=== PATIENT | male | born 1945 | race Caucasian/White ===

== ENCOUNTER → 2018-08-25 | Outpatient (CLI) | payer MEDICARE, OTHER, SELFPAY ==
--- NOTE | 2018-08-25 08:44 | ART_ITS ---
Reason For Study: Claudication Procedure A bilateral lower extremity continuous wave Doppler with analog waveform analysis,segmental pressures,and ankle brachial indexes with exercise. Left Segmental Pressures Left brachial= 125mmHg. Left posterior tibial artery = 156mmHg. Left dorsalis pedis artery = 154mmHg. The left dorsalis pedis waveforms are triphasic. The left posterior tibial artery waveforms are triphasic. Right Segmental Pressures Right brachial= 130mmHg. Right posterior tibial artery = 152mmHg. Right dorsalis pedis artery = 154mmHg. The right dorsalis pedis waveforms are triphasic. The right posterior tibial artery waveforms are triphasic. Indices The right ankle brachial index by the dorsalis pedis is 1.18. The right ankle brachial index by the posterior tibial artery is 1.17. The right post exercise ankle brachial index is 1.34. The left ankle brachial index by the dorsalis pedis is 1.18. The left ankle brachial index by the posterior tibial artery is 1.20. The left post exercise ankle brachial index is 1.44. Interpretation Summary Triphasic Doppler waveforms are noted at ankle level bilaterally. Pulse-volume recording waveform amplitudes are satisfactory bilaterally. Resting ankle-brachial indices are bilaterally normal. Following 5 minutes of ambulation on a treadmill at 1.5 mph and a 5% grade, ankle pressures augment bilaterally, which is a normal physiological response. There is no evidence of significant arterial occlusive disease in the lower extremities bilaterally. Ordering Physician: Marci Rose Referring Physician: Marci Rose Performed By: Tracey Hill RVT
== END | disposition home or self-care (01) ==
LOC: CVS 08:40
PROVIDERS: Family Provider Internal Medicine; PCP Internal Medicine; Referring Provider Internal Medicine; Visit Provider Internal Medicine
DX: I73.9 Peripheral vascular disease, unspecified (principal)
CPT/HCPCS: 93924

== ENCOUNTER 2018-10-11 01:35 | Emergency (ER) | payer MEDICARE, OTHER, SELFPAY ==
[2018-10-11 01:38] VITALS: BP 140/94; PULSE 61; PULSE 74; RESP 16; TEMP 37; O2SAT 97; O2SAT 99; BMI 22.8
--- NOTE | 2018-10-11 01:53 | RAD_ITS ---
STUDY: X-RAY - PELVIS REASON FOR EXAM: Male, 73 years old. Fall TECHNIQUE: One view of the pelvis was obtained. COMPARISON: None. FINDINGS: There is a non-specific bowel gas pattern. Normal visualized soft tissue structures. There is diffuse demineralization of the osseous structures. There is narrowing with cortical sclerosis and osteophyte formation of the sacroiliac joint consistent with degenerative osteoarthritic changes. Normal visualized bilateral superior and inferior pubic rami. There are degenerative changes of the pubic symphysis with articular narrowing and sclerosis. Normal ischial tuberosities. There are osteoarthritic changes of the right femoral head with marginal osteophyte formation. Normal right acetabulum. Normal right hip joint. There are osteoarthritic changes of the left femoral head with marginal osteophyte formation. Normal left acetabulum. Normal left hip joint. RAD/Pelvis 1 or 2 Views IMPRESSION: Degenerative changes and demineralization of the pelvis. Electronically Signed: Bibi Simpson, at 3:08 EDT Tel , Service support ,
--- NOTE | 2018-10-11 01:53 | RAD_ITS ---
STUDY: X-RAY - LUMBAR SPINE REASON FOR EXAM: Male, 73 years old. Fall. Lower back pain TECHNIQUE: 3 view(s) of the lumbar spine were obtained. COMPARISON: None FINDINGS: Normal lumbar lordosis. There is no substantial scoliosis. There is a normal alignment of the vertebrae. There is diffuse demineralization with multi-level endplate spondylosis. There is multi-level degenerative disc disease with multi-level disc space narrowing. The soft tissue structures are unremarkable. RAD/Lumbar Spine 2 or 3 Views IMPRESSION: Degenerative changes of the spine, as detailed above. Electronically Signed: Bibi Simpson, at 3:35 EDT Tel , Service support ,
--- NOTE | 2018-10-11 01:53 | RAD_ITS ---
STUDY: X-RAY - SACRUM/COCCYX REASON FOR EXAM: Male, 73 years old. Fall. Tailbone pain TECHNIQUE: 3 view(s) of the sacrum and coccyx were obtained. COMPARISON: None. FINDINGS: There is degenerative arthrosis of the bilateral sacroiliac joints. There is demineralization of the sacral ala. Normal sacrococcygeal junction with a normal angulation. There is demineralization of the coccygeal segments. The presacral soft tissue structures are unremarkable. RAD/Sacrum-Coccyx min 2 Views IMPRESSION: No acute bone injury of the sacrum and coccyx. Electronically Signed: Bibi Simpson, at 3:38 EDT Tel , Service support ,
--- NOTE | 2018-10-11 02:07 | ED.DCSUM_ITS ---
- ER Visit Summary Date of Service: 10/11/18 Chief Complaint: Fall History of Present Illness: The patient is a 73 M presenting after mechanical fall. Patient states that he was flying a model airplane and lost his balance. He fell backward landing on his buttock. He states he did not hit his head or lose consciousness. He has been able to ambulate. He has pain in his low back. Denies other injuries. He is not on anticoagulants. Physical Examination: Vitals are stable. Patient is afebrile. Alert no acute distress. HEENT exam is unremarkable. Neck is nontender Lungs are clear and equal bilaterally. Heart is regular rate and rhythm. Abdomen is soft nontender nondistended. Back: Mild diffuse lumbar tenderness, no step-off Extremities are unremarkable. Skin is warm and dry. No focal neurologic deficit. Remainder of exam is unremarkable. Emergency Department Course and Treatment: Lumbar spine x-ray, sacrum x-ray, pelvis x-ray showed no fracture. Patient is advised to follow-up with his primary care physician. Advised to return to ED for worsening complaints. Disposition: Discharge home Impression: Lumbar strain, mechanical fall This note was generated with [employer] dictation software. It may contain incorrect words, spelling, and punctuation that were not noted in review of the chart prior to signing ED Disposition - Plan for ED Patient: Instructions: BACK AND NECK PAIN, General Referrals: Marci Rose DO [Primary Care Provider] -
--- NOTE | 2018-10-11 03:54 | ED.DEP ---
ED Disposition - Plan for ED Patient: Instructions: BACK AND NECK PAIN, General Referrals: Marci Rose DO [Primary Care Provider] -
--- NOTE | 2018-10-11 03:58 | ED.DEP ---
ED Disposition - Plan for ED Patient: Instructions: BACK AND NECK PAIN, General Prescriptions: Hydrocodone Bitart/Apap 5-325 [[place] 5MG-325MG] 1 tablet PO Q6H PRN PRN 3 Days #8 tablet PRN Reason: Pain Referrals: Marci Rose DO [Primary Care Provider] -
[2018-10-11 04:04] VITALS: BP 135/92; PULSE 65; RESP 20; O2SAT 100
== END 2018-10-11 04:06 | disposition home or self-care (01) ==
PROVIDERS: Emergency Provider Emergency Medicine; Family Provider Internal Medicine; PCP Internal Medicine
DX: S39.012A Strain of muscle, fascia and tendon of lower back, initial encounter (principal); I10 Essential (primary) hypertension; E78.00 Pure hypercholesterolemia, unspecified; Z79.899 Other long term (current) drug therapy; W01.0XXA Fall on same level from slipping, tripping and stumbling without subsequent striking against object, initial encounter; Y93.89 Activity, other specified; Y92.89 Other specified places as the place of occurrence of the external cause; Y99.8 Other external cause status
CPT/HCPCS: 72100; 72170; 72220; 99282

== ENCOUNTER → 2018-10-17 15:08 | Outpatient (CLI) | payer MEDICARE, OTHER, SELFPAY ==
[2018-10-11 01:38] VITALS: BMI 22.8
--- NOTE | 2018-10-17 15:22 | MRI_ITS ---
STUDY: MRI LUMBAR SPINE WITHOUT CONTRAST REASON FOR EXAM: Male, 73 years old. Back and bilateral leg pain TECHNIQUE: Standardized fat and water weighted pulse sequences were obtained in the sagittal and axial planes. COMPARISON: Radiographic study on October 11, 2018 FINDINGS: No evidence for acute fracture or subluxation. There is low signal intensity on T1 within the central portion of the L3 vertebral body which increases in signal T2 and STIR imaging sequence system with intramedullary bone marrow edema as well as very subtle hairline fracture T12-L1: Normal endplates. Normal disc height, hydration and morphology. Normal bilateral facet joints. Normal central canal and bilateral lateral recesses. Normal bilateral intervertebral neural foramina. Normal lumbar lordosis. There is no substantial scoliosis. Normal conus medullaris that terminates at T12-L1 L1-2: Mild endplate spurring. Normal disc height, desiccation and minimal annular bulge. Normal bilateral facet joints. Normal central canal and bilateral lateral recesses. Normal bilateral intervertebral neural foramina. L2-3: Normal endplates. Normal disc height, desiccation and minor annular bulge with small left foraminal disc protrusion.. Facet arthropathy and thickening of ligamenta flava.. Normal central canal and bilateral lateral recesses. Mild right neuroforaminal encroachment and mild to moderate narrowing on the left L3-4: Endplate spurring.. Normal disc height, desiccation and mild bulging of the annulus and small left foraminal disc protrusion. Mild facet arthropathy and thickening of ligamenta flava.. Normal central canal and bilateral lateral recesses.. Mild right neuroforaminal encroachment and moderate narrowing on the left L4-5: Grade 1 spondylolisthesis. Normal disc height and mild bulging disc osteophyte complex. Bilateral facet arthropathy and thickening of ligamenta flava association with small synovial cyst on the right moderate narrowing of the central canal. Severe right lateral recess and neuroforaminal stenosis. Moderate to severe left lateral recess and neuroforaminal stenosis exaggerated by shortened pedicles. L5-S1: Mild endplate spurring.. Normal disc height, desiccation and mild annular bulge. Facet arthropathy and thickening of ligamenta flava greater on the left. Mild narrowing of the central canal. Mild right lateral recess and neuroforaminal stenosis with moderate narrowing on the left. Normal visualized sacral ala. Normal visualized paraspinous soft tissue structures. No significant change since prior study given differences attributed to differences in imaging techniques MRI/Spine Lumbar (Routine) IMPRESSION: Findings consistent with acute hairline fracture of L3. Multilevel spinal stenosis secondary to disc disease and bony hypertrophy most severe at L4-5 in association with spondylolisthesis and synovial cyst on the right. Other findings as above Electronically Signed: Wojciech Sharif MD at 16:50 EDT , Service support ,
== END ==
PROVIDERS: Family Provider Internal Medicine; PCP Internal Medicine; Referring Provider Internal Medicine; Visit Provider Internal Medicine
DX: M79.606 Pain in leg, unspecified (principal)
CPT/HCPCS: 72148

== ENCOUNTER 2020-02-26 14:32 | Emergency (ER) | payer MEDICARE, OTHER, SELFPAY ==
[2020-02-26] VITALS (7 sets, daily range): BP systolic 111–129; BP diastolic 77–89; PULSE 104–128; RESP 16–28; TEMP 37.2–38.2; O2SAT 92–96; BMI 22.4
--- NOTE | 2020-02-26 15:55 | EKG12_ITS ---
Test Reason : GENERAL ILLNESS Blood Pressure : / mmHG Vent. Rate : 113 BPM Atrial Rate : 113 BPM P-R Int : 142 ms QRS Dur : 088 ms QT Int : 334 ms P-R-T Axes : 045 -38 029 degrees QTc Int : 458 ms Sinus tachycardia Left axis deviation Abnormal ECG Confirmed by GENNA SILVESTRE, SUGAR ([id number]), offline editor JON SALEH ([id number]) on 02/28/2020 10:46:41 AM Referred By: MARY Confirmed By:SUGAR VAIL MD
--- NOTE | 2020-02-26 15:56 | ED.VIS.URI ---
History of Present Illness Chief Complaint: Nausea/Vomiting Informant: Patient Onset: Days - 3 Timing: Continuous Quality: malaise, nausea, cough Current Severity: Moderate Maximum Severity: Moderate Worsened by: - - n/a Relieved by: - - nothing Associated Symptoms: Nausea, Vomiting - mild, Nonproductive cough. Negative for: Nasal Congestion, Headache, Myalgias, Diarrhea, Shortness of Breath, Chest Pain, Hemoptysis Narrative: Patient has had fevers, chills, malaise, nonproductive cough, nausea with decreased appetite and oral intake including fluids, and a couple episodes of nonbilious nonbloody emesis. He denies any chest or abdominal pain. Denies any myalgias, headaches. No loss of taste or smell. He lives alone. Patient presents during the national coronavirus emergency declaration/pandemic. He denies any known contact with anyone infected with COVID-19. He denies traveling out of the immediate area recently. He states that whenever he goes out to stores he wears a mask and tries to be careful during the pandemic. - Past Medical History (1) Hypertension Status: Chronic (2) Hyperlipidemia Status: Chronic (3) Hypothyroidism Status: Chronic (4) Depression Status: Chronic (5) Spinal stenosis Status: Chronic Past Medical History - Allergies and Home Meds Allergies/Adverse Reactions: Allergies No Known Allergies Allergy (Verified 02/26/20 14:37) Primary Care Physician: Marci Rose DO [Primary Care Provider] - As Needed Lives: Alone Smoking Status: Never smoker Review of Systems General: Reports: Chills, Fever, Malaise, Subjective. Denies: Sweats Eyes: Denies: Visual changes - bilaterally, Diplopia ENT: Denies: Bilateral ear pain, Rhinorrhea, Sore throat Cardiovascular: Denies: Chest pain, Palpitations Respiratory: Reports: Cough. Denies: Dyspnea, Sputum, Dyspnea on exertion, Orthopnea Gastrointestinal: Reports: Nausea, Vomiting. Denies: Abdominal pain, Diarrhea, Melena, Hematochezia Genitourinary: Denies: Dysuria, Hematuria, Frequency Musculoskeletal: Denies: Myalgias, Back pain, Swelling, Extremity Pain Skin: Denies: Rash, Wounds Neurological: Denies: Headache, Weakness, Numbness Physical Exam Vital Signs/Narrative: Vital Signs Temp Pulse Resp BP Pulse Ox 02/26/20 15:36 100.8 F H 128 H 28 H 113/79 95 02/26/20 14:33 100.8 F H 128 H 16 113/79 95 Inital Vital Signs reviewed: Yes General: Well nourished, Well developed, - - Well-appearing no distress, conversive in full sentences Head: Normocephalic, Atraumatic Eyes: Perrl, EOMI Nose: Normal Inspection, No Rhinorrhea Mouth/Throat: Normal Inspection, No Posterior Erythema, Airway Patent Neck: Supple, Nontender, No Lymphadenopathy, No Meningismus Cardiovascular: Regular rate, Regular rhythm, No murmurs, Tachycardia Respiratory: No distress, CTA bilaterally, Chest nontender Abdomen: Soft, Nontender, Nondistended, Normal bowel sounds Back: Nontender, Normal Inspection. Negative for: CVA tenderness Extremities: Nontender, No edema. Negative for: Calf Tenderness Skin: Normal color, No rash, No Trauma Neurological: Alert, Oriented x3, Cranial nerves II-XII grossly intact, Normal Strength, Normal Sensation, Normal Gait Psychological: Normal affect, Normal Mood Diagnostic/Tx/Re-eval Chest X-Ray - ED: 1 View, Read by ED Physician, No Acute Disease, Chronic Changes Impressions Chest X-Ray 02/26/20 16:22 IMPRESSION: Low inspiratory volumes, obscured lower lobes. Recommend CT chest for definitive assessment. Electronically Signed: Jes Salamanca, at 16:57 EST Tel , Service support , 02/26/20 16:22 Chest 1 View (Portable) [RAD] Stat Laboratory Results 02/26/20 02/26/20 02/26/20 16:05 16:05 Unknown WBC 8.1 RBC 4.66 Hgb 14.6 Hct 41.9 MCV 89.9 MCH 31.3 MCHC 34.8 RDW Std Deviation 47.3 H RDW Coeff of Alan 15.3 H Plt Count 133 L MPV 11.1 Immature Gran % (Auto) 0.400 Neut % (Auto) 84.2 H Lymph % (Auto) 4.7 L Sampson % (Auto) 10.5 H Eos % (Auto) 0.0 Baso % (Auto) 0.2 Absolute Neuts (auto) 6.8 Absolute Lymphs (auto) 0.38 L Nucleated RBC % 0 Differential Comment SCANNED Sodium 137 Potassium 4.4 Chloride 106 Carbon Dioxide 26.0 Anion Gap 5 BUN 22 H Creatinine 1.40 H Estim Creat Clear Calc 50.49 Est GFR (MDRD) Af Amer 64 Est GFR (MDRD) Non-Af 53 L BUN/Creatinine Ratio 15.7 Glucose 104 Lactic Acid 1.6 Calcium 9.3 Total Bilirubin 0.40 AST 35 ALT 32 Alkaline Phosphatase 65 Troponin I < 0.015 Total Protein 7.7 Albumin 3.8 Globulin 3.9 Albumin/Globulin Ratio 1.0 - Rhythm Strip Rhythm Strip: Sinus Tach Rate: 110 Ectopy: None - EKG Initial EKG Interpretation: No Acute Injury Pattern, Sinus Tachycardia, LAFB Prior: No Prior - Medical Decision Making With Tylenol for his fever and fluids, Zofran, the patient is feeling better and his vital signs improved especially his heart rate, along with his fever. His work-up is consistent with COVID-19 disease that is otherwise uncomplicated. There is no sign of pneumonia on his chest x-ray, and although the interpretation above is noted, I do not think the results of the CT will change the management at this time. We ambulated him around the room, he became hypoxic to 89% on RA just w/ standing. He is in the mid-high 90s on a 2 L nasal cannula. Given this, he is not a candidate for the IV monoclonal antibody infusion, but he is well enough to be discharged home, will prescribe him Decadron in addition to the oxygen we are getting him from the emergency department. The patient was discharged home with appropriate information on this and COVID-19. ED Disposition - Plan for ED Patient: Disposition: Home or Assisted Living Diagnosis: Acute respiratory disease due to COVID-19 virus, Hypoxemia Instructions: Coronavirus Disease 2019 (COVID-19): Caring for Yourself or Others Prescriptions: Dexamethasone [Decadron] 6 mg PO DAILY 7 Days #7 tab Prescription Printed Oxygen, Home [Home Oxygen] 2 lpm NASAL CONT #1 unit Prescription Printed Referrals: Marci Rose DO [Primary Care Provider] - As Needed
[2020-02-26] MEDS: Acetaminophen 500 MG Tablet 1000 MG PO (16:04)
[2020-02-26] MEDS: Ondansetron 4 MG/2 ML Vial IV (16:04)
--- NOTE | 2020-02-26 16:22 | RAD_ITS ---
STUDY: X-RAY CHEST REASON FOR EXAM: Male, 74 years old. FEVER,CHILLS -- 2 TRIES AT FULL INSPIRATION TECHNIQUE: Frontal view of the chest COMPARISON: None. FINDINGS: Inspiratory volumes are low despite patient''s best effort and repeating the exam. There is bilateral basal atelectasis. Lower lobes are obscured by raised hemidiaphragms. There is no pneumothorax, pulmonary edema, pleural effusions or cardiac megaly. Osseous structures are intact. RAD/Chest 1 View (Portable) IMPRESSION: Low inspiratory volumes, obscured lower lobes. Recommend CT chest for definitive assessment. Electronically Signed: Jes Salamanca, at 16:57 EST Tel , Service support ,
[2020-02-26] MEDS: 0.9% Normal Saline 1,000 ML 125 ML IV (16:40)
[2020-02-26 16:46] LABS: AST(SGOT) 35 U/L (15-37); Alanine Aminotransfer ALT/SGPT 32 U/L (16-61); Albumin, Serum 3.8 g/dL (3.2-5.0); Alkaline Phosphatase 65 U/L (45-117); Anion Gap 5 (5-15); BUN 22 mg/dL (7-18); BUN/Creat Ratio 15.7 RATIO (10-20); Calcium,Total 9.3 mg/dL (8.5-10.1); Chloride 106 mmol/L (98-107); EST Glomerular Filtration Rate 53 mL/min (>60); Est Glom Filt Rate - Afr Amer 64 mL/min (>60); Estimated Creatinine Clearance 50.49 ml/min; Globulin 3.9 g/dL (2.2-4.2); Glucose 104 mg/dL (74-106); Potassium 4.4 mmol/L (3.5-5.1); Protein, Total 7.7 g/dL (6.4-8.2); Sodium Level 137 mmol/L (136-145)
[2020-02-26 16:50] LABS: Absolute Lymphocyte Count 0.38 X10^3/uL (0.83-4.51); Absolute Neutrophil Count 6.8 X10^3/uL (2.0-7.7); Basophil# 0.02 X10^3/uL; Basophil% 0.2 % (0-1); Hematocrit 41.9 % (40-54); Hemoglobin 14.6 g/dL (13.0-16.5); Lymphocyte # 0.38 X10^3/ul (4.0); Lymphocyte % 4.7 % (19-41); Mean Corp Hgb Conc 34.8 g/dL (32-36); Mean Corpuscular Hgb 31.3 pg (27.0-32.0); Mean Corpuscular Volume 89.9 fL (80-94); Mean Platelet Vol. 11.1 fl (6.2-12.0); Monocyte# 0.85 X10^3/uL; Monocyte% 10.5 % (0-10); NRBC Flagged by Analyzer 0 % (0-5); Neutrophil # 6.79 X10^3/uL (2.7-7.7); Neutrophil % 84.2 % (47-70); POSITIVE DIFFERENTIAL YES; Platelet Count 133 K/mm3 (150-450); RBC Distribution Width CV 15.3 % (11.6-14.6); RBC Distribution Width SD 47.3 fl (35.1-43.9); Red Blood Count 4.66 M/mm3 (4.6-6.2); White Blood Count 8.1 K/mm3 (4.4-11.0)
[2020-02-26 16:53] LABS: Differential Indicated SCAN CRITERIA MET
[2020-02-26 17:17] LABS: Differential Comment SCANNED
[2020-02-26 17:22] LABS: Lactic Acid 1.6 mmol/L (0.4-1.9)
--- NOTE | 2020-02-26 18:25 | CM.ED ---
SOCIAL WORK Informant: Dr. Andrew Reason for Consult: Discharge Planning-Home O2 due to positive COVID-19 Call to patient's room. Introduced role and reason for referral. Discussed home O2 set up. Patient in agreement for home O2 to be set up through [employer]. Patient A&Ox3. Patient lives home alone, but states has relatives that live locally and are able to check on patient. Patient reports does not smoke. Patient reports does not have pulse ox at home. Informed patient he will be sent home with portable tank and pulse ox. Educated patient on home O2 follow up and that RT to be in to review use of O2 and pulse ox with patient. Patient verbalized understanding and thanked this worker. Nursing staff updated. [facility], [employer], and positive COVID-19 test results faxed and called to [employer], spoke with Elodia. Plan: Home with Home O2. Guanako Amor, PROJECT PLANNER, CHRISTIAN COUNSELOR
--- NOTE | 2020-02-26 19:35 | CM.ED ---
SOCIAL WORK Received call from Cezar with [employer]. Updated patient waiting on ride. [facility] will meet patient at home to set up O2. Patient updated. Guanako Amor, HOT PUNCH PRESS OPERATOR, WHEEL SETTER
--- NOTE | 2020-02-27 14:05 | CASEMGMT ---
LUCRECIA LAWSON DC PHONE CALL DC DATE: 02/26/2020 DC Disposition: Home with oxygen Diagnosis on Discharge: COVID 19 Intro role of CM to patient via phone. Patient had not been wearing his oxygen at home yet. He had mild conversational dyspnea. Asked pt what his pulse oximeter was reading and he stated he did not know as it was in his bag from ER. Offered to wait while patient found pulse ox but he stated he would get it and put his oxygen on. LUCRECIA LAWSON reviewed wearing his oxygen and checking pulse ox at rest and with activity and to notify his PCP with any increased shortness of breath or pulse ox staying below 89% at rest. Pt stated he would. -He has his medications, no questions. Sohan BECKWITHN RN ACM
--- NOTE | 2020-02-28 15:28 | CASEMGMT ---
LUCRECIA LAWSON DC PHONE CALL DC DATE: 02/26/2020 DC Disposition: Home with oxygen Diagnosis on Discharge: COVID 19 Intro role of CM to patient via phone. Pt states he wore his oxygen overnight and states is 'feeling a little better.' Pt is speaking in full sentences at this time. Pt states was having some concerns with his concentrator and was just picking up the phone to call [employer] and will call him as soon as he is off phone. Pt states no SOB or fevers at this time. Pt states no questions regarding discharge instructions/medications at this time. Pt thanks this RN CM for call and states no further questions/concerns/needs at this time. SStaten LUCRECIA LAWSON
--- NOTE | 2020-02-29 10:15 | CASEMGMT ---
LUCRECIA LAWSON DC PHONE CALL DC DATE: 02/26/2020 DC Disposition: Home with oxygen Diagnosis on Discharge: COVID 19 Attempted to reach pt without success at this time, message left for pt to call this LUCRECIA LAWSON back if/when able. Attempted to call [facility] to see if they went out to check pt's concentrator but unable to reach them at this time. Will attempt again later. Eliu SINGER CM
== END 2020-02-26 20:06 | disposition home or self-care (01) ==
PROVIDERS: Emergency Provider Emergency Medicine; PCP Internal Medicine
DX: U07.1 COVID-19 (principal); R09.02 Hypoxemia; J06.9 Acute upper respiratory infection, unspecified; I10 Essential (primary) hypertension; E78.5 Hyperlipidemia, unspecified; E03.9 Hypothyroidism, unspecified; Z99.81 Dependence on supplemental oxygen; Z79.899 Other long term (current) drug therapy
CPT/HCPCS: 71045; 80053; 83605; 84484; 85025; 87426; 93005; 96361; 96374; 99285; J7030; A4216; J2405

== ENCOUNTER 2020-03-02 15:03 | Inpatient (IN) | payer MEDICARE, OTHER, SELFPAY ==
[2020-02-26 14:33] VITALS: BMI 22.4
[2020-03-02] VITALS (9 sets, daily range): BP systolic 131–138; BP diastolic 78–97; PULSE 78–106; RESP 16–27; TEMP 36.4–37.4; O2SAT 91–96; BMI 22.4; BMI 23.0
--- NOTE | 2020-03-02 15:17 | EKG12_ITS ---
Test Reason : Blood Pressure : / mmHG Vent. Rate : 095 BPM Atrial Rate : 095 BPM P-R Int : 134 ms QRS Dur : 090 ms QT Int : 334 ms P-R-T Axes : 037 -33 031 degrees QTc Int : 419 ms Normal sinus rhythm with sinus arrhythmia Left axis deviation Abnormal ECG Confirmed by GIANNI SILVESTRE, ROLO ([id number]), senior editor JON SALEH ([id number]) on 03/07/2020 10:10:49 AM Referred By: AL Confirmed By:KIMMY ARCHER MD
--- NOTE | 2020-03-02 15:19 | ED.DCSUM_ITS ---
History of Present Illness Chief Complaint: Cough Informant: Patient Onset: Days Context: Gradual Onset Current Severity: Moderate Maximum Severity: Moderate Narrative: Patient seen in the ER on February 25 and diagnosed with Covid. He was treated with Decadron and home oxygen. Patient returns today stating he is just not feeling any better. In spite of wearing his oxygen at home he states he has episodes where he feels smothered and has difficulty breathing. He has not had significant chest pain. His cough is nonproductive. He does report eating but states he is full after just a few bites. - Past Medical History (1) Depression Status: Chronic (2) Hyperlipidemia Status: Chronic (3) Hypertension Status: Chronic (4) Hypothyroidism Status: Chronic (5) Spinal stenosis Status: Chronic Past Medical History - Allergies and Home Meds Allergies/Adverse Reactions: Allergies No Known Allergies Allergy (Verified 03/02/20 15:06) Prior records reviewed: Yes Smoking Status: Never smoker - Family History Maternal Family History: Reports: - - Patient denies any market maternal family history including heart disease, diabetes, cancer. Paternal Family History: Reports: Pulmonary Disease - Patient notes his father had underlying lung disease with significant heavy tobacco use. Review of Systems General: Denies: Chills Eyes: Denies: Visual changes - bilaterally ENT: Denies: Bilateral ear pain Cardiovascular: Denies: Chest pain Respiratory: Reports: Dyspnea, Cough. Denies: Sputum Gastrointestinal: Denies: Abdominal pain, Vomiting, Diarrhea Musculoskeletal: Reports: Myalgias Neurological: Reports: Weakness - Generalized weakness Hematologic: Denies: Easy bruising, Easy bleeding Allergy: Denies: Uticaria Physical Exam Vital Signs/Narrative: Vital Signs Temp Pulse Resp BP Pulse Ox 03/02/20 15:04 97.6 F L 106 H 16 132/88 H 96 Inital Vital Signs reviewed: Yes General: Well nourished, Well developed Head: Normocephalic ENT: Moist mucous membranes Neck: Supple Cardiovascular: Regular rate, Regular rhythm Respiratory: Diminished Abdomen: Soft, Nontender Extremities: Nontender Skin: Normal color Neurological: Alert, Oriented x3 Psychological: Normal affect Diagnostic/Tx/Re-eval Chest X-Ray - ED: 1 View, Read by ED Physician, Chronic Changes - Shallow inspiration. Questionable infiltrate left base. Impressions Chest X-Ray 03/02/20 15:45 IMPRESSION: Continued shallow chest expansion with bilateral atelectatic changes. Negative for other infiltrates in the upper lung zones. Lung bases partially obscured by diaphragms. Electronically Signed: Ambar Dubon MD at 16:07 EST , Service support , Chest CTA 03/02/20 16:15 IMPRESSION: Negative for pulmonary embolus. Mild plaque and elongation of the thoracic aorta without aneurysm or dissection. Normal cardiac size without pericardial effusion. Shallow inspiration or elevation of the diaphragms with bibasilar atelectatic changes with more consolidative features in the left posterior costophrenic angle, potential pneumonia. Dense band of atelectasis in the superior segment left lower lobe. Otherwise minimal scattered groundglass changes. Negative for pleural effusion. No acute bone findings or acute findings in the uppermost abdomen. Electronically Signed: Ambar Dubon MD at 17:27 EST , Service support , 03/02/20 15:45 Chest 1 View (Portable) [RAD] Stat 03/02/20 16:15 CTA Chest W/WO Contrast [CT] Stat Laboratory Results 03/02/20 03/02/20 03/02/20 15:30 15:30 15:30 WBC 6.7 RBC 4.95 Hgb 13.9 Hct 42.6 MCV 86.1 MCH 28.1 MCHC 32.6 D RDW Std Deviation 45.0 H RDW Coeff of Alan 14.3 Plt Count 131 L MPV 10.9 Immature Gran % (Auto) 0.900 Neut % (Auto) 82.2 H Lymph % (Auto) 7.7 L [place] % (Auto) 8.9 Eos % (Auto) 0.0 Baso % (Auto) 0.3 Absolute Neuts (auto) 5.5 Absolute Lymphs (auto) 0.51 L Nucleated RBC % 0 Differential Comment SCANNED D-Dimer Quant (PE/DVT) 0.74 H* Sodium 136 Potassium 4.0 Chloride 105 Carbon Dioxide 24.0 Anion Gap 7 BUN 28 H Creatinine 1.23 Estim Creat Clear Calc 57.47 Est GFR (MDRD) Af Amer 74 Est GFR (MDRD) Non-Af 61 BUN/Creatinine Ratio 22.8 H Glucose 106 Lactic Acid Calcium 8.8 Total Bilirubin 0.50 Direct Bilirubin 0.21 AST 33 ALT 34 Alkaline Phosphatase 53 Troponin I < 0.015 Total Protein 7.3 Albumin 3.3 Globulin 4.0 03/02/20 15:30 WBC RBC Hgb Hct MCV MCH MCHC RDW Std Deviation RDW Coeff of Alan Plt Count MPV Immature Gran % (Auto) Neut % (Auto) Lymph % (Auto) [place] % (Auto) Eos % (Auto) Baso % (Auto) Absolute Neuts (auto) Absolute Lymphs (auto) Nucleated RBC % Differential Comment D-Dimer Quant (PE/DVT) Sodium Potassium Chloride Carbon Dioxide Anion Gap BUN Creatinine Estim Creat Clear Calc Est GFR (MDRD) Af Amer Est GFR (MDRD) Non-Af BUN/Creatinine Ratio Glucose Lactic Acid 1.2 Calcium Total Bilirubin Direct Bilirubin AST ALT Alkaline Phosphatase Troponin I Total Protein Albumin Globulin - EKG Initial EKG Interpretation: Sinus Rhythm - Sinus at 95 with sinus arrhythmia. No acute ST change. - Medical Decision Making Patient was observed. Sitting at rest he is stable on room air. With ambul ation he dropped his O2 sat to 87%. Patient has been on home O2 as needed without significant improvements. He does live alone. Lab work is reviewed. D-dimer is elevated and CTA does not show evidence of PE. Chest x-ray per my interpretation reveals chronic changes with questionable infiltrate. Patient will be admitted for further treatment. ED Disposition - Plan for ED Patient: Disposition: Home or Assisted Living Diagnosis: COVID-19
[2020-03-02 15:42] LABS: Absolute Lymphocyte Count 0.51 X10^3/uL (0.83-4.51); Absolute Neutrophil Count 5.5 X10^3/uL (2.0-7.7); Basophil# 0.02 X10^3/uL; Basophil% 0.3 % (0-1); Hematocrit 42.6 % (40-54); Hemoglobin 13.9 g/dL (13.0-16.5); Lymphocyte # 0.51 X10^3/ul (4.0); Lymphocyte % 7.7 % (19-41); Mean Corp Hgb Conc 32.6 g/dL (32-36); Mean Corpuscular Hgb 28.1 pg (27.0-32.0); Mean Corpuscular Volume 86.1 fL (80-94); Mean Platelet Vol. 10.9 fl (6.2-12.0); Monocyte# 0.59 X10^3/uL; Monocyte% 8.9 % (0-10); NRBC Flagged by Analyzer 0 % (0-5); Neutrophil # 5.47 X10^3/uL (2.7-7.7); Neutrophil % 82.2 % (47-70); POSITIVE DIFFERENTIAL YES; Platelet Count 131 K/mm3 (150-450); RBC Distribution Width CV 14.3 % (11.6-14.6); Red Blood Count 4.95 M/mm3 (4.6-6.2); White Blood Count 6.7 K/mm3 (4.4-11.0)
--- NOTE | 2020-03-02 15:45 | RAD_ITS ---
STUDY: X-RAY CHEST REASON FOR EXAM: Male, 74 years old. COVID POSITIVE. COUGH. TECHNIQUE: 1 view COMPARISON: Prior chest radiograph of 02/26/2020 FINDINGS: Continued shallow chest expansion with basilar atelectasis on the right and broad bands of atelectasis in the left mid lung. Negative for other infiltrate types in the upper lung zones. Lung bases largely obscured by the diaphragms. Normal size heart. Normal mediastinum and bernardino. Normal visualized pulmonary arteries. There is atherosclerotic tortuosity of the aortic arch and descending thoracic aorta. Degenerative changes of the spine with a dextroscoliosis. Normal visualized ribs, clavicles, and shoulders. There is no demonstrated abnormality of the visualized soft tissue structures of the upper abdomen. RAD/Chest 1 View (Portable) IMPRESSION: Continued shallow chest expansion with bilateral atelectatic changes. Negative for other infiltrates in the upper lung zones. Lung bases partially obscured by diaphragms. Electronically Signed: Ambar Dubon MD at 16:07 EST , Service support ,
[2020-03-02 16:00] LABS: AST(SGOT) 33 U/L (15-37); Alanine Aminotransfer ALT/SGPT 34 U/L (16-61); Albumin, Serum 3.3 g/dL (3.2-5.0); Alkaline Phosphatase 53 U/L (45-117); Anion Gap 7 (5-15); BUN 28 mg/dL (7-18); BUN/Creat Ratio 22.8 RATIO (10-20); Bilirubin, Direct 0.21 mg/dL (0.00-0.30); Calcium,Total 8.8 mg/dL (8.5-10.1); Chloride 105 mmol/L (98-107); Creatinine, Serum 1.23 mg/dL (0.70-1.30); EST Glomerular Filtration Rate 61 mL/min (>60); Est Glom Filt Rate - Afr Amer 74 mL/min (>60); Estimated Creatinine Clearance 57.47 ml/min; Glucose 106 mg/dL (74-106); Protein, Total 7.3 g/dL (6.4-8.2); Sodium Level 136 mmol/L (136-145)
[2020-03-02 16:06] LABS: Lactic Acid 1.2 mmol/L (0.4-1.9)
[2020-03-02 16:10] LABS: D-Dimer Quantitative (DVT/PE) 0.74 FEU/ug/m (0.27-0.49)
[2020-03-02 16:11] LABS: Differential Indicated SCAN CRITERIA MET
--- NOTE | 2020-03-02 16:15 | CT_ITS ---
STUDY: CTA CHEST REASON FOR EXAM: Male, 74 years old. Worsening SOB, + COVID 5 days ago. Hx hypertension. RADIATION DOSAGE (If Supplied By Facility): CTDIvol = ( 11.11 ) mGy, DLP = ( 396.18 ) mGycm TECHNIQUE: The examination was performed with the intravenous administration of IV 100mL Isovue-370. Post-processing of the angiographic images was performed, with multiplanar reformation and 3D reconstruction. Individualized dose optimization techniques were used for this CT. COMPARISON: Portable chest radiograph from 03/02/2020 FINDINGS: Normal enhancement of the main pulmonary artery and right and left pulmonary arteries. Normal enhancement of the bilateral peripheral pulmonary arteries. There is no demonstrated pulmonary embolism. Mild elongation of the thoracic aorta with minimal plaque. Negative for aneurysm. There is no demonstrated aortic dissection. Normal heart and pericardium. Normal mediastinum. Normal hilar regions. Normal visualized trachea and bronchi. Shallow inspiration or elevated diaphragms. Next field bibasilar atelectatic changes with more consolidative features in the left posterior costophrenic angle. Dense band of atelectasis in the superior segment of left lower lobe. Otherwise scattered minimal groundglass changes. Negative for pleural effusion. Normal chest wall structures. There are degenerative changes of thoracic spine. No acute findings in the uppermost abdomen. CT/CTA Chest W/WO Contrast IMPRESSION: Negative for pulmonary embolus. Mild plaque and elongation of the thoracic aorta without aneurysm or dissection. Normal cardiac size without pericardial effusion. Shallow inspiration or elevation of the diaphragms with bibasilar atelectatic changes with more consolidative features in the left posterior costophrenic angle, potential pneumonia. Dense band of atelectasis in the superior segment left lower lobe. Otherwise minimal scattered groundglass changes. Negative for pleural effusion. No acute bone findings or acute findings in the uppermost abdomen. Electronically Signed: Ambar Dubon MD at 17:27 EST , Service support ,
[2020-03-02 16:34] LABS: Differential Comment SCANNED
--- NOTE | 2020-03-02 16:49 | PCM.HP.STD ---
Problem List (1) Hypoxia Status: Acute (2) COVID-19 Status: Acute (3) Hypertension Status: Chronic Qualifiers: Hypertension type: essential hypertension Qualified Code(s): I10 - Essential (primary) hypertension (4) Hyperlipidemia Status: Chronic Qualifiers: Hyperlipidemia type: unspecified Qualified Code(s): E78.5 - Hyperlipidemia, unspecified (5) Hypothyroidism Status: Chronic Qualifiers: Hypothyroidism type: unspecified Qualified Code(s): E03.9 - Hypothyroidism, unspecified (6) Depression Status: Chronic Qualifiers: Depression Type: unspecified Qualified Code(s): F32.9 - Major depressive disorder, single episode, unspecified (7) Spinal stenosis Status: Chronic Qualifiers: Spinal region: unspecified Qualified Code(s): M48.00 - Spinal stenosis, site unspecified History of Present Illness Date of Admission: 03/02/20 Chief Complaint: Fever, chills, nausea, emesis, cough, dyspnea, COVID positive The patient is a 74 y/o M w/ PMHx: HTN, HLD, Hypothyroidism, Depression, Chronic back pain with spinal stenosis who presents to the [facility] ED on 03/02/20 with history of recent evaluation on 02/26/20 secondary to onset of fever, chills, nausea, emesis, malaise, myalgias, cough and dyspnea x 3 days with + COVID testing at that time with noted hypoxia with activity with discharge to home on decadron and 2L NC who now re-presents to the [facility] ED with ongoing symptoms, not improving and increased dyspnea, describes it as being smothered. Work-up in the ED included T, 97.6, heart rate 106, BP 132/88, respiratory rate 97, 96% on room air at rest but noted to be 87% on room air with exertion, clinically improved with resumption of 2 L nasal cannula, CBC with WC 6.7, hemoglobin 13.9, platelet 131 with lymphopenia, D-dimer 0.74, CMP not marked appearing aside BUN/creatinine 28/1.23, troponin less than 0.015, lactic acid 1.2, blood culture x2 pending per ED, chest x-ray with poor expansion, bilateral atelectatic changes, CTPA pending upon requested evaluation of patient. Past Medical History Past Medical History (Chronic Problems): Chronic Problems Hypertension (Chronic) Hyperlipidemia (Chronic) Hypothyroidism (Chronic) Depression (Chronic) Spinal stenosis (Chronic) Allergies No Known Allergies Allergy (Verified 03/02/20 15:06) Home Medications: Ambulatory Orders Medication Instructions Recorded Levothyroxine Sodium [Synthroid] 50 mcg PO DAILY 10/11/18 Lisinopril/Hydrochlorothiazide 5 - 6.25 mg PO DAILY 10/11/18 [Lisinopril-Hctz 10-12.5 mg Tab] Paroxetine HCl 30 mg PO DAILY 10/11/18 Simvastatin 10 mg PO DAILY 10/11/18 Cholecalciferol (Vitamin D3) 100 mcg PO DAILY 02/26/20 [Vitamin D3] Dexamethasone [Decadron] 6 mg PO DAILY 7 Days #7 tab 02/26/20 Oxygen, Home [Home Oxygen] 2 lpm NASAL CONT #1 unit 02/26/20 Surgical History: no surgical history Psychiatric History: Anxiety, Depression Lives: Alone Smoking Status: Never smoker Tobacco Use: Non-smoker Alcohol: None Drugs: None - *Family History Maternal History Items: - - Patient denies any market maternal family history including heart disease, diabetes, cancer. Paternal History Items: Pulmonary Disease - Patient notes his father had underlying lung disease with significant heavy tobacco use. Review of Systems Constitutional: Reports: Anorexia, Chills, Fever, Malaise, Weakness, Fatigue. Denies: Weight Change HEENT: Reports: Head Aches. Denies: Sinus Congestion, Sinus Drainage Cardiovascular: Denies: Chest Pain, Chest Pressure, Chest Tightness, Light Headedness, Orthopnea, Palpitations, Syncope Respiratory: Reports: Cough, Shortness of Breath, Shortness of breath at rest, Shortness of breath upon exertion. Denies: Sputum production, Wheezing Gastrointestinal: Reports: Nausea, Vomiting. Denies: Abdominal Pain Genitourinary: Denies: Dysuria Musculoskeletal: Reports: Joint Pain, Muscle pain. Denies: Joint Tenderness Skin: Denies: Rash, Wounds Neurological: Denies: Numbness, Tingling, Focal weakness Psychiatric: Reports: Anxiety, Depression. Denies: Homicidal Ideations, Suicidal Ideations Hematologic/ Lymphatic: Denies: Easy Bruising, Easy Bleeding VTE Information - Inpt Only VTE Present on Admission: No VTE Mechan Device Prophylaxis: SCD's VTE Pharm Prophylaxis ordered?: Yes Subjective: Patient seated upright in the ED bed, fatigued appearing, increased respiratory rate, some accessory muscle usage and hypoxia. Objective: Physical Examination: General: awake, alert, oriented x 3 and cooperative, seated upright in the ED bed, fatigued and ill-appearing, increased respiratory rate and some accessory muscle usage, notable hypoxia with ambulation attempt. Skin: normal color, turgor, no icterus, cyanosis. HEENT: AT/NC, EOMI, PERRLA, dry MM, no carotid bruits or JVD noted. Lungs: Diminished breath sounds, greater bases, increased effort, increased respiratory rate with some accessory muscle usage, notable hypoxia with ambulatory attempts, no rales, ronchi or wheezing. Heart: Mildly tachycardic with regular rhythm; no gallop, rub audible. Abdomen: soft, NTTP, ND, hyperactive BS, no HSM. Extremities: no cyanosis, clubbing, or edema. Neurological: patient awake, alert, oriented as noted; cognitive function intact; pupils equally reactive to light and accomodation; cranial nerves II-XII grossly normal, moving all 4 extremities, no focal deficits, strength severely globally decreased secondary to acute presentation. Psychiatric: affect appears fatigued, ill-appearing, some respiratory distress as noted, no acute evidence of depressive or anxiety feelings. - Physical Exam Vitals/I&O's: Vital Signs Temp Pulse Resp BP Pulse Ox 97.6 F L 95 27 H 132/88 H 96 03/02/20 15:43 03/02/20 15:43 03/02/20 15:43 03/02/20 15:43 03/02/20 15:43 Oxygen Flow Rate (L/min) 2 Oxygen Delivery Method Room Air Weight: 165 lb Body Mass Index (BMI) 22.4 Laboratory Results 03/02/20 15:30: WBC 6.7, RBC 4.95, Hgb 13.9, Hct 42.6, MCV 86.1, MCH 28.1, MCHC 32.6 D, RDW Std Deviation 45.0 H, RDW Coeff of Alan 14.3, Plt Count 131 L, MPV 10.9, Immature Gran % (Auto) 0.900, Neut % (Auto) 82.2 H, Lymph % (Auto) 7.7 L, [place] % (Auto) 8.9, Eos % (Auto) 0.0, Baso % (Auto) 0.3, Absolute Neuts (auto) 5.5, Absolute Lymphs (auto) 0.51 L, Nucleated RBC % 0, Differential Comment SCANNED 03/02/20 15:30: D-Dimer Quant (PE/DVT) 0.74 H* 03/02/20 15:30: Sodium 136, Potassium 4.0, Chloride 105, Carbon Dioxide 24.0, Anion Gap 7, BUN 28 H, Creatinine 1.23, Estim Creat Clear Calc 57.47, Est GFR (MDRD) Af Amer 74, Est GFR (MDRD) Non-Af 61, BUN/Creatinine Ratio 22.8 H, Glucose 106, Calcium 8.8, Total Bilirubin 0.50, Direct Bilirubin 0.21, AST 33, ALT 34, Alkaline Phosphatase 53, Troponin I < 0.015, Total Protein 7.3, Albumin 3.3, Globulin 4.0 03/02/20 15:30: Lactic Acid 1.2 Assessment/Plan All Active Problems Hypoxia (Acute) COVID-19 (Acute) The patient is a 74 y/o M w/ PMHx: HTN, HLD, Hypothyroidism, Depression, Chronic back pain with spinal stenosis who presents to the [facility] ED on 03/02/20 with history of recent evaluation on 02/26/20 secondary to onset of fever, chills, nausea, emesis, malaise, myalgias, cough and dyspnea x 3 days with + COVID testing at that time with noted hypoxia with activity with discharge to home on decadron and 2L NC who now re-presents to the [facility] ED with ongoing symptoms, not improving and increased dyspnea. 1. Acute HypoxiC Respiratory Failure secondary to Acute Viral Syndrome, COVID-19, Suspect developing COVID-19 Pneumonia: Recent ED evaluation with + COVID status, discharged on home oxygen given hypoxia with activity, returns with worsening symptoms, will admit to the COVID unit, awaiting CTPA results and if evidence of pulmonary emboli will escalate Lovenox to therapeutic level, will maintain on oxygen with wean as tolerated to room air, HOB, IS parameters w/ pending sputum cultures, respiratory viral panel and urine antigens, will obtain procalcitonin, CRP, CPK, Ferritin, LDH, continue supportive care including q 2 hour turning including prone given no prone bed availability and judicious hydration, closely monitor for worsening status for ARDS and multiorgan failure, consult infectious disease, continue IV decadron for completion 10 day course, initiate remdesivir given status and presentation but defer to ID discretion. 2. Hypertension: Continue home regimen including lisinopril, hydrochlorothiazide with hold parameters as needed, PRN hydralazine. 3. Hypothyroidism: Continue home synthroid regimen. 4. Anxiety and depression: We will continue patient home paroxetine regimen. 5. Hyperlipidemia: Continue home statin regimen. 6. DVT prophylaxis: SCDs, Lovenox. 7. 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 Discussed CODE status at length including difference between FULL code, DNR-CCA and DNR-CC status. Following discussions about the differences in these status, requested Full Code status. Advanced Care Planning Face to Face Time: 16 minutes. Inpatient E&M: 85497 Init Hosp L3 Procedures: 03719 Advncd Care Plan 30 Min
--- NOTE | 2020-03-02 17:31 | ED.RN ---
[facility]AN[facility]A [facility] PHONE NUMBER IS [phone].
[2020-03-02 20:04] LABS: Ferritin 632 ng/mL (26-388); LDH 272 U/L (87-241); Magnesium 2.2 mg/dL (1.6-2.6)
[2020-03-02 20:10] LABS: Procalcitonin 0.13 ng/mL (0.00-0.09)
[2020-03-02 20:17] LABS: BNP,B-Type NATRIURETIC PEPTIDE 9.5 pg/mL (0-100)
[2020-03-02] MEDS: 0.9% Normal Saline 1,000 ML 100 ML IV (22:00)
[2020-03-02] MEDS: Enoxaparin 60 MG/0.6 ML Syringe 30 MG SC (22:01)
[2020-03-02] MEDS: Famotidine 20 MG Tablet PO (22:01)
--- NOTE | 2020-03-02 22:55 | PCS.PANDOC ---
PANDEMIC DOCUMENTATION INITIATED: Date: 03/02/2020 Time: 4717
[2020-03-03] VITALS (7 sets, daily range): BP systolic 108–149; BP diastolic 71–93; PULSE 66–73; RESP 18–20; TEMP 36.2–36.9; O2SAT 93–96
[2020-03-03 06:48] LABS: Absolute Lymphocyte Count 0.62 X10^3/uL (0.83-4.51); Absolute Neutrophil Count 2.7 X10^3/uL (2.0-7.7); Basophil# 0.01 X10^3/uL; Basophil% 0.2 % (0-1); Hematocrit 41.1 % (40-54); Hemoglobin 13.1 g/dL (13.0-16.5); Lymphocyte # 0.62 X10^3/ul (4.0); Lymphocyte % 14.8 % (19-41); Mean Corp Hgb Conc 31.9 g/dL (32-36); Mean Corpuscular Hgb 28.1 pg (27.0-32.0); Mean Corpuscular Volume 88.2 fL (80-94); Mean Platelet Vol. 10.9 fl (6.2-12.0); Monocyte# 0.76 X10^3/uL; Monocyte% 18.2 % (0-10); NRBC Flagged by Analyzer 0 % (0-5); Neutrophil # 2.74 X10^3/uL (2.7-7.7); Neutrophil % 65.6 % (47-70); Platelet Count 126 K/mm3 (150-450); RBC Distribution Width CV 14.3 % (11.6-14.6); RBC Distribution Width SD 46.2 fl (35.1-43.9); Red Blood Count 4.66 M/mm3 (4.6-6.2); White Blood Count 4.2 K/mm3 (4.4-11.0)
[2020-03-03 07:02] LABS: ALB/GLOB Ratio 0.7 RATIO (0.9-2.4); AST(SGOT) 27 U/L (15-37); Alanine Aminotransfer ALT/SGPT 30 U/L (16-61); Albumin, Serum 2.9 g/dL (3.2-5.0); Alkaline Phosphatase 45 U/L (45-117); Anion Gap 6 (5-15); BUN 24 mg/dL (7-18); BUN/Creat Ratio 22.6 RATIO (10-20); Calcium,Total 8.7 mg/dL (8.5-10.1); Chloride 107 mmol/L (98-107); Creatinine, Serum 1.06 mg/dL (0.70-1.30); EST Glomerular Filtration Rate 73 mL/min (>60); Est Glom Filt Rate - Afr Amer 88 mL/min (>60); Estimated Creatinine Clearance 67.09 ml/min; Globulin 3.9 g/dL (2.2-4.2); Glucose 115 mg/dL (74-106); Potassium 4.6 mmol/L (3.5-5.1); Protein, Total 6.8 g/dL (6.4-8.2); Sodium Level 138 mmol/L (136-145)
--- NOTE | 2020-03-03 07:03 | PN_ITS ---
Patient Problems: Active and Suspected Problems Hypoxia (Acute) COVID-19 (Acute) Subjective: The patient is a 74 y/o M w/ PMHx: HTN, HLD, Hypothyroidism, Depression, Chronic back pain with spinal stenosis who presented to the [facility] ED on 03/02/20 with history of recent evaluation on 02/26/20 secondary to onset of fever, chills, nausea, emesis, malaise, myalgias, cough and dyspnea x 3 days with + COVID testing at that time with noted hypoxia with activity with discharge to home on decadron and 2L NC who now re-presents to the [facility] ED with ongoing symptoms, not improving and increased dyspnea. Recent ED evaluation with + COVID status, discharged on home oxygen given hypoxia with activity, returns with worsening symptoms. Admitted to the COVID unit, CTPA with no acute evidence of pulmonary emboli, shallow inspiration or elevation of the diaphragms with bibasilar atelectatic changes more consolidative feature to the left posterior costophrenic angle with dense bands of atelectasis in the superior segment of the left lower lobe with minimal scattered ground-glass changes. Will maintain on oxygen with wean as tolerated to room air, HOB, IS parameters w/ negative respiratory viral panel and negative urine antigens. Lactic acid 1.2, ferritin 632, LDH 272, troponin less than 0.015, D-dimer 0.74, CRP 39, pro calcitonin 0. 13. Will continue supportive care including q 2 hour turning including prone given no prone bed availability and judicious hydration, closely monitor for worsening status for ARDS and multiorgan failure, pending evaluation per infectious disease, continued IV decadron for completion 10 day course, initiated remdesivir given status and presentation but defer to ID discretion. PT/OT/CM consulted for discharge planning given notable weakness, currently also of note living alone. Patient with no acute events overnight per self and per nursing report. Patient appears significantly fatigued this morning and does need assistance per staff with activity noted to be unstable. Patient notes nausea, emesis, cough and dyspnea are mildly lessened and since initial presentation but still dyspnea primarily with exertion and coughing. Patient notes appetite may have improved mildly. Patient denies fevers, chills, abdominal pain, chest pain. Objective: Physical Examination: General: awake, alert, oriented x 3 and cooperative, seated upright in the [facility] bed, fatigued appearance, improved pulmonary appearance. Skin: normal color, turgor, no icterus, cyanosis. HEENT: AT/NC, EOMI, PERRLA, improved MMM. Lungs: Diminished breath sounds, greater bases, improved effort, less dyspneic appearing than day prior, no rales, ronchi or wheezing. Heart: Regular rate and regular rhythm; no gallop, rub audible. Abdomen: soft, NTTP, ND, normalizing BS. Extremities: no cyanosis, clubbing, or edema. Neurological: patient awake, alert, oriented as noted; cognitive function intact; pupils equally reactive to light and accomodation; cranial nerves II-XII grossly normal, moving all 4 extremities, no focal deficits, strength improving, moderately to severely globally decreased secondary to acute presentation. Psychiatric: affect appears fatigued, no acute evidence of depressive or anxiety feelings. Vitals/I&O's: Vital Signs Temp Pulse Resp BP Pulse Ox 97.1 F L 67 18 149/93 H 96 03/03/20 02:43 03/03/20 02:43 03/03/20 03:40 03/03/20 02:43 03/03/20 02:43 Oxygen Flow Rate (L/min) 5 Oxygen Delivery Method Nasal Cannula Weight: 166 lb 0.129 oz Body Mass Index (BMI) 23.0 Intake and Output for Last 24 Hours 03/01/20 03/02/20 03/03/20 23:59 23:59 23:59 Intake Total 250 / 250 Output Total 275 / 275 Balance -265 / -265 250 / 250 Microbiology Past 72 Hours 03/02/20 22:20 Mucosa - Nasopharyngeal Respiratory Panel (PCR) - Final 03/02/20 22:15 Urine, Random Legionella Antigen - Final 03/02/20 22:15 Urine, Random Streptococcus pneumoniae Antigen (M - Final Laboratory Results 03/02/20 15:30: WBC 6.7, RBC 4.95, Hgb 13.9, Hct 42.6, MCV 86.1, MCH 28.1, MCHC 32.6 D, RDW Std Deviation 45.0 H, RDW Coeff of Alan 14.3, Plt Count 131 L, MPV 10.9, Immature Gran % (Auto) 0.900, Neut % (Auto) 82.2 H, Lymph % (Auto) 7.7 L, Lyman % (Auto) 8.9, Eos % (Auto) 0.0, Baso % (Auto) 0.3, Absolute Neuts (auto) 5.5, Absolute Lymphs (auto) 0.51 L, Nucleated RBC % 0, Differential Comment SCANNED 03/02/20 15:30: D-Dimer Quant (PE/DVT) 0.74 H* 03/02/20 15:30: Sodium 136, Potassium 4.0, Chloride 105, Carbon Dioxide 24.0, Anion Gap 7, BUN 28 H, Creatinine 1.23, Estim Creat Clear Calc 57.47, Est GFR (MDRD) Af Amer 74, Est GFR (MDRD) Non-Af 61, BUN/Creatinine Ratio 22.8 H, Glucose 106, Calcium 8.8, Total Bilirubin 0.50, Direct Bilirubin 0.21, AST 33, ALT 34, Alkaline Phosphatase 53, Troponin I < 0.015, Total Protein 7.3, Albumin 3.3, Globulin 4.0 03/02/20 15:30: Lactic Acid 1.2 03/02/20 15:30: Magnesium 2.2, Ferritin 632 H, Lactate Dehydrogenase 272 H, C- React Prot Ext Range 39.00 H 03/02/20 15:30: B-Natriuretic Peptide 9.5 03/02/20 15:30: Procalcitonin 0.13 H 03/03/20 06:00: WBC 4.2 L, RBC 4.66, Hgb 13.1, Hct 41.1, MCV 88.2, MCH 28.1, MCHC 31.9 L, RDW Std Deviation 46.2 H, RDW Coeff of Alan 14.3, Plt Count 126 L, MPV 10.9, Immature Gran % (Auto) 1.200 H, Neut % (Auto) 65.6, Lymph % (Auto) 14.8 L, Lyman % (Auto) 18.2 H, Eos % (Auto) 0.0, Baso % (Auto) 0.2, Absolute Neuts (auto) 2.7, Absolute Lymphs (auto) 0.62 L, Nucleated RBC % 0 03/03/20 06:00: Sodium 138, Potassium 4.6, Chloride 107, Carbon Dioxide 25.0, Anion Gap 6, BUN 24 H, Creatinine 1.06, Estim Creat Clear Calc 67.09, Est GFR (MDRD) Af Amer 88, Est GFR (MDRD) Non-Af 73, BUN/Creatinine Ratio 22.6 H, Glucose 115 H, Calcium 8.7, Total Bilirubin 0.50, AST 27, ALT 30, Alkaline Phosphatase 45, Total Protein 6.8, Albumin 2.9 L, Globulin 3.9, Albumin/Globulin Ratio 0.7 L Current Medications Acetaminophen (Acetaminophen 325 Mg Tablet) 650 mg PO Q6H PRN PRN PRN Reason: Pain Score 1-10/Temp > 100.7 F Al Hydroxide/Mg Hydroxide (Mag Hydrox/Al Hydrox/Simeth 30 Ml Udc) 30 ml PO Q6H PRN PRN PRN Reason: Gastric Burning Albuterol Sulfate (Albuterol Sulfate 18 Gm Inhaler (200 Puffs)) 4 - 8 puff IH Q4H PRN PRN PRN Reason: Dyspnea, wheezing Atorvastatin Calcium (Atorvastatin Calcium 10 Mg Tablet) 5 mg PO DAILY@2200 [facility] Last Admin: 03/02/20 22:03 Dose: Not Given Documented by: Dexamethasone Sodium Phosphate (Dexamethasone 10 Mg/Ml Vial) 6 mg IV DAILY [facility] Enoxaparin Sodium (Enoxaparin 60 Mg/0.6 Ml Syringe) 30 mg SC BID [facility] Last Admin: 03/02/20 22:01 Dose: 30 mg Documented by: Famotidine (Famotidine 20 Mg Tablet) 20 mg PO BID [facility] Last Admin: 03/02/20 22:01 Dose: 20 mg Documented by: Guaifenesin (Guaifenesin 10 Ml Udc (200mg/10ml)) 20 ml PO Q4H PRN PRN PRN Reason: COUGH Hydralazine HCl (Hydralazine 20 Mg/Ml Vial) 10 mg IV Q4H PRN PRN PRN Reason: SBP > 160 Hydrochlorothiazide (Hydrochlorothiazide 6.25mg Tab) 6.25 mg PO DAILY [facility] Remdesivir 100 mg/ Sodium (Chloride) 250 mls @ 125 mls/hr IV DAILY@2200 [facility] Stop: 03/06/20 23:59 Sodium Chloride () 250 mls @ 15 mls/hr IV .[id number] PRN PRN Reason: Saline Flush Sodium Chloride () 250 mls @ 15 mls/hr IV .[id number] PRN PRN Reason: Additional IVPB Infusion Influenza Virus Vaccine Quadrival (Influenza Vaccine (6mos+)/Pf 0.5 Ml Syringe) 0.5 ml IM .ONCE ONE Stop: 03/03/20 10:01 Levothyroxine Sodium (Levothyroxine 50 Mcg Tablet) 50 mcg PO DAILY [facility] Lisinopril (Lisinopril 5 Mg Tablet) 5 mg PO DAILY [facility] Magnesium Hydroxide (Magnesium Hydroxide 30 Ml Udc) 30 ml PO DAILY PRN PRN PRN Reason: Constipation Melatonin (Melatonin 3 Mg Tablet) 3 mg PO QHS PRN PRN PRN Reason: INSOMNIA Miscellaneous Information (Inhaler, Assist Devices 1 Each Spacer) 1 each INHALATION PRN PRN PRN Reason: WITH ALBUTEROL MDI Nitroglycerin (Nitroglycerin (Inpatient Use) 0.4 Mg Tab.Subl) 0.4 mg SUBLINGUAL Q5M PRN PRN Reason: CARDIAC/CHEST PAIN Ondansetron HCl (Ondansetron 4 Mg/2 Ml Vial) 4 mg IV Q8H PRN PRN PRN Reason: NAUSEA/VOMITING Paroxetine HCl (Paroxetine 10 Mg Tablet) 30 mg PO DAILY [facility] Prochlorperazine Edisylate (Prochlorperazine 10 Mg/2 Ml Vial) 5 mg IV Q4H PRN PRN PRN Reason: Breakthrough nausea/vomiting Psyllium Hydrophilic Mucilloid (Psyllium 1 Packet) 1 packet PO DAILY PRN PRN PRN Reason: Constipation Senna/Docusate Sodium (Senna/Docusate Sodium 1 Tablet) 2 tablet PO BID PRN PRN PRN Reason: Constipation Sodium Chloride (0.9% Saline Lock 10 Ml Syringe) 10 - 40 ml IV UD PRN PRN Reason: SALINE FLUSH Throat Lozenges (Benzocaine/Menthol 1 Lozenge) 1 lozenge MUCOUS MEM Q2H PRN PRN PRN Reason: SORE THROAT STROKE Vital Signs/Narrative: Vital Signs Resp 03/03/20 03:40 18 Medical Necessity - Tobacco Use Smoking Status: Never smoker Tobacco Use: Non-smoker Assessment/Plan All Active Problems Hypoxia (Acute) COVID-19 (Acute) The patient is a 74 y/o M w/ PMHx: HTN, HLD, Hypothyroidism, Depression, Chronic back pain with spinal stenosis who presents to the [facility] ED on 03/02/20 with history of recent evaluation on 02/26/20 secondary to onset of fever, chills, nausea, emesis, malaise, myalgias, cough and dyspnea x 3 days with + COVID testing at that time with noted hypoxia with activity with discharge to home on decadron and 2L NC who now re-presents to the [facility] ED with ongoing symptoms, not improving and increased dyspnea. 1. Acute HypoxiC Respiratory Failure secondary to Acute Viral Syndrome, COVID- 19, Suspect developing COVID-19 Pneumonia: Recent ED evaluation with + COVID status, discharged on home oxygen given hypoxia with activity, returns with worsening symptoms. Admitted to the COVID unit, CTPA with no acute evidence of pulmonary emboli, shallow inspiration or elevation of the diaphragms with bibasilar atelectatic changes more consolidative feature to the left posterior costophrenic angle with dense bands of atelectasis in the superior segment of the left lower lobe with minimal scattered ground-glass changes. Will maintain on oxygen with wean as tolerated to room air, HOB, IS parameters w/ negative respiratory viral panel and negative urine antigens. Lactic acid 1.2, ferritin 632, LDH 272, troponin less than 0.015, D-dimer 0.74, CRP 39, pro calcitonin 0.13. Will continue supportive care including q 2 hour turning including prone given no prone bed availability and judicious hydration, closely monitor for worsening status for ARDS and multiorgan failure, pending evaluation per infectious disease, continued IV decadron for completion 10 day course, initiated remdesivir given status and presentation but defer to ID discretion. PT/OT/CM consulted for discharge planning given notable weakness, currently also of note living alone. 2. Hypertension: Continue home regimen including lisinopril, hy drochlorothiazide with hold parameters as needed, PRN hydralazine. 3. Hypothyroidism: Continue home synthroid regimen. 4. Anxiety and depression: We will continue patient home paroxetine regimen. 5. Hyperlipidemia: Continue home statin regimen. 6. DVT prophylaxis: SCDs, Lovenox. 7. CODE status: Patient HCPDANISHA is his wellness consultant Irwin Leahy and living will is currently in place. Full Code. Inpatient E&M: 29810 Subs Hosp L2
[2020-03-03] MEDS: dexAMETHasone 10 MG/ML Vial 6 MG IV (09:07)
[2020-03-03] MEDS: Enoxaparin 60 MG/0.6 ML Syringe 30 MG SC ×2 (09:07→21:05)
[2020-03-03] MEDS: PARoxetine 10 MG Tablet 30 MG PO (09:08)
[2020-03-03] MEDS: Levothyroxine 50 MCG Tablet PO (09:09)
[2020-03-03] MEDS: Lisinopril 5 MG Tablet PO (09:09)
[2020-03-03] MEDS: hydroCHLOROthiazide 6.25mg TAB 6.25 MG PO (09:09)
[2020-03-03] MEDS: Famotidine 20 MG Tablet PO ×2 (09:09→21:06)
[2020-03-03] MEDS: 0.9% Saline Lock 10 ML Syringe IV (09:30)
--- NOTE | 2020-03-03 22:04 | PCS.PANDOC ---
PANDEMIC DOCUMENTATION INITIATED: Date: 03/03/20 Time: 1904
[2020-03-04 02:49] VITALS: BP 123/80; PULSE 64; RESP 18; TEMP 36.6; O2SAT 94
[2020-03-04 10:11] VITALS: BP 139/68; PULSE 71; RESP 18; TEMP 36.6; O2SAT 93
[2020-03-04 10:15] VITALS: O2SAT 93
[2020-03-04] MEDS: dexAMETHasone 10 MG/ML Vial 6 MG IV (10:25)
[2020-03-04] MEDS: PARoxetine 10 MG Tablet 30 MG PO (10:27)
[2020-03-04] MEDS: Lisinopril 5 MG Tablet PO (10:27)
[2020-03-04] MEDS: Enoxaparin 60 MG/0.6 ML Syringe 30 MG SC (10:27)
[2020-03-04] MEDS: hydroCHLOROthiazide 6.25mg TAB 6.25 MG PO (10:27)
[2020-03-04] MEDS: Levothyroxine 50 MCG Tablet PO (10:29)
[2020-03-04] MEDS: Famotidine 20 MG Tablet PO (10:29)
[2020-03-04] MEDS: 0.9% Saline Lock 10 ML Syringe IV (10:29)
[2020-03-04 10:42] VITALS: O2SAT 88; O2SAT 91; O2SAT 92
--- NOTE | 2020-03-04 11:34 | CASEMGMT ---
RN CM Assessment Note COVID TESTIN02/26/[address] [facility] Introduced role of CM to patient. Demographics, PCP verified. Patient states he is independent, no care needs. Plan is to discharge home today. Home oxygen testing showed pt would need 1L NC and he does have home oxygen. Diagnosis: COVID-19 PCP: Dr. Rose Insurance: [facility] Preferred Pharmacy: [facility] Prescription Benefit: yes LNOK: Friend Jessa Arcos Living Arrangements: states he lives independently at home. No care needs. Tranportation: drives DME: Has home oxygen concentrator and portable tank. Patient said he will contact his friend Claus for a ride home and to bring his portable tank. HHC: No Patient DC Goals: Home today DC Plan: Home today Sohan HAGEN RN ACM
--- NOTE | 2020-03-04 12:03 | PCM.DC ---
- Discharge Diagnoses Current Active Problems: Current Active and Chronic Problems Hypertension (Chronic) Hyperlipidemia (Chronic) Hypothyroidism (Chronic) Depression (Chronic) Spinal stenosis (Chronic) Hypoxia (Acute) COVID-19 (Acute) You will use the following diet at home:: No restrictions Your food should be the consistency of: Regular Your liquids should be the consistency of: Regular/Thin Discharge Activity: Return to Normal Activity - ease back into routine slowly Call your doctor if you observe: Fever of 101 or Higher, Shortness of breath Additional Instructions: You no longer need to isolate. You have already completed 21 days of isolation. Wear oxygen 2 liters/minute with activity. No oxygen needed at rest. Allergies/Adverse Reactions: Allergies No Known Allergies Allergy (Verified 03/02/20 15:06) Medications to take at Discharge Levothyroxine Sodium [Synthroid] 50 mcg PO DAILY 10/11/18 Lisinopril/Hydrochlorothiazide [Lisinopril-Hctz 10-12.5 mg Tab] 5 - 6.25 mg PO DAILY 10/11/18 Paroxetine HCl 30 mg PO DAILY 10/11/18 Simvastatin 10 mg PO DAILY 10/11/18 Cholecalciferol (Vitamin D3) [Vitamin D3] 100 mcg PO DAILY 02/26/20 Dexamethasone [Decadron] 6 mg PO DAILY 7 Days #7 tab 02/26/20 Oxygen, Home [Home Oxygen] 2 lpm NASAL CONT #1 unit 02/26/20 Acetaminophen [Tylenol Tablet] 650 mg PO Q6H PRN PRN tablet 03/04/20 Guaifenesin/Codeine [Robitussin AC] 10 ml PO Q6H PRN PRN #250 ml 03/04/20 levoFLOXacin tablet [Levaquin tablet] 750 mg PO DAILY #6 tab 03/04/20 The following prescriptions were given: levoFLOXacin tablet [Levaquin tablet] 750 mg PO DAILY #6 tab Transmission Status: Pending to [facility] Guaifenesin/Codeine [Robitussin AC] 10 ml PO Q6H PRN PRN #250 ml PRN Reason: coughing fits Transmission Status: Pending to [facility] Primary Care Physician: Marci Rose DO [Primary Care Provider] - Within 1 Week Test Results: Test results from this visit will be discussed in further detail at your follow-up appointment, if applicable. Proposed Discharge Date: 03/04/20
--- NOTE | 2020-03-04 12:05 | PCM.DC.SUM ---
Discharge Date and Diagnosis - Problem List Patient Problems: Active and Suspected Problems Hypoxia (Acute) COVID-19 (Acute) Date of Admission: 03/02/20 Date of Discharge: 03/04/20 - Primary Discharge Diagnosis Acute Problems: Active Problems Hypoxia (Acute) COVID-19 (Acute) - Secondary Discharge Diagnosis Chronic Problems: Chronic Problems Hypertension (Chronic) Hyperlipidemia (Chronic) Hypothyroidism (Chronic) Depression (Chronic) Spinal stenosis (Chronic) Hospital Course and Treatment Imaging Results: Clinical Impression(s) from Imaging Studies Chest X-Ray 03/02/20 15:45 IMPRESSION: Continued shallow chest expansion with bilateral atelectatic changes. Negative for other infiltrates in the upper lung zones. Lung bases partially obscured by diaphragms. Electronically Signed: Ambar Dubon MD at 16:07 EST , Service support , Chest CTA 03/02/20 16:15 IMPRESSION: Negative for pulmonary embolus. Mild plaque and elongation of the thoracic aorta without aneurysm or dissection. Normal cardiac size without pericardial effusion. Shallow inspiration or elevation of the diaphragms with bibasilar atelectatic changes with more consolidative features in the left posterior costophrenic angle, potential pneumonia. Dense band of atelectasis in the superior segment left lower lobe. Otherwise minimal scattered groundglass changes. Negative for pleural effusion. No acute bone findings or acute findings in the uppermost abdomen. Electronically Signed: Ambar Dubon MD at 17:27 EST , Service support , Operations: None Procedures: None Summary of Care Provided: The patient is a 74 year old M who start feeling ill at the beginning of the month. He eventually was tested positive for COVID-19 on the . Patient was discharged with steroids at that time but only to return with shortness of breath. Patient had a CAT scan that showed no pulmonary embolism nor any the typical findings of COVID-19 though there was some small infiltrate in the left lower lobe. Discussed with the patient that he has essentially completed 21 days of isolation since his symptoms began that this is likely secondary pneumonia from his COVID-19 infection. Patient would receive antibiotics here and also continue upon discharge. Patient did receive several rounds of remdesivir. Patient was ambulated and dropped down to 88%. Patient will require 2 L of oxygen with activity but he is 92% at rest on room air. Patient already has oxygen arranged at home. Patient be discharged home in stable condition. [] Patient Problems: Active and Suspected Problems Hypoxia (Acute) COVID-19 (Acute) - Physical Exam Vitals/I&O's: Vital Signs Temp Pulse Resp BP Pulse Ox 36.6 C 71 18 139/68 H 91 03/04/20 10:11 03/04/20 10:11 03/04/20 10:11 03/04/20 10:11 03/04/20 10:42 Oxygen Flow Rate (L/min) [ 1 AMBULATION with Oxygen] Oxygen Flow Rate (L/min) 1 Oxygen Delivery Method Nasal Cannula Weight: 76.8 kg Body Mass Index (BMI) 23.0 Intake and Output for Last 24 Hours 03/02/20 03/03/20 03/04/20 23:59 23:59 23:59 Intake Total 260 / 260 1730 / 1730 350 / 350 Output Total 275 / 275 Balance -15 / -15 1730 / 1730 350 / 350 General: Alert, No apparent distress HEENT: Atraumatic, Normocephalic Oral: Moist Mucosa, No Gingival or Mucosal Lesions/ Ulcerations Neck: No Nodes, Thyroid Normal Size and Texture Lungs: Clear to auscultation, Normal air movement, No rhonchi, No wheeze, No rales Cardiovascular: Regular rate, Regular Rhythm, Normal S1, Normal S2, No murmurs Abdomen: Bowel Sounds Present, Soft, Non Tender, Non-Distended, No Hepato-splenomegaly Extremities: No edema, No Calf Tenderness Skin: No rashes, No breakdown Psych/Mental Status: Normal Affect, Appropriate Microbiology Past 72 Hours 03/02/20 22:20 Mucosa - Nasopharyngeal Respiratory Panel (PCR) - Final 03/02/20 22:15 Urine, Random Legionella Antigen - Final 03/02/20 22:15 Urine, Random Streptococcus pneumoniae Antigen (M - Final Current Medications Acetaminophen (Acetaminophen 325 Mg Tablet) 650 mg PO Q6H PRN PRN PRN Reason: Pain Score 1-10/Temp > 100.7 F Al Hydroxide/Mg Hydroxide (Mag Hydrox/Al Hydrox/Simeth 30 Ml Udc) 30 ml PO Q6H PRN PRN PRN Reason: Gastric Burning Albuterol Sulfate (Albuterol Sulfate 18 Gm Inhaler (200 Puffs)) 4 - 8 puff IH Q4H PRN PRN PRN Reason: Dyspnea, wheezing Atorvastatin Calcium (Atorvastatin Calcium 10 Mg Tablet) 5 mg PO DAILY@2200 [facility] Last Admin: 03/03/20 21:06 Dose: Not Given Documented by: Dexamethasone Sodium Phosphate (Dexamethasone 10 Mg/Ml Vial) 6 mg IV DAILY [facility] Last Admin: 03/04/20 10:25 Dose: 6 mg Documented by: Enoxaparin Sodium (Enoxaparin 60 Mg/0.6 Ml Syringe) 30 mg SC BID [facility] Last Admin: 03/04/20 10:27 Dose: 30 mg Documented by: Famotidine (Famotidine 20 Mg Tablet) 20 mg PO BID [facility] Last Admin: 03/04/20 10:29 Dose: 20 mg Documented by: Guaifenesin (Guaifenesin 10 Ml Udc (200mg/10ml)) 20 ml PO Q4H PRN PRN PRN Reason: COUGH Hydralazine HCl (Hydralazine 20 Mg/Ml Vial) 10 mg IV Q4H PRN PRN PRN Reason: SBP > 160 Hydrochlorothiazide (Hydrochlorothiazide 6.25mg Tab) 6.25 mg PO DAILY [facility] Last Admin: 03/04/20 10:27 Dose: 6.25 mg Documented by: Remdesivir 100 mg/ Sodium (Chloride) 250 mls @ 125 mls/hr IV DAILY@2200 [facility] Stop: 03/06/20 23:59 Last Infusion: 03/03/20 23:10 Dose: Infused Documented by: Sodium Chloride () 250 mls @ 15 mls/hr IV .[id number] PRN PRN Reason: Saline Flush Sodium Chloride () 250 mls @ 15 mls/hr IV .[id number] PRN PRN Reason: Additional IVPB Infusion Levofloxacin (Levofloxacin 750 Mg Tablet) 750 mg PO X1 ONE Stop: 03/04/20 11:58 Levothyroxine Sodium (Levothyroxine 50 Mcg Tablet) 50 mcg PO DAILY [facility] Last Admin: 03/04/20 10:29 Dose: 50 mcg Documented by: Lisinopril (Lisinopril 5 Mg Tablet) 5 mg PO DAILY [facility] Last Admin: 03/04/20 10:27 Dose: 5 mg Documented by: Magnesium Hydroxide (Magnesium Hydroxide 30 Ml Udc) 30 ml PO DAILY PRN PRN PRN Reason: Constipation Melatonin (Melatonin 3 Mg Tablet) 3 mg PO QHS PRN PRN PRN Reason: INSOMNIA Miscellaneous Information (Inhaler, Assist Devices 1 Each Spacer) 1 each INHALATION PRN PRN PRN Reason: WITH ALBUTEROL MDI Nitroglycerin (Nitroglycerin (Inpatient Use) 0.4 Mg Tab.Subl) 0.4 mg SUBLINGUAL Q5M PRN PRN Reason: CARDIAC/CHEST PAIN Ondansetron HCl (Ondansetron 4 Mg/2 Ml Vial) 4 mg IV Q8H PRN PRN PRN Reason: NAUSEA/VOMITING Paroxetine HCl (Paroxetine 10 Mg Tablet) 30 mg PO DAILY [facility] Last Admin: 03/04/20 10:27 Dose: 30 mg Documented by: Prochlorperazine Edisylate (Prochlorperazine 10 Mg/2 Ml Vial) 5 mg IV Q4H PRN PRN PRN Reason: Breakthrough nausea/vomiting Psyllium Hydrophilic Mucilloid (Psyllium 1 Packet) 1 packet PO DAILY PRN PRN PRN Reason: Constipation Senna/Docusate Sodium (Senna/Docusate Sodium 1 Tablet) 2 tablet PO BID PRN PRN PRN Reason: Constipation Sodium Chloride (0.9% Saline Lock 10 Ml Syringe) 10 - 40 ml IV UD PRN PRN Reason: SALINE FLUSH Last Admin: 03/04/20 10:29 Dose: 10 ml Documented by: Throat Lozenges (Benzocaine/Menthol 1 Lozenge) 1 lozenge MUCOUS MEM Q2H PRN PRN PRN Reason: SORE THROAT Discharge Diet: No Restrictions Discharge Activity: Return to Normal Activity - ease back into routine slowly Call your doctor if you observe: Fever of 101 or Higher, Shortness of breath Home Medications: Medications to take at Discharge Levothyroxine Sodium [Synthroid] 50 mcg PO DAILY 10/11/18 Lisinopril/Hydrochlorothiazide [Lisinopril-Hctz 10-12.5 mg Tab] 5 - 6.25 mg PO DAILY 10/11/18 Paroxetine HCl 30 mg PO DAILY 10/11/18 Simvastatin 10 mg PO DAILY 10/11/18 Cholecalciferol (Vitamin D3) [Vitamin D3] 100 mcg PO DAILY 02/26/20 Dexamethasone [Decadron] 6 mg PO DAILY 7 Days #7 tab 02/26/20 Oxygen, Home [Home Oxygen] 2 lpm NASAL CONT #1 unit 02/26/20 Acetaminophen [Tylenol Tablet] 650 mg PO Q6H PRN PRN tablet 03/04/20 Guaifenesin/Codeine [Robitussin AC] 10 ml PO Q6H PRN PRN #250 ml 03/04/20 levoFLOXacin tablet [Levaquin tablet] 750 mg PO DAILY #6 tab 03/04/20 Following Prescriptions Were Given to Patient: levoFLOXacin tablet [Levaquin tablet] 750 mg PO DAILY #6 tab Transmission Status: Pending to [facility] Guaifenesin/Codeine [Robitussin AC] 10 ml PO Q6H PRN PRN #250 ml PRN Reason: coughing fits Transmission Status: Pending to [facility] Primary Care Physician: Marci Rose DO [Primary Care Provider] - Within 1 Week Disposition: Home Minutes spent on discharge:: 35 Patient Condition:: Good Medical Necessity - Tobacco Use Smoking Status: Never smoker Tobacco Use: Non-smoker Meaningful Use Info Meaningful Use Diagnoses (Choose all that apply): None applicable Inpatient E&M: 35821 Disch Hosp
[2020-03-04] MEDS: levoFLOXacin 750 MG Tablet PO (12:52)
--- NOTE | 2020-03-05 15:52 | CASEMGMT ---
[facility] DC PHONE CALL DC DATE: 03/04/2020 DC DISPOSITION: Home DC DIAGNOSIS: SARS COVID 2 ATtempted call to phone. No answer and no messaging with name identifier. Sohan HAGEN RN ACM
== END 2020-03-04 14:05 | disposition home or self-care (01) | DRG 177 ==
LOC: ED 15:23 → MS2 17:17
PROVIDERS: Admitting Provider Family Medicine; Emergency Provider Emergency Medicine; PCP Internal Medicine
DX: U07.1 COVID-19 (principal); J96.01 Acute respiratory failure with hypoxia; J12.89 Other viral pneumonia; I10 Essential (primary) hypertension; E78.5 Hyperlipidemia, unspecified; Z79.899 Other long term (current) drug therapy; E03.9 Hypothyroidism, unspecified; F32.9 Major depressive disorder, single episode, unspecified; F41.9 Anxiety disorder, unspecified; Z99.81 Dependence on supplemental oxygen; Z23 Encounter for immunization
CPT/HCPCS: 36415; 71045; 71275; 80048; 80053; 80076; 82728; 83605; 83615; 83735; 83880; 84145; 84484; 85025; 85379; 86140; 87040; 87449; 87633; 93005; 97162; 97165; 99251; 99285; G0008; J7030; J7050; Q9967; 90686; A4216; G0463

== ENCOUNTER 2020-03-06 14:45 | Emergency (ER) | payer MEDICARE, OTHER, SELFPAY ==
[2020-03-02 19:51] VITALS: BMI 23.0
[2020-03-06 14:47] VITALS: BP 113/78; PULSE 62; RESP 18; TEMP 35.6; O2SAT 98; BMI 23.0
[2020-03-06 14:54] VITALS: BP 113/78; PULSE 63; RESP 18; TEMP 35.6; O2SAT 97
[2020-03-06 15:20] VITALS: O2SAT 95
--- NOTE | 2020-03-06 15:34 | ED.VIS.GEN ---
History of Present Illness Chief Complaint: General Illness Informant: Patient Narrative: 74-year-old male recent diagnosis of COVID-19 and hospitalist until 2 days ago. Tells me that his pulse ox was reading about 75% at home and he wanted to be evaluated. Arriving here in the emergency department he has been in the mid to high 90s on room air. He states he will go and replace his battery. He is already on dexamethasone and Levaquin. Patient states that he feels like he is improving each day. - Past Medical History (1) COVID-19 Status: Chronic (2) Depression Status: Chronic (3) Hyperlipidemia Status: Chronic (4) Hypertension Status: Chronic (5) Hypothyroidism Status: Chronic (6) Spinal stenosis Status: Chronic Past Medical History - Allergies and Home Meds Allergies/Adverse Reactions: Allergies No Known Allergies Allergy (Verified 03/02/20 15:06) Primary Care Physician: Marci Rose DO [Primary Care Provider] - Surgical History: no surgical history Smoking Status: Never smoker Drugs: None - Family History Maternal Family History: Reports: - - Patient denies any market maternal family history including heart disease, diabetes, cancer. Paternal Family History: Reports: Pulmonary Disease - Patient notes his father had underlying lung disease with significant heavy tobacco use. Review of Systems General: Reports: Malaise. Denies: Chills, Fever, Sweats Eyes: Denies: Visual changes - bilaterally, Diplopia ENT: Denies: Rhinorrhea, Sore throat Cardiovascular: Denies: Chest pain, Palpitations Respiratory: Reports: Dyspnea, Cough. Denies: Dyspnea on exertion Gastrointestinal: Denies: Abdominal pain, Nausea, Vomiting, Diarrhea, Melena, Hematochezia Genitourinary: Denies: Dysuria, Hematuria, Frequency Musculoskeletal: Denies: Back pain, Extremity Pain Skin: Denies: Rash, Wounds Neurological: Denies: Headache, Weakness, Numbness Physical Exam Vital Signs/Narrative: Vital Signs Temp Pulse Resp BP Pulse Ox 03/06/20 15:20 95 03/06/20 14:54 96.0 F L 63 18 113/78 97 03/06/20 14:47 96.0 F L 62 18 113/78 98 Inital Vital Signs reviewed: Yes General: Well nourished, Well developed, No Acute Distress Head: Normocephalic, Atraumatic Eyes: Perrl, EOMI ENT: Moist mucous membranes, No rhinorrhea Neck: Supple, Nontender Cardiovascular: Regular rate, Regular rhythm, No murmurs Respiratory: No distress, CTA bilaterally, Chest nontender Abdomen: Soft, Nontender, Nondistended, Normal bowel sounds Back: Nontender, Normal Inspection Extremities: Nontender, No edema Skin: Normal color, No rash Neurological: Alert, Oriented x3, Cranial nerves II-XII grossly intact, Normal Strength, Normal Sensation Psychological: Normal affect, Normal Mood Diagnostic/Tx/Re-eval - Medical Decision Making Patient states that he does not feel he needs anything. He just wanted to make sure he was doing okay. He is stating that each day he is feeling a little bit better. He is not requiring supplemental oxygen at this time. His lung sounds are clear. He is asking for discharge. I think it is reasonable. ED Disposition - Plan for ED Patient: Disposition: Home or Assisted Living Diagnosis: COVID-19 Instructions: Coronavirus Disease 2019 (COVID-19): Caring for Yourself or Others Referrals: Marci Rose, DO [Primary Care Provider] - As Needed
--- NOTE | 2020-03-06 15:38 | ED.RN ---
When I entered the room the patient stated he was going to leave that he didn't need to be here. He proceeded to share he had gotten a low pulse ox reading at home and was instructed to come to the ED. I verified the patient at 95% room air over 15-[address] Petersen. The physician evaluated the patient. The patient states he is fine and has no issues with leaving. He does not have a number for his ride and agreed to take a taxi.
== END 2020-03-06 16:14 | disposition home or self-care (01) ==
LOC: ED 15:41
PROVIDERS: Emergency Provider Emergency Medicine; PCP Internal Medicine
DX: U07.1 COVID-19 (principal); I10 Essential (primary) hypertension; E78.5 Hyperlipidemia, unspecified
CPT/HCPCS: 99282

== ENCOUNTER 2021-01-06 23:30 | Inpatient (IN) | payer MEDICARE, OTHER, SELFPAY ==
[2021-01-06 23:30] VITALS: BP 155/88; PULSE 124; RESP 16; TEMP 36.4; O2SAT 95; BMI 25.0
[2021-01-06 23:41] VITALS: O2SAT 92
--- NOTE | 2021-01-06 23:56 | RAD_ITS ---
STUDY: X-RAY CHEST REASON FOR EXAM: Male, 75 years old. dyspnea TECHNIQUE: Single AP portable view of the chest. COMPARISON: 03/02/2020. FINDINGS: The lungs are underexpanded with vascular crowding. There is mild left basilar atelectasis, otherwise clear lungs. There is no demonstrated pleural abnormality. Normal size heart. Normal mediastinum and bernardino. Normal visualized pulmonary arteries. Normal visualized aortic arch and descending thoracic aorta. Normal visualized thoracic spine. Normal visualized ribs, clavicles, and shoulders. There is no demonstrated abnormality of the visualized soft tissue structures of the upper abdomen. RAD/Chest 1 View (Portable) IMPRESSION: Underexpanded lungs with mild left basilar atelectasis. Otherwise no acute cardiopulmonary disease. Electronically Signed: Lyubov Fuller MD at 0:14 EDT , Service support ,
--- NOTE | 2021-01-06 23:57 | ED.VIS.DYS ---
HPI History of Present Illness Chief Complaint: Shortness of Breath Informant: patient Narrative Narrative: 75-year-old male presenting to the emergency department dyspnea. Patient states that yesterday he felt slightly ill. Today he notes increase of his cough. He notes that he feels short of breath especially when laying back. No reported fevers. Patient had Covid in the winter. He denies any leg swelling. No history of coronary artery disease CHF or pulmonary embolisms. He denies any chest pain. [facility] Medical History Arthritis HTN (hypertension) Hypothyroid Home Medications levothyroxine 50 mcg PO DAILY 10/11/18 [History Last Taken Unknown] lisinopril-hydrochlorothiazide 5 - 6.25 mg PO DAILY 10/11/18 [History Last Taken Unknown] paroxetine HCl 30 mg PO DAILY 10/11/18 [History Last Taken Unknown] simvastatin 10 mg PO DAILY 10/11/18 [History Last Taken Unknown] Oxygen, Home [Home Oxygen] 2 lpm NASAL CONT #1 unit 02/26/20 [Rx Last Taken Unknown] cholecalciferol (vitamin D3) 100 mcg PO DAILY 02/26/20 [History Last Taken Unknown] acetaminophen 650 mg PO Q6H PRN PRN tab 03/04/20 [Rx Last Taken Unknown] Allergy/AdvReac Type Severity Reaction Status Date / Time No Known Allergies Allergy Verified 03/02/20 15:06 Surgical History no surgical history Social History (Updated 01/06/21 @ 23:[address] Mauricio Petersen DO) Smoking Status: Never smoker substance use type: does not use ROS ROS ED Constitutional Constitutional ED: Denies chills or weight loss Eyes Eyes: Denies change in vision or diplopia ENT ENT ED: Denies ear pain, rhinorrhea or sore throat Cardiovascular Cardiovascular: Reports orthopnea and palpitations; Denies chest pain or racing heartbeat Respiratory/Chest Respiratory/Chest: Reports cough, dyspnea, dyspnea on exertion and orthopnea Gastrointestinal Gastrointestinal: Denies abdominal pain, diarrhea, nausea or vomiting Genitourinary Genitourinary ED: Denies dysuria, hematuria or urinary frequency Musculoskeletal Musculoskeletal: Denies arthralgias or myalgias Integumentary Denies abscess or rash Neurologic Neurologic: Denies headache(s) or weakness Psychiatric Psychiatric: Denies anxiety, depression, suicidal ideation or suicidal thoughts Endocrine Endocrinology: Denies polydipsia, polyphagia or polyuria Allergic/Immunologic Allergic/Immunologic ED: Denies mouth swelling, tongue swelling or urticaria EXAM Physical Exam Const Vital Signs: 01/06/21 23:30 01/06/21 23:41 01/07/21 00:20 Temperature 97.6 F L Temperature Source Temporal Pulse Rate 124 H 154 H Respiratory Rate 16 36 H Respiratory Effort Normal Respiratory Depth Shallow Respiratory Pattern Irregular Blood Pressure 155/88 H Blood Pressure Mean 110 Pulse Ox 95 91 Oxygen Delivery Method Room Air Room Air Room Air Positive well nourished and well developed General Appearance ED: well developed HEENT Reports normocephalic, head/scalp atraumatic, TM's clear and moist mucous membranes atraumatic Tympanic Membrane ED: Yes TM's clear Eyes PERRL and EOMs intact bilaterally Neck no lymphadenopathy, supple and no JVD Resp clear to auscultation bilaterally Resp Narrative: Patient has conversational dyspnea Cardio regular rate and no murmurs Rate: tachycardic GI normal to inspection, nondistended, normoactive bowel sounds and non-tender Palpation: soft Back/Spine no CVA tenderness and normal ROM Extremity normal to inspection General Extremety ED: Negative for edema General Extremity: Negative for edema Neuro oriented x3 and CN's II-XII intact bilaterally Sensorium / Orientation: alert Motor Exam: strength 5/5 throughout Psych mental status grossly normal Mood & Affect: Negative for depressed or tearful Skin no rashes or lesions noted and no wounds MDM MDM MDM Narrative Medical decision making narrative: With ambulation the patient's heart rate increases to 154 and his respiratory rate approaches 40. His oxygen saturation is about 90-91. Patient has a leukocytosis at 13.4. Creatinine 1.36 with a BUN of 31. D-dimer is normal at 0.34. Troponin and BNP are also within normal limits. My interpretation of the chest x-ray is no acute process. CT of the chest was obtained which demonstrates a left lower lobe pneumonia. Patient received DuoNeb as well as Rocephin and azithromycin. Because of the patient's tachycardia and tachypnea plan will be for admission Lab Data Attestation: I reviewed the patient's lab results. Labs: Laboratory Results - last 24 hr 01/07/21 01/07/21 01/07/21 00:15 00:15 00:15 WBC 13.4 H RBC 5.07 Hgb 14.4 Hct 44.7 MCV 88.2 MCH 28.4 MCHC 32.2 RDW Std Deviation 46.3 H RDW Coeff of Alan 14.3 Plt Count 168 MPV 10.9 Immature Gran % (Auto) 0.200 Neut % (Auto) 82.9 H Lymph % (Auto) 7.0 L [place] % (Auto) 8.9 Eos % (Auto) 0.7 Baso % (Auto) 0.3 Absolute Neuts (auto) 11.1 H Absolute Lymphs (auto) 0.93 Nucleated RBC % 0 D-Dimer Quant (PE/DVT) 0.34 Sodium 140 Potassium 4.1 Chloride 109 H Carbon Dioxide 27.0 Anion Gap 4 L BUN 31 H Creatinine 1.36 H Estim Creat Clear Calc 53.10 Est GFR (MDRD) Af Amer 66 Est GFR (MDRD) Non-Af 55 L BUN/Creatinine Ratio 22.8 H Glucose 110 H Calcium 9.9 Total Bilirubin 0.40 AST 18 ALT 26 Alkaline Phosphatase 75 Troponin I High Sens 7 B-Natriuretic Peptide Total Protein 7.5 Albumin 4.0 Globulin 3.5 Albumin/Globulin Ratio 1.1 01/07/21 00:15 WBC RBC Hgb Hct MCV MCH MCHC RDW Std Deviation RDW Coeff of Alan Plt Count MPV Immature Gran % (Auto) Neut % (Auto) Lymph % (Auto) [place] % (Auto) Eos % (Auto) Baso % (Auto) Absolute Neuts (auto) Absolute Lymphs (auto) Nucleated RBC % D-Dimer Quant (PE/DVT) Sodium Potassium Chloride Carbon Dioxide Anion Gap BUN Creatinine Estim Creat Clear Calc Est GFR (MDRD) Af Amer Est GFR (MDRD) Non-Af BUN/Creatinine Ratio Glucose Calcium Total Bilirubin AST ALT Alkaline Phosphatase Troponin I High Sens B-Natriuretic Peptide 11.5 Total Protein Albumin Globulin Albumin/Globulin Ratio Radiography Diagnostic Testing: Clinical Impression(s) from Imaging Studies Chest X-Ray 01/06/21 23:56 IMPRESSION: Underexpanded lungs with mild left basilar atelectasis. Otherwise no acute cardiopulmonary disease. Electronically Signed: Lyubov Fuller MD at 0:14 EDT , Service support , Chest CTA 01/07/21 00:47 IMPRESSION: Negative CTA chest examination, without a demonstrated pulmonary embolism or arterial dissection. Lingular and left lower lobe pneumonia. No pleural effusion. Electronically Signed: Lyubov Fuller MD at 2:03 EDT , Service support , EKG Initial EKG: Attestation: I personally reviewed and interpreted this EKG as follows: Comments: Sinus tachycardia with a ventricular rate of 112 bpm Discharge Plan Dx/Rx/DC Orders Clinical Impression: Pneumonia Disposition Disposition: Acute Care Hospital [facility]
[2021-01-07] VITALS (15 sets, daily range): BP systolic 99–132; BP diastolic 68–90; PULSE 84–154; RESP 16–36; TEMP 36.6–36.9; O2SAT 91–95; BMI 21.1
[2021-01-07 00:24] LABS: Absolute Lymphocyte Count 0.93 X10^3/uL (0.83-4.51); Absolute Neutrophil Count 11.1 X10^3/uL (2.0-7.7); Basophil# 0.04 X10^3/uL; Basophil% 0.3 % (0-1); Eosinophils% 0.7 % (0-5); Hematocrit 44.7 % (40-54); Hemoglobin 14.4 g/dL (13.0-16.5); Lymphocyte # 0.93 X10^3/ul (0.83-4.51); Mean Corp Hgb Conc 32.2 g/dL (32-36); Mean Corpuscular Hgb 28.4 pg (27.0-32.0); Mean Corpuscular Volume 88.2 fL (80-94); Mean Platelet Vol. 10.9 fl (6.2-12.0); Monocyte# 1.19 X10^3/uL; Monocyte% 8.9 % (0-10); NRBC Flagged by Analyzer 0 % (0-5); Neutrophil # 11.09 X10^3/uL (2.7-7.7); Neutrophil % 82.9 % (47-70); Platelet Count 168 K/mm3 (150-450); RBC Distribution Width CV 14.3 % (11.6-14.6); RBC Distribution Width SD 46.3 fl (35.1-43.9); Red Blood Count 5.07 M/mm3 (4.6-6.2); White Blood Count 13.4 K/mm3 (4.4-11.0)
--- NOTE | 2021-01-07 00:33 | EKG12_ITS ---
Test Reason : SOB Blood Pressure : / mmHG Vent. Rate : 112 BPM Atrial Rate : 112 BPM P-R Int : 144 ms QRS Dur : 090 ms QT Int : 312 ms P-R-T Axes : 043 -51 043 degrees QTc Int : 425 ms Sinus tachycardia Left anterior fascicular block Nonspecific ST and T wave abnormality Abnormal ECG Confirmed by GNENA SILVESTRE, SUGAR ([id number]), purchasing expeditor JON SALEH ([id number]) on 01/08/2021 8:46:38 AM Referred By: Confirmed By:SUGAR VAIL MD
[2021-01-07 00:36] LABS: D-Dimer Quantitative (DVT/PE) 0.34 FEU/ug/m (0.27-0.49)
[2021-01-07 00:42] LABS: ALB/GLOB Ratio 1.1 RATIO (0.9-2.4); AST(SGOT) 18 U/L (15-37); Alanine Aminotransfer ALT/SGPT 26 U/L (16-61); Alkaline Phosphatase 75 U/L (45-117); Anion Gap 4 (5-15); BUN 31 mg/dL (7-18); BUN/Creat Ratio 22.8 RATIO (10-20); Calcium,Total 9.9 mg/dL (8.5-10.1); Chloride 109 mmol/L (98-107); Creatinine, Serum 1.36 mg/dL (0.70-1.30); EST Glomerular Filtration Rate 55 mL/min (>60); Est Glom Filt Rate - Afr Amer 66 mL/min (>60); Globulin 3.5 g/dL (2.2-4.2); Glucose 110 mg/dL (74-106); Potassium 4.1 mmol/L (3.5-5.1); Protein, Total 7.5 g/dL (6.4-8.2); Sodium Level 140 mmol/L (136-145); Troponin-I HS 7 pg/mL (3.0-78.0)
[2021-01-07 00:47] LABS: BNP,B-Type NATRIURETIC PEPTIDE 11.5 pg/mL (0-100)
--- NOTE | 2021-01-07 00:47 | CT_ITS ---
STUDY: CTA CHEST REASON FOR EXAM: Male, 75 years old. dyspnea RADIATION DOSAGE (If Supplied By Facility): CTDIvol = ( 11.53 ) mGy, DLP = ( 441.60 ) mGycm TECHNIQUE: The examination was performed with the intravenous administration of IV 100mL Isovue-370. Post-processing of the angiographic images was performed, with multiplanar reformation and 3D reconstruction. Individualized dose optimization techniques were used for this CT. COMPARISON: None. FINDINGS: Normal enhancement of the main pulmonary artery and right and left pulmonary arteries. Normal enhancement of the bilateral peripheral pulmonary arteries. There is no demonstrated pulmonary embolism. There is minor atherosclerotic calcification of the aortic arch with tortuosity. There is no demonstrated aortic dissection. Normal cardiac size with mild coronary artery calcifications. Normal mediastinum. Normal hilar regions. Normal visualized trachea and bronchi. The lungs are underexpanded. There is focal consolidation within the lingular and left lower lobe concerning for multilobar pneumonia. Normal pleura. Normal chest wall structures. There are degenerative changes of thoracic spine. Normal visualized upper abdomen. CT/CTA Chest W/WO Contrast IMPRESSION: Negative CTA chest examination, without a demonstrated pulmonary embolism or arterial dissection. Lingular and left lower lobe pneumonia. No pleural effusion. Electronically Signed: Lyubov Fuller MD at 2:03 EDT , Service support ,
[2021-01-07] MEDS: Ceftriaxone 1 GM/50 ML BAG IV (02:24)
[2021-01-07] MEDS: Ipratropium/Albuterol Sulfate 3 ML AMPUL.NEB INHALATION (02:32)
[2021-01-07 03:35] LABS: Lactic Acid 0.9 mmol/L (0.4-1.9)
--- NOTE | 2021-01-07 04:22 | PCM.HP.STD ---
HPI - General General Date of Admission: 01/07/21 Date of Service: 01/07/21 Chief Complaint: shortness of breath HPI Narrative SIERRA GARCÍA, is a 75 M who presents with shortness of breath x 1 day. +Cough. Presented emergency room and had a CT of his chest that showed left lingular pneumonia. Patient was noted to be tachycardic as well. I did improve. Patient in the emergency room, received ceftriaxone, azithromycin. Patient was negative for COVID-19 in the emergency room. Patient did have COVID-19 back in February 2020. [facility] Medical History Arthritis HTN (hypertension) Hypothyroid Home Medications levothyroxine 50 mcg PO DAILY 10/11/18 [History Last Taken Unknown] lisinopril-hydrochlorothiazide 5 - 6.25 mg PO DAILY 10/11/18 [History Last Taken Unknown] paroxetine HCl 30 mg PO DAILY 10/11/18 [History Last Taken Unknown] simvastatin 10 mg PO DAILY 10/11/18 [History Last Taken Unknown] Oxygen, Home [Home Oxygen] 2 lpm NASAL CONT #1 unit 02/26/20 [Rx Last Taken Unknown] cholecalciferol (vitamin D3) 100 mcg PO DAILY 02/26/20 [History Last Taken Unknown] acetaminophen 650 mg PO Q6H PRN PRN tab 03/04/20 [Rx Last Taken Unknown] Allergy/AdvReac Type Severity Reaction Status Date / Time No Known Allergies Allergy Verified 03/02/20 15:06 Surgical History no surgical history Social History Smoking Status: Never smoker substance use type: does not use ROS ROS Narrative All review of systems were negative except as mentioned above in the history of present illness and the other review of systems. Vital Signs Vital Signs Vital Signs: 01/06/21 23:30 01/06/21 23:41 01/07/21 00:20 Temperature 36.4 C L Temperature Source Temporal Pulse Rate 124 H 154 H Respiratory Rate 16 36 H Respiratory Effort Normal Respiratory Depth Shallow Respiratory Pattern Irregular Blood Pressure 155/88 H Blood Pressure Mean 110 Pulse Ox 95 91 Oxygen Delivery Method Room Air Room Air Room Air 01/07/21 02:20 01/07/21 02:34 01/07/21 03:37 Temperature 36.6 C Temperature Source Temporal Pulse Rate 121 H 121 H 103 H Respiratory Rate 22 H 18 20 H Respiratory Effort Respiratory Depth Respiratory Pattern Blood Pressure 124/90 H 109/87 H Blood Pressure Mean 101 94 Pulse Ox 92 94 Oxygen Delivery Method Room Air Room Air Weight Weight: 83.915 kg Body Mass Index (BMI) 25.0 Physical Exam Const alert and no apparent distress General Appearance: cooperative HEENT normocephalic and head/scalp atraumatic Resp normal respiratory effort, no retractions, no use of accessory muscles and clear to auscultation bilaterally Resp Narrative: Diminished in left base Cardio regular rate, regular rhythm, S1 normal heart sound and S2 normal heart sound GI normal to inspection, nondistended, normoactive bowel sounds, soft to palpation, non-tender and non-distended Neuro oriented x3 Sensorium / Orientation: awake and alert Psych affect normal Results Lab / Micro Data Attestation: I reviewed the patient's lab results. Result Diagrams: 01/07/21 00:15 01/07/21 00:15 Labs: Laboratory Results - last 24 hr 01/07/21 00:15: WBC 13.4 H, RBC 5.07, Hgb 14.4, Hct 44.7, MCV 88.2, MCH 28.4, MCHC 32.2, RDW Std Deviation 46.3 H, RDW Coeff of Alan 14.3, Plt Count 168, MPV 10.9, Immature Gran % (Auto) 0.200, Neut % (Auto) 82.9 H, Lymph % (Auto) 7.0 L, [place] % (Auto) 8.9, Eos % (Auto) 0.7, Baso % (Auto) 0.3, Absolute Neuts (auto) 11.1 H, Absolute Lymphs (auto) 0.93, Nucleated RBC % 0 01/07/21 00:15: D-Dimer Quant (PE/DVT) 0.34 01/07/21 00:15: Sodium 140, Potassium 4.1, Chloride 109 H, Carbon Dioxide 27.0, Anion Gap 4 L, BUN 31 H, Creatinine 1.36 H, Estim Creat Clear Calc 53.10, Est GFR (MDRD) Af Amer 66, Est GFR (MDRD) Non-Af 55 L, BUN/Creatinine Ratio 22.8 H, Glucose 110 H, Calcium 9.9, Total Bilirubin 0.40, AST 18, ALT 26, Alkaline Phosphatase 75, Troponin I High Sens 7, Total Protein 7.5, Albumin 4.0, Globulin 3.5, Albumin/Globulin Ratio 1.1 01/07/21 00:15: B-Natriuretic Peptide 11.5 01/07/21 03:05: Lactic Acid 0.9 Micro: Microbiology 01/07/21 03:05 Nasal Secretion SARS-CoV-2 Antigen (Rapid) - Final EKG Initial EKG: Attestation: I personally reviewed and interpreted this EKG as follows: Prior EKG tracings: available for review EKG Rhythm Intrepretation: Sinus Tachycardia (With LVH. Unchanged from March 02, 2020.) Radiology Impression Chest X-Ray 01/06/21 23:56 IMPRESSION: Underexpanded lungs with mild left basilar atelectasis. Otherwise no acute cardiopulmonary disease. Electronically Signed: Lyubov Fuller MD at 0:14 EDT , Service support , Chest CTA 01/07/21 00:47 IMPRESSION: Negative CTA chest examination, without a demonstrated pulmonary embolism or arterial dissection. Lingular and left lower lobe pneumonia. No pleural effusion. Electronically Signed: Lyubov Fuller MD at 2:03 EDT , Service support , Assessment & Plan Assessment/Plan (1) Pneumonia, pneumococcal: QUALIFIERS: Laterality: left Lung location: lower lobe of lung Qualified Code(s): J13 - Pneumonia due to Streptococcus pneumoniae (2) Tachycardia: PLAN: 1. Presumed pneumococcal pneumonia Will check urinary antigens Streptococcus and Legionella and as well as sputum culture Continue with ceftriaxone and azithromycin Pulmonary toilet qSOFA score of 1, therefore sepsis not present 2. Sinus tachycardia Improved Monitor on the PCU for now Patient may be a little bit dehydrated so we will give some IV fluids hold for that will help. 3. VTE prophylaxis with enoxaparin. Charges/Coding Visit Charges Inpatient E&M: 25612 Init Hosp L3
[2021-01-07] MEDS: 0.9% Normal Saline 1,000 ML 150 ML IV (05:06)
[2021-01-07] MEDS: Levothyroxine 50 MCG Tablet PO (05:52)
[2021-01-07 06:10] LABS: Absolute Lymphocyte Count 0.64 X10^3/uL (0.83-4.51); Absolute Neutrophil Count 12.9 X10^3/uL (2.0-7.7); Basophil# 0.04 X10^3/uL; Basophil% 0.3 % (0-1); Eosinophil# 0.02 X10^3/uL; Eosinophils% 0.1 % (0-5); Hematocrit 42.4 % (40-54); Hemoglobin 13.8 g/dL (13.0-16.5); Lymphocyte # 0.64 X10^3/ul (0.83-4.51); Lymphocyte % 4.1 % (19-41); Mean Corp Hgb Conc 32.5 g/dL (32-36); Mean Corpuscular Hgb 28.7 pg (27.0-32.0); Mean Corpuscular Volume 88.1 fL (80-94); Mean Platelet Vol. 10.7 fl (6.2-12.0); Monocyte# 1.75 X10^3/uL; Monocyte% 11.3 % (0-10); NRBC Flagged by Analyzer 0 % (0-5); Neutrophil # 12.93 X10^3/uL (2.7-7.7); Neutrophil % 83.7 % (47-70); POSITIVE DIFFERENTIAL YES; Platelet Count 133 K/mm3 (150-450); RBC Distribution Width CV 14.5 % (11.6-14.6); Red Blood Count 4.81 M/mm3 (4.6-6.2); White Blood Count 15.5 K/mm3 (4.4-11.0)
[2021-01-07 06:19] LABS: Differential Indicated SCAN CRITERIA MET
[2021-01-07 06:44] LABS: AST(SGOT) 19 U/L (15-37); Alanine Aminotransfer ALT/SGPT 25 U/L (16-61); Albumin, Serum 3.3 g/dL (3.2-5.0); Alkaline Phosphatase 60 U/L (45-117); Anion Gap 8 (5-15); BUN 27 mg/dL (7-18); BUN/Creat Ratio 18.5 RATIO (10-20); Calcium,Total 9.4 mg/dL (8.5-10.1); Chloride 107 mmol/L (98-107); Creatinine, Serum 1.46 mg/dL (0.70-1.30); EST Glomerular Filtration Rate 50 mL/min (>60); Est Glom Filt Rate - Afr Amer 61 mL/min (>60); Estimated Creatinine Clearance 50.22 ml/min; Globulin 3.3 g/dL (2.2-4.2); Glucose 104 mg/dL (74-106); Potassium 4.1 mmol/L (3.5-5.1); Protein, Total 6.6 g/dL (6.4-8.2); Sodium Level 139 mmol/L (136-145)
[2021-01-07 06:49] LABS: Differential Comment SCANNED
--- NOTE | 2021-01-07 07:10 | PCS.PANDOC ---
PANDEMIC DOCUMENTATION INITIATED: Date: 10/21/2020 Time: 190
[2021-01-07] MEDS: guaiFENesin 1,200 MG Tablet 1200 MG PO ×2 (09:49→21:16)
[2021-01-07] MEDS: Cholecalciferol (VIT D3) 25 MCG TABLET (1,000 UNITS) 100 MCG PO (09:49)
[2021-01-07] MEDS: PARoxetine 10 MG Tablet 30 MG PO (09:49)
[2021-01-07] MEDS: hydroCHLOROthiazide 6.25mg TAB 6.25 MG PO (09:49)
[2021-01-07] MEDS: Lisinopril 5 MG Tablet PO (09:49)
[2021-01-07] MEDS: Enoxaparin 40 MG/0.4 ML Syringe SC (09:51)
--- NOTE | 2021-01-07 13:20 | CASEMGMT ---
LUCRECIA LAWSON Assessment: Face to face with pt for initial transition planning/care coordination assessment. LUCRECIA LAWSON introduced self and role at [facility], pt voices understanding and consents to assessment. Pt is currently on 2L nc in no distress. Pt is A/Ox4 and answers all questions appropriately. Care providers, pharmacy, and demographics verified/updated. Presentation: Pt c/o SOB and c/o cough since COVID last february Admitting dx: Pna PCP: Rose Specialists: CRISTAL Todd; rich Chan Preferred [facility]acy: [facility] Insurance: MCR A/B, [employer] Prescription Benefit: Yes Living Will/HPOA: Pt states has LW/HPOA and is aware that they are not on file at [facility]. Pt states that his real estate associate attorney, Irwin Leahy, is HPOA. LNOK: Claus Blair, friend; Jessa Torres, friend Living Arrangements: Pt lives alone in 1 story home and states no concerns at home. Pt is independent with ADL's. Transportation: Pt drives jeep or electric bike and states no transportation concerns. DME/HHC: Pt has a cane and rails and states no need for any further DME. Pt states no hx of HHC or SNF in the past. Pt states no concerns with going home at time of discharge. Pt is retired. Pt does not smoke cigarettes or drink ETOH. Pt voices no further concerns/needs. CM to follow for any discharge planning/needs. Advised pt to ask for CM if any further questions/concerns/needs arise, voices understanding. Pt Goal: Home Plan: [place] LUCRECIA LAWSON
[2021-01-07 13:51] LABS: Pathologist Review Reviewed
--- NOTE | 2021-01-07 15:15 | PCM.HOSP.N ---
Hospitalist Note Patient is admitted with shortness of breath for 2 to 3 days awaiting findings pneumonia and left lower pneumonia. CTA negative for PE. Patient has history of pneumonia about 3 years ago. On exam Lungs diminished on left lung base. Left basilar crepitation. Labs reviewed. Microbiology Past 72 Hours 01/07/21 07:35 Urine, Clean Catch Legionella Antigen - Final 01/07/21 07:35 Urine, Clean Catch Streptococcus pneumoniae Antigen (M - Final 01/07/21 03:05 Nasal Secretion SARS-CoV-2 Antigen (Rapid) - Final Laboratory Results 01/07/21 00:15: WBC 13.4 H, RBC 5.07, Hgb 14.4, Hct 44.7, MCV 88.2, MCH 28.4, MCHC 32.2, RDW Std Deviation 46.3 H, RDW Coeff of Alan 14.3, Plt Count 168, MPV 10.9, Immature Gran % (Auto) 0.200, Neut % (Auto) 82.9 H, Lymph % (Auto) 7.0 L, [place] % (Auto) 8.9, Eos % (Auto) 0.7, Baso % (Auto) 0.3, Absolute Neuts (auto) 11.1 H, Absolute Lymphs (auto) 0.93, Nucleated RBC % 0 01/07/21 00:15: D-Dimer Quant (PE/DVT) 0.34 01/07/21 00:15: Sodium 140, Potassium 4.1, Chloride 109 H, Carbon Dioxide 27.0, Anion Gap 4 L, BUN 31 H, Creatinine 1.36 H, Estim Creat Clear Calc 53.10, Est GFR (MDRD) Af Amer 66, Est GFR (MDRD) Non-Af 55 L, BUN/Creatinine Ratio 22.8 H, Glucose 110 H, Calcium 9.9, Total Bilirubin 0.40, AST 18, ALT 26, Alkaline Phosphatase 75, Troponin I High Sens 7, Total Protein 7.5, Albumin 4.0, Globulin 3.5, Albumin/Globulin Ratio 1.1 01/07/21 00:15: B-Natriuretic Peptide 11.5 01/07/21 03:05: Lactic Acid 0.9 01/07/21 06:02: WBC 15.5 H, RBC 4.81, Hgb 13.8, Hct 42.4, MCV 88.1, MCH 28.7, MCHC 32.5, RDW Std Deviation 47.0 H, RDW Coeff of Alan 14.5, Plt Count 133 L, MPV 10.7, Immature Gran % (Auto) 0.500, Neut % (Auto) 83.7 H, Lymph % (Auto) 4.1 L, [place] % (Auto) 11.3 H, Eos % (Auto) 0.1, Baso % (Auto) 0.3, Absolute Neuts (auto) 12.9 H, Absolute Lymphs (auto) 0.64 L, Nucleated RBC % 0, Differential Comment SCANNED, Diff Path Review Reviewed 01/07/21 06:02: Sodium 139, Potassium 4.1, Chloride 107, Carbon Dioxide 24.0, Anion Gap 8, BUN 27 H, Creatinine 1.46 H, Estim Creat Clear Calc 50.22, Est GFR (MDRD) Af Amer 61, Est GFR (MDRD) Non-Af 50 L, BUN/Creatinine Ratio 18.5, Glucose 104, Calcium 9.4, Total Bilirubin 0.40, AST 19, ALT 25, Alkaline Phosphatase 60, Total Protein 6.6, Albumin 3.3, Globulin 3.3, Albumin/Globulin Ratio 1.0 Clinical Impression(s) from Imaging Studies Chest X-Ray 01/06/21 23:56 IMPRESSION: Underexpanded lungs with mild left basilar atelectasis. Otherwise no acute cardiopulmonary disease. Electronically Signed: Lyubov Fuller MD at 0:14 EDT , Service support , Chest CTA 01/07/21 00:47 IMPRESSION: Negative CTA chest examination, without a demonstrated pulmonary embolism or arterial dissection. Lingular and left lower lobe pneumonia. No pleural effusion.
[2021-01-07] MEDS: Atorvastatin Calcium 10 MG Tablet 5 MG PO (21:16)
[2021-01-07] MEDS: 0.9% Saline Lock 10 ML Syringe IV (21:21)
[2021-01-08 03:07] VITALS: BP 141/87; PULSE 78; RESP 16; TEMP 37.2; O2SAT 95
[2021-01-08 03:11] VITALS: PULSE 81
[2021-01-08] MEDS: Levothyroxine 50 MCG Tablet PO (06:08)
[2021-01-08 07:00] VITALS: PULSE 78
[2021-01-08 09:07] VITALS: BP 142/92; PULSE 82; RESP 16; TEMP 36.8; O2SAT 93
[2021-01-08] MEDS: Enoxaparin 40 MG/0.4 ML Syringe SC (09:20)
[2021-01-08] MEDS: Lisinopril 5 MG Tablet PO (09:21)
[2021-01-08] MEDS: PARoxetine 10 MG Tablet 30 MG PO (09:21)
[2021-01-08] MEDS: guaiFENesin 1,200 MG Tablet 1200 MG PO (09:21)
[2021-01-08] MEDS: Cholecalciferol (VIT D3) 25 MCG TABLET (1,000 UNITS) 100 MCG PO (09:21)
[2021-01-08] MEDS: hydroCHLOROthiazide 6.25mg TAB 6.25 MG PO (09:21)
--- NOTE | 2021-01-08 10:00 | PCM.DC ---
Discharge Instructions Diet Discharge Diet: Low fat / Low cholesterol and 2000 mg Sodium Diet Activity Discharge Activity: Return to Normal Activity and May Not Drive (until sees PCP) Weight Bearing Status: Weight bearing as tolerated Dressing / Incision Call your doctor if you observe: Fever of 101 or Higher, Coldness, Increased Pain, Numbness or Tingling, Change in Color, Inability to urinate, Inability to have a bowel movement, Shortness of breath, Dizziness, Fainting spells, Swelling in the ankles, Chest pain, Prolonged hiccupping, Increased palpitations (irregular heartbeat), Calf discomfort and Uncontrolled pain Follow Up Care Test Results: Test results from this visit will be discussed in further detail at your follow-up appointment, if applicable. Discharge Plan Admission Admit Date/Time: 01/07/21 04:16 Primary Reason for Your Visit: LLL CAP Attending Provider: Sancho Lorenz Primary Care Provider: Marci Rose Discharge Orders/Prescriptions Prescriptions: New levofloxacin 500 mg tablet 500 mg PO DAILY Qty: 5 RF: 0 Mucinex 1,200 mg tablet extended release 12hr 1,200 mg PO BID Qty: 14 RF: 0 Continued simvastatin 10 MG tablet 10 mg PO DAILY RF: 0 levothyroxine 50 MCG tablet 50 mcg PO DAILY RF: 0 paroxetine HCl 30 MG tablet 30 mg PO DAILY RF: 0 lisinopril-hydrochlorothiazide 10-12.5 tablet 5 - 6.25 mg PO DAILY RF: 0 cholecalciferol (vitamin D3) 50 MCG capsule 100 mcg PO DAILY RF: 0 ibuprofen 100 mg Tablet 200 mg Q6H PRN PRN (Reason: Pain) RF: 0 Referrals / Follow Up: Marci Rose DO [Primary Care Provider] - Disposition Disposition (needs filled in before D/C Order can be placed): Home, Self Care
--- NOTE | 2021-01-08 12:00 | PCM.DC.SUM ---
Providers Date of Admission: 01/07/21 Primary Care Physician: Dr. Marci Rose, DO Reason For Visit: PNEUMONIA Diagnosis Discharge Diagnosis (1) Pneumonia, pneumococcal: Status: Acute Code(s): J13 - Pneumonia due to Streptococcus pneumoniae Qualifiers: Laterality: left Lung location: lower lobe of lung Qualified Code(s): J13 - Pneumonia due to Streptococcus pneumoniae (2) Tachycardia: Status: Acute Code(s): R00.0 - Tachycardia, unspecified Medications at Discharge Home Medications levothyroxine 50 mcg PO DAILY 10/11/18 lisinopril-hydrochlorothiazide 5 - 6.25 mg PO DAILY 10/11/18 paroxetine HCl 30 mg PO DAILY 10/11/18 simvastatin 10 mg PO DAILY 10/11/18 cholecalciferol (vitamin D3) 100 mcg PO DAILY 02/26/20 ibuprofen 200 mg Q6H PRN PRN 01/07/21 guaifenesin [Mucinex] 1,200 mg PO BID #14 tablet 01/08/21 levofloxacin 500 mg PO DAILY #5 tab 01/08/21 Hospital Course Summary of Care Provided Hospital Course: This is 75-year-old gentleman admitted for shortness of breath for 1 day along with cough. CT chest shows left lingular pneumonia and left lower lobe pneumonia. Patient is started on ceftriaxone and azithromycin in ED and further admitted. Rapid COVID-19 antigen negative. His further hospital course and as follows 1. Presumed pneumococcal pneumonia: Will check urinary antigens Streptococcus and Legionella and as well as sputum culture. Patient was treated with ceftriaxone and azithromycin and discharged on Levaquin to complete a total of 7 days of antibiotic. qSOFA score of 1, therefore sepsis not present 2. Sinus tachycardia most likely due to infection. Improved and resolved. 3. VTE prophylaxis with enoxaparin. Discharge medication reconciliation done. Discharge follow-up instructions completed. Discharge process discussed with the patient and all questions were answered to patient's satisfaction. Total time spent, exact 35 minutes on discharge meds reconciliation, examination, coordination of care with nurses and ancillary staff, review of imaging and blood test and discussion with the patient on follow-up instructions Physical Exam Narrative Patient is not short of breath. Minimal cough. No sputum production. No fever. Hemodynamically blood pressure is good. General: Alert, Oriented x3, Cooperative HEENT: Atraumatic, PERRLA, EOMI, Normocephalic Oral: No Gingival or Mucosal Lesions/ Ulcerations Neck: Supple, No JVD, Negative Carotid Bruits Lungs: Air entry diminished in left lung bases. No crepitation/rhonchi Cardiovascular: Regular rate, Regular Rhythm, Normal S1, Normal S2, No murmurs Abdomen: Bowel Sounds Present, Soft, Non Tender, Non-Distended : No renal angle tenderness. No suprapubic tenderness. Extremities: No edema, Capillary Refill Less than 3 Seconds Skin: No rashes, No breakdown Musculoskeletal: No Tenderness to Palpation of Joints or Extremities Neurological: Cranial nerves II-XII grossly intact, DTR 2+/4 and Symmetrical, Neuro grossly intact Psych/Mental Status: Normal Affect, Appropriate. Weight / BMI Weight Weight: 173 lb 11.588 oz Body Mass Index (BMI) 21.1 ABG / Lab / Microbiology Data Result Diagrams: 01/08/21 12:35 01/08/21 12:35 Laboratory: Laboratory Results - last 24 hr 01/07/21 06:02: Diff Path Review Reviewed Microbiology: Microbiology 01/07/21 07:35 Urine, Clean Catch Legionella Antigen - Final 01/07/21 07:35 Urine, Clean Catch Streptococcus pneumoniae Antigen (M - Final 01/07/21 03:05 Nasal Secretion SARS-CoV-2 Antigen (Rapid) - Final Meaningful Use Info Meaningful Use Diagnoses (Choose all that apply): None applicable Discharge Plan Admission Admit Date/Time: 01/07/21 04:16 Primary Reason for Your Visit: LLL CAP Attending Provider: Sancho Lorenz Primary Care Provider: Marci Rose Discharge Orders/Prescriptions Prescriptions: New levofloxacin 500 mg tablet 500 mg PO DAILY Qty: 5 RF: 0 Mucinex 1,200 mg tablet extended release 12hr 1,200 mg PO BID Qty: 14 RF: 0 Continued simvastatin 10 MG tablet 10 mg PO DAILY RF: 0 levothyroxine 50 MCG tablet 50 mcg PO DAILY RF: 0 paroxetine HCl 30 MG tablet 30 mg PO DAILY RF: 0 lisinopril-hydrochlorothiazide 10-12.5 tablet 5 - 6.25 mg PO DAILY RF: 0 cholecalciferol (vitamin D3) 50 MCG capsule 100 mcg PO DAILY RF: 0 ibuprofen 100 mg Tablet 200 mg Q6H PRN PRN (Reason: Pain) RF: 0 Referrals / Follow Up: Marci Rose DO [Primary Care Provider] - Disposition Disposition (needs filled in before D/C Order can be placed): Home, Self Care Charges/Coding Visit Charges Inpatient E&M: 07486 Disch Hosp
[2021-01-08 12:43] LABS: Absolute Lymphocyte Count 1.24 X10^3/uL (0.83-4.51); Absolute Neutrophil Count 8.7 X10^3/uL (2.0-7.7); Basophil# 0.04 X10^3/uL; Basophil% 0.4 % (0-1); Eosinophil# 0.19 X10^3/uL; Eosinophils% 1.7 % (0-5); Hematocrit 41.1 % (40-54); Hemoglobin 13.4 g/dL (13.0-16.5); Lymphocyte # 1.24 X10^3/ul (0.83-4.51); Lymphocyte % 11.2 % (19-41); Mean Corp Hgb Conc 32.6 g/dL (32-36); Mean Corpuscular Hgb 28.7 pg (27.0-32.0); Mean Platelet Vol. 10.8 fl (6.2-12.0); Monocyte# 0.92 X10^3/uL; Monocyte% 8.3 % (0-10); NRBC Flagged by Analyzer 0 % (0-5); Neutrophil # 8.66 X10^3/uL (2.7-7.7); Neutrophil % 78.1 % (47-70); Platelet Count 140 K/mm3 (150-450); RBC Distribution Width SD 48.5 fl (35.1-43.9); Red Blood Count 4.67 M/mm3 (4.6-6.2); White Blood Count 11.1 K/mm3 (4.4-11.0)
[2021-01-08 13:04] LABS: Anion Gap 6 (5-15); BUN 27 mg/dL (7-18); BUN/Creat Ratio 22.7 RATIO (10-20); Calcium,Total 9.7 mg/dL (8.5-10.1); Chloride 107 mmol/L (98-107); Creatinine, Serum 1.19 mg/dL (0.70-1.30); EST Glomerular Filtration Rate 64 mL/min (>60); Est Glom Filt Rate - Afr Amer 77 mL/min (>60); Estimated Creatinine Clearance 61.62 ml/min; Glucose 88 mg/dL (74-106); Potassium 4.1 mmol/L (3.5-5.1); Sodium Level 139 mmol/L (136-145)
[2021-01-08 13:35] VITALS: O2SAT 92; O2SAT 95
[2021-01-08 13:38] VITALS: BP 129/89; PULSE 81; RESP 16; TEMP 36.7; O2SAT 95
== END 2021-01-08 13:58 | disposition home or self-care (01) | DRG 195 ==
LOC: ED 01-07 02:15 → PCU 01-07 04:33
PROVIDERS: Emergency Provider Emergency Medicine; PCP Internal Medicine; Visit Provider Internal Medicine
DX: J13 Pneumonia due to Streptococcus pneumoniae (principal); E86.0 Dehydration; M19.90 Unspecified osteoarthritis, unspecified site; I10 Essential (primary) hypertension; E03.9 Hypothyroidism, unspecified; Z79.899 Other long term (current) drug therapy; Z23 Encounter for immunization
CPT/HCPCS: 36415; 71045; 71275; 80048; 80053; 83605; 83880; 84484; 85025; 85379; 87040; 87426; 87449; 93005; 94640; 99285; G0008; J7030; J7050; Q9967; 90686; A4216; J0696

== ENCOUNTER 2022-03-10 20:50 | Inpatient (IN) | payer MEDICARE, OTHER, SELFPAY ==
[2022-03-10 20:50] VITALS: BP 180/86; PULSE 129; RESP 24; TEMP 36.3; O2SAT 90; BMI 23.0
[2022-03-10 21:16] VITALS: PULSE 115; RESP 22; O2SAT 98
--- NOTE | 2022-03-10 21:21 | EKG12_ITS ---
Test Reason : SOB Blood Pressure : / mmHG Vent. Rate : 120 BPM Atrial Rate : 120 BPM P-R Int : 148 ms QRS Dur : 088 ms QT Int : 336 ms P-R-T Axes : 055 -51 040 degrees QTc Int : 474 ms Sinus tachycardia with Premature atrial complexes Left anterior fascicular block Poor R wave progression Abnormal ECG Confirmed by GENNA SILVESTRE, SUGAR ([id number]), school photograph editor JON SALEH ([id number]) on 03/12/2022 9:43:08 AM Referred By: Confirmed By:SUGAR VAIL MD
--- NOTE | 2022-03-10 21:27 | ED.VIS.DYS ---
HPI History of Present Illness Chief Complaint: Shortness of Breath Detail of Chief Complaint: Shortness of breath, congestion, nonproductive cough and dyspnea on exertio Informant: patient Onset/Context/Timing Onset: Yesterday Context: gradual Timing: Continuous and Waxes and wanes Quality: Positive for Dyspnea on exertion and Wheezing; Negative for Orthopnea or PND Current Severity: Mild Maximum Severity: Severe Worsened by: Exertion and Coughing; Not Worsened By Lying flat Relieved by: Nothing Associated Symptoms cough, rhinorrhea and sore throat; Negative for post nasal drip, ear pain, fever, subjective, chills, sweats, clear sputum, white sputum, yellow sputum or green sputum Chest Pain: Positive for None Narrative Narrative: Patient is a 76-year-old male with history of hypertension, hyperlipidemia, hypothyroidism and COVID-19 infection who states he has been vaccinated but did not receive most recent booster. He was vaccinated for the flu. He is unaware of any ill contacts. He denies fever, chills or night sweats. He denies headache, visual, ocular auditory symptoms. He does endorse congestion, sore throat and nonproductive cough. He is having difficulty walking across the room. He denies history of PE or DVT. He denies black or maroon-colored stool. He denies vomiting or diarrhea. He denies urologic symptoms. PE Risk Factors: Negative for Cancer, OCP + Smoking + > 35, Prior DVT or PE, Recent immobilization, Recent surgery or Recent travel Prior similar symptoms: No Recent Illness/Hospitalization: No PFSH PFSH Medical History Arthritis Back pain HTN (hypertension) Hypothyroid Pneumonia Pneumonia, pneumococcal Home Medications levothyroxine 50 mcg tablet 50 mcg PO DAILY thyroid 10/11/18 [History Last Taken Unknown] lisinopril 10 mg-hydrochlorothiazide 12.5 mg tablet 5 - 6.25 mg PO DAILY blood pressure 10/11/18 [History Last Taken Unknown] paroxetine HCl 30 mg tablet 30 mg PO DAILY mental health 10/11/18 [History Last Taken Unknown] simvastatin 10 mg tablet 10 mg PO DAILY cholesterol 10/11/18 [History Last Taken Unknown] Allergy/AdvReac Type Severity Reaction Status Date / Time No Known Allergies Allergy Verified 03/10/22 20:52 Family History Mother Leo's hereditary optic atrophy Aunt Leo's hereditary optic atrophy Uncle Leo's hereditary optic atrophy Social History (Updated 03/10/22 @ 21:[address] Mikey Vang MD) household members: none Smoking Status: Never smoker substance use type: does not use ROS ROS ED Constitutional Constitutional ED: Denies chills, fever(s), sweats or weight loss Eyes Eyes: Denies blurry vision, change in vision or diplopia ENT ENT ED: Reports rhinorrhea and sore throat; Denies ear pain Cardiovascular Cardiovascular: Denies chest pain, orthopnea, palpitations, paroxysmal nocturnal dyspnea or racing heartbeat Respiratory/Chest Respiratory/Chest: Reports cough, dyspnea and dyspnea on exertion; Denies orthopnea, paroxysmal nocturnal dyspnea or sputum Gastrointestinal Gastrointestinal: Denies abdominal pain, diarrhea, melena, nausea or vomiting Genitourinary Genitourinary ED: Denies dysuria or hematuria Musculoskeletal Musculoskeletal: Denies arthralgias, back pain, myalgias or neck pain Integumentary Denies Abrasions or rash Neurologic Neurologic: Reports weakness; Denies headache(s) or paresthesias Endocrine Endocrinology: Denies polydipsia or polyuria Hematologic/Lymphatic Hematologic/Lymphatic: Denies easy bleeding or easy bruising EXAM Physical Exam Const Vital Signs: 03/10/22 20:50 03/10/22 21:16 03/10/22 21:16 Temperature 97.4 F L Temperature Source Temporal Pulse Rate 129 H 115 H Respiratory Rate 24 H 22 H Respiratory Effort Short of Breath Respiratory Depth Shallow Respiratory Pattern Irregular Blood Pressure 180/86 H Blood Pressure Mean 117 Pulse Ox 90 98 Oxygen Delivery Method Room Air Nasal Cannula Nasal Cannula Oxygen Flow Rate (L/min) 2 2 03/10/22 21:42 03/10/22 21:42 03/10/22 21:42 Temperature Temperature Source Pulse Rate 115 H Respiratory Rate 28 H Respiratory Effort Labored Respiratory Depth Normal Respiratory Pattern Tachypnea Normal Blood Pressure Blood Pressure Mean Pulse Ox 93 93 Oxygen Delivery Method Nasal Cannula Nasal Cannula Oxygen Flow Rate (L/min) 2 2 03/10/22 22:24 Temperature Temperature Source Pulse Rate 118 H Respiratory Rate 28 H Respiratory Effort Respiratory Depth Respiratory Pattern Tachypnea Blood Pressure Blood Pressure Mean Pulse Ox Oxygen Delivery Method Oxygen Flow Rate (L/min) Positive well nourished and well developed Constitutional Narrative: Patient has conversational dyspnea. He is only able to say 3-5 words before having to take a deep breath. He appears pale. General Appearance ED: well developed and pallor HEENT Reports dry mucous membranes HEENT Narrative: Head is atraumatic normocephalic. Ears normal. Nares patent. Uvula midline. No deviation of protrusion. No the posterior pharynx. Mouth ED: Yes dry mucous membranes Mouth: dry mucous membranes Eyes PERRL and EOMs intact bilaterally General Eye ED: Negative for pale conjunctiva or scleral icterus Neck no lymphadenopathy, supple, no meningeal signs and no JVD Resp No normal respiratory effort Auscultation: wheezes expiratory wheezes and throughout (High-pitched with increased expiratory phase.) Cardio regular rhythm, S1 normal heart sound, S2 normal heart sound and no murmurs Cardio Narrative: There is an occasional ectopic beat noted on the monitor, PA C Rate: tachycardic GI non-tender, non-distended and no masses Auscultation: hypoactive bowel sounds Palpation: soft Extremity Extremity Narrative: Patient's lower extremities are pale. He does have pitting edema. There is no asymmetry, discoloration, leg vein distention, palpable is on the distribution of deep venous system. General Extremety ED: Yes edema General Extremity: edema Neuro oriented x3, CN's II-XII intact bilaterally and no sensory deficits noted [place] Coma Scale: document GCS findings Spontaneous Obeys Commands Oriented 15 Sensorium / Orientation: alert Psych mental status grossly normal Skin no wounds and skin turgor normal General Skin Exam: pallor; Negative for jaundice Lesions: no lesions Rashes: no rashes MDM MDM MDM Narrative Medical decision making narrative: 1MPatient has respiratory distress with wheezing. Suspect he has either a viral or bacterial infectious process. List. His dyspnea may be due to anemia since he is pale. CBC was obtained to assess H&H as well as white count differential. Basic metabolic panel was obtained to assess renal function CO2 anion gap. Chest x-ray to evaluate for pneumonia. Since he does have some upper respiratory symptoms rapid test for influenza and COVID were obtained. EKG was obtained to assess for cardiac ischemia. If his work-up is negative then 1 needs to consider pulmonary embolus. Patient was reassessed at 2238. He is still tachycardic and tachypneic. He still has conversational dyspnea. It has improved. There is bilateral wheezing. The wheezing is not as notable. Since he is still wheezing a fourth aerosol treatment was ordered and 125 mg of Solu-Medrol. He was informed of his laboratory results and chest x-ray results. He was informed that the COVID and influenza test are pending. COVID influenza were negative. Since there is no infiltrate patient was not treated with antibiotics. Lab Data Attestation: I reviewed the patient's lab results. Lab results narrative: CBC reveals slight elevation white count with shift. There is no bandemia. Comprehensive metabolic panel reveals slight elevation in BUN and creatinine. GFR is 57. Glucose is 109 with a normal CO2 and anion gap. There is no evidence of endorgan dysfunction. Labs: Laboratory Results - last 24 hr 03/10/22 03/10/22 21:37 21:37 WBC 12.1 H RBC 5.25 Hgb 15.0 Hct 46.1 MCV 87.8 MCH 28.6 MCHC 32.5 RDW Std Deviation 46.1 H RDW Coeff of Alan 14.3 Plt Count 170 MPV 10.2 Immature Gran % (Auto) 0.200 Neut % (Auto) 81.4 H Lymph % (Auto) 7.0 L Wood % (Auto) 9.7 Eos % (Auto) 1.2 Baso % (Auto) 0.5 Absolute Neuts (auto) 9.8 H Absolute Lymphs (auto) 0.84 Nucleated RBC % 0 Sodium 141 Potassium 4.2 Chloride 110 H Carbon Dioxide 24.0 Anion Gap 7 BUN 22 H Creatinine 1.30 Estim Creat Clear Calc 54.37 Est GFR (MDRD) Af Amer 69 Est GFR (MDRD) Non-Af 57 L BUN/Creatinine Ratio 16.9 Glucose 109 H Calcium 9.6 Total Bilirubin 0.40 AST 17 ALT 32 Alkaline Phosphatase 70 Total Protein 7.4 Albumin 3.8 Globulin 3.6 Albumin/Globulin Ratio 1.1 Radiography Chest X-Ray - ED: 2 View and Read by ED Physician (Independently reviewed and interpreted by me at 2216 as negative for any acute process. There is chronic pulmonary changes. Patient is rotated. Cardiac silhouette and size unremarkable. Osseous trucks unremarkable. Perihilar regions unremarkable.) Diagnostic Testing: Clinical Impression(s) from Imaging Studies Chest X-Ray 03/10/22 22:05 IMPRESSION: No radiographic evidence of acute cardiopulmonary disease. Electronically Signed: Lorenzo Berry MD at 22:32 EST , Rhythm Strip Rhythm Strip: Sinus Tach Rate: 122 Ectopy: PAC(s) EKG Initial EKG: Attestation: I personally reviewed and interpreted this EKG as follows: Interpretation: Sinus Tachycardia (Sinus tach with premature atrial complexes. Ventricular rate 120. KS interval 248 ms. QRS duration 88 ms. QT duration 336 ms. There is evidence of a left anterior fascicular block and axis to the left. There is no acute ischemic changes noted.) Discharge Plan Dx/Rx/DC Orders Clinical Impression: Acute respiratory failure with hypoxia, High blood pressure, Acute bronchospasm, Sinus tachycardia, Tachypnea Disposition Disposition: Acute Care Hospital [facility]
[2022-03-10] MEDS: Albuterol 2.5 MG/3 ML VIAL.NEB. INHALATION ×3 (21:40→22:23)
[2022-03-10 21:42] VITALS: PULSE 115; RESP 28; O2SAT 93
[2022-03-10 21:43] LABS: Absolute Lymphocyte Count 0.84 X10^3/uL (0.83-4.51); Absolute Neutrophil Count 9.8 X10^3/uL (2.0-7.7); Basophil# 0.06 X10^3/uL; Basophil% 0.5 % (0-1); Eosinophil# 0.15 X10^3/uL; Eosinophils% 1.2 % (0-5); Hematocrit 46.1 % (40-54); Lymphocyte # 0.84 X10^3/ul (0.83-4.51); Mean Corp Hgb Conc 32.5 g/dL (32-36); Mean Corpuscular Hgb 28.6 pg (27.0-32.0); Mean Corpuscular Volume 87.8 fL (80-94); Mean Platelet Vol. 10.2 fl (6.2-12.0); Monocyte# 1.17 X10^3/uL; Monocyte% 9.7 % (0-10); NRBC Flagged by Analyzer 0 % (0-5); Neutrophil # 9.81 X10^3/uL (2.7-7.7); Neutrophil % 81.4 % (47-70); Platelet Count 170 K/mm3 (150-450); RBC Distribution Width CV 14.3 % (11.6-14.6); RBC Distribution Width SD 46.1 fl (35.1-43.9); Red Blood Count 5.25 M/mm3 (4.6-6.2); White Blood Count 12.1 K/mm3 (4.4-11.0)
[2022-03-10 22:01] LABS: ALB/GLOB Ratio 1.1 RATIO (0.9-2.4); AST(SGOT) 17 U/L (15-37); Alanine Aminotransfer ALT/SGPT 32 U/L (16-61); Albumin, Serum 3.8 g/dL (3.2-5.0); Alkaline Phosphatase 70 U/L (45-117); Anion Gap 7 (5-15); BUN 22 mg/dL (7-18); BUN/Creat Ratio 16.9 RATIO (10-20); Calcium,Total 9.6 mg/dL (8.5-10.1); Chloride 110 mmol/L (98-107); EST Glomerular Filtration Rate 57 mL/min (>60); Est Glom Filt Rate - Afr Amer 69 mL/min (>60); Estimated Creatinine Clearance 54.37 ml/min; Globulin 3.6 g/dL (2.2-4.2); Glucose 109 mg/dL (74-106); Potassium 4.2 mmol/L (3.5-5.1); Protein, Total 7.4 g/dL (6.4-8.2); Sodium Level 141 mmol/L (136-145)
--- NOTE | 2022-03-10 22:05 | RAD_ITS ---
EXAM: XR CHEST, 2 VIEWS CLINICAL INDICATION: Cough, hypoxia, tachypnea TECHNIQUE: Frontal and lateral views of the chest. This report was created using [employer] report generation technology. COMPARISON: 02/06/2021 FINDINGS: LUNGS AND PLEURAL SPACES: Unremarkable. No consolidation or edema. No pneumothorax. No effusion. HEART: Unremarkable. Cardiac silhouette not enlarged. MEDIASTINUM: Central airways and mediastinal contour are unremarkable. BONES/JOINTS: Unremarkable. SOFT TISSUES: Unremarkable. RAD/Chest PA and Lateral IMPRESSION: No radiographic evidence of acute cardiopulmonary disease. Electronically Signed: Lorenzo Berry MD at 22:32 EST ,
[2022-03-10 22:24] VITALS: PULSE 118; RESP 28
--- NOTE | 2022-03-10 22:54 | PCM.HP.STD ---
HPI - General General Date of Admission: 03/10/22 Date of Service: 03/10/22 Chief Complaint: Shortness of breath HPI Narrative SIERRA GARCÍA, is a 76 M with a significant history of hypertension; depression/anxiety who presents to the emergency department with 4 to 5 days history of progressively worsening shortness of breath. Patient has baseline nasal congestion that is worsening. He reports fatigue. He reports a dry cough. Of note patient reported that many years ago he had allergies that he thought was from a cat and was receiving shots. In November 2021 he was vaccinated against influenza and pneumonia. Reportedly he received a COVID-19 vaccination but missed 1 booster. [facility] Medical History Arthritis Back pain HTN (hypertension) Hypothyroid Pneumonia Pneumonia, pneumococcal Home Medications levothyroxine 50 mcg tablet 50 mcg PO DAILY thyroid 10/11/18 [History Last Taken Unknown] lisinopril 10 mg-hydrochlorothiazide 12.5 mg tablet 5 - 6.25 mg PO DAILY blood pressure 10/11/18 [History Last Taken Unknown] paroxetine HCl 30 mg tablet 30 mg PO DAILY mental health 10/11/18 [History Last Taken Unknown] simvastatin 10 mg tablet 10 mg PO DAILY cholesterol 10/11/18 [History Last Taken Unknown] Allergy/AdvReac Type Severity Reaction Status Date / Time No Known Allergies Allergy Verified 03/10/22 20:52 Family History Mother Leo's hereditary optic atrophy Aunt Leo's hereditary optic atrophy Uncle Leo's hereditary optic atrophy Surgical History no surgical history no surgical history Social History household members: none Smoking Status: Former smoker substance use type: does not use ROS ROS Narrative Pertinent positives and pertinent negatives as noted in HPI. All other systems were reviewed and are negative Vital Signs Vital Signs Vital Signs: 03/10/22 20:50 03/10/22 21:16 03/10/22 21:16 Temperature 97.4 F L Temperature Source Temporal Pulse Rate 129 H 115 H Respiratory Rate 24 H 22 H Respiratory Effort Short of Breath Respiratory Depth Shallow Respiratory Pattern Irregular Blood Pressure 180/86 H Blood Pressure Mean 117 Pulse Ox 90 98 Oxygen Delivery Method Room Air Nasal Cannula Nasal Cannula Oxygen Flow Rate (L/min) 2 2 03/10/22 21:42 03/10/22 21:42 03/10/22 21:42 Temperature Temperature Source Pulse Rate 115 H Respiratory Rate 28 H Respiratory Effort Labored Respiratory Depth Normal Respiratory Pattern Tachypnea Normal Blood Pressure Blood Pressure Mean Pulse Ox 93 93 Oxygen Delivery Method Nasal Cannula Nasal Cannula Oxygen Flow Rate (L/min) 2 2 03/10/22 22:24 Temperature Temperature Source Pulse Rate 118 H Respiratory Rate 28 H Respiratory Effort Respiratory Depth Respiratory Pattern Tachypnea Blood Pressure Blood Pressure Mean Pulse Ox Oxygen Delivery Method Oxygen Flow Rate (L/min) Weight Weight: 77.111 kg Body Mass Index (BMI) 23.0 Physical Exam Narrative Physical exam: General: Well-nourished, well-developed. Head: Normocephalic, atraumatic, no tenderness Eyes: Vision is grossly intact. EOMI ENT, no trauma, moist mucous membranes, no rhinorrhea Neck: Nontender, No thyromegaly. CVS: Tachycardia. S1-S2 present. No murmur, gallop or rub. Respiratory : Tachypnea; conversational dyspnea, diminished. Chest wall nontender. Abdomen: Soft, nontender, nondistended, normal bowel sounds, no masses : Deferred Back: Nontender, no CVA tenderness, no midline spinal tenderness, deformities, step-offs Extremities: Nontender full range of motion, no trauma Skin: Normal color, no trauma, abrasions Neuro: Alert, oriented, cranial nerves II through XII grossly intact. Psychiatry: Normal mood. Normal affect. Not depressed. Not anxious. Results Lab / Micro Data Result Diagrams: 03/10/22 21:37 03/10/22 21:37 Labs: Laboratory Results - last 24 hr 03/10/22 21:37: WBC 12.1 H, RBC 5.25, Hgb 15.0, Hct 46.1, MCV 87.8, MCH 28.6, MCHC 32.5, RDW Std Deviation 46.1 H, RDW Coeff of Alan 14.3, Plt Count 170, MPV 10.2, Immature Gran % (Auto) 0.200, Neut % (Auto) 81.4 H, Lymph % (Auto) 7.0 L, Weber % (Auto) 9.7, Eos % (Auto) 1.2, Baso % (Auto) 0.5, Absolute Neuts (auto) 9.8 H, Absolute Lymphs (auto) 0.84, Nucleated RBC % 0 03/10/22 21:37: Sodium 141, Potassium 4.2, Chloride 110 H, Carbon Dioxide 24.0, Anion Gap 7, BUN 22 H, Creatinine 1.30, Estim Creat Clear Calc 54.37, Est GFR (MDRD) Af Amer 69, Est GFR (MDRD) Non-Af 57 L, BUN/Creatinine Ratio 16.9, Glucose 109 H, Calcium 9.6, Total Bilirubin 0.40, AST 17, ALT 32, Alkaline Phosphatase 70, Total Protein 7.4, Albumin 3.8, Globulin 3.6, Albumin/Globulin Ratio 1.1 Micro: Microbiology 03/10/22 21:37 Nasal Secretion SARS-CoV-2 & FLU Antigen (Rapid) - Final Rhythm Strip Rhythm Strip: Sinus Tach Rate: 122 Ectopy: PAC(s) Radiology Impression Chest X-Ray 03/10/22 22:05 IMPRESSION: No radiographic evidence of acute cardiopulmonary disease. Electronically Signed: Lorenzo Berry MD at 22:32 EST , Assessment & Plan Assessment/Plan (1) Hypoxia: (2) Bronchitis: PLAN: Plan Acute bronchitis with hypoxia On presentation while hospitalized was in patient's room; at room air patient oxygen saturation was between 88 to 89%. With reduced impression of chest x-ray: No radiographic evidence of acute cardiopulmonary disease. CXR independently reviewed confirms no acute cardiopulmonary process. With tachycardia in the 130s only ipratropium breathing treatment ordered. Solu-Medrol Continue oxygen supplement patient still emergency department. Titrate. CBC with white count of 12,100 with neutrophilia and lymphopenia. Trend CBC. Rapid COVID and influenza negative. Comprehensive respiratory pathogen panel ordered. CKD stage IIIa Stable Trend BMP. Hypertension Blood pressure is not within goal Home blood pressure medication to be continued. Trend blood pressure and adjust blood pressure medications. DVT prophylaxis Subcutaneous Lovenox ordered. Charges/Coding Visit Charges Inpatient E&M: 37438 Init Hosp L2
[2022-03-10 22:59] VITALS: PULSE 120; RESP 28
[2022-03-10 23:11] VITALS: BP 147/85; PULSE 123; PULSE 134; RESP 20; TEMP 36.9; O2SAT 91
[2022-03-10] MEDS: MethylPREDNISolone 125 MG/2 ML Vial IV (23:17)
[2022-03-11] VITALS (16 sets, daily range): BP systolic 124–152; BP diastolic 83–99; PULSE 70–120; RESP 16–24; TEMP 36.2–37.2; O2SAT 90–95; BMI 24.0
--- NOTE | 2022-03-11 00:32 | NURSING ---
Placed o2 on at 2l per nasal canula since pt was 90% on room air
[2022-03-11] MEDS: Fluticasone 0.05% 1 SPRAY NASAL.SRY NASAL ×3 (03:59→21:14)
[2022-03-11] MEDS: 0.9% Saline Lock 10 ML Syringe IV ×3 (06:38→21:15)
[2022-03-11 06:57] LABS: Absolute Neutrophil Count 8.8 X10^3/uL (2.0-7.7); Basophil# 0.02 X10^3/uL; Basophil% 0.2 % (0-1); Hematocrit 43.7 % (40-54); Lymphocyte % 5.3 % (19-41); Mean Corpuscular Hgb 28.3 pg (27.0-32.0); Mean Corpuscular Volume 88.5 fL (80-94); Mean Platelet Vol. 10.7 fl (6.2-12.0); Monocyte# 0.07 X10^3/uL; Monocyte% 0.7 % (0-10); NRBC Flagged by Analyzer 0 % (0-5); Neutrophil # 8.75 X10^3/uL (2.7-7.7); Neutrophil % 93.4 % (47-70); POSITIVE DIFFERENTIAL YES; Platelet Count 155 K/mm3 (150-450); RBC Distribution Width CV 14.4 % (11.6-14.6); RBC Distribution Width SD 45.9 fl (35.1-43.9); Red Blood Count 4.94 M/mm3 (4.6-6.2); White Blood Count 9.4 K/mm3 (4.4-11.0)
[2022-03-11 07:00] LABS: Differential Indicated SCAN CRITERIA MET
[2022-03-11] MEDS: Ipratropium 0.5 MG/2.5 ML SOLUTION INHALATION ×5 (07:01→23:20)
[2022-03-11 07:09] LABS: Differential Comment SCANNED
[2022-03-11 07:24] LABS: Anion Gap 8 (5-15); BUN 21 mg/dL (7-18); BUN/Creat Ratio 15.2 RATIO (10-20); Calcium,Total 9.6 mg/dL (8.5-10.1); Chloride 108 mmol/L (98-107); Creatinine, Serum 1.38 mg/dL (0.70-1.30); EST Glomerular Filtration Rate 53 mL/min (>60); Est Glom Filt Rate - Afr Amer 65 mL/min (>60); Estimated Creatinine Clearance 51.55 ml/min; Glucose 191 mg/dL (74-106); Potassium 4.3 mmol/L (3.5-5.1); Sodium Level 140 mmol/L (136-145)
[2022-03-11] MEDS: Enoxaparin 40 MG/0.4 ML Syringe SC (09:47)
--- NOTE | 2022-03-11 10:40 | CASEMGMT ---
RN RENNY Face to Face with patient for initial transition planning/care coordination assessment. RN CM introduced self and role at [facility]. Patient lying in bed, alert and oriented. Patient willing to participate in assessment and is able to answer all questions appropriately. Care providers, pharmacy, and demographics verified. Patient wishes to discharge home, denies need for home health at this time. Patient states he has no further needs or concerns at this time. CM to follow for discharge planning needs that may arise. 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 Patient is independent and able to ambulate stairs. Transportation: self, friend DME/HHC: Patient states he has walker, wheelchair, and shower chair at home. No previous HHC or SNF. Will monitor for home oxygen. DME agencies reviewd and patient prefers [employer]. Disposition Plan: Patient to discharge home with family support and follow-up plans in place. Tracey HAGEN, RN, CM
--- NOTE | 2022-03-11 13:00 | CHAPLAIN ---
Type of Pastoral Visit _x__ Initial Visit ___ Follow-up Visit ___ On-call Visit ___ General Patient Visit ___ Spiritual Assessment ___ Family Conference ___ Bereavement ___ Rapid Response ___ Code Blue ___ Other (describe below) Pastoral Care Referral From _x__ Patient ___ Family ___ Nurse ___ Physician ___ Marble Machine Operator ___ Labor Contract Analyst ___ Other (describe below) Sacrament/Intervention _x__ Active listening ___ Anointing ___ Advent ___ Bereavement ___ Communion _x__ Batsheva exploration ___ _x__ Life review ___ Prayer ___ Reconciliation ___ Sacrament of Sick ___ Supportive presence ___ Wedding ___ Other (describe below) Pastoral Comments patient declares that he is doing better physically; pt gives some life review and then goes into a lengthy talk about his taoism views and his personal batsheva; pt does apologize later for speaking his mind about jewish; pt otherwise states that he is fine and just enjoyed the company
--- NOTE | 2022-03-11 13:03 | PN.HOSP_ITS ---
Subjective Subjective Follow up on hypoxia/acute COPD exacerbation: Patient was seen and examined. He remains on 2 L of oxygen. He also remains tachycardic Objective Data Objective Data Vital Signs: Vital Signs Temp Pulse Resp BP Pulse Ox O2 Del Method O2 Flow Rate 97.2 F L 120 H 20 H 125/83 H 94 Nasal Cannula 2 03/11/22 09:46 03/11/22 11:04 03/11/22 11:04 03/11/22 09:46 03/11/22 09:46 03/11/22 09:46 03/11/22 08:00 Oxygen Flow Rate (L/min) 2 Oxygen Delivery Method Nasal Cannula Weight: 80.4 kg Body Mass Index (BMI) 24.0 Intake & Output: Intake and Output for Last 24 Hours 03/09/22 03/10/22 03/11/22 23:59 23:59 23:59 Intake Total 600 / 600 Balance 600 / 600 Lab / Micro Data Result Diagrams: 03/11/22 06:40 03/11/22 06:40 Labs: Laboratory Results - last 24 hr 03/10/22 21:37: WBC 12.1 H, RBC 5.25, Hgb 15.0, Hct 46.1, MCV 87.8, MCH 28.6, MCHC 32.5, RDW Std Deviation 46.1 H, RDW Coeff of Alan 14.3, Plt Count 170, MPV 10.2, Immature Gran % (Auto) 0.200, Neut % (Auto) 81.4 H, Lymph % (Auto) 7.0 L, Kaufman % (Auto) 9.7, Eos % (Auto) 1.2, Baso % (Auto) 0.5, Absolute Neuts (auto) 9.8 H, Absolute Lymphs (auto) 0.84, Nucleated RBC % 0 03/10/22 21:37: Sodium 141, Potassium 4.2, Chloride 110 H, Carbon Dioxide 24.0, Anion Gap 7, BUN 22 H, Creatinine 1.30, Estim Creat Clear Calc 54.37, Est GFR (MDRD) Af Amer 69, Est GFR (MDRD) Non-Af 57 L, BUN/Creatinine Ratio 16.9, Glucose 109 H, Calcium 9.6, Total Bilirubin 0.40, AST 17, ALT 32, Alkaline Phosphatase 70, Total Protein 7.4, Albumin 3.8, Globulin 3.6, Albumin/Globulin Ratio 1.1 03/11/22 06:40: WBC 9.4, RBC 4.94, Hgb 14.0, Hct 43.7, MCV 88.5, MCH 28.3, MCHC 32.0, RDW Std Deviation 45.9 H, RDW Coeff of Alan 14.4, Plt Count 155, MPV 10.7, Immature Gran % (Auto) 0.400, Neut % (Auto) 93.4 H, Lymph % (Auto) 5.3 L, Kaufman % (Auto) 0.7, Eos % (Auto) 0.0, Baso % (Auto) 0.2, Absolute Neuts (auto) 8.8 H, Absolute Lymphs (auto) 0.50 L, Nucleated RBC % 0, Differential Comment SCANNED 03/11/22 06:40: Sodium 140, Potassium 4.3, Chloride 108 H, Carbon Dioxide 24.0, Anion Gap 8, BUN 21 H, Creatinine 1.38 H, Estim Creat Clear Calc 51.55, Est GFR (MDRD) Af Amer 65, Est GFR (MDRD) Non-Af 53 L, BUN/Creatinine Ratio 15.2, Glucose 191 H, Calcium 9.6 Micro: Microbiology 03/10/22 23:25 Mucosa - Nose Respiratory Panel (PCR) - Final Rhinovirus 03/10/22 21:37 Nasal Secretion SARS-CoV-2 & FLU Antigen (Rapid) - Final Radiography Diagnostic Testing: Radiology Impression Chest X-Ray 03/10/22 22:05 IMPRESSION: No radiographic evidence of acute cardiopulmonary disease. Electronically Signed: Lorenzo Berry MD at 22:32 EST , Rhythm Strip Rhythm Strip: Sinus Tach Rate: 122 Ectopy: PAC(s) Physical Exam Narrative Physical exam: General: Alert, Oriented x3, Cooperative HEENT: Atraumatic Oral: Moist Mucosa Neck: Supple Lungs: Diminished to auscultation Cardiovascular: HS I+II, regular, no murmurs Abdomen: Bowel Sounds Present, Soft, Non Tender Extremities: No edema Skin: No rashes, No breakdown Neurological: Grossly intact Psych/Mental Status: Appropriate Assessment & Plan Assessment/Plan (1) Hypoxia: (2) Bronchitis: PLAN: Plan 1. Acute hypoxia secondary to acute rhinovirus bronchitis Patient denies any history of COPD He remains on 2 L of oxygen with low oxygen saturation in the low 90s Continue on breathing treatment, IV Solu-Medrol, continue to encourage use of incentive spirometer 2. Hypertension,controlled, continue on lisinopril/hydrochlorothiazide 3. CKD stage IIIa, creatinine is about the baseline, continue to trend 4. Hypothyroidism, continue Synthroid 5. Depression, continue on Paxil Charges/Coding Visit Charges Inpatient E&M: 24186 Subs Hosp L1
[2022-03-12] VITALS (7 sets, daily range): BP systolic 122–135; BP diastolic 70–98; PULSE 65–79; RESP 16–20; TEMP 36.6–36.8; O2SAT 90–93
[2022-03-12] MEDS: 0.9% Saline Lock 10 ML Syringe IV ×2 (06:03→13:36)
[2022-03-12] MEDS: Levothyroxine 50 MCG Tablet PO (06:03)
[2022-03-12] MEDS: Ipratropium 0.5 MG/2.5 ML SOLUTION INHALATION ×3 (06:58→15:05)
[2022-03-12] MEDS: hydroCHLOROthiazide 6.25mg TAB 6.25 MG PO (09:43)
[2022-03-12] MEDS: PARoxetine 10 MG Tablet 30 MG PO (09:43)
[2022-03-12] MEDS: Lisinopril 5 MG Tablet PO (09:43)
[2022-03-12] MEDS: Enoxaparin 40 MG/0.4 ML Syringe SC (09:43)
[2022-03-12] MEDS: Fluticasone 0.05% 1 SPRAY NASAL.SRY NASAL (09:43)
--- NOTE | 2022-03-12 15:17 | DCINST_ITS ---
Discharge Instructions Diet Discharge Diet: No restrictions Activity Discharge Activity: Return to Normal Activity Follow Up Care Test Results: Test results from this visit will be discussed in further detail at your follow- up appointment, if applicable. Discharge Plan Admission Admit Date/Time: 03/10/22 22:56 Primary Reason for Your Visit: Acute bronchitis Attending Provider: Sultana Craven Primary Care Provider: Marci Rose Consulting Providers: Darnell Mccarthy Instructions Additional Instructions / Restrictions: Continue to use your incentive spirometer. Continue to remain active and eat healthy. Complete your prednisone taper as prescribed. Follow-up with your primary care doctor within 1 week. Discharge Orders/Prescriptions Prescriptions: New prednisone 20 mg tablet 40 mg PO DAILY 5 Days Qty: 10 0RF albuterol sulfate 90 mcg/actuation HFA aerosol inhaler 2 puff inhalation Q4H PRN (Reason: shortness of breath or wheezing) Qty: 8.5 0RF Continued simvastatin 10 MG tablet 10 mg PO DAILY levothyroxine 50 MCG tablet 50 mcg PO DAILY paroxetine HCl 30 MG tablet 30 mg PO DAILY lisinopril-hydrochlorothiazide 10-12.5 tablet 5 - 6.25 mg PO DAILY Referrals / Follow Up: Marci Rose DO [Primary Care Provider] - In 1 Week Disposition Disposition (needs filled in before D/C Order can be placed): Home, Self Care
--- NOTE | 2022-03-12 15:23 | PCM.DC.SUM ---
Providers Date of Admission: 03/10/22 Date of Discharge: 03/12/22 Primary Care Physician: Dr. Marci Rose DO Reason For Visit: ACUTE BRONCHITIS Diagnosis Discharge Diagnosis (1) Hypoxia: Status: Acute Code(s): R09.02 - Hypoxemia (2) Bronchitis: Status: Acute Code(s): J40 - Bronchitis, not specified as acute or chronic Plan 1. Acute hypoxia secondary to acute rhinovirus bronchitis 2. Hypertension 3. CKD stage IIIa 4. Hypothyroidism 5. Depression Medications at Discharge Home Medications levothyroxine 50 mcg tablet 50 mcg PO DAILY thyroid 10/11/18 lisinopril 10 mg-hydrochlorothiazide 12.5 mg tablet 5 - 6.25 mg PO DAILY blood pressure 10/11/18 paroxetine HCl 30 mg tablet 30 mg PO DAILY mental health 10/11/18 simvastatin 10 mg tablet 10 mg PO DAILY cholesterol 10/11/18 albuterol sulfate 90 mcg/actuation aerosol inhaler 2 puff inhalation Q4H PRN shortness of breath or wheezing #8.5 grams 03/12/22 prednisone 20 mg tablet 40 mg PO DAILY 5 days #10 tabs 03/12/22 Hospital Course Operations None Procedures None Summary of Care Provided Minutes Spent on Discharge: 35 Hospital Course: 76-year-old male with past medical history of pretension, anxiety/depression who presented to the emergency room with progressive shortness of breath, cough and fatigue. Patient was admitted to nasal congestion. Patient was admitted to progressive care unit and managed as acute bronchitis. He was on 2 L of oxygen. Rapid COVID-19 influenza screen were negative. His white cell count was elevated at 12,000. Respiratory panel was positive for rhinovirus. Patient gradually continued to improve. He was evaluated for home oxygen at discharge and did not qualify. He was discharged on a short burst of prednisone as well as albuterol inhaler as needed. He will need to follow-up with his primary care doctor within 1 week. Physical Exam Narrative Physical exam: General: Alert, Oriented x3, Cooperative HEENT: Atraumatic Oral: Moist Mucosa Neck: Supple Lungs: Diminished to auscultation Cardiovascular: HS I+II, regular, no murmurs Abdomen: Bowel Sounds Present, Soft, Non Tender Extremities: No edema Skin: No rashes, No breakdown Neurological: Grossly intact Psych/Mental Status: Appropriate Weight / BMI Weight Weight: 80.4 kg Body Mass Index (BMI) 24.0 ABG / Lab / Microbiology Data Result Diagrams: 03/11/22 06:40 03/11/22 06:40 Microbiology: Microbiology 03/10/22 23:25 Mucosa - Nose Respiratory Panel (PCR) - Final Rhinovirus 03/10/22 21:37 Nasal Secretion SARS-CoV-2 & FLU Antigen (Rapid) - Final D/C Instructions Discharge Diet: No restrictions Meaningful Use Info Meaningful Use Diagnoses (Choose all that apply): None applicable Discharge Plan Admission Admit Date/Time: 03/10/22 22:56 Primary Reason for Your Visit: Acute bronchitis Attending Provider: Sultana Craven Primary Care Provider: Marci Rose Consulting Providers: Darnell Mccarthy Instructions Additional Instructions / Restrictions: Continue to use your incentive spirometer. Continue to remain active and eat healthy. Complete your prednisone taper as prescribed. Follow-up with your primary care doctor within 1 week. Discharge Orders/Prescriptions Prescriptions: New prednisone 20 mg tablet 40 mg PO DAILY 5 Days Qty: 10 0RF albuterol sulfate 90 mcg/actuation HFA aerosol inhaler 2 puff inhalation Q4H PRN (Reason: shortness of breath or wheezing) Qty: 8.5 0RF Continued simvastatin 10 MG tablet 10 mg PO DAILY levothyroxine 50 MCG tablet 50 mcg PO DAILY paroxetine HCl 30 MG tablet 30 mg PO DAILY lisinopril-hydrochlorothiazide 10-12.5 tablet 5 - 6.25 mg PO DAILY Referrals / Follow Up: Marci Rose DO [Primary Care Provider] - In 1 Week Disposition Disposition (needs filled in before D/C Order can be placed): Home, Self Care Charges/Coding Visit Charges Inpatient E&M: 81849 Disch Hosp >30min
== END 2022-03-12 16:24 | disposition home or self-care (01) | DRG 202 ==
LOC: ED 23:05 → PCU 23:32
PROVIDERS: Admitting Provider Hospitalist; Emergency Provider Emergency Medicine; PCP Internal Medicine; Visit Provider Internal Medicine
DX: J20.6 Acute bronchitis due to rhinovirus (principal); J96.01 Acute respiratory failure with hypoxia; N18.31 Chronic kidney disease, stage 3a; I12.9 Hypertensive chronic kidney disease with stage 1 through stage 4 chronic kidney disease, or unspecified chronic kidney disease; E78.5 Hyperlipidemia, unspecified; E03.9 Hypothyroidism, unspecified; F41.9 Anxiety disorder, unspecified; Z20.822 Contact with and (suspected) exposure to COVID-19; F32.A Depression, unspecified; Z79.890 Hormone replacement therapy; Z79.899 Other long term (current) drug therapy; Z87.891 Personal history of nicotine dependence
CPT/HCPCS: 36415; 71046; 80048; 80053; 85025; 87428; 87633; 93005; 94640; 94667; 94668; 99252; 99285; A4216; G0463

== ENCOUNTER → 2022-11-24 | Outpatient (CLI) | payer MEDICARE, OTHER, SELFPAY ==
--- NOTE | 2022-11-24 08:47 | CDU_ITS ---
Reason For Study: occlusion and stenosis of unspecified carotid artery Rt. Velocities/BP Lt. Velocities/BP Prox CCA 72.1/15.4 cm/sec. Prox CCA 90.5/16.8 cm/sec. Mid CCA 96.0/20.1 cm/sec. Mid CCA 85.0/22.3 cm/sec. Dist CCA 85.0/16.8 cm/sec. Dist CCA 67.4/17.9 cm/sec. Prox ICA 55.3/13.5 cm/sec. Prox ICA 46.5/12.4 cm/sec. Mid ICA 65.2/25.6 cm/sec. Mid ICA 74.0/24.5 cm/sec. Dist ICA 56.4/19.0 cm/sec. Dist ICA 64.1/21.2 cm/sec. Rt. ICA/CCA = .7. Lt. ICA/CCA = .9. Prox ECA 67.4/12.4 cm/sec. Prox ECA 89.4/12.4 cm/sec. Rt. Vert. 31.5/7.8 cm/sec. Lt. Vert. 57.5/19.0 cm/sec. Right Extracranial There is heterogeneous, smooth atherosclerotic plaque noted in the right common carotid artery. There is homogeneous, smooth atherosclerotic plaque noted in the right internal carotid artery. There is intimal thickening but no significant atherosclerotic plaque noted in the right external carotid artery. Antegrade flow is noted in the right vertebral artery. Left Extracranial There is homogeneous, smooth atherosclerotic plaque noted in the left common carotid artery. There is heterogeneous, irregular atherosclerotic plaque noted in the left internal carotid artery. There is homogeneous, smooth atherosclerotic plaque noted in the left external carotid artery. Antegrade flow is noted in the left vertebral artery. Procedure Carotid Duplex [id number]. This is a Carotid Duplex examination using B-mode, color flow and specral Doppler. The exam was diagnostic. Exam performed in department. VL/Carotid Duplex Ultrasound Interpretation Summary Mild (<50%) stenosis right extracranial internal carotid. Mild (<50%) stenosis left extracranial internal carotid. Patent and antegrade vertebrals bilaterally. Ordering Physician: Marci Rose Performed By: Jurgen Kim RVT
== END | disposition home or self-care (01) ==
PROVIDERS: PCP Internal Medicine; Referring Provider Internal Medicine; Visit Provider Internal Medicine
DX: I65.23 Occlusion and stenosis of bilateral carotid arteries (principal)
CPT/HCPCS: 93880

== ENCOUNTER 2022-11-25 13:00 | Outpatient (RCR) | payer MEDICARE, OTHER, SELFPAY ==
--- NOTE | 2022-11-04 14:19 | HP.PTEVAL ---
Patient's Visit Information Visit Information Visit Information: SIERRA GARCÍA is a 77 year old M referred to Physical Therapy by Dr. Marci Rose DO with a diagnosis of abnormal gait. Date of Evaluation: 11/04/22 Physical Therapist: Sha Alegria, DPT, OCS, CSCS Visit Plan Frequency: 3x /Week Duration: 4-6 Weeks Plan: 3x/week for 3-6 weeks as needed. 1. Please teach DLS mat, general LE and postural standing exercises and weight shifting ex and give pics as able for HEP. 2. Lumbar flexion ex 3. Gait to train in longer steps for balance safety. consider balance test when gait improved. given today trunk rotation and pelvic tilt post 10x each 2x/day and educate on longer steps even if needs to use cane, also to continue HS stretch, SKC, DKC he is already doing at home Subjective Subjective: Sees Tony for spinal stenosis. May be cervical stenosis. has chronic pain in spine. Feels like he is losing balance at times. has had this 3 yrs. Does exercise for back stretches and not strengthening, they help. Leg pain has been intermittent and not worsening, feels more like stiffness. Back can feel weak. Has seen [facility] spine doctor and does not want to do surgery on him, asked him to walk. Balance is now effected. Had one fall at a [employer] football game losing balance. No spinning on a typical basis. Maybe one time a week. Has no nknown neuropathy. Cannot jog anymore. Legs feel generally weak. Basic ADLs are getting done. uncomfortable to clean at times in legs and back. Legs worse on feet, no pain when sitting. Hobbies include amateur radio, [employer] motorcycles, hard to get up and down. Retired [employer]. Pain legs and LB: Pain Intensity (Out of 10): 0 Pain Intensity Range: 0 and 3 Comment: stiffness Objective Objective: Short steps with walking and slightly neuropathic gait but I. Transfers stiff from chair and bed but I. Steps reciprocal with one rail with only slight weight shift. Good balance but weight shift is inconfident and avoids big steps. coordination to reciprocal toe tap is fair reflexes 2/3 patella and achilles sensation LE WNL to hermila slight touch but proprioception looks to be effected functionally. Strength ankles 4-, knees 4- and hips 3+ abd and ext and flexion, core strength abs and ext 3/5 - slump, - SLR. HS adn quad mod tight. Very poor pelvic motion ant and post. Balance/Special Test Scores Functional Gait Assessment Score: 26 % Disability: 13.3400 CATSIB Score (Max score 120 seconds): 120 Lower Extremity Functional Score: 31 Goals Goal 1:: I appropr HEP for posture, general LE and core strength, DLS and pelvic ROM to HEP to manage problem Goal Time Frame: 4-6 Weeks Goal 2:: Pt feel 505 better in balance and ability to get around Goal Time Frame: 4-6 Weeks Goal 3:: LEFS 45 Goal Time Frame: 4-6 Weeks Goal 4:: Walk with appropriate step length adn FW weight shift I without VC Goal Time Frame: 4-6 Weeks Rehabilitation Potential Physical Therapy Diagnosis: pt avoiding weight shift effecting gait likely due to LB causing neuropathy. Rehabilitation Potential: Fair Anticipated Interventions Patient/Client Instruction: Educate patient on: Condition and Plan of Care For the Purpose of:: To decrease pain, To increase ROM, To improve nutrient delivery to tissue, To improve muscle performance and motor function, To increase tolerance to activity/condition/position and To improve ability of physical actions for home/community/work/leisure Therapeutic Exercise to Include: Strength training, Postural training, Flexibilty training, Gait and locomotor training, Passive ROM, Active ROM and Dynamic Lumbar Stabilization For the Purpose of:: To increase ROM, To improve nutrient delivery to tissue, To improve muscle performance and motor function, To increase tolerance to activity/condition/position, To improve ability of physical actions for home/community/work/leisure and To improve gait and locomotor functions Manual Therapy Techniques to Include: Mobilization and Passive ROM For the Purpose of:: To increase ROM Text: Thank you for the opportunity to evaluate your patient. For Medicare and Medicare HMO plans, please review the plan of care and approve it. It will need to be FAXED BACK to us at [phone] for Medicare purposes. For Medicare only, by signing this I certify the plan of care. Please let me know if there are questions or concerns regarding this plan of care. Physician Signature: Date:
--- NOTE | 2022-11-25 13:47 | HP.PTDCSUM ---
Discharge Summary D/C summary: It has been my pleasure to treat SIERRA GARCÍA referred by Dr. Marci Rose DO, with the diagnosis of abnormal gait for a total of 9 visit(s). Discharge Date: Please see the following information for a summary of their discharge status. Subjective Subjective: Getting better. Exercises in clinic are very helpful. Balance exercises are especially helpful. But has 1.5 hrs of exercise with the rest of regimen. Feels like gait with cane is right now. Thinks he can continue at home from this point. Does home exercises daily to every other day. Pain legs and LB: Pain Intensity (Out of 10): Unrated Overall Improvement % Improvement: 75 Objective Objective/Function: Walking with cane with fair FW weight shift, good step length about 2 inches past other foot. Can walk without cane I today also. Corrected cane patti with VC immediately and feels ready to do these exercises on his own at home. Goals Goal 1:: I appropr HEP for posture, general LE and core strength, DLS and pelvic ROM to HEP to manage problem Goal Progress: Goal Met Goal 2:: Pt feel 505 better in balance and ability to get around Goal Progress: Goal Met Goal 3:: LEFS 45 Goal 4:: Walk with appropriate step length adn FW weight shift I without VC Plan Plan: d/c to HEP D/C Information d/c sentence: If there are questions or concerns regarding this patient's physical therapy, please feel free to call me at [phone]. Thank you for the referral of this patient. Sincerely, Sha Alegria, DPT, OCS, CSCS Balance/Gait/Functional tests Balance/Special Test Scores Functional Gait Assessment Score: 26 % Disability: 13.3400 CATSIB Score (Max score 120 seconds): 120 Lower Extremity Functional Score: 47 Improvement % Improvement: 75
== END 2022-11-25 14:29 | disposition home or self-care (01) ==
LOC: PT 13:00
PROVIDERS: PCP Internal Medicine; Referring Provider Internal Medicine; Visit Provider Internal Medicine
DX: R26.9 Unspecified abnormalities of gait and mobility (principal)
CPT/HCPCS: 97110; 97162; 97164

== ENCOUNTER → 2023-01-12 | Outpatient (CLI) | payer MEDICARE, OTHER, SELFPAY ==
--- NOTE | 2023-01-12 12:16 | EKG12_ITS ---
Test Reason : PRE OP Blood Pressure : / mmHG Vent. Rate : 096 BPM Atrial Rate : 096 BPM P-R Int : 152 ms QRS Dur : 088 ms QT Int : 324 ms P-R-T Axes : 027 -32 033 degrees QTc Int : 409 ms Sinus rhythm with Blocked Premature atrial complexes Left axis deviation Abnormal ECG Confirmed by GIANNI SILVESTRE, ROLO ([id number]), supervising editor trailer KENROY ÁLVAREZ ([id number]) on 01/18/2023 7:31:51 AM Referred By: Marci Rose Confirmed By:KIMMY ARCHER MD
== END | disposition home or self-care (01) ==
LOC: CVS 12:13
PROVIDERS: PCP Internal Medicine; Referring Provider Internal Medicine; Visit Provider Internal Medicine
DX: I49.9 Cardiac arrhythmia, unspecified (principal)
CPT/HCPCS: 93005; 93225; 93226

== ENCOUNTER 2024-02-16 15:59 | Emergency (ER) | payer MEDICARE, OTHER, SELFPAY ==
[2024-02-16] VITALS (13 sets, daily range): BP systolic 90–170; BP diastolic 76–108; PULSE 53–108; RESP 18–30; TEMP 36.7; O2SAT 95–97; BMI 24.6
--- NOTE | 2024-02-16 17:36 | EKG12_ITS ---
Test Reason : Blood Pressure : */* mmHG Vent. Rate : 80 BPM Atrial Rate : 70 BPM P-R Int : 140 ms QRS Dur : 94 ms QT Int : 370 ms P-R-T Axes : 39 -33 44 degrees QTcB Int : 426 ms Sinus rhythm with Premature supraventricular complexes Left axis deviation Abnormal ECG Confirmed by MINNIE SILVESTRE, ZOË ([id number]), makeup editor BRENDA WINCHESTER ([id number]) on 02/23/2024 2:28:16 PM Referred By: Confirmed By: ZOË HARTMAN MD
--- NOTE | 2024-02-16 17:50 | RAD_ITS ---
STUDY: X-RAY CHEST REASON FOR EXAM: Male, 78 years old. sob TECHNIQUE: PA and lateral COMPARISON: March 10, 2022 FINDINGS: There is diminished inspiratory effort however the lungs are clear.. There is no demonstrated pleural abnormality. Normal size heart. Normal mediastinum and bernardino. Normal visualized pulmonary arteries. Normal visualized aortic arch and descending thoracic aorta. Dorsal spine demonstrates scoliosis and degenerative changes. Normal visualized ribs, clavicles, and shoulders. There is no demonstrated abnormality of the visualized soft tissue structures of the upper abdomen. RAD/Chest PA and Lateral IMPRESSION: Diminished inspiratory effort. No acute cardio pulmonary pathology. Electronically Signed: Wojciech Sharif MD at 19:00 EST ,
[2024-02-16 18:06] LABS: Absolute Neutrophil Count 6.4 X10^3/uL (2.0-7.7); Basophil# 0.05 X10^3/uL; Basophil% 0.5 % (0-1); Eosinophils% 2.2 % (0-5); Hematocrit 45.8 % (40-54); Hemoglobin 15.2 g/dL (13.0-16.5); Lymphocyte % 18.6 % (19-41); Mean Corp Hgb Conc 33.2 g/dL (32-36); Mean Corpuscular Hgb 28.5 pg (27.0-32.0); Mean Corpuscular Volume 85.9 fL (80-94); Mean Platelet Vol. 12.3 fl (6.2-12.0); Monocyte# 0.78 X10^3/uL; Monocyte% 8.5 % (0-10); NRBC Flagged by Analyzer 0 % (0-5); Neutrophil # 6.37 X10^3/uL (2.7-7.7); Neutrophil % 69.9 % (47-70); POSITIVE COUNT YES; Platelet Count 151 K/mm3 (150-450); RBC Distribution Width SD 43.6 fl (35.1-43.9); Red Blood Count 5.33 M/mm3 (4.6-6.2); White Blood Count 9.1 K/mm3 (4.4-11.0)
[2024-02-16 18:09] LABS: Differential Indicated SCAN CRITERIA MET
--- NOTE | 2024-02-16 18:21 | EDS_ITS ---
HPI History of Present Illness Chief Complaint: Shortness of Breath Informant: patient Narrative Narrative: 78-year-old male states 3 days ago, he got off of his e-bike and walked into the local [place] and was dyspneic due to this, it got a lot better quickly when he rested. Ever since then, he states he has been walking fine without getting dyspneic, but when he bends over such as at night to take off his shoes/socks, he gets a little out of breath but has no orthopnea or dyspnea otherwise. No associated chest discomfort, near-syncope, syncope. He states he is already limited with regards to walking because of his spinal stenosis, has been feeling a little more tired than usual lately, he states the spinal stenosis makes him feel weak and tired all the time and is his most limiting issue when it comes to getting around. He has had no cough. He has had a runny nose. No fevers or chills. No GI symptoms such as vomiting or diarrhea or pain. However he states he is here because he is concerned he may have pneumonia because he talked to [facility] people who told him that pneumonia was going around lately and he should not write his mild symptoms off. [facility] Medical History Back pain Pneumonia, pneumococcal Pneumonia Arthritis HTN (hypertension) Hypothyroid Home Medications ?Medication ?Instructions ?Recorded ?Last Taken ?Type levothyroxine 50 mcg tablet 50 mcg PO DAILY thyroid 10/11/18 Unknown History lisinopril 10 5 - 6.25 mg PO DAILY blood pressure 10/11/18 Unknown History mg-hydrochlorothiazide 12.5 mg tablet paroxetine HCl 30 mg tablet 30 mg PO DAILY mental health 10/11/18 Unknown History simvastatin 10 mg tablet 10 mg PO DAILY cholesterol 10/11/18 Unknown History gabapentin 100 mg capsule 100 mg PO TID 02/16/24 Unknown History [id number]-epa-fish oil-vit D3 1 cap PO DAILY 02/16/24 Unknown History 350 mg-400 mg-1,000 unit capsule Allergy/AdvReac Type Severity Reaction Status Date / Time No Known Allergies Allergy Verified 02/16/24 15:59 Family History Mother Leo's hereditary optic atrophy Aunt Leo's hereditary optic atrophy Uncle Leo's hereditary optic atrophy Surgical History no surgical history Social History household members: none Smoking Status: Former smoker substance use type: does not use ROS ROS ED Constitutional Constitutional ED: Reports fatigue; Denies chills or fever(s) Eyes Eyes: Denies change in vision or diplopia ENT ENT ED: Reports rhinorrhea; Denies sore throat Cardiovascular Cardiovascular: Denies chest pain, palpitations or syncope Respiratory/Chest Respiratory/Chest: Reports as per HPI and dyspnea on exertion; Denies cough or dyspnea Gastrointestinal Gastrointestinal: Denies abdominal pain, diarrhea, nausea or vomiting Genitourinary Genitourinary ED: Denies dysuria or hematuria Musculoskeletal Musculoskeletal: Denies neck pain Integumentary Denies abscess or rash Neurologic Neurologic: Denies headache(s), paresthesias or weakness Psychiatric Psychiatric: Denies anxiety or suicidal thoughts EXAM Physical Exam Const Vital Signs: 02/16/24 15:59 02/16/24 17:05 02/16/24 17:36 Temperature 98.1 F Temperature Source Oral Pulse Rate 53 L Respiratory Rate 18 Respiratory Effort Normal Non-Labored Respiratory Depth Normal Respiratory Pattern Normal Blood Pressure 154/80 H Blood Pressure Mean 104 Pulse Ox 95 Oxygen Delivery Method Room Air Room Air Room Air 02/16/24 17:45 02/16/24 17:47 02/16/24 18:00 Temperature Temperature Source Pulse Rate 85 81 Respiratory Rate 26 H 23 H Respiratory Effort Respiratory Depth Respiratory Pattern Blood Pressure 156/108 H 159/89 H Blood Pressure Mean 123 111 Pulse Ox Oxygen Delivery Method 02/16/24 18:15 02/16/24 18:30 02/16/24 18:45 Temperature Temperature Source Pulse Rate 81 78 86 Respiratory Rate 22 H 22 H 22 H Respiratory Effort Respiratory Depth Respiratory Pattern Blood Pressure 167/96 H 162/102 H 166/103 H Blood Pressure Mean 115 121 123 Pulse Ox Oxygen Delivery Method 02/16/24 19:00 02/16/24 19:15 02/16/24 19:16 Temperature Temperature Source Pulse Rate 108 H 76 76 Respiratory Rate 30 H 23 H 26 H Respiratory Effort Respiratory Depth Respiratory Pattern Blood Pressure 90/76 170/108 H Blood Pressure Mean 82 127 Pulse Ox Oxygen Delivery Method 02/16/24 19:30 Temperature Temperature Source Pulse Rate 78 Respiratory Rate 23 H Respiratory Effort Respiratory Depth Respiratory Pattern Blood Pressure Blood Pressure Mean Pulse Ox Oxygen Delivery Method Positive well nourished and well developed General Appearance ED: well developed and NAD HEENT Reports moist mucous membranes normocephalic and atraumatic Eyes PERRL and EOMs intact bilaterally Neck full ROM and supple Resp normal respiratory effort and clear to auscultation bilaterally Cardio regular rate, regular rhythm and no murmurs GI non-tender and non-distended Auscultation: normoactive bowel sounds Palpation: soft Back/Spine no CVA tenderness General Back: other FROM Extremity normal to inspection General Extremety ED: Negative for edema, pulses abnormal or tenderness General Extremity: Negative for edema or pulses abnormal Neuro oriented x3, CN's II-XII intact bilaterally and no sensory deficits noted Sensorium / Orientation: awake and alert Motor Exam: strength 5/5 throughout Skin no rashes or lesions noted and no wounds MDM MDM MDM Narrative Medical decision making narrative: Wide differential including anemia, electrolyte disturbance such as hypokalemia, pneumonia, cardiopulmonary etiologies other than infections such as CHF or dysrhythmia, especially given the patient's age. Given all this I think reasonable to obtain a chest x-ray in addition to an EKG and labs. I reviewed all of these, his rhythm is sinus, he has frequent PACs but is asymptomatic from those right now. Is possible he could have been related to his dyspnea that he had several days ago, and/or dysrhythmia but unknown. His troponin and BNP are normal, his potassium is 5.2 which is barely out of range there is no EKG edges of hyperkalemia, I think he just needs routine follow-up for this and not emergent treatment, his renal insufficiency is similar to prior numbers. No sign of pneumonia on the two-view chest x-ray on my interpretation of radiology was in agreement. Given all this uncomfortable the patient being discharged home and following up with his doctor. Given his age and the fact that he had a single episode 3 days ago, I do not think he needs to be put on a beta-byron emergently. Lab Data Attestation: I reviewed the patient's lab results. Labs: Laboratory Results - last 24 hr 02/16/24 17:09 WBC 9.1 RBC 5.33 Hgb 15.2 Hct 45.8 MCV 85.9 MCH 28.5 MCHC 33.2 RDW Std Deviation 43.6 RDW Coeff of Alan 14.0 Plt Count 151 MPV 12.3 H Immature Gran % (Auto) 0.300 Neut % (Auto) 69.9 Lymph % (Auto) 18.6 L Tyler % (Auto) 8.5 Eos % (Auto) 2.2 Baso % (Auto) 0.5 Absolute Neuts (auto) 6.4 Absolute Lymphs (auto) 1.70 Nucleated RBC % 0 Differential Comment SCANNED Sodium 136 Potassium 5.2 H Chloride 106 Carbon Dioxide 25.0 Anion Gap 5 BUN 29 H Creatinine 1.35 H Estim Creat Clear Calc 51.09 Est GFR (MDRD) Af Amer 66 Est GFR (MDRD) Non-Af 55 L BUN/Creatinine Ratio 21.5 H Glucose 87 Calcium 11.1 H Troponin I High Sens 6 B-Natriuretic Peptide 18.2 Radiography Diagnostic Testing: Clinical Impression(s) from Imaging Studies Chest X-Ray 02/16/24 17:50 IMPRESSION: Diminished inspiratory effort. No acute cardio pulmonary pathology. Electronically Signed: Wojciech Sharif MD at 19:00 EST Reading Location ID and State: [address] [place] [address] Tel , Service support , Rhythm Strip Rhythm Strip: Sinus Rhythm Rate: 80 Ectopy: PAC(s) Discharge Plan Triage Chief Complaint: Shortness of Breath ED Provider: Yevgeniy Andrew Dx/Rx/DC Orders Clinical Impression: Acute dyspnea, PAC (premature atrial contraction), Chronic renal insufficiency, Hyperkalemia Instructions: PVCs, ED Hyperkalemia Prescriptions: No Action simvastatin 10 MG tablet 10 mg PO DAILY levothyroxine 50 MCG tablet 50 mcg PO DAILY paroxetine HCl 30 MG tablet 30 mg PO DAILY lisinopril-hydrochlorothiazide 10-12.5 tablet 5 - 6.25 mg PO DAILY gabapentin 100 mg capsule 100 mg PO TID [id number] oil-D3 350 mg-400 mg- 1,000 unit capsule 1 cap PO DAILY Primary Care Provider: Marci Rose Referrals: Marci Rose, [Primary Care Provider] - 3-5 Days if not improving Activity Restrictions/Additional Instructions: Avoid potassium intake until you follow-up, see instructions. Print Language: Yakut Disposition Disposition: Home, Self Care
[2024-02-16 18:25] LABS: Anion Gap 5 (5-15); BUN 29 mg/dL (7-18); BUN/Creat Ratio 21.5 RATIO (10-20); Calcium,Total 11.1 mg/dL (8.5-10.1); Chloride 106 mmol/L (98-107); Creatinine, Serum 1.35 mg/dL (0.70-1.30); EST Glomerular Filtration Rate 55 mL/min (>60); Est Glom Filt Rate - Afr Amer 66 mL/min (>60); Estimated Creatinine Clearance 51.09 ml/min; Glucose 87 mg/dL (74-106); Potassium 5.2 mmol/L (3.5-5.1); Sodium Level 136 mmol/L (136-145); Troponin-I HS 6 pg/mL (3.0-78.0)
[2024-02-16 18:39] LABS: Differential Comment SCANNED
[2024-02-16 19:01] LABS: BNP,B-Type NATRIURETIC PEPTIDE 18.2 pg/mL (0-100)
== END 2024-02-16 20:24 | disposition home or self-care (01) ==
PROVIDERS: Emergency Provider Emergency Medicine; PCP Internal Medicine; Visit Provider Emergency Medicine
DX: R06.09 Other forms of dyspnea (principal); E03.9 Hypothyroidism, unspecified; I12.9 Hypertensive chronic kidney disease with stage 1 through stage 4 chronic kidney disease, or unspecified chronic kidney disease; N18.9 Chronic kidney disease, unspecified; I49.1 Atrial premature depolarization; E87.5 Hyperkalemia; M19.90 Unspecified osteoarthritis, unspecified site; Z79.890 Hormone replacement therapy; Z79.899 Other long term (current) drug therapy; Z87.891 Personal history of nicotine dependence
CPT/HCPCS: 71046; 80048; 83880; 84484; 85025; 93005; 99284; A4216

== ENCOUNTER → 2024-03-02 | Outpatient (CLI) | payer MEDICARE, OTHER, SELFPAY ==
[2024-03-02 16:29] LABS: Bacteria 0 SEEN /hpf (None Seen); Mucous, Urine 0 SEEN /hpf (<or=2+); Red Blood Cells-Urine 0 SEEN /hpf (0-5); Squamous Epithelial Cells - UA 0 SEEN /hpf (0-5); White Blood Cells 0 SEEN /hpf (0-5)
[2024-03-02 17:47] LABS: Absolute Lymphocyte Count 1.63 X10^3/uL (0.83-4.51); Absolute Neutrophil Count 4.6 X10^3/uL (2.0-7.7); Basophil# 0.05 X10^3/uL; Basophil% 0.7 % (0-1); Eosinophil# 0.34 X10^3/uL; Eosinophils% 4.6 % (0-5); Hematocrit 45.9 % (40-54); Hemoglobin 14.5 g/dL (13.0-16.5); Lymphocyte # 1.63 X10^3/ul (0.83-4.51); Lymphocyte % 22.2 % (19-41); Mean Corp Hgb Conc 31.6 g/dL (32-36); Mean Corpuscular Volume 88.6 fL (80-94); Mean Platelet Vol. 12.6 fl (6.2-12.0); Monocyte# 0.66 X10^3/uL; NRBC Flagged by Analyzer 0 % (0-5); Neutrophil # 4.63 X10^3/uL (2.7-7.7); Neutrophil % 63.2 % (47-70); Platelet Count 195 K/mm3 (150-450); RBC Distribution Width CV 14.4 % (11.6-14.6); RBC Distribution Width SD 46.1 fl (35.1-43.9); Red Blood Count 5.18 M/mm3 (4.6-6.2); White Blood Count 7.3 K/mm3 (4.4-11.0)
[2024-03-02 17:50] LABS: Color, Urine Straw (Yellow); Glucose, Dipstick Normal (Normal); Ketone-Dipstick Negative (Negative); Leukocyte Esterase-Dipstick Negative /ul (Negative); Nitrite-Dipstick Negative (Negative); Occult Blood-Urine Negative /ul (Negative); Protein-Dipstick Negative (Negative); Urine Bilirubin Dipstick Negative (Negative); Urine Clarity Clear (Clear); Urine Urobilinogen Normal (Normal); Urine pH 6.5 (5.0 - 8.0)
[2024-03-02 18:07] LABS: ALB/GLOB Ratio 1.1 RATIO (0.9-2.4); AST(SGOT) 24 U/L (15-37); Alanine Aminotransfer ALT/SGPT 42 U/L (16-61); Albumin, Serum 3.9 g/dL (3.2-5.0); Alkaline Phosphatase 76 U/L (45-117); Anion Gap 6 (5-15); BUN 24 mg/dL (7-18); BUN/Creat Ratio 18.8 RATIO (10-20); Calcium,Total 10.2 mg/dL (8.5-10.1); Chloride 106 mmol/L (98-107); Cholesterol 268 mg/dL (200); Creatinine, Serum 1.28 mg/dL (0.70-1.30); EST Glomerular Filtration Rate 58 mL/min (>60); Est Glom Filt Rate - Afr Amer 70 mL/min (>60); Globulin 3.6 g/dL (2.2-4.2); Glucose 98 mg/dL (74-106); High Density Lipoprotein 76 mg/dL; Potassium 4.3 mmol/L (3.5-5.1); Protein, Total 7.5 g/dL (6.4-8.2); Sodium Level 141 mmol/L (136-145); Triglycerides 94 mg/dL; Very Low Density Lipoprotein 19 mg/dL (5-40)
[2024-03-02 18:23] LABS: D-Dimer Quantitative (DVT/PE) 0.65 FEU/ug/m (0.27-0.49)
[2024-03-02 18:34] LABS: Microalbumin,Random Urine 13.5 mg/L (NO RANGE EST.); Microalbumin:Creatinine Ratio 18.5 mg/g CRE (<30 mg/g CRE)
[2024-03-07 14:07] LABS: Vitamin D 1,25-Dihydroxy 45.3 pg/mL (24.8-81.5)
== END | disposition home or self-care (01) ==
LOC: MFPLAB 16:25
PROVIDERS: PCP Internal Medicine; Visit Provider Internal Medicine
DX: E03.9 Hypothyroidism, unspecified (principal); E55.9 Vitamin D deficiency, unspecified; I10 Essential (primary) hypertension; R06.02 Shortness of breath
CPT/HCPCS: 36415; 80053; 80061; 81001; 82043; 82570; 82652; 84443; 85025; 85379

== ENCOUNTER → 2024-03-03 | Outpatient (CLI) | payer MEDICARE, OTHER, SELFPAY ==
--- NOTE | 2024-03-03 12:02 | CT_ITS ---
STUDY: CTA CHEST REASON FOR EXAM: Male, 78 years old. Elevated d-dimer RADIATION DOSAGE (If Supplied By Facility): CTDIvol = ( 9.53 ) mGy, DLP = ( 277.37 ) mGycm TECHNIQUE: The examination was performed with the intravenous administration of IV 100mL Isovue-370. Post-processing of the angiographic images was performed, with multiplanar reformation and 3D reconstruction. Individualized dose optimization techniques were used for this CT. COMPARISON: Chest x-ray February 16, 2024 FINDINGS: Normal enhancement of the main pulmonary artery and right and left pulmonary arteries. Normal enhancement of the bilateral peripheral pulmonary arteries. There is no demonstrated pulmonary embolism. There is atherosclerotic calcification of the aortic arch with tortuosity. There is no demonstrated aortic dissection. There are calcifications of the coronary arteries. Normal mediastinum. Normal hilar regions. Normal visualized trachea and bronchi. The lungs are well expanded. Normal pulmonary parenchyma. Normal pleura. Normal chest wall structures. There is dextro scoliosis and degenerative change of the spine. Normal visualized upper abdomen. CT/CTA Chest W/WO Contrast IMPRESSION: Normal CTA chest examination, without a demonstrated pulmonary embolism or arterial dissection. Electronically Signed: Yevgeniy Rodas MD at 13:45 EST ,
== END | disposition home or self-care (01) ==
LOC: CT 11:57
PROVIDERS: PCP Internal Medicine; Referring Provider Internal Medicine; Visit Provider Internal Medicine
DX: R79.89 Other specified abnormal findings of blood chemistry (principal)
CPT/HCPCS: 71275; Q9967

== ENCOUNTER → 2024-03-15 | Outpatient (CLI) | payer MEDICARE, OTHER, SELFPAY ==
--- NOTE | 2024-03-15 13:55 | ECHOD_ITS ---
Reason For Study: Chest Pain Procedure This was a 2D Doppler, Color Flow transthoracic echocardiogram. The study was technically difficult. Exam performed in department. Left Ventricle Normal LV size. The estimated ejection fraction is 60 %. No evidence for diastolic dysfunction. No regional wall motion abnormalities noted. Right Ventricle Normal RV size. Normal systolic function. Atria The left and right atria are normal. Mitral Valve There is no mitral valve stenosis. No mitral valve insufficiency. Tricuspid Valve There is no tricuspid stenosis. Unable to estimate RV systolic pressure due to inadequate jet, pulmonary artery pressure probably normal. Aortic Valve Trisinus/trileaflet aortic valve. There is no aortic stenosis. No aortic valve insufficiency. Pulmonic Valve There is no pulmonic valvular stenosis. No pulmonic valve insufficiency. Great Vessels Normal aortic root. Pericardium/Pleural No pericardial effusion. MMode/2D Measurements & Calculations LVIDd: 4.1 cm IVSd: 1.0 cm Ao root diam: 3.9 cm LVIDs: 2.9 cm LVPWd: 1.0 cm RVDd: 3.2 cm FS: 28.6 % LAV(MOD-bp): 36.7 ml LA A4 area: 14.7 cm2 LA dimension(2D): 3.5 cm LAV(MOD-bp) Indexed: 18.1 ml/m2 LAV(MOD-sp2): 31.4 ml LAV(MOD-sp4): 40.4 ml RA A4 area: 9.3 cm2 Time Measurements MV dec time: 0.28 sec Doppler Measurements & Calculations MV E max marco antonio: 52.1 cm/sec Lat Peak E' Marco Antonio: 9.2 cm/sec Med Peak E' Marco Antonio: 5.8 cm/sec MV A max marco antonio: 80.0 cm/sec E/E' lat: 5.6 E/E' med: 9.0 MV E/A: 0.65 MV V2 max: 74.5 cm/sec MV P1/2t max marco antonio: 50.0 cm/sec Ao V2 max: 96.2 cm/sec MV max P.2 mmHg MV P1/2t: 91.0 msec Ao max P.7 mmHg MV V2 mean: 35.0 cm/sec MV dec slope: 160.9 cm/sec2 MV mean P.57 mmHg MV V2 VTI: 20.3 cm MVA(P1/2t): 2.4 cm2 LV V1 max: 81.9 cm/sec LV V1 max P.7 mmHg ECHO/Echo Complete Interpretation Summary The estimated ejection fraction is 60 %. No evidence for diastolic dysfunction. Ordering Physician: Marci Rose Referring Physician: Marci Rose Performed By: Castillo Donato RCS
== END | disposition home or self-care (01) ==
LOC: CVS 13:54
PROVIDERS: PCP Internal Medicine; Referring Provider Internal Medicine; Visit Provider Internal Medicine
DX: R07.89 Other chest pain (principal)
CPT/HCPCS: 93306

== ENCOUNTER 2024-05-03 11:13 | Inpatient (IN) | payer MEDICARE, OTHER, SELFPAY ==
[2024-05-03] VITALS (8 sets, daily range): BP systolic 76–127; BP diastolic 40–82; PULSE 72–114; RESP 14–28; TEMP 35.9–37.8; O2SAT 95–98; BMI 24.4; BMI 23.8
--- NOTE | 2024-05-03 12:17 | EKG12_ITS ---
Test Reason : Blood Pressure : */* mmHG Vent. Rate : 100 BPM Atrial Rate : 100 BPM P-R Int : 138 ms QRS Dur : 92 ms QT Int : 336 ms P-R-T Axes : 33 -41 40 degrees QTcB Int : 433 ms Normal sinus rhythm Left axis deviation Abnormal ECG Confirmed by Tex Low ([id number]), commercial production editor KENROY ÁLVAREZ ([id number]) on 05/04/2024 9:34:08 AM Referred By: AR/TB Confirmed By: Tex Low
--- NOTE | 2024-05-03 12:17 | EDS_ITS ---
HPI History of Present Illness Chief Complaint: General Illness Narrative Narrative: 79-year-old male, past medical history of hypertension, hyperlipidemia and spinal stenosis presents with generalized weakness and multiple somatic complaints that has had for the last few days. His friend who is with him states that he called him on Wednesday, 2 days ago and they were supposed to have a birthday republican for him today but he had already not started to feel well. He states over the last few days has had a generalized weakness and is generally tired. Of note, with his history of hypertension he was on lisinopril but was told by his primary care provider to cut back on it because of a cough. He denies any fevers or chills but states that he has had occasional cough and shortness of breath. Additionally, at times he is leaking urine. He is not totally incontinent and denies any loss of sensation but states he cannot make it to the toilet in time and sometimes has leakage of urine. Its only occasionally. He presents to the emergency department mainly because of the malaise and fatigue. It was noted in triage that he had a low blood pressure. He states he usually takes his blood pressure daily, and yesterday it was fine. [facility] Medical History Leo hereditary optic atrophy Back pain Pneumonia, pneumococcal Pneumonia Arthritis HTN (hypertension) Hypothyroid Home Medications ?Medication ?Instructions ?Recorded ?Last Taken ?Type levothyroxine 50 mcg tablet 50 mcg PO DAILY thyroid Unknown History lisinopril 10 5 - 6.25 mg PO DAILY PRN blo od 10/11/18 Unknown History mg-hydrochlorothiazide 12.5 mg pressure tablet paroxetine HCl 30 mg tablet 30 mg PO DAILY mental heal th 10/11/18 Unknown History simvastatin 10 mg tablet 10 mg PO DAILY cholesterol 0 10/11/18 Unknown History gabapentin 100 mg capsule 100 mg PO TID PRN pain 02/15 Unknown History [id number]-epa-fish oil-vit D3 1 cap PO DAILY Unknown History 350 mg-400 mg-1,000 unit capsule Allergy/AdvReac Type Severity Reaction Status Date / Time No Known Allergies Allergy Verified 05/03/24 11:17 Family History Mother Leo's hereditary optic atrophy Aunt Leo's hereditary optic atrophy Uncle Leo's hereditary optic atrophy Social History household members: none Smoking Status: Former smoker substance use type: does not use ROS ROS ED ROS Narrative Constitutional: No fever, no chills. Generalized weakness. Positive malaise and fatigue. HEENT: No sore throat. No neck pain. No rhinorrhea. Cardiovascular: No chest pain. No palpitations. No pedal edema. Respiratory: Occasional cough, positive shortness of breath. Abdominal: No abdominal pain. No nausea. No vomiting. Genitourinary: No dysuria. No hematuria. Occasional leakage of urine. Musculoskeletal: No myalgias. No arthralgias. Neurologic: Occasional slight headaches. No dizziness. No lightheadedness. Skin: No rash. No change in color. Psychiatric: No depression. No anxiety. EXAM Physical Exam Narrative Exam Narrative: Afebrile. Vital signs noted. Initially blood pressure 76/40 with tachycardia 114. On my examination blood pressure over 100 systolic, not tachycardic. Abdomen soft and nontender with positive bowel sounds. Cardiovascular examination reveals a regular rate and rhythm. Occasional expiratory wheezing bilateral lung skelton. Moving a good amount of air. Neurological examination nonfocal and nonlateralizing. Moist mucous membranes. Const Vital Signs: 05/03/24 11:14 05/03/24 11:54 05/03/24 11:54 Temperature 96.6 F L 98.7 F Temperature Source Temporal Oral Pulse Rate 114 H 98 Respiratory Rate 18 18 Respiratory Effort Normal Respiratory Pattern Normal Blood Pressure 76/40 L 102/72 Blood Pressure Mean 52 82 Pulse Ox 97 98 Oxygen Delivery Method Room Air Room Air 05/03/24 12:44 05/03/24 12:44 05/03/24 13:00 Temperature 98 F 98 F Temperature Source Oral Oral Pulse Rate 89 103 H Respiratory Rate 16 28 H Respiratory Effort Respiratory Pattern Blood Pressure 90/76 127/68 H Blood Pressure Mean 80 87 Pulse Ox 98 98 Oxygen Delivery Method Room Air Room Air Room Air 05/03/24 15:00 05/03/24 15:21 Temperature 100 F H Temperature Source Pulse Rate 91 99 Respiratory Rate 14 23 H Respiratory Effort Respiratory Pattern Blood Pressure 103/62 113/68 Blood Pressure Mean 75 83 Pulse Ox 97 97 Oxygen Delivery Method Room Air MDM MDM MDM Narrative Medical decision making narrative: Differential diagnosis for his hypotension includes dehydration versus intravascular volume depletion versus medication side effect if he is taking his lisinopril. Given his initial hypotension and tachycardia, sepsis workup was started. He will be swabbed for COVID, influenza and RSV. He may have a pneumonia as well in addition to other electrolyte imbalance or dehydration. I will check him for urinary tract infection as well. EKG was obtained and interpreted by myself independently as normal sinus rhythm at 100 bpm without ectopy or acute ST changes. No STEMI. I reviewed his laboratory work and he has an elevated white count/leukocytosis of 14.9 with hemoglobin 13.2, hematocrit 40.6, platelet count normal at 228. PT and INR are grossly unremarkable APTT normal at 30.5. Sodium normal at 139 with potassium 3.9. BUN is elevated at 30 with creatinine 2.5 consistent with RAYMOND. Glucose is elevated at 131. Lactic acid is elevated at 2.3, but this may be more of a dehydration factor given his elevated creatinine above baseline when compared to prior labs. Urinalysis is positive for UTI with greater than 100 WBCs. This was sent for culture and he was started on Rocephin intravenously. He was also bolused normal saline at least 2.5 L given his lactic acidosis. Chest x-ray 1 view interpreted by myself independently shows no pneumonia, no pneumothorax. I reviewed the radiology report which confirms my independent interpretation and comments on bibasilar atelectasis. Additionally, I reviewed his respiratory swabs he is negative for COVID, influenza, and RSV. I discussed the patient with Dr. Wilson for admission for his UTI and weakness with lactic acidosis. Patient now has elevated temperature of 100 ?F. He was administered Tylenol. Dr. Wilson is admitted him to the medical surgical floor. Patient is in stable condition. History & Record Review Discussion w/independent historian: Patient and Friend Additional record(s) reviewed:: Prior labs Lab Data Attestation: I reviewed the patient's lab results. Labs: Laboratory Results - last 24 hr 05/03/24 05/03/24 05/03/24 12:20 12:27 13:26 WBC 14.9 H RBC 4.68 Hgb 13.2 Hct 40.6 MCV 86.8 MCH 28.2 MCHC 32.5 RDW Std Deviation 45.6 H RDW Coeff of Alan 14.3 Plt Count 228 MPV 10.8 Immature Gran % (Auto) 0.800 Neut % (Auto) 77.5 H Lymph % (Auto) 6.8 L [place] % (Auto) 11.7 H Eos % (Auto) 2.7 Baso % (Auto) 0.5 Absolute Neuts (auto) 11.6 H Absolute Lymphs (auto) 1.01 Nucleated RBC % 0 Diff Path Review July foll PT 12.7 INR 0.9 APTT 30.5 Sodium 139 Potassium 3.9 Chloride Direct 104 Carbon Dioxide 22.5 Anion Gap 13 BUN 30 H Creatinine 2.5 H Estim Creat Clear Calc 27.16 Est GFR (MDRD) Non-Af 26 L BUN/Creatinine Ratio 11.9 Glucose 135 H Lactic Acid 2.3 H* Calcium 10.3 Total Bilirubin 0.29 AST 23 ALT 20 Alkaline Phosphatase 81 Total Protein 6.9 Albumin 3.8 Globulin 3.1 Albumin/Globulin Ratio 1.3 Urine Color Yellow Urine Clarity Cloudy Urine pH 5.0 Ur Specific Wayne 1.010 Urine Protein 100 H Urine Glucose (UA) Normal Urine Ketones Negative Urine Occult Blood 50 H Urine Nitrite Negative Urine Bilirubin Negative Urine Urobilinogen Normal Ur Leukocyte Esterase 500 H Urine RBC 5-10 SEEN Urine WBC >100 SEEN Ur Squamous Epith Cells 0 SEEN Amorphous Sediment 1+ URATE Urine Bacteria 0 SEEN Waxy Casts 0-5 SEEN H WBC Casts 5-10 SEEN Urine Mucus 0 SEEN Radiography Diagnostic Testing: Clinical Impression(s) from Imaging Studies Chest X-Ray 05/03/24 12:17 IMPRESSION: Poor inspiratory effort. Mild degree of bibasilar linear atelectasis. Reading Location: [id number] Discharge Plan Dx/Rx/DC Orders Clinical Impression: Generalized weakness, UTI (urinary tract infection), Lactic acidosis, Acute kidney injury Disposition Disposition: [facility]
--- NOTE | 2024-05-03 12:17 | RAD_ITS ---
PROCEDURE: CHEST 1 VIEW (PORTABLE) REASON FOR EXAM: Weakness and fatigue. TECHNIQUE: Frontal view of the chest. COMPARISON: February 16, 2024. FINDINGS: Poor inspiratory effort. The heart size is normal. Mild degree of linear atelectasis at the lung bases. RAD/Chest 1 View (Portable) IMPRESSION: Poor inspiratory effort. Mild degree of bibasilar linear atelectasis. Reading Location: [facility]
[2024-05-03 12:32] LABS: Absolute Lymphocyte Count 1.01 X10^3/uL (0.83-4.51); Absolute Neutrophil Count 11.6 X10^3/uL (2.0-7.7); Basophil# 0.07 X10^3/uL; Basophil% 0.5 % (0-1); Eosinophils% 2.7 % (0-5); Hematocrit 40.6 % (40-54); Hemoglobin 13.2 g/dL (13.0-16.5); Lymphocyte # 1.01 X10^3/ul (0.83-4.51); Lymphocyte % 6.8 % (19-41); Mean Corp Hgb Conc 32.5 g/dL (32-36); Mean Corpuscular Hgb 28.2 pg (27.0-32.0); Mean Corpuscular Volume 86.8 fL (80-94); Mean Platelet Vol. 10.8 fl (6.2-12.0); Monocyte# 1.75 X10^3/uL; Monocyte% 11.7 % (0-10); NRBC Flagged by Analyzer 0 % (0-5); Neutrophil # 11.58 X10^3/uL (2.7-7.7); Neutrophil % 77.5 % (47-70); POSITIVE DIFFERENTIAL YES; Platelet Count 228 K/mm3 (150-450); RBC Distribution Width CV 14.3 % (11.6-14.6); RBC Distribution Width SD 45.6 fl (35.1-43.9); Red Blood Count 4.68 M/mm3 (4.6-6.2); White Blood Count 14.9 K/mm3 (4.4-11.0)
[2024-05-03 12:35] LABS: Differential Indicated SCAN CRITERIA MET
[2024-05-03 12:42] LABS: International Normalized Ratio 0.9; Prothrombin Time (Protime)PT. 12.7 SECONDS (11.7-14.9)
[2024-05-03] MEDS: 0.9% Normal Saline (1000mL) 1,000 ML 999 ML IV ×2 (12:42→13:46)
[2024-05-03 12:47] LABS: Partial Thromboplast Time 30.5 Seconds (24.1-36.2)
[2024-05-03 12:59] LABS: ALB/GLOB Ratio 1.3 RATIO (0.9-2.4); AST(SGOT) 23 U/L (<=37); Alanine Aminotransfer ALT/SGPT 20 U/L (<=46); Albumin, Serum 3.8 g/dL (3.4-4.8); Alkaline Phosphatase 81 U/L (40-129); Anion Gap 13 (5-15); BUN 30 mg/dL (4-19); BUN/Creat Ratio 11.9 RATIO (10-20); Calcium 10.3 mg/dL (7.6-11.0); Carbon Dioxide 22.5 mmol/L (22.0-29.0); Chloride 104 mmol/L (96-108); Creatinine, Serum 2.5 mg/dL (0.8-1.3); EST Glomerular Filtration Rate 26 (>60); Estimated Creatinine Clearance 27.16 ml/min; Globulin 3.1 g/dL (2.2-4.2); Glucose 135 mg/dL (70-99); Potassium 3.9 mmol/L (3.3-5.1); Protein, Total 6.9 g/dL (5.9-8.4); Sodium Level 139 mmol/L (133-145); Total Bilirubin 0.29 mg/dL (0.00-1.30)
[2024-05-03 13:42] LABS: Bacteria 0 SEEN /hpf (None Seen); Mucous, Urine 0 SEEN /hpf (<or=2+); Squamous Epithelial Cells - UA 0 SEEN /hpf (0-5)
[2024-05-03 13:45] LABS: Color, Urine Yellow (Yellow); Glucose, Dipstick Normal (Normal); Ketone-Dipstick Negative (Negative); Leukocyte Esterase-Dipstick 500 /ul (Negative); Nitrite-Dipstick Negative (Negative); Occult Blood-Urine 50 /ul (Negative); Protein-Dipstick 100 mg/dl (Negative); Urine Bilirubin Dipstick Negative (Negative); Urine Clarity Cloudy (Clear); Urine Urobilinogen Normal (Normal)
[2024-05-03 13:54] LABS: White Blood Cells >100 SEEN /hpf (0-5)
[2024-05-03 14:01] LABS: Red Blood Cells-Urine 5-10 SEEN /hpf (0-5)
[2024-05-03 14:03] LABS: White Cell Cast 5-10 SEEN /lpf (None Seen)
[2024-05-03 14:05] LABS: Amorphous Sediment 1+ URATE; Waxy Cast-Urine 0-5 SEEN /lpf (None Seen)
[2024-05-03] MEDS: Ceftriaxone 1 GM/50 ML BAG IV (15:03)
[2024-05-03] MEDS: 0.9% Normal Saline (500mL Bag) 500 ML 999 ML IV (15:20)
--- NOTE | 2024-05-03 15:41 | ED.RN ---
pt received total of [address] Meade for sepsis protocol.
--- NOTE | 2024-05-03 16:18 | PCM.HP.STD ---
[facility] - General General Date of Service: 05/03/24 Chief Complaint: Weakness. incontinence. [facility] Narrative SIERRA GARCÍA, is a 79 M who presents with weakness and incontinence. Symptoms been going on for several days now and patient is unable to adequately care for himself at home. So he presented to the emergency room and was found to have a urinary tract infection on his urinalysis and received ceftriaxone. Additionally he was noted to be in [place] with a creatinine of 2.5. His lactic acid was 2.3 the patient remained hemodynamically stable. He did receive IV fluids in the emergency room. Patient notes chronic weak urinary stream and difficulty starting a stream at times and most recently the incontinence. He has never had a urinary tract infection before. [facility] Medical History Leo hereditary optic atrophy Back pain Pneumonia, pneumococcal Pneumonia Arthritis HTN (hypertension) Hypothyroid Home Medications ?Medication ?Instructions ?Recorded ?Last Taken ?Type levothyroxine 50 mcg tablet 50 mcg PO DAILY thyroid 10/11/18 Unknown History lisinopril 10 5 - 6.25 mg PO DAILY PRN blood 10/11/18 Unknown History mg-hydrochlorothiazide 12.5 mg pressure tablet paroxetine HCl 30 mg tablet 30 mg PO DAILY mental health 10/11/18 Unknown History simvastatin 10 mg tablet 10 mg PO DAILY cholesterol 10/11/18 Unknown History gabapentin 100 mg capsule 100 mg PO TID PRN pain 02/16/24 Unknown History rslxg-[id number]-[id number]-epa-fish oil-vit D3 1 cap PO DAILY 02/16/24 Unknown History 350 mg-400 mg-1,000 unit capsule Allergy/AdvReac Type Severity Reaction Status Date / Time No Known Allergies Allergy Verified 05/03/24 11:17 Family History Mother Leo's hereditary optic atrophy Aunt Leo's hereditary optic atrophy Uncle Leo's hereditary optic atrophy Social History household members: none Smoking Status: Former smoker substance use type: does not use ROS ROS Narrative No fever or chills. No nausea or vomiting. Legally blind. All review of systems were negative except as mentioned above in the history of present illness and the other review of systems. Vital Signs Vital Signs Vital Signs: 05/03/24 11:14 05/03/24 11:54 05/03/24 11:54 Temperature 35.9 C L 37.1 C Temperature Source Temporal Oral Pulse Rate 114 H 98 Respiratory Rate 18 18 Respiratory Effort Normal Respiratory Pattern Normal Blood Pressure 76/40 L 102/72 Blood Pressure Mean 52 82 Pulse Ox 97 98 Oxygen Delivery Method Room Air Room Air 05/03/24 12:44 05/03/24 12:44 05/03/24 13:00 Temperature 36.6 C 36.6 C Temperature Source Oral Oral Pulse Rate 89 103 H Respiratory Rate 16 28 H Respiratory Effort Respiratory Pattern Blood Pressure 90/76 127/68 H Blood Pressure Mean 80 87 Pulse Ox 98 98 Oxygen Delivery Method Room Air Room Air Room Air 05/03/24 15:00 05/03/24 15:21 Temperature 37.7 C H Temperature Source Pulse Rate 91 99 Respiratory Rate 14 23 H Respiratory Effort Respiratory Pattern Blood Pressure 103/62 113/68 Blood Pressure Mean 75 83 Pulse Ox 97 97 Oxygen Delivery Method Room Air Weight Weight: 81.8 kg Body Mass Index (BMI) 24.4 Physical Exam Narrative - Physical Exam General: Alert, Oriented x3, Cooperative HEENT: Atraumatic, PERRLA, EOMI, Normocephalic Oral: Moist Mucosa, No Gingival or Mucosal Lesions/ Ulcerations Neck: Supple, No JVD, Negative Carotid Bruits Lungs: Clear to auscultation, Normal air movement Cardiovascular: Regular rate, Normal S1, Normal S2, No murmurs Abdomen: Bowel Sounds Present, Soft, Non Tender, Non-Distended, No Hepato-splenomegaly Extremities: No clubbing, No cyanosis, No edema Skin: No rashes, No breakdown Musculoskeletal: No Tenderness to Palpation of Joints or Extremities Neurological: Neuro grossly intact Psych/Mental Status: Normal Affect, Appropriate Results Lab / Micro Data Attestation: I reviewed the patient's lab results. 05/03/24 12:20 05/03/24 12:20 Labs: Laboratory Results - last 24 hr 05/03/24 12:20: WBC 14.9 H, RBC 4.68, Hgb 13.2, Hct 40.6, MCV 86.8, MCH 28.2, MCHC 32.5, RDW Std Deviation 45.6 H, RDW Coeff of Alan 14.3, Plt Count 228, MPV 10.8, Immature Gran % (Auto) 0.800, Neut % (Auto) 77.5 H, Lymph % (Auto) 6.8 L, [place] % (Auto) 11.7 H, Eos % (Auto) 2.7, Baso % (Auto) 0.5, Absolute Neuts (auto) 11.6 H, Absolute Lymphs (auto) 1.01, Nucleated RBC % 0, Diff Path Review July, PT 12.7, INR 0.9, APTT 30.5, Sodium 139, Potassium 3.9, Chloride Direct 104, Carbon Dioxide 22.5, Anion Gap 13, BUN 30 H, Creatinine 2.5 H, Estim Creat Clear Calc 27.16, Est GFR (MDRD) Non-Af 26 L, BUN/Creatinine Ratio 11.9, Glucose 135 H, Calcium 10.3, Total Bilirubin 0.29, AST 23, ALT 20, Alkaline Phosphatase 81, Total Protein 6.9, Albumin 3.8, Globulin 3.1, Albumin/Globulin Ratio 1.3 05/03/24 12:27: Lactic Acid 2.3 H* 05/03/24 13:26: Urine Color Yellow, Urine Clarity Cloudy, Urine pH 5.0, Ur Specific [place] 1.010, Urine Protein 100 H, Urine Glucose (UA) Normal, Urine Ketones Negative, Urine Occult Blood 50 H, Urine Nitrite Negative, Urine Bilirubin Negative, Urine Urobilinogen Normal, Ur Leukocyte Esterase 500 H, Urine RBC 5-10 SEEN, Urine WBC >100 SEEN, Ur Squamous Epith Cells 0 SEEN, Amorphous Sediment 1+ URATE, Urine Bacteria 0 SEEN, Waxy Casts 0-5 SEEN H, WBC Casts 5-10 SEEN, Urine Mucus 0 SEEN Micro: Microbiology 05/03/24 13:00 Mucosa - Nose SARS-CoV-2, Influenza & RSV (PCR) - Final Imaging Radiology Impression Chest X-Ray 05/03/24 12:17 IMPRESSION: Poor inspiratory effort. Mild degree of bibasilar linear atelectasis. Reading Location: [facility] Assessment & Plan Assessment/Plan (1) UTI (urinary tract infection): PLAN: I suspect due to chronic urinary retention Due to BPH. Continue antibiotics with ceftriaxone Follow-up urine culture and adjust antibiotics accordingly. (2) Acute kidney injury: PLAN: I suspect more prerenal than anything. Continue with IV fluids. Check kidney and bladder ultrasound to make sure there is no postobstructive component. Hold lisinopril/HCTZ (3) BPH (benign prostatic hyperplasia): PLAN: Suspect given the patient's history of weak urinary stream Will start tamsulosin. I recommend the patient follow-up with his primary care doctor in the coming weeks and if he still having issues regards to urinary retention that he may need to be referred to urology. 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 Hypothyroidism: Continue levothyroxine. Hyperlipidemia: Continue with statin Depression: Continue with paroxetine VTE prophylaxis with enoxaparin CODE STATUS: Addressed with the patient. Full code. Charges/Coding Visit Charges Inpatient E&M: 73748 Init Hosp L3
[2024-05-03] MEDS: Acetaminophen 325 MG Tablet 650 MG PO (16:35)
--- NOTE | 2024-05-03 17:57 | US_ITS ---
PROCEDURE: KIDNEY AND BLADDER REASON FOR EXAM: 79-year-old male, acute kidney injury. TECHNIQUE: Ultrasound of the kidneys and bladder COMPARISON: None. FINDINGS: Normal renal sizes, parenchymal thicknesses, and echotextures. No hydronephrosis. No large solid renal masses. Small right simple renal cyst. Grossly normal bladder contour. No large bladder wall mass visualized. RIGHT Kidney Size: 12.0 x 5.5 x 7.2 cm Volume: 249 mL Parenchymal Thickness: 17 mm (>14mm is normal) Cortical Thickness (if discernible): N/A (>6mm is normal) LEFT Kidney Size: 11.2 x 4.9 x 6.5 cm Volume: 184 mL Parenchymal Thickness: 17 mm (>14mm is normal) Cortical Thickness (if discernible): N/A (>6mm is normal) BLADDER: Prevoid volume: 102.8 mL Postvoid volume: N/A mL US/Kidney and Bladder IMPRESSION: NORMAL RENAL AND BLADDER ULTRASOUND. Reading Location: [id number]
[2024-05-03] MEDS: 0.9% Normal Saline (1000mL) 1,000 ML 150 ML IV (18:42)
[2024-05-03] MEDS: Tamsulosin HCl 0.4 MG Capsule PO (19:43)
[2024-05-03] MEDS: Atorvastatin Calcium 10 MG Tablet 5 MG PO (21:31)
[2024-05-03 23:41] LABS: Lactic Acid < 1.0 mmol/L (0.0-2.0)
[2024-05-04 03:21] VITALS: BP 143/86; PULSE 95; RESP 20; TEMP 36.7; O2SAT 97
[2024-05-04 05:52] LABS: Absolute Lymphocyte Count 1.05 X10^3/uL (0.83-4.51); Absolute Neutrophil Count 8.4 X10^3/uL (2.0-7.7); Basophil# 0.06 X10^3/uL; Basophil% 0.5 % (0-1); Eosinophil# 0.59 X10^3/uL; Eosinophils% 5.1 % (0-5); Hematocrit 36.5 % (40-54); Lymphocyte # 1.05 X10^3/ul (0.83-4.51); Lymphocyte % 9.1 % (19-41); Mean Corp Hgb Conc 32.9 g/dL (32-36); Mean Corpuscular Hgb 28.5 pg (27.0-32.0); Mean Corpuscular Volume 86.7 fL (80-94); Mean Platelet Vol. 11.3 fl (6.2-12.0); Monocyte# 1.28 X10^3/uL; Monocyte% 11.1 % (0-10); NRBC Flagged by Analyzer 0 % (0-5); Neutrophil # 8.44 X10^3/uL (2.7-7.7); Neutrophil % 73.7 % (47-70); Platelet Count 185 K/mm3 (150-450); RBC Distribution Width CV 14.5 % (11.6-14.6); RBC Distribution Width SD 45.9 fl (35.1-43.9); Red Blood Count 4.21 M/mm3 (4.6-6.2); White Blood Count 11.5 K/mm3 (4.4-11.0)
[2024-05-04] MEDS: Levothyroxine 50 MCG Tablet PO (05:57)
[2024-05-04 06:47] LABS: Anion Gap 14 (5-15); BUN 29 mg/dL (4-19); BUN/Creat Ratio 10.8 RATIO (10-20); Carbon Dioxide 18.6 mmol/L (22.0-29.0); Chloride 111 mmol/L (96-108); Creatinine, Serum 2.7 mg/dL (0.8-1.3); EST Glomerular Filtration Rate 24 (>60); Glucose 103 mg/dL (70-99); Sodium Level 143 mmol/L (133-145)
[2024-05-04] MEDS: Enoxaparin 30 MG/0.3 ML Syringe SC (08:55)
[2024-05-04] MEDS: PARoxetine 10 MG Tablet 30 MG PO (08:56)
[2024-05-04] MEDS: 0.9% Saline Lock 10 ML Syringe IV ×2 (09:01→20:13)
[2024-05-04] MEDS: Ceftriaxone 1 GM/50 ML BAG IV (09:01)
[2024-05-04 11:36] VITALS: O2SAT 97
[2024-05-04 11:37] VITALS: BP 111/68; PULSE 53; RESP 18; TEMP 36.6; O2SAT 96
[2024-05-04 15:04] VITALS: BP 153/88; PULSE 70; RESP 16; TEMP 36.9; O2SAT 96
--- NOTE | 2024-05-04 15:30 | CASEMGMT ---
RN CM Face to Face with patient for initial transition planning/care coordination assessment. RN CM introduced self and role at [facility]. Patient lying in bed, alert and oriented. Patient willing to participate in assessment and is able to answer all questions appropriately. Care providers, pharmacy, and demographics verified. Strata: 3 PCP: Rose Specialists: none Preferred Pharmacy: [facility] Insurance: [facility], [email or web address] Prescription Benefit: yes Living Will/HPOA: yes, friend Claus Blair LNOK: Friend Living Arrangements: Patient lives alone in a single story home with 1 step to enter. Patient is independent at home. Transportation: Friend DME/HHC: Patient has grab bars and walker at home. No previous HHC or SNF Patient wishes to discharge home, denies need for home health at this time. Patient states he has no further needs or concerns at this time. CM to follow for discharge planning needs that may arise. Disposition Plan: Patient to discharge home with family support and follow-up plans in place. Tracey HAGEN, RN, CM
[2024-05-04] MEDS: Tamsulosin HCl 0.4 MG Capsule PO (18:25)
--- NOTE | 2024-05-04 19:02 | PN.HOSP_ITS ---
Reason for Visit Reason for Visit: Diagnoses Acute kidney failure, unspecified (05/03/24) Urinary tract infection, site not specified (05/03/24) Benign prostatic hyperplasia without lower urinary tract symptoms (05/03/24) Subjective Subjective Patient was seen and examined today, his white blood cell count was 11.5, creatinine was elevated at 2.7. Patient does not appear to be in any distress. Objective Data Objective Data Vital Signs: Vital Signs Temp Pulse Resp BP Pulse Ox O2 Del Method 98.4 F 70 16 153/88 H 96 Room Air 05/04/24 15:04 05/04/24 15:04 05/04/24 15:04 05/04/24 15:04 05/04/24 15:04 05/04/24 15:04 Oxygen Delivery Method Room Air Weight: 77.7 kg Body Mass Index (BMI) 23.8 Intake & Output: Intake and Output for Last 24 Hours 05/02/24 05/03/24 05/04/24 23:59 23:59 23:59 Intake Total 2790 / 2790 3930 / 3930 Output Total 900 / 900 4450 / 4450 Balance 1890 / 1890 -520 / -520 Lab / Micro Data 05/04/24 05:15 05/04/24 05:15 Labs: Laboratory Results - last 24 hr 05/03/24 22:46: Lactic Acid < 1.0 05/04/24 05:15: WBC 11.5 H, RBC 4.21 L, Hgb 12.0 L, Hct 36.5 L, MCV 86.7, MCH 28.5, MCHC 32.9, RDW Std Deviation 45.9 H, RDW Coeff of Alan 14.5, Plt Count 185, MPV 11.3, Immature Gran % (Auto) 0.500, Neut % (Auto) 73.7 H, Lymph % (Auto) 9.1 L, [place] % (Auto) 11.1 H, Eos % (Auto) 5.1 H, Baso % (Auto) 0.5, Absolute Neuts (auto) 8.4 H, Absolute Lymphs (auto) 1.05, Nucleated RBC % 0, Sodium 143, Potassium 4.0, Chloride Direct 111 H, Carbon Dioxide 18.6 L, Anion Gap 14, BUN 29 H, Creatinine 2.7 H, Estim Creat Clear Calc 24.40, Est GFR (MDRD) Non-Af 24 L , BUN/Creatinine Ratio 10.8, Glucose 103 H, Calcium 10.0 Micro: Microbiology 05/03/24 13:26 Urine, Clean Catch Urine Culture - Preliminary Culture exhibits no growth. 05/03/24 13:26 Urine, Clean Catch Urine Culture - Preliminary Presumptive E. coli Mixed Gram Positive Organisms 05/03/24 13:00 Mucosa - Nose SARS-CoV-2, Influenza & RSV (PCR) - Final Radiography Diagnostic Testing: Radiology Impression Renal Ultrasound 05/03/24 17:57 IMPRESSION: NORMAL RENAL AND BLADDER ULTRASOUND. Reading Location: [facility] Physical Exam Const alert, oriented x3 and no apparent distress General Appearance: cooperative, well kempt and well developed Orientation / Consciousness: awake, oriented to person, oriented to place and oriented to time HEENT normocephalic, head/scalp atraumatic and moist oral mucous membranes Eyes PERRL, EOMs intact bilaterally and conjunctivae normal Neck supple, no JVD, thyroid normal and no carotid bruits General: trachea midline Resp normal respiratory effort, no retractions, no use of accessory muscles and clear to auscultation bilaterally Auscultation: Negative for rales, rhonchi or wheezes Cardio regular rate, regular rhythm, S1 normal heart sound, S2 normal heart sound, no murmurs, no rub and no gallops GI normal to inspection, nondistended, normoactive bowel sounds, soft to palpation, non-tender and non-distended Extremity no clubbing, cyanosis or edema Skin no rashes or lesions noted General Skin Exam: no breakdown Neuro oriented x3, CN's II-XII intact bilaterally, no focal motor deficits and no sensory deficits noted Sensorium / Orientation: awake and alert Speech: speech normal Psych affect normal Assessment & Plan Assessment/Plan (1) UTI (urinary tract infection): PLAN: Plan 1. Acute cystitis-continue IV ceftriaxone #2 acute kidney injury-BMP will be rechecked tomorrow, I have elected to administer IV fluids #3 benign prostatic hypertrophy-patient is now on Flomax #4 hypothyroidism-patient is on Synthroid Total clinical time spent by myself addressing patient's medical issues, reviewing all of his data, and collaborating with patient's care team: 35 minutes Charges/Coding Visit Charges Inpatient E&M: 00591 Subs Hosp L2
[2024-05-04 19:50] VITALS: BP 137/97; PULSE 121; RESP 18; TEMP 36.6; O2SAT 95
[2024-05-04] MEDS: 0.9% Normal Saline (1000mL) 1,000 ML 75 ML IV (20:10)
[2024-05-04] MEDS: Atorvastatin Calcium 10 MG Tablet 5 MG PO (20:12)
[2024-05-05 02:10] VITALS: BP 150/94; PULSE 61; RESP 14; TEMP 36.6; O2SAT 96
[2024-05-05 05:55] VITALS: BP 153/91; PULSE 65; RESP 16; TEMP 36.6; O2SAT 98
[2024-05-05] MEDS: Levothyroxine 50 MCG Tablet PO (06:00)
[2024-05-05 06:43] LABS: Absolute Lymphocyte Count 1.22 X10^3/uL (0.83-4.51); Absolute Neutrophil Count 5.1 X10^3/uL (2.0-7.7); Basophil# 0.05 X10^3/uL; Basophil% 0.6 % (0-1); Eosinophil# 0.67 X10^3/uL; Eosinophils% 8.6 % (0-5); Hematocrit 34.7 % (40-54); Hemoglobin 11.4 g/dL (13.0-16.5); Lymphocyte # 1.22 X10^3/ul (0.83-4.51); Lymphocyte % 15.6 % (19-41); Mean Corp Hgb Conc 32.9 g/dL (32-36); Mean Corpuscular Hgb 28.4 pg (27.0-32.0); Mean Corpuscular Volume 86.3 fL (80-94); Mean Platelet Vol. 12.6 fl (6.2-12.0); Monocyte# 0.76 X10^3/uL; Monocyte% 9.7 % (0-10); NRBC Flagged by Analyzer 0 % (0-5); Neutrophil # 5.08 X10^3/uL (2.7-7.7); Neutrophil % 65.2 % (47-70); Platelet Count 189 K/mm3 (150-450); RBC Distribution Width CV 14.6 % (11.6-14.6); RBC Distribution Width SD 46.5 fl (35.1-43.9); Red Blood Count 4.02 M/mm3 (4.6-6.2); White Blood Count 7.8 K/mm3 (4.4-11.0)
[2024-05-05 07:06] LABS: Anion Gap 11 (5-15); BUN 27 mg/dL (4-19); BUN/Creat Ratio 12.2 RATIO (10-20); Calcium 10.2 mg/dL (7.6-11.0); Carbon Dioxide 21.7 mmol/L (22.0-29.0); Chloride 111 mmol/L (96-108); Creatinine, Serum 2.18 mg/dL (0.70-1.20); EST Glomerular Filtration Rate 30 (>60); Estimated Creatinine Clearance 30.22 ml/min; Glucose 100 mg/dL (70-99); Sodium Level 144 mmol/L (133-145)
[2024-05-05 08:37] VITALS: BP 158/89; PULSE 65; RESP 16; TEMP 36.6; O2SAT 97
[2024-05-05] MEDS: 0.9% Normal Saline (1000mL) 1,000 ML 75 ML IV (08:41)
[2024-05-05] MEDS: PARoxetine 10 MG Tablet 30 MG PO (08:42)
[2024-05-05] MEDS: Enoxaparin 30 MG/0.3 ML Syringe SC (08:42)
[2024-05-05] MEDS: Ceftriaxone 1 GM/50 ML BAG IV (09:22)
[2024-05-05 09:24] LABS: Pathologist Review Reviewed
--- NOTE | 2024-05-05 14:00 | CHAPLAIN ---
Type of Pastoral Visit _x__ Initial Visit ___ Follow-up Visit ___ On-call Visit ___ General Patient Visit ___ Spiritual Assessment ___ Family Conference ___ Bereavement ___ Rapid Response ___ Code Blue ___ Other (describe below) Pastoral Care Referral From _x__ Patient ___ Family ___ Nurse ___ Physician ___ Combination Machine Tool Setter ___ Assistant Project Manager ___ Other (describe below) Sacrament/Intervention _x__ Active listening ___ Anointing ___ Oriental Orthodox ___ Bereavement ___ Communion ___ B[place]he[place] exploration ___ _x__ Life review _x__ Prayer ___ Reconciliation ___ Sacrament of Sick _x__ Supportive presence ___ Wedding ___ Other (describe below) Pastoral Comments patient states that he remembers this core mounter from a visit about one year ago in the hospital; pt explains his recent health issue and his living arrangement of being home alone; pt explains how he manages with living alone while acknowledging the changing needs may require some other additional help; pt says I am a committed Presbyterian but you can pray for me and that was done
[2024-05-05 14:25] VITALS: BP 151/78; PULSE 95; RESP 16; TEMP 36.8; O2SAT 99
[2024-05-05] MEDS: Tamsulosin HCl 0.4 MG Capsule PO (17:11)
[2024-05-05 17:12] VITALS: BP 143/63; PULSE 58; RESP 16; TEMP 36.6; O2SAT 98
--- NOTE | 2024-05-05 17:29 | PCM.PN.HOSP ---
Reason for Visit Reason for Visit: Diagnoses Acute kidney failure, unspecified (05/03/24) Urinary tract infection, site not specified (05/03/24) Benign prostatic hyperplasia without lower urinary tract symptoms (05/03/24) Subjective Subjective Patient was seen and examined today, his creatinine is improved-it is 2.18 today, white blood cell count is normal. Urine culture grew out mixed gram-positive organisms. Objective Data Objective Data Vital Signs: Vital Signs Temp Pulse Resp BP Pulse Ox O2 Del Method 97.9 F 58 L 16 143/63 H 98 Room Air 05/05/24 17:12 05/05/24 17:12 05/05/24 17:12 05/05/24 17:12 05/05/24 17:12 05/05/24 17:12 Oxygen Delivery Method Room Air Weight: 77.7 kg Body Mass Index (BMI) 23.8 Intake & Output: Intake and Output for Last 24 Hours 05/03/24 05/04/24 05/05/24 23:59 23:59 23:59 Intake Total 2790 / 2790 4250 / 4250 1588.75 / 1588.75 Output Total 900 / 900 6200 / 6200 1600 / 1600 Balance 1890 / 1890 -1950 / -1950 -11.25 / -11.25 Lab / Micro Data 05/05/24 05:28 05/05/24 05:28 Labs: Laboratory Results - last 24 hr 05/03/24 12:20: Diff Path Review Reviewed 05/05/24 05:28: WBC 7.8, RBC 4.02 L, Hgb 11.4 L, Hct 34.7 L, MCV 86.3, MCH 28.4, MCHC 32.9, RDW Std Deviation 46.5 H, RDW Coeff of Alan 14.6, Plt Count 189, MPV 12.6 H, Immature Gran % (Auto) 0.300, Neut % (Auto) 65.2, Lymph % (Auto) 15.6 L, [place] % (Auto) 9.7, Eos % (Auto) 8.6 H, Baso % (Auto) 0.6, Absolute Neuts (auto) 5.1, Absolute Lymphs (auto) 1.22, Nucleated RBC % 0, Sodium 144, Potassium 4.0, Chloride Direct 111 H, Carbon Dioxide 21.7 L, Anion Gap 11, BUN 27 H, Creatinine 2.18 H, Estim Creat Clear Calc 30.22, Est GFR (MDRD) Non-Af 30 L, BUN/Creatinine Ratio 12.2, Glucose 100 H, Calcium 10.2 Micro: Microbiology 05/03/24 13:26 Urine, Clean Catch Urine Culture - Final Presumptive E. coli Mixed Gram Positive Organisms 05/03/24 13:26 Urine, Clean Catch Urine Culture - Final Mixed Gram Positive Organisms 05/03/24 13:00 Blood Culture (Wb) - Anticubital Right Blood Culture - Preliminary No growth in 48 hours. 05/03/24 12:27 Blood Culture (Wb) - Anticubital Left Blood Culture - Preliminary No growth in 48 hours. 05/03/24 13:00 Mucosa - Nose SARS-CoV-2, Influenza & RSV (PCR) - Final Physical Exam Narrative alert, oriented x3 and no apparent distress General Appearance: cooperative, well kempt and well developed Orientation / Consciousness: awake, oriented to person, oriented to place and oriented to time HEENT normocephalic, head/scalp atraumatic and moist oral mucous membranes Eyes PERRL, EOMs intact bilaterally and conjunctivae normal Neck supple, no JVD, thyroid normal and no carotid bruits General: trachea midline Resp normal respiratory effort, no retractions, no use of accessory muscles and clear to auscultation bilaterally Auscultation: Negative for rales, rhonchi or wheezes Cardio regular rate, regular rhythm, S1 normal heart sound, S2 normal heart sound, no murmurs, no rub and no gallops GI normal to inspection, nondistended, normoactive bowel sounds, soft to palpation, non-tender and non-distended Extremity no clubbing, cyanosis or edema Skin no rashes or lesions noted General Skin Exam: no breakdown Neuro oriented x3, CN's II-XII intact bilaterally, no focal motor deficits and no sensory deficits noted Sensorium / Orientation: awake and alert Speech: speech normal Psych affect normal Assessment & Plan Assessment/Plan (1) UTI (urinary tract infection): PLAN: Plan 1. Acute cystitis-continue IV ceftriaxone #2 acute kidney injury-BMP will be rechecked tomorrow #3 benign prostatic hypertrophy-patient is now on Flomax #4 hypothyroidism-patient is on Synthroid Total clinical time spent by myself addressing patient's medical issues, reviewing all of his data, and collaborating with patient's care team: 35 minutes Charges/Coding Visit Charges Inpatient E&M: 11248 Subs Hosp L2
[2024-05-05 20:45] VITALS: BP 160/84; PULSE 77; RESP 16; TEMP 36.6; O2SAT 96
[2024-05-05] MEDS: Atorvastatin Calcium 10 MG Tablet 5 MG PO (20:52)
[2024-05-06 03:30] VITALS: BP 134/85; PULSE 80; RESP 18; TEMP 36.7; O2SAT 100
[2024-05-06 06:01] LABS: Anion Gap 13 (5-15); BUN 28 mg/dL (4-19); BUN/Creat Ratio 15.2 RATIO (10-20); Calcium 10.1 mg/dL (7.6-11.0); Carbon Dioxide 19.5 mmol/L (22.0-29.0); Chloride 111 mmol/L (96-108); Creatinine, Serum 1.85 mg/dL (0.70-1.20); EST Glomerular Filtration Rate 37 (>60); Estimated Creatinine Clearance 35.61 ml/min; Glucose 99 mg/dL (70-99); Potassium 3.6 mmol/L (3.3-5.1); Sodium Level 143 mmol/L (133-145)
[2024-05-06 06:20] VITALS: BP 157/96; PULSE 67; RESP 16; TEMP 36.5; O2SAT 97
[2024-05-06] MEDS: Levothyroxine 50 MCG Tablet PO (06:25)
[2024-05-06 10:00] VITALS: RESP 18
--- NOTE | 2024-05-06 10:06 | DCINST_ITS ---
Discharge Instructions Diet Discharge Diet: No restrictions DC O2, CPAP, BIPAP needs Home O2 Discharge instructions: No Dressing / Incision Discharge Activity: Return to Normal Activity Weight Bearing Status: Full weight bearing Follow Up Care Test Results: Test results from this visit will be discussed in further detail at your follow- up appointment, if applicable. Discharge Plan Admission Admit Date/Time: 05/03/24 16:14 Primary Reason for Your Visit: urinary tract infection, acute kidney injury Attending Provider: Aime Sierra Primary Care Provider: Marci Rose Consulting Providers: Sha Wilson Discharge Orders/Prescriptions Prescriptions: New tamsulosin 0.4 mg Capsule 0.8 mg PO DAILY@1730 Qty: 60 0RF cephalexin 500 mg tablet 500 mg PO BID Qty: 14 0RF Rx Instructions: start on 05/07/24 Continued simvastatin 10 MG tablet 10 mg PO DAILY levothyroxine 50 MCG tablet 50 mcg PO DAILY paroxetine HCl 30 MG tablet 30 mg PO DAILY lisinopril-hydrochlorothiazide 10-12.5 tablet 5 - 6.25 mg PO DAILY PRN (Reason: blood pressure) gabapentin 100 mg capsule 100 mg PO TID PRN (Reason: pain) [id number]-fish oil-D3 350 mg-400 mg- 1,000 unit capsule 1 cap PO DAILY Referrals / Follow Up: Marci Rose DO [Primary Care Provider] - Disposition Disposition (needs filled in before D/C Order can be placed): Home, Self Care
--- NOTE | 2024-05-06 10:14 | PCM.DC.SUM ---
Providers Date of Admission: 05/03/24 Date of Discharge: 05/06/24 Primary Care Physician: Dr. Marci Rose DO Reason For Visit: RAYMOND. UTI. Diagnosis Discharge Diagnosis (1) UTI (urinary tract infection): Status: Acute Code(s): N39.0 - Urinary tract infection, site not specified Plan #1 sepsis secondary to acute cystitis #2. Acute cystitis-continue IV ceftriaxone #3 acute kidney injury-BMP will be rechecked tomorrow #4 benign prostatic hypertrophy-patient is now on Flomax #5 hypothyroidism-patient is on Synthroid Total clinical time spent by myself addressing patient's medical issues, reviewing all of his data, and collaborating with patient's care team: 35 minutes Medications at Discharge Home Medications levothyroxine 50 mcg tablet 50 mcg PO DAILY thyroid 10/11/18 lisinopril 10 mg-hydrochlorothiazide 12.5 mg tablet 5 - 6.25 mg PO DAILY PRN blood pressure 10/11/18 paroxetine HCl 30 mg tablet 30 mg PO DAILY mental health 10/11/18 simvastatin 10 mg tablet 10 mg PO DAILY cholesterol 10/11/18 gabapentin 100 mg capsule 100 mg PO TID PRN pain 02/16/24 goetd-0r-szm-epa-fish oil-vit D3 350 mg-400 mg-1,000 unit capsule 1 cap PO DAILY supplement 02/16/24 cephalexin 500 mg tablet 500 mg PO BID #14 tabs 05/06/24 tamsulosin 0.4 mg capsule 0.8 mg (2 x 0.4 mg) PO DAILY@1730 #60 caps 05/06/24 Hospital Course Operations None Procedures None Summary of Care Provided Minutes Spent on Discharge: 31 Hospital Course: 79-year-old white male was seen in the emergency room at [facility] with generalized weakness, fatigue, and malaise. Patient also complains of leakage of urine, he states that occasionally he cannot make it to the bathroom and leaks urine. Workup in the emergency room included a CBC which showed an elevated white blood cell count of 14.9, lactic acid was elevated at 2.3, creatinine was elevated at 2.5 and BUN was 30. Urinalysis showed more than 100 white cells, 5-10 RBCs and no bacteria. Chest x-ray showed no acute pathology. Patient was admitted to PCU for sepsis, urinary tract infection, and acute kidney injury, he was given IV antibiotics and fluids, labs were monitored. Urine culture resulted and showing presumptive E. coli and mixed gram-positive organisms. On 05/06/2024, patient was seen and examined: On examination he appeared in good health and spirits. Vital signs as documented. Skin warm and dry and without overt rashes. Neck without JVD, neck was supple, trachea midline, thyroid was normal. Lungs clear bilaterally, normal air movement was noted. Heart exam notable for regular rhythm, normal sounds and absence of murmurs, rubs or gallops. Abdomen unremarkable and without evidence of organomegaly, masses, or abdominal aortic enlargement. Bowel sounds are present, abdomen is not distended. Extremities nonedematous, no cyanosis was noted, no clubbing was noted. Neuro: Cranial nerves II through XII are grossly intact, no focal motor deficits were noted, sensation to light touch and pinprick intact, motor exam 5/5 throughout. Psych: Patient is alert and oriented x3, he does not appear anxious or depressed, he does not appear agitated. Patient was discharged home in stable condition on 05/06/2024 Weight / BMI Weight Weight: 77.7 kg Body Mass Index (BMI) 23.8 ABG / Lab / Microbiology Data 05/05/24 05:28 05/06/24 05:01 Laboratory: Laboratory Results - last 24 hr 05/06/24 05:01: Sodium 143, Potassium 3.6, Chloride Direct 111 H, Carbon Dioxide 19.5 L, Anion Gap 13, BUN 28 H, Creatinine 1.85 H, Estim Creat Clear Calc 35.61, Est GFR (MDRD) Non-Af 37 L, BUN/Creatinine Ratio 15.2, Glucose 99, Calcium 10.1 Microbiology: Microbiology 05/03/24 13:26 Urine, Clean Catch Urine Culture - Final Presumptive E. coli Mixed Gram Positive Organisms 05/03/24 13:26 Urine, Clean Catch Urine Culture - Final Mixed Gram Positive Organisms 05/03/24 13:00 Blood Culture (Wb) - Anticubital Right Blood Culture - Preliminary No growth in 48 hours. 05/03/24 12:27 Blood Culture (Wb) - Anticubital Left Blood Culture - Preliminary No growth in 48 hours. 05/03/24 13:00 Mucosa - Nose SARS-CoV-2, Influenza & RSV (PCR) - Final D/C Instructions Discharge Diet: No restrictions Weight Bearing Status: Full weight bearing DC O2, CPAP, BIPAP Needs Home O2 Discharge instructions: No Meaningful Use Info Meaningful Use Meaningful Use Diagnoses (Choose all that apply): None applicable Ischemic Stroke Statin Dosing Therapy Reference: STATIN DOSE THERAPY REFERENCE: * Patients > 75 years receive moderate or high dose statin therapy. * Patients 75 years or YOUNGER should receive HIGH intensity statin dose unless contraindicated. You will be required to document reason for non-treatment if statin daily dose does not meet guidelines. HIGH DOSE STATIN THERAPY DAILY Atorvastatin > than or = to 40 mg Rosuvastatin > than or = to 20 mg Amlodipine + Atorvastatin > than or = to 2.5/40 mg Ezetimibe + Simvastatin 10/80 mg Simvastatin 80mg Discharge Plan Admission Admit Date/Time: 05/03/24 16:14 Primary Reason for Your Visit: urinary tract infection, acute kidney injury Attending Provider: Aime Sierra Primary Care Provider: Marci Rose Consulting Providers: Sha Wilson Discharge Orders/Prescriptions Prescriptions: New tamsulosin 0.4 mg Capsule 0.8 mg PO DAILY@1730 Qty: 60 0RF cephalexin 500 mg tablet 500 mg PO BID Qty: 14 0RF Rx Instructions: start on 05/07/24 Continued simvastatin 10 MG tablet 10 mg PO DAILY levothyroxine 50 MCG tablet 50 mcg PO DAILY paroxetine HCl 30 MG tablet 30 mg PO DAILY lisinopril-hydrochlorothiazide 10-12.5 tablet 5 - 6.25 mg PO DAILY PRN (Reason: blood pressure) gabapentin 100 mg capsule 100 mg PO TID PRN (Reason: pain) dnbqd-6c-qdq-epa-fish oil-D3 350 mg-400 mg- 1,000 unit capsule 1 cap PO DAILY Referrals / Follow Up: Marci Rose DO [Primary Care Provider] - Disposition Disposition (needs filled in before D/C Order can be placed): Home, Self Care Charges/Coding Visit Charges Inpatient E&M: 43716 Disch Hosp >30min
[2024-05-06] MEDS: Ceftriaxone 1 GM/50 ML BAG IV (10:51)
[2024-05-06] MEDS: Enoxaparin 40 MG/0.4 ML Syringe SC (10:52)
[2024-05-06] MEDS: PARoxetine 10 MG Tablet 30 MG PO (10:52)
[2024-05-06 13:01] VITALS: BP 126/86; PULSE 66; RESP 18; TEMP 37; O2SAT 98
[2024-05-09 04:46] LABS: Lactic Acid 2.3 mmol/L (0.0-2.0)
== END 2024-05-06 13:30 | disposition home or self-care (01) | DRG 872 ==
LOC: ED 16:19 → PCU 17:07
PROVIDERS: Internal Medicine; Emergency Provider Emergency Medicine; PCP Internal Medicine; Visit Provider Internal Medicine
DX: A41.51 Sepsis due to Escherichia coli [E. coli] (principal); N17.9 Acute kidney failure, unspecified; N30.00 Acute cystitis without hematuria; I10 Essential (primary) hypertension; E03.9 Hypothyroidism, unspecified; F32.A Depression, unspecified; E78.5 Hyperlipidemia, unspecified; I95.9 Hypotension, unspecified; H47.22 Hereditary optic atrophy; N40.1 Benign prostatic hyperplasia with lower urinary tract symptoms; R39.12 Poor urinary stream; R33.8 Other retention of urine; Z79.890 Hormone replacement therapy; Z79.899 Other long term (current) drug therapy; Z87.891 Personal history of nicotine dependence
CPT/HCPCS: 36415; 71045; 76770; 80048; 80053; 81001; 83605; 85025; 85610; 85730; 87040; 87086; 87088; 87631; 93005; 97116; 97162; 97530; 99285; A4216

== ENCOUNTER → 2024-06-01 | Outpatient (CLI) | payer MEDICARE, OTHER, SELFPAY | END | disposition home or self-care (01) | LOC: PSN 12:44 | PROVIDERS: PCP Internal Medicine; Referring Provider Internal Medicine; Visit Provider Internal Medicine | DX: J98.4 Other disorders of lung (principal) | CPT/HCPCS: 94060; 94726; 94729 ==

== ENCOUNTER 2024-09-05 18:17 | Emergency (ER) | payer MEDICARE, OTHER, SELFPAY ==
[2024-09-05] VITALS (7 sets, daily range): BP systolic 138–151; BP diastolic 73–91; PULSE 47–78; RESP 16–24; TEMP 36.3–36.8; O2SAT 93–100; BMI 25.7
--- NOTE | 2024-09-05 22:07 | RAD_ITS ---
PROCEDURE: CHEST PA AND LATERAL 09/05/2024 REASON FOR EXAM: COUGH TECHNIQUE: CHEST PA AND LATERAL COMPARISON: 05/17/2024. FINDINGS: The heart is normal in size. The lungs are hypoaerated but clear. Scoliosis. RAD/Chest PA and Lateral IMPRESSION: NO ACUTE FINDINGS. Reading Location: [place] [id number]
--- NOTE | 2024-09-05 22:07 | RAD_ITS ---
PROCEDURE: CHEST PA AND LATERAL 09/05/2024 REASON FOR EXAM: COUGH TECHNIQUE: CHEST PA AND LATERAL COMPARISON: 05/17/2024. FINDINGS: The heart is normal in size. The lungs are hypoaerated but clear. Scoliosis. RAD/Chest PA and Lateral IMPRESSION: NO ACUTE FINDINGS. Reading Location: [place] [id number]
--- NOTE | 2024-09-05 23:04 | EX.ED.DYSGE1 ---
HPI History of Present Illness Chief Complaint: Shortness of Breath Informant: patient and friend Narrative Narrative: Patient is a 79-year-old male with past medical history of hypertension hyperlipidemia and hypothyroidism. He states that he underwent pulmonary function testing a few months ago but never did obtain the results. He states that he believes he has COPD but denies any history of smoking secondhand smoke exposure or chemical exposure. He states that he gets pneumonia often and he reports he has been having increased cough and shortness of breath which concerned him for potential infection and therefore he comes in for evaluation. [facility] Medical History Leo hereditary optic atrophy Back pain Pneumonia, pneumococcal Pneumonia Arthritis HTN (hypertension) Hypothyroid Home Medications ?Medication ?Instructions ?Recorded ?Last Taken ?Type levothyroxine 50 mcg tablet 50 mcg PO DAILY thyroid 10/11/18 Unknown History lisinopril 10 5 - 6.25 mg PO DAILY PRN blood 10/11/18 Unknown History mg-hydrochlorothiazide 12.5 mg pressure tablet paroxetine HCl 30 mg tablet 30 mg PO DAILY mental health 10/11/18 Unknown History simvastatin 10 mg tablet 10 mg PO DAILY cholesterol 10/11/18 Unknown History gabapentin 100 mg capsule 100 mg PO TID PRN pain 02/16/24 Unknown History qorya-4f-qkj-epa-fish oil-vit D3 1 cap PO DAILY supplement 02/16/24 Unknown History 350 mg-400 mg-1,000 unit capsule cephalexin 500 mg tablet 500 mg PO BID #14 tabs 05/06/24 Unknown Rx tamsulosin 0.4 mg capsule 0.8 mg (2 x 0.4 mg) PO DAILY@1730 05/06/24 Unknown Rx #60 caps ipratropium 0.5 mg-albuterol 3 mg 3 ml inhalation 4X/DAY PRN 09/05/24 Unknown Rx (2.5 mg base)/3 mL nebulization Shortness of breath/wheeze #180 mL soln nebulizer and compressor #1 ea 09/05/24 Unknown Rx prednisone 20 mg tablet 20 mg PO DAILY 5 days #5 tabs 09/05/24 Unknown Rx Allergy/AdvReac Type Severity Reaction Status Date / Time No Known Allergies Allergy Verified 09/05/24 18:21 Family History Mother Leo's hereditary optic atrophy Aunt Leo's hereditary optic atrophy Uncle Leo's hereditary optic atrophy Social History household members: none Smoking Status: Former smoker substance use type: does not use ROS ROS ED Constitutional Constitutional ED: Denies chills or fever(s) ENT ENT ED: Denies sore throat Cardiovascular Cardiovascular: Denies chest pain Respiratory/Chest Respiratory/Chest: Reports cough and dyspnea Gastrointestinal Gastrointestinal: Denies abdominal pain, diarrhea, nausea or vomiting Genitourinary Genitourinary ED: Denies dysuria Musculoskeletal Musculoskeletal: Denies back pain or myalgias Integumentary Denies rash Neurologic Neurologic: Denies headache(s) Hematologic/Lymphatic Hematologic/Lymphatic: Denies easy bleeding or easy bruising Allergic/Immunologic Allergic/Immunologic ED: Denies mouth swelling or tongue swelling EXAM Physical Exam Const Vital Signs: 09/05/24 18:17 09/05/24 18:20 09/05/24 21:31 Temperature 97.4 F L 97.4 F L 97.9 F Temperature Source Oral Oral Temporal Pulse Rate 47 L 49 L 70 Respiratory Rate 24 H 24 H 24 H Respiratory Effort Respiratory Depth Respiratory Pattern Blood Pressure 138/73 H 138/73 H 151/91 H Blood Pressure Mean 94 94 111 Pulse Ox 94 93 97 Oxygen Delivery Method Room Air Room Air Room Air 09/05/24 21:32 09/05/24 22:35 09/05/24 23:05 Temperature Temperature Source Pulse Rate 66 78 Respiratory Rate 22 H 16 Respiratory Effort Short of Breath Respiratory Depth Normal Respiratory Pattern Normal Tachypnea Blood Pressure 147/90 H Blood Pressure Mean 109 Pulse Ox 100 Oxygen Delivery Method Room Air 09/05/24 23:08 Temperature 98.3 F Temperature Source Pulse Rate 74 Respiratory Rate 20 H Respiratory Effort Respiratory Depth Respiratory Pattern Blood Pressure 142/74 H Blood Pressure Mean 96 Pulse Ox 100 Oxygen Delivery Method Positive well nourished and well developed General Appearance ED: well developed; Negative for pallor HEENT Reports moist mucous membranes HEENT Narrative: No tongue or lip swelling no oral lesions no airway edema or compromise Eyes PERRL and EOMs intact bilaterally General Eye ED: Negative for scleral icterus Neck supple and no JVD Chest Wall palpation of chest normal Resp Resp Narrative: Patient is in mild respiratory distress with slight tachypnea. Breath sounds are diminished throughout with diffuse expiratory wheeze and bilateral rhonchi in the lower lobe No nasal flaring retractions or accessory muscle use Cardio regular rate and regular rhythm Extremity normal to inspection Extremity Narrative: No asymmetric edema no pitting edema negative Homans' sign bilaterally Neuro oriented x3, CN's II-XII intact bilaterally and no sensory deficits noted Sensorium / Orientation: alert Motor Exam: strength 5/5 throughout Psych mental status grossly normal Skin no rashes or lesions noted General Skin Exam: Negative for jaundice or pallor MDM MDM MDM Narrative Medical decision making narrative: Patient arrived to ER satting in the mid 90s on room air. He had just mild increased work of breathing. Without fever or hypoxia I have low concern for pneumonia and he denies any recent hematuria or hematemesis going against blood loss anemia. In order to rule out pneumonia versus pneumothorax versus pleural effusion I did elect to perform a chest x-ray. This revealed no acute finding. Patient did have expiratory wheeze and rhonchi so he was given oral steroid as well as breathing treatment. On reevaluation he has had improvement of his breath sounds and his work of breathing has improved as well. He remains in no acute distress and still has no need for supplemental oxygen. Therefore there is no need for further workup as an inpatient and he is otherwise safe for discharge with symptomatic medications. History & Record Review Discussion w/independent historian: Patient and Friend Radiography Diagnostic Testing: Clinical Impression(s) from Imaging Studies Chest X-Ray 09/05/24 22:07 IMPRESSION: NO ACUTE FINDINGS. Reading Location: [place] [id number] Chest x-ray as interpreted by the emergency medicine physician reveals no acute infiltrate pneumothorax or pleural effusion Discharge Plan Triage Chief Complaint: Shortness of Breath ED Provider: Demetri Jacobo Dx/Rx/DC Orders Clinical Impression: Dyspnea, Hypertension, Hyperlipidemia, Hypothyroidism Instructions: ED Dyspnea Prescriptions: New ipratropium-albuterol 0.5 mg-3 mg(2.5 mg base)/3 mL solution for nebulization 3 ml inhalation 4X/DAY PRN (Reason: Shortness of breath/wheeze) Qty: 180 0RF prednisone 20 mg tablet 20 mg PO DAILY 5 Days Qty: 5 0RF (DME) nebulizer and compressor Device See Rx Instructions .Route Qty: 1 0RF Rx Instructions: As directed No Action simvastatin 10 MG tablet 10 mg PO DAILY levothyroxine 50 MCG tablet 50 mcg PO DAILY paroxetine HCl 30 MG tablet 30 mg PO DAILY lisinopril-hydrochlorothiazide 10-12.5 tablet 5 - 6.25 mg PO DAILY PRN (Reason: blood pressure) gabapentin 100 mg capsule 100 mg PO TID PRN (Reason: pain) nfurx-7a-blq-epa-fish oil-D3 350 mg-400 mg- 1,000 unit capsule 1 cap PO DAILY tamsulosin 0.4 mg Capsule 0.8 mg PO DAILY@1730 Qty: 60 0RF cephalexin 500 mg tablet 500 mg PO BID Qty: 14 0RF Rx Instructions: start on 05/07/24 Primary Care Provider: Marci Rose Referrals: Marci Rose DO [Primary Care Provider] - Activity Restrictions/Additional Instructions: Your x-ray did not show signs of pneumonia. Your pulmonary function test displays restrictive lung disease which is technically different from COPD and emphysema. You may use the nebulizer as directed to help with symptoms but please talk to your family doctor about a pulmonology referral to discuss further treatment options based on your underlying lung disorder. Please return to the ER should you have any further concerns Print Language: Belarusian Disposition Disposition: Home, Self Care Discharge Date/Time: 09/05/24 23:14
== END 2024-09-05 23:14 | disposition home or self-care (01) ==
PROVIDERS: Emergency Provider Emergency Medicine; PCP Internal Medicine; Visit Provider Emergency Medicine
DX: R06.02 Shortness of breath (principal); R06.2 Wheezing; I10 Essential (primary) hypertension; E78.5 Hyperlipidemia, unspecified; E03.9 Hypothyroidism, unspecified; Z87.01 Personal history of pneumonia (recurrent); Z79.890 Hormone replacement therapy; Z79.899 Other long term (current) drug therapy; Z87.891 Personal history of nicotine dependence
CPT/HCPCS: 71046; 94640; 99282

== ENCOUNTER 2024-09-21 20:44 | Emergency (ER) | payer MEDICARE, OTHER, SELFPAY ==
[2024-09-21 20:45] VITALS: BP 135/92; PULSE 60; RESP 16; TEMP 36.7; O2SAT 95; BMI 25.2
[2024-09-21 20:54] VITALS: O2SAT 93
[2024-09-21 21:28] VITALS: PULSE 100; RESP 25; O2SAT 93
--- OUTSIDE RECORDS SUMMARY | 2024-09-21 21:31 | XMS RPT_ITS | CCD ---
Author Organization [facility] Care Team Providers Care Plant Operations Manager Name Role Phone Marci Rose Unavailable MessengerIzzy Unavailable Unavailable Unavailable Unavailable Marci Rose Unavailable Gravius, Martina Unavailable Unavailable Messenger, Izzy Unavailable Unavailable Unavailable Unavailable Mayank Ball Unavailable Mayank Ball DO Unavailable Gravius, Martina Unavailable Unavailable Messenger, Izzy Unavailable Unavailable Unavailable Unavailable Flora Conway Unavailable Unavailable Cross, Kaylene Unavailable Unavailable Slarb, Angie Unavailable Unavailable Marci Rose DO Unavailable [phone] Mayank Ball DO Unavailable Polo HARPN, Kaylene Unavailable Unavailable Gravius WARD MAID, Martina Unavailable Unavailable Messenger RN, Izzy Unavailable Unavailable Unavailable Unavailable Marci Rose DO Unavailable [phone] Mayank Ball DO Unavailable [phone] James SULFIDE HEAD OPERATOR, Kitty Unavailable Unavailable Gravius WARD MAID, Martina Unavailable Unavailable Jose SULFIDE HEAD OPERATOR, Butch Unavailable Unavailable Cross SULFIDE HEAD OPERATOR, Kaylene Unavailable Unavailable Messenger RN, Izzy Unavailable Unavailable Unavailable Unavailable Slarb SULFIDE HEAD OPERATOR, Angie Unavailable Unavailable Marci Rose DO Unavailable Heena JANG, Kayela Unavailable Unavailable Dr. Marci Rose Primary Care Provider [phone] Dr. Mikey Vang Emergency Provider [phone] Darnell Mccarthy Admit Provider Dr. Darnell Mccarthy Other Provider Dr. Sultana Craven Attending Provider Dr. Sultana Craven Other Provider Zoraida JANG, Flora Unavailable Unavailable Rose CRUZ, Marci Attending Unavailable Rose CRUZ, Marci Referring Unavailable Rose DO, Marci Consulting Unavailable Radha MADISON, Karen Unavailable Unavailable [place] SULFIDE HEAD OPERATOR, Malik Unavailable Unavailable Charly SULFIDE HEAD OPERATOR, MAITE Unavailable Unavailable Jac Sandhu MD Unavailable Dr. Marci Rose Primary Care Provider Dr. Valentin Gonzalez Attending Provider Dr. Sha Baumann Attending Provider [phone] Marci Rose DO Primary Care Provider Lorrie SILVESTRE, Dr. Vuong Attending Provider Dr. Yevgeniy Andrew MD Emergency Provider Dr. Marci Rose DO Attending Provider Dr. Marci Rose DO Referring Provider Karen SILVESTRE, Dr. Whitley Attending Provider Martin Meade MD Emergency Provider Dr. Sha Wilson DO Admit Provider Dr. Sha Wilson DO Other Provider Dr. Aime Sierra DO Attending Provider Dr. Sha Wilson DO Attending Provider Dr. Aime Sierra DO Other Provider Dr. Valentin Gonzalez MD Attending Provider Dr. Marci Rose DO Primary Care Provider Dr. Marci Rose DO Attending Provider Dr. Marci Rose DO Referring Provider Dr. Demetrius Hurt DO Attending Provider [phone] Dr. Demetri Jacobo DO Emergency Provider Rose, Marci Primary Care Unavailable Rose, Marci Referring Unavailable Rose, Marci Attending Unavailable Rose, Marci Primary Care Unavailable Jopperi, Sha Consulting Unavailable Tereletsky, Aime Attending Unavailable Jopperi, Sha Admitting Unavailable Rose, Marci Primary Care Unavailable Rose, Marci Attending Unavailable Rose, Marci Attending Unavailable Rose, Marci Primary Care Unavailable Rose, Marci Referring Unavailable Rose, Marci Primary Care Unavailable Rose, Marci Attending Unavailable Rose, Marci Primary Care Unavailable Jopperi, Sha Admitting Unavailable Tereletsky, Aime Attending Unavailable Jopperi, Sha Consulting Unavailable Tereletsky, Aime Consulting Unavailable Rose, Marci Primary Care Unavailable Jopperi, Sha Attending Unavailable Rose, Marci Primary Care Unavailable Carlos, Valentin Attending Unavailable Rose, Marci Primary Care Unavailable NagaBlack munizapradeioana Attending Unavailabl e Rose, Marci Attending Unavailable Rose, Marci Primary Care Unavailable Rose, Marci Referring Unavailable Roes, Marci Primary Care Unavailable Yevgeniy Andrew Attending Unavailable Rose, Marci Primary Care Unavailable Rose, Marci Referring Unavailable Demetrius Hurt Attending Unavailable Rose, Marci Primary Care Unavailable Demetri Jacobo Attending Unavailable Allergies Allergy Classification Reported Allergen(s) Allergy Type Date of Onset Reaction(s) Facility (1 source) Cat; Translations: [CATS] allergy to substance 9 [facility] Work Phone: Medications Current Medications Medication Drug Class(es) Dates Sig (Normalized) Sig (Original) albuterol 0.833 mg/ml / ipratropium bromide 0.167 mg/ml inhalation solution (1 source) Anticholinergic, beta2-Adrenergic Agonist Start: 09-05-2024 take 1 mL by inhalation four times daily as needed Ipratropium-Albute rol 0.5 mg-3 mg(2.5 mg base)/3 mL solution for nebulization Active 3 mL INHALATION 4 TIMES DAILY as needed for Shortness of breath/wheeze 180 0 September 05, 2024 11:04pm cephalexin 500 mg oral tablet (2 sources) Cephalosporin Antibacterial Start: 05-06-2024 take 1 tablet by mouth twice daily Cephalexin 500 mg tablet Active 500 mg PO TWICE A DAY 14 0 May 06, 2024 1:00am start on 05/07/24 gabapentin 100 mg oral capsule (2 sources) Anti-epileptic Agent Start: 02-16-2024 take 1 capsule by mouth three times daily as needed for pain Gabapentin 100 mg capsule Active 100 mg PO THREE TIMES A DAY as needed for pain February 16, 2024 1:00am levothyroxine sodium 0.05 mg oral tablet (20 sources) l-Thyroxine Start: 10-03-2018 End: 06-15-2022 take 1 tablet by mouth once daily Levothyroxine 50 MCG tablet Active 50 ug PO DAILY October 11, 2018 12:00am thyroid Start: 05-30-2018 take 1 tablet by kaylyn th once daily Synthroid 50 MCG Oral Tablet 1 (one) Tablet qd for 0 days Quantity: 30 {Tablet} Refills: 3 Ordered: 30-May-2018 Marci Rose DO, DO, Kathleen Start : 30-May-2018 Active Dispense as Written Start: 12-24-2017 take 1 tablet by kaylyn th once daily Synthroid 50 MCG Oral Tablet 1 (one) Tablet qd for 0 days Quantity: 30 {Tablet} Refills: 3 Ordered: 24-Dec-2017 Marci Rose DO, DO, Kathleen Start : 24-Dec-2017 Active Dispense as Written Nebulizer And Compressor dev ice (1 source) Start: 09-05-2024 Nebulizer And Compressor device Active 0 .Route 1 September 05, 2024 12:00am As directed Cfzau-9h-Ycm-Epa-Fish Oil-D3 350 mg-400 mg- 1,000 unit capsule (2 sources) Start: 02-16-2024 Kokij-3q-Kzq-E pa-Fish Oil-D3 350 mg-400 mg- 1,000 unit capsule Active 1 NMA PO DAILY February 16, 2024 1:00am supplement Start: 02-16-2024 Uhamq-9u-Jrn-E pa-Fish Oil-D3 350 mg-400 mg- 1,000 unit capsule Active 1 NMA PO DAILY February 16, 2024 1:00am PARoxetine hydrochloride 30 mg oral tablet (20 sources) Serotonin Reuptake Inhibitor Start: 06-05-2015 take 1 tablet by mouth once daily Paroxetine Hcl 30 MG tablet Active 30 mg PO DAILY October 11, 2018 12:00am mental health Comment on above: new dose predniSONE 20 mg oral tablet (5 sources) Start: 09-05-2024 take 1 tablet by mouth once daily Prednisone 20 mg tablet Active 20 mg PO DAILY 5 September 05, 2024 12:00am Start: 03-12-2022 End: 02-16-2024 take 2 tablets by mouth once daily Prednisone 20 mg tablet Discontinued 40 mg PO DAILY 10 March 12, 2022 1:00am February 16, 2024 6:06pm Start: 03-12-2022 take 40 mg by mouth once daily Prednisone Active 40 MG PO DAILY 10 March 12, 2022 1:00am simvastatin 10 mg oral tablet (20 sources) HMG-CoA Reductase Inhibitor Start: 05-24-2018 take 1 tablet by mouth once daily Simvastatin 10 MG tablet Active 10 mg PO DAILY October 11, 2018 12:00am cholesterol Start: 11-22-2017 take 1 tablet by kaylyn th once daily Simvastatin 10 MG Oral Tablet 1 (one) Tablet Tablet qd for 0 days Quantity: 30 {Tablet} Refills: 5 Ordered: 22-Nov-2017 Marci Rose DO, DO, Kathleen Start : 22-Nov-2017 Active tamsulosin hydrochloride 0.4 mg oral capsule (2 sources) alpha-Adrenergic Estephania Start: 05-06-2024 take 2 capsules by mouth once daily Tamsulosin 0.4 mg Capsule Active 0.8 mg PO DAILY@1730 60 0 May 06, 2024 1:00am Completed/Discontinued Medications Medication Drug Class(es) Dates Sig (Normalized) Sig (Original) acetaminophen 325 mg / HYDROcodone bitartrate 5 mg oral tablet (20 sources) Opioid Agonist Start: 10-17-2018 End: 02-09-2019 Start: 10-17-2018 End: 02-09-2019 take 1 tablet by mouth once daily at bedtime Glidden 5-325 MG Oral Tablet 1 (one) Tablet 1 qhs for 0 days Quantity: 30 {Tablet} Refills: 0 Ordered: 09-Feb-2019 Martina Lindquist CMA Start : 17-Oct-2018 End : 09-Feb-2019 Inactive Start: 10-11-2018 End: 10-15-2018 Hydrocodone-Acetaminophen 1 TABLET tablet Discontinued 1 {tbl} PO EVERY 6 HOURS NEEDED as needed for Pain 8 3 0 October 11, 2018 October 13, 2018 12:00am October 15, 2018 12:10am Strain of lumbar region Strain of muscle, fascia and tendon of lower back, initial encounter Start: 10-11-2018 End: 10-15-2018 take 1 tablet by mouth every six hours as needed Hydrocodone-Acetaminophen Discontinued 1 TABLET PO EVERY 6 HOURS NEEDED 8 3 October 11, 2018 October 15, 2018 12:10am [id number] actuat albuterol 0.09 mg/actuat metered dose inhaler (20 sources) beta2-Adrenergic Agonist Start: 03-12-2022 End: 02-16-2024 Albuterol Sulfate 90 mcg/actuation HFA aerosol inhaler Discontinued 2 NMA INHALATION Q4H as needed for shortness of breath or wheezing 8.5 0 March 12, 2022 1:00am February 16, 2024 6:06pm Start: 03-12-2022 take 1 puff(s) by in halation every four hours Albuterol Sulfate Active 2 PUFF INHALATION Q4H 8.5 March 12, 2022 1:00am Start: 01-16-2010 End: 05-27-2011 Start: 01-16-2010 End: 05-27-2011 Start: 01-16-2010 End: 05-27-2011 VENTOLIN HFA, 108 (90 Base)MCG/ACT (Inhalation Aerosol Solution) 2 (two) Aerosol Soln q 6 hr prn for 0 days Quantity: 1 {Aerosol_Soln} Refills: 0 Ordered: 27-May-2011 Izzy Marshall RN Start : 16-Jan-2010 End : 27-May-2011 Inactive Start: 01-16-2010 End: 05-27-2011 VENTOLIN HFA, 108 (90 Base)MCG/ACT (Inhalation Aerosol Solution) 2 (two) Aerosol Soln q 6 hr prn for 0 days Quantity: 1 {Aerosol_Soln} Refills: 0 Ordered: 27-May-2011 Izzy Marshall RN Start : 16-Jan-2010 End : 27-May-2011 Inactive amoxicillin 875 mg / clavula lindsay 125 mg oral tablet (20 sources) Penicillin-class Antibacterial Start: 01-16-2010 End: 05-27-2011 Start: 01-16-2010 End: 05-27-2011 take 1 tablet by mouth twice daily AUGMENTIN, 875-125MG (Oral Tablet) 1 Tablet bid for 0 days Quantity: 28 {Tablet} Refills: 0 Ordered: 27-May-2011 Izzy Marshall RN Start : 16-Jan-2010 End : 27-May-2011 Inactive aspirin 81 mg delayed release oral tablet (20 sources) Platelet Aggregation Inhibitor, Nonsteroidal Anti-inflammatory Drug Start: 06-10-2011 End: 06-04-2012 cholecalciferol 0.05 mg oral capsule (20 sources) Vitamin D Start: 02-26-2020 End: 05-02-2021 take 2 capsules by mouth once daily Cholecalciferol (Vitamin D3) 50 MCG capsule Discontinued 100 ug PO DAILY February 26, 2020 1:00am May 02, 2021 4:57pm vitamin Start: 02-26-2020 End: 05-02-2021 take 100 ug by mouth once daily Cholecalciferol (Vitamin D3) Discontinued 100 MCG PO DAILY February 26, 2020 1:00am May 02, 2021 4:57pm Start: 10-03-2015 Start: 10-03-2015 take [address] [facility] every other day Vitamin D3 2000 UNIT Oral Capsule 1 (one) Capsule qod for 0 days Quantity: 30 {Capsule} Refills: 0 Ordered: 03-Oct-2015 Marci Rose DO, DO, Kathleen Start : 03-Oct-2015 Active dexamethasone 6 mg oral tabl et (20 sources) Corticosteroid Start: 03-06-2020 End: 03-10-2020 Start: 02-26-2020 End: 03-05-2020 take 1 tablet by mouth once daily Dexamethasone 6 MG tablet Discontinued 6 mg PO DAILY 7 7 0 February 26, 2020 1:00am March 03, 2020 1:00am March 05, 2020 1:02am 12 hr guaiFENesin 1200 mg extended release oral tablet (5 sources) Start: 01-08-2021 End: 05-02-2021 take 1 tablet by mouth twice daily, then take 1 tablet by mouth every twelve hours Guaifenesin (Mucinex) 1,200 mg tablet extended release 12hr Discontinued 1200 mg PO TWICE A DAY 14 0 January 08, 2021 12:00am May 02, 2021 4:57pm hydroCHLOROthiazide 12.5 mg / lisinopril 10 mg oral tablet (20 sources) Thiazide Diuretic, Angiotensin Converting Enzyme Inhibitor Start: 01-01-2023 Start: 12-22-2021 Start: 10-09-2020 Start: 10-11-2018 take 5-6.25 mg by mo ut once daily Lisinopril-Hydrochlorothiazide Active 5 - 6.25 MG PO DAILY October 11, 2018 12:00am Start: 05-30-2018 take 5-6.25 mg by mo uth once daily as needed Lisinopril-Hydrochlorothiazide 10-12.5 tablet Active 5 - 6.25 mg PO DAILY as needed for blood pressure October 11, 2018 12:00am Start: 02-24-2017 take 0.5 tablet by m out once daily Lisinopril-Hydrochlorothiazide 10-12.5 MG Oral Tablet 1/2 Tablet qd for 0 days Quantity: 30 {Tablet} Refills: 4 Ordered: 24-Feb-2017 Marci Rose DO, DO, Kathleen Start : 24-Feb-2017 Active Comments: new dose Comment on above: new dose Ibuprofen (5 sources) Nonsteroidal Anti-inflammatory Drug Start: 01-07-2021 End: 05-02-2021 Ibuprofen 100 mg Tablet Discontinued 200 mg EVERY 6 HOURS NEEDED as needed for Pain January 07, 2021 12:00am May 02, 2021 4:57pm takes 1 or 2 tabs as needed for pain Start: 01-07-2021 End: 05-02-2021 Ibuprofen Discontinued 200 M G EVERY 6 HOURS NEEDED January 07, 2021 12:00am May 02, 2021 4:57pm takes 1 or 2 tabs as needed for pain Start: 01-07-2021 End: 05-02-2021 Ibuprofen Discontinued 200 M G EVERY 6 HOURS NEEDED January 06, 2021 11:00pm May 02, 2021 3:57pm takes 1 or 2 tabs as needed for pain levoFLOXacin 500 mg oral tablet (5 sources) Quinolone Antimicrobial Start: 01-08-2021 End: 05-02-2021 take 1 tablet by mouth once daily Levofloxacin 500 mg tablet Discontinued 500 mg PO DAILY 5 0 January 08, 2021 12:00am February 25th, 2022 4:57pm Lisinopril (1 source) Angiotensin Converting Enzyme Inhibitor Start: 11-03-2018 LISINOPRIL TABS 1/2 tab as needed [id number] Mayank Ball DO meclizine hydrochloride 25 mg oral tablet (10 sources) Antiemetic Start: 11-02-2022 End: 11-12-2022 take 1 tablet by mouth every eight hours mometasone furoate 0.05 mg/actuat metered dose nasal spray (20 sources) Corticosteroid Start: 01-27-2010 End: 09-05-2015 Start: 01-27-2010 End: 09-05-2015 NASONEX, 50MCG/ACT (Nasal Howell spension) 2 (two) Suspension qd for 0 days Quantity: 1 {Suspension} Refills: 0 Ordered: 05-Sep-2015 LatoniaHolden preciadoha Start : 27-Jan-2010 End : 05-Sep-2015 Discontinued moxifloxacin 400 mg oral tab let (20 sources) Quinolone Antimicrobial Start: 12-25-2009 End: 01-16-2010 Comment on above: dspense two packs tiZANidine 2 mg oral tablet (16 sources) Central alpha-2 Adrenergic Agonist Start: 05-11-2022 End: 11-12-2022 Problems Active Problems Problem Classification Problem Date Documented Date Episodic/Chronic Acute bronchitis (4 sources) Acute bronchitis due to rhinovirus; Translations: [Acute bronchitis due to rhinovirus] 03-11-2022 Episodic Administrative/social admission (13 sources) Pneumococcal vaccination given; Translations: [Medical examinations/reports status] 07-21-2016 Episodic Cardiac dysrhythmias (18 sources) Irregular heart beat; Translations: [Irregular heartbeat] 11-12-2022 Chronic Cardiac dysrhythmias (12 sources) Sinus tachycardia; Translations: [Tachycardia, unspecified] Episodic Chronic kidney disease (2 sources) Chronic renal insufficiency; Translations: [Chronic kidney disease, unspecified] 02-24-2024 Chronic Chronic obstructive pulmonary disease and bronchiectasis (20 sources) Bronchitis; Translations: [Bronchitis] Resolved: 01-21-2015 Episodic Conditions associated with dizziness or vertigo (20 sources) Dizziness; Translations: [Dizziness and giddiness] 02-07-2018 Episodic Disorders of lipid metabolism (20 sources) Hypercholesterolemia; Translations: [Hypercholesteremia] 02-07-2018 Chronic Comment on above: following the phase 2diet - fish veggies and fruit -- does cerial unfrosted grain squares , or pecan flakes -- pt to try quiona cerial instead Essential hypertension (20 sources) Benign essential hypertension; Translations: [Hypertension, essential, benign] 02-07-2018 Chronic Fluid and electrolyte disorders (5 sources) Hyperkalemia; Translations: [Hyperkalemia] 02-24-2024 Episodic Fracture of lower limb (5 sources) Closed fracture of fibula; Translations: [Unspecified fracture of shaft of right fibula, initial encounter for closed fracture] 05-02-2021 Episodic Hyperplasia of prostate (4 sources) Benign prostatic hyperplasia; Translations: [Benign prostatic hyperplasia without lower urinary tract symptoms] Onset: 5 05-14-2024 Chronic Immunizations and screening for infectious disease (20 sources) Need for prophylactic vaccination and inoculation against influenza; Translations: [Pneumococcal vaccination given] 07-21-2016 Episodic Mood disorders (20 sources) Depressive disorder; Translations: [Depressive disorder] 02-07-2018 Chronic Comment on above: stable Nutritional deficiencies (20 sources) Vitamin D deficiency; Translations: [Vitamin D deficiency] Onset: 4 02-07-2018 Chronic Comment on above: increase d to 4K jose ly Occlusion or stenosis of precerebral arteries (20 sources) Occlusion and stenosis of unspecified carotid artery; Translations: [Carotid artery obstruction] 02-07-2018 Chronic Comment on above: pt decided to ck upd ated dopplers till next [id number]: <50%pt declined baby asa qd Other acquired deformities (1 source) Scoliosis deformity of spine; Translations: [Scoliosis, unspecified] Onset: 9 11-03-2018 Chronic Other acquired deformities (1 source) Spondylolisthesis; Translations: [Spondylolisthesis, lumbar region] Onset: 9 11-03-2018 Chronic Other and unspecified benign neoplasm (20 sources) Hemangioma; Translations: [Hemangioma] 02-07-2018 Episodic Comment on above: reassurrance givenab domen and arm abdomen and arm- daniel ssurance given Other circulatory disease (20 sources) Other specified symptoms and signs involving the circulatory and respiratory systems; Translations: [Abnormal chest sounds] Resolved: 2 01-22-2015 Episodic Other connective tissue disease (20 sources) Pain in lower limb; Translations: [Lower extremity pain, diffuse, unspecified laterality] 02-07-2018 Episodic Comment on above: B/L--- diann hose adn hydration and stretchnot really pain as described by pt just an awaremness B/L--- diann hose adn hydration and stretchwith activity and BETITO are normal -- will ck for stenosis lumbar region Other fractures (20 sources) Fracture of third lumbar vertebra; Translations: [L3 vertebral fracture] 03-06-2020 Episodic Other liver diseases (20 sources) Alkaline phosphatase raised; Translations: [Elevated alkaline phosphatase level] 02-26-2021 Episodic Other lower respiratory disease (20 sources) Hypoxia; Translations: [Hypoxia] Resolved: 1 03-06-2020 Episodic Comment on above: on 2L O2 Other lower respiratory disease (5 sources) Tachypnea; Translations: [Tachypnea, not elsewhere classified] 03-20-2022 Episodic Other lower respiratory disease (5 sources) Hypoxemia; Translations: [Hypoxemia] 02-27-2020 Episodic Other lower respiratory disease (2 sources) Tachypnea, not elsewhere classified; Translations: [Tachypnea] Episodic Other lower respiratory disease (20 sources) Dyspnea; Translations: [SOB (shortness of breath)] Resolved: 3 04-20-2022 Episodic Other lower respiratory disease (20 sources) Wheezing; Translations: [Wheeze] Resolved: 3 09-10-2022 Episodic Other lower respiratory disease (1 source) Shortness of breath; Translations: [Shortness of breath] Onset: 5 Episodic Other lower respiratory disease (1 source) Other disorders of lung; Translations: [Other disorders of lung] Onset: 5 Episodic Other nervous system disorders (20 sources) Claudication Chronic Other nervous system disorders (1 source) Claudication Episodic Other nervous system disorders (20 sources) Abnormal gait; Translations: [Abnormal gait] 10-30-2022 Episodic Other nutritional; endocrine; and metabolic disorders (16 sources) Overweight in adulthood with body mass index of 25 or more but less than 30; Translations: [BMI 25.0-25.9,adult] 11-12-2022 Episodic Other upper respiratory disease (20 sources) Congestion of nasal sinus; Translations: [Sinus congestion] Resolved: 2 01-25-2015 Episodic Other upper respiratory disease (5 sources) Acute bronchospasm; Translations: [Acute bronchospasm] 03-20-2022 Episodic Other upper respiratory disease (2 sources) Acute bronchospasm; Translations: [Acute bronchospasm] Episodic Peripheral and visceral atherosclerosis (20 sources) Intermittent claudication; Translations: [Claudication] Resolved: 2 08-10-2018 Chronic Pleurisy; pneumothorax; pulmonary collapse (20 sources) Atelectasis; Translations: [Atelectasis, bilateral] Resolved: 3 02-26-2021 Episodic Pneumonia (except that caused by tuberculosis or sexually transmitted disease) (20 sources) Pneumonia; Translations: [Pneumonia] Resolved: 2 03-06-2020 Episodic Pneumonia (except that caused by tuberculosis or sexually transmitted disease) (20 sources) Pneumonia (except that caused by tuberculosis or sexually transmitted disease) Residual codes; unclassified (20 sources) Memory impairment; Translations: [Memory impairment] 02-07-2018 Episodic Comment on above: MINI MENTAL 24 -- PT DECLINED RX SO WILL READ BOOK BOOST YOUR BRAIN-- verty intelligent man- and remembers tons of scientific equations etc that was his professioh and upset by this Residual codes; unclassified (8 sources) Vaccination required; Translations: [Need for vaccination against Streptococcus pneumoniae] 07-21-2016 Episodic Residual codes; unclassified (20 sources) Body mass index (BMI) 22.0-22.9, adult; Translations: [Body mass index 20-24 - normal] Resolved: 3 02-07-2018 Episodic Residual codes; unclassified (20 sources) Needs influenza immunization; Translations: [Need for prophylactic vaccination and inoculation against influenza (Renamed from Need for immunization against influenza)] 02-07-2018 Episodic Residual codes; unclassified (20 sources) Body Mass Index between 19-24, adult; Translations: [Finding of body mass index] Resolved: 0 02-07-2018 Episodic Residual codes; unclassified (20 sources) Non-smoker; Translations: [Nonsmoker] 12-23-2015 Episodic Respiratory failure; insufficiency; arrest (adult) (20 sources) Acute respiratory failure; Translations: [Respiratory failure, acute] Resolved: 3 03-06-2020 Episodic Spondylosis; intervertebral disc disorders; other back problems (2 sources) Spondylosis without myelopathy or radiculopathy, sacral and sacrococcygeal region; Translations: [Degeneration of lumbar intervertebral disc] Onset: 9 11-03-2018 Chronic Spondylosis; intervertebral disc disorders; other back problems (20 sources) Backache; Translations: [Degenerative lumbar spinal stenosis] Onset: 9 10-12-2018 Episodic Sprains and strains (5 sources) Strain of muscle and/or tendon of lower leg; Translations: [Strain of unspecified muscle and tendon at ankle and foot level, right foot, initial encounter] 05-02-2021 Episodic Thyroid disorders (20 sources) Acquired hypothyroidism; Translations: [Acquired hypothyroidism] Onset: 5 02-07-2018 Chronic Unclassified (20 sources) Unclassified (20 sources) Hypercholesteremia Unclassified (20 sources) Hypertension, essential, benign Unclassified (20 sources) HYPERTENSION, BENIGN ESSENTIAL (401.1) Unclassified (20 sources) Non-smoker; Translations: [Nonsmoker] 12-23-2015 Unclassified (20 sources) Hypercholesteremia (272.0) Unclassified (20 sources) BMI between 19-24,adult; Translations: [Finding of body mass index] Resolved: 0 10-10-2018 Unclassified (20 sources) Non-smoker Unclassified (20 sources) Lower extremity pain, diffuse, unspecified laterality Unclassified (20 sources) Elevated TSH Unclassified (20 sources) Screening for prostate cancer Unclassified (20 sources) Abnormal TSH Unclassified (20 sources) Body mass index (BMI) 22.0-22.9, adult; Translations: [Body mass index 20-24 - normal] 08-10-2018 Unclassified (20 sources) BMI 22.0-22.9, adult; Translations: [Body mass index 20-24 - normal] Resolved: 0 10-10-2018 Unclassified (20 sources) Degenerative lumbar spinal stenosis Unclassified (20 sources) Body mass index 20-24 - normal; Translations: [BMI 23.0-23.9, adult] Resolved: 0 08-18-2019 Unclassified (1 source) Need for vaccination against Streptococcus pneumoniae Viral infection (20 sources) Coronavirus infection; Translations: [Coronavirus infection] Resolved: 3 03-04-2020 Episodic Past or Other Problems Problem Classification Problem Date Documented Date Episodic/Chronic Acute and unspecified renal failure (4 sources) Acute renal failure syndrome; Translations: [Acute kidney failure, unspecified] Onset: 05-09-2024 05-14-2024 Episodic Chronic obstructive pulmonary disease and bronchiectasis (20 sources) Chronic obstructive pulmonary disease and bronchiectasis Malaise and fatigue (20 sources) Fatigue; Translations: [Feeling exhausted] Onset: 05-10-2024 Resolved: 02-26-2021 03-06-2020 Episodic Nonspecific chest pain (1 source) Other chest pain; Translations: [Other chest pain] Onset: 04-05-2024 Episodic Other lower respiratory disease (1 source) Other forms of dyspnea; Translations: [Other forms of dyspnea] Onset: 03-22-2024 Episodic Other screening for suspected conditions (not mental disorders or infectious disease) (20 sources) Raised TSH level; Translations: [Other specified abnormal findings of blood chemistry] Onset: 03-30-2024 Resolved: 06-03-2017 02-07-2018 Episodic Comment on above: pt refused scope - o redered cologard 05/23 Residual codes; unclassified (20 sources) Requires vaccination; Translations: [Need for vaccination against Streptococcus pneumoniae] 07-21-2016 Respiratory failure; insufficiency; arrest (adult) (4 sources) Respiratory failure; insufficiency; arrest (adult) Unclassified (20 sources) Abnormal Lung Sounds/Rales (786.7) Unclassified (20 sources) Screening status; Translations: [Encounter for screening for malignant neoplasm of colon (Renamed from Special screening for malignant neoplasms, colon)] 02-07-2018 Comment on above: pt refused scope - o redered cologard 05/23 Unclassified (20 sources) OCCLUSION, CAROTID ARTERY W/O INFARCTION (433.10) Unclassified (20 sources) Abnormal TSH (794.5) Unclassified (20 sources) SCREENING FOR CANCER OF THE PROSTATE (V76.44) Unclassified (20 sources) Annual Medicare Physical (V70.0) Unclassified (20 sources) Annual Medicare Physical WITH abnormal findings (Renamed from Encounter for general adult medical examination with abnormal findings); Translations: [Patient encounter status] 06-03-2017 Unclassified (20 sources) Encounter for Medicare annual wellness exam; Translations: [Patient encounter status] 02-07-2018 Unclassified (20 sources) Fracture of third lumbar vertebra; Translations: [L3 vertebral fracture] Onset: 11-03-2018 10-19-2018 Unclassified (1 source) Problem Unclassified (5 sources) Feeling exhausted Urinary tract infections (4 sources) Urinary tract infectious disease; Translations: [Urinary tract infection, site not specified] Onset: 05-09-2024 05-14-2024 Episodic Results Test Name Value Interpretation Reference Range Facility Chest PA and Lateralon 09-05 Chest PA and Lateral [facility] Imaging Services [address] [place] [address] Chest PA and Lateral MR#: [id number] Acct: [id number] Name: SIERRA GARCÍA Rep #: [id number] : 1945 M 79 From: Geovani Ogden MD PCP: Dr. Marci Rose DO Status: [facility] ER Study: Chest PA and Lateral Date of Exam: 09/05/24 Exam# [id number] Ordering Dr: Demetri Jacobo DO PROCEDURE: CHEST PA AND LATERAL 09/05/2024 REASON FOR EXAM: COUGH TECHNIQUE: CHEST PA AND LATERAL COMPARISON: 05/17/2024. FINDINGS: The heart is normal in size. The lungs are hypoaerated but clear. Scoliosis. RAD/Chest PA and Lateral IMPRESSION: NO ACUTE FINDINGS. Reading Location: [id number] CC: Dr. Marci Rose DO; Demetri Jacobo DO Adjustment Clerk: Signed Normal [facility] Emergency Department Summary on 09-05-2024 Emergency Department Summary [facility] Medical Records Department [address] [place] [address] Emergency Department Summary 09/05/24 MR#: [id number] Acct: [id number] Name: SIERRA GARCÍA Rep #: [id number] : 1945 79 From: Demetri Jacobo DO PCP: Dr. Marci Rose DO Status:DEP ER Location: ED HPI History of Present Illness Chief Complaint: Shortness of Breath Informant: patient and friend Narrative Narrative: Patient is a 79-year-old male with past medical history of hypertension hyperlipidemia and hypothyroidism. He states that he underwent pulmonary function testing a few months ago but never did obtain the results. He states that he believes he has COPD but denies any history of smoking secondhand smoke exposure or chemical exposure. He states that he gets pneumonia often and he reports he has been having increased cough and shortness of breath which concerned him for potential infection and therefore he comes in for evaluation. [facility] Medical History Leo hereditary optic atrophy Back pain Pneumonia, pneumococcal Pneumonia Arthritis HTN (hypertension) Hypothyroid Home Medications ???Medication ???Instructions ???Recorded ???Last Taken ???Type levothyroxine 50 mcg tablet 50 mcg PO DAILY thyroid 10/11/18 U nknown History lisinopril 10 5 - 6.25 mg PO DAILY PRN blood 08/24 Unknown History mg-hydrochlorothiazide 12.5 mg pressure tablet paroxetine HCl 30 mg tablet 30 mg PO DAILY mental health 10/11 Unknown History simvastatin 10 mg tablet 10 mg PO DAILY cholesterol 9 Unknown History gabapentin 100 mg capsule 100 mg PO TID PRN pain 02/16/24 Un known History qqlvh-4x-nwn-epa-fish oil-vit D3 1 cap PO DAILY supplement 02/16/24 Unknown History 350 mg-400 mg-1,000 unit capsule cephalexin 500 mg tablet 500 mg PO BID #14 tabs 05/06/24 Un known Rx tamsulosin 0.4 mg capsule 0.8 mg (2 x 0.4 mg) PO DAILY@1730 05/06/24 Unknown Rx #60 caps ipratropium 0.5 mg-albuterol 3 mg 3 ml inhalation 4X/DAY PRN Unknown Rx (2.5 mg base)/3 mL nebulization Shortness of breath/wheeze #180 mL soln nebulizer and compressor #1 ea 09/05/24 Unknown Rx prednisone 20 mg tablet 20 mg PO DAILY 5 days #5 tabs 04/01 Unknown Rx Allergy/AdvReac Type Severity Reaction Status Date / Time No Known Allergies Allergy Verified 09/05/24 18:21 Family History Mother Leo's hereditary optic atrophy Aunt Leo's hereditary optic atrophy Uncle Leo's hereditary optic atrophy Social History household members: none Smoking Status: Former smoker substance use type: does not use ROS ROS ED Constitutional Constitutional ED: Denies chills or fever(s) ENT ENT ED: Denies sore throat Cardiovascular Cardiovascular: Denies chest pain Respiratory/Chest Respiratory/Chest: Reports cough and dyspnea Gastrointestinal Gastrointestinal: Denies abdominal pain, diarrhea, nausea or vomiting Genitourinary Genitourinary ED: Denies dysuria Musculoskeletal Musculoskeletal: Denies back pain or myalgias Integumentary Denies rash Neurologic Neurologic: Denies headache(s) Hematologic/Lymphatic Hematologic/Lymphatic: Denies easy bleeding or easy bruising Allergic/Immunologic Allergic/Immunologic ED: Denies mouth swelling or tongue swelling EXAM Physical Exam Const Vital Signs: 09/05/24 18:17 09/05/24 18:20 09/05/24 21:31 Temperature 97.4 F L 97.4 F L 97.9 F Temperature Source Oral Oral Temporal Pulse Rate 47 L 49 L 70 Respiratory Rate 24 H 24 H 24 H Respiratory Effort Respiratory Depth Respiratory Pattern Blood Pressure 138/73 H 138/73 H 151/91 H Blood Pressure Mean 94 94 111 Pulse Ox 94 93 97 Oxygen Delivery Method Room Air Room Air Room Air 09/05/24 21:32 09/05/24 22:35 09/05/24 23:05 Temperature Temperature Source Pulse Rate 66 78 Respiratory Rate 22 H 16 Respiratory Effort Short of Breath Respiratory Depth Normal Respiratory Pattern Normal Tachypnea Blood Pressure 147/90 H Blood Pressure Mean 109 Pulse Ox 100 Oxygen Delivery Method Room Air 09/05/24 23:08 Temperature 98.3 F Temperature Source Pulse Rate 74 Respiratory Rate 20 H Respiratory Effort Respiratory Depth Respiratory Pattern Blood Pressure 142/74 H Blood Pressure Mean 96 Pulse Ox 100 Oxygen Delivery Method Positive well nourished and well developed General Appearance ED: well developed; Negative for pallor HEENT Reports moist mucous membranes HEENT Narrative: No tongue or lip swelling no oral lesions no airway edema or compromise Eyes PERR (more content not included)... Normal [facility] Chest PA and Lateralon 05-17 Chest PA and Lateral [facility] Imaging Services [address] [place] [address] Chest PA and Lateral MR#: [id number] Acct: [id number] Name: SIERRA GARCÍA Rep #: [id number] : 1945 M 79 From: Aime Raya MD PCP: Dr. Marci Rose DO Status: DEP AMB Study: Chest PA and Lateral Date of Exam: 05/17/24 Exam# [id number] Ordering Dr: Marci Rose DO ADDENDUM by Dr. Aime Raya MD on 05/19/24 at 1119 No significant change from chest radiograph dated 2024. Reading Location: [facility] 05/19/24 1119 Date cc: Dr. Marci Rose DO * Signed EXAM: XR Chest, 2 Views CLINICAL INDICATION: ABNORMAL LUNG SOUNDS TECHNIQUE: Frontal and lateral views of the chest. COMPARISON: No relevant prior studies available. FINDINGS: LUNGS AND PLEURAL SPACES: Pulmonary venous congestion. No consolidation. No pneumothorax. HEART: Unremarkable. No cardiomegaly. MEDIASTINUM: Unremarkable. Normal mediastinal contour. BONES/JOINTS: Unremarkable. No acute fracture. RAD/Chest PA and Lateral IMPRESSION: Pulmonary venous congestion. Reading Location: [facility] CC: Dr. Marci Rose DO Adjustment Clerk: Signed Normal [facility] Lactic Acidon 05-09-2024 Lactate [Moles/Vol] 2.3 mmol/L Invalid Interpretation Code 0.0-2.0 [facility] Comment on above: Order Comment: RESUL TS CALLED TO SARAN ARBOLEDA 05/03/24 1323 Rodolfo Sibley.REPORT READ BACK BY SAME.Y Result Comment: Crit ical Result(s) Called at: by:??Results read back by same. Critical Result(s) Called at: by:??Results read back by same. RESULTS CALLED TO SARAN ARBOLEDA 05/03/24 1323 Rodolfo Sibley. REPORT READ BACK BY SAME. AMENDED REPORT 05/09/24 1176 LACTIC ACID previously reported as: 2.3 *H mmol/L Critical Result(s) Called at: by:??Results read back by same. Performed By: #### L 300.4310, L500.4050, M200.1000, L300.3900, L503.6005, L100.0100 ####[facility] [address] [place], [address] Culture, Blood (WB)on 2024 CUB Blood cultures x2, f rom two different sites No growth in 5 days. Normal [facility] Comment on above: Performed By: #### L 300.4310, L500.4050, M200.1000, L300.3900, L503.6005, L100.0100 ####[facility] [address] [place], [address] BUN/creatinine ratioOrdered By: Aime Sierra on 05-06-2024 Urea nitrogen/Creatinine [Mass ratio] 15.2 mg/mg 10- [facility] Basic Metabolic Profile (BMP )on 05-06-2024 Anion gap [Moles/Vol] 13 mmol/L Normal - [facility] Comment on above: Performed By: #### L 500.2500 ####[facility] [address] [place], [address] BUN/CRE 15.2 RATIO Normal - [facility] Comment on above: Performed By: #### L 500.2500 ####[facility] [address] [place], [address] Calcium [Mass/Vol] 10.1 mg/dL Normal 7.6-11.0 [facility] Comment on above: Performed By: #### L 500.2500 ####[facility] [address] [place], [address] Chloride [Moles/Vol] 111 mmol/L High 96-108 [facility] Comment on above: Performed By: #### L 500.2500 ####[facility] [address] [place], [address] CO2 [Moles/Vol] 19.5 mmol/L Low 22.0-29.0 [facility] Comment on above: Performed By: #### L 500.2500 ####[facility] [address] [place], [address] Creatinine [Mass/Vol] 1.85 mg/dL High 0.70-1.20 [facility] Comment on above: Performed By: #### L 500.2500 ####[facility] [address] [place], [address] ECRCL 35.61 ml/min Normal [facility] Comment on above: Performed By: #### L 500.2500 ####[facility] [address] [place], [address] GFR/1.73 sq M.predicted among non-blacks MDRD (S/P/Bld) [Vol rate/Area] 37 mL/min/{1.73_m2} Low >60 [facility] Comment on above: Result Comment: mL/m in/1.73m2 CKD-EPI Creatinine Equation (2020) Performed By: #### L 500.2500 ####[facility] [address] [place], [address] Glucose [Mass/Vol] 99 mg/dL Normal 70-99 [facility] Comment on above: Performed By: #### L 500.2500 ####[facility] [address] [place], [address] Potassium [Moles/Vol] 3.6 mmol/L Normal 3.3-5.1 [facility] Comment on above: Performed By: #### L 500.2500 ####[facility] [address] [place], [place], [address] Sodium [Moles/Vol] 143 mmol/L Normal 133-145 [facility] Comment on above: Performed By: #### L 500.2500 ####[facility] [address] [place], [place], [id number] Urea nitrogen [Mass/Vol] 28 mg/dL High 4-19 [facility] Comment on above: Performed By: #### L 500.2500 ####[facility] [address] [facility] [address] [place], [place], [id number] Carbon dioxide measurementOr dered By: Aime Sierra on 05-06-2024 CO2 [Moles/Vol] 19.5 mmol/L Low 22.0-29.0 [facility] Chloride measurementOrdered By: Aime Sierra on 05-06-2024 Chloride [Moles/Vol] 111 mmol/L High 96-108 [facility] Discharge Instructionon 03-0 Discharge Instruction [facility] Medical Records Department [address] [place] [address] Instructions for Home/Discharge Instructions 05/06/24 1006 MR#: [id number] Acct: [id number] Name: SIERRA GARCÍA Rep #: [id number] : 1945 79 From: Aime Sierra DO PCP: Dr. Marci Rose DO Status:ADM IN Discharge Instructions Diet Discharge Diet: No restrictions DC O2, CPAP, BIPAP needs Home O2 Discharge instructions: No Dressing / Incision Discharge Activity: Return to Normal Activity Weight Bearing Status: Full weight bearing Follow Up Care Test Results: Test results from this visit will be discussed in further detail at your follow-up appointment, if applicable. Discharge Plan Admission Admit Date/Time: 05/03/24 16:14 Primary Reason for Your Visit: urinary tract infection, acute kidney injury Attending Provider: Aime Sierra Primary Care Provider: Marci Rose Consulting Providers: Sha Wilson Discharge Orders/Prescriptions Prescriptions: New tamsulosin 0.4 mg Capsule 0.8 mg PO DAILY@1730 Qty: 60 0RF cephalexin 500 mg tablet 500 mg PO BID Qty: 14 0RF Rx Instructions: start on 05/07/24 Continued simvastatin 10 MG tablet 10 mg PO DAILY levothyroxine 50 MCG tablet 50 mcg PO DAILY paroxetine HCl 30 MG tablet 30 mg PO DAILY lisinopril-hydrochlorot hiazide 10-12.5 tablet 5 - 6.25 mg PO DAILY PRN (Reason: blood pressure) gabapentin 100 mg capsule 100 mg PO TID PRN (Reason: pain) rsfhe-5e-std-epa-fish oil-D3 350 mg-400 mg- 1,000 unit capsule 1 cap PO DAILY Referrals / Follow Up: Marci Rose DO [Primary Care Provider] - Disposition Disposition (needs filled in before D/C Order can be placed): Home, Self Care 05/06/24 1014 Aime Sierra DO CC: Dr. Sha Wilson DO; Dr. Marci Rose DO Signed Normal [facility] Estimation of creatinine anni aranceOrdered By: Aime Sierra on 05-06-2024 Estimated Creatinine Clearance Calc 35.61 ml/min [facility] GFR/1.73 sq M.predicted rae g non-blacks MDRD (S/P/Bld) [Vol rate/Area]Ordered By: Aime Sierra on 05-06-2024 Estimated GFR (MDRD) Non-Af Amer 37 Low >60 [facility] Comment on above: mL/min/1.73m2 CKD-EP I Creatinine Equation (2020) Serum creatinine measurement (mass/volume)Ordered By: Aime Sierra on 05-06-2024 Creatinine [Mass/Vol] 1.85 mg/dL High 0.70-1.20 [facility] Serum glucose measurement (m ass/volume)Ordered By: Aime Sierra on 05-06-2024 Glucose [Mass/Vol] 99 mg/dL 70-99 [facility] Serum or plasma anion gap de termination (moles/volume)Ordered By: Aime Sierra on 05-06-2024 Anion gap [Moles/Vol] 13 mmol/L 5-15 [facility] Serum or plasma calcium kiley urement (mass/volume)Ordered By: Aime Sierra on 05-06-2024 Calcium [Mass/Vol] 10.1 mg/dL 7.6-11.0 [facility] Serum or plasma potassium me asurementOrdered By: Aime Sierra on 05-06-2024 Potassium [Moles/Vol] 3.6 mmol/L 3.3-5.1 [facility] Serum or plasma sodium measu rement (moles/volume)Ordered By: Aime Sierra on 05-06-2024 Sodium [Moles/Vol] 143 mmol/L 133-145 [facility] Serum or plasma urea nitroge n measurement (mass/volume)Ordered By: Aime Sierra on 05-06-2024 Urea nitrogen [Mass/Vol] 28 mg/dL High 4-19 [facility] Absolute neutrophil countOrd ered By: Aime Sierra on 05-05-2024 Neutrophils (Bld) [#/Vol] 5.1 10*3/uL 2.0-7.7 [facility] Basic Metabolic Profile (BMP )on 05-05-2024 Anion gap [Moles/Vol] 11 mmol/L Normal 5-15 [facility] Comment on above: Performed By: #### L 100.0100, L500.2500 ####[facility] [address] [place], [address] BUN/CRE 12.2 RATIO Normal 10-20 [facility] Comment on above: Performed By: #### L 100.0100, L500.2500 ####[facility] [address] [place], [address] Calcium [Mass/Vol] 10.2 mg/dL Normal 7.6-11.0 [facility] Comment on above: Performed By: #### L 100.0100, L500.2500 ####[facility] [address] [place], [address] Chloride [Moles/Vol] 111 mmol/L High 96-108 [facility] Comment on above: Performed By: #### L 100.0100, L500.2500 ####[facility] [address] [place], [address] CO2 [Moles/Vol] 21.7 mmol/L Low 22.0-29.0 [facility] Comment on above: Performed By: #### L 100.0100, L500.2500 ####[facility] [address] [place], [address] Creatinine [Mass/Vol] 2.18 mg/dL High 0.70-1.20 [facility] Comment on above: Performed By: #### L 100.0100, L500.2500 ####[facility] [address] [place], [address] ECRCL 30.22 ml/min Normal [facility] Comment on above: Performed By: #### L 100.0100, L500.2500 ####[facility] [address] [place], [address] GFR/1.73 sq M.predicted among non-blacks MDRD (S/P/Bld) [Vol rate/Area] 30 mL/min/{1.73_m2} Low >60 [facility] Comment on above: Result Comment: mL/m in/1.73m2 CKD-EPI Creatinine Equation (2020) Performed By: #### L 100.0100, L500.2500 ####[facility] [address] [place], [address] Glucose [Mass/Vol] 100 mg/dL High 70-99 [facility] Comment on above: Performed By: #### L 100.0100, L500.2500 ####[facility] [address] [place], [address] Potassium [Moles/Vol] 4.0 mmol/L Normal 3.3-5.1 [facility] Comment on above: Performed By: #### L 100.0100, L500.2500 ####[facility] [address] [place], [address] Sodium [Moles/Vol] 144 mmol/L Normal 133-145 [facility] Comment on above: Performed By: #### L 100.0100, L500.2500 ####[facility] [address] [place], [address] Urea nitrogen [Mass/Vol] 27 mg/dL High 4-19 [facility] Comment on above: Performed By: #### L 100.0100, L500.2500 ####[facility] [address] [place], [address] Basophil percentageOrdered B y: Aime Hannaeverkamron on 05-05-2024 Basophils/100 WBC (Bld) 0.6 % 0-1 [facility] CBC W/Diff, Automatedon 04-09 PATH REV Reviewed Normal [facility] Comment on above: Result Comment: Neut rophilic leukocytosis. Clinical correlation necessary. Jeffrey Grijalva M.D. 05/05/24 AMENDED REPORT 05/05/24 0924 PATH REV previously reported as: July Performed By: #### L 300.4310, L500.4050, M200.1000, L300.3900, L503.6005, L100.0100 #### [facility] [address] [place], [address] Absolute Lymph 1.22 X10 3/uL Normal 0.83-4.51 [facility] Comment on above: Performed By: #### L 100.0100, L500.2500 ####[facility] [address] [place], [address] Absolute Neut 5.1 X10 3/uL Normal 2.0-7.7 [facility] Comment on above: Performed By: #### L 100.0100, L500.2500 ####[facility] [address] [place], [address] Basophils/100 WBC (Bld) 0.6 % Normal 0-1 [facility] Comment on above: Performed By: #### L 100.0100, L500.2500 ####[facility] [address] [place], [address] Eosinophils/100 WBC (Bld) 8.6 % High 0-5 [facility] Comment on above: Performed By: #### L 100.0100, L500.2500 ####[facility] [address] [place], [address] Erythrocyte distribution width (RBC) [Ratio] 14.6 % Normal 11.6-14.6 [facility] Comment on above: Performed By: #### L 100.0100, L500.2500 ####[facility] [address] [place], [address] Hematocrit (Bld) [Volume fraction] 34.7 % Low 40-54 [facility] Comment on above: Performed By: #### L 100.0100, L500.2500 ####[facility] [address] [place], [address] Hemoglobin (Bld) [Mass/Vol] 11.4 g/dL Low 13.0-16.5 [facility] Comment on above: Performed By: #### L 100.0100, L500.2500 ####[facility] [address] [place], [address] IG% 0.300 Normal 0.0-0.9 [facility] Comment on above: Result Comment: IG% - Immature Granulocytes (promyelocytes, myelocytes and metamyelocytes) > 1% indicates that a LEFT SHIFT is Present. Performed By: #### L 100.0100, L500.2500 ####[facility] [address] [place], [address] Lymphocytes/100 WBC (Bld) 15.6 % Low 19-41 [facility] Comment on above: Performed By: #### L 100.0100, L500.2500 ####[facility] [address] [place], [address] MCH (RBC) [Entitic mass] 28.4 pg Normal 27.0-32.0 [facility] Comment on above: Performed By: #### L 100.0100, L500.2500 ####[facility] [address] [place], [address] MCHC (RBC) [Mass/Vol] 32.9 g/dL Normal 32-36 [facility] Comment on above: Performed By: #### L 100.0100, L500.2500 ####[facility] [address] [place], [address] MCV (RBC) [Entitic vol] 86.3 fL Normal 80-94 [facility] Comment on above: Performed By: #### L 100.0100, L500.2500 ####[facility] [address] [place], [address] Monocytes/100 WBC (Bld) 9.7 % Normal 0-10 [facility] Comment on above: Performed By: #### L 100.0100, L500.2500 ####[facility] [address] [place], [address] Neutrophils/100 WBC (Bld) 65.2 % Normal 47-70 [facility] Comment on above: Performed By: #### L 100.0100, L500.2500 ####[facility] [address] [place], [address] Nucleated RBC (Bld) [#/Vol] 0 10*3/uL Normal 0-5 [facility] Comment on above: Performed By: #### L 100.0100, L500.2500 ####[facility] [address] [place], [address] Platelet mean volume (Bld) [Entitic vol] 12.6 fL High 6.2-12.0 [facility] Comment on above: Performed By: #### L 100.0100, L500.2500 ####[facility] [address] [place], [address] Platelets (Bld) [#/Vol] 189 10*3/uL Normal 150-450 [facility] Comment on above: Performed By: #### L 100.0100, L500.2500 ####[facility] [address] [place], [address] RBC (Bld) [#/Vol] 4.02 10*6/uL Low 4.6-6.2 [facility] Comment on above: Performed By: #### L 100.0100, L500.2500 ####[facility] [address] [place], [address] RDW SD 46.5 fl High 35.1-43.9 [facility] Comment on above: Performed By: #### L 100.0100, L500.2500 ####[facility] [address] [place], [address] WBC (Bld) [#/Vol] 7.8 10*3/uL Normal 4.4-11.0 [facility] Comment on above: Performed By: #### L 100.0100, L500.2500 ####[facility] [address] [place], [address] Eosinophil percentageOrdered By: Aime Sierra on 05-05-2024 Eosinophils/100 WBC (Bld) 8.6 % High 0-5 [facility] Erythrocyte distribution wid th ratioOrdered By: Aime Sierra on 05-05-2024 Erythrocyte distribution width (RBC) [Ratio] 14.6 % 11.6-14.6 [facility] Erythrocyte distribution wid th standard deviationOrdered By: Aime Sierra on 05-05-2024 Erythrocyte distribution width (RBC) [Entitic vol] 46.5 fL High 35.1-43.9 [facility] Hematocrit Auto (Bld) [Volum e fraction]Ordered By: Aime Sierra on 05-05-2024 Hematocrit (Bld) [Volume fraction] 34.7 % Low 40-54 [facility] Hemoglobin measurementOrdere d By: Aime Sierra on 05-05-2024 Hemoglobin (Bld) [Mass/Vol] 11.4 g/dL Low 13.0-16.5 [facility] Immature granulocytes/100 WB C Auto (Bld)Ordered By: Aime Sierra on 05-05-2024 Immature granulocytes/100 WBC (Bld) 0.300 % 0.0-0.9 [facility] Comment on above: IG% - Immature Granu locytes (promyelocytes, myelocytes and metamyelocytes) > 1% indicates that a LEFT SHIFT is Present. Lymphocytes Auto (Unsp spec) [#/Vol]Ordered By: Aime Sierra on 05-05-2024 Lymphocytes (Bld) [#/Vol] 1.22 10*3/uL 0.83-4.51 [facility] Lymphocytes/100 WBC Auto (Un sp spec)Ordered By: Aime Sierra on 05-05-2024 Lymphocytes/100 WBC (Bld) 15.6 % Low 19-41 [facility] MCV (mean corpuscular volume ) determinationOrdered By: Aime Sierra on 05-05-2024 MCV (RBC) [Entitic vol] 86.3 fL 80-94 [facility] Mean corpuscular hemoglobin (MCH) determinationOrdered By: Aime Sierra on 05-05-2024 MCH (RBC) [Entitic mass] 28.4 pg 27.0-32.0 [facility] Mean corpuscular hemoglobin concentration (MCHC) determinationOrdered By: Aime Sierra on 05-05-2024 MCHC (RBC) [Mass/Vol] 32.9 g/dL 32-36 [facility] Mean platelet volume determi nationOrdered By: Aime Sierra on 05-05-2024 Platelet mean volume (Bld) [Entitic vol] 12.6 fL High 6.2-12.0 [facility] Monocyte percentageOrdered B y: Aime Sierra on 05-05-2024 Monocytes/100 WBC (Bld) 9.7 % 0-10 [facility] Neutrophil percentageOrdered By: Aime Sierra on 05-05-2024 Neutrophils/100 WBC (Bld) 65.2 % 47-70 [facility] Nucleated red blood cell per centageOrdered By: Aime Sierra on 05-05-2024 Nucleated RBC/100 WBC (Bld) [Ratio] 0 % 0-5 [facility] Platelet countOrdered By: Leonel Sierra on 05-05-2024 Platelets (Bld) [#/Vol] 189 10*3/uL 150-450 [facility] RBC Auto (Bld) [#/Vol]Ordere d By: Aime Sierra on 05-05-2024 RBC (Bld) [#/Vol] 4.02 10*6/uL Low 4.6-6.2 [facility] Urine Cultureon 05-05-2024 URC Below infection cammie zhao Mixed Gram Positive Organisms [place] Count <1000 MIXC Mixed contaminants. Submit a new specimen if indicated. Normal [facility] Comment on above: Performed By: #### M 100.2200 #### [facility] Laboratory [address] [place], [address] White blood cell (WBC) count Ordered By: Aime Sierra on 05-05-2024 WBC (Bld) [#/Vol] 7.8 10*3/uL 4.4-11.0 [facility] Basic Metabolic Profile (BMP )on 05-04-2024 Anion gap [Moles/Vol] 14 mmol/L Normal 5-15 [facility] Comment on above: Performed By: #### L 100.0100, L500.2500 ####[facility] [address] [place], [address] BUN/CRE 10.8 RATIO Normal 10-20 [facility] Comment on above: Performed By: #### L 100.0100, L500.2500 ####[facility] [address] [place], [address] Calcium [Mass/Vol] 10.0 mg/dL Normal 7.6-11.0 [facility] Comment on above: Performed By: #### L 100.0100, L500.2500 ####[facility] [address] [place], [address] Chloride [Moles/Vol] 111 mmol/L High 96-108 [facility] Comment on above: Performed By: #### L 100.0100, L500.2500 ####[facility] [address] [place], [address] CO2 [Moles/Vol] 18.6 mmol/L Low 22.0-29.0 [facility] Comment on above: Performed By: #### L 100.0100, L500.2500 ####[facility] [address] [place], [address] Creatinine [Mass/Vol] 2.7 mg/dL High 0.8-1.3 [facility] Comment on above: Performed By: #### L 100.0100, L500.2500 ####[facility] [address] [place], [address] ECRCL 24.40 ml/min Normal [facility] Comment on above: Performed By: #### L 100.0100, L500.2500 ####[facility] [address] [place], [address] GFR/1.73 sq M.predicted among non-blacks MDRD (S/P/Bld) [Vol rate/Area] 24 mL/min/{1.73_m2} Low >60 [facility] Comment on above: Result Comment: mL/m in/1.73m2 CKD-EPI Creatinine Equation (2020) Performed By: #### L 100.0100, L500.2500 ####[facility] [address] [place], [address] Glucose [Mass/Vol] 103 mg/dL High 70-99 [facility] Comment on above: Performed By: #### L 100.0100, L500.2500 ####[facility] [address] [place], [address] Potassium [Moles/Vol] 4.0 mmol/L Normal 3.3-5.1 [facility] Comment on above: Performed By: #### L 100.0100, L500.2500 ####[facility] [address] [place], [address] Sodium [Moles/Vol] 143 mmol/L Normal 133-145 [facility] Comment on above: Performed By: #### L 100.0100, L500.2500 ####[facility] [address] [place], [address] Urea nitrogen [Mass/Vol] 29 mg/dL High 4-19 [facility] Comment on above: Performed By: #### L 100.0100, L500.2500 ####[facility] [address] [place], [address] CBC W/Diff, Automatedon 02-2 Absolute Lymph 1.05 X10 3/uL Normal 0.83-4.51 [facility] Comment on above: Performed By: #### L 100.0100, L500.2500 ####[facility] [address] [place], [address] Absolute Neut 8.4 X10 3/uL High 2.0-7.7 [facility] Comment on above: Performed By: #### L 100.0100, L500.2500 ####[facility] [address] [place], [address] Basophils/100 WBC (Bld) 0.5 % Normal 0-1 [facility] Comment on above: Performed By: #### L 100.0100, L500.2500 ####[facility] [address] [place], [address] Eosinophils/100 WBC (Bld) 5.1 % High 0-5 [facility] Comment on above: Performed By: #### L 100.0100, L500.2500 ####[facility] [address] [place], [address] Erythrocyte distribution width (RBC) [Ratio] 14.5 % Normal 11.6-14.6 [facility] Comment on above: Performed By: #### L 100.0100, L500.2500 ####[facility] [address] [place], [address] Hematocrit (Bld) [Volume fraction] 36.5 % Low 40-54 [facility] Comment on above: Performed By: #### L 100.0100, L500.2500 ####[facility] [address] [place], [address] Hemoglobin (Bld) [Mass/Vol] 12.0 g/dL Low 13.0-16.5 [facility] Comment on above: Performed By: #### L 100.0100, L500.2500 ####[facility] [address] [place], [address] IG% 0.500 Normal 0.0-0.9 [facility] Comment on above: Result Comment: IG% - Immature Granulocytes (promyelocytes, myelocytes and metamyelocytes) > 1% indicates that a LEFT SHIFT is Present. Performed By: #### L 100.0100, L500.2500 ####[facility] [address] [place], [address] Lymphocytes/100 WBC (Bld) 9.1 % Low 19-41 [facility] Comment on above: Performed By: #### L 100.0100, L500.2500 ####[facility] [address] [place], [address] MCH (RBC) [Entitic mass] 28.5 pg Normal 27.0-32.0 [facility] Comment on above: Performed By: #### L 100.0100, L500.2500 ####[facility] [address] [place], [address] MCHC (RBC) [Mass/Vol] 32.9 g/dL Normal 32-36 [facility] Comment on above: Performed By: #### L 100.0100, L500.2500 ####[facility] [address] [place], [address] MCV (RBC) [Entitic vol] 86.7 fL Normal 80-94 [facility] Comment on above: Performed By: #### L 100.0100, L500.2500 ####[facility] [address] [place], [address] Monocytes/100 WBC (Bld) 11.1 % High 0-10 [facility] Comment on above: Performed By: #### L 100.0100, L500.2500 ####[facility] [address] [place], [address] Neutrophils/100 WBC (Bld) 73.7 % High 47-70 [facility] Comment on above: Performed By: #### L 100.0100, L500.2500 ####[facility] [address] [place], [address] Nucleated RBC (Bld) [#/Vol] 0 10*3/uL Normal 0-5 [facility] Comment on above: Performed By: #### L 100.0100, L500.2500 ####[facility] [address] [place], [address] Platelet mean volume (Bld) [Entitic vol] 11.3 fL Normal 6.2-12.0 [facility] Comment on above: Performed By: #### L 100.0100, L500.2500 ####[facility] [address] [place], [address] Platelets (Bld) [#/Vol] 185 10*3/uL Normal 150-450 [facility] Comment on above: Performed By: #### L 100.0100, L500.2500 ####[facility] [address] [place], [address] RBC (Bld) [#/Vol] 4.21 10*6/uL Low 4.6-6.2 [facility] Comment on above: Performed By: #### L 100.0100, L500.2500 ####[facility] [address] [place], [address] RDW SD 45.9 fl High 35.1-43.9 [facility] Comment on above: Performed By: #### L 100.0100, L500.2500 ####[facility] [address] [place], [address] WBC (Bld) [#/Vol] 11.5 10*3/uL High 4.4-11.0 [facility] Comment on above: Performed By: #### L 100.0100, L500.2500 ####[facility] [address] [place], [address] Urine Cultureon 05-04-2024 URC #1, 2 Below infectio n level. Presumptive E. coli [place] Count <1000 Mixed Gram Positive Organisms Mixed Gram Positive Organisms MIXC Mixed contaminants. Submit a new specimen if indicated. Normal [facility] Comment on above: Performed By: #### M 100.2200 #### [facility] [address] [place], [address] 12 Lead EKGon 2024 12 Lead EKG [facility] Cardiovascular Services [address] [place] [address] 12 Lead EKG 05/03/24 1249 MR#: [id number] Acct: [id number] Name: SIERRA GARCÍA Rep #: [id number] : 1945 79 From: Krzysztof Low MD Attending Dr: Dr. Aime Sierra DO Status: A DM IN Ordering Dr: Martin Meade MD Date: 05/03/24 Location: [facility] Sex: M C Admitted: 05/03/24 Test Reason : Blood Pressure : */* mmHG Vent. Rate : 100 BPM Atrial Rate : 100 BPM P-R Int : 138 ms QRS Dur : 92 ms QT Int : 336 ms P-R-T Axes : 33 -41 40 degrees QTcB Int : 433 ms Normal sinus rhythm Left axis deviation Abnormal ECG Confirmed by Krzysztof Low ([id number]), international editorial producer KENROY ÁLVAREZ ([id number]) on 05/04/2024 9:34:08 AM Referred By: AR/TB Confirmed By: Krzysztof Low 05/04/24 0934 Date Krzysztof Low MD CC: Dr. Martin Meade MD; Dr. Marci Rose DO; Dr. Aime Sierra DO Signed Normal [facility] Amorphous sediment detection in urine sediment by light microscopyOrdered By: Martin Meade on 2024 Amorphous sediment LM Ql (Urine sed) 1+ URATE [facility] Bilirubin Test strip Ql (U)O rdered By: Martin Meade on 2024 Bilirubin Ql (U) Negative Negative [facility] Bilirubin, totalOrdered By: Martin Meade on 2024 Bilirubin [Mass/Vol] 0.29 mg/dL 0.00-1.30 [facility] Blood cultureOrdered By: Lela Meade on 2024 Bacteria identified Cx Nom (Bld) No growth in 5 days. [facility] Chest 1 View (Portable)on Chest 1 View (Portable) [facility] Imaging Services [address] [place] [address] Chest 1 View (Portable) MR#: [id number] Acct: [id number] Name: RAQUELSIERRA Rep #: [id number] : 1945 M 79 From: Mark overton MD PCP: Dr. Marci Rose DO Status: REG ER Study: Chest 1 View (Portable) Date of Exam: 05/03/24 Exam# [id number] Ordering Dr: Martin Meade MD PROCEDURE: CHEST 1 VIEW (PORTABLE) REASON FOR EXAM: Weakness and fatigue. TECHNIQUE: Frontal view of the chest. COMPARISON: February 16, 2024. FINDINGS: Poor inspiratory effort. The heart size is normal. Mild degree of linear atelectasis at the lung bases. RAD/Chest 1 View (Portable) IMPRESSION: Poor inspiratory effort. Mild degree of bibasilar linear atelectasis. Reading Location: [id number] CC: Dr. Martin Meade MD; Dr. Marci Rose DO Adjustment Clerk: Signed Normal [facility] Comprehensive Metabolic Prof ilon 2024 Albumin [Mass/Vol] 3.8 g/dL Normal 3.4-4.8 [facility] Comment on above: Performed By: #### L 300.4310, L500.4050, M200.1000, L300.3900, L503.6005, L100.0100 ####[facility] [address] [place], [address] Albumin/Globulin [Mass ratio] 1.3 {ratio} Normal 0.9-2.4 [facility] Comment on above: Performed By: #### L 300.4310, L500.4050, M200.1000, L300.3900, L503.6005, L100.0100 ####[facility] [address] [place], [address] ALK PHOS 81 U/L Normal 40-129 [facility] Comment on above: Performed By: #### L 300.4310, L500.4050, M200.1000, L300.3900, L503.6005, L100.0100 ####[facility] [address] [place], [address] ALT [Catalytic activity/Vol] 20 U/L Normal <=46 [facility] Comment on above: Performed By: #### L 300.4310, L500.4050, M200.1000, L300.3900, L503.6005, L100.0100 ####[facility] [address] [place], [address] Anion gap [Moles/Vol] 13 mmol/L Normal 5-15 [facility] Comment on above: Performed By: #### L 300.4310, L500.4050, M200.1000, L300.3900, L503.6005, L100.0100 ####[facility] [address] [place], [address] AST [Catalytic activity/Vol] 23 U/L Normal <=37 [facility] Comment on above: Performed By: #### L 300.4310, L500.4050, M200.1000, L300.3900, L503.6005, L100.0100 ####[facility] [address] [place], [address] Bilirubin [Mass/Vol] 0.29 mg/dL Normal 0.00-1.30 [facility] Comment on above: Performed By: #### L 300.4310, L500.4050, M200.1000, L300.3900, L503.6005, L100.0100 ####[facility] [address] [place], [address] BUN/CRE 11.9 RATIO Normal 10-20 [facility] Comment on above: Performed By: #### L 300.4310, L500.4050, M200.1000, L300.3900, L503.6005, L100.0100 ####[facility] [address] [place], [address] Calcium [Mass/Vol] 10.3 mg/dL Normal 7.6-11.0 [facility] Comment on above: Performed By: #### L 300.4310, L500.4050, M200.1000, L300.3900, L503.6005, L100.0100 ####[facility] [address] [place], [address] Chloride [Moles/Vol] 104 mmol/L Normal 96-108 [facility] Comment on above: Performed By: #### L 300.4310, L500.4050, M200.1000, L300.3900, L503.6005, L100.0100 ####[facility] [address] [place], [address] CO2 [Moles/Vol] 22.5 mmol/L Normal 22.0-29.0 [facility] Comment on above: Performed By: #### L 300.4310, L500.4050, M200.1000, L300.3900, L503.6005, L100.0100 ####[facility] [address] [place], [address] Creatinine [Mass/Vol] 2.5 mg/dL High 0.8-1.3 [facility] Comment on above: Performed By: #### L 300.4310, L500.4050, M200.1000, L300.3900, L503.6005, L100.0100 ####[facility] [address] [place], [address] ECRCL 27.16 ml/min Normal [facility] Comment on above: Performed By: #### L 300.4310, L500.4050, M200.1000, L300.3900, L503.6005, L100.0100 ####[facility] [address] [place], [address] GFR/1.73 sq M.predicted among non-blacks MDRD (S/P/Bld) [Vol rate/Area] 26 mL/min/{1.73_m2} Low >60 [facility] Comment on above: Result Comment: mL/m in/1.73m2 CKD-EPI Creatinine Equation (2020) Performed By: #### L 300.4310, L500.4050, M200.1000, L300.3900, L503.6005, L100.0100 ####[facility] [address] [place], [address] Globulin (S) [Mass/Vol] 3.1 g/dL Normal 2.2-4.2 [facility] Comment on above: Performed By: #### L 300.4310, L500.4050, M200.1000, L300.3900, L503.6005, L100.0100 ####[facility] [address] [place], [address] Glucose [Mass/Vol] 135 mg/dL High 70-99 [facility] Comment on above: Performed By: #### L 300.4310, L500.4050, M200.1000, L300.3900, L503.6005, L100.0100 ####[facility] [address] [place], [address] Potassium [Moles/Vol] 3.9 mmol/L Normal 3.3-5.1 [facility] Comment on above: Performed By: #### L 300.4310, L500.4050, M200.1000, L300.3900, L503.6005, L100.0100 ####[facility] [address] [place], [address] Sodium [Moles/Vol] 139 mmol/L Normal 133-145 [facility] Comment on above: Performed By: #### L 300.4310, L500.4050, M200.1000, L300.3900, L503.6005, L100.0100 ####[facility] [address] [place], [address] T PROT 6.9 g/dL Normal 5.9-8.4 [facility] Comment on above: Performed By: #### L 300.4310, L500.4050, M200.1000, L300.3900, L503.6005, L100.0100 ####[facility] [address] [place], [address] Urea nitrogen [Mass/Vol] 30 mg/dL High 4-19 [facility] Comment on above: Performed By: #### L 300.4310, L500.4050, M200.1000, L300.3900, L503.6005, L100.0100 ####[facility] [address] [place], [address] Emergency Department Summary on 2024 Emergency Department Summary [facility] Medical Records Department [address] [place] [address] Emergency Department Summary 05/03/24 MR#: [id number] Acct: [id number] Name: SIERRA GARCÍA Rep #: [id number] : 1945 79 From: Martin Meade MD PCP: Dr. Marci Rose, DO Status:REG ER Location: ED HPI History of Present Illness Chief Complaint: General Illness Narrative Narrative: 79-year-old male, past medical history of hypertension, hyperlipidemia and spinal stenosis presents with generalized weakness and multiple somatic complaints that has had for the last few days. His friend who is with him states that he called him on Wednesday, 2 days ago and they were supposed to have a birthday constitution party for him today but he had already not started to feel well. He states over the last few days has had a generalized weakness and is generally tired. Of note, with his history of hypertension he was on lisinopril but was told by his primary care provider to cut back on it because of a cough. He denies any fevers or chills but states that he has had occasional cough and shortness of breath. Additionally, at times he is leaking urine. He is not totally incontinent and denies any loss of sensation but states he cannot make it to the toilet in time and sometimes has leakage of urine. Its only occasionally. He presents to the emergency department mainly because of the malaise and fatigue. It was noted in triage that he had a low blood pressure. He states he usually takes his blood pressure daily, and yesterday it was fine. [facility] Medical History Leo hereditary optic atrophy Back pain Pneumonia, pneumococcal Pneumonia Arthritis HTN (hypertension) Hypothyroid Home Medications ???Medication ???Instructions ???Recorded ???Last Taken ???Type levothyroxine 50 mcg tablet 50 mcg PO DAILY thyroid 10/11/18 U nknown History lisinopril 10 5 - 6.25 mg PO DAILY PRN blood 08/24 Unknown History mg-hydrochlorothiazide 12.5 mg pressure tablet paroxetine HCl 30 mg tablet 30 mg PO DAILY mental health 10/11 Unknown History simvastatin 10 mg tablet 10 mg PO DAILY cholesterol 9 Unknown History gabapentin 100 mg capsule 100 mg PO TID PRN pain 02/16/24 Un known History itswz-5f-ftj-epa-fish oil-vit D3 1 cap PO DAILY 02/16/24 Unknown Hi story 350 mg-400 mg-1,000 unit capsule Allergy/AdvReac Type Severity Reaction Status Date / Time No Known Allergies Allergy Verified 05/03/24 11:17 Family History Mother Leo's hereditary optic atrophy Aunt Leo's hereditary optic atrophy Uncle Leo's hereditary optic atrophy Social History household members: none Smoking Status: Former smoker substance use type: does not use ROS ROS ED ROS Narrative Constitutional: No fever, no chills. Generalized weakness. Positive malaise and fatigue. HEENT: No sore throat. No neck pain. No rhinorrhea. Cardiovascular: No chest pain. No palpitations. No pedal edema. Respiratory: Occasional cough, positive shortness of breath. Abdominal: No abdominal pain. No nausea. No vomiting. Genitourinary: No dysuria. No hematuria. Occasional leakage of urine. Musculoskeletal: No myalgias. No arthralgias. Neurologic: Occasional slight headaches. No dizziness. No lightheadedness. Skin: No rash. No change in color. Psychiatric: No depression. No anxiety. EXAM Physical Exam Narrative Exam Narrative: Afebrile. Vital signs noted. Initially blood pressure 76/40 with tachycardia 114. On my examination blood pressure over 100 systolic, not tachycardic. Abdomen soft and nontender with positive bowel sounds. Cardiovascular examination reveals a regular rate and rhythm. Occasional expiratory wheezing bilateral lung skelton. Moving a good amount of air. Neurological examination nonfocal and nonlateralizing. Moist mucous membranes. Const Vital Signs: 05/03/24 11:14 05/03/24 11:54 05/03/24 11:54 Temperature 96.6 F L 98.7 F Temperature Source Temporal Oral Pulse Rate 114 H 98 Respiratory Rate 18 18 Respiratory Effort Normal Respiratory Pattern Normal Blood Pressure 76/40 L 102/72 Blood Pressure Mean 52 82 Pulse Ox 97 98 Oxygen Delivery Method Room Air Room Air 05/03/24 12:44 05/03/24 12:44 05/03/24 13:00 Temperature 98 F 98 F Temperature Source Oral Oral Pulse Rate 89 103 H Respiratory Rate 16 28 H Respiratory Effort Respiratory Pattern Blood Pressure 90/76 127/68 H Blood Pressure Mean 80 87 Pulse Ox 98 98 Oxygen Delivery Method Room Air Room Air Room Air 05/03/24 15:00 05/03/24 15:21 Temperature 100 F H Temperature Source Pulse Rate 91 99 (more content not included)... Normal [facility] Epithelial cells.squamous LM Ql (Urine sed)Ordered By: Martin Meade on 2024 Epithelial cells.squamous LM.HPF (Urine sed) [#/Area] 0 /[HPF] 0-5 [facility] Glucose Ql (U)Ordered By: Maura Meade on 2024 Urine Glucose (UA) Normal mg/dl Normal [facility] H AND P Exam - [facility] 2024 H&P Exam - Hospitalist [facility] Medical Records Department [address] [place] [address] H P Exam - Hospitalist 05/03/24 1618 MR#: [id number] Acct: [id number] Name: SIERRA GARCÍA Rep #: [id number] : 1945 79 From: Sha Wilson DO PCP: Dr. aMrci Rose DO Status:REG ER Location: ED [facility] General Date of Service: 05/03/24 Chief Complaint: Weakness. incontinence. HPI Narrative SIERRA GARCÍA, is a 79 M who presents with weakness and incontinence. Symptoms been going on for several days now and patient is unable to adequately care for himself at home. So he presented to the emergency room and was found to have a urinary tract infection on his urinalysis and received ceftriaxone. Additionally he was noted to be in [place] with a creatinine of 2.5. His lactic acid was 2.3 the patient remained hemodynamically stable. He did receive IV fluids in the emergency room. Patient notes chronic weak urinary stream and difficulty starting a stream at times and most recently the incontinence. He has never had a urinary tract infection before. [facility] Medical History Leo hereditary optic atrophy Back pain Pneumonia, pneumococcal Pneumonia Arthritis HTN (hypertension) Hypothyroid Home Medications ???Medication ???Instructions ???Recorded ???Last Taken ???Type levothyroxine 50 mcg tablet 50 mcg PO DAILY thyroid 10/11/18 U nknown History lisinopril 10 5 - 6.25 mg PO DAILY PRN blood 08/24 Unknown History mg-hydrochlorothiazide 12.5 mg pressure tablet paroxetine HCl 30 mg tablet 30 mg PO DAILY mental health 10/11 Unknown History simvastatin 10 mg tablet 10 mg PO DAILY cholesterol 9 Unknown History gabapentin 100 mg capsule 100 mg PO TID PRN pain 02/16/24 Un known History brkgq-3b-txa-epa-fish oil-vit D3 1 cap PO DAILY 02/16/24 Unknown Hi story 350 mg-400 mg-1,000 unit capsule Allergy/AdvReac Type Severity Reaction Status Date / Time No Known Allergies Allergy Verified 05/03/24 11:17 Family History Mother Leo's hereditary optic atrophy Aunt Leo's hereditary optic atrophy Uncle Leo's hereditary optic atrophy Social History household members: none Smoking Status: Former smoker substance use type: does not use ROS ROS Narrative No fever or chills. No nausea or vomiting. Legally blind. All review of systems were negative except as mentioned above in the history of present illness and the other review of systems. Vital Signs Vital Signs Vital Signs: 05/03/24 11:14 05/03/24 11:54 05/03/24 11:54 Temperature 35.9 C L 37.1 C Temperature Source Temporal Oral Pulse Rate 114 H 98 Respiratory Rate 18 18 Respiratory Effort Normal Respiratory Pattern Normal Blood Pressure 76/40 L 102/72 Blood Pressure Mean 52 82 Pulse Ox 97 98 Oxygen Delivery Method Room Air Room Air 05/03/24 12:44 05/03/24 12:44 05/03/24 13:00 Temperature 36.6 C 36.6 C Temperature Source Oral Oral Pulse Rate 89 103 H Respiratory Rate 16 28 H Respiratory Effort Respiratory Pattern Blood Pressure 90/76 127/68 H Blood Pressure Mean 80 87 Pulse Ox 98 98 Oxygen Delivery Method Room Air Room Air Room Air 05/03/24 15:00 05/03/24 15:21 Temperature 37.7 C H Temperature Source Pulse Rate 91 99 Respiratory Rate 14 23 H Respiratory Effort Respiratory Pattern Blood Pressure 103/62 113/68 Blood Pressure Mean 75 83 Pulse Ox 97 97 Oxygen Delivery Method Room Air Weight Weight: 81.8 kg Body Mass Index (BMI) 24.4 Physical Exam Narrative - Physical Exam General: Alert, Oriented x3, Cooperative HEENT: Atraumatic, PERRLA, EOMI, Normocephalic Oral: Moist Mucosa, No Gingival or Mucosal Lesions/ Ulcerations Neck: Supple, No JVD, Negative Carotid Bruits Lungs: Clear to auscultation, Normal air movement Cardiovascular: Regular rate, Normal S1, Normal S2, No murmurs Abdomen: Bowel Sounds Present, Soft, Non Tender, Non-Distended, No Hepato-splenomegaly Extremities: No clubbing, No cyanosis, No edema Skin: No rashes, No breakdown Musculoskeletal: No Tenderness to Palpation of Joints or Extremities Neurological: Neuro grossly intact Psych/Mental Status: Normal Affect, Appropriate Results Lab / Micro Data Attestation: I reviewed the patient's lab results. 05/03/24 12:20 05/03/24 12:20 Labs: Laboratory Results - last 24 hr 05/03/24 12:20: WBC 14.9 H, RBC 4.68, Hgb 13.2, Hct 40.6, MCV 86.8, MCH 28.2, MCHC 32.5, RDW Std Deviation 45.6 H, RDW Coeff of Alan 14.3, Plt Count 228, MPV 10.8, Immature Gran % (Auto) 0.800, Neut % (Auto) 77.5 H, Lymph % (Auto) 6.8 L, (more content not included)... Normal [facility] Influenza virus A and B and SARS-CoV-2 (COVID-19) and Respiratory syncytial virus RNAOrdered By: Martin Meade on 2024 SARS-CoV-2 (COVID-19) RNA MARIEL+probe Ql (Unsp spec) [facility] International normalized rat io (INR) calculationOrdered By: Martin Meade on 2024 INR Coag (Bld) [Relative time] 0.9 {INR} [facility] Ketones Test strip Ql (U)Ord ered By: Martin Meade on 2024 Ketones Ql (U) Negative Negative [facility] Kidney and Bladderon 025 Kidney and Bladder [facility] Imaging Services [address] [place], [place] [address] Kidney and Bladder MR#: [id number] Acct: [id number] Name: SIERRA GARCÍA Rep #: [id number] : 1945 M 79 From: Dana Castellanos nd, MD PCP: Dr. Marci Rose DO Status: ADM IN Study: Kidney and Bladder Date of Exam: 05/03/24 Exam# [id number] Ordering Dr: Sha Wilson DO PROCEDURE: KIDNEY AND BLADDER REASON FOR EXAM: 79-year-old male, acute kidney injury. TECHNIQUE: Ultrasound of the kidneys and bladder COMPARISON: None. FINDINGS: Normal renal sizes, parenchymal thicknesses, and echotextures. No hydronephrosis. No large solid renal masses. Small right simple renal cyst. Grossly normal bladder contour. No large bladder wall mass visualized. RIGHT Kidney Size: 12.0 x 5.5 x 7.2 cm Volume: 249 mL Parenchymal Thickness: 17 mm (>14mm is normal) Cortical Thickness (if discernible): N/A (>6mm is normal) LEFT Kidney Size: 11.2 x 4.9 x 6.5 cm Volume: 184 mL Parenchymal Thickness: 17 mm (>14mm is normal) Cortical Thickness (if discernible): N/A (>6mm is normal) BLADDER: Prevoid volume: 102.8 mL Postvoid volume: N/A mL US/Kidney and Bladder IMPRESSION: NORMAL RENAL AND BLADDER ULTRASOUND. Reading Location: [id number] CC: Dr. Sha Wilson, DO; Dr. Marci Rose, DO Adjustment Clerk: Signed Normal [facility] Laboratory - Chemistry and C hemistry - challengeOrdered By: Martin Meade on 2024 AST [Catalytic activity/Vol] 23 U/L <38 [facility] Lactic Acidon 2024 Lactate [Moles/Vol] mmol/L Normal 0.0-2.0 [facility] Comment on above: Order Comment: Y Performed By: #### L 503.6005 #### [facility] Laboratory [address] [facility] [place], [address] Lactic acid measurementOrder ed By: Marshal Jack on 2024 Lactate [Moles/Vol] mmol/L 0.0-2.0 [facility] M100.678on 2024 M100.678 SARS-CoV-2 (COVID 19 ) Negative INFLUENZA A Negative INFLUENZA B Negative RSV PCR Negative Normal [facility] Comment on above: Performed By: #### M 100.2200 #### [facility] Laboratory [address] [facility] [place], [address] Microscopic analysis of urin e for red blood cells (RBC)Ordered By: Martin Meade on 2024 Urine RBC 5-10 SEEN /hpf 0-5 [facility] Mucus LM Ql (Urine sed)Order ed By: Martin Meade on 2024 Mucus Ql (Urine sed) 0 SEEN /hpf [facility] Nitrite Test strip Ql (U)Ord ered By: Martin Meade on 2024 Nitrite Ql (U) Negative Negative [facility] Partial Thromboplast Timeon 2024 aPTT Coag (Bld) [Time] 30.5 s Normal 24.1-36.2 [facility] Comment on above: Performed By: #### L 300.4310, L500.4050, M200.1000, L300.3900, L503.6005, L100.0100 ####[facility] [address] [place], [address] Pathologist [facility] [Interp]Ordered By: Martin Meade on 2024 Differential Pathologist's Review Reviewed [facility] Comment on above: Previous reported re sult: Kassy cheung Edited by: MAXWELL on 05/05/24:0924Neutrophilic leukocytosis.Clinical correlation necessary.Jeffrey Grijalva M.D. 05/05/24 AMENDED REPORT 05/05/24 0924 PATH REV previously reported as: Kassy cheung Protein Test strip Ql (U)Ord ered By: Martin Meade on 2024 Protein Ql (U) 100 mg/dl High Negative [facility] Prothrombin Time w/INRon INR Coag (PPP) [Relative time] 0.9 {INR} Normal [facility] Comment on above: Performed By: #### L 300.4310, L500.4050, M200.1000, L300.3900, L503.6005, L100.0100 #### [facility] Laboratory [address] [place], [address] PT Coag (PPP) [Time] 12.7 s Normal 11.7-14.9 [facility] Comment on above: Performed By: #### L 300.4310, L500.4050, M200.1000, L300.3900, L503.6005, L100.0100 #### [facility] Laboratory [address] [place], [place], [id number] Prothrombin timeOrdered By: Martin Meade on 2024 PT Coag (PPP) [Time] 12.7 s 11.7-14.9 [facility] Serum globulin measurementOr dered By: Martin Meade on 2024 Globulin (S) [Mass/Vol] 3.1 g/dL 2.2-4.2 [facility] Serum or plasma alanine hughes otransferase (ALT) measurementOrdered By: Martin Meade on 2024 ALT [Catalytic activity/Vol] 20 U/L <47 [facility] Serum or plasma albumin kiley urement (mass/volume)Ordered By: Martin Meade on 2024 Albumin [Mass/Vol] 3.8 g/dL 3.4-4.8 [facility] Serum or plasma albumin/glob ulin mass ratioOrdered By: Martin Meade on 2024 Albumin/Globulin [Mass ratio] 1.3 {ratio} 0.9-2.4 [facility] Serum or plasma alkaline dung sphatase measurementOrdered By: Martin Meade on 2024 ALP [Catalytic activity/Vol] 81 U/L 40-129 [facility] Total proteinOrdered By: Lela Meade on 2024 Protein [Mass/Vol] 6.9 g/dL 5.9-8.4 [facility] Urinalysis, Completeon 05-03 AMORPHOUS 1+ URATE Normal [facility] Comment on above: Order Comment: LAURENT CTOR TO SPECIFY Performed By: #### M 100.2200, L400.0001 ####[facility] [address] [place], [place], [id number] CAST,WAXY 0-5 SEEN Abnormal None Seen [facility] Comment on above: Order Comment: LAURENT CTOR TO SPECIFY Result Comment: CRIT ICAL VALUE *H CRITICAL VALUE CALLED TO Wicho CARTAGENA 05/03/24 1405 Francie Johns. RESULTS READ BACK BY . Performed By: #### M 100.2200, L400.0001 ####[facility] [address] [place], [address] CAST,WBC 5-10 SEEN Normal None Seen [facility] Comment on above: Order Comment: LAURENT CTOR TO SPECIFY Performed By: #### M 100.2200, L400.0001 ####[facility] [address] [place], [address] RBC 5-10 SEEN Normal 0-5 [facility] Comment on above: Order Comment: [facility] CTOR TO SPECIFY Performed By: #### M 100.2200, L400.0001 ####[facility] [address] [place], [address] WBC >100 SEEN Normal 0-5 [facility] Comment on above: Order Comment: [facility] CTOR TO SPECIFY Performed By: #### M 100.2200, L400.0001 ####[facility] [address] [place], [address] BACTERIA 0 SEEN Normal None Seen [facility] Comment on above: Order Comment: [facility] CTOR TO SPECIFY Performed By: #### M 100.2200, L400.0001 ####[facility] [address] [place], [address] EPI,SQUAMOUS 0 SEEN Normal 0-5 [facility] Comment on above: Order Comment: [facility] CTOR TO SPECIFY Performed By: #### M 100.2200, L400.0001 ####[facility] [address] [place], [address] Mucus Ql (Urine sed) 0 SEEN Normal [facility] Comment on above: Order Comment: LAURENT CTOR TO SPECIFY Performed By: #### M 100.2200, L400.0001 ####[facility] [address] [place], [address] Urine blood detectionOrdered By: Martin Meade on 2024 Urine Occult Blood 50 /ul High Negative [facility] Urine clarityOrdered By: Lela Meade on 2024 Clarity (U) Cloudy Clear [facility] Urine color determinationOrd ered By: Martin Meade on 2024 Color (U) Yellow Yellow [facility] Urine cultureOrdered By: Lela Meade on 2024 Bacteria identified Cx Nom (U) Presumptive E. coli Abnormal [facility] Bacteria identified Cx Nom (U) Positive Abnormal [facility] Urine leukocyte esterase det ection by dipstickOrdered By: Martin Meade on 2024 Leukocyte esterase Test strip Ql (U) 500 /ul High Negative [facility] Urine pHOrdered By: Martin farmer on 2024 pH (U) 5.0 [pH] 5.0 - 8.0 [facility] Urine sediment bacteria coun t by microscopy (number/high power field)Ordered By: Martin Meade on 2024 Bacteria LM.HPF (Urine sed) [#/Area] 0 /[HPF] None Seen [facility] Urine specific gravity measu rementOrdered By: Martin Meade on 2024 Specific gravity (U) [Rel density] 1.010 1.002-1.03 0 [facility] Urobilinogen Ql (U)Ordered B y: Martin Meade on 2024 Urine Urobilinogen Normal mg/dl Normal [facility] WBC casts LM.LPF (Urine sed) [#/Area]Ordered By: Martin Meade on 2024 Urine White Blood Cell Casts 5-10 SEEN /lpf None Seen [facility] Waxy casts LM Ql (Urine sed) Ordered By: Martin Meade on 2024 Urine Waxy Casts 0-5 SEEN /lpf High None Seen [facility] Comment on above: CRITICAL VALUE *HCRI TICAL VALUE CALLED TO Wicho CARTAGENA05/03/24 1405 Francie Johns.RESULTS READ BACK BY . White blood cell countOrdere d By: Martin Meade on 2024 Urine WBC >100 SEEN /hpf 0-5 [facility] aPTT Coag (PPP) [Time]Ordere d By: Martin Meade on 2024 aPTT Coag (Bld) [Time] 30.5 s 24.1-36.2 [facility] L3410.9999on 03-20-2024 [facility] Misc. Normal [facility] Comment on above: Order Comment: [id number] 0VITAMIN D Result Comment: TEST RESULTS LIMITS Vitamin D, 25-Hydroxy 48.2 ng/mL 30.0-100.0 Vitamin D deficiency has been defined by the [place] of Medicine and an Endocrine Society practice guideline as a level of serum 25-OH vitamin D less than 20 ng/mL (1,2). The Endocrine Society went on to further define vitamin D insufficiency as a level between 21 and 29 ng/mL (2). 1. IOM ([place] of [employer]). 2010. Dietary reference intakes for calcium and D. [place]: The National Academies Press. 2. Claudio MF, Kamilla [place], Leonid RANDOLPH, et al. Evaluation, treatment, and prevention of vitamin D deficiency: an Endocrine Society clinical practice guideline. JCEM. 2010; 96(7):1911-30. TESTING PERFORMED AT [facility]. ORIGINAL REPORT ON FILE IN LAB CONTAINS ADDITIONAL TEST SITE INFORMATION. Performed By: #### L 501.4020, L100.0100, L503.6620, L500.2500 #### [facility] Laboratory [address] [place], [address] Echo Completeon 03-15-2024 Echo Complete [facility] [address] [place] [address] Echo Complete 03/15/24 1401 MR#: [id number] Acct: [id number] Name: SIERRA GARCÍA Rep #: [id number] : 1945 78 From: Angi Jones MD Attending Dr: Dr. Marci Rose, Status: R EG CLI Ordering Dr: Marci Rose DO Date: 03/15/24 Location: [facility] Sex: M C Admitted: Reason For Study: Chest Pain Procedure This was a 2D Doppler, Color Flow transthoracic echocardiogram. The study was technically difficult. Exam performed in department. Left Ventricle Normal LV size. The estimated ejection fraction is 60 %. No evidence for diastolic dysfunction. No regional wall motion abnormalities noted. Right Ventricle Normal RV size. Normal systolic function. Atria The left and right atria are normal. Mitral Valve There is no mitral valve stenosis. No mitral valve insufficiency. Tricuspid Valve There is no tricuspid stenosis. Unable to estimate RV systolic pressure due to inadequate jet, pulmonary artery pressure probably normal. Aortic Valve Trisinus/trileaflet aortic valve. There is no aortic stenosis. No aortic valve insufficiency. Pulmonic Valve There is no pulmonic valvular stenosis. No pulmonic valve insufficiency. Great Vessels Normal aortic root. Pericardium/Pleural No pericardial effusion. MMode/2D Measurements Calculations LVIDd: 4.1 cm IVSd: 1.0 cm Ao root diam: 3.9 cm LVIDs: 2.9 cm LVPWd: 1.0 cm RVDd: 3.2 cm FS: 28.6 % LAV(MOD-bp): 36.7 ml LA A4 area: 14.7 cm2 LA dimension(2D): 3.5 cm LAV(MOD-bp) Indexed: 18.1 ml/m2 LAV(MOD-sp2): 31.4 ml LAV(MOD-sp4): 40.4 ml RA A4 area: 9.3 cm2 Time Measurements MV dec time: 0.28 sec Doppler Measurements Calculations MV E max naila: 52.1 cm/sec Lat Peak E' Naila: 9.2 cm/sec Med Peak E' Naila: 5.8 cm/sec MV A max naila: 80.0 cm/sec E/E' lat: 5.6 E/E' med: 9.0 MV E/A: 0.65 MV V2 max: 74.5 cm/sec MV P1/2t max naila: 50.0 cm/sec Ao V2 max: 96.2 cm/sec MV max P.2 mmHg MV P1/2t: 91.0 msec Ao max P.7 mmHg MV V2 mean: 35.0 cm/sec MV dec slope: 160.9 cm/sec2 MV mean P.57 mmHg MV V2 VTI: 20.3 cm MVA(P1/2t): 2.4 cm2 LV V1 max: 81.9 cm/sec LV V1 max P.7 mmHg ECHO/Echo Complete Interpretation Summary The estimated ejection fraction is 60 %. No evidence for diastolic dysfunction. Ordering Physician: Marci Rose Referring Physician: Marci Rose Performed By: Castillo Donato RCS 03/17/24 1449 Date Angi Jones MD CC: Dr. Marci Rose DO Date Dictated: 03/15/24 1401 Date Transcribed: 03/17/241448 Adjustment Clerk: Signed Normal [facility] Vitamin D 1,25-Dihydroxyon 1 VIT D 1,25 DIHY 45.3 pg/mL Normal 24.8-81.5 [facility] Comment on above: Result Comment: Perf ormed at: - [facility] [id number] Sleep Manager: Fernando Bolivar MD, Phone: [phone] Performed By: #### L 501.7999, L146.5644, Z449.9257, G032.9788 #### [facility] Laboratory [address] [facility] [place], [address] CTA Chest W/WO Contraston CTA Chest W/WO Contrast [facility] Imaging Services [address] [place], [place] [address] CTA Chest W/WO Contrast MR#: [id number] Acct: [id number] Name: ANTONIO GARCÍAZO Jesus Rep #: [id number] : 1945 M 78 From: Yevgeniy Rodas MD PCP: Dr. Marci Rose DO Status: REG CLI Study: CTA Chest W/WO Contrast Date of Exam: 03/03/24 Exam# [id number] Ordering [place]: [place] [id number] STUDY: CTA CHEST REASON FOR EXAM: Male, 78 years old. Elevated d-dimer RADIATION DOSAGE (If Supplied By Facility): CTDIvol = ( 9.53 ) mGy, DLP = ( 277.37 ) mGycm TECHNIQUE: The examination was performed with the intravenous administration of IV 100mL Isovue-370. Post-processing of the angiographic images was performed, with multiplanar reformation and 3D reconstruction. Individualized dose optimization techniques were used for this CT. COMPARISON: Chest x-ray February 16, 2024 FINDINGS: Normal enhancement of the main pulmonary artery and right and left pulmonary arteries. Normal enhancement of the bilateral peripheral pulmonary arteries. There is no demonstrated pulmonary embolism. There is atherosclerotic calcification of the aortic arch with tortuosity. There is no demonstrated aortic dissection. There are calcifications of the coronary arteries. Normal mediastinum. Normal hilar regions. Normal visualized trachea and bronchi. The lungs are well expanded. Normal pulmonary parenchyma. Normal pleura. Normal chest wall structures. There is dextro scoliosis and degenerative change of the spine. Normal visualized upper abdomen. CT/CTA Chest W/WO Contrast IMPRESSION: Normal CTA chest examination, without a demonstrated pulmonary embolism or arterial dissection. Electronically Signed: Yevgeniy Rodas MD at 13:45 EST , CC: Dr. Marci Rose DO Adjustment Clerk: Signed Normal [facility] 1,25-dihydroxyvitamin D3 [Ma ss/Vol]Ordered By: Marci Rose on 03-02-2024 Vitamin D 1,25-Dihydroxy 45.3 pg/mL 24.8-81.5 [facility] Comment on above: Performed at: [address] [id number] Director: Fernando Bolivar MD, Phone: [phone] Absolute neutrophil countOrd ered By: Marciaiden Rose on 03-02-2024 Neutrophils (Bld) [#/Vol] 4.6 10*3/uL 2.0-7.7 [facility] Albumin to globulin ratioOrd ered By: Marciaiden Rose on 03-02-2024 Albumin/Globulin [Mass ratio] 1.1 {ratio} 0.9-2.4 [facility] Basophil percentageOrdered B y: Marciaiden Rose on 03-02-2024 Basophils/100 WBC (Bld) 0.7 % 0-1 [facility] Bilirubin Test strip Ql (U)O rdered By: Marci Rose on 03-02-2024 Bilirubin Ql (U) Negative Negative [facility] Bilirubin, totalOrdered By: Marci Rose on 03-02-2024 Bilirubin [Mass/Vol] 0.40 mg/dL 0.20-1.00 [facility] Comment on above: For patients on eltr ombopag therapy, use of Dimension [place] TBIL is not recommended. Blood urea nitrogen (BUN)/cr eatinine ratioOrdered By: Marci Rose on 03-02-2024 Urea nitrogen/Creatinine [Mass ratio] 18.8 mg/mg 10- [facility] CBC W/Diff, Automatedon 02-06 Absolute Lymph 1.63 X10 3/uL Normal 0.83-4.51 [facility] Comment on above: Performed By: #### M 100.0 #### [facility] [address] [facility] [place], [address] Absolute Neut 4.6 X10 3/uL Normal 2.0-7.7 [facility] Comment on above: Performed By: #### M 100.2200 #### [facility] [address] [facility] [place], [address] Basophils/100 WBC (Bld) 0.7 % Normal 0-1 [facility] Comment on above: Performed By: #### M 100.2200 #### [facility] [address] [place], [address] Eosinophils/100 WBC (Bld) 4.6 % Normal 0-5 [facility] Comment on above: Performed By: #### M 100.2200 #### [facility] [address] [place], [address] Erythrocyte distribution width (RBC) [Ratio] 14.4 % Normal 11.6-14.6 [facility] Comment on above: Performed By: #### M 100.2200 #### [facility] [address] [place], [address] Hematocrit (Bld) [Volume fraction] 45.9 % Normal 40-54 [facility] Comment on above: Performed By: #### M 100.2200 #### [facility] [address] [place], [address] Hemoglobin (Bld) [Mass/Vol] 14.5 g/dL Normal 13.0-16.5 [facility] Comment on above: Performed By: #### M 100.2200 #### [facility] [address] [place], [address] IG% 0.300 Normal 0.0-0.9 [facility] Comment on above: Result Comment: IG% - Immature Granulocytes (promyelocytes, myelocytes and metamyelocytes) > 1% indicates that a LEFT SHIFT is Present. Performed By: #### M 100.2200 #### [facility] [address] [place], [address] Lymphocytes/100 WBC (Bld) 22.2 % Normal 19-41 [facility] Comment on above: Performed By: #### M 100.2200 #### [facility] [address] [place], [address] MCH (RBC) [Entitic mass] 28.0 pg Normal 27.0-32.0 [facility] Comment on above: Performed By: #### M 100.2200 #### [facility] [address] [place], [address] MCHC (RBC) [Mass/Vol] 31.6 g/dL Low 32-36 [facility] Comment on above: Performed By: #### M 100.2200 #### [facility] [address] [place], [address] MCV (RBC) [Entitic vol] 88.6 fL Normal 80-94 [facility] Comment on above: Performed By: #### M 100.2200 #### [facility] [address] [place], [address] Monocytes/100 WBC (Bld) 9.0 % Normal 0-10 [facility] Comment on above: Performed By: #### M 100.220 #### [facility] [address] [place], [address] Neutrophils/100 WBC (Bld) 63.2 % Normal 47-70 [facility] Comment on above: Performed By: #### M 100.0 #### [facility] [address] [place], [address] Nucleated RBC (Bld) [#/Vol] 0 10*3/uL Normal 0-5 [facility] Comment on above: Performed By: #### M 100.2200 #### [facility] [address] [place], [address] Platelet mean volume (Bld) [Entitic vol] 12.6 fL High 6.2-12.0 [facility] Comment on above: Performed By: #### M 100.2200 #### [facility] [address] [place], [address] Platelets (Bld) [#/Vol] 195 10*3/uL Normal 150-450 [facility] Comment on above: Performed By: #### M 100.2200 #### [facility] [address] [place], [address] RBC (Bld) [#/Vol] 5.18 10*6/uL Normal 4.6-6.2 [facility] Comment on above: Performed By: #### M 100.2200 #### [facility] [address] [place], [address] RDW SD 46.1 fl High 35.1-43.9 [facility] Comment on above: Performed By: #### M 100.2200 #### [facility] [address] [place], [address] WBC (Bld) [#/Vol] 7.3 10*3/uL Normal 4.4-11.0 [facility] Comment on above: Performed By: #### M 100.2200 #### [facility] [address] [place], [address] Carbon dioxide measurementOr dered By: Marci Rose on 03-02-2024 CO2 [Moles/Vol] 30.0 mmol/L 21.0-32.0 [facility] Chloride measurementOrdered By: Marci Rose on 03-02-2024 Chloride [Moles/Vol] 106 mmol/L 98-107 [facility] Comprehensive Metabolic Prof ilon 03-02-2024 Albumin [Mass/Vol] 3.9 g/dL Normal 3.2-5.0 [facility] Comment on above: Performed By: #### M 100.2200 #### [facility] [address] [place], [address] Albumin/Globulin [Mass ratio] 1.1 {ratio} Normal 0.9-2.4 [facility] Comment on above: Performed By: #### M 100.2200 #### [facility] [address] [place], [address] ALK P 76 U/L Normal 45-117 [facility] Comment on above: Performed By: #### M 100.2200 #### [facility] [address] [place], [address] ALT [Catalytic activity/Vol] 42 U/L Normal 16-61 [facility] [facility] Comment on above: Performed By: #### M 100.2200 #### [facility] [address] [place], [address] AST [Catalytic activity/Vol] 24 U/L Normal 15-37 [facility] Comment on above: Performed By: #### M 100.2200 #### [facility] [address] [place], [address] Bilirubin [Mass/Vol] 0.40 mg/dL Normal 0.20-1.00 [facility] Comment on above: Result Comment: For patients on eltrombopag therapy, use of Dimension Douglas TBIL is not recommended. Performed By: #### M 100.2200 #### [facility] [address] [place], [address] BUN/CRE 18.8 RATIO Normal 10-20 [facility] Comment on above: Performed By: #### M 100.2200 #### [facility] [address] [place], [address] CA,Total 10.2 mg/dL High 8.5-10.1 [facility] Comment on above: Performed By: #### M 100.2200 #### [facility] [address] [place], [address] Chloride [Moles/Vol] 106 mmol/L Normal 98-107 [facility] Comment on above: Performed By: #### M 100.2200 #### [facility] [address] [place], [address] CO2 [Moles/Vol] 30.0 mmol/L Normal 21.0-32.0 [facility] Comment on above: Performed By: #### M 100.2200 #### [facility] [address] [place], [address] Creatinine [Mass/Vol] 1.28 mg/dL Normal 0.70-1.30 [facility] Comment on above: Result Comment: The validity of the calculated GFR GFRAA in patients over 70 years has not been determined. Clinical correlation is essential. Performed By: #### M 100.2200 #### [facility] [address] [place], [address] EST GFR - AA 70 mL/min Normal >60 [facility] Comment on above: Result Comment: Afri can [place] GFR Calc Performed By: #### M 100.2200 #### [facility] [address] [place], [address] GAP 6 Normal 5-15 [facility] Comment on above: Performed By: #### M 100.2200 #### [facility] [address] [place], [address] GFR/1.73 sq M.predicted among non-blacks MDRD (S/P/Bld) [Vol rate/Area] 58 mL/min/{1.73_m2} Low >60 [facility] Comment on above: Result Comment: Non- GFR Calc Performed By: #### M 100.2200 #### [facility] [address] [place], [address] Globulin (S) [Mass/Vol] 3.6 g/dL Normal 2.2-4.2 [facility] Comment on above: Performed By: #### M 100.2200 #### [facility] [address] [place], [address] Glucose [Mass/Vol] 98 mg/dL Normal 74-106 [facility] Comment on above: Performed By: #### M 100.2200 #### [facility] [address] [place], [address] Potassium [Moles/Vol] 4.3 mmol/L Normal 3.5-5.1 [facility] Comment on above: Performed By: #### M 100.2200 #### [facility] [address] [place], [address] Sodium [Moles/Vol] 141 mmol/L Normal 136-145 [facility] Comment on above: Performed By: #### M 100.2200 #### [facility] [address] [place], [address] T PROT 7.5 g/dL Normal 6.4-8.2 [facility] Comment on above: Performed By: #### M 100.2200 #### [facility] [address] [place], [address] Urea nitrogen [Mass/Vol] 24 mg/dL High 7-18 [facility] Comment on above: Performed By: #### M 100.2200 #### [facility] [address] [place], [address] D-Dimer Quantitative (DVT/PE )on 03-02-2024 D-DIMER QUANT 0.65 FEU/ug/m Invalid Interpretation Code 0.27-0.49 [facility] Comment on above: Result Comment: D-Di maria elena ELEVATED (>0.49): Additional studies and clinical assessments are indicated to conclude diagnosis of: Deep Vein Thrombosis (DVT) or Pulmonary Embolism (PE) CRITICAL VALUE CALLED TO 03/02/24 Geraldo Boone. RESULTS READ BACK BY SAME. Performed By: #### M 100.2200 #### [facility] [address] [place], [address] D-dimer measurement for deep venous thrombosisOrdered By: Marci Rose on 03-02-2024 D-Dimer Quantitative (PE/DVT) 0.65 FEU/ug/m High 0.27-0.49 [facility] Comment on above: D-Dimer ELEVATED (>0 .49): Additional studies and clinicalassessments are indicated to conclude diagnosis of:Deep Vein Thrombosis (DVT) or Pulmonary Embolism (PE)CRITICAL VALUE CALLED TO I105/03/23 585 Jordi Boone.RESULTS READ BACK BY SAME. Eosinophil percentageOrdered By: Marci Rose on 03-02-2024 Eosinophils/100 WBC (Bld) 4.6 % 0-5 [facility] Epithelial cells.squamous LM Ql (Urine sed)Ordered By: Marci Rose on 03-02-2024 Epithelial cells.squamous LM.HPF (Urine sed) [#/Area] 0 /[HPF] 0-5 [facility] Erythrocyte distribution wid th ratioOrdered By: Marci Rose on 03-02-2024 Erythrocyte distribution width (RBC) [Ratio] 14.4 % 11.6-14.6 [facility] Erythrocyte distribution wid th standard deviationOrdered By: Marci Rose on 03-02-2024 Erythrocyte distribution width (RBC) [Entitic vol] 46.1 fL High 35.1-43.9 [facility] Estimated glomerular filtrat ion rate (GFR) AmericanOrdered By: Marci Rose on 03-02-2024 Estimated GFR (MDRD) Amer 70 mL/min >60 [facility] Comment on above: GFR Calc Glomerular filtration rate ( GFR) estimationOrdered By: Marci Rose on 03-02-2024 Estimated GFR (MDRD) Non-Af Amer 58 mL/min Low >60 [facility] Comment on above: Non- GFR Calc Glucose Ql (U)Ordered By: Flori Rose on 03-02-2024 Urine Glucose (UA) Normal mg/dl Normal [facility] Glucose measurementOrdered B y: Marci Rose on 03-02-2024 Glucose [Mass/Vol] 98 mg/dL 74-106 [facility] Hematocrit Auto (Bld) [Volum e fraction]Ordered By: Marci Rose on 03-02-2024 Hematocrit (Bld) [Volume fraction] 45.9 % 40-54 [facility] Hemoglobin measurementOrdere d By: Marci Rose on 03-02-2024 Hemoglobin (Bld) [Mass/Vol] 14.5 g/dL 13.0-16.5 [facility] High density lipoprotein (HD L) measurementOrdered By: Marci Rose on 03-02-2024 Cholesterol in HDL [Mass/Vol] 76 mg/dL >40 [facility] Comment on above: The drugs N-Acetylcy steine and Metamizole may falsely depress this assay. Reference Range HDL <40 mg/dL Low HDL Cholesterol HDL >or= 60 mg/dL High HDL Cholesterol Immature granulocytes/100 WB C Auto (Bld)Ordered By: Marci Rose on 03-02-2024 Immature granulocytes/100 WBC (Bld) 0.300 % 0.0-0.9 [facility] Comment on above: IG% - Immature Granu locytes (promyelocytes, myelocytes and metamyelocytes) > 1% indicates that a LEFT SHIFT is Present. Ketones Test strip Ql (U)Ord ered By: Marci Rose on 03-02-2024 Ketones Ql (U) Negative Negative [facility] - Chemistry and C hemistry - challengeOrdered By: Marci Rose on 03-02-2024 AST [Catalytic activity/Vol] 24 U/L 15-37 [facility] Lipid Profileon 03-02-2024 Cholesterol [Mass/Vol] 268 mg/dL High 200 [facility] Comment on above: Result Comment: <200 mg/dL Desirable 200-240 mg/dL Borderline >240 mg/dL High Risk Performed By: #### M 100.2200 #### [facility] [address] [place], [address] Cholesterol in HDL [Mass/Vol] 76 mg/dL Normal [facility] Comment on above: Result Comment: The drugs N-Acetylcysteine and Metamizole may falsely depress this assay. Reference Range HDL <40 mg/dL Low HDL Cholesterol HDL >or= 60 mg/dL High HDL Cholesterol Performed By: #### M 100.2200 #### [facility] [address] [place], [address] Cholesterol in LDL [Mass/Vol] 173 mg/dL High 0-130 [facility] Comment on above: Performed By: #### M 100.2200 #### [facility] [address] [place], [address] Cholesterol in VLDL [Mass/Vol] 19 mg/dL Normal 5-40 [facility] Comment on above: Performed By: #### M 100.2200 #### [facility] [address] [place], [address] Triglyceride [Mass/Vol] 94 mg/dL Normal [facility] Comment on above: Result Comment: The drugs N-Acetylcysteine and Metamizole may falsely depress this assay. Serum Triglycerides Reference Interval Normal <150 mg/dL Borderline high 150 - 199 mg/dL High 200 - 499 mg/dL Very High > or = 500 mg/dL Performed By: #### M 100.2200 #### [facility] [address] [place], [place], [id number] Low density lipoprotein (LDL ) cholesterol measurementOrdered By: Marci Rose on 03-02-2024 Cholesterol in LDL [Mass/Vol] 173 mg/dL High 0-130 [facility] Lymphocytes Auto (Unsp spec) [#/Vol]Ordered By: Marci Rose on 03-02-2024 Lymphocytes (Bld) [#/Vol] 1.63 10*3/uL 0.83-4.51 [facility] Lymphocytes/100 WBC Auto (Un sp spec)Ordered By: Marci Rose on 03-02-2024 Lymphocytes/100 WBC (Bld) 22.2 % 19-41 [facility] MCV (mean corpuscular volume ) determinationOrdered By: Marci Rose on 03-02-2024 MCV (RBC) [Entitic vol] 88.6 fL 80-94 [facility] Mean corpuscular hemoglobin (MCH) determinationOrdered By: Marci Rose on 03-02-2024 MCH (RBC) [Entitic mass] 28.0 pg 27.0-32.0 [facility] Mean corpuscular hemoglobin concentration (MCHC) determinationOrdered By: Marci Rose on 03-02-2024 MCHC (RBC) [Mass/Vol] 31.6 g/dL Low 32-36 [facility] Mean platelet volume determi nationOrdered By: Marci Rose on 03-02-2024 Platelet mean volume (Bld) [Entitic vol] 12.6 fL High 6.2-12.0 [facility] Microalb:Creat Ratio,Random URon 03-02-2024 Creatinine [Mass/Vol] 73.10 mg/dL Normal NO RAN GE EST. [facility] Comment on above: Performed By: #### L 501.4020, L100.0100, L503.6620, L500.2500 #### [facility] [address] [place], [place], [id number] MALB:CRE 18.5 mg/g CRE Normal <30 mg/g CRE [facility] Comment on above: Performed By: #### L 501.4020, L100.0100, L503.6620, L500.2500 #### [facility] [address] [place], [place], [id number] MICROALBUMIN,UR 13.5 mg/L Normal NO RANGE EST. [facility] Comment on above: Performed By: #### L 501.4020, L100.0100, L503.6620, L500.2500 #### [facility] [address] [place], [place], [address] Microscopic analysis of urin e for red blood cells (RBC)Ordered By: Marci Rose on 03-02-2024 Urine RBC 0 SEEN /hpf 0-5 [facility] Monocyte percentageOrdered B y: Marci Rose on 03-02-2024 Monocytes/100 WBC (Bld) 9.0 % 0-10 [facility] Mucus LM Ql (Urine sed)Order ed By: Marci Rose on 03-02-2024 Mucus Ql (Urine sed) 0 SEEN /hpf [facility] Neutrophil percentageOrdered By: Marci Rose on 03-02-2024 Neutrophils/100 WBC (Bld) 63.2 % 47-70 [facility] Nitrite Test strip Ql (U)Ord ered By: Marci Rose on 03-02-2024 Nitrite Ql (U) Negative Negative [facility] No Panel InformationOrdered By: Marci Rose on 03-02-2024 Miscellaneous Test [facility] above: TEST RESULTS LIMITSV itamin D, 25-Hydroxy 48.2 ng/mL 30.0-100.0 Vitamin D deficiency has been defined by the [place] of Medicine and an Endocrine Society practice guideline as a level of serum 25-OH vitamin D less than 20 ng/mL (1,2). The Endocrine Society went on to further define vitamin D insufficiency as a level between 21 and 29 ng/mL (2).1. IOM ([place] of Medicine). 2010. Dietary reference intakes for calcium and D. [place]: The National Academies Press.2. Claudio MF, Kam[place], Leonid RANDOLPH, et al. Evaluation, treatment, and prevention of vitamin D deficiency: an Endocrine Society clinical practice guideline. JCEM. 2010; 96(7):1911-30. TESTING PERFORMED AT [facility]. ORIGINAL REPORT ON FILE IN LAB CONTAINS ADDITIONAL TEST SITE INFORMATION. Nucleated red blood cell per centageOrdered By: Marci Rose on 03-02-2024 Nucleated RBC/100 WBC (Bld) [Ratio] 0 % 0-5 [facility] Platelet countOrdered By: Flori Rose on 03-02-2024 Platelets (Bld) [#/Vol] 195 10*3/uL 150-450 [facility] Potassium measurementOrdered By: Marci Rose on 03-02-2024 Potassium [Moles/Vol] 4.3 mmol/L 3.5-5.1 [facility] Protein Test strip Ql (U)Ord ered By: Marci Rose on 03-02-2024 Protein Ql (U) Negative Negative [facility] RBC Auto (Bld) [#/Vol]Ordere d By: Marci Rose on 03-02-2024 RBC (Bld) [#/Vol] 5.18 10*6/uL 4.6-6.2 [facility] Random urine microalbumin me asurementOrdered By: Marci Rose on 03-02-2024 Urine Random Microalbumin 13.5 mg/L NO RANGE EST. [facility] Serum anion gap measurementO rdered By: Marci Rose on 03-02-2024 Anion gap [Moles/Vol] 6 mmol/L 5-15 [facility] Serum globulin measurementOr dered By: Marci Rose on 03-02-2024 Globulin (S) [Mass/Vol] 3.6 g/dL 2.2-4.2 [facility] Serum or plasma alanine hughes otransferase (ALT) measurementOrdered By: Marci Rose on 03-02-2024 ALT [Catalytic activity/Vol] 42 U/L 16-61 [facility] Serum or plasma albumin kiley urement (mass/volume)Ordered By: Marci Rose on 03-02-2024 Albumin [Mass/Vol] 3.9 g/dL 3.2-5.0 [facility] Serum or plasma alkaline dung sphatase measurementOrdered By: Marci Rose on 03-02-2024 ALP [Catalytic activity/Vol] 76 U/L 45-117 [facility] Serum or plasma calcium kiley urement (mass/volume)Ordered By: Marci Rose on 03-02-2024 Calcium [Mass/Vol] 10.2 mg/dL High 8.5-10.1 [facility] Serum or plasma cholesterol measurement (mass/volume)Ordered By: Marci Rose on 03-02-2024 Cholesterol [Mass/Vol] 268 mg/dL High <200 [facility] Comment on above: <200 mg/dL Desirable 200-240 mg/dL Borderline >240 mg/dL High Risk Serum or plasma creatinine m easurement (mass/volume)Ordered By: Marci Rose on 03-02-2024 Creatinine [Mass/Vol] 1.28 mg/dL 0.70-1.30 [facility] Comment on above: The validity of the calculated GFR & GFRAA in patients over 70 years has not been determined. Clinical correlation is essential. Serum or plasma urea nitroge n measurement (mass/volume)Ordered By: Marci Rose on 03-02-2024 Urea nitrogen [Mass/Vol] 24 mg/dL High 7-18 [facility] Sodium levelOrdered By: Aaliyah Rose on 03-02-2024 Sodium [Moles/Vol] 141 mmol/L 136-145 [facility] TSH QnOrdered By: Marci thomas on 03-02-2024 Thyroid Stimulating Hormone (TSH) 2.810 uIU/mL 0.358-3.74 0 [facility] Thyroid Stim Hormone (TSH)on 03-02-2024 TSH 2.810 uIU/mL Normal 0.358-3.74 0 [facility] Comment on above: Performed By: #### M 100.2200 #### [facility] [address] [place], [place], [id number] Total proteinOrdered By: Mckenna Rose on 03-02-2024 Protein [Mass/Vol] 7.5 g/dL 6.4-8.2 [facility] Triglycerides measurementOrd ered By: Marci Rose on 03-02-2024 Triglyceride [Mass/Vol] 94 mg/dL <199 [facility] Comment on above: The drugs N-Acetylcy steine and Metamizole may falsely depress this assay.Serum Triglycerides Reference Interval Normal <150 mg/dL Borderline high 150 - 199 mg/dL High 200 - 499 mg/dL Very High > or = 500 mg/dL Urinalysis, Completeon 03-02 BILIRUBIN URINE Negative Normal Negative [facility] Comment on above: Order Comment: Urine , Random Performed By: #### M 100.2200 #### [facility] [address] [place], [address] Clarity (U) Clear Normal Clear [facility] Comment on above: Order Comment: Urine , Random Performed By: #### M 100.2200 #### [facility] [address] [place], [address] Color (U) Straw Normal Yellow [facility] Comment on above: Order Comment: Urine , Random Performed By: #### M 100.2200 #### [facility] [address] [place], [address] GLUCOSE, UR Normal Normal Normal [facility] Comment on above: Order Comment: Urine , Random Performed By: #### M 100.2200 #### [facility] [address] [place], [address] KETONE UR Negative Normal Negative [facility] Comment on above: Order Comment: Urine , Random Performed By: #### M 100.2200 #### [facility] [address] [place], [address] LEUK ESTERASE Negative Normal Negative [facility] Comment on above: Order Comment: Urine , Random Performed By: #### M 100.2200 #### [facility] [address] [place], [address] Nitrite Ql (U) Negative Normal Negative [facility] Comment on above: Order Comment: Urine , Random Performed By: #### M 100.2200 #### [facility] [address] [place], [address] OCCULT BLOOD-UR Negative Normal Negative [facility] Comment on above: Order Comment: Urine , Random Performed By: #### M 100.2200 #### [facility] [address] [place], [address] pH UR 6.5 Normal 5.0 - 8.0 [facility] Comment on above: Order Comment: Urine , Random Performed By: #### M 100.2200 #### [facility] [address] [place], [address] PROT DIPSTX Negative Normal Negative [facility] Comment on above: Order Comment: Urine , Random Performed By: #### M 100.2200 #### [facility] [address] [place], [address] SP.GR. DIPSTX 1.010 Normal 1.002-1.03 0 [facility] Comment on above: Order Comment: Urine , Random Performed By: #### M 100.2200 #### [facility] [address] [place], [address] UROBILI Normal Normal Normal [facility] Comment on above: Order Comment: Urine , Random Performed By: #### M 100.2200 #### [facility] [address] [place], [address] BACTERIA 0 SEEN Normal None Seen [facility] Comment on above: Order Comment: Urine , Random Performed By: #### M 100.2200 #### [facility] [address] [place], [address] EPI,SQUAMOUS 0 SEEN Normal 0-5 [facility] Comment on above: Order Comment: Urine , Random Performed By: #### M 100.2200 #### [facility] [address] [place], [address] Mucus Ql (Urine sed) 0 SEEN Normal [facility] Comment on above: Order Comment: Urine , Random Performed By: #### M 100.2200 #### [facility] [address] [place], [address] RBC 0 SEEN Normal 0-5 [facility] Comment on above: Order Comment: Urine , Random Performed By: #### M 100.2200 #### [facility] [address] [place], [address] WBC 0 SEEN Normal 0-5 [facility] Comment on above: Order Comment: Urine , Random Performed By: #### M [id number] #### [facility] [place], [address] Urine albumin/creatinine rat io for detection of microalbuminuriaOrdered By: Marci Rose on 03-02-2024 Urine Microalbumin/Creatinine Ratio 18.5 mg/g CRE <30 [facility] Urine blood detectionOrdered By: Marci Rose on 03-02-2024 Urine Occult Blood Negative Negative [facility] Urine clarityOrdered By: Mckenna Rose on 03-02-2024 Clarity (U) Clear Clear [facility] Urine color determinationOrd ered By: Marci Rose on 03-02-2024 Color (U) Straw Yellow [facility] Urine creatinine measurement (mass/volume)Ordered By: Marci Rose on 03-02-2024 Creatinine (U) [Mass/Vol] 73.10 mg/dL NO RANGE EST. [facility] Urine leukocyte esterase det ection by dipstickOrdered By: Marci Rose on 03-02-2024 Leukocyte esterase Test strip Ql (U) Negative Negative [facility] Urine pHOrdered By: Marci Rose on 03-02-2024 pH (U) 6.5 [pH] 5.0 - 8.0 [facility] Urine sediment bacteria coun t by microscopy (number/high power field)Ordered By: Marci Rose on 03-02-2024 Bacteria LM.HPF (Urine sed) [#/Area] 0 /[HPF] None Seen [facility] Urine specific gravity measu rementOrdered By: Marci Rose on 03-02-2024 Specific gravity (U) [Rel density] 1.010 1.002-1.03 0 [facility] Urobilinogen Ql (U)Ordered B y: Marci Rose on 03-02-2024 Urine Urobilinogen Normal mg/dl Normal [facility] Very low density lipoprotein (VLDL) cholesterol measurementOrdered By: Marci Rose on 03-02-2024 VLDL Cholesterol 19 mg/dL 5-40 [facility] White blood cell (WBC) count Ordered By: Marci Rose on 03-02-2024 WBC (Bld) [#/Vol] 7.3 10*3/uL 4.4-11.0 [facility] White blood cell countOrdere d By: Marci Rose on 03-02-2024 Urine WBC 0 SEEN /hpf 0-5 [facility] 12 Lead EKGon 02-16-2024 12 Lead EKG [facility] [address] [place] [address] 12 Lead EKG 02/16/24 1742 MR#: [id number] Acct: [id number] Name: SIERRA GARCÍA Rep #: [id number] : 1945 78 From: Valentin Gonzalez MD Attending Dr: Status: DEP ER Ordering Dr: Yevgeniy Andrew MD Date: 02/16/24 Location: ED Sex: M C Admitted: Test Reason : Blood Pressure : */* mmHG Vent. Rate : 80 BPM Atrial Rate : 70 BPM P-R Int : 140 ms QRS Dur : 94 ms QT Int : 370 ms P-R-T Axes : 39 -33 44 degrees QTcB Int : 426 ms Sinus rhythm with Premature supraventricular complexes Left axis deviation Abnormal ECG Confirmed by CARLOS SILVESTRE, VALENTIN ([id number]), international editorial producer BRENDA WINCHESTER ([id number]) on 02/23/2024 2:28:16 PM Referred By: Confirmed By: VALENTIN GONZALEZ MD 02/23/24 1428 Date Valentin Gonzalez MD CC: Dr. Yevgeniy Andrew MD; Dr. Marci Rose, DO Signed Normal [facility] Absolute neutrophil countOrd ered By: Yevgeniy Andrew on 02-16-2024 Neutrophils (Bld) [#/Vol] 6.4 10*3/uL 2.0-7.7 [facility] BNP (brain natriuretic pepti de measurement)Ordered By: Yevgeniy Andrew on 02-16-2024 Natriuretic peptide B (Bld) [Mass/Vol] 18.2 pg/mL 0-100 [facility] BNP,B-Type NATRIURETIC PEPTI Misbah 02-16-2024 Natriuretic peptide B (Bld) [Mass/Vol] 18.2 pg/mL Normal 0-100 [facility] Comment on above: Performed By: #### L 501.4020, L100.0100, L503.6620, L500.2500 #### [facility] [address] [place], [address] Basic Metabolic Profile (BMP )on 02-16-2024 BUN/CRE 21.5 RATIO High 10-20 [facility] Comment on above: Order Comment: 'TROP ' Serial specimen #1, #2 or #3: 1 Performed By: #### L 501.4020, L100.0100, L503.6620, L500.2500 #### [facility] [address] [place], [address] CA,Total 11.1 mg/dL High 8.5-10.1 [facility] Comment on above: Order Comment: 'TROP ' Serial specimen #1, #2 or #3: 1 Performed By: #### L 501.4020, L100.0100, L503.6620, L500.2500 #### [facility] [address] [place], [address] Chloride [Moles/Vol] 106 mmol/L Normal 98-107 [facility] Comment on above: Order Comment: 'TROP ' Serial specimen #1, #2 or #3: 1 Performed By: #### L 501.4020, L100.0100, L503.6620, L500.2500 #### [facility] [address] [place], [address] CO2 [Moles/Vol] 25.0 mmol/L Normal 21.0-32.0 [facility] Comment on above: Order Comment: 'TROP ' Serial specimen #1, #2 or #3: 1 Performed By: #### L 501.4020, L100.0100, L503.6620, L500.2500 #### [facility] [address] [place], [address] Creatinine [Mass/Vol] 1.35 mg/dL High 0.70-1.30 [facility] Comment on above: Order Comment: 'TROP ' Serial specimen #1, #2 or #3: 1 Result Comment: The validity of the calculated GFR GFRAA in patients over 70 years has not been determined. Clinical correlation is essential. Performed By: #### L 501.4020, L100.0100, L503.6620, L500.2500 #### [facility] [address] [place], [address] ECRCL 51.09 ml/min Normal [facility] Comment on above: Order Comment: 'TROP ' Serial specimen #1, #2 or #3: 1 Performed By: #### L 501.4020, L100.0100, L503.6620, L500.2500 #### [facility] [address] [place], [address] EST GFR - AA 66 mL/min Normal >60 [facility] Comment on above: Order Comment: 'TROP ' Serial specimen #1, #2 or #3: 1 Result Comment: Afri can [place] GFR Calc Performed By: #### L 501.4020, L100.0100, L503.6620, L500.2500 #### [facility] [address] [place], [address] GAP 5 Normal 5-15 [facility] Comment on above: Order Comment: 'TROP ' Serial specimen #1, #2 or #3: 1 Performed By: #### L 501.4020, L100.0100, L503.6620, L500.2500 #### [facility] [address] [place], [address] GFR/1.73 sq M.predicted among non-blacks MDRD (S/P/Bld) [Vol rate/Area] 55 mL/min/{1.73_m2} Low >60 [facility] Comment on above: Order Comment: 'TROP ' Serial specimen #1, #2 or #3: 1 Result Comment: Non- GFR Calc Performed By: #### L 501.4020, L100.0100, L503.6620, L500.2500 #### [facility] [address] [place], [address] Glucose [Mass/Vol] 87 mg/dL Normal 74-106 [facility] Comment on above: Order Comment: 'TROP ' Serial specimen #1, #2 or #3: 1 Performed By: #### L 501.4020, L100.0100, L503.6620, L500.2500 #### [facility] [address] [place], [address] Potassium [Moles/Vol] 5.2 mmol/L High 3.5-5.1 [facility] Comment on above: Order Comment: 'TROP ' Serial specimen #1, #2 or #3: 1 Result Comment: Mode rate Hemolysis, Result may be falsely increased. Performed By: #### L 501.4020, L100.0100, L503.6620, L500.2500 #### [facility] [address] [place], [address] Sodium [Moles/Vol] 136 mmol/L Normal 136-145 [facility] Comment on above: Order Comment: 'TROP ' Serial specimen #1, #2 or #3: 1 Performed By: #### L 501.4020, L100.0100, L503.6620, L500.2500 #### [facility] [address] [place], [address] Urea nitrogen [Mass/Vol] 29 mg/dL High 7-18 [facility] Comment on above: Order Comment: 'TROP ' Serial specimen #1, #2 or #3: 1 Performed By: #### L 501.4020, L100.0100, L503.6620, L500.2500 #### [facility] [address] [place], [address] Basophil percentageOrdered B y: Yevgeniy Andrew on 02-16-2024 Basophils/100 WBC (Bld) 0.5 % 0-1 [facility] Blood urea nitrogen (BUN)/cr eatinine ratioOrdered By: Yevgeniy Andrew on 02-16-2024 Urea nitrogen/Creatinine [Mass ratio] 21.5 mg/mg High 10-20 [facility] CBC W/Diff, Automatedon 02-05 SMEAR COMMENT SCANNED Normal [facility] Comment on above: Performed By: #### L 501.4020, L100.0100, L503.6620, L500.2500 #### [facility] [address] [place], [address] Carbon dioxide measurementOr dered By: Yevgeniy Andrew on 02-16-2024 CO2 [Moles/Vol] 25.0 mmol/L 21.0-32.0 [facility] Chest PA and Lateralon 02-15 Chest PA and Lateral [facility] Imaging Services [address] [facility] [place] [address] Chest PA and Lateral MR#: [id number] Acct: [id number] Name: SIERRA GARCÍA Rep #: [id number] : 1945 M 78 From: Wojciech Sharif MD PCP: Dr. Marci Rose, DO Status: REG ER Study: Chest PA and Lateral Date of Exam: 02/16/24 Exam# [id number] Ordering Dr: [place] [id number] STUDY: X-RAY CHEST REASON FOR EXAM: Male, 78 years old. sob TECHNIQUE: PA and lateral COMPARISON: March 10, 2022 FINDINGS: There is diminished inspiratory effort however the lungs are clear.. There is no demonstrated pleural abnormality. Normal size heart. Normal mediastinum and bernardino. Normal visualized pulmonary arteries. Normal visualized aortic arch and descending thoracic aorta. Dorsal spine demonstrates scoliosis and degenerative changes. Normal visualized ribs, clavicles, and shoulders. There is no demonstrated abnormality of the visualized soft tissue structures of the upper abdomen. RAD/Chest PA and Lateral IMPRESSION: Diminished inspiratory effort. No acute cardio pulmonary pathology. Electronically Signed: Wojciech Sharif MD at 19:00 EST Reading Location ID and State: [facility] / [place] Tel , Service support , CC: Dr. Yevgeniy Andrew MD; Dr. Marci Rose DO Adjustment Clerk: Signed Normal [facility] Chloride measurementOrdered By: Yevgeniy Andrew on 02-16-2024 Chloride [Moles/Vol] 106 mmol/L 98-107 [facility] Emergency Department Summary on 02-16-2024 Emergency Department Summary [facility] Medical Records Department [address] [place] [address] Emergency Department Summary 02/16/24 MR#: [id number] Acct: [id number] Name: SIERRA GARCÍA Rep #: [id number] : 1945 78 From: Yevgeniy Andrew MD PCP: Dr. Marci Rose DO Status:REG ER Location: ED ADDENDUM by Dr. Yevgeniy Andrew MD on 02/16/24 at 2019 At discharge patient tells me he eats a lot of bananas, every day. I advised him to discontinue that until he sees his doctor and has repeat blood work, that will probably be enough to get his potassium down since it was only 5.2. 02/16/242019 Cosigner Signature (if applicable): cc: Dr. Marci Rsoe DO * Signed HPI History of Present Illness Chief Complaint: Shortness of Breath Informant: patient Narrative Narrative: 78-year-old male states 3 days ago, he got off of his e-bike and walked into the local [place] and was dyspneic due to this, it got a lot better quickly when he rested. Ever since then, he states he has been walking fine without getting dyspneic, but when he bends over such as at night to take off his shoes/socks, he gets a little out of breath but has no orthopnea or dyspnea otherwise. No associated chest discomfort, near-syncope, syncope. He states he is already limited with regards to walking because of his spinal stenosis, has been feeling a little more tired than usual lately, he states the spinal stenosis makes him feel weak and tired all the time and is his most limiting issue when it comes to getting around. He has had no cough. He has had a runny nose. No fevers or chills. No GI symptoms such as vomiting or diarrhea or pain. However he states he is here because he is concerned he may have pneumonia because he talked to several people who told him that pneumonia was going around lately and he should not write his mild symptoms off. [facility] Medical History Back pain Pneumonia, pneumococcal Pneumonia Arthritis HTN (hypertension) Hypothyroid Home Medications ???Medication ???Instructions ???Recorded ???Last Taken ???Type levothyroxine 50 mcg tablet 50 mcg PO DAILY thyroid 10/11/18 Unknown History lisinopril 10 5 - 6.25 mg PO DAILY blood pressure 10/11/18 Unknown History mg-hydrochlorothiazide 12.5 mg tablet paroxetine HCl 30 mg tablet 30 mg PO DAILY mental health 10/11/18 Unknown History simvastatin 10 mg tablet 10 mg PO DAILY cholesterol 10/11/18 Unknown History gabapentin 100 mg capsule 100 mg PO TID 02/16/24 Unknown History iovax-[id number]-fish oil-vit D3 1 cap PO DAILY 02/16/24 Unknown History 350 mg-400 mg-1,000 unit capsule Allergy/AdvReac Type Severity Reaction Status Date / Time No Known Allergies Allergy Verified 02/16/24 15:59 Family History Mother Leo's hereditary optic atrophy Aunt Leo's hereditary optic atrophy Uncle Leo's hereditary optic atrophy Surgical History no surgical history Social History household members: none Smoking Status: Former smoker substance use type: does not use ROS ROS ED Constitutional Constitutional ED: Reports fatigue; Denies chills or fever(s) Eyes Eyes: Denies change in vision or diplopia ENT ENT ED: Reports rhinorrhea; Denies sore throat Cardiovascular Cardiovascular: Denies chest pain, palpitations or syncope Respiratory/Chest Respiratory/Chest: Reports as per HPI and dyspnea on exertion; Denies cough or dyspnea Gastrointestinal Gastrointestinal: Denies abdominal pain, diarrhea, nausea or vomiting Genitourinary Genitourinary ED: Denies dysuria or hematuria Musculoskeletal Musculoskeletal: Denies neck pain Integumentary Denies abscess or rash Neurologic Neurologic: Denies headache(s), paresthesias or weakness Psychiatric Psychiatric: Denies anxiety or suicidal thoughts EXAM Physical Exam Const Vital Signs: 02/16/24 15:59 02/16/24 17:05 02/16/24 17:36 Temperature 98.1 F Temperature Source Oral Pulse Rate 53 L Respiratory Rate 18 Respiratory Effort Normal Non-Labored Respiratory Depth Normal Respiratory Pattern Normal Blood Pressure 154/80 H Blood Pressure Mean 104 Pulse Ox 95 Oxygen Delivery Method Room Air Room Air Room Air 02/16/24 17:45 02/16/24 17:47 02/16/24 18:00 Temperature Temperature Source Pulse Rate 85 81 Respiratory Rate 26 H 23 H Respiratory Effort Respiratory Depth Respiratory Pattern Blood Pressure 156/108 H 159/89 H Blood Pressure Mean 123 111 Pulse Ox Oxygen Delivery Method 02/16/24 18:15 02/16/24 18:30 02/16/24 18:45 Temperature Temperature Source Pulse R (more content not included)... Normal [facility] Eosinophil percentageOrdered By: Yevgeniy Andrew on 02-16-2024 Eosinophils/100 WBC (Bld) 2.2 % 0-5 [facility] Erythrocyte distribution wid th ratioOrdered By: Yevgeniy Andrew on 02-16-2024 Erythrocyte distribution width (RBC) [Ratio] 14.0 % 11.6-14.6 [facility] Erythrocyte distribution wid th standard deviationOrdered By: Yevgeniy Andrew on 02-16-2024 Erythrocyte distribution width (RBC) [Entitic vol] 43.6 fL 35.1-43.9 [facility] Estimated glomerular filtrat ion rate (GFR) AmericanOrdered By: Yevgeniy Andrew on 02-16-2024 Estimated GFR (MDRD) Amer 66 mL/min >60 [facility] Comment on above: GFR Calc Estimation of creatinine anni aranceOrdered By: Yevgeniy Andrew on 02-16-2024 Estimated Creatinine Clearance Calc 51.09 ml/min [facility] Glomerular filtration rate ( GFR) estimationOrdered By: Yevgeniy Andrew on 02-16-2024 Estimated GFR (MDRD) Non-Af Amer 55 mL/min Low >60 [facility] Comment on above: Non- GFR Calc Glucose measurementOrdered B y: Yevgeniy Andrew on 02-16-2024 Glucose [Mass/Vol] 87 mg/dL 74-106 [facility] Hematocrit Auto (Bld) [Volum e fraction]Ordered By: Yevgeniy Andrew on 02-16-2024 Hematocrit (Bld) [Volume fraction] 45.8 % 40-54 [facility] Hemoglobin measurementOrdere d By: Yevgeniy Andrew on 02-16-2024 Hemoglobin (Bld) [Mass/Vol] 15.2 g/dL 13.0-16.5 [facility] Immature granulocytes/100 WB C Auto (Bld)Ordered By: Yevgeniy Andrew on 02-16-2024 Immature granulocytes/100 WBC (Bld) 0.300 % 0.0-0.9 [facility] Comment on above: IG% - Immature Granu locytes (promyelocytes, myelocytes and metamyelocytes) > 1% indicates that a LEFT SHIFT is Present. L501.4020on 02-16-2024 TROPONIN-I HS 6 pg/mL Normal 3.0-78.0 [facility] Comment on above: Order Comment: 'TROP ' Serial specimen #1, #2 or #3: 1 Result Comment: Tory jacobs Note: New Test Units and Gender Specific Reference Ranges. For more information see Policy Stat Procedure [facility] High Sensitivity Troponin (TNIH) and attachments. Performed By: #### L 501.4020, L100.0100, L503.6620, L500.2500 #### [facility] [address] [place], [address] Lymphocytes Auto (Unsp spec) [#/Vol]Ordered By: Yevgeniy Andrew on 02-16-2024 Lymphocytes (Bld) [#/Vol] 1.70 10*3/uL 0.83-4.51 [facility] Lymphocytes/100 WBC Auto (Un sp spec)Ordered By: Yevgeniy Andrew on 02-16-2024 Lymphocytes/100 WBC (Bld) 18.6 % Low 19-41 [facility] MCV (mean corpuscular volume ) determinationOrdered By: Yevgeniy Andrew on 02-16-2024 MCV (RBC) [Entitic vol] 85.9 fL 80-94 [facility] Manual differential comment Valdemar (Bld) [Interp]Ordered By: Yevgeniy Andrew on 02-16-2024 Differential Comment SCANNED [facility] Mean corpuscular hemoglobin (MCH) determinationOrdered By: Yevgeniy Andrew on 02-16-2024 MCH (RBC) [Entitic mass] 28.5 pg 27.0-32.0 [facility] Mean corpuscular hemoglobin concentration (MCHC) determinationOrdered By: Yevgeniy Andrew on 02-16-2024 MCHC (RBC) [Mass/Vol] 33.2 g/dL 32-36 [facility] Mean platelet volume determi nationOrdered By: Yevgeniy Andrew on 02-16-2024 Platelet mean volume (Bld) [Entitic vol] 12.3 fL High 6.2-12.0 [facility] Monocyte percentageOrdered B y: Yevgeniy Andrew on 02-16-2024 Monocytes/100 WBC (Bld) 8.5 % 0-10 [facility] Neutrophil percentageOrdered By: Yevgeniy Andrew on 02-16-2024 Neutrophils/100 WBC (Bld) 69.9 % 47-70 [facility] Nucleated red blood cell per centageOrdered By: Yevgeniy Andrew on 02-16-2024 Nucleated RBC/100 WBC (Bld) [Ratio] 0 % 0-5 [facility] Platelet countOrdered By: Zeynep Andrew on 02-16-2024 Platelets (Bld) [#/Vol] 151 10*3/uL 150-450 [facility] Potassium measurementOrdered By: Yevgeniy Andrew on 02-16-2024 Potassium [Moles/Vol] 5.2 mmol/L High 3.5-5.1 [facility] Comment on above: Moderate Hemolysis, Result may be falsely increased. RBC Auto (Bld) [#/Vol]Ordere d By: Yevgeniy Andrew on 02-16-2024 RBC (Bld) [#/Vol] 5.33 10*6/uL 4.6-6.2 [facility] Serum anion gap measurementO rdered By: Yevgeniy Andrew on 02-16-2024 Anion gap [Moles/Vol] 5 mmol/L 5-15 [facility] Serum or plasma calcium kiley urement (mass/volume)Ordered By: Yevgeniy Andrew on 02-16-2024 Calcium [Mass/Vol] 11.1 mg/dL High 8.5-10.1 [facility] Serum or plasma creatinine m easurement (mass/volume)Ordered By: Yevgeniy Andrew on 02-16-2024 Creatinine [Mass/Vol] 1.35 mg/dL High 0.70-1.30 [facility] Comment on above: The validity of the calculated GFR & GFRAA in patients over 70 years has not been determined. Clinical correlation is essential. Serum or plasma urea nitroge n measurement (mass/volume)Ordered By: Yevgeniy Andrew on 02-16-2024 Urea nitrogen [Mass/Vol] 29 mg/dL High 7-18 [facility] Sodium levelOrdered By: Zaki Andrew on 02-16-2024 Sodium [Moles/Vol] 136 mmol/L 136-145 [facility] Troponin IOrdered By: Canelo Andrew on 02-16-2024 Troponin I High Sensitivity 6 pg/mL 3.0-78.0 [facility] Comment on above: Please Note: New Chandni t Units and Gender Specific Reference Ranges. For more information see Policy Stat Procedure [facility] High Sensitivity Troponin (TNIH) and attachments. White blood cell (WBC) count Ordered By: Yevgeniy Andrew on 02-16-2024 WBC (Bld) [#/Vol] 9.1 10*3/uL 4.4-11.0 [facility] CALCIFIDIOL (48014) VIT D 25 Ordered By: Costing Manager on 11-12-2022 25-hydroxyvitamin D [Mass/Vol] 38.6 ng/mL Normal 30.0-100.0 [facility]; [facility] Work Phone: CBC W/AUTO DIFF WBC ([id number])O rdered By: Costing Manager on 11-12-2022 Basophils (Bld) [#/Vol] 0.0 10*3/uL Normal 0.0-0.2 [facility]; [facility] Work Phone: Basophils/100 WBC (Bld) 1 % Normal [facility]; [facility] Work Phone: Eosinophils (Bld) [#/Vol] 0.4 10*3/uL Normal 0.0-0.4 [facility]; [facility] Work Phone: Eosinophils/100 WBC (Bld) 6 % Normal [facility]; [facility] Work Phone: Erythrocyte distribution width (RBC) [Ratio] 14.5 % Normal 11.6-15.4 [facility]; [facility] Work Phone: Hematocrit (Bld) [Volume fraction] 44.6 % Normal 37.5-51.0 [facility]; [facility] Work Phone: Hemoglobin (Bld) [Mass/Vol] 14.7 g/dL Normal 13.0-17.7 [facility]; [facility] Work Phone: Immature granulocytes (Bld) [#/Vol] 0.0 10*3/uL Normal 0.0-0.1 [facility]; [facility] Work Phone: Immature granulocytes/100 WBC (Bld) 0 % Normal [facility]; [facility] Work Phone: Lymphocytes (Bld) [#/Vol] 1.8 10*3/uL Normal 0.7-3.1 [facility]; [facility] Work Phone: Lymphocytes/100 WBC (Bld) 26 % Normal [facility]; [facility] Work Phone: MCH (RBC) [Entitic mass] 28.4 pg Normal 26.6-33.0 [facility]; [facility] Work Phone: MCHC (RBC) [Mass/Vol] 33.0 g/dL Normal 31.5-35.7 [facility] Work Phone: MCV (RBC) [Entitic vol] 86 fL Normal 79-97 [facility]; [facility] Work Phone: Monocytes (Bld) [#/Vol] 0.7 10*3/uL Normal 0.1-0.9 [facility]; [facility] Work Phone: Monocytes/100 WBC (Bld) 10 % Normal [facility] Work Phone: Neutrophils (Bld) [#/Vol] 4.0 10*3/uL Normal 1.4-7.0 [facility]; [facility] Work Phone: Neutrophils/100 WBC (Bld) 57 % Normal [facility]; [facility] Work Phone: Platelets (Bld) [#/Vol] 168 10*3/uL Normal 150-450 [facility]; [facility] Work Phone: RBC (Bld) [#/Vol] 5.18 10*6/uL Normal 4.14-5.80 [facility]; [facility] Work Phone: WBC (Bld) [#/Vol] 6.9 10*3/uL Normal 3.4-10.8 [facility]; [facility] Work Phone: METABOLIC PANEL, COMPREHENSI VE ([id number])Ordered By: Costing Manager on 11-12-2022 Albumin [Mass/Vol] 4.3 g/dL Normal 3.8-4.8 [facility]; [facility] Work Phone: Albumin/Globulin [Mass ratio] 1.9 {ratio} Normal 1.2-2.2 [facility]; [facility] Work Phone: ALP [Catalytic activity/Vol] 71 U/L Normal 44-121 [facility]; [facility] Work Phone: ALT [Catalytic activity/Vol] 24 U/L Normal 0-44 [facility]; [facility] Work Phone: AST [Catalytic activity/Vol] 21 U/L Normal 0-40 [facility]; [facility] Work Phone: Bilirubin [Mass/Vol] 0.4 mg/dL Normal 0.0-1.2 [facility]; [facility] Work Phone: Calcium [Mass/Vol] 10.3 mg/dL Abnormal 8.6-10.2 [facility]; [facility] Work Phone: Chloride [Moles/Vol] 103 mmol/L Normal 96-106 [facility]; [facility] Work Phone: CO2 [Moles/Vol] 24 mmol/L Normal 20-29 [facility]; [facility] Work Phone: Creatinine [Mass/Vol] 1.23 mg/dL Normal 0.76-1.27 [facility]; [facility] Work Phone: Globulin (S) [Mass/Vol] 2.3 g/dL Normal 1.5-4.5 [facility]; [facility] Work Phone: Glucose [Mass/Vol] 95 mg/dL Normal 70-99 [facility]; [facility] Work Phone: Potassium [Moles/Vol] 4.9 mmol/L Normal 3.5-5.2 [facility]; [facility] Work Phone: Protein [Mass/Vol] 6.6 g/dL Normal 6.0-8.5 [facility]; [facility] Work Phone: Sodium [Moles/Vol] 141 mmol/L Normal 134-144 [facility]; [facility] Work Phone: Urea nitrogen [Mass/Vol] 24 mg/dL Normal 8-27 [facility]; [facility] Work Phone: Urea nitrogen/Creatinine [Mass ratio] 20 mg/mg Normal 10-24 [facility]; [facility] Work Phone: METABOLIC PANEL, COMPREHENSIVE ([id number]) 61 mL/min/1.73 Normal [facility]; [facility] Work Phone: MICROALBUMINOrdered By: Jobster em Pearl Glue Operator on 11-12-2022 Albumin DL <= 20 mg/L (U) [Mass/Vol] 6.9 ug/mL Normal [facility]; [facility] Work Phone: Albumin/Creatinine (U) [Mass ratio] 10 {mg/g_creat} Normal 0-29 [facility]; [facility] Work Phone: Creatinine (U) [Mass/Vol] 67.9 mg/dL Normal [facility]; [facility] Work Phone: TSH ([id number])Ordered By: Odersun m Pearl Glue Operator on 11-12-2022 TSH Qn 3.190 {uIU/mL} Normal 0.450-4.50 0 [facility]; [facility] Work Phone: URINALYSIS, W/ MICRO ([id number]) Ordered By: Costing Manager on 11-12-2022 Appearance (U) Clear Normal [facility]; [facility] Work Phone: Bilirubin Ql (U) Negative Normal [facility]; [facility] Work Phone: Color (U) Yellow Normal [facility]; [facility] Work Phone: Glucose Ql (U) Negative Normal [facility]; [facility] Work Phone: Hemoglobin Ql (U) Negative Normal Compre[facility]; [facility] Work Phone: Ketones Ql (U) Negative Normal [facility]; [facility] Work Phone: Leukocyte esterase Test strip Ql (U) Trace Abnormal [facility]; [facility] Work Phone: Microscopic observation LM Nom (Urine sed) See below: Normal [facility]; [facility] Work Phone: Nitrite Ql (U) Negative Normal Comprehens [facility]; [facility] Work Phone: pH (U) 7.0 [pH] Normal 5.0-7.5 [facility]; [facility] Work Phone: Protein Ql (U) Negative Normal [facility]; [facility] Work Phone: Specific gravity (U) [Rel density] 1.016 1 Normal 1.005-1.03 0 [facility]; [facility] Work Phone: Urobilinogen (U) [Mass/Vol] 0.2 mg/dL Normal 0.2-1.0 [facility]; [facility] Work Phone: PSA (PROSTATE SPECIFIC ANTIG EN) (V76.44)Ordered By: Costing Manager on 04-14-2022 Prostate specific Ag [Mass/Vol] 3.9 ng/mL Normal 0.0-4.0 [facility]; [facility] Work Phone: Absolute lymphocyte counton 03-11-2022 Lymphocytes Auto (Unsp spec) [#/Vol] 0.50 10*3/uL 0.83-4.51 [facility] Work Phone: Basophil percentageon 2022 Basophils/100 WBC (Bld) 0.2 % 0-1 [facility] Work Phone: Chloride [Moles/Vol] 108 mmol/L 98-107 [facility] Work Phone: Eosinophils/100 WBC (Bld) 0.0 % 0-5 [facility] Work Phone: Glucose [Mass/Vol] 191 mg/dL 74-106 [facility] Work Phone: Comment on above: Fasting Glucose resu lt greater than or equal to 126 mg/dL suggests DIABETES MELLITUS per A.D.A. criteria. Neutrophils (Bld) [#/Vol] 8.8 10*3/uL 2.0-7.7 [facility] Work Phone: Neutrophils/100 WBC (Bld) 93.4 % 47-70 [facility] [facility] Work Phone: Potassium [Moles/Vol] 4.3 mmol/L 3.5-5.1 [facility] Work Phone: Comment on above: Slight Hemolysis, Re sult may be falsely increased. Sodium [Moles/Vol] 140 mmol/L 136-145 [facility] Work Phone: WBC (Bld) [#/Vol] 9.4 10*3/uL 4.4-11.0 [facility] Work Phone: Blood erythrocytes count (nu mber/volume)on 03-11-2022 RBC (Bld) [#/Vol] 4.94 10*6/uL 4.6-6.2 [facility] Work Phone: Blood hemoglobin measurement (mass/volume)on 03-11-2022 Hemoglobin (Bld) [Mass/Vol] 14.0 g/dL 13.0-16.5 [facility] Work Phone: Blood lymphocytes/100 leukoc yteson 03-11-2022 Lymphocytes/100 WBC (Bld) 5.3 % 19-41 [facility] Work Phone: Blood manual differential co mment interpretation (narrative result)on 03-11-2022 Manual differential comment Valdemar (Bld) [Interp] SCANNED [facility] Work Phone: Comment on above: LYMPHOPENIA NOTED Blood monocytes/100 leukocyt eson 03-11-2022 Monocytes/100 WBC (Bld) 0.7 % 0-10 [facility] Work Phone: Blood platelet mean volumeon 03-11-2022 Platelet mean volume (Bld) [Entitic vol] 10.7 fL 6.2-12.0 [facility] Work Phone: Determination of erythrocyte mean corpuscular volume (MCV)on 03-11-2022 MCV (RBC) [Entitic vol] 88.5 fL 80-94 [facility] Work Phone: Hematocrit Auto (Bld) [Volum e fraction]on 03-11-2022 Hematocrit (Bld) [Volume fraction] 43.7 % 40-54 [facility] Work Phone: Laboratory - Chemistry and C hemistry - challengeon 03-11-2022 CO2 [Moles/Vol] 24.0 mmol/L 21.0-32.0 [facility] Work Phone: Urea nitrogen/Creatinine [Mass ratio] 15.2 mg/mg 10-20 [facility] Work Phone: Laboratory - Hematology and Cell countson 03-11-2022 Erythrocyte distribution width (RBC) [Entitic vol] 45.9 fL 35.1-43.9 [facility] Work Phone: Erythrocyte distribution width (RBC) [Ratio] 14.4 % 11.6-14.6 [facility] Work Phone: Immature granulocytes/100 WBC (Bld) 0.400 % 0.0-0.9 [facility] Work Phone: Comment on above: IG% - Immature Granu locytes (promyelocytes, myelocytes and metamyelocytes) > 1% indicates that a LEFT SHIFT is Present. MCH (RBC) [Entitic mass] 28.3 pg 27.0-32.0 [facility] Work Phone: Nucleated RBC/100 WBC (Bld) [Ratio] 0 % 0-5 [facility] Work Phone: MCHC Auto (RBC) [Mass/Vol]on 03-11-2022 MCHC (RBC) [Mass/Vol] 32.0 g/dL 32-36 [facility] Work Phone: No Panel Informationon 03-11 Estimated Creatinine Clearance Calc 51.55 ml/min [facility] Work Phone: Estimated GFR (MDRD) Amer 65 mL/min >60 [facility] Work Phone: Comment on above: GFR Calc Estimated GFR (MDRD) Non-Af Amer 53 mL/min >60 [facility] Work Phone: Comment on above: Non- GFR Calc Platelets bldon 03-11-2022 Platelets (Bld) [#/Vol] 155 10*3/uL 150-450 [facility] Work Phone: Serum or plasma calcium kiley urement (mass/volume)on 03-11-2022 Calcium [Mass/Vol] 9.6 mg/dL 8.5-10.1 [facility] Work Phone: Serum or plasma creatinine m easurement (mass/volume)on 03-11-2022 Creatinine [Mass/Vol] 1.38 mg/dL 0.70-1.30 [facility] Work Phone: Comment on above: The validity of the calculated GFR & GFRAA in patients over 70 years has not been determined. Clinical correlation is essential. Serum or plasma urea nitroge n measurement (mass/volume)on 03-11-2022 Urea nitrogen [Mass/Vol] 21 mg/dL 7-18 [facility] Work Phone: Thin prep Papanicolaou smear with manual screeningon 03-11-2022 Thin prep Papanicolaou smear with manual screening 8 5-15 [facility] Work Phone: Absolute lymphocyte counton 03-10-2022 Lymphocytes Auto (Unsp spec) [#/Vol] 0.84 10*3/uL 0.83-4.51 [facility] Work Phone: Basophil percentageon 2022 Basophils/100 WBC (Bld) 0.5 % 0-1 [facility] Work Phone: Bilirubin [Mass/Vol] 0.40 mg/dL 0.20-1.00 [facility] Work Phone: Comment on above: For patients on eltr ombopag therapy, use of Dimension [place] TBIL is not recommended. Chloride [Moles/Vol] 110 mmol/L 98-107 [facility] Work Phone: Eosinophils/100 WBC (Bld) 1.2 % 0-5 [facility] Work Phone: Glucose [Mass/Vol] 109 mg/dL 74-106 [facility] Work Phone: Comment on above: Fasting Glucose resu lt from 100 to 125 mg/dL suggests IMPAIRED HOMEOSTASIS per A.D.A. criteria. Neutrophils (Bld) [#/Vol] 9.8 10*3/uL 2.0-7.7 [facility] Work Phone: Neutrophils/100 WBC (Bld) 81.4 % 47-70 [facility] Work Phone: Potassium [Moles/Vol] 4.2 mmol/L 3.5-5.1 [facility] Work Phone: Protein [Mass/Vol] 7.4 g/dL 6.4-8.2 [facility] Work Phone: Sodium [Moles/Vol] 141 mmol/L 136-145 [facility] Work Phone: WBC (Bld) [#/Vol] 12.1 10*3/uL 4.4-11.0 [facility] Work Phone: Blood erythrocytes count (nu mber/volume)on 03-10-2022 RBC (Bld) [#/Vol] 5.25 10*6/uL 4.6-6.2 [facility] Work Phone: Blood hemoglobin measurement (mass/volume)on 03-10-2022 Hemoglobin (Bld) [Mass/Vol] 15.0 g/dL 13.0-16.5 [facility] Work Phone: Blood lymphocytes/100 leukoc yteson 03-10-2022 Lymphocytes/100 WBC (Bld) 7.0 % 19-41 [facility] Work Phone: Blood monocytes/100 leukocyt eson 03-10-2022 Monocytes/100 WBC (Bld) 9.7 % 0-10 [facility] Work Phone: Blood platelet mean volumeon 03-10-2022 Platelet mean volume (Bld) [Entitic vol] 10.2 fL 6.2-12.0 [facility] Work Phone: Determination of erythrocyte mean corpuscular volume (MCV)on 03-10-2022 MCV (RBC) [Entitic vol] 87.8 fL 80-94 [facility] Work Phone: Hematocrit Auto (Bld) [Volum e fraction]on 03-10-2022 Hematocrit (Bld) [Volume fraction] 46.1 % 40-54 [facility] Work Phone: Laboratory - Chemistry and C hemistry - challengeon 03-10-2022 ALP [Catalytic activity/Vol] 70 U/L 45-117 [facility] Work Phone: ALT [Catalytic activity/Vol] 32 U/L 16-61 [facility] Work Phone: CO2 [Moles/Vol] 24.0 mmol/L 21.0-32.0 [facility] Work Phone: Globulin (S) [Mass/Vol] 3.6 g/dL 2.2-4.2 [facility] Work Phone: Urea nitrogen/Creatinine [Mass ratio] 16.9 mg/mg 10-20 [facility] Work Phone: Laboratory - Hematology and Cell countson 03-10-2022 Erythrocyte distribution width (RBC) [Entitic vol] 46.1 fL 35.1-43.9 [facility] Work Phone: Erythrocyte distribution width (RBC) [Ratio] 14.3 % 11.6-14.6 [facility] Work Phone: Immature granulocytes/100 WBC (Bld) 0.200 % 0.0-0.9 [facility] Work Phone: Comment on above: IG% - Immature Granu locytes (promyelocytes, myelocytes and metamyelocytes) > 1% indicates that a LEFT SHIFT is Present. MCH (RBC) [Entitic mass] 28.6 pg 27.0-32.0 [facility] Work Phone: Nucleated RBC/100 WBC (Bld) [Ratio] 0 % 0-5 [facility] Work Phone: MCHC Auto (RBC) [Mass/Vol]on 03-10-2022 MCHC (RBC) [Mass/Vol] 32.5 g/dL 32-36 [facility] Work Phone: No Panel Informationon 03-10 Estimated Creatinine Clearance Calc 54.37 ml/min [facility] Work Phone: Estimated GFR (MDRD) Amer 69 mL/min >60 [facility] Work Phone: Comment on above: GFR Calc Estimated GFR (MDRD) Non-Af Amer 57 mL/min >60 [facility] Work Phone: Comment on above: Non- GFR Calc Platelets bldon 03-10-2022 Platelets (Bld) [#/Vol] 170 10*3/uL 150-450 [facility] Work Phone: Serum or plasma albumin kiley urement (mass/volume)on 03-10-2022 Albumin [Mass/Vol] 3.8 g/dL 3.2-5.0 [facility] Work Phone: Serum or plasma albumin/glob ulin mass ratioon 03-10-2022 Albumin/Globulin [Mass ratio] 1.1 {ratio} 0.9-2.4 [facility] Work Phone: Serum or plasma calcium kiley urement (mass/volume)on 03-10-2022 Calcium [Mass/Vol] 9.6 mg/dL 8.5-10.1 [facility] Work Phone: Serum or plasma creatinine m easurement (mass/volume)on 03-10-2022 Creatinine [Mass/Vol] 1.30 mg/dL 0.70-1.30 [facility] Work Phone: Comment on above: The validity of the calculated GFR & GFRAA in patients over 70 years has not been determined. Clinical correlation is essential. Serum or plasma urea nitroge n measurement (mass/volume)on 03-10-2022 Urea nitrogen [Mass/Vol] 22 mg/dL 7-18 [facility] Work Phone: Thin prep Papanicolaou smear with manual screeningon 03-10-2022 Thin prep Papanicolaou smear with manual screening 17 U/L 15-37 [facility] Work Phone: Thin prep Papanicolaou smear with manual screening 7 5-15 [facility] Work Phone: CALCIFEDIOL ([id number])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-18-2021 25-hydroxyvitamin D [Mass/Vol] 43.5 ng/mL Normal 30.0-100.0 [facility]; [facility] Work Phone: CBC W/AUTO DIFF WBC ([id number])O rdered By: Costing Manager on 08-18-2021 Basophils (Bld) [#/Vol] 0.1 10*3/uL Normal 0.0-0.2 [facility]; [facility] Work Phone: Basophils/100 WBC (Bld) 1 % Normal [facility]; [facility] Work Phone: Eosinophils (Bld) [#/Vol] 0.4 10*3/uL Normal 0.0-0.4 [facility]; [facility] Work Phone: Eosinophils/100 WBC (Bld) 6 % Normal [facility]; [facility] Work Phone: Erythrocyte distribution width (RBC) [Ratio] 14.5 % Normal 11.6-15.4 [facility]; [facility] Work Phone: Hematocrit (Bld) [Volume fraction] 42.3 % Normal 37.5-51.0 [facility]; [facility] Work Phone: Hemoglobin (Bld) [Mass/Vol] 14.1 g/dL Normal 13.0-17.7 [facility]; [facility] Work Phone: Immature granulocytes (Bld) [#/Vol] 0.0 10*3/uL Normal 0.0-0.1 [facility]; [facility] Work Phone: Immature granulocytes/100 WBC (Bld) 0 % Normal [facility]; [facility] Work Phone: Lymphocytes (Bld) [#/Vol] 1.6 10*3/uL Normal 0.7-3.1 [facility]; [facility] Work Phone: Lymphocytes/100 WBC (Bld) 27 % Normal [facility]; [facility] Work Phone: MCH (RBC) [Entitic mass] 28.5 pg Normal 26.6-33.0 [facility]; [facility] Work Phone: MCHC (RBC) [Mass/Vol] 33.3 g/dL Normal 31.5-35.7 [facility] prehensive [facility]; [facility] Work Phone: MCV (RBC) [Entitic vol] 86 fL Normal 79-97 [facility]; [facility] Work Phone: Monocytes (Bld) [#/Vol] 0.6 10*3/uL Normal 0.1-0.9 [facility]; [facility] Work Phone: Monocytes/100 WBC (Bld) 11 % Normal [facility]; [facility] Work Phone: Neutrophils (Bld) [#/Vol] 3.4 10*3/uL Normal 1.4-7.0 [facility]; [facility] Work Phone: Neutrophils/100 WBC (Bld) 55 % Normal [facility]; [facility] Work Phone: Platelets (Bld) [#/Vol] 170 10*3/uL Normal 150-450 [facility]; [facility] Work Phone: RBC (Bld) [#/Vol] 4.95 10*6/uL Normal 4.14-5.80 [facility] ehensive [facility]; [facility] Work Phone: WBC (Bld) [#/Vol] 6.0 10*3/uL Normal 3.4-10.8 [facility]; [facility] Work Phone: LIPID PANEL ([id number])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-18-2021 Cholesterol [Mass/Vol] 166 mg/dL Normal 100-199 [facility]; [facility] Work Phone: Cholesterol in HDL [Mass/Vol] 56 mg/dL Normal [facility]; [facility] Work Phone: Triglyceride [Mass/Vol] 82 mg/dL Normal 0-149 [facility]; [facility] Work Phone: LIPID PANEL ([id number]) 15 mg/dL Normal 5-40 [facility]; [facility] Work Phone: LIPID PANEL ([id number]) 95 mg/dL Normal 0-99 [facility]; [facility] Work Phone: LIPID PANEL ([id number]) 1.7 {ratio} Normal 0.0-3.6 [facility] Work Phone: METABOLIC PANEL, COMPREHENSI VE ([id number])Ordered By: Costing Manager on 08-18-2021 Albumin [Mass/Vol] 4.1 g/dL Normal 3.7-4.7 [facility]; [facility] Work Phone: Albumin/Globulin [Mass ratio] 2.0 {ratio} Normal 1.2-2.2 [facility]; [facility] Work Phone: ALP [Catalytic activity/Vol] 68 U/L Normal 44-121 [facility]; [facility] Work Phone: ALT [Catalytic activity/Vol] 18 U/L Normal 0-44 [facility]; [facility] Work Phone: AST [Catalytic activity/Vol] 16 U/L Normal 0-40 [facility]; [facility] Work Phone: Bilirubin [Mass/Vol] 0.3 mg/dL Normal 0.0-1.2 [facility] Work Phone: Calcium [Mass/Vol] 10.0 mg/dL Normal 8.6-10.2 [facility]; [facility] Work Phone: Chloride [Moles/Vol] 105 mmol/L Normal 96-106 [facility]; [facility] Work Phone: CO2 [Moles/Vol] 24 mmol/L Normal 20-29 [facility]; [facility] Work Phone: Creatinine [Mass/Vol] 1.25 mg/dL Normal 0.76-1.27 [facility] pre[facility]; [facility] Work Phone: Globulin (S) [Mass/Vol] 2.1 g/dL Normal 1.5-4.5 [facility]; [facility] Work Phone: Glucose [Mass/Vol] 93 mg/dL Normal 65-99 [facility]; [facility] Work Phone: Potassium [Moles/Vol] 4.7 mmol/L Normal 3.5-5.2 [facility]; [facility] Work Phone: Protein [Mass/Vol] 6.2 g/dL Normal 6.0-8.5 [facility]; [facility] Work Phone: Sodium [Moles/Vol] 141 mmol/L Normal 134-144 [facility]; [facility] Work Phone: Urea nitrogen [Mass/Vol] 20 mg/dL Normal 8-27 [facility]; [facility] Work Phone: Urea nitrogen/Creatinine [Mass ratio] 16 mg/mg Normal 10-24 [facility]; [facility] Work Phone: METABOLIC PANEL, COMPREHENSIVE ([id number]) 60 mL/min/1.73 Normal [facility]; [facility] Work Phone: MICROALBUMINOrdered By: Syst em Pearl Glue Operator on 08-18-2021 Albumin DL <= 20 mg/L (U) [Mass/Vol] 9.7 ug/mL Normal [facility]; [facility] Work Phone: Albumin/Creatinine (U) [Mass ratio] 9 {mg/g_creat} Normal 0-29 [facility]; [facility] Work Phone: Creatinine (U) [Mass/Vol] 102.9 mg/dL Normal [facility]; [facility] Work Phone: TSH ([id number])Ordered By: Jobstere m Pearl Glue Operator on 08-18-2021 TSH Qn 3.360 {uIU/mL} Normal 0.450-4.50 0 [facility]; [facility] Work Phone: URINALYSIS, W/ MICRO ([id number]) Ordered By: Costing Manager on 08-18-2021 Appearance (U) Clear Normal [facility]; [facility] Work Phone: Bilirubin Ql (U) Negative Normal Compre[facility] nsive [facility]; [facility] Work Phone: Color (U) Yellow Normal [facility]; [facility] Work Phone: Glucose Ql (U) Negative Normal Comprehens lc [facility]; [facility] Work Phone: Hemoglobin Ql (U) Negative Normal Compre[facility] ens[facility]; [facility] Work Phone: Ketones Ql (U) Negative Normal [facility]; [facility] Work Phone: Leukocyte esterase Test strip Ql (U) Negative Normal [facility]; [facility] Work Phone: Microscopic observation LM Nom (Urine sed) MICRON Normal [facility]; [facility] Work Phone: Microscopic observation LM Nom (Urine sed) See below: Normal [facility]; [facility] Work Phone: Nitrite Ql (U) Negative Normal [facility]; [facility] Work Phone: pH (U) 6.5 [pH] Normal 5.0-7.5 [facility]; [facility] Work Phone: Protein Ql (U) Negative Normal [facility]; [facility] Work Phone: Specific gravity (U) [Rel density] 1.017 1 Normal 1.005-1.03 0 [facility]; [facility] Work Phone: Urobilinogen (U) [Mass/Vol] 0.2 mg/dL Normal 0.2-1.0 [facility]; [facility] Work Phone: CBC & PLATELETS (AUTO) ([id number] [id number])Ordered By: Costing Manager on 02-06-2021 Erythrocyte distribution width (RBC) [Ratio] 13.9 % Normal 11.6-15.4 [facility]; [facility] Work Phone: Hematocrit (Bld) [Volume fraction] 43.3 % Normal 37.5-51.0 [facility]; [facility] Work Phone: Hemoglobin (Bld) [Mass/Vol] 14.6 g/dL Normal 13.0-17.7 [facility]; [facility] Work Phone: MCH (RBC) [Entitic mass] 29.4 pg Normal 26.6-33.0 [facility]; [facility] Work Phone: MCHC (RBC) [Mass/Vol] 33.7 g/dL Normal 31.5-35.7 [facility]; [facility] Work Phone: MCV (RBC) [Entitic vol] 87 fL Normal 79-97 [facility]; [facility] Work Phone: Platelets (Bld) [#/Vol] 167 10*3/uL Normal 150-450 [facility]; [facility] Work Phone: RBC (Bld) [#/Vol] 4.96 10*6/uL Normal 4.14-5.80 [facility] ehensive [facility]; [facility] Work Phone: WBC (Bld) [#/Vol] 5.9 10*3/uL Normal 3.4-10.8 [facility]; [facility] Work Phone: RENAL FUNCTION PANEL ([id number]) Ordered By: Costing Manager on 02-06-2021 Albumin [Mass/Vol] 4.5 g/dL Normal 3.7-4.7 [facility]; [facility] Work Phone: Calcium [Mass/Vol] 9.9 mg/dL Normal 8.6-10.2 [facility]; [facility] Work Phone: Chloride [Moles/Vol] 106 mmol/L Normal 96-106 [facility]; [facility] Work Phone: CO2 [Moles/Vol] 23 mmol/L Normal 20-29 [facility]; [facility] Work Phone: Creatinine [Mass/Vol] 1.27 mg/dL Normal 0.76-1.27 [facility]; [facility] Work Phone: GFR/1.73 sq M.predicted among blacks CKD-EPI (S/P/Bld) [Vol rate/Area] 64 mL/min/1.73 Normal [facility]; [facility] Work Phone: GFR/1.73 sq M.predicted among non-blacks CKD-EPI (S/P/Bld) [Vol rate/Area] 56 mL/min/1.73 Abnormal [facility]; [facility] Work Phone: Glucose [Mass/Vol] 103 mg/dL Abnormal 65-99 [facility]; [facility] Work Phone: Phosphate [Mass/Vol] 2.7 mg/dL Abnormal 2.8-4.1 [facility]; [facility] Work Phone: Potassium [Moles/Vol] 4.7 mmol/L Normal 3.5-5.2 [facility]; [facility] Work Phone: Sodium [Moles/Vol] 142 mmol/L Normal 134-144 [facility]; [facility] Work Phone: Urea nitrogen [Mass/Vol] 21 mg/dL Normal 8-27 [facility]; [facility] Work Phone: Urea nitrogen/Creatinine [Mass ratio] 17 mg/mg Normal 10-24 [facility]; [facility] Work Phone: HEPATITIS C ANTIBODY ([id number]) Ordered By: Costing Manager on 10-16-2020 HCV Ab Signal/Cutoff IA [Rel units/Vol] {ratio} Normal 0.0-0.9 [facility]; [facility] Work Phone: PSA (Medicare - [id number]) ([phone])Ordered By: Costing Manager on 10-16-2020 Prostate specific Ag [Mass/Vol] 2.5 ng/mL Normal 0.0-4.0 [facility]; [facility] Work Phone: CALCIFEDIOL ([id number])Ordered B y: Costing Manager on 10-10-2020 25-hydroxyvitamin D [Mass/Vol] 49.2 ng/mL Normal 30.0-100.0 [facility]; [facility] Work Phone: CBC & PLATELETS (AUTO) ([phone])Ordered By: Costing Manager on 10-10-2020 Erythrocyte distribution width (RBC) [Ratio] 14.9 % Normal 11.6-15.4 [facility]; [facility] Work Phone: Hematocrit (Bld) [Volume fraction] 43.4 % Normal 37.5-51.0 [facility]; [facility] Work Phone: Hemoglobin (Bld) [Mass/Vol] 14.3 g/dL Normal 13.0-17.7 [facility]; [facility] Work Phone: MCH (RBC) [Entitic mass] 27.5 pg Normal 26.6-33.0 [facility]; [facility] Work Phone: MCHC (RBC) [Mass/Vol] 32.9 g/dL Normal 31.5-35.7 [facility] pre[facility]ive [facility]; [facility] Work Phone: MCV (RBC) [Entitic vol] 84 fL Normal 79-97 [facility]; [facility] Work Phone: Platelets (Bld) [#/Vol] 160 10*3/uL Normal 150-450 [facility]; [facility] Work Phone: RBC (Bld) [#/Vol] 5.20 10*6/uL Normal 4.14-5.80 [facility]; [facility] Work Phone: WBC (Bld) [#/Vol] 5.4 10*3/uL Normal 3.4-10.8 [facility]; [facility] Work Phone: METABOLIC PANEL, COMPREHENSI VE ([id number])Ordered By: Costing Manager on 10-10-2020 Albumin [Mass/Vol] 4.7 g/dL Normal 3.7-4.7 [facility]; [facility] Work Phone: Albumin/Globulin [Mass ratio] 2.2 {ratio} Normal 1.2-2.2 [facility]; [facility] Work Phone: ALP [Catalytic activity/Vol] 68 U/L Normal 48-121 [facility]; [facility] Work Phone: ALT [Catalytic activity/Vol] 19 U/L Normal 0-44 [facility]; [facility] Work Phone: AST [Catalytic activity/Vol] 19 U/L Normal 0-40 [facility]; [facility] Work Phone: Bilirubin [Mass/Vol] 0.5 mg/dL Normal 0.0-1.2 [facility]; [facility] Work Phone: Calcium [Mass/Vol] 10.2 mg/dL Normal 8.6-10.2 [facility]; [facility] Work Phone: Chloride [Moles/Vol] 107 mmol/L Abnormal 96-106 [facility]; [facility] Work Phone: CO2 [Moles/Vol] 23 mmol/L Normal 20-29 [facility]; [facility] Work Phone: Creatinine [Mass/Vol] 1.15 mg/dL Normal 0.76-1.27 [facility] Internal Medicine; [facility] Internal Medicine Work Phone: GFR/1.73 sq M.predicted among blacks CKD-EPI (S/P/Bld) [Vol rate/Area] 73 mL/min/1.73 Normal [facility]; [facility] Work Phone: GFR/1.73 sq M.predicted among non-blacks CKD-EPI (S/P/Bld) [Vol rate/Area] 63 mL/min/1.73 Normal [facility]; [facility] Work Phone: Globulin (S) [Mass/Vol] 2.1 g/dL Normal 1.5-4.5 C o[facility]rehensive Internal Medicine; [facility] Work Phone: Glucose [Mass/Vol] 92 mg/dL Normal 65-99 [facility]; [facility] Work Phone: Potassium [Moles/Vol] 5.2 mmol/L Normal 3.5-5.2 [facility] prehensive Internal Medicine; [facility] Work Phone: Protein [Mass/Vol] 6.8 g/dL Normal 6.0-8.5 [facility] Internal Medicine; [facility] Work Phone: Sodium [Moles/Vol] 142 mmol/L Normal 134-144 [facility] Internal Medicine; [facility] Work Phone: Urea nitrogen [Mass/Vol] 22 mg/dL Normal 8-27 [facility] Internal Medicine; [facility] Work Phone: Urea nitrogen/Creatinine [Mass ratio] 19 mg/mg Normal 10-24 [facility]; [facility] Work Phone: MICROALB;CREAT RATION, RAND UR ([id number])Ordered By: Costing Manager on 10-10-2020 Albumin DL <= 20 mg/L (U) [Mass/Vol] 7.6 ug/mL Normal [facility]; [facility] Work Phone: Albumin/Creatinine (U) [Mass ratio] 12 {mg/g_creat} Normal 0-29 [facility]; [facility] Work Phone: Creatinine (U) [Mass/Vol] 62.3 mg/dL Normal [facility]; [facility] Work Phone: NMR Profile ([id number])Ordered B y: Costing Manager on 10-10-2020 Lipoprotein.alpha [Moles/Vol] 33.6 umol/L Normal [facility]; [facility] Work Phone: Lipoprotein.beta.subpar ticle [Entitic length] 21.0 nm Normal Comprehen sive Internal Medicine; [facility] Work Phone: Lipoprotein.beta.subpar ticle [Moles/Vol] 1295 nmol/L Abnormal [facility]; [facility] Work Phone: Lipoprotein.beta.subpar ticle.small [Moles/Vol] 316 nmol/L Normal Comprehe nsive Internal Medicine; [facility] Internal Medicine Work Phone: NMR Profile (61093) 117 mg/dL Abnormal 0-99 Compr ehensive Internal Medicine; [facility] Internal Medicine Work Phone: NMR Profile (58302) 65 mg/dL Normal [facility] ehensive Internal Medicine; [facility] Internal Medicine Work Phone: NMR Profile (98071) 55 mg/dL Normal 0-149 [facility]; [facility] Internal Medicine Work Phone: NMR Profile (28533) 192 mg/dL Normal 100-199 [facility]; [facility] Internal Medicine Work Phone: T3, TOTAL (TRIDOTHYRONINE) ( 00075)Ordered By: Costing Manager on 10-10-2020 T3 [Mass/Vol] 118 ng/dL Normal 71-180 Comprehensi ve Internal Medicine; [facility] Internal Medicine Work Phone: T4, TOTAL ([phone])Ordered By: Costing Manager on 10-10-2020 T4 [Mass/Vol] 7.7 ug/dL Normal 4.5-12.0 Comprehensi ve Internal Medicine; [facility] Internal Medicine Work Phone: TSH (THYROID STIMULATING HOR MAYITO) (02021)Ordered By: Costing Manager on 10-10-2020 TSH Qn 2.130 {uIU/mL} Normal 0.450-4.50 0 [facility]; [facility] Work Phone: URINALYSIS W MICROSCOPY ([phone])Ordered By: Costing Manager on 10-10-2020 Appearance (U) Clear Normal Comprehens cl Internal Medicine; [facility] Work Phone: Bilirubin Ql (U) Negative Normal Comprehe nsive Internal Medicine; [facility] Work Phone: Color (U) Yellow Normal [facility]; [facility] Work Phone: Glucose Ql (U) Negative Normal Comprehens cl Internal Medicine; [facility] Work Phone: Hemoglobin Ql (U) Negative Normal Compreh ensive Internal Medicine; [facility] Work Phone: Ketones Ql (U) Negative Normal Comprehens cl Internal Medicine; [facility] Work Phone: Leukocyte esterase Test strip Ql (U) Negative Normal [facility]; [facility] Work Phone: Microscopic observation LM Nom (Urine sed) MICNIP Normal [facility]; [facility] Work Phone: Nitrite Ql (U) Negative Normal Comprehens cl Internal Medicine; [facility] Work Phone: pH (U) 7.0 [pH] Normal 5.0-7.5 [facility]; [facility] Work Phone: Protein Ql (U) Negative Normal Comprehens cl Internal Medicine; [facility] Work Phone: Specific gravity (U) [Rel density] 1.014 1 Normal 1.005-1.03 0 [facility]; [facility] Work Phone: Urobilinogen (U) [Mass/Vol] 0.2 mg/dL Normal 0.2-1.0 [facility]; [facility] Work Phone: CALCIFEDIOL ([id number])Ordered B y: Costing Manager on 02-14-2020 25-Hydroxyvitamin D2+25-Hydroxyvitamin D3 [Mass/Vol] 47.8 ng/mL Normal 30.0-100.0 [facility]; [facility] Work Phone: Comment on above: Vitamin D deficiency has been defined by the [place] ofMedicine and an Endocrine Society practice guideline as alevel of serum 25-OH vitamin D less than 20 ng/mL (1,2).The Endocrine Society went on to further define vitamin Dinsufficiency as a level between 21 and 29 ng/mL (2).1. IOM ([place] of Medicine). 2010. Dietary reference intakes for calcium and D. [place]: The National Academies Press.2. Claudio MF, Kamilla ZIEGLER, Leonid RANDOLPH, et al. Evaluation, treatment, and prevention of vitamin D deficiency: an Endocrine Society clinical practice guideline. JCEM. 2010; 96(7):1911-30. Test(s) 325020-KVI-M ; 054485-ADO-E; 845892-Bkcwxoacceisp; 082639-Cmyertfskve, Total; 460475-JKA-X (Total); 621005-Hexhd LDL-P; 951837-WZL Size; 009634-UZ-VF Scorewas developed and its performance characteristics determinedby Spindle. It has not been cleared or approved by the Foodand Drug Administration.PATIENT WAS FASTINGPERFORMED BY: [employer] [place] [address] [id number] BY: [employer] [facility] [id number] CBC, PLATELETS & MANUAL DIFF (28629)Ordered By: Costing Manager on 02-14-2020 Basophils (Bld) [#/Vol] 0.1 {x10E3/uL} Normal 0.0-0.2 [facility]; [facility] Work Phone: Comment on above: Test(s) 118486-SMN-Q ; 425006-CHJ-O; 260234-Ukgkbhzwgutmx; 180194-Cvxukrtqhwd, Total; 977817-LDF-G (Total); 520494-Qomas LDL-P; 535803-OLT Size; 297949-LP-LF Scorewas developed and its performance characteristics determinedby Spindle. It has not been cleared or approved by the Foodand Drug Administration.PATIENT WAS FASTINGPERFORMED BY: eFans[address] [id number] BY: [place] [id number] Basophils (Bld) [#/Vol] 0.1 10*3/uL Normal 0.0-0.2 [facility]; [facility] Work Phone: Comment on above: Test(s) 193909-CNJ-U ; 118590-MAS-B; 034276-Xrqacvxrwqcgt; 408656-Ihvtwcqrvtg, Total; 901201-VYZ-B (Total); 896961-Rpmmr LDL-P; 649627-ZMU Size; 681050-OA-VX Scorewas developed and its performance characteristics determinedby Spindle. It has not been cleared or approved by the Foodand Drug Administration.PATIENT WAS FASTINGPERFORMED BY: Vupen [address] [id number] BY: Tackle Grab6370 [facility] [id number] Basophils/100 WBC (Bld) 1 % Normal C [facility] Internal Medicine; [facility] Work Phone: Comment on above: Test(s) 488277-MRD-W ; 158840-BIM-K; 706210-Idoyffujbphby; 477017-Jkdquvocupj, Total; 725369-PGG-D (Total); 306046-Uhnfw LDL-P; 000603-REO Size; 661888-GG-SR Scorewas developed and its performance characteristics determinedby Spindle. It has not been cleared or approved by the Foodand Drug Administration.PATIENT WAS FASTINGPERFORMED BY: Vupen [address] [id number] BY: Spindle Pmmlii8605 [facility] [id number] Eosinophils (Bld) [#/Vol] 0.3 {x10E3/uL} Normal 0.0-0.4 [facility]; [facility] Work Phone: Comment on above: Test(s) 506785-XNO-P ; 081689-YCE-A; 217942-Qagbxiomvjxcx; 088835-Pyvsujyrbdo, Total; 824078-PVZ-O (Total); 398817-Exmat LDL-P; 109860-EIH Size; 675148-WX-XV Scorewas developed and its performance characteristics determinedby Spindle. It has not been cleared or approved by the Foodand Drug Administration.PATIENT WAS FASTINGPERFORMED BY: Vupen [address] [id number] BY: Tackle Grab6370 [facility] [id number] Eosinophils (Bld) [#/Vol] 0.3 10*3/uL Normal 0.0-0.4 [facility]; [facility] Work Phone: Comment on above: Test(s) 923269-TMY-I ; 307048-YAL-L; 927742-Lbtgtbfttzheb; 753658-Ctsrefaffum, Total; 284205-MLR-Y (Total); 502372-Ubcjb LDL-P; 995694-UEC Size; 218855-DH-PP Scorewas developed and its performance characteristics determinedby Spindle. It has not been cleared or approved by the Foodand Drug Administration.PATIENT WAS FASTINGPERFORMED BY: Vupen [address] [id number] BY: Zank70 wmblyAt[facility] [id number] Eosinophils/100 WBC (Bld) 5 % Normal [facility]; [facility] Work Phone: Comment on above: Test(s) 450123-COP-V ; 570030-FFL-Q; 366353-Rnfbrilhhharl; 539111-Nzhakdodftc, Total; 801147-MIW-I (Total); 333142-Jccaw LDL-P; 862092-ABT Size; 504227-AV-GS Scorewas developed and its performance characteristics determinedby Spindle. It has not been cleared or approved by the Foodand Drug Administration.PATIENT WAS FASTINGPERFORMED BY: Vupen [address] [id number] BY: Tackle Grab6370 [facility] [id number] Erythrocyte distribution width (RBC) [Ratio] 13.5 % Normal 11.6-15.4 [facility]; [facility] Work Phone: Comment on above: Test(s) 359598-LDG-P ; 549154-RMP-C; 179129-Uvziymcqjviur; 777689-Tanmpxxuxbv, Total; 156975-DAT-L (Total); 621435-Gvctf LDL-P; 689867-LQN Size; 980672-TX-PO Scorewas developed and its performance characteristics determinedby Spindle. It has not been cleared or approved by the Foodand Drug Administration.PATIENT WAS FASTINGPERFORMED BY: Vupen [address] [id number] BY: Zank70 [facility] [id number] Hematocrit (Bld) [Volume fraction] 45.6 % Normal 37.5-51.0 [facility]; [facility] Internal Medicine Work Phone: Comment on above: Test(s) 215504-SOK-G ; 871819-RVE-C; 200397-Ojjluqbrpfcsv; 017782-Ykoyqshehed, Total; 237647-RTB-C (Total); 496603-Xvvho LDL-P; 143203-THW Size; 127605-AJ-BZ Scorewas developed and its performance characteristics determinedby Spindle. It has not been cleared or approved by the Food[employer]ureLauncher Drug Administration.PATIENT WAS FASTINGPERFORMED BY: Vupen [address] [id number] BY: Tackle Grab6370 [facility] [id number] Hemoglobin (Bld) [Mass/Vol] 14.9 g/dL Normal 13.0-17.7 [facility]; [facility] Work Phone: Comment on above: Test(s) 752062-EMZ-V ; 320959-ZCN-T; 780325-Brtumenabembj; 846794-Pjxyrdeuswg, Total; 477962-RRE-K (Total); 853159-Qpkew LDL-P; 680971-OHJ Size; 166571-HT-CS Scorewas developed and its performance characteristics determinedby Spindle. It has not been cleared or approved by the Foodand Drug Administration.PATIENT WAS FASTINGPERFORMED BY: [employer]ify[address] [id number] BY: AccertifyInspira Medical Center WoodburyVqoohy2073 [facility] [id number] Immature granulocytes (Bld) [#/Vol] 0.0 {x10E3/uL} Normal 0.0-0.1 [facility]; [facility] Work Phone: Comment on above: Test(s) 017415-VPQ-K ; 681377-MAO-J; 347600-Bvafmuuhijfgp; 814752-Egjxqmuhpvq, Total; 835342-JZT-E (Total); 008234-Gwpji LDL-P; 550678-DOI Size; 592977-LS-TJ Scorewas developed and its performance characteristics determinedby Spindle. It has not been cleared or approved by the Foodand Drug Administration.PATIENT WAS FASTINGPERFORMED BY: [employer]ify[address] [id number] BY: AccertifyInspira Medical Center WoodburyJmuycy0624 [facility] [id number] Immature granulocytes (Bld) [#/Vol] 0.0 10*3/uL Normal 0.0-0.1 [facility]; [facility] Work Phone: Comment on above: Test(s) 338918-ICV-Z ; 962659-TSC-V; 296333-Kwjejrpvjcmqd; 812270-Hqjrvjwuczr, Total; 370356-WMU-Q (Total); 952909-Vdwfk LDL-P; 708263-PVW Size; 952831-FH-WC Scorewas developed and its performance characteristics determinedby Spindle. It has not been cleared or approved by the Foodand Drug Administration.PATIENT WAS FASTINGPERFORMED BY: [employer]ertify[address] [id number] BY: AccertifyInspira Medical Center WoodburyWdthch4410 [facility] [id number] Immature granulocytes/100 WBC (Bld) 0 % Normal [facility]; [facility] Work Phone: Comment on above: Test(s) 458791-AME-L ; 236082-AZW-K; 298286-Ivtkolmenlxyt; 175591-Yyepyddwtur, Total; 156831-JZS-E (Total); 345242-Xhmje LDL-P; 934788-SGC Size; 340239-UC-VZ Scorewas developed and its performance characteristics determinedby Spindle. It has not been cleared or approved by the Foodand Drug Administration.PATIENT WAS FASTINGPERFORMED BY: Spindle [address] [id number] BY: Spindle Mhonms8156 [facility] [id number] Lymphocytes (Bld) [#/Vol] 1.6 {x10E3/uL} Normal 0.7-3.1 [facility]; [facility] Work Phone: Comment on above: Test(s) 769977-IWM-U ; 715619-FWQ-P; 641203-Qnpabmuccyhiq; 828084-Httfinovump, Total; 145592-DPX-F (Total); 427467-Bmqwn LDL-P; 715445-ATO Size; 812766-WY-RZ Scorewas developed and its performance characteristics determinedby Spindle. It has not been cleared or approved by the Foodand Drug Administration.PATIENT WAS FASTINGPERFORMED BY: Spindle [address] [id number] BY: Spindle Dlqzuh2189 [facility] [id number] Lymphocytes (Bld) [#/Vol] 1.6 10*3/uL Normal 0.7-3.1 [facility]; [facility] Work Phone: Comment on above: Test(s) 777600-WMA-J ; 501661-LGX-K; 533491-Vpfcwjsdglopa; 146901-Dloyhrzcoyi, Total; 949877-NFE-G (Total); 267545-Dapkx LDL-P; 830718-QHL Size; 801578-OP-WU Scorewas developed and its performance characteristics determinedby Spindle. It has not been cleared or approved by the Foodand Drug Administration.PATIENT WAS FASTINGPERFORMED BY: Vupen [address] [id number] BY: Azoi Hzpokb5776 [facility] [id number] Lymphocytes/100 WBC (Bld) 23 % Normal [facility]; [facility] Work Phone: Comment on above: Test(s) 582089-CEL-I ; 381471-ITK-J; 794021-Gmbpjlsxiengq; 915879-Efgerdzlckh, Total; 424845-EKW-B (Total); 700330-Yfbiu LDL-P; 017651-GEL Size; 204949-ZU-BQ Scorewas developed and its performance characteristics determinedby Spindle. It has not been cleared or approved by the Foodand Drug Administration.PATIENT WAS FASTINGPERFORMED BY: eFans[address] [id number] BY: Tackle Grab6370 [facility] [id number] MCH (RBC) [Entitic mass] 28.2 pg Normal 26.6-33.0 [facility]; [facility] Work Phone: Comment on above: Test(s) 292934-CVP-J ; 301839-VLZ-W; 125544-Tywabqwslbgrg; 355859-Pwqzqggeqqr, Total; 930424-QLC-Y (Total); 976888-Dteyp LDL-P; 425473-DXM Size; 639473-FJ-UO Scorewas developed and its performance characteristics determinedby Spindle. It has not been cleared or approved by the Foodand Drug Administration.PATIENT WAS FASTINGPERFORMED BY: Vupen [address] [id number] BY: Azoi Msefca7423 [facility] [id number] MCHC (RBC) [Mass/Vol] 32.7 g/dL Normal 31.5-35.7 [facility] prehensive Internal Medicine; [facility] Work Phone: Comment on above: Test(s) 751331-NJS-C ; 887468-XXG-U; 304281-Vyyjuvokjffxu; 789702-Hpbawzcwhau, Total; 628950-VBR-X (Total); 979492-Qarrh LDL-P; 379560-UNB Size; 832849-HE-UI Scorewas developed and its performance characteristics determinedby Spindle. It has not been cleared or approved by the Foodand Drug Administration.PATIENT WAS FASTINGPERFORMED BY: Vupen [address] [id number] BY: Zank70 [facility] [id number] MCV (RBC) [Entitic vol] 86 fL Normal 79-97 [facility]; [facility] Work Phone: Comment on above: Test(s) 282022-GUG-H ; 350609-CHB-Z; 722993-Oifotbnxucyuz; 197394-Tnhlfaahbbd, Total; 449851-SLY-Y (Total); 346628-Iphvm LDL-P; 900572-MST Size; 285432-DQ-RI Scorewas developed and its performance characteristics determinedby Spindle. It has not been cleared or approved by the Foodand Drug Administration.PATIENT WAS FASTINGPERFORMED BY: Vupen [address] [id number] BY: Tackle Grab6370 [facility] [id number] Monocytes (Bld) [#/Vol] 0.7 {x10E3/uL} Normal 0.1-0.9 [facility]; [facility] Work Phone: Comment on above: Test(s) 027360-GLL-H ; 504319-ALA-V; 373113-Fcypimwedxklh; 738176-Vtsozavltbo, Total; 470419-AME-F (Total); 070210-Npyos LDL-P; 803249-QOK Size; 146400-BH-NJ Scorewas developed and its performance characteristics determinedby Spindle. It has not been cleared or approved by the Foodand Drug Administration.PATIENT WAS FASTINGPERFORMED BY: BN [employer] [id number] BY: AccertifyInspira Medical Center WoodburyVwrbql7196 [facility]Oz[facility] [id number] Monocytes (Bld) [#/Vol] 0.7 10*3/uL Normal 0.1-0.9 [facility]; [facility] Work Phone: Comment on above: Test(s) 159525-CZL-P ; 075010-FBV-C; 444961-Clohvhueuykwk; 969854-Txrnuisoeeh, Total; 352874-MGX-U (Total); 959779-Jcehj LDL-P; 347595-ZBC Size; 023022-CK-HT Scorewas developed and its performance characteristics determinedby Spindle. It has not been cleared or approved by the Foodand Drug Administration.PATIENT WAS FASTINGPERFORMED BY: Vupen [address] [id number] BY: Tackle Grab6370 wmblyAt[facility] [id number] Monocytes/100 WBC (Bld) 10 % Normal C [facility] Internal Medicine; [facility] Work Phone: Comment on above: Test(s) 300539-BFZ-U ; 187044-PYM-M; 624324-Xwrznirfynenu; 169123-Fyijnbgbmjd, Total; 544131-VDT-A (Total); 249531-Toonm LDL-P; 527082-BTH Size; 232365-EY-FG Scorewas developed and its performance characteristics determinedby Spindle. It has not been cleared or approved by the Foodand Drug Administration.PATIENT WAS FASTINGPERFORMED BY: [employer] [id number] BY: [employer] Ocean SoftwareInspira Medical Center WoodburyDaares2655 [facility] [id number] Neutrophils (Bld) [#/Vol] 4.2 {x10E3/uL} Normal 1.4-7.0 [facility]; [facility] Work Phone: Comment on above: Test(s) 052131-UUO-D ; 346423-RVQ-T; 876202-Qoanagwsxoibt; 628329-Cnkojvbsofn, Total; 198833-EKZ-N (Total); 538328-Ipovl LDL-P; 558933-PWD Size; 411857-HB-VF Scorewas developed and its performance characteristics determinedby Spindle. It has not been cleared or approved by the Foodand Drug Administration.PATIENT WAS FASTINGPERFORMED BY: eFans[address] [id number] BY: Zank70 [facility] [id number] Neutrophils (Bld) [#/Vol] 4.2 10*3/uL Normal 1.4-7.0 [facility]; [facility] Work Phone: Comment on above: Test(s) 355949-UXO-M ; 780620-QNJ-R; 679018-Zypeghsfkidfi; 052748-Cxczqgxirfa, Total; 914241-QYN-Q (Total); 646376-Fpveb LDL-P; 675949-AZR Size; 631839-SG-GP Scorewas developed and its performance characteristics determinedby Spindle. It has not been cleared or approved by the Foodand Drug Administration.PATIENT WAS FASTINGPERFORMED BY: Vupen [address] [id number] BY: Zank70 [facility] [id number] Neutrophils/100 WBC (Bld) 61 % Normal [facility]; [facility] Work Phone: Comment on above: Test(s) 244500-WQA-I ; 777646-MAP-P; 540843-Jgmwxdqusdjrh; 493611-Xoldrlwgksz, Total; 796161-CQO-P (Total); 055651-Gsiup LDL-P; 546607-FWE Size; 443160-MS-BN Scorewas developed and its performance characteristics determinedby Spindle. It has not been cleared or approved by the Foodand Drug Administration.PATIENT WAS FASTINGPERFORMED BY: Vupen [address] [id number] BY: Zank70 wmblyAt[facility] Health [facility] [id number] Platelets (Bld) [#/Vol] 191 {x10E3/uL} Normal 150-450 [facility]; [facility] Work Phone: Comment on above: Test(s) 587686-NBY-M ; 181699-HIG-F; 355983-Qvkzbrwbhnhbh; 437359-Rucsyysxhsa, Total; 789541-QLU-N (Total); 536129-Wbxhq LDL-P; 265230-RUI Size; 191419-YV-FG Scorewas developed and its performance characteristics determinedby Spindle. It has not been cleared or approved by the Foodand Drug Administration.PATIENT WAS FASTINGPERFORMED BY: eFans[address] [id number] BY: Tackle Grab6370 wmblyAt[facility] [id number] Platelets (Bld) [#/Vol] 191 10*3/uL Normal 150-450 [facility]; [facility] Work Phone: Comment on above: Test(s) 317236-XPD-M ; 677714-NCF-Z; 410292-Dqavbgptmssnq; 231983-Revtoyjawrl, Total; 327117-NDJ-F (Total); 308084-Xopqk LDL-P; 218940-WPQ Size; 783330-JP-NS Scorewas developed and its performance characteristics determinedby Spindle. It has not been cleared or approved by the Foodand Drug Administration.PATIENT WAS FASTINGPERFORMED BY: eFans[address] [id number] BY: Tackle Grab6370 [facility] [id number] RBC (Bld) [#/Vol] 5.29 {x10E6/uL} Normal 4.14-5.80 [facility] Internal Medicine; [facility] Work Phone: Comment on above: Test(s) 002067-BIA-P ; 226022-QYJ-Z; 151666-Wtcslxojlkwov; 522434-Mogauxiwfng, Total; 836883-XMD-K (Total); 953609-Ttgwo LDL-P; 984206-XNN Size; 011243-GC-ZZ Scorewas developed and its performance characteristics determinedby Spindle. It has not been cleared or approved by the Foodand Drug Administration.PATIENT WAS FASTINGPERFORMED BY: Vupen [address] [id number] BY: [id number] [facility] [id number] RBC (Bld) [#/Vol] 5.29 10*6/uL Normal 4.14-5.80 [facility] ehensive Internal Medicine; [facility] Work Phone: Comment on above: Test(s) 523691-QCW-H ; 030472-AVO-M; 697223-Vuflzifgcodfr; 328471-Cgxfhdvxari, Total; 892849-CAH-J (Total); 541391-Ynrxn LDL-P; 713349-OCU Size; 319582-MY-KV Scorewas developed and its performance characteristics determinedby Sp[employer]. It has not been cleared or approved by the Foodand Drug Administration.PATIENT WAS FASTINGPERFORMED BY: Vupen [address] [id number] BY: Tackle Grab6370 [facility] [id number] WBC (Bld) [#/Vol] 6.9 {x10E3/uL} Normal 3.4-10.8 [facility] prehensive Internal Medicine; [facility] Work Phone: Comment on above: Test(s) 654596-BQD-N ; 364966-FKS-W; 197714-Xruppmkynewey; 394181-Tmegeecsxjy, Total; 985221-FGR-R (Total); 109949-Xzaon LDL-P; 178214-WRN Size; 944482-NM-NL Scorewas developed and its performance characteristics determinedby Spindle. It has not been cleared or approved by the Foodand Drug Administration.PATIENT WAS FASTINGPERFORMED BY: Vupen [address] [id number] BY: Tackle Grab6370 Buz [facility] [id number] WBC (Bld) [#/Vol] 6.9 10*3/uL Normal 3.4-10.8 [facility] Internal Medicine; [facility] Work Phone: Comment on above: Test(s) 943222-ICM-O ; 684499-ZSU-K; 477092-Uqajwpssawqsp; 396948-Gsiqvnpswgs, Total; 927189-CSU-E (Total); 289497-Rxtfp LDL-P; 438730-SSD Size; 829718-GP-KB Scorewas developed and its performance characteristics determinedby Spindle. It has not been cleared or approved by the Foodand Drug Administration.PATIENT WAS FASTINGPERFORMED BY: eFans[address] [id number] BY: Tackle Grab6370 Buz [facility] HospitalRECUPYLAtrium Health [facility]apolis [id number] METABOLIC PANEL, COMPREHENSI VE (19694)Ordered By: Costing Manager on 02-14-2020 Albumin [Mass/Vol] 4.4 g/dL Normal 3.7-4.7 [facility] Internal Medicine; [facility] Work Phone: Comment on above: Test(s) 640611-FJT-O ; 410490-HNL-B; 036691-Eynxppdtlyqmn; 097427-Ihrcunvwrhx, Total; 080931-BGE-B (Total); 020962-Ouubt LDL-P; 549074-SHQ Size; 866334-TA-FO Scorewas developed and its performance characteristics determinedby Spindle. It has not been cleared or approved by the Foodand Drug Administration.PATIENT WAS FASTINGPERFORMED BY: Vupen [address] [id number] BY: Tackle Grab6370 Dobbs [facility] [id number] Albumin/Globulin [Mass ratio] 1.8 {ratio} Normal 1.2-2.2 [facility]; [facility] Work Phone: Comment on above: Test(s) 574740-YHL-X ; 949142-THL-R; 108738-Hxkwpuoaygsxf; 918062-Bdtiqflbwvp, Total; 000968-UZP-B (Total); 289878-Irpul LDL-P; 761949-ROS Size; 243564-IK-OZ Scorewas developed and its performance characteristics determinedby Spindle. It has not been cleared or approved by the Foodand Drug Administration.PATIENT WAS FASTINGPERFORMED BY: Vupen [address] [id number] BY: Think Silicon70 [facility] [id number] ALP [Catalytic activity/Vol] 72 [iU]/L Normal 39-117 [facility]; [facility] Work Phone: Comment on above: Test(s) 891313-HTK-R ; 491760-BJD-H; 354210-Burfjxilwjbgw; 540493-Eyfatsaribk, Total; 070044-YCS-Z (Total); 013037-Ujltp LDL-P; 937761-NVW Size; 204660-MC-RR Scorewas developed and its performance characteristics determinedby Spindle. It has not been cleared or approved by the Foodand Drug Administration.PATIENT WAS FASTINGPERFORMED BY: Vupen [address] [id number] BY: Tackle Grab6370 [facility] [id number] ALP [Catalytic activity/Vol] 72 U/L Normal 39-117 [facility]; [facility] Work Phone: Comment on above: Test(s) 064310-ADH-V ; 425469-PAK-R; 740383-Bnjhuklhoiyen; 267832-Yezuigsspyp, Total; 158433-ILN-U (Total); 863483-Yzrbx LDL-P; 354321-HXZ Size; 894269-NC-ZG Scorewas developed and its performance characteristics determinedby Spindle. It has not been cleared or approved by the Foodand Drug Administration.PATIENT WAS FASTINGPERFORMED BY: Vupen [address] [id number] BY: 8digitslin6370 [facility] [id number] ALT [Catalytic activity/Vol] 21 [iU]/L Normal 0-44 [facility]; [facility] Work Phone: Comment on above: Test(s) 826189-IDL-C ; 269240-SCD-W; 066168-Rtgrhsvnrwygm; 066403-Zeilxpreqyk, Total; 106092-NIR-X (Total); 039272-Mexhi LDL-P; 102680-ANX Size; 325376-OG-DV Scorewas developed and its performance characteristics determinedby Spindle. It has not been cleared or approved by the Foodand Drug Administration.PATIENT WAS FASTINGPERFORMED BY: Vupen [address] [id number] BY: Azoi Rfavpw3753 [facility] [id number] ALT [Catalytic activity/Vol] 21 U/L Normal 0-44 [facility]; [facility] Work Phone: Comment on above: Test(s) 768250-HCU-E ; 075638-EIT-U; 884726-Mkenohssdqsmx; 566653-Joccrpdbkdk, Total; 675972-PKF-N (Total); 564056-Gqltf LDL-P; 834616-CHP Size; 534571-RK-OS Scorewas developed and its performance characteristics determinedby Spindle. It has not been cleared or approved by the Foodand Drug Administration.PATIENT WAS FASTINGPERFORMED BY: Accertify[address] [id number] BY: AccertifyInspira Medical Center WoodburyXmyoqx8975 [facility] [id number] AST [Catalytic activity/Vol] 21 [iU]/L Normal 0-40 [facility]; [facility] Work Phone: Comment on above: Test(s) 105853-IRG-H ; 643097-EED-C; 966390-Zpgoiyjbhsduh; 685084-Ayhokxkcpnh, Total; 412049-BBL-W (Total); 977472-Muqdf LDL-P; 132285-MFW Size; 939577-PB-VS Scorewas developed and its performance characteristics determinedby Spindle. It has not been cleared or approved by the Foodand Drug Administration.PATIENT WAS FASTINGPERFORMED BY: Vupen [address] [id number] BY: [id number] [facility] [id number] AST [Catalytic activity/Vol] 21 U/L Normal 0-40 [facility]; [facility] Work Phone: Comment on above: Test(s) 743391-AJD-Y ; 367639-AAI-M; 396753-Hitsrpviklfsn; 451924-Kntwliyzvhi, Total; 054269-CTD-I (Total); 198761-Ltjix LDL-P; 599177-MMC Size; 830331-GL-TF Scorewas developed and its performance characteristics determinedby Spindle. It has not been cleared or approved by the Foodand Drug Administration.PATIENT WAS FASTINGPERFORMED BY: Vupen [address] [id number] BY: Tackle Grab6370 [facility] [id number] Bilirubin [Mass/Vol] 0.3 mg/dL Normal 0.0-1.2 [facility] Internal Medicine; [facility] Work Phone: Comment on above: Test(s) 782468-VTN-Q ; 131762-USX-R; 298405-Beojxksireuur; 389307-Zmuhgebjyuj, Total; 044364-EUF-E (Total); 834536-Fvwnt LDL-P; 595434-WPR Size; 435503-PK-RE Scorewas developed and its performance characteristics determinedby Spindle. It has not been cleared or approved by the Foodand Drug Administration.PATIENT WAS FASTINGPERFORMED BY: Vupen [address] [id number] BY: Azoi Cvzmeu5221 [facility] [id number] Calcium [Mass/Vol] 10.1 mg/dL Normal 8.6-10.2 [facility] Internal Medicine; [facility] Work Phone: Comment on above: Test(s) 569811-PNY-Z ; 156854-SHX-V; 907239-Bkxaafptoplmj; 682221-Aaweakojojl, Total; 678670-MVU-T (Total); 618818-Ycyrk LDL-P; 229148-IHC Size; 216666-HX-MD Scorewas developed and its performance characteristics determinedby Spindle. It has not been cleared or approved by the Foodand Drug Administration.PATIENT WAS FASTINGPERFORMED BY: Vupen [address] [id number] BY: Zank70 [employer] - Smartphone RFIDWilson [facility] Center [id number] Chloride [Moles/Vol] 106 mmol/L Normal 96-106 [facility] Internal Medicine; [facility] Work Phone: Comment on above: Test(s) 006923-GJJ-Y ; 542050-CYS-X; 791084-Laceunwdgytkp; 219222-Xpkmtctzfuz, Total; 691898-RZE-O (Total); 224110-Lfxua LDL-P; 158955-JTH Size; 582819-LX-JM Scorewas developed and its performance characteristics determinedby Spindle. It has not been cleared or approved by the Foodand Drug Administration.PATIENT WAS FASTINGPERFORMED BY: Vupen [address] [id number] BY: Tackle Grab6370 [facility] [id number] CO2 [Moles/Vol] 23 mmol/L Normal 20-29 [facility] Internal Medicine; [facility] Work Phone: Comment on above: Test(s) 659022-IVI-K ; 510125-CYI-A; 858256-Wmdtiexpxwhlu; 650855-Nabzeqpmgsf, Total; 272857-YAY-F (Total); 502952-Kvfkz LDL-P; 830909-KST Size; 930834-DP-IB Scorewas developed and its performance characteristics determinedby Spindle. It has not been cleared or approved by the Foodand Drug Administration.PATIENT WAS FASTINGPERFORMED BY: eFans[address] [id number] BY: Tackle Grab6370 [facility] [id number] Creatinine [Mass/Vol] 1.31 mg/dL Abnormal 0.76-1.27 Com prehensive Internal Medicine; [facility] Work Phone: Comment on above: Test(s) 999813-AFD-F ; 754395-MLT-H; 257652-Aggcqlsfnnadt; 783148-Jbwcgqtblfu, Total; 752480-RQY-Z (Total); 948403-Gogph LDL-P; 368698-MJG Size; 703517-YS-EC Scorewas developed and its performance characteristics determinedby Spindle. It has not been cleared or approved by the FoodCureLauncher Drug Administration.PATIENT WAS FASTINGPERFORMED BY: Vupen [address] [id number] BY: Zank70 [facility] [id number] GFR/1.73 sq M predicted among blacks CKD-EPI (S/P/Bld) [Vol rate/Area] 62 mL/min/1.73 Normal [facility]; [facility] Work Phone: Comment on above: Test(s) 249684-YNL-F ; 139167-AKL-L; 371295-Dxpmmhadadydo; 629185-Dustflusewt, Total; 570660-YVV-I (Total); 223914-Clvpf LDL-P; 746788-QXC Size; 369944-HJ-CF Scorewas developed and its performance characteristics determinedby Spindle. It has not been cleared or approved by the Foodand Drug Administration.PATIENT WAS FASTINGPERFORMED BY: Vupen [address] [id number] BY: 6Senselin6370 [facility] [id number] GFR/1.73 sq M predicted among non-blacks CKD-EPI (S/P/Bld) [Vol rate/Area] 54 mL/min/1.73 Abnormal [facility]; [facility] Work Phone: Comment on above: Test(s) 737327-DEL-X ; 083921-XTJ-K; 384978-Iikanfiosjvxa; 834247-Jmckqbtlves, Total; 993634-VHW-Z (Total); 923991-Whchf LDL-P; 352878-GIK Size; 498137-EL-SD Scorewas developed and its performance characteristics determinedby Spindle. It has not been cleared or approved by the Foodand Drug Administration.PATIENT WAS FASTINGPERFORMED BY: Vupen [address] [id number] BY: Zank70 [facility] [id number] Globulin (S) [Mass/Vol] 2.5 g/dL Normal 1.5-4.5 [facility]; [facility] Work Phone: Comment on above: Test(s) 961157-YHM-N ; 553978-HBY-Q; 041695-Yqtdkvijhryas; 975776-Twreagjlgsh, Total; 502964-ZJB-I (Total); 905315-Dsgar LDL-P; 695499-STB Size; 342526-WV-FN Scorewas developed and its performance characteristics determinedby Spindle. It has not been cleared or approved by the Foodand Drug Administration.PATIENT WAS FASTINGPERFORMED BY: Vupen [address] [id number] BY: Tackle Grab6370 [facility] [id number] Glucose [Mass/Vol] 92 mg/dL Normal 65-99 Compre [facility] Internal Medicine; [facility] Work Phone: Comment on above: Test(s) 232749-VKH-A ; 091535-UVV-T; 506640-Lpiziwzsuftuq; 454086-Oqlspknkfxw, Total; 875562-IBA-M (Total); 170873-Iyklz LDL-P; 752476-MAR Size; 701446-EF-TU Scorewas developed and its performance characteristics determinedby Spindle. It has not been cleared or approved by the Foodand Drug Administration.PATIENT WAS FASTINGPERFORMED BY: [employer] [id number] BY: AccertifyAdvanced Care Hospital of Southern New MexicoDexhue3519 [facility] [id number] Potassium [Moles/Vol] 4.7 mmol/L Normal 3.5-5.2 [facility] Internal Medicine; [facility] Internal Medicine Work Phone: Comment on above: Test(s) 806495-PVR-Z ; 788420-FOB-V; 471658-Eowvakjcsvfbc; 381482-Itsjjwfrlue, Total; 301639-SFK-T (Total); 286080-Jdwiv LDL-P; 029884-ATU Size; 321857-GA-JN Scorewas developed and its performance characteristics determinedby Spindle. It has not been cleared or approved by the Foodand Drug Administration.PATIENT WAS FASTINGPERFORMED BY: Vupen [address] [id number] BY: Accertify Oxjwpn1263 [facility] [id number] Protein [Mass/Vol] 6.9 g/dL Normal 6.0-8.5 [facility] Internal Medicine; [facility] Internal Medicine Work Phone: Comment on above: Test(s) 929179-BUZ-P ; 789015-OFE-W; 978222-Evzyxylqtxonf; 874910-Aobkxgibeyq, Total; 673678-FRE-H (Total); 138889-Hqnqa LDL-P; 139989-IHN Size; 279384-JM-WB Scorewas developed and its performance characteristics determinedby Spindle. It has not been cleared or approved by the Foodand Drug Administration.PATIENT WAS FASTINGPERFORMED BY: Accertify[address] [id number] BY: AccertifyAdvanced Care Hospital of Southern New MexicoYdagdk1452 [facility] [id number] Sodium [Moles/Vol] 143 mmol/L Normal 134-144 [facility] Internal Medicine; [facility] Work Phone: Comment on above: Test(s) 612842-BES-P ; 676419-VRD-T; 569992-Xxjfkimphlkya; 390987-Yomhkvwnrql, Total; 315393-YUB-V (Total); 270133-Krezs LDL-P; 303303-JYP Size; 311419-HQ-MG Scorewas developed and its performance characteristics determinedby Spindle. It has not been cleared or approved by the Foodand Drug Administration.PATIENT WAS FASTINGPERFORMED BY: Vupen [address] [id number] BY: Azoi Ttvsqz1215 [facility] [id number] Urea nitrogen [Mass/Vol] 23 mg/dL Normal 8-27 [facility]; [facility] Work Phone: Comment on above: Test(s) 475531-RYF-W ; 326473-IDS-E; 526927-Pstuzbbpyqree; 460430-Vesfxeajbqp, Total; 417263-DTS-J (Total); 233596-Nxwrc LDL-P; 944693-YCK Size; 912468-ZX-VW Scorewas developed and its performance characteristics determinedby Spindle. It has not been cleared or approved by the Foodand Drug Administration.PATIENT WAS FASTINGPERFORMED BY: Vupen [address] [id number] BY: 6Senselin6370 [facility] [id number] Urea nitrogen/Creatinine [Mass ratio] 18 mg/mg Normal 10-24 [facility]; [facility] Work Phone: Comment on above: Test(s) 123087-TNH-W ; 751549-TJI-H; 774518-Uzgzerkawhrle; 098771-Rkwtkyctoez, Total; 857755-MGU-L (Total); 520430-Nezvt LDL-P; 608268-SHB Size; 075930-NF-QE Scorewas developed and its performance characteristics determinedby Spindle. It has not been cleared or approved by the Foodand Drug Administration.PATIENT WAS FASTINGPERFORMED BY: Vupen [address] [id number] BY: Tackle Grab6370 wmblyAtrium Health Kannapolis [id number] MICROALBUMINOrdered By: Syst em Pearl Glue Operator on 02-14-2020 Albumin DL <= 20 mg/L (U) [Mass/Vol] 10.4 ug/mL Normal [facility]; [facility] Work Phone: Comment on above: Test(s) 002454-UFF-T ; 966242-RNQ-B; 299632-Pvrsdjkqkotnv; 946196-Fisvyfraqio, Total; 830452-AJX-T (Total); 346179-Zpnfs LDL-P; 900260-IMC Size; 406526-GT-RA Scorewas developed and its performance characteristics determinedby Spindle. It has not been cleared or approved by the Foodand Drug Administration.PATIENT WAS FASTINGPERFORMED BY: eFans[address] [id number] BY: Zank70 wmblyAtrium Health [facility] [id number] Albumin/Creatinine (U) [Mass ratio] 7 {mg/g_creat} Normal 0-29 [facility]; [facility] Work Phone: Comment on above: Normal: 0 - 29 Moder ately increased: 30 - 300 Severely increased: >300 Test(s) 015694-DXL-R ; 017752-QGX-Y; 008987-Egjunxpeuhacw; 334515-Csizxjtsuvn, Total; 065242-MTY-X (Total); 991800-Ldmdu LDL-P; 116766-DMS Size; 253665-RA-BT Scorewas developed and its performance characteristics determinedby Spindle. It has not been cleared or approved by the Foodand Drug Administration.PATIENT WAS FASTINGPERFORMED BY: Vupen [address] [id number] BY: Tackle Grab6370 [facility] [id number] Creatinine (U) [Mass/Vol] 141.7 mg/dL Normal [facility]; [facility] Work Phone: Comment on above: Test(s) 946593-BYR-C ; 188931-CZV-R; 185190-Ejaezvafhgcuq; 643886-Vneuzvmtbmz, Total; 766209-KEP-N (Total); 876560-Jmmcd LDL-P; 748641-DEB Size; 724559-KI-MB Scorewas developed and its performance characteristics determinedby Spindle. It has not been cleared or approved by the Foodand Drug Administration.PATIENT WAS FASTINGPERFORMED BY: Vupen [address] [id number] BY: Spindle Rrodfm2171 [facility] [id number] NMR Profile (03248)Ordered B y: Costing Manager on 02-14-2020 Cholesterol [Mass/Vol] 173 mg/dL Normal 100-199 [facility] Internal Medicine; [facility] Work Phone: Comment on above: Test(s) 615906-SCL-G ; 343512-OLK-J; 046486-Lrbrbrzxotqbz; 801157-Nfvjamlfvut, Total; 688551-XQB-T (Total); 250765-Zhyha LDL-P; 124915-OTD Size; 195063-FA-ZX Scorewas developed and its performance characteristics determinedby Spindle. It has not been cleared or approved by the Foodand Drug Administration.PATIENT WAS FASTINGPERFORMED BY: Vupen [address] [id number] BY: Azoi Eebczb9481 [facility] [id number] Cholesterol in HDL [Mass/Vol] 60 mg/dL Normal [facility]; [facility] Work Phone: Comment on above: Test(s) 102403-CGW-C ; 610992-KNW-J; 172047-Jtuaewdjywmko; 633822-Kdpcunzcehu, Total; 680448-NXA-H (Total); 810796-Xedcm LDL-P; 986280-IEB Size; 121951-QI-IK Scorewas developed and its performance characteristics determinedby Spindle. It has not been cleared or approved by the Foodand Drug Administration.PATIENT WAS FASTINGPERFORMED BY: [facility] [id number] BY: AccertifyInspira Medical Center WoodburyFubnvk3277 [facility] [id number] Lipoprotein.alpha [Moles/Vol] 35.5 umol/L Normal [facility]; [facility] Work Phone: Comment on above: Test(s) 242371-QNI-K ; 778683-VDG-A; 650418-Exqdmgolgtwad; 930746-Kpydgxjzmiv, Total; 322915-OHQ-Q (Total); 955053-Mygfz LDL-P; 186021-CBU Size; 411964-IT-HY Scorewas developed and its performance characteristics determinedby Spindle. It has not been cleared or approved by the Foodand Drug Administration.PATIENT WAS FASTINGPERFORMED BY: Accertify[address] [id number] BY: AccertifyInspira Medical Center WoodburyZjotpg4070 [facility] [id number] Lipoprotein.beta.subpar ticle [Entitic length] 21.2 nm Normal [facility] Internal Medicine; [facility] Work Phone: Comment on above: INTERPRETATIVE INFORMATION PARTICLE CONCENTRATION AND SIZE <--Lower CVD Risk Higher CVD Risk--> LDL AND HDL PARTICLES Percentile in Reference Population HDL-P (total) High 75th 50th 25th Low >34.9 34.9 30.5 26.7 <26.7 . Small LDL-P Low 25th 50th 75th High <117 117 527 839 >839 . LDL Size <-Large (Pattern A)-> <-Small (Pattern B)-> 23.0 20.6 20.5 19.0 Smal l LDL-P and LDL Size are associated with CVD risk, but not afterLDL-P is taken into account. Test(s) 221470-VZE-J ; 790138-ZHR-V; 378173-Nlujiqffeldmf; 938328-Woubnvuzjjt, Total; 875300-GIJ-C (Total); 648343-Olshs LDL-P; 205713-VMA Size; 445357-OF-PY Scorewas developed and its performance characteristics determinedby Spindle. It has not been cleared or approved by the Foodand Drug Administration.PATIENT WAS FASTINGPERFORMED BY: Vupen [address] [id number] BY: KeclonAtrium Health [facility] [id number] Lipoprotein.beta.subpar ticle [Moles/Vol] 1269 nmol/L Abnormal [facility]; [facility] Work Phone: Comment on above: Low < 1000 Moderate 1000 - 1299 Borderline-High 1300 - 1599 High 1600 - 2000 Very High > 2000 Test(s) 764746-PST-E ; 485852-RVT-I; 405402-Rftkstievihgf; 303941-Momvudanrab, Total; 621944-XNR-U (Total); 411620-Byjdc LDL-P; 218225-MTL Size; 569622-TH-HE Scorewas developed and its performance characteristics determinedby Spindle. It has not been cleared or approved by the Foodand Drug Administration.PATIENT WAS FASTINGPERFORMED BY: Vupen [address] [id number] BY: Zank70 [address] [facility]Wilson [facility] [id number] Lipoprotein.beta.subpar ticle.small [Moles/Vol] 451 nmol/L Normal Comprehe nsive Internal Medicine; [facility] Work Phone: Comment on above: Test(s) 005276-BPE-M ; 626930-ZNH-A; 733194-Fwfigfyjqyrom; 802359-Jwoeqlbzpfy, Total; 828385-GUQ-W (Total); 552724-Znpcq LDL-P; 534751-KQQ Size; 969269-YI-OY Scorewas developed and its performance characteristics determinedby Spindle. It has not been cleared or approved by the Foodand Drug Administration.PATIENT WAS FASTINGPERFORMED BY: Vupen [address] [id number] BY: [employer] Rpewgy7200 wmblyAtrium Health Kannapolis [id number] Triglyceride [Mass/Vol] 61 mg/dL Normal 0-149 [facility]; [facility] Work Phone: Comment on above: Test(s) 553464-JUZ-U ; 624051-NPP-Y; 755544-Knlfbvbeviexw; 562618-Xbvlxuhhapt, Total; 495375-XVL-K (Total); 236201-Fguoa LDL-P; 627242-JJW Size; 280408-UC-FW Scorewas developed and its performance characteristics determinedby Spindle. It has not been cleared or approved by the Foodand Drug Administration.PATIENT WAS FASTINGPERFORMED BY: Vupen [address] [id number] BY: Zank70 wmblyAtrium Health Kannapolis [id number] NMR Profile (57274) 101 mg/dL Abnormal 0-99 [facility]; [facility] Work Phone: Comment on above: . Optimal < 100 Abov e optimal 100 - 129 Borderline 130 - 159 High 160 - 189 Very high > 189 . Test(s) 636078-UEX-I ; 895457-XDP-E; 785844-Npanlbuqvwpic; 577834-Kywhhrwiuax, Total; 850982-RPY-C (Total); 257616-Zyylu LDL-P; 138707-DQY Size; 707725-FN-GO Scorewas developed and its performance characteristics determinedby Spindle. It has not been cleared or approved by the Foodand Drug Administration.PATIENT WAS FASTINGPERFORMED BY: Vupen [address] [id number] BY: Zank70 wmblyAtrium Health [facility]apolis [id number] NMR Profile (53864) 60 mg/dL Normal [facility] Internal Medicine; [facility] Internal Medicine Work Phone: NMR Profile (57640) 61 mg/dL Normal 0-149 [facility] Internal Medicine; [facility] Internal Medicine Work Phone: NMR Profile (03930) 173 mg/dL Normal 100-199 [facility] Internal Medicine; [facility] Internal Medicine Work Phone: TSH (THYROID STIMULATING HOR MAYITO) (89816)Ordered By: Costing Manager on 02-14-2020 TSH Qn 2.730 {uIU/mL} Normal 0.450-4.50 0 [facility] Internal Medicine; [facility] Internal Medicine Work Phone: Comment on above: Test(s) 602478-IGM-W ; 874249-FTZ-V; 009472-Xgnogbhfofjqw; 324157-Hcojcyzoayp, Total; 502041-GDX-P (Total); 221991-Lxvya LDL-P; 665749-WKP Size; 844485-YQ-XX Scorewas developed and its performance characteristics determinedby Spindle. It has not been cleared or approved by the Foodand Drug Administration.PATIENT WAS FASTINGPERFORMED BY: [employer] [id number] BY: AccertifyInspira Medical [facility]yp[facility]t[address] [id number] T3, FREE (TRIDOTHYRONINE) (8 2883)Ordered By: Costing Manager on 12-04-2019 Free T3 [Mass/Vol] 3.0 pg/mL Normal 2.0-4.4 [facility] Internal Medicine; [facility] Internal Medicine Work Phone: Comment on above: PATIENT NOT FASTINGP ERFORMED BY: [place]ertifyAmanda [place] [id number] [facility] [id number] T4, FREE (THYROXINE) (90977) Ordered By: Costing Manager on 12-04-2019 Free T4 [Mass/Vol] 1.33 ng/dL Normal 0.82-1.77 [facility] Internal Medicine; [facility] Internal Medicine Work Phone: Comment on above: PATIENT NOT FASTINGP ERFORMED BY: LETICIA AccertifyInspira Medical Center WoodburyKczxmg4504 [facility] [id number] TSH (33499)Ordered By: Ruba m Pearl Glue Operator on 12-04-2019 TSH Qn 3.920 {uIU/mL} Normal 0.450-4.50 0 [facility]; [facility] Work Phone: Comment on above: PATIENT NOT FASTINGP ERFORMED BY: [facility]ThereRewardsHills [facility]6370 [facility] [id number] CALCIFIDIOL (69702) VIT D 25 Ordered By: Costing Manager on 08-11-2019 25-Hydroxyvitamin D2+25-Hydroxyvitamin D3 [Mass/Vol] 53.8 ng/mL Normal 30.0-100.0 [facility] Work Phone: Comment on above: Vitamin D deficiency has been defined by the [place] [facility] and an Endocrine Society practice guideline as alevel of serum 25-OH vitamin D less than 20 ng/mL (1,2).The Endocrine Society went on to further define vitamin Dinsufficiency as a level between 21 and 29 ng/mL (2).1. IOM ([place] of Medicine). 2010. Dietary reference intakes for calcium and D. [place]: The National Academies Press.2. Clauido MF, Kamilla ZIEGLER, Leonid RANDOLHP, et al. Evaluation, treatment, and prevention of vitamin D deficiency: an Endocrine Society clinical practice guideline. JCEM. 2010; 96(7):1911-30. Test(s) 701328-IVU-A ; 485950-YSO-E; 457391-ISB-L; 139814-Gprasizofgqaw; 105545-Vpyipnlwekp, Total; 161123-RFV-I (Total);775318-Aiuii LDL-P; 458936-GBB Size; 408052-DO-QU Scorewas developed and its performance characteristics determinedby Spindle. It has not been cleared or approved by the Foodand Drug Administration.PATIENT WAS FASTINGPERFORMED BY: [address] [id number] BY: AccertifyInspira Medical Center WoodburyOewxth4279 [facility] [id number] CBC W/AUTO DIFF WBC (72546)O rdered By: Costing Manager on 08-11-2019 Basophils (Bld) [#/Vol] 0.1 {x10E3/uL} Normal 0.0-0.2 [facility] Work Phone: Comment on above: Test(s) 327858-XUC-E ; 197044-CVE-V; 910299-OFC-U; 718321-Fnzfxtmdbwook; 460550-Xhtjkvejfxn, Total; 726515-MYM-I (Total);918921-Jotaf LDL-P; 378650-FBO Size; 746526-AL-ZQ Scorewas developed and its performance characteristics determinedby Spindle. It has not been cleared or approved by the Foodand Drug Administration.PATIENT WAS FASTINGPERFORMED BY: Vupen [address] [id number] BY: Syntricity [facility] HospitalRECUPYLAtrium Health Kannapolis [id number] Basophils (Bld) [#/Vol] 0.1 10*3/uL Normal 0.0-0.2 [facility]; [facility] Work Phone: Comment on above: Test(s) 290267-ONB-W ; 400286-YHW-I; 916781-COX-P; 675095-Zmamphfezovub; 856687-Ntqsopebtdv, Total; 690420-FYO-T (Total);644250-Kgkbm LDL-P; 829003-SYZ Size; 163357-DR-DS Scorewas developed and its performance characteristics determinedby Spindle. It has not been cleared or approved by the FoodCureLauncher Drug Administration.PATIENT WAS FASTINGPERFORMED BY: Vupen [address] [id number] BY: Zank70 wmblyAtrium Health Kannapolis [id number] Basophils/100 WBC (Bld) 1 % Normal C omprehensive Internal Medicine Work Phone: Comment on above: Test(s) 497677-EQQ-D ; 284910-HRY-T; 941779-ZAH-U; 505069-Zxomipcnsaolc; 150666-Dhvbeowexyr, Total; 266704-XHZ-F (Total);224005-Zswrl LDL-P; 852648-DLG Size; 918470-FN-WV Scorewas developed and its performance characteristics determinedby Spindle. It has not been cleared or approved by the Foodand Drug Administration.PATIENT WAS FASTINGPERFORMED BY: Accertify[address] [id number] BY: [place]ify[place] 6135470 [facility] [id number] Eosinophils (Bld) [#/Vol] 0.2 {x10E3/uL} Normal 0.0-0.4 [facility] Work Phone: Comment on above: Test(s) 273012-FQQ-U ; 910093-XEQ-W; 854461-DBO-F; 950681-Wsamrresgdpkl; 228643-Bjskvlvyebp, Total; 572930-EST-T (Total);154827-Xkrds LDL-P; 108559-PMT Size; 727193-XR-ZT Scorewas developed and its performance characteristics determinedby Spindle. It has not been cleared or approved by the Foodand Drug Administration.PATIENT WAS FASTINGPERFORMED BY: Spindle [address] [id number] BY: AccertifyInspira Medical Center WoodburyErgean1653 [facility] [id number] Eosinophils (Bld) [#/Vol] 0.2 10*3/uL Normal 0.0-0.4 [facility]; [facility] Work Phone: Comment on above: Test(s) 068140-GXP-P ; 320409-AJJ-X; 004095-HYE-U; 840873-Yvkjxvatpcpto; 131222-Ppxndcxrtre, Total; 735308-SSL-D (Total);147365-Hqabp LDL-P; 512198-TGO Size; 766105-OT-JU Scorewas developed and its performance characteristics determinedby Spindle. It has not been cleared or approved by the Foodand Drug Administration.PATIENT WAS FASTINGPERFORMED BY: LabCo[address] [id number] BY: AccertifyAdvanced Care Hospital of Southern New MexicoLdgjzh9259 [facility] [id number] Eosinophils/100 WBC (Bld) 4 % Normal [facility] Work Phone: Comment on above: Test(s) 229802-XAP-H ; 351801-NHO-U; 941668-GGN-W; 999988-Udicmefpzaywa; 467207-Vdkowhrqimd, Total; 225402-ZKK-I (Total);575649-Pjsdl LDL-P; 661488-NIL Size; 863259-QO-NU Scorewas developed and its performance characteristics determinedby Spindle. It has not been cleared or approved by the Foodand Drug Administration.PATIENT WAS FASTINGPERFORMED BY: Vupen [address] [id number] BY: [id number] U Grok It - Smartphone RFIDWilson Medical Center [id number] Erythrocyte distribution width (RBC) [Ratio] 13.6 % Normal 11.6-15.4 [facility] Work Phone: Comment on above: Test(s) 940313-UVL-V ; 645936-DFM-K; 342072-LSS-U; 841540-Yekpwxuawfxdq; 465943-Cmtughwwumo, Total; 358415-HME-B (Total);777534-Wzneq LDL-P; 011481-PCJ Size; 223679-SI-BB Scorewas developed and its performance characteristics determinedby Spindle. It has not been cleared or approved by the Foodand Drug Administration.PATIENT WAS FASTINGPERFORMED BY: Spindle [address] [id number] BY: Accertify Ulwkdi6660 [facility] [id number] Hematocrit (Bld) [Volume fraction] 45.9 % Normal 37.5-51.0 [facility] Work Phone: Comment on above: Test(s) 168035-KKQ-Q ; 665706-BGQ-E; 093060-JMT-W; 955153-Ywwtqkhuwosvs; 635312-Rrtukyflnvu, Total; 717104-ZXP-L (Total);166725-Diymq LDL-P; 068090-MQJ Size; 519130-FC-QE Scorewas developed and its performance characteristics determinedby Spindle. It has not been cleared or approved by the Foodand Drug Administration.PATIENT WAS FASTINGPERFORMED BY: Vupen [address] [id number] BY: Azoi Aegfzt9538 [facility] [id number] Hemoglobin (Bld) [Mass/Vol] 15.2 g/dL Normal 13.0-17.7 [facility] Work Phone: Comment on above: Test(s) 809670-LRM-J ; 671694-NXM-J; 978218-FBT-Q; 555442-Qusjjsdjtsieh; 926098-Cktpkotjdik, Total; 271301-ZQG-G (Total);104351-Bsfjc LDL-P; 174570-NGU Size; 327149-DD-JD Scorewas developed and its performance characteristics determinedby Spindle. It has not been cleared or approved by the Foodand Drug Administration.PATIENT WAS FASTINGPERFORMED BY: Vupen [address] [id number] BY: Azoi Yetbaw4923 [facility] [id number] Immature granulocytes (Bld) [#/Vol] 0.0 {x10E3/uL} Normal 0.0-0.1 [facility] Work Phone: Comment on above: Test(s) 272793-TRS-N ; 045983-OMH-L; 725457-YRE-O; 383704-Zmvcqabkfltwi; 769254-Xhcqjiwaaxm, Total; 277970-EIL-P (Total);961490-Igvvs LDL-P; 982466-XJS Size; 458471-ZD-EI Scorewas developed and its performance characteristics determinedby Spindle. It has not been cleared or approved by the Foodand Drug Administration.PATIENT WAS FASTINGPERFORMED BY: Vupen [address] [id number] BY: Tackle Grab6370 [facility] [id number] Immature granulocytes (Bld) [#/Vol] 0.0 10*3/uL Normal 0.0-0.1 [facility]; [facility] Work Phone: Comment on above: Test(s) 544524-MXU-T ; 479943-FON-V; 238480-WKI-A; 659461-Ayxwcouxkurdc; 517515-Ryivbvviwep, Total; 654628-JCN-V (Total);985759-Oymin LDL-P; 895561-BDD Size; 956490-DR-JI Scorewas developed and its performance characteristics determinedby Spindle. It has not been cleared or approved by the Foodand Drug Administration.PATIENT WAS FASTINGPERFORMED BY: eFans[address] [id number] BY: Tackle Grab6370 [facility]Oz[facility] [id number] Immature granulocytes/100 WBC (Bld) 0 % Normal [facility] Work Phone: Comment on above: Test(s) 729629-SBN-D ; 423004-LKT-W; 077836-BBR-Y; 589022-Dzlwhjamqwrgu; 851856-Sghegunfqip, Total; 102907-NTY-P (Total);625323-Bfdkl LDL-P; 939808-BGH Size; 034060-CX-GC Scorewas developed and its performance characteristics determinedby Spindle. It has not been cleared or approved by the Foodand Drug Administration.PATIENT WAS FASTINGPERFORMED BY: Vupen [address] [id number] BY: 6Senselin6370 [facility] [id number] Lymphocytes (Bld) [#/Vol] 1.6 {x10E3/uL} Normal 0.7-3.1 [facility] Work Phone: Comment on above: Test(s) 300352-DTG-Q ; 897955-BIR-D; 870021-FSX-W; 612349-Dppxxkcwqrnsz; 244225-Uslamowxswv, Total; 270402-QPZ-Z (Total);706409-Splqw LDL-P; 638074-XLF Size; 453884-ZR-IG Scorewas developed and its performance characteristics determinedby Spindle. It has not been cleared or approved by the Foodand Drug Administration.PATIENT WAS FASTINGPERFORMED BY: eFans[address] [id number] BY: Zank[address] [place] [address] [id number] Lymphocytes (Bld) [#/Vol] 1.6 10*3/uL Normal 0.7-3.1 [facility]; [facility] Work Phone: Comment on above: Test(s) 152175-RVZ-E ; 760314-JBL-W; 893012-JMN-R; 731174-Kbpmdynuuthcy; 718715-Xumbuuvyzqj, Total; 340392-GHP-Q (Total);508173-Lvnzl LDL-P; 606310-DHV Size; 399958-CF-OD Scorewas developed and its performance characteristics determinedby Spindle. It has not been cleared or approved by the Foodand Drug Administration.PATIENT WAS FASTINGPERFORMED BY: eFans[address] [id number] BY: Tackle Grab6370 [facility] [id number] Lymphocytes/100 WBC (Bld) 28 % Normal [facility] Work Phone: Comment on above: Test(s) 191229-CBG-F ; 501976-JZS-D; 629679-BIA-O; 696800-Xyaditkjyucvu; 641560-Etobjpvqwrl, Total; 019290-RQM-F (Total);637540-Uccmx LDL-P; 757604-BMS Size; 413178-SP-UC Scorewas developed and its performance characteristics determinedby Spindle. It has not been cleared or approved by the Foodand Drug Administration.PATIENT WAS FASTINGPERFORMED BY: Vupen [address] [id number] BY: Tackle Grab6370 [facility] [id number] MCH (RBC) [Entitic mass] 29.2 pg Normal 26.6-33.0 [facility] Internal Medicine Work Phone: Comment on above: Test(s) 586553-SCT-Q ; 941226-LGJ-A; 836307-PSJ-O; 397759-Dwihuxjfkwqzm; 527606-Gwkcljuxtjs, Total; 167764-FYZ-H (Total);023452-Rrsdv LDL-P; 905428-QEN Size; 571533-LY-XJ Scorewas developed and its performance characteristics determinedby Spindle. It has not been cleared or approved by the Foodand Drug Administration.PATIENT WAS FASTINGPERFORMED BY: Vupen [address] [id number] BY: Zank70 [facility]bs[facility] [id number] MCHC (RBC) [Mass/Vol] 33.1 g/dL Normal 31.5-35.7 [facility] Internal Medicine Work Phone: Comment on above: Test(s) 921202-SSL-W ; 161187-INP-M; 473807-NWO-J; 302278-Ewimmvukroaom; 713770-Qgpinqcdquh, Total; 137532-OYX-P (Total);469922-Qdqpt LDL-P; 929033-CMH Size; 051655-MS-WL Scorewas developed and its performance characteristics determinedby Spindle. It has not been cleared or approved by the Foodand Drug Administration.PATIENT WAS FASTINGPERFORMED BY: Vupen [address] [id number] BY: Tackle Grab6370 [facility] [id number] MCV (RBC) [Entitic vol] 88 fL Normal 79-97 C [facility] Internal Medicine Work Phone: Comment on above: Test(s) 921138-UHR-G ; 181359-WAE-A; 544684-JTX-D; 798275-Fqyvorsxwuxth; 386983-Mrxyficdtdl, Total; 962462-YBA-M (Total);828391-Tnvku LDL-P; 918200-JXA Size; 396972-FA-HT Scorewas developed and its performance characteristics determinedby Spindle. It has not been cleared or approved by the Foodand Drug Administration.PATIENT WAS FASTINGPERFORMED BY: Accertify[address] [id number] BY: AccertifyAmanda [place] 6135470 [facility] [id number] Monocytes (Bld) [#/Vol] 0.5 {x10E3/uL} Normal 0.1-0.9 [facility] Work Phone: Comment on above: Test(s) 762693-IHG-G ; 817418-IUO-X; 180872-WSO-K; 359268-Icusnuccnollj; 608144-Qbuteifhpne, Total; 424919-UMP-K (Total);533614-Cqgez LDL-P; 455924-ZXN Size; 228563-PT-GZ Scorewas developed and its performance characteristics determinedby Spindle. It has not been cleared or approved by the Foodand Drug Administration.PATIENT WAS FASTINGPERFORMED BY: Vupen [address] [id number] BY: AccertifyInspira Medical Center WoodburySexrpu4452 [facility] [id number] Monocytes (Bld) [#/Vol] 0.5 10*3/uL Normal 0.1-0.9 [facility]; [facility] Work Phone: Comment on above: Test(s) 005720-RKG-Y ; 582325-YUD-P; 749460-DCQ-T; 946798-Utmqfknayviku; 404123-Ybtmhmywzel, Total; 003482-GSK-N (Total);741455-Rrkyk LDL-P; 728029-RQC Size; 867365-LJ-GR Scorewas developed and its performance characteristics determinedby Spindle. It has not been cleared or approved by the Foodand Drug Administration.PATIENT WAS FASTINGPERFORMED BY: Vupen [address] [id number] BY: [employer] Rqitil9699 [facility] [id number] Monocytes/100 WBC (Bld) 8 % Normal C [facility]mpfort [facility] hospitalensive Internal Medicine Work Phone: Comment on above: Test(s) 367443-LHY-N ; 242388-GRD-F; 964498-WVF-I; 628607-Bivaicfnqagon; 936834-Rqownazfhkh, Total; 893440-ROV-D (Total);913311-Hhqiq LDL-P; 913346-MHB Size; 012462-EX-QE Scorewas developed and its performance characteristics determinedby Spindle. It has not been cleared or approved by the Foodand Drug Administration.PATIENT WAS FASTINGPERFORMED BY: Vupen [address] [id number] BY: Zank70 wmblyAtrium Health Kannapolis [id number] Neutrophils (Bld) [#/Vol] 3.5 {x10E3/uL} Normal 1.4-7.0 [facility] Work Phone: Comment on above: Test(s) 516311-ZTY-S ; 521792-XLC-B; 347015-PIP-R; 681476-Ldlahaofcjrjk; 429437-Qauyaeegizs, Total; 942479-FEX-Z (Total);744458-Hnvpb LDL-P; 344687-ZEX Size; 942593-XU-CZ Scorewas developed and its performance characteristics determinedby Spindle. It has not been cleared or approved by the Foodand Drug Administration.PATIENT WAS FASTINGPERFORMED BY: Accertify[address] [id number] BY: [employer] Fxxyre6021 [facility] [id number] Neutrophils (Bld) [#/Vol] 3.5 10*3/uL Normal 1.4-7.0 [facility]; [facility] Work Phone: Comment on above: Test(s) 786161-OTT-V ; 195142-ZLO-B; 746287-CPV-O; 636475-Iqmgoziwkbegv; 183947-Teezpjiwuuf, Total; 968089-AUS-H (Total);083977-Axojc LDL-P; 496886-EQD Size; 417425-TC-QG Scorewas developed and its performance characteristics determinedby Spindle. It has not been cleared or approved by the Foodand Drug Administration.PATIENT WAS FASTINGPERFORMED BY: eFans[address] [id number] BY: Zank70 [facility] [id number] Neutrophils/100 WBC (Bld) 59 % Normal [facility] Work Phone: Comment on above: Test(s) 907087-SQC-H ; 224864-GQS-V; 452764-TSJ-H; 439677-Yvwsirkbbfyul; 138130-Wrhbhrfmxrs, Total; 845813-YCO-W (Total);024898-Iiawa LDL-P; 192406-LIT Size; 408700-KV-ZT Scorewas developed and its performance characteristics determinedby Spindle. It has not been cleared or approved by the Foodand Drug Administration.PATIENT WAS FASTINGPERFORMED BY: eFans[address] [id number] BY: Tackle Grab6370 [facility] [id number] Platelets (Bld) [#/Vol] 177 {x10E3/uL} Normal 150-450 [facility] Work Phone: Comment on above: Test(s) 911846-ZHS-N ; 401560-ONW-G; 062291-OUF-L; 819831-Ldakozjvqtvzp; 690100-Telfhpfaxtb, Total; 406529-FUQ-S (Total);675808-Vnxpt LDL-P; 985876-WYW Size; 197217-DA-UM Scorewas developed and its performance characteristics determinedby Spindle. It has not been cleared or approved by the Foodand Drug Administration.PATIENT WAS FASTINGPERFORMED BY: Vupen [address] [id number] BY: Tackle Grab6370 wmblyAtrium Health Kannapolis [id number] Platelets (Bld) [#/Vol] 177 10*3/uL Normal 150-450 [facility]; [facility] Internal Medicine Work Phone: Comment on above: Test(s) 919606-WHA-Q ; 562796-EBH-K; 536490-ZNW-D; 638439-Uoatuafiiefug; 021184-Azpjsgribdm, Total; 242182-OOC-I (Total);805025-Hlyzm LDL-P; 630453-ADV Size; 607635-JN-RC Scorewas developed and its performance characteristics determinedby Spindle. It has not been cleared or approved by the Foodand Drug Administration.PATIENT WAS FASTINGPERFORMED BY: Vupen [address] [id number] BY: Tackle Grab6370 wmblyAtrium Health Kannapolis [id number] RBC (Bld) [#/Vol] 5.21 {x10E6/uL} Normal 4.14-5.80 [facility] Internal [facility] Work Phone: Comment on above: Test(s) 139787-NWC-N ; 363699-ZTW-Q; 418793-PFW-O; 250126-Jiijzjumpyspg; 192309-Yvodiacryjk, Total; 908483-UZL-O (Total);529764-Qnaqv LDL-P; 726330-AUU Size; 872803-ME-WQ Scorewas developed and its performance characteristics determinedby Spindle. It has not been cleared or approved by the Foodand Drug Administration.PATIENT WAS FASTINGPERFORMED BY: Vupen [address] [id number] BY: 6Senselin6370 [facility] [id number] RBC (Bld) [#/Vol] 5.21 10*6/uL Normal 4.14-5.80 [facility] Internal Medicine; [facility] Internal Medicine Work Phone: Comment on above: Test(s) 556170-FJZ-L ; 519768-CYH-Q; 939229-CRD-Z; 626872-Lkqvdaeuviins; 324114-Iikwrymypbo, Total; 518673-CFL-R (Total);684829-Aohzr LDL-P; 686193-MTU Size; 542565-YK-RC Scorewas developed and its performance characteristics determinedby Spindle. It has not been cleared or approved by the Foodand Drug Administration.PATIENT WAS FASTINGPERFORMED BY: Spindle [address] [id number] BY: Spindle Cuqcvw7922 [facility] [id number] WBC (Bld) [#/Vol] 5.9 {x10E3/uL} Normal 3.4-10.8 [facility] Work Phone: Comment on above: Test(s) 748047-HRS-H ; 406622-ISQ-P; 861431-PLL-D; 573110-Emohkffohsfva; 070382-Frwsvvkrufr, Total; 518057-AND-N (Total);271472-Zcbmx LDL-P; 860455-NBP Size; 568292-ZG-JO Scorewas developed and its performance characteristics determinedby Spindle. It has not been cleared or approved by the Foodand Drug Administration.PATIENT WAS FASTINGPERFORMED BY: Spindle [address] [id number] BY: Accertify Aeuwur9062 [facility] [id number] WBC (Bld) [#/Vol] 5.9 10*3/uL Normal 3.4-10.8 [facility] Internal Medicine; [facility] Work Phone: Comment on above: Test(s) 976579-PYH-F ; 382968-MAH-P; 852657-BUL-V; 678835-Nsyhtiqmlnaye; 332455-Apuilsgiyir, Total; 006485-WRN-D (Total);470104-Eshwv LDL-P; 070576-PJA Size; 014114-CN-LM Scorewas developed and its performance characteristics determinedby Spindle. It has not been cleared or approved by the Foodand Drug Administration.PATIENT WAS FASTINGPERFORMED BY: Vupen [address] [id number] BY: Accertify Padpqv9604 [facility] [id number] METABOLIC PANEL, COMPREHENSI VE (03323)Ordered By: Costing Manager on 08-11-2019 Albumin [Mass/Vol] 4.5 g/dL Normal 3.7-4.7 [facility] Internal Medicine Work Phone: Comment on above: Test(s) 307377-JPH-U ; 015520-CRK-O; 210484-QKJ-Z; 904179-Gfwgrayunhnix; 178804-Ykpwkhhxnyf, Total; 553009-XUP-N (Total);237078-Fwedr LDL-P; 108027-WFM Size; 271382-TO-RG Scorewas developed and its performance characteristics determinedby Spindle. It has not been cleared or approved by the Foodand Drug Administration.PATIENT WAS FASTINGPERFORMED BY: Vupen [address] [id number] BY: Tackle Grab6370 [facility] [id number] Albumin/Globulin [Mass ratio] 2.0 {ratio} Normal 1.2-2.2 [facility] Internal Medicine Work Phone: Comment on above: Test(s) 733396-GCB-L ; 524915-QJA-Y; 235759-UJB-J; 974424-Jbfjbzhxftvug; 928879-Cubzpfrpiyp, Total; 001615-SMM-Q (Total);357318-Btliz LDL-P; 640106-MUP Size; 481732-KK-MU Scorewas developed and its performance characteristics determinedby Spindle. It has not been cleared or approved by the Foodand Drug Administration.PATIENT WAS FASTINGPERFORMED BY: [employer] [id number] BY: [employer] SoftwareInspira Medical Center WoodburyNhlrqt2865 [facility] [id number] ALP [Catalytic activity/Vol] 66 [iU]/L Normal 39-117 [facility] Work Phone: Comment on above: Test(s) 507700-IMN-B ; 318517-FVY-B; 502573-YMO-R; 596558-Rhiefjnfbfrkq; 722586-Tkmaqmmtogx, Total; 751701-HAF-N (Total);439019-Vjmsb LDL-P; 313205-KKK Size; 595096-GN-GN Scorewas developed and its performance characteristics determinedby Spindle. It has not been cleared or approved by the Foodand Drug Administration.PATIENT WAS FASTINGPERFORMED BY: Vupen [address] [id number] BY: Zank70 [employer] - Smartphone RFIDWilson Medical Center [id number] ALP [Catalytic activity/Vol] 66 U/L Normal 39-117 [facility]; [facility] Work Phone: Comment on above: Test(s) 098484-NMY-S ; 463223-FFK-L; 895036-NUM-L; 007424-Gukawznfauuwd; 300694-Jblwbtfhtxk, Total; 177638-OTN-O (Total);925659-Uhbma LDL-P; 671560-PBV Size; 727787-WD-LI Scorewas developed and its performance characteristics determinedby Spindle. It has not been cleared or approved by the Foodand Drug Administration.PATIENT WAS FASTINGPERFORMED BY: Vupen [address] [id number] BY: Zank70 DobbsOzarks Medical Center [id number] ALT [Catalytic activity/Vol] 21 [iU]/L Normal 0-44 [facility] Work Phone: Comment on above: Test(s) 369319-WGS-G ; 885576-NKA-D; 179958-LUA-Q; 695679-Bqvilexclekhp; 886551-Etzhgjrmvof, Total; 386613-QPF-B (Total);594068-Duhhe LDL-P; 496293-JLW Size; 601031-CA-FJ Scorewas developed and its performance characteristics determinedby Spindle. It has not been cleared or approved by the Foodand Drug Administration.PATIENT WAS FASTINGPERFORMED BY: Accertify[address] [id number] BY: AccertifyInspira Medical [facility]buryLvsohx[facility]397 [facility] [id number] ALT [Catalytic activity/Vol] 21 U/L Normal 0-44 [facility]; [facility] Work Phone: Comment on above: Test(s) 498670-GSF-U ; 937098-CNM-R; 233722-VWI-P; 450372-Mrnomlkhsqbws; 476701-Indzikrkihu, Total; 707910-CGV-R (Total);719411-Beuir LDL-P; 132090-JCH Size; 962588-HE-SP Scorewas developed and its performance characteristics determinedby Spindle. It has not been cleared or approved by the Foodand Drug Administration.PATIENT WAS FASTINGPERFORMED BY: Spindle [address] [id number] BY: AccertifyInspira Medical Center WoodburyHrlszd2040 [facility] [id number] AST [Catalytic activity/Vol] 22 [iU]/L Normal 0-40 [facility] Internal Medicine Work Phone: Comment on above: Test(s) 132916-MXU-S ; 771533-LUO-K; 552714-UCX-K; 113754-Uqixdhwlkhdtf; 990753-Xupkmflmidv, Total; 859136-HDW-D (Total);460520-Crkvx LDL-P; 681794-MZB Size; 520000-FD-SD Scorewas developed and its performance characteristics determinedby Spindle. It has not been cleared or approved by the Foodand Drug Administration.PATIENT WAS FASTINGPERFORMED BY: Accertify[address] [id number] BY: AccertifyInspira Medical Center WoodburyEuyjvd5006 [facility] [id number] AST [Catalytic activity/Vol] 22 U/L Normal 0-40 [facility]; [facility] Work Phone: Comment on above: Test(s) 946763-KXX-S ; 888326-PIP-I; 455348-WQX-N; 820635-Mckizwycequgp; 129005-Ozezxiidtwn, Total; 579037-RRA-O (Total);451058-Cuztn LDL-P; 073489-RVV Size; 641490-ML-DC Scorewas developed and its performance characteristics determinedby Spindle. It has not been cleared or approved by the Foodand Drug Administration.PATIENT WAS FASTINGPERFORMED BY: Spindle [address] [id number] BY: AccertifyAdvanced Care Hospital of Southern New MexicoXlitxo9959 [facility] [id number] Bilirubin [Mass/Vol] 0.5 mg/dL Normal 0.0-1.2 [facility] Internal Medicine Work Phone: Comment on above: Test(s) 950099-SJG-F ; 376984-XQF-E; 132659-NMI-V; 830897-Oyrxkjcoijmnn; 524837-Wxxpcrdnaob, Total; 113928-NCF-O (Total);945791-Uczbr LDL-P; 636245-LRA Size; 602911-CS-MM Scorewas developed and its performance characteristics determinedby Spindle. It has not been cleared or approved by the Foodand Drug Administration.PATIENT WAS FASTINGPERFORMED BY: Spindle [address] [id number] BY: AccertifyInspira Medical Center WoodburyGmkiui8533 [facility] [id number] Calcium [Mass/Vol] 9.9 mg/dL Normal 8.6-10.2 [facility] Internal Medicine Work Phone: Comment on above: Test(s) 295136-SXA-U ; 436662-FOZ-K; 781660-IIA-E; 406724-Zgvtazwbweilb; 102503-Joiokndgboq, Total; 137998-EXS-C (Total);449853-Uerfj LDL-P; 731557-IJA Size; 126546-CC-WI Scorewas developed and its performance characteristics determinedby Spindle. It has not been cleared or approved by the Foodand Drug Administration.PATIENT WAS FASTINGPERFORMED BY: eFanston1447 [facility] [id number] BY: Tackle Grab6370 [facility] [id number] Chloride [Moles/Vol] 102 mmol/L Normal 96-106 [facility] Internal Medicine Work Phone: Comment on above: Test(s) 627224-UVG-Y ; 664608-YTS-B; 971050-WVJ-C; 178228-Dmjfbliogkpey; 877382-Xxcqksxhvwl, Total; 214095-HEH-N (Total);488154-Cyrmd LDL-P; 177911-KPI Size; 839515-JK-AV Scorewas developed and its performance characteristics determinedby Spindle. It has not been cleared or approved by the Foodand Drug Administration.PATIENT WAS FASTINGPERFORMED BY: eFans[address] [id number] BY: Tackle Grab6370 [facility] [id number] CO2 [Moles/Vol] 24 mmol/L Normal 20-29 [facility] Internal Medicine Work Phone: Comment on above: Test(s) 961489-PLO-S ; 735062-APU-I; 340720-THQ-L; 698890-Pvprbskakiuwq; 792701-Lpvlenarmdz, Total; 081979-QTK-M (Total);598804-Zzbgj LDL-P; 758846-MOD Size; 277697-DW-TW Scorewas developed and its performance characteristics determinedby Spindle. It has not been cleared or approved by the Foodand Drug Administration.PATIENT WAS FASTINGPERFORMED BY: Vupen [address] [id number] BY: Azoi Jhqvbx8620 [facility] [id number] Creatinine [Mass/Vol] 1.25 mg/dL Normal 0.76-1.27 [facility] Internal Medicine Work Phone: Comment on above: Test(s) 831641-GOH-G ; 747331-JFU-I; 954377-FSV-K; 008431-Zjozytrwahiuh; 651901-Qocuxthaszf, Total; 272171-ALA-H (Total);734599-Yxbil LDL-P; 248839-GTN Size; 786035-IO-KL Scorewas developed and its performance characteristics determinedby Spindle. It has not been cleared or approved by the Foodand Drug Administration.PATIENT WAS FASTINGPERFORMED BY: Spindle [address] [id number] BY: Spindle [address] [id number] GFR/1.73 sq M predicted among blacks CKD-EPI (S/P/Bld) [Vol rate/Area] 66 mL/min/1.73 Normal [facility] Work Phone: Comment on above: Test(s) 146911-LRH-K ; 570561-FUI-H; 144697-VHA-Z; 269694-Uawibspmtnwdt; 189126-Urrndobqpgp, Total; 949444-FPN-W (Total);877323-Tisug LDL-P; 833075-XTJ Size; 558460-HQ-VT Scorewas developed and its performance characteristics determinedby Spindle. It has not been cleared or approved by the Foodand Drug Administration.PATIENT WAS FASTINGPERFORMED BY: Spindle [address] [id number] BY: Spindle Wxayoe5064 [facility] [id number] GFR/1.73 sq M predicted among non-blacks CKD-EPI (S/P/Bld) [Vol rate/Area] 57 mL/min/1.73 Abnormal [facility] Work Phone: Comment on above: Test(s) 727161-YYV-P ; 609659-TNJ-M; 501381-CYW-W; 298601-Ugihrmceumstp; 755581-Aurzmslyaqa, Total; 090308-NFQ-G (Total);492062-Vrmyp LDL-P; 256582-PVZ Size; 890111-DY-YY Scorewas developed and its performance characteristics determinedby Spindle. It has not been cleared or approved by the Foodand Drug Administration.PATIENT WAS FASTINGPERFORMED BY: Vupen [address] [id number] BY: Accertify Yywsyd9013 [facility] [id number] Globulin (S) [Mass/Vol] 2.3 g/dL Normal 1.5-4.5 [facility] Internal Medicine Work Phone: Comment on above: Test(s) 009462-LRW-W ; 673546-WPE-F; 149152-YMR-F; 060689-Ydwjcljciequh; 365389-Iwcksujeliq, Total; 978191-GWY-G (Total);944996-Ipklt LDL-P; 205827-YSR Size; 100436-EZ-MA Scorewas developed and its performance characteristics determinedby Spindle. It has not been cleared or approved by the Foodand Drug Administration.PATIENT WAS FASTINGPERFORMED BY: Vupen [address] [id number] BY: Tackle Grab6370 [facility] [id number] Glucose [Mass/Vol] 96 mg/dL Normal 65-99 [facility] Internal Medicine Work Phone: Comment on above: Test(s) 863605-NQR-V ; 296428-OIM-L; 107125-FOV-G; 325181-Jnuekujaujacx; 496112-Eopeemsrthi, Total; 292574-EPI-N (Total);363671-Qxjtl LDL-P; 327795-MPT Size; 953039-RR-RM Scorewas developed and its performance characteristics determinedby Spindle. It has not been cleared or approved by the Foodand Drug Administration.PATIENT WAS FASTINGPERFORMED BY: Vupen [address] [id number] BY: Blue Ocean SoftwareInspira Medical Center WoodburyRoyiiu9670 [facility] [id number] Potassium [Moles/Vol] 4.7 mmol/L Normal 3.5-5.2 [facility] Internal Medicine Work Phone: Comment on above: Test(s) 059367-KRO-I ; 822967-QIY-W; 385173-MIR-X; 984590-Fqwfobpfyrikp; 141805-Lowrtzbqhzc, Total; 602358-ECK-I (Total);312012-Drznz LDL-P; 126430-UTY Size; 297074-MJ-PG Scorewas developed and its performance characteristics determinedby Spindle. It has not been cleared or approved by the Foodand Drug Administration.PATIENT WAS FASTINGPERFORMED BY: Vupen [address] [id number] BY: Spindle Hvgskf1911 [facility] [id number] Protein [Mass/Vol] 6.8 g/dL Normal 6.0-8.5 [facility] Internal Medicine Work Phone: Comment on above: Test(s) 413541-WLO-V ; 300364-RQW-Q; 779696-YQP-W; 455808-Wthidqddhwdnj; 760229-Byynvfrhtwy, Total; 031589-QTW-D (Total);926047-Vfsvp LDL-P; 037098-SEX Size; 393492-CS-VS Scorewas developed and its performance characteristics determinedby Spindle. It has not been cleared or approved by the Foodand Drug Administration.PATIENT WAS FASTINGPERFORMED BY: Spindle [address] [id number] BY: Azoi Hxjumh0402 [facility] [id number] Sodium [Moles/Vol] 140 mmol/L Normal 134-144 [facility] Internal Medicine Work Phone: Comment on above: Test(s) 251083-ATV-Q ; 910050-VBC-Y; 322186-CGU-R; 755825-Nmncxapjxbrag; 077680-Yixaronfisy, Total; 870257-CTR-N (Total);437048-Xsqtc LDL-P; 006800-STY Size; 296992-PJ-WW Scorewas developed and its performance characteristics determinedby Spindle. It has not been cleared or approved by the Foodand Drug Administration.PATIENT WAS FASTINGPERFORMED BY: eFans[address] [id number] BY: [employer] Anhhpb4481 wmblyAtrium Health Kannapolis [id number] Urea nitrogen [Mass/Vol] 22 mg/dL Normal 8-27 [facility] Work Phone: Comment on above: Test(s) 836088-PHT-K ; 050222-BGU-R; 172055-BRD-L; 600752-Toyocexhwiteb; 737439-Bonnxbwksae, Total; 156161-NUZ-R (Total);762716-Ilzff LDL-P; 274365-TRR Size; 150205-PM-QM Scorewas developed and its performance characteristics determinedby Spindle. It has not been cleared or approved by the Foodand Drug Administration.PATIENT WAS FASTINGPERFORMED BY: eFans[address] [id number] BY: Tackle Grab6370 [facility] [id number] Urea nitrogen/Creatinine [Mass ratio] 18 mg/mg Normal 10-24 [facility] Work Phone: Comment on above: Test(s) 857526-TWN-A ; 948959-KPV-X; 592292-RHJ-P; 779518-Hokglxjmgbypt; 529088-Iylidioujrg, Total; 023735-YLK-P (Total);214996-Xfndn LDL-P; 946476-LIQ Size; 422634-DP-TR Scorewas developed and its performance characteristics determinedby Spindle. It has not been cleared or approved by the Foodand Drug Administration.PATIENT WAS FASTINGPERFORMED BY: Vupen [address] [id number] BY: Zank70 [facility] [id number] MICROALBUMINOrdered By: Syst em Pearl Glue Operator on 08-11-2019 Albumin DL <= 20 mg/L (U) [Mass/Vol] 28.3 ug/mL Normal [facility] Work Phone: Comment on above: Test(s) 450901-GXI-V ; 743864-LSC-F; 384189-SNG-V; 970448-Gfkiswfkvzriu; 568750-Zsruximwics, Total; 283146-PYV-D (Total);343840-Swsyu LDL-P; 507737-TBK Size; 523710-RS-QG Scorewas developed and its performance characteristics determinedby Spindle. It has not been cleared or approved by the Foodand Drug Administration.PATIENT WAS FASTINGPERFORMED BY: Vupen [address] [id number] BY: Azoi Aliyyq5339 [facility] [id number] Albumin/Creatinine (U) [Mass ratio] 19 {mg/g_creat} Normal 0-29 [facility] Work Phone: Comment on above: Normal: 0 - 29 Moder ately increased: 30 - 300 Severely increased: >300 Please note reference interval change Test(s) 236464-BHW-M ; 152267-UTM-J; 856284-VOM-S; 184541-Gowxxrgmaitbb; 105139-Xnihqarozgq, Total; 682860-YPA-Y (Total);754970-Bqips LDL-P; 455999-JFM Size; 421543-BA-TR Scorewas developed and its performance characteristics determinedby Spindle. It has not been cleared or approved by the FoodCureLauncher Drug Administration.PATIENT WAS FASTINGPERFORMED BY: Vupen [address] [id number] BY: Azoi Sxgvkj6512 [facility] [id number] Creatinine (U) [Mass/Vol] 151.9 mg/dL Normal [facility] Work Phone: Comment on above: Test(s) 411361-CFT-J ; 099585-BHF-C; 749630-QCN-P; 403519-Kbvqnfuotvgkq; 777506-Bodebaqhpgd, Total; 502556-KMF-I (Total);195350-Idebi LDL-P; 991960-ICG Size; 688008-KQ-JO Scorewas developed and its performance characteristics determinedby Spindle. It has not been cleared or approved by the Foodand Drug Administration.PATIENT WAS FASTINGPERFORMED BY: Vupen [address] [id number] BY: AccertifyAdvanced Care Hospital of Southern New MexicoSscdcn9057 [facility] [id number] NMR Profile (57383)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-11-2019 Cholesterol [Mass/Vol] 189 mg/dL Normal 100-199 [facility] Internal Medicine Work Phone: Comment on above: Test(s) 418702-JUL-C ; 405663-UUL-B; 584952-MGA-I; 512692-Tspbtaljxtqkp; 348410-Grluswegogh, Total; 344148-XON-Y (Total);044483-Mckdn LDL-P; 483175-RFE Size; 060920-SN-FX Scorewas developed and its performance characteristics determinedby Spindle. It has not been cleared or approved by the Foodand Drug Administration.PATIENT WAS FASTINGPERFORMED BY: Vupen [address] [id number] BY: [employer]70 [facility] [id number] Lipoprotein.alpha [Moles/Vol] 33.4 umol/L Normal [facility] Internal Medicine Work Phone: Comment on above: Test(s) 259079-BUL-P ; 176710-WZC-A; 322075-XPC-S; 060839-Pcfwpslxvredl; 061433-Fnoxhpowyux, Total; 572146-IIS-N (Total);375111-Fygss LDL-P; 081538-XHM Size; 736444-HV-IX Scorewas developed and its performance characteristics determinedby Spindle. It has not been cleared or approved by the Foodand Drug Administration.PATIENT WAS FASTINGPERFORMED BY: Vupen [address] [id number] BY: Spindle Ayimui5510 [facility] [id number] Lipoprotein.beta.subpar ticle [Entitic length] 21.0 nm Normal [facility] Work Phone: Comment on above: INTERPRETATIVE INFORMATION PARTICLE CONCENTRATION AND SIZE <--Lower CVD Risk Higher CVD Risk--> LDL AND HDL PARTICLES Percentile in Reference Population HDL-P (total) High 75th 50th 25th Low >34.9 34.9 30.5 26.7 <26.7 . Small LDL-P Low 25th 50th 75th High <117 117 527 839 >839 . LDL Size <-Large (Pattern A)-> <-Small (Pattern B)-> 23.0 20.6 20.5 19.0 Smal l LDL-P and LDL Size are associated with CVD risk, but not afterLDL-P is taken into account. Test(s) 067670-ENU-T ; 049224-ZET-N; 461341-ZGA-C; 030330-Aoeszdsuasqwo; 331445-Lhwsqifnguf, Total; 619874-KAT-N (Total);691580-Gansb LDL-P; 813346-DJA Size; 200157-NZ-VK Scorewas developed and its performance characteristics determinedby Spindle. It has not been cleared or approved by the Foodand Drug Administration.PATIENT WAS FASTINGPERFORMED BY: LabStayNTouch [address] [id number] BY: LabGrey Orange RoboticsInspira Medical Center WoodburySjysac2504 [facility] [id number] Lipoprotein.beta.subpar ticle [Moles/Vol] 1428 nmol/L Abnormal [facility] Work Phone: Comment on above: Low < 1000 Moderate 1000 - 1299 Borderline-High 1300 - 1599 High 1600 - 2000 Very High > 2000 Test(s) 167250-QWG-M ; 582459-IUC-J; 161452-QLQ-X; 469398-Iklhybnuiwuhh; 113463-Fwtxzkkkpet, Total; 241277-AAY-S (Total);926519-Ydjew LDL-P; 983041-YFL Size; 165528-RT-RW Scorewas developed and its performance characteristics determinedby Spindle. It has not been cleared or approved by the Foodand Drug Administration.PATIENT WAS FASTINGPERFORMED BY: Vupen [address] [id number] BY: Zank70 [facility] [id number] Lipoprotein.beta.subpar ticle.small [Moles/Vol] 427 nmol/L Normal Comprehe nsive Internal Medicine Work Phone: Comment on above: Test(s) 048819-TYH-I ; 242623-DWG-L; 060941-DCE-R; 682816-Nwxoloxojlkeh; 823039-Xnoylsejgnk, Total; 743910-SVS-N (Total);452285-Zarej LDL-P; 888262-LKM Size; 244789-NX-XG Scorewas developed and its performance characteristics determinedby Spindle. It has not been cleared or approved by the Foodand Drug Administration.PATIENT WAS FASTINGPERFORMED BY: Vupen [address] [id number] BY: Azoi Mtacul1440 [facility] [id number] Triglyceride [Mass/Vol] 74 mg/dL Normal 0-149 C omprehensive Internal Medicine Work Phone: Comment on above: Test(s) 153435-ALG-D ; 892101-XHR-J; 429284-ZOB-Z; 011084-Lgyieazjmpigb; 326410-Lhttnjzmjwk, Total; 332515-FNT-A (Total);304739-Wbcgt LDL-P; 561904-DIY Size; 946145-BG-VM Scorewas developed and its performance characteristics determinedby Spindle. It has not been cleared or approved by the Foodand Drug Administration.PATIENT WAS FASTINGPERFORMED BY: [employer] Voyvodiagb[address] [id number] BY: Accertify Ezjyhu0433 [place] [facility] [id number] NMR Profile (35087) 59 mg/dL Normal [facility] Internal Medicine Work Phone: Comment on above: Test(s) 939354-JBI-O ; 651458-YPE-Y; 134674-OCN-F; 342247-Sepannbqecpsk; 143210-Ycqhobtnxdf, Total; 807140-EEA-X (Total);671143-Vwyij LDL-P; 877958-CPA Size; 676956-KB-FF Scorewas developed and its performance characteristics determinedby Spindle. It has not been cleared or approved by the FoodCureLauncher Drug Administration.PATIENT WAS FASTINGPERFORMED BY: eFans[address] [id number] BY: [employer] Nuthsw0194 [facility] [id number] NMR Profile (69187) 115 mg/dL Abnormal 0-99 [facility] Internal Medicine Work Phone: Comment on above: . Optimal < 100 Abov e optimal 100 - 129 Borderline 130 - 159 High 160 - 189 Very high > 189 .LDL-C is inaccurate if patient is non-fasting. Test(s) 301301-ZXJ-J ; 658073-KCL-C; 503225-CIE-V; 926063-Emdtntbywsgqs; 534369-Diryjrviveq, Total; 953085-VEW-H (Total);871770-Eegnc LDL-P; 848196-AMB Size; 116726-MA-KB Scorewas developed and its performance characteristics determinedby Spindle. It has not been cleared or approved by the Foodand Drug Administration.PATIENT WAS FASTINGPERFORMED BY: Accertify[address] [id number] BY: AccertifyInspira Medical Center WoodburyHijptb9887 [facility] [id number] NMR Profile (60132) 74 mg/dL Normal 0-149 Compr ehensive Internal Medicine; [facility] Work Phone: NMR Profile (15930) 189 mg/dL Normal 100-199 [facility] Internal Medicine; [facility] Work Phone: TSH (13750)Ordered By: Ruba m Pearl Glue Operator on 08-11-2019 TSH Qn 5.420 {uIU/mL} Abnormal 0.450-4.50 0 [facility] Work Phone: Comment on above: Test(s) 701815-IZV-J ; 963106-EEQ-O; 714307-RYQ-F; 780872-Kzsffliwgtddt; 998867-Feqwxprjruk, Total; 720713-GWR-V (Total);184312-Osqpa LDL-P; 640477-OTT Size; 198413-TL-WL Scorewas developed and its performance characteristics determinedby Spindle. It has not been cleared or approved by the Foodand Drug Administration.PATIENT WAS FASTINGPERFORMED BY: [employer] [facility] [id number] BY: Zank70 [address] [id number] URINALYSIS, W/ MICRO (98113) Ordered By: Costing Manager on 08-11-2019 Appearance (U) Clear Normal Comprehens cl Internal Medicine Work Phone: Comment on above: Test(s) 786008-GKF-B ; 178762-XXQ-B; 619524-MKM-E; 605297-Ypsvdcmuupfif; 825767-Qzuckezsgnw, Total; 357237-SKU-C (Total);487791-Atrne LDL-P; 275856-TBB Size; 069340-HR-IL Scorewas developed and its performance characteristics determinedby Spindle. It has not been cleared or approved by the Foodand Drug Administration.PATIENT WAS FASTINGPERFORMED BY: [employer] [facility] [id number] BY: Zank70 [place] [id number] Bilirubin Ql (U) Negative Normal Comprehe nsive Internal Medicine Work Phone: Comment on above: Test(s) 446357-ANF-X ; 144263-MQO-W; 508522-UJL-S; 399955-Nxnfliyzobpxp; 358883-Usjxeilbfqa, Total; 461889-VVI-U (Total);123817-Hmwrg LDL-P; 328682-PRJ Size; 676145-BN-JJ Scorewas developed and its performance characteristics determinedby Spindle. It has not been cleared or approved by the Foodand Drug Administration.PATIENT WAS FASTINGPERFORMED BY: eFans[address] [id number] BY: Zank70 [facility] [id number] Bilirubin Ql (U) Negative Normal Comprehe nsive Internal Medicine; [facility] Work Phone: Comment on above: Test(s) 317200-HHM-H ; 381890-FCO-H; 566382-DVX-M; 263762-Jchkeudogbxdt; 113221-Whjeooikcry, Total; 844097-PRS-F (Total);021559-Ylblg LDL-P; 494052-BMP Size; 131288-NP-OR Scorewas developed and its performance characteristics determinedby Spindle. It has not been cleared or approved by the Foodand Drug Administration.PATIENT WAS FASTINGPERFORMED BY: eFans[address] [id number] BY: Tackle Grab6370 [facility]Mer[facility], formerly [facility] Medical CenterRECUPYLAtrium Health Kannapolis [id number] Color (U) Yellow Normal [facility] Work Phone: Comment on above: Test(s) 771832-FTP-R ; 840679-TZO-N; 773979-LOP-O; 329990-Ndjnwiboogtzo; 258221-Isbndpwtfxj, Total; 086214-GIC-Z (Total);938493-Yydlc LDL-P; 709175-LKZ Size; 331216-UD-LS Scorewas developed and its performance characteristics determinedby Spindle. It has not been cleared or approved by the Foodand Drug Administration.PATIENT WAS FASTINGPERFORMED BY: eFans[address] [id number] BY: AccertifyInspira Medical Center WoodburyAzslyx5078 [facility] [id number] Glucose Ql (U) Negative Normal Comprehens cl Internal Medicine Work Phone: Comment on above: Test(s) 726855-KKB-S ; 193274-TCT-J; 339027-BYR-E; 043957-Thcnbgnxrzfxk; 863172-Rdfaxtwjuhu, Total; 926242-TSL-S (Total);769945-Kztmc LDL-P; 961103-SUF Size; 723980-MU-GL Scorewas developed and its performance characteristics determinedby Spindle. It has not been cleared or approved by the Foodand Drug Administration.PATIENT WAS FASTINGPERFORMED BY: Vupen [address] [id number] BY: Spindle Elznsk5108 [facility] [id number] Glucose Ql (U) Negative Normal [facility]prehens [facility]; [facility] Work Phone: Comment on above: Test(s) 971472-PFW-V ; 487776-AJB-H; 466363-GFM-J; 973130-Ojdccsatxibbv; 369559-Rmpevmvvxny, Total; 223418-GBQ-K (Total);321885-Lmoet LDL-P; 366679-NCU Size; 616788-AH-GM Scorewas developed and its performance characteristics determinedby Spindle. It has not been cleared or approved by the Foodand Drug Administration.PATIENT WAS FASTINGPERFORMED BY: Accertify[address] [id number] BY: AccertifyInspira Medical Center WoodburyOzqtmx3041 [facility] [id number] Hemoglobin Ql (U) Negative Normal Compreh ensive Internal Medicine Work Phone: Comment on above: Test(s) 815113-UZR-S ; 361519-CTW-G; 396529-PNC-E; 431275-Ajplaogrnyxde; 938017-Vmnfrxiawwc, Total; 135484-OBM-G (Total);211213-Rxmqv LDL-P; 450358-FXK Size; 410164-KB-PR Scorewas developed and its performance characteristics determinedby Spindle. It has not been cleared or approved by the Foodand Drug Administration.PATIENT WAS FASTINGPERFORMED BY: [employer] Group[address] [id number] BY: Accertify Naucnw0180 [facility] [id number] Hemoglobin Ql (U) Negative Normal Compreh ensive Internal Medicine; [facility] Work Phone: Comment on above: Test(s) 633703-GZY-E ; 595495-YQV-P; 288498-HDK-K; 502258-Pjupowxjrwgwd; 161381-Taldbksyofl, Total; 326828-ZMG-N (Total);317465-Csiwn LDL-P; 227826-FFP Size; 634676-NO-PL Scorewas developed and its performance characteristics determinedby Spindle. It has not been cleared or approved by the Foodand Drug Administration.PATIENT WAS FASTINGPERFORMED BY: Vupen [address] [id number] BY: Zank70 [employer] - Smartphone RFIDWilson Medical Center [id number] Ketones Ql (U) Negative Normal Comprehens cl Internal Medicine Work Phone: Comment on above: Test(s) 736540-ITZ-N ; 916313-PGA-C; 866847-FVK-L; 709264-Amrshvocpxpcn; 870100-Twwtikdadox, Total; 944495-DZV-A (Total);919895-Yarwe LDL-P; 087144-OYZ Size; 806414-CS-FW Scorewas developed and its performance characteristics determinedby [employer]. It has not been cleared or approved by the Foodand Drug Administration.PATIENT WAS FASTINGPERFORMED BY: Vupen [address] [id number] BY: Azoi Xjgsdz0003 [facility] [id number] Ketones Ql (U) Negative Normal Comprehens cl Internal Medicine; [facility] Work Phone: Comment on above: Test(s) 082263-NKK-U ; 581165-KFE-B; 936610-CQV-B; 354773-Xhsidgmimpbnc; 511046-Rtqnwnvnmki, Total; 331010-AIK-P (Total);136901-Pjxuq LDL-P; 981813-FQZ Size; 500211-TM-GR Scorewas developed and its performance characteristics determinedby [employer]. It has not been cleared or approved by the Foodand Drug Administration.PATIENT WAS FASTINGPERFORMED BY: Vupen [address] [id number] BY: [facility] [id number] Leukocyte esterase Test strip Ql (U) Negative Normal [facility] Work Phone: Comment on above: Test(s) 205205-BFN-T ; 336078-FDQ-R; 515831-FFY-C; 932104-Fzbzcefzephcd; 067165-Jrwcegtzptr, Total; 939362-UHY-T (Total);495124-Gbrls LDL-P; 026019-BHW Size; 718410-XT-KL Scorewas developed and its performance characteristics determinedby [employer]. It has not been cleared or approved by the Foodand Drug Administration.PATIENT WAS FASTINGPERFORMED BY: Vupen [address] [id number] BY: Zank70 [facility] [id number] Leukocyte esterase Test strip Ql (U) Negative Normal [facility]; [facility] Work Phone: Comment on above: Test(s) 078491-ZCX-H ; 892041-MIO-K; 778955-LXV-J; 071701-Rxlqxhvvqopqs; 782527-Rzmnzjybzjn, Total; 525869-RGL-C (Total);369096-Oswst LDL-P; 459795-MSF Size; 661160-JZ-RL Scorewas developed and its performance characteristics determinedby [employer]. It has not been cleared or approved by the Foodand Drug Administration.PATIENT WAS FASTINGPERFORMED BY: BN LabCo[address] [id number] BY: [employer] Tksiex7981 [facility] [id number] Microscopic observation LM Nom (Urine sed) See below: Normal [facility] Work Phone: Comment on above: Microscopic was kiana cated and was performed. Test(s) 860960-JCT-R ; 415676-MVV-P; 673642-EJA-R; 081527-Zwqdsbqlcmthl; 386527-Nmarbtdykgt, Total; 773248-ALJ-X (Total);319616-Scltn LDL-P; 349573-GEI Size; 520640-HT-AJ Scorewas developed and its performance characteristics determinedby [employer]. It has not been cleared or approved by the Foodand Drug Administration.PATIENT WAS FASTINGPERFORMED BY: Vupen [address] [id number] BY: Tackle Grab6370 [facility] [id number] Microscopic observation LM Nom (Urine sed) MICRON Normal [facility] Work Phone: Comment on above: Microscopic follows if indicated. Test(s) 014098-WAQ-K ; 469545-ZDG-Z; 678736-JVU-B; 367188-Pzqdqikglhirq; 770345-Mmpszrogdao, Total; 910249-HME-C (Total);592586-Eunjk LDL-P; 482031-LHS Size; 006819-NI-OI Scorewas developed and its performance characteristics determinedby [employer]. It has not been cleared or approved by the Foodand Drug Administration.PATIENT WAS FASTINGPERFORMED BY: Vupen [address] [id number] BY: [employer] Zppfyi7322 [facility] [id number] Nitrite Ql (U) Negative Normal Comprehens cl Internal Medicine Work Phone: Comment on above: Test(s) 160554-SCU-U ; 461867-VSQ-J; 368476-UDP-C; 182939-Aalvafwkgfemh; 557724-Jngadalapfq, Total; 950846-YKJ-C (Total);594576-Bdxki LDL-P; 431556-OUJ Size; 219821-EE-AH Scorewas developed and its performance characteristics determinedby [employer]. It has not been cleared or approved by the Foodand Drug Administration.PATIENT WAS FASTINGPERFORMED BY: Vupen [address] [id number] BY: [employer] Evfajb2910 [facility] [id number] Nitrite Ql (U) Negative Normal Comprehens cl Internal Medicine; [facility] Work Phone: Comment on above: Test(s) 126999-BHO-V ; 557298-JNY-Q; 787231-UKR-B; 624923-Avmrefdqbpgwk; 687306-Gjaiedrkflu, Total; 866965-TLX-T (Total);132332-Nbghw LDL-P; 479424-COD Size; 855398-FJ-YI Scorewas developed and its performance characteristics determinedby [employer]. It has not been cleared or approved by the Foodand Drug Administration.PATIENT WAS FASTINGPERFORMED BY: Vupen [address] [id number] BY: Tackle Grab6370 [facility] [id number] pH (U) 6.5 [pH] Normal 5.0-7.5 [facility] Work Phone: Comment on above: Test(s) 626252-GDN-V ; 799162-HAY-N; 315855-JOJ-R; 572972-Ouaceudhcukiu; 803698-Cerakbpudgs, Total; 760285-NQO-I (Total);169219-Olixa LDL-P; 979210-TQJ Size; 393449-BC-ZS Scorewas developed and its performance characteristics determinedby [employer]. It has not been cleared or approved by the Foodand Drug Administration.PATIENT WAS FASTINGPERFORMED BY: Vupen [address] [id number] BY: 6Senselin6370 [facility] [id number] Protein Ql (U) Trace Normal Comprehens [facility] Internal Medicine Work Phone: Comment on above: Test(s) 926405-ARY-Y ; 716630-ATK-Z; 799721-GLC-O; 608003-Okzmynptoydmq; 577488-Uywffmmtrct, Total; 274901-DAT-T (Total);699261-Xuktf LDL-P; 221416-JDF Size; 948329-JO-DS Scorewas developed and its performance characteristics determinedby [employer]. It has not been cleared or approved by the Foodand Drug Administration.PATIENT WAS FASTINGPERFORMED BY: eFans[address] [id number] BY: Azoi Tiwbbq9207 [facility] [id number] Specific gravity (U) [Rel density] 1.020 1 Normal 1.005-1.03 0 [facility] Internal Medicine Work Phone: Comment on above: Test(s) 010981-UYR-F ; 290899-CRP-J; 438270-KLP-B; 768003-Kgrizscqmyzdx; 335088-Kmnzytfavap, Total; 949243-ZKR-M (Total);916603-Xdsft LDL-P; 959099-NTB Size; 707424-XH-VZ Scorewas developed and its performance characteristics determinedby [employer]. It has not been cleared or approved by the Foodand Drug Administration.PATIENT WAS FASTINGPERFORMED BY: eFans[address] [id number] BY: Azoi Pwwprh1192 [facility] [id number] Urobilinogen (U) [Mass/Vol] 0.2 mg/dL Normal 0.2-1.0 [facility]; [facility] Work Phone: Comment on above: Test(s) 763357-KLO-K ; 379318-JSM-P; 457248-JXR-O; 303672-Vvhrpxrxnhuym; 086744-Pymvkdjjdgt, Total; 181224-MYY-D (Total);815532-Iijni LDL-P; 671398-PSB Size; 258006-ZQ-MF Scorewas developed and its performance characteristics determinedby [employer]. It has not been cleared or approved by the Foodand Drug Administration.PATIENT WAS FASTINGPERFORMED BY: Accertify[address] [id number] BY: [employer] Lxpbot8358 [address] SeemageDublin [place] [id number] Urobilinogen Test strip (U) [Mass/Vol] 0.2 mg/dL Normal 0.2-1.0 [facility] Internal Medicine Work Phone: Comment on above: Test(s) 399335-TAN-U ; 791203-JNM-M; 750515-HAV-D; 511977-Tdbuykpmkxjtf; 118833-Lznnueomnyw, Total; 198922-HOH-J (Total);088273-Qurin LDL-P; 131456-JTJ Size; 382562-KN-WU Scorewas developed and its performance characteristics determinedby [employer]. It has not been cleared or approved by the Foodand Drug Administration.PATIENT WAS FASTINGPERFORMED BY: [employer] [id number] BY: Zank[address] Eventmag.[place] [id number] HEPATIC FUNCTION PANEL (8007 6)Ordered By: Costing Manager on 02-06-2019 Albumin [Mass/Vol] 4.3 g/dL Normal 3.5-4.8 [facility] Internal Medicine Work Phone: Comment on above: PATIENT WAS FASTINGP ERFORMED BY: Azoi Nsmhdu4712 [address] SeemageDublin [place] [id number] ALP [Catalytic activity/Vol] 72 [iU]/L Normal 39-117 [facility] Internal Medicine Work Phone: Comment on above: PATIENT WAS FASTINGP ERFORMED BY: Azoi Iyjmuz0750 [address] SeemageDublin [place] [id number] ALP [Catalytic activity/Vol] 72 U/L Normal 39-117 [facility]; [facility] Work Phone: Comment on above: PATIENT WAS FASTINGP ERFORMED BY: LETICIA [facility] Ebqnst5728 Dobbs RoadDublin [place] [id number] ALT [Catalytic activity/Vol] 23 [iU]/L Normal 0-44 [facility] Work Phone: Comment on above: PATIENT WAS FASTINGP ERFORMED BY: LETICIA [facility] Gjqbpo1166 Dobbs RoadDublin [place] [id number] ALT [Catalytic activity/Vol] 23 U/L Normal 0-44 [facility]; [facility] Work Phone: Comment on above: PATIENT WAS FASTINGP ERFORMED BY: LETICIA [facility] Lfeklz5028 Dobbs RoadDublin [place] [id number] AST [Catalytic activity/Vol] 23 [iU]/L Normal 0-40 [facility] Work Phone: Comment on above: PATIENT WAS FASTINGP ERFORMED BY: LETICIA LabCosandra CastilloHyclva6728 Dobbs RoadDublin [place] [id number] AST [Catalytic activity/Vol] 23 U/L Normal 0-40 [facility]; [facility] Internal Medicine Work Phone: Comment on above: PATIENT WAS FASTINGP ERFORMED BY: LETICIA LabCosandra Hyobbq0363 Dobbs RoadDublin [place] [id number] Bilirubin [Mass/Vol] 0.3 mg/dL Normal 0.0-1.2 [facility] Internal Medicine Work Phone: Comment on above: PATIENT WAS FASTINGP ERFORMED BY: LETICIA [facility] Tigwpf7372 Dobbs RoadDublin [place] [id number] Bilirubin.direct [Mass/Vol] 0.10 mg/dL Normal 0.00-0.40 [facility] Work Phone: Comment on above: PATIENT WAS FASTINGP ERFORMED BY: LETICIA [facility] Pgmqfa7692 Dobbs RoadDublin [place] [id number] Protein [Mass/Vol] 6.5 g/dL Normal 6.0-8.5 [facility] Internal Medicine Work Phone: Comment on above: PATIENT WAS FASTINGP ERFORMED BY: LETICIA [facility] Etuhdh3749 Dobbs RoadDublin [place] [id number] Metabolic Panel, Basic (8004 8)Ordered By: Costing Manager on 02-06-2019 Calcium [Mass/Vol] 9.7 mg/dL Normal 8.6-10.2 [facility] Internal Medicine Work Phone: Comment on above: PATIENT WAS FASTINGP ERFORMED BY: CB [facility] Iixgvk9175 Dobbs RoadDublin [place] [id number]; fu 02-09-19 Chloride [Moles/Vol] 105 mmol/L Normal 96-106 [facility] Work Phone: Comment on above: PATIENT WAS FASTINGP ERFORMED BY: CB [facility] Yfeazs5885 Dobbs RoadDublin [place] [id number]; fu 02-09-19 CO2 [Moles/Vol] 22 mmol/L Normal 20-29 [facility] Internal Medicine Work Phone: Comment on above: PATIENT WAS FASTINGP ERFORMED BY: CB [facility] Otzxjp9487 Dobbs Roadblin [place] [id number]; fu 02-09-19 Creatinine [Mass/Vol] 1.12 mg/dL Normal 0.76-1.27 [facility] Internal Medicine Work Phone: Comment on above: PATIENT WAS FASTINGP ERFORMED BY: CB [facility] Dzxtiy5685 Dobbs RoadEcu Health Duplin Hospitalin [place] [id number]; fu 02-09-19 GFR/1.73 sq M predicted among blacks CKD-EPI (S/P/Bld) [Vol rate/Area] 76 mL/min/1.73 Normal [facility] Work Phone: Comment on above: PATIENT WAS FASTINGP ERFORMED BY: CB [facility] Pxdggw5529 Dobbs RoadDublin [place] [id number]; fu 02-09-19 GFR/1.73 sq M predicted among non-blacks CKD-EPI (S/P/Bld) [Vol rate/Area] 66 mL/min/1.73 Normal [facility] Work Phone: Comment on above: PATIENT WAS FASTINGP ERFORMED BY: CB [facility] Fyyrkt9197 [address] RoadDublin [place] [id number]; fu 02-09-19 Glucose [Mass/Vol] 94 mg/dL Normal 65-99 [facility] Internal Medicine Work Phone: Comment on above: PATIENT WAS FASTINGP ERFORMED BY: LabCo Ynlcgj7324 Dobbs RoadDublin [place] [id number]; fu 02-09-19 Potassium [Moles/Vol] 4.6 mmol/L Normal 3.5-5.2 [facility] Internal Medicine Work Phone: Comment on above: PATIENT WAS FASTINGP ERFORMED BY: [facility] Jfmigb1255 Dobbs RoadDublin [place] [id number]; fu 02-09-19 Sodium [Moles/Vol] 143 mmol/L Normal 134-144 [facility] Internal Medicine Work Phone: Comment on above: PATIENT WAS FASTINGP ERFORMED BY: LabSaint [facility] Boxiru4206 Dob[address] RoadDublin [place] [id number]; fu 02-09-19 Urea nitrogen [Mass/Vol] 29 mg/dL Abnormal 8-27 [facility] Work Phone: Comment on above: PATIENT WAS FASTINGP ERFORMED BY: LabSaint [facility] Lxtuuk1463 Dobbs RoadDublin [place] [id number]; fu 02-09-19 Urea nitrogen/Creatinine [Mass ratio] 26 mg/mg Abnormal 10-24 [facility] Work Phone: Comment on above: PATIENT WAS FASTINGP ERFORMED BY: LabCo Ihsfre4663 [address] RoadDublin [place] [id number]; fu 02-09-19 DANIKA (ANTINUCLEAR ANTIBODY) ( 98311)Ordered By: Costing Manager on 10-12-2018 Nuclear Ab Ql (S) Negative Normal [facility] Work Phone: Comment on above: PATIENT NOT FASTINGP ERFORMED BY: 2Q LabCommunity Medical Centerton IDA9232 [facility] [id number] BY: LabSaint [facility] Ujnuok6779 [address] RoadDublin [place] [id number] Nuclear Ab Ql (S) Negative Normal Compreh ensive Internal Medicine; [facility] Work Phone: Comment on above: PATIENT NOT FASTINGP ERFORMED BY: [address] 919980 [facility] [id number] BY: [facility]6370 [facility] [id number] HLA-B27 ANTIGEN (89552)Order ed By: Costing Manager on 10-12-2018 HLA-B27 MARIEL+probe Ql (Bld/Tiss) Negative Normal [facility] Work Phone: Comment on above: HLA-B*27 IhifgrypH80 allele interpretation for all loci based on IMGT/HLAdatabase version 3.35This test was developed and its performance characteristicsdetermined by [employer]. It has not been cleared or approvedby the Food and Drug Administration.HLA Lab CLIA ID Number [id number] .This test was performed using PCR (Polymerase Chain Reaction)/SSOP(Sequence Specific Oligonucleotide Probes) technique. SBT (SequenceBased Typing) and/or SSP (Sequence Specific Primers) may be used assupplemental methods when necessary. Please contact HLA CustomerService at if you have any questions. . Director of HLA Laboratory Dr Christiano Anders, PhD PATIENT NOT FASTINGP ERFORMED BY: [address] 919980 [facility] [id number] BY: [facility]6370 [facility] [id number] HLA-B27 MARIEL+probe Ql (Bld/Tiss) Negative Normal [facility]; [facility] Work Phone: Comment on above: HLA-B*27 IlhtxrroG92 allele interpretation for all loci based on IMGT/HLAdatabase version 3.35This test was developed and its performance characteristicsdetermined by [employer]. It has not been cleared or approvedby the Food and Drug Administration.[facility] CLIA ID Number [id number] .This test was performed using PCR (Polymerase Chain Reaction)/SSOP(Sequence Specific Oligonucleotide Probes) technique. SBT (SequenceBased Typing) and/or SSP (Sequence Specific Primers) may be used assupplemental methods when necessary. Please contact HLA CustomerService at if you have any questions. . Director of HLA Laboratory Dr Christiano Anders, PhD PATIENT NOT FASTINGP ERFORMED BY: 2Q [facility]ertifySt. [facility] QBR2737 [facility] [id number] BY: AccertifyInspira Medical Center WoodburyZyhuag4116 [facility] [id number] PSA (PROSTATE SPECIFIC ANTIG EN) (V76.44)Ordered By: Costing Manager on 10-10-2018 Prostate specific Ag [Mass/Vol] 1.8 ng/mL Normal 0.0-4.0 [facility] Work Phone: Comment on above: Justen ECLIA methodol ogy. .According to the [place] [employer], Serum PSA shoulddecrease and remain at undetectable levels after radicalprostatectomy. The AUA defines biochemical recurrence as an initialPSA value 0.2 ng/mL or greater followed by a subsequent confirmatoryPSA value 0.2 ng/mL or greater.Values obtained with different assay methods or kits cannot be usedinterchangeably. Results cannot be interpreted as absolute evidenceof the presence or absence of malignant disease. PATIENT NOT FASTINGP ERFORMED BY: AccertifyInspira Medical Center WoodburyYmzgau3763 [facility] [id number] CALCIFEDIOL (38117)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-03-2018 25-Hydroxyvitamin D2+25-Hydroxyvitamin D3 mass conc 54.3 ng/mL Normal 30.0-100.0 [facility] Work Phone: Comment on above: Vitamin D deficiency has been defined by the [place] ofMedicine and an Endocrine Society practice guideline as alevel of serum 25-OH vitamin D less than 20 ng/mL (1,2).The Endocrine Society went on to further define vitamin Dinsufficiency as a level between 21 and 29 ng/mL (2).1. IOM ([place] of Medicine). 2010. Dietary reference intakes for calcium and D. [place]: The National Academies Press.2. Claudio MF, [place], Leonid RANDOLPH, et al. Evaluation, treatment, and prevention of vitamin D deficiency: an Endocrine Society clinical practice guideline. JCEM. 2010; 96(7):1911-30. PATIENT WAS FASTINGP ERFORMED BY: [address] [id number] BY: [facility]6370 [facility] [id number] CBC WITH MANUAL DIFF (24753) Ordered By: Costing Manager on 08-03-2018 Basophils #/vol (Bld) 0.0 {x10E3/uL} Normal 0.0-0.2 [facility] Work Phone: Comment on above: PATIENT WAS FASTINGP ERFORMED BY: [address] [id number] BY: [place] [id number] [facility] [id number] Basophils (Bld) [#/Vol] 0.0 10*3/uL Normal 0.0-0.2 [facility]; [facility] Work Phone: Comment on above: PATIENT WAS FASTINGP ERFORMED BY: [address] [id number] BY: [place] [id number] [facility] [id number] Basophils/100 WBC (Bld) 1 % Normal C omprehensive Internal Medicine Work Phone: Comment on above: PATIENT WAS FASTINGP ERFORMED BY: [address] [id number] BY: [place] [id number] [facility] [id number] Eosinophils #/vol (Bld) 0.2 {x10E3/uL} Normal 0.0-0.4 [facility] Work Phone: Comment on above: PATIENT WAS FASTINGP ERFORMED BY: [address] [id number] BY: LabHills [facility] Hospital6[address] [facility] [id number] Eosinophils (Bld) [#/Vol] 0.2 10*3/uL Normal 0.0-0.4 [facility]; [facility] Work Phone: Comment on above: PATIENT WAS FASTINGP ERFORMED BY: Accertify[address] [id number] BY: LabCo Iogxkx0764 Dobbs RoadEcu Health Duplin Hospitalin [place] [id number] Eosinophils/100 WBC (Bld) 3 % Normal [facility] Work Phone: Comment on above: PATIENT WAS FASTINGP ERFORMED BY: Accertify[address] [id number] BY: LabCoInspira Medical Center WoodburyWagjyo[address] [facility] [id number] Erythrocyte distribution width Ratio (RBC) 14.0 % Normal 12.3-15.4 [facility] Work Phone: Comment on above: PATIENT WAS FASTINGP ERFORMED BY: Accertify[address] [id number] BY: LabCo Gduwdb35[address] [facility] [id number] Hematocrit Volume Fraction (Bld) 41.0 % Normal 37.5-51.0 [facility] Work Phone: Comment on above: PATIENT WAS FASTINGP ERFORMED BY: Accertify[address] [id number] BY: LabCo Wxrlqy64[address] [facility]in [place] [id number] Hemoglobin mass conc (Bld) 13.9 g/dL Normal 13.0-17.7 [facility] Work Phone: Comment on above: PATIENT WAS FASTINGP ERFORMED BY: BeThere[employer]ards[address] [id number] BY: [facility] Iuljbo3308 Dobbs RoadDublin [place] [id number] Immature granulocytes #/vol (Bld) 0.0 {x10E3/uL} Normal 0.0-0.1 [facility] Work Phone: Comment on above: PATIENT WAS FASTINGP ERFORMED BY: Lab[address] [id number] BY: [facility] Xsvnon8236 Dobbs RoadDublin [place] [id number] Immature granulocytes (Bld) [#/Vol] 0.0 10*3/uL Normal 0.0-0.1 [facility]; [facility] Work Phone: Comment on above: PATIENT WAS FASTINGP ERFORMED BY: Lab[address] [id number] BY: LETICIA [facility] Hbnwrf1942 Dobbs RoadDublin [place] [id number] Immature granulocytes/100 WBC (Bld) 0 % Normal [facility] Work Phone: Comment on above: PATIENT WAS FASTINGP ERFORMED BY: Lab[address] [id number] BY: [facility] Vidbtg0344 Dobbs RoadDublin [place] [id number] Lymphocytes #/vol (Bld) 1.4 {x10E3/uL} Normal 0.7-3.1 [facility] Work Phone: Comment on above: PATIENT WAS FASTINGP ERFORMED BY: Lab[address] [id number] BY: [facility] Rthlqh4227 Dobbs RoadDublin [place] [id number] Lymphocytes (Bld) [#/Vol] 1.4 10*3/uL Normal 0.7-3.1 [facility]; [facility] Work Phone: Comment on above: PATIENT WAS FASTINGP ERFORMED BY: [address] [id number] BY: [facility] Xnpxrl2270 [address] RoadDublin [place] [id number] Lymphocytes/100 WBC (Bld) 23 % Normal [facility] Work Phone: Comment on above: PATIENT WAS FASTINGP ERFORMED BY: LabCoColleen Ville 120317 [facility] [id number] BY: LETICIA [facility] Nzxzuy85[address] [facility] [id number] MCH Entitic mass (RBC) 29.1 pg Normal 26.6-33.0 [facility] Internal Medicine Work Phone: Comment on above: PATIENT WAS FASTINGP ERFORMED BY: LabCo[address] [id number] BY: LETICIA [facility] Uiemuk8556 [facility] [id number] MCHC mass conc (RBC) 33.9 g/dL Normal 31.5-35.7 [facility] Internal Medicine Work Phone: Comment on above: PATIENT WAS FASTINGP ERFORMED BY: [address] [id number] BY: LETICIA [facility] Vuvtov8035 [facility] [id number] MCV Entitic volume (RBC) 86 fL Normal 79-97 [facility] Work Phone: Comment on above: PATIENT WAS FASTINGP ERFORMED BY: Lab[address] [id number] BY: LETICIA [facility] Xorqae2092 [facility] [id number] Monocytes #/vol (Bld) 0.6 {x10E3/uL} Normal 0.1-0.9 [facility] Work Phone: Comment on above: PATIENT WAS FASTINGP ERFORMED BY: [address] [id number] BY: [facility] Kvyjly3780 [facility] [id number] Monocytes (Bld) [#/Vol] 0.6 10*3/uL Normal 0.1-0.9 [facility]; [facility] Work Phone: Comment on above: PATIENT WAS FASTINGP ERFORMED BY: LabCo[address] [id number] BY: [facility] Efaeio6529 Dobbs RoadDublin [place] [id number] Monocytes/100 WBC (Bld) 10 % Normal C omprehensive Internal Medicine Work Phone: Comment on above: PATIENT WAS FASTINGP ERFORMED BY: [facility] [address] [id number] BY: CB [facility] Oxuhps7799 Dobbs RoadDublin [place] [id number] Neutrophils #/vol (Bld) 3.7 {x10E3/uL} Normal 1.4-7.0 [facility] Work Phone: Comment on above: PATIENT WAS FASTINGP ERFORMED BY: Lab[address] [id number] BY: [facility] Pdjlxf8289 Dobbs RoadDuin [place] [id number] Neutrophils (Bld) [#/Vol] 3.7 10*3/uL Normal 1.4-7.0 [facility]; [facility] Work Phone: Comment on above: PATIENT WAS FASTINGP ERFORMED BY: [address] [id number] BY: [facility] Sbqvza3887 Dobbs RoadDuin [place] [id number] Neutrophils/100 WBC (Bld) 63 % Normal [facility] Work Phone: Comment on above: PATIENT WAS FASTINGP ERFORMED BY: LabCo[address] [id number] BY: [facility] Ysjsxl8772 Dobbs RoadDublin [place] [id number] Platelets #/vol (Bld) 170 {x10E3/uL} Normal 150-450 [facility] Work Phone: Comment on above: Please note refere nce interval change PATIENT WAS FASTINGP ERFORMED BY: [address] [id number] BY: LabCoInspira Medical Center WoodburyOidwqt2356 Dobbs RoadDublin [place] [id number] Platelets (Bld) [#/Vol] 170 10*3/uL Normal 150-450 [facility]; [facility] Work Phone: Comment on above: Please note refere nce interval change PATIENT WAS FASTINGP ERFORMED BY: [address] [id number] BY: [facility]6[address] RoadDublin [place] [id number] RBC #/vol (Bld) 4.77 {x10E6/uL} Normal 4.14-5.80 Comp [facility] Work Phone: Comment on above: PATIENT WAS FASTINGP ERFORMED BY: [address] [id number] BY: [place] [id number] [facility] [id number] RBC (Bld) [#/Vol] 4.77 10*6/uL Normal 4.14-5.80 Compr ensive Internal Medicine; [facility] Work Phone: Comment on above: PATIENT WAS FASTINGP ERFORMED BY: [address] [id number] BY: LabFreeman Cancer InstituteImceci3008 [address] RoadDublin [place] [id number] WBC #/vol (Bld) 5.9 {x10E3/uL} Normal 3.4-10.8 Compr ensive Internal Medicine Work Phone: Comment on above: PATIENT WAS FASTINGP ERFORMED BY: [address] [id number] BY: [facility] [facility] [place] [id number] WBC (Bld) [#/Vol] 5.9 10*3/uL Normal 3.4-10.8 Compre [facility] Internal Medicine; [facility] Work Phone: Comment on above: PATIENT WAS FASTINGP ERFORMED BY: LabCo[address] [id number] BY: LETICIA [facility] Ydztkq8853 [address] [facility]bl[facility] [place] [id number] MICROALBUMINOrdered By: Syst em Pearl Glue Operator on 08-03-2018 Albumin DL <= 20 mg/L mass conc (U) 8.5 ug/mL Normal [facility] Work Phone: Comment on above: PATIENT WAS FASTINGP ERFORMED BY: [facility] [address] [id number] BY: LETICIA [facility] Hwknon1995 [address] [facility]in [place] [id number] Albumin/Creatinine mass ratio (U) 8.2 {mg/g_creat} Normal 0.0-30.0 [facility] Work Phone: Comment on above: Normal: 0.0 - 30.0 A lbuminuria: 31.0 - 300.0 Clinical albuminuria: >300.0 PATIENT WAS FASTINGP ERFORMED BY: Accertify[address] [id number] BY: LETICIA LabH[facility]6[address] [facility] [id number] Creatinine mass conc (U) 103.4 mg/dL Normal [facility] Work Phone: Comment on above: PATIENT WAS FASTINGP ERFORMED BY: [employer] [id number] BY: LabCoInspira Medical Center WoodburyDgpgoz4921 [facility] [id number] Metabolic Panel, Comprehensi ve (40001)Ordered By: Costing Manager on 08-03-2018 Albumin mass conc 4.5 g/dL Normal 3.5-4.8 Compreh ensive Internal Medicine Work Phone: Comment on above: PATIENT WAS FASTINGP ERFORMED BY: [employer] [id number] BY: [facility] Ihxvfw8708 [address] RoadDublin [place] [id number]; review at appt next week Albumin/Globulin mass ratio 2.3 {ratio} Abnormal 1.2-2.2 [facility] Work Phone: Comment on above: PATIENT WAS FASTINGP ERFORMED BY: [facility] [address] [id number] BY: LETICIA [facility] Icdhus9280 Dob[address] RoadDublin [place] [id number]; review at appt next week ALP [Catalytic activity/Vol] 80 U/L Normal 39-117 [facility]; [facility] Work Phone: Comment on above: PATIENT WAS FASTINGP ERFORMED BY: [facility]Co[address] [id number] BY: LETICIA [facility] Hyzhpm0197 [address] RoadDublin [place] [id number]; review at appt next week ALP enzyme act/vol 80 [iU]/L Normal 39-117 [facility] Internal Medicine Work Phone: Comment on above: PATIENT WAS FASTINGP ERFORMED BY: Lab[address] [id number] BY: LETICIA [facility] Jlesmw0309 [address] RoadDublin [place] [id number]; review at appt next week ALT [Catalytic activity/Vol] 22 U/L Normal 0-44 [facility]; [facility] Work Phone: Comment on above: PATIENT WAS FASTINGP ERFORMED BY: Lab[address] [id number] BY: [facility] Npasil8046 [address] RoadDublin [place] [id number]; review at appt next week ALT enzyme act/vol 22 [iU]/L Normal 0-44 [facility] Internal Medicine Work Phone: Comment on above: PATIENT WAS FASTINGP ERFORMED BY: Lab[address] [id number] BY: [facility] Kcixnm6899 [address] RoadDublin [place] [id number]; review at appt next week AST [Catalytic activity/Vol] 22 U/L Normal 0-40 [facility]; [facility] Work Phone: Comment on above: PATIENT WAS FASTINGP ERFORMED BY: LabCo[address] [id number] BY: LETICIA [facility] Nrobtj1304 [address] RoadDublin [place] [id number]; review at appt next week AST enzyme act/vol 22 [iU]/L Normal 0-40 Compre [facility] Internal Medicine Work Phone: Comment on above: PATIENT WAS FASTINGP ERFORMED BY: Lab[address] [id number] BY: LETICIA [facility] Udcvjv7717 [address] RoadDublin [place] [id number]; review at appt next week Bilirubin mass conc 0.4 mg/dL Normal 0.0-1.2 Compr ensive Internal Medicine Work Phone: Comment on above: PATIENT WAS FASTINGP ERFORMED BY: [address] [id number] BY: LETICIA [facility] Paokkn0264 [address] RoadDublin [place] [id number]; review at appt next week Calcium mass conc 10.1 mg/dL Normal 8.6-10.2 Compreh [facility] hospitalive Internal Medicine Work Phone: Comment on above: PATIENT WAS FASTINGP ERFORMED BY: [facility] [address] [id number] BY: [facility] Jtiqec0069 [address] RoadDublin [place] [id number]; review at appt next week Chloride molar conc 104 mmol/L Normal 96-106 Compr ensive Internal Medicine Work Phone: Comment on above: PATIENT WAS FASTINGP ERFORMED BY: Lab[address] [id number] BY: LETICIA [facility] Fgnlvd8087 [address]bs RoadDublin [place] [id number]; review at appt next week CO2 molar conc 22 mmol/L Normal 20-29 Comprehens cl Internal Medicine Work Phone: Comment on above: PATIENT WAS FASTINGP ERFORMED BY: [employer] Hltqreprjb[address] [id number] BY: LETICIA [facility] Jrizxy0540 [facility] [id number]; review at appt next week Creatinine mass conc 1.15 mg/dL Normal 0.76-1.27 Comp [facility] Work Phone: Comment on above: PATIENT WAS FASTINGP ERFORMED BY: eFans[address] [id number] BY: LETICIA [employer] Sxmtyz7814 [facility] [id number]; review at appt next week GFR/1.73 sq M predicted among blacks CKD-EPI vol rate/area (S/P/Bld) 74 mL/min/1.73 Normal Comprehe nsive Internal Medicine Work Phone: Comment on above: PATIENT WAS FASTINGP ERFORMED BY: eFans[address] [id number] BY: LETICIA AccertifyInspira Medical Center WoodburyQjbmjl6765 [facility] [id number]; review at appt next week GFR/1.73 sq M predicted among non-blacks CKD-EPI vol rate/area (S/P/Bld) 64 mL/min/1.73 Normal [facility] Work Phone: Comment on above: PATIENT WAS FASTINGP ERFORMED BY: Vupen [address] [id number] BY: [employer] Uebizk5946 [facility] [id number]; review at appt next week Globulin mass conc (S) 2.0 g/dL Normal 1.5-4.5 Co [facility]ensive Internal Medicine Work Phone: Comment on above: PATIENT WAS FASTINGP ERFORMED BY: Lab[address] [id number] BY: LETICIA LabCosandra CastilloAyxxkt2950 Dobbs RoadEcu Health Duplin Hospitalin [place] [id number]; review at appt next week Glucose mass conc 86 mg/dL Normal 65-99 Compreh ensive Internal Medicine Work Phone: Comment on above: PATIENT WAS FASTINGP ERFORMED BY: Lab[address] [id number] BY: LETICIA [facility] Nbcprh37[address] [facility] [id number]; review at appt next week Potassium molar conc 4.7 mmol/L Normal 3.5-5.2 Comp rehensive Internal Medicine Work Phone: Comment on above: PATIENT WAS FASTINGP ERFORMED BY: [address] [id number] BY: LETICIA LabSaint [facility] Ehjrgi12[address] [facility] [id number]; review at appt next week Protein mass conc 6.5 g/dL Normal 6.0-8.5 Compreh ensive Internal Medicine Work Phone: Comment on above: PATIENT WAS FASTINGP ERFORMED BY: [address] [id number] BY: LETICIA [facility] Nfalbq2997 [address] [facility] [id number]; review at appt next week Sodium molar conc 143 mmol/L Normal 134-144 Compreh ensive Internal Medicine Work Phone: Comment on above: PATIENT WAS FASTINGP ERFORMED BY: [address] [id number] BY: LETICIA [facility] Xrnpjq52[address] [facility] [id number]; review at appt next week Urea nitrogen mass conc 25 mg/dL Normal 8-27 C omprehensive Internal Medicine Work Phone: Comment on above: PATIENT WAS FASTINGP ERFORMED BY: LabCo[address] [id number] BY: BeThereRewardsHills & Dales General Hospital6370 [facility] [id number]; review at [facility] next week Urea nitrogen/Creatinine mass ratio 22 mg/mg Normal 10-24 [facility] Work Phone: Comment on above: PATIENT WAS FASTINGP ERFORMED BY: BeThereRewards[address] [id number] BY: BeThereRewardsNichole [place] [id number] [facility] [id number]; [facility] NMR Profile (14546)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-03-2018 Cholesterol mass conc 201 mg/dL Abnormal 100-199 Com [facility]hcinc[facility] Internal Medicine Work Phone: Comment on above: PATIENT WAS FASTINGP ERFORMED BY: Accertify[address] [id number] BY: BeThereRewardsNichole [place] [id number] [facility] [id number] Lipoprotein.alpha molar conc 30.0 umol/L Abnormal [facility] Work Phone: Comment on above: PATIENT WAS FASTINGP ERFORMED BY: Accertify[address] [id number] BY: BeThereRewardsHills & Dales General Hospital6370 [facility] [id number] Lipoprotein.beta.subpar ticle Entitic length 21.3 nm Normal Comprehensi Internal Medicine Work Phone: Comment on above: INTERPRETATIVE INFORMATION PARTICLE CONCENTRATION AND SIZE <--Lower CVD Risk Higher CVD Risk--> LDL AND HDL PARTICLES Percentile in Reference Population HDL-P (total) High 75th 50th 25th Low >34.9 34.9 30.5 26.7 <26.7 . Small LDL-P Low 25th 50th 75th High <117 117 527 839 >839 . LDL Size <-Large (Pattern A)-> <-Small (Pattern B)-> 23.0 20.6 20.5 19.0 Smal l LDL-P and LDL Size are associated with CVD risk, but not afterLDL-P is taken into account. .These assays were developed and their performance characteristicsdetermined by [employer]. These assays have not been cleared by [employer]uj Food and Drug Administration. The clinical utility of theselaboratory values have not been fully established. PATIENT WAS FASTINGP ERFORMED BY: eFans[address] [id number] BY: Zank70 [facility]bsOz[facility] [id number] Lipoprotein.beta.subpar ticle molar conc 1304 nmol/L Abnormal [facility] Work Phone: Comment on above: Low < 1000 Moderate 1000 - 1299 Borderline-High 1300 - 1599 High 1600 - 2000 Very High > 2000 PATIENT WAS FASTINGP ERFORMED BY: eFans[address] [id number] BY: Zank[address] [facility] [id number] Lipoprotein.beta.subpar ticle.small molar conc 288 nmol/L Normal Comprehen [facility] Internal Medicine Work Phone: Comment on above: PATIENT WAS FASTINGP ERFORMED BY: eFans[address] [id number] BY: Zank70 [facility] [id number] Triglyceride mass conc 54 mg/dL Normal 0-149 Co mprehensive Internal Medicine Work Phone: Comment on above: PATIENT WAS FASTINGP ERFORMED BY: eFans[address] [id number] BY: LETICIA [employer] Gxtwxw3831 [facility] [id number] NMR Profile (50720) 125 mg/dL Abnormal 0-99 [facility] Work Phone: Comment on above: . Optimal < 100 Abov e optimal 100 - 129 Borderline 130 - 159 High 160 - 189 Very high > 189 .LDL-C is inaccurate if patient is non-fasting. PATIENT WAS FASTINGP ERFORMED BY: Acc[employer]ify Ajbwbtdnst35[address] [id number] BY: LETICIA Acc[employer]ify Ptqnic1309 [facility] [id number] NMR Profile (73094) 65 mg/dL Normal [facility] Work Phone: Comment on above: PATIENT WAS FASTINGP ERFORMED BY: Acc[employer]ify Ncevfgdzlk473[address] [id number] BY: LETICIA Acc[employer] Ydtasd3396 [facility] [id number] NMR Profile (31604) 54 mg/dL Normal 0-149 [facility]; [facility] Work Phone: NMR Profile (29029) 201 mg/dL Abnormal 100-199 [facility]; [facility] Work Phone: TSH (95646)Ordered By: Syste m Pearl Glue Operator on 08-03-2018 Thyrotropin Qn 3.690 {uIU/mL} Normal 0.450-4.50 0 [facility] Work Phone: Comment on above: PATIENT WAS FASTINGP ERFORMED BY: Acc[employer]ify Wbhgcjvyno35[address] [id number] BY: Accertify Xkvjbm7567 [facility] [id number] URINALYSIS (92521)Ordered By : Costing Manager on 08-03-2018 Appearance Nom (U) Clear Normal [facility] Internal Medicine Work Phone: Comment on above: PATIENT WAS FASTINGP ERFORMED BY: Accertify [address] [id number] BY: LETICIA [facility] Hxksln0977 [address] RoadDublin [place] [id number] Bilirubin Ql (U) Negative Normal Comprehe nsive Internal Medicine Work Phone: Comment on above: PATIENT WAS FASTINGP ERFORMED BY: [address] [id number] BY: LETICIA [facility] Cjswyg4639 [address] RoadDublin [place] [id number] Bilirubin Ql (U) Negative Normal Comprehe nsive Internal Medicine; [facility] Work Phone: Comment on above: PATIENT WAS FASTINGP ERFORMED BY: [address] [id number] BY: LETICIA [facility] Wxvamy6644 [address] RoadDublin [place] [id number] Color Nom (U) Yellow Normal Comprehensi ve Internal Medicine Work Phone: Comment on above: PATIENT WAS FASTINGP ERFORMED BY: Lab[address] [id number] BY: LETICIA [facility] Cijjbq6148 [address] RoadDublin [place] [id number] Glucose Ql (U) Negative Normal Comprehens cl Internal Medicine Work Phone: Comment on above: PATIENT WAS FASTINGP ERFORMED BY: [address] [id number] BY: LETICIA [facility] Vndsip7643 [address] RoadDublin [place] [id number] Glucose Ql (U) Negative Normal Comprehens cl Internal Medicine; [facility] Work Phone: Comment on above: PATIENT WAS FASTINGP ERFORMED BY: Lab[address] [id number] BY: LETICIA [facility] Rjvfyh7190 [address] RoadDublin [place] [id number] Hemoglobin Ql (U) Negative Normal Compreh ensive Internal Medicine Work Phone: Comment on above: PATIENT WAS FASTINGP ERFORMED BY: LabCo[address] [id number] BY: LETICIA [facility] Qffble0838 [address] RoadDublin [place] [id number] Hemoglobin Ql (U) Negative Normal Compreh ensive Internal Medicine; [facility] Work Phone: Comment on above: PATIENT WAS FASTINGP ERFORMED BY: [facility] [address] [id number] BY: CB [facility] Ivcmhs6369 [address]bs RoadDublin [place] [id number] Ketones Ql (U) Negative Normal Comprehens cl Internal Medicine Work Phone: Comment on above: PATIENT WAS FASTINGP ERFORMED BY: Lab[address] [id number] BY: LETICIA [facility] Lfarkh8982 [address] RoadDublin [place] [id number] Ketones Ql (U) Negative Normal Comprehens cl Internal Medicine; [facility] Work Phone: Comment on above: PATIENT WAS FASTINGP ERFORMED BY: [address] [id number] BY: LETICIA [facility] Lreaij0965 [address] RoadDublin [place] [id number] Leukocyte esterase Test strip Ql (U) Negative Normal [facility] Work Phone: Comment on above: PATIENT WAS FASTINGP ERFORMED BY: Lab[address] [id number] BY: LETICIA [facility] Jjwerl7630 [address] RoadDublin [place] [id number] Leukocyte esterase Test strip Ql (U) Negative Normal [facility]; [facility] Work Phone: Comment on above: PATIENT WAS FASTINGP ERFORMED BY: Lab[address] [id number] BY: LETICIA [facility] Mnmvmw8411 [address] RoadDublin [place] [id number] Microscopic observation LM Nom (Urine sed) MICNIP Normal [facility] Work Phone: Comment on above: Microscopic not kiana cated and not performed. PATIENT WAS FASTINGP ERFORMED BY: [address] [id number] BY: LETICIA [facility] Bsgoas3763 [address] RoadDublin [place] [id number] Nitrite Ql (U) Negative Normal Comprehens cl Internal Medicine Work Phone: Comment on above: PATIENT WAS FASTINGP ERFORMED BY: [address] [id number] BY: LETICIA [facility] Jtedqg7542 [address] RoadDublin [place] [id number] Nitrite Ql (U) Negative Normal Comprehens cl Internal Medicine; [facility] Work Phone: Comment on above: PATIENT WAS FASTINGP ERFORMED BY: [address] [id number] BY: [facility] Loacyy4168 [address] RoadDublin [place] [id number] pH (U) 6.5 [pH] Normal 5.0-7.5 [facility] Work Phone: Comment on above: PATIENT WAS FASTINGP ERFORMED BY: [address] [id number] BY: [facility] Tgwpcz8748 [address] RoadDublin [place] [id number] Protein Ql (U) Negative Normal Comprehens cl Internal Medicine Work Phone: Comment on above: PATIENT WAS FASTINGP ERFORMED BY: [address] [id number] BY: [facility] Poypgn3710 [address] RoadDublin [place] [id number] Protein Ql (U) Negative Normal Comprehens cl Internal Medicine; [facility] Work Phone: Comment on above: PATIENT WAS FASTINGP ERFORMED BY: [address] [id number] BY: Accertify Aegpsf9332 [address] RoadDublin [place] [id number] Specific gravity Relative Density (U) 1.016 1 Normal 1.005-1.03 0 [facility] Work Phone: Comment on above: PATIENT WAS FASTINGP ERFORMED BY: BeThereRewards[address] [id number] BY: [facility] Thullc1501 [address] RoadDublin [place] [id number] Urobilinogen (U) [Mass/Vol] 0.2 mg/dL Normal 0.2-1.0 [facility]; [facility] Work Phone: Comment on above: PATIENT WAS FASTINGP ERFORMED BY: BeThereRewards[address] [id number] BY: Accertify Wrrfwv1167 [address] RoadDublin [place] [id number] Urobilinogen Test strip mass conc (U) 0.2 mg/dL Normal 0.2-1.0 [facility] Work Phone: Comment on above: PATIENT WAS FASTINGP ERFORMED BY: Accertify[address] [id number] BY: AccertifyAdvanced Care Hospital of Southern New MexicoGcgwmv3795 [address] RoadDublin [place] [id number] CALCIFEDIOL (33864)Ordered B y: Costing Manager on 01-31-2018 25-Hydroxyvitamin D2+25-Hydroxyvitamin D3 mass conc 50.1 ng/mL Normal 30.0-100.0 [facility] Work Phone: Comment on above: Vitamin D deficiency has been defined by the [place] ofMedicine and an Endocrine Society practice guideline as alevel of serum 25-OH vitamin D less than 20 ng/mL (1,2).The Endocrine Society went on to further define vitamin Dinsufficiency as a level between 21 and 29 ng/mL (2).1. IOM ([place] of Medicine). 2010. Dietary reference intakes for calcium and D. [place]: The National Academies Press.2. Claudio BROTHERS, Kamilla ZIEGLER, Leonid RANDOLPH, et al. Evaluation, treatment, and prevention of vitamin D deficiency: an Endocrine Society clinical practice guideline. JCEM. 2010; 96(7):1911-30. PATIENT WAS FASTINGP ERFORMED BY: Accertify[address] [id number] BY: AccertifyAmanda [place]ille 6135470 [facility] [id number] CBC W/AUTO DIFF WBC (69181)O rdered By: Costing Manager on 01-31-2018 Basophils (Bld) [#/Vol] 0.0 {x10E3/uL} Normal 0.0-0.2 [facility] Work Phone: Comment on above: PATIENT WAS FASTINGP ERFORMED BY: Accertify[address] [id number] BY: AccertifyAmanda [place] [id number] [facility] [id number] Basophils (Bld) [#/Vol] 0.0 10*3/uL Normal 0.0-0.2 [facility]; [facility] Work Phone: Comment on above: PATIENT WAS FASTINGP ERFORMED BY: Accertify[address] [id number] BY: AccertifyAmanda [place] 6135470 [facility] [id number] Basophils Auto #/vol (Bld) 0.0 {x10E3/uL} Normal 0.0-0.2 [facility] Work Phone: Basophils/100 WBC (Bld) 1 % Normal C omprehensive Internal Medicine Work Phone: Comment on above: PATIENT WAS FASTINGP ERFORMED BY: Accertify[address] [id number] BY: AccertifyAmanda [place]ille 6135470 [facility] [id number] Basophils/100 WBC Auto (Bld) 1 % Normal [facility] Work Phone: Eosinophils (Bld) [#/Vol] 0.3 {x10E3/uL} Normal 0.0-0.4 [facility] Work Phone: Comment on above: PATIENT WAS FASTINGP ERFORMED BY: Accertify[address] [id number] BY: LETICIA Accertify Yspiwg49[address] [facility] [id number] Eosinophils (Bld) [#/Vol] 0.3 10*3/uL Normal 0.0-0.4 [facility]; [facility] Work Phone: Comment on above: PATIENT WAS FASTINGP ERFORMED BY: Vupen [address] [id number] BY: LETICIA Accertify Izmdru4677 [facility] [id number] Eosinophils Auto #/vol (Bld) 0.3 {x10E3/uL} Normal 0.0-0.4 [facility] Work Phone: Eosinophils/100 WBC (Bld) 4 % Normal [facility] Work Phone: Comment on above: PATIENT WAS FASTINGP ERFORMED BY: [employer] [id number] BY: Accertify Njnezl3082 [facility] [id number] Eosinophils/100 WBC Auto (Bld) 4 % Normal [facility] Work Phone: Erythrocyte distribution width (RBC) [Ratio] 14.5 % Normal 12.3-15.4 [facility] Work Phone: Comment on above: PATIENT WAS FASTINGP ERFORMED BY: Accertify[address] [id number] BY: AccertifyInspira Medical Center WoodburyAalann2213 [facility] [id number] Erythrocyte distribution width Auto Ratio (RBC) 14.5 % Normal 12.3-15.4 [facility] Work Phone: Hematocrit (Bld) [Volume fraction] 41.9 % Normal 37.5-51.0 [facility] Work Phone: Comment on above: PATIENT WAS FASTINGP ERFORMED BY: BeThereRewards[address] [id number] BY: LETICIA [facility] Cerohz8029 [address] RoadDublin [place] [id number] Hematocrit Auto Volume Fraction (Bld) 41.9 % Normal 37.5-51.0 [facility] Work Phone: Hemoglobin mass conc (Bld) 14.0 g/dL Normal 13.0-17.7 [facility] Work Phone: Comment on above: PATIENT WAS FASTINGP ERFORMED BY: BeThereRewards[address] [id number] BY: [facility] Ryqmwv9838 Dobbs RoadDublin [place] [id number] Immature granulocytes #/vol (Bld) 0.0 {x10E3/uL} Normal 0.0-0.1 [facility] Work Phone: Comment on above: PATIENT WAS FASTINGP ERFORMED BY: BeThere[employer] [id number] BY: LETICIA [facility] Jeaoos7247 [address] RoadDublin [place] [id number] Immature granulocytes (Bld) [#/Vol] 0.0 10*3/uL Normal 0.0-0.1 [facility]; [facility] Work Phone: Comment on above: PATIENT WAS FASTINGP ERFORMED BY: BeThere[employer] [id number] BY: [facility] Ftpcuz2217 Dobsb RoadDublin [place] [id number] Immature granulocytes/100 WBC (Bld) 0 % Normal [facility] Work Phone: Comment on above: PATIENT WAS FASTINGP ERFORMED BY: [address] [id number] BY: [facility] Aicgnw7513 [address] RoadDublin [place] [id number] Lymphocytes (Bld) [#/Vol] 2.0 {x10E3/uL} Normal 0.7-3.1 [facility] Work Phone: Comment on above: PATIENT WAS FASTINGP ERFORMED BY: [address] [id number] BY: [place] [id number] [address] [facility] [id number] Lymphocytes (Bld) [#/Vol] 2.0 10*3/uL Normal 0.7-3.1 [facility]; [facility] Work Phone: Comment on above: PATIENT WAS FASTINGP ERFORMED BY: Accert[employer] [id number] BY: [facility] HospitalGrey Orange RoboticsAmanda Ville 6135470 [facility] [id number] Lymphocytes Auto #/vol (Bld) 2.0 {x10E3/uL} Normal 0.7-3.1 [facility] Work Phone: Lymphocytes/100 WBC (Bld) 30 % Normal [facility] Work Phone: Comment on above: PATIENT WAS FASTINGP ERFORMED BY: Accertify[address] [id number] BY: AccertifyAmanda Ville 6135470 [facility] [id number] Lymphocytes/100 WBC Auto (Bld) 30 % Normal [facility] Work Phone: MCH (RBC) [Entitic mass] 28.9 pg Normal 26.6-33.0 [facility] Work Phone: Comment on above: PATIENT WAS FASTINGP ERFORMED BY: Accertify[address] [id number] BY: [place] [id number] [facility] [id number] MCH Auto Entitic mass (RBC) 28.9 pg Normal 26.6-33.0 [facility] Work Phone: MCHC (RBC) [Mass/Vol] 33.4 g/dL Normal 31.5-35.7 [facility] Work Phone: Comment on above: PATIENT WAS FASTINGP ERFORMED BY: [employer] [id number] BY: [employer] Bbxzxn5667 [facility] [id number] MCHC Auto mass conc (RBC) 33.4 g/dL Normal 31.5-35.7 [facility] Work Phone: MCV (RBC) [Entitic vol] 87 fL Normal 79-97 [facility]ensive [facility] Work Phone: Comment on above: PATIENT WAS FASTINGP ERFORMED BY: Vupen [address] [id number] BY: 6Senselin6370 [facility] [id number] MCV Auto Entitic volume (RBC) 87 fL Normal 79-97 [facility] Work Phone: Monocytes (Bld) [#/Vol] 0.7 {x10E3/uL} Normal 0.1-0.9 [facility] Work Phone: Comment on above: PATIENT WAS FASTINGP ERFORMED BY: Vupen [address] [id number] BY: Blue Ocean SoftwareAmanda [place]ille 6135470 [facility] [id number] Monocytes (Bld) [#/Vol] 0.7 10*3/uL Normal 0.1-0.9 [facility]; [facility] Work Phone: Comment on above: PATIENT WAS FASTINGP ERFORMED BY: [employer] [id number] BY: Blue Ocean SoftwareAmanda [place] 6135470 [facility] [id number] Monocytes Auto #/vol (Bld) 0.7 {x10E3/uL} Normal 0.1-0.9 [facility] Work Phone: Monocytes/100 WBC (Bld) 11 % Normal C omprehensive Internal Medicine Work Phone: Comment on above: PATIENT WAS FASTINGP ERFORMED BY: Accertify[address] [id number] BY: [employer] Xtglgp4836 Dobbs RoadDuin [place] [id number] Monocytes/100 WBC Auto (Bld) 11 % Normal [facility] Work Phone: Neutrophils (Bld) [#/Vol] 3.5 {x10E3/uL} Normal 1.4-7.0 [facility] Work Phone: Comment on above: PATIENT WAS FASTINGP ERFORMED BY: Vupen [address] [id number] BY: LETICIA 5to16370 Dobbs RoadWilson Medical Center [id number] Neutrophils (Bld) [#/Vol] 3.5 10*3/uL Normal 1.4-7.0 [facility]; [facility] Work Phone: Comment on above: PATIENT WAS FASTINGP ERFORMED BY: Vupen [address] [id number] BY: LETICIA AccertifyInspira Medical Center WoodburyKfvfra7[address] [facility] [id number] Neutrophils Auto #/vol (Bld) 3.5 {x10E3/uL} Normal 1.4-7.0 [facility] Work Phone: Neutrophils/100 WBC (Bld) 54 % Normal [facility] Work Phone: Comment on above: PATIENT WAS FASTINGP ERFORMED BY: Spindle [address] [id number] BY: AccertifyAmanda Ville 6135470 [facility] [id number] Neutrophils/100 WBC Auto (Bld) 54 % Normal [facility] Work Phone: Platelets (Bld) [#/Vol] 176 {x10E3/uL} Normal 150-379 [facility] Work Phone: Comment on above: PATIENT WAS FASTINGP ERFORMED BY: Accertify[address] [id number] BY: LabCoInspira Medical Center WoodburyVoiwuc0923 [facility] [id number] Platelets (Bld) [#/Vol] 176 10*3/uL Normal 150-379 [facility]; [facility] Work Phone: Comment on above: PATIENT WAS FASTINGP ERFORMED BY: Accertify[address] [id number] BY: LabGrey Orange RoboticsAmanda Ville 6135470 [facility] [id number] Platelets Auto #/vol (Bld) 176 {x10E3/uL} Normal 150-379 [facility] Work Phone: RBC (Bld) [#/Vol] 4.84 {x10E6/uL} Normal 4.14-5.80 [facility] Internal Medicine Work Phone: Comment on above: PATIENT WAS FASTINGP ERFORMED BY: Accertify[address] [id number] BY: LabGrey Orange RoboticsAmanda Ville 6135470 [facility] [id number] RBC (Bld) [#/Vol] 4.84 10*6/uL Normal 4.14-5.80 [facility] Internal Medicine; [facility] Work Phone: Comment on above: PATIENT WAS FASTINGP ERFORMED BY: Accertify[address] [id number] BY: LabGrey Orange RoboticsInspira Medical Center WoodburyAzdfgj3491 [facility] [id number] RBC Auto #/vol (Bld) 4.84 {x10E6/uL} Normal 4.14-5.80 [facility] Work Phone: WBC (Bld) [#/Vol] 6.4 {x10E3/uL} Normal 3.4-10.8 [facility] Internal Medicine Work Phone: Comment on above: PATIENT WAS FASTINGP ERFORMED BY: Accertify[address] [id number] BY: LabHills & Dales [facility] Hospital6370 [facility] [id number] WBC (Bld) [#/Vol] 6.4 10*3/uL Normal 3.4-10.8 [facility] Internal Medicine; [facility] Work Phone: Comment on above: PATIENT WAS FASTINGP ERFORMED BY: [employer] [id number] BY: LETICIA LabHills & Dales [facility] Hospital6370 [facility] [id number] WBC Auto #/vol (Bld) 6.4 {x10E3/uL} Normal 3.4-10.8 [facility] Work Phone: LIPOPROTEIN, BLD, BY NMR (01 254)Ordered By: Costing Manager on 01-31-2018 Cholesterol in HDL mass conc 62 mg/dL Normal [facility] Work Phone: Comment on above: PATIENT WAS FASTINGP ERFORMED BY: Accertify Igdopvwzdw[address] [id number] BY: LabGrey Orange RoboticsAmanda Ville 6135470 [facility] [id number] Cholesterol in LDL mass conc 107 mg/dL Abnormal 0-99 [facility] Work Phone: Comment on above: . Optimal < 100 Abov e optimal 100 - 129 Borderline 130 - 159 High 160 - 189 Very high > 189 .LDL-C is inaccurate if patient is non-fasting. PATIENT WAS FASTINGP ERFORMED BY: Accertify Yrzmtegcuq[address] [id number] BY: [facility]6370 [facility] [id number] Cholesterol mass conc 182 mg/dL Normal 100-199 Com prehensive Internal Medicine Work Phone: Comment on above: PATIENT WAS FASTINGP ERFORMED BY: Accertify[address] [id number] BY: AccertifyInspira Medical Center WoodburyVcydnk1791 [facility] [id number] Lipoprotein.alpha molar conc 34.7 umol/L Normal [facility] Internal Medicine Work Phone: Comment on above: PATIENT WAS FASTINGP ERFORMED BY: Accertify[address] [id number] BY: AccertifyInspira Medical Center WoodburyFoalzk3423 [facility] [id number] Lipoprotein.beta.subpar ticle Entitic length 21.4 nm Normal [facility] Internal Medicine Work Phone: Comment on above: INTERPRETATIVE INFORMATION PARTICLE CONCENTRATION AND SIZE <--Lower CVD Risk Higher CVD Risk--> LDL AND HDL PARTICLES Percentile in Reference Population HDL-P (total) High 75th 50th 25th Low >34.9 34.9 30.5 26.7 <26.7 . Small LDL-P Low 25th 50th 75th High <117 117 527 839 >839 . LDL Size <-Large (Pattern A)-> <-Small (Pattern B)-> 23.0 20.6 20.5 19.0 Smal l LDL-P and LDL Size are associated with CVD risk, but not afterLDL-P is taken into account. .These assays were developed and their performance characteristicsdetermined by [employer]. These assays have not been cleared by [place] Food and Drug Administration. The clinical utility of theselaboratory values have not been fully established. PATIENT WAS FASTINGP ERFORMED BY: Accertify[address] [id number] BY: [facility] Scygrs08[address] [facility]in [place] [id number] Lipoprotein.beta.subpar ticle molar conc 1220 nmol/L Abnormal [facility] Work Phone: Comment on above: Low < 1000 Moderate 1000 - 1299 Borderline-High 1300 - 1599 High 1600 - 2000 Very High > 2000 PATIENT WAS FASTINGP ERFORMED BY: [facility] [address] [id number] BY: CB [facility] Dggvxv8712 [address] [facility]in [place] [id number] Lipoprotein.beta.subpar ticle.small molar conc 342 nmol/L Normal Comprehen sive Internal Medicine Work Phone: Comment on above: PATIENT WAS FASTINGP ERFORMED BY: LabGrey Orange Robotics[address] [id number] BY: [facility] Slpztg3603 [facility] [id number] Triglyceride mass conc 65 mg/dL Normal 0-149 Co mprehensive [facility] Work Phone: Comment on above: PATIENT WAS FASTINGP ERFORMED BY: LabGrey Orange Robotics[address] [id number] BY: [facility] Hpjwvi8069 [facility] [id number] METABOLIC PANEL, COMPREHENSI VE ([id number])Ordered By: Costing Manager on 01-31-2018 Albumin mass conc 4.4 g/dL Normal 3.5-4.8 Compreh ensive Internal Medicine Work Phone: Comment on above: PATIENT WAS FASTINGP ERFORMED BY: Lab[address] [id number] BY: LabCoInspira Medical Center WoodburyUoioyz0552 [facility] [id number] Albumin/Globulin mass ratio 2.1 {ratio} Normal 1.2-2.2 [facility] Work Phone: Comment on above: PATIENT WAS FASTINGP ERFORMED BY: Lab[address] [id number] BY: LETICIA [facility] Wjurdv9613 [address]bs RoadDublin [place] [id number] ALP [Catalytic activity/Vol] 67 U/L Normal 39-117 [facility]; [facility] Work Phone: Comment on above: PATIENT WAS FASTINGP ERFORMED BY: Lab[address] [id number] BY: LETICIA [facility] Vddzew7006 Dobbs RoadDublin [place] [id number] ALP enzyme act/vol 67 [iU]/L Normal 39-117 [facility] Internal Medicine Work Phone: Comment on above: PATIENT WAS FASTINGP ERFORMED BY: Lab[address] [id number] BY: LETICIA [facility] Xooxxn5344 [address] RoadDublin [place] [id number] ALT [Catalytic activity/Vol] 25 U/L Normal 0-44 [facility]; [facility] Internal Medicine Work Phone: Comment on above: PATIENT WAS FASTINGP ERFORMED BY: [address] [id number] BY: LETICIA [facility] Uoyiju5392 [address] RoadDublin [place] [id number] ALT enzyme act/vol 25 [iU]/L Normal 0-44 [facility] Internal Medicine Work Phone: Comment on above: PATIENT WAS FASTINGP ERFORMED BY: Lab[address] [id number] BY: LETICIA [facility] Qgwoar6763 [address] RoadDublin [place] [id number] AST [Catalytic activity/Vol] 22 U/L Normal 0-40 [facility]; [facility] Work Phone: Comment on above: PATIENT WAS FASTINGP ERFORMED BY: LabCo[address] [id number] BY: LETICIA [facility] Xqblpz0638 [address] RoadDublin [place] [id number] AST enzyme act/vol 22 [iU]/L Normal 0-40 Compre hensive Internal Medicine Work Phone: Comment on above: PATIENT WAS FASTINGP ERFORMED BY: [facility] [address] [id number] BY: LETICIA [facility] Nfptew5452 [address]bs RoadDublin [place] [id number] Bilirubin mass conc 0.3 mg/dL Normal 0.0-1.2 Compr ehensive Internal Medicine Work Phone: Comment on above: PATIENT WAS FASTINGP ERFORMED BY: [facility] [address] [id number] BY: LETICIA [facility] Zhqosj6641 [address] RoadDublin [place] [id number] Calcium mass conc 9.8 mg/dL Normal 8.6-10.2 Compreh ensive Internal Medicine Work Phone: Comment on above: PATIENT WAS FASTINGP ERFORMED BY: [facility] [address] [id number] BY: LETICIA [facility] Tmpgvf7136 [address]bs RoadDublin [place] [id number] Chloride molar conc 108 mmol/L Abnormal 96-106 Compr ensive Internal Medicine Work Phone: Comment on above: PATIENT WAS FASTINGP ERFORMED BY: [facility] [address] [id number] BY: LETICIA [facility] Fglvzc6499 Dob[address] RoadDublin [place] [id number] CO2 molar conc 24 mmol/L Normal 20-29 Comprehens cl Internal Medicine Work Phone: Comment on above: PATIENT WAS FASTINGP ERFORMED BY: [facility] [address] [id number] BY: CB [facility] Vakuzj0466 [address]bs RoadDublin [place] [id number] Creatinine mass conc 1.18 mg/dL Normal 0.76-1.27 Comp rehensive Internal Medicine Work Phone: Comment on above: PATIENT WAS FASTINGP ERFORMED BY: Accertify[address] [id number] BY: [facility] Xkjbrq0678 [address] RoadDublin [place] [id number] GFR/1.73 sq M predicted among blacks CKD-EPI vol rate/area (S/P/Bld) 72 mL/min/1.73 Normal Comprehe nsive Internal Medicine Work Phone: Comment on above: PATIENT WAS FASTINGP ERFORMED BY: LabGrey Orange Robotics[address] [id number] BY: [facility] Qbkgkk5554 [address] RoadDublin [place] [id number] GFR/1.73 sq M predicted among non-blacks CKD-EPI vol rate/area (S/P/Bld) 62 mL/min/1.73 Normal [facility] Work Phone: Comment on above: PATIENT WAS FASTINGP ERFORMED BY: Accertify[address] [id number] BY: [facility] Bxexvf6235 [address] RoadDublin [place] [id number] Globulin (S) [Mass/Vol] 2.1 g/dL Normal 1.5-4.5 C omprehensive Internal Medicine Work Phone: Comment on above: PATIENT WAS FASTINGP ERFORMED BY: Accertify[address] [id number] BY: [facility] Anupou9095 [address]bs RoadEcu Health Duplin Hospitalin [place] [id number] Globulin Calculated mass conc (S) 2.1 g/dL Normal 1.5-4.5 [facility] Work Phone: Glucose mass conc 98 mg/dL Normal 65-99 Compreh ensive Internal Medicine Work Phone: Comment on above: PATIENT WAS FASTINGP ERFORMED BY: Accertify[address] [id number] BY: [facility] Ugvdrd4486 Dobbs RoadDublin [place] [id number] Potassium molar conc 4.7 mmol/L Normal 3.5-5.2 Comp rehensive Internal Medicine Work Phone: Comment on above: PATIENT WAS FASTINGP ERFORMED BY: [facility] [address] [id number] BY: LETICIA [facility] Ksxjfx4343 [address] RoadDublin [place] [id number] Protein mass conc 6.5 g/dL Normal 6.0-8.5 Compreh ensive Internal Medicine Work Phone: Comment on above: PATIENT WAS FASTINGP ERFORMED BY: BN [facility] [address] [id number] BY: LETICIA [facility] Zpdhuk6958 Dobbs RoadEcu Health Duplin Hospitalin [place] [id number] Sodium molar conc 144 mmol/L Normal 134-144 Compreh ensive Internal Medicine Work Phone: Comment on above: PATIENT WAS FASTINGP ERFORMED BY: [facility] [address] [id number] BY: LETICIA [facility] Eozvxe3335 Dobbs RoadDuin [place] [id number] Urea nitrogen mass conc 26 mg/dL Normal 8-27 C omprehensive Internal Medicine Work Phone: Comment on above: PATIENT WAS FASTINGP ERFORMED BY: [facility] [address] [id number] BY: LETICIA [facility] Jhrvqi4831 Dobbs RoadEcu Health Duplin Hospitalin [place] [id number] Urea nitrogen/Creatinine mass ratio 22 mg/mg Normal 10-24 [facility] Work Phone: Comment on above: PATIENT WAS FASTINGP ERFORMED BY: [facility] [address] [id number] BY: CB [facility] Lroera5187 Dobbs RoadDuin [place] [id number] MICROALBUMINOrdered By: Syst em Pearl Glue Operator on 01-31-2018 Albumin DL <= 20 mg/L mass conc (U) 5.4 ug/mL Normal [facility] Work Phone: Comment on above: PATIENT WAS FASTINGP ERFORMED BY: Accertify[address] [id number] BY: LabG[employer] Qfmzjl2415 [facility] [id number] Albumin/Creatinine mass ratio (U) 5.2 {mg/g_creat} Normal 0.0-30.0 [facility] Work Phone: Comment on above: Normal: 0.0 - 30.0 A lbuminuria: 31.0 - 300.0 Clinical albuminuria: >300.0 PATIENT WAS FASTINGP ERFORMED BY: Accertify[address] [id number] BY: [facility] HospitalGrey Orange RoboticsAmanda Ville 6135470 [facility] [id number] Creatinine mass conc (U) 104.6 mg/dL Normal [facility] Work Phone: Comment on above: PATIENT WAS FASTINGP ERFORMED BY: Accertify[address] [id number] BY: LabHills [facility] Hospital6370 [facility] [id number] Microscopic ExaminationOrder ed By: Costing Manager on 01-31-2018 Bacteria LM.HPF #/area (Urine sed) None seen Normal [facility] Work Phone: Comment on above: PATIENT WAS FASTINGP ERFORMED BY: Accertify[address] [id number] BY: LabHills & [facility] Hospital6370 [facility] [id number] Epithelial cells LM.HPF #/area (Urine sed) None seen Normal 0 - 10 [facility] Work Phone: Comment on above: PATIENT WAS FASTINGP ERFORMED BY: Accertify[address] [id number] BY: [facility] Bjstfu1361 [facility] [id number] Mucus LM Ql (Urine sed) Present Normal C omprehensive Internal Medicine Work Phone: Mucus Ql (Urine sed) Present Normal Comp rehensive Internal Medicine Work Phone: Comment on above: PATIENT WAS FASTINGP ERFORMED BY: LabGrey [employer]otics[address] [id number] BY: [facility] Apmuat6779 [address] RoadDublin [place] [id number] RBC LM.HPF #/area (Urine sed) None seen Normal 0 - 2 [facility] Work Phone: Comment on above: PATIENT WAS FASTINGP ERFORMED BY: LabGrey Orange Roboticsrp [address] [id number] BY: CB [facility] Powyya7394 [address] RoadDublin [place] [id number] WBC LM.HPF #/area (Urine sed) 0-5 Normal 0 - 5 [facility] Work Phone: Comment on above: PATIENT WAS FASTINGP ERFORMED BY: LabGrey [employer]otics[address] [id number] BY: [facility] Caejkd1245 [address] RoadDublin [place] [id number] TSH ([id number])Ordered By: Syste m Pearl Glue Operator on 01-31-2018 Thyrotropin Qn 3.160 {uIU/mL} Normal 0.450-4.50 0 [facility] Work Phone: Comment on above: PATIENT WAS FASTINGP ERFORMED BY: LabGrey Orange Robotics[address] [id number] BY: [facility] Emdytu0864 [address] RoadDublin [place] [id number] URINALYSIS, W/ MICRO ([id number]) Ordered By: Costing Manager on 01-31-2018 Appearance Nom (U) Clear Normal Compre hensive Internal Medicine Work Phone: Comment on above: PATIENT WAS FASTINGP ERFORMED BY: LabCo[address] [id number] BY: CB [facility] Senuof2923 [address] RoadDublin [place] [id number] Bilirubin Ql (U) Negative Normal Comprehe nsive Internal Medicine Work Phone: Comment on above: PATIENT WAS FASTINGP ERFORMED BY: LabCo[address] [id number] BY: LETICIA [facility] Trjjbu6743 [address] RoadDublin [place] [id number] Bilirubin Ql (U) Negative Normal Comprehe nsive Internal Medicine; [facility] Work Phone: Comment on above: PATIENT WAS FASTINGP ERFORMED BY: [facility] [address] [id number] BY: LETICIA [facility] Orlwfo7069 [address] RoadDublin [place] [id number] Color Nom (U) Yellow Normal Comprehensi ve Internal Medicine Work Phone: Comment on above: PATIENT WAS FASTINGP ERFORMED BY: Lab[address] [id number] BY: LETICIA [facility] Aghuaa3017 [address] RoadDublin [place] [id number] Glucose Ql (U) Negative Normal Comprehens cl Internal Medicine Work Phone: Comment on above: PATIENT WAS FASTINGP ERFORMED BY: Lab[address] [id number] BY: LETICIA [facility] Rytram1902 [address] RoadDublin [place] [id number] Glucose Ql (U) Negative Normal Comprehens cl Internal Medicine; [facility] Work Phone: Comment on above: PATIENT WAS FASTINGP ERFORMED BY: LabCo[address] [id number] BY: LETICIA [facility] Lobvgh2812 [address] RoadDublin [place] [id number] Hemoglobin Ql (U) Negative Normal Compreh ensive Internal Medicine Work Phone: Comment on above: PATIENT WAS FASTINGP ERFORMED BY: Lab[address] [id number] BY: LETICIA [facility] Gzndxo1296 [address] RoadDublin [place] [id number] Hemoglobin Ql (U) Negative Normal Compreh ensive Internal Medicine; [facility] Work Phone: Comment on above: PATIENT WAS FASTINGP ERFORMED BY: [facility] [address] [id number] BY: LETICIA [facility] Lcezrr7796 [address] RoadDublin [place] [id number] Hemoglobin Test strip Ql (U) Negative Normal [facility] Work Phone: Ketones Ql (U) Negative Normal Comprehens cl Internal Medicine Work Phone: Comment on above: PATIENT WAS FASTINGP ERFORMED BY: [facility] [address] [id number] BY: LETICIA [facility] Mzctjv2728 [address] RoadDublin [place] [id number] Ketones Ql (U) Negative Normal Comprehens cl Internal Medicine; [facility] Work Phone: Comment on above: PATIENT WAS FASTINGP ERFORMED BY: [facility] [address] [id number] BY: LETICIA [facility] Ihfhpy2309 [address] RoadDublin [place] [id number] Leukocyte esterase Test strip Ql (U) Negative Normal [facility] Work Phone: Comment on above: PATIENT WAS FASTINGP ERFORMED BY: [facility] [address] [id number] BY: [facility] Jnxcpo3336 [address] RoadDublin [place] [id number] Leukocyte esterase Test strip Ql (U) Negative Normal [facility]; [facility] Work Phone: Comment on above: PATIENT WAS FASTINGP ERFORMED BY: [facility] [address] [id number] BY: CB [facility] Ttyhei4289 [address] RoadDublin [place] [id number] Microscopic observation LM Nom (Urine sed) See below: Normal [facility] Work Phone: Comment on above: Microscopic was kiana cated and was performed. PATIENT WAS FASTINGP ERFORMED BY: BeThereRewards[address] [id number] BY: [facility] Ebvxmn4213 Dobbs RoadDublin [place] [id number] Microscopic observation LM Nom (Urine sed) MICRON Normal [facility] Work Phone: Comment on above: Microscopic follows if indicated. PATIENT WAS FASTINGP ERFORMED BY: [address] [id number] BY: LETICIA [facility] Oqfqgb1536 Dobbs RoadDublin [place] [id number] Nitrite Ql (U) Negative Normal Comprehens cl Internal Medicine Work Phone: Comment on above: PATIENT WAS FASTINGP ERFORMED BY: [address] [id number] BY: [facility] Bzofzs3584 Dobbs RoadDublin [place] [id number] Nitrite Ql (U) Negative Normal Comprehens cl [facility]; [facility] Work Phone: Comment on above: PATIENT WAS FASTINGP ERFORMED BY: [employer]There[employer] [id number] BY: [facility] Zszerj1663 [address] RoadDublin [place] [id number] Nitrite Test strip Ql (U) Negative Normal [facility] Work Phone: pH (U) 6.0 [pH] Normal 5.0-7.5 [facility] Work Phone: Comment on above: PATIENT WAS FASTINGP ERFORMED BY: [address] [id number] BY: [facility] Aehfgl6615 Dobbs RoadDublin [place] [id number] pH Test strip (U) 6.0 [pH] Normal 5.0-7.5 Compreh ensive Internal Medicine Work Phone: Protein Ql (U) Negative Normal Comprehens cl [facility] Medicine Work Phone: Comment on above: PATIENT WAS FASTINGP ERFORMED BY: Lab[address] [id number] BY: LETICIA [facility] Dvrjge9741 Dobbs RoadDublin [place] [id number] Protein Ql (U) Negative Normal Comprehens cl [facility]; [facility] Work Phone: Comment on above: PATIENT WAS FASTINGP ERFORMED BY: LabCo[address] [id number] BY: LETICIA [facility] Snucck9502 [address] RoadDublin [place] [id number] Protein Test strip Ql (U) Negative Normal [facility] Work Phone: Specific gravity Relative Density (U) 1.020 1 Normal 1.005-1.03 0 [facility] Work Phone: Comment on above: PATIENT WAS FASTINGP ERFORMED BY: Lab[address] [id number] BY: LETICIA [facility] Onqarm1182 [address] RoadDublin [place] [id number] Urobilinogen (U) [Mass/Vol] 0.2 mg/dL Normal 0.2-1.0 [facility]; [facility] Work Phone: Comment on above: PATIENT WAS FASTINGP ERFORMED BY: [employer]ThereRew[employer] [id number] BY: [facility] Omwhet3704 [address] RoadEcu Health Duplin Hospitalin [place] [id number] Urobilinogen Test strip mass conc (U) 0.2 mg/dL Normal 0.2-1.0 [facility] Work Phone: Comment on above: PATIENT WAS FASTINGP ERFORMED BY: Lab[address] [id number] BY: [facility] Jdujgb6355 [address] RoadDublin [place] [id number] CALCIFIDIOL (04160) VIT D 25 Ordered By: Costing Manager on 06-03-2017 25-Hydroxyvitamin D2+25-Hydroxyvitamin D3 mass conc 43.0 ng/mL Normal 30.0-100.0 [facility] Work Phone: Comment on above: Vitamin D deficiency has been defined by the [place] ofMedicine and an Endocrine Society practice guideline as alevel of serum 25-OH vitamin D less than 20 ng/mL (1,2).The Endocrine Society went on to further define vitamin Dinsufficiency as a level between 21 and 29 ng/mL (2).1. IOM ([place] of Medicine). 2010. Dietary reference intakes for calcium and D. [place]: The National Academies Press.2. Claudio MF, Kamilla ZIEGLER, Leonid RANDOLPH, et al. Evaluation, treatment, and prevention of vitamin D deficiency: an Endocrine Society clinical practice guideline. JCEM. 2010; 96(7):1911-30. PATIENT NOT FASTINGP ERFORMED BY: Zank[address] [place] [id number] PSA (PROSTATE SPECIFIC ANTIG EN) (V76.44)Ordered By: Costing Manager on 06-03-2017 Prostate specific Ag mass conc 1.5 ng/mL Normal 0.0-4.0 [facility] Work Phone: Comment on above: Justen ECLIA methodol ogy. .According to the [place] [employer], Serum PSA shoulddecrease and remain at undetectable levels after radicalprostatectomy. The AUA defines biochemical recurrence as an initialPSA value 0.2 ng/mL or greater followed by a subsequent confirmatoryPSA value 0.2 ng/mL or greater.Values obtained with different assay methods or kits cannot be usedinterchangeably. Results cannot be interpreted as absolute evidenceof the presence or absence of malignant disease. PATIENT NOT FASTINGP ERFORMED BY: Tackle Grab[address] [place] [id number] T3, FREE (TRIDOTHYRONINE) (8 6307)Ordered By: Costing Manager on 06-03-2017 T3 free mass conc 2.8 pg/mL Normal 2.0-4.4 [facility] Work Phone: Comment on above: PATIENT NOT FASTINGP ERFORMED BY: [employer] Tzqgkw[address] [facility] Hospitalblin [place] [id number] T4, FREE (THYROXINE) (97301) Ordered By: Costing Manager on 06-03-2017 T4 free mass conc 1.21 ng/dL Normal 0.82-1.77 Compreh ensive Internal Medicine Work Phone: Comment on above: PATIENT NOT FASTINGP ERFORMED BY: BeThereRewardsCo Hhoryk[address] [facility] Hospitalblin [place] [id number] TSH (74641)Ordered By: Ruba m Pearl Glue Operator on 06-03-2017 Thyrotropin Qn 4.390 {uIU/mL} Normal 0.450-4.50 0 [facility] Work Phone: Comment on above: PATIENT NOT FASTINGP ERFORMED BY: Spindle Pjkmtb[address] [facility] HospitalRECUPYLin [place] [id number] CALCIFEDIOL (78409)Ordered B y: Costing Manager on 05-31-2017 25-Hydroxyvitamin D2+25-Hydroxyvitamin D3 mass conc 45.2 ng/mL Normal 30.0-100.0 [facility] Work Phone: Comment on above: Vitamin D deficiency has been defined by the [place] of[place]icine and an Endocrine Society practice guideline as alevel of serum 25-OH vitamin D less than 20 ng/mL (1,2).The Endocrine Society went on to further define vitamin Dinsufficiency as a level between 21 and 29 ng/mL (2).1. IOM ([place] of Medicine). 2010. Dietary reference intakes for calcium and D. [place]: The National Academies Press.2. Claudio MF, Kamilla ZIEGLER, Leonid RANDOLPH, et al. Evaluation, treatment, and prevention of vitamin D deficiency: an Endocrine Society clinical practice guideline. JCEM. 2010; 96(7):1911-30. PATIENT WAS FASTINGP ERFORMED BY: [employer] LabStayNTouch Dtqiux7022 [facility] Systemin [place] [id number] CBC W/AUTO DIFF WBC (01606)O rdered By: Costing Manager on 05-31-2017 Basophils (Bld) [#/Vol] 0.0 {x10E3/uL} Normal 0.0-0.2 [facility] Work Phone: Comment on above: PATIENT WAS FASTINGP ERFORMED BY: LETICIA [facility] Wbuiup5598 [facility] [id number] Basophils (Bld) [#/Vol] 0.0 10*3/uL Normal 0.0-0.2 [facility]; [facility] Work Phone: Comment on above: PATIENT WAS FASTINGP ERFORMED BY: [facility] Vpycel1929 [address] [facility] [id number] Basophils Auto #/vol (Bld) 0.0 {x10E3/uL} Normal 0.0-0.2 [facility] Work Phone: Basophils/100 WBC (Bld) 1 % Normal C omprehensive Internal Medicine Work Phone: Comment on above: PATIENT WAS FASTINGP ERFORMED BY: LETICIA [facility]Saint [facility] Smlloh3952 [facility] [id number] Basophils/100 WBC Auto (Bld) 1 % Normal [facility] Work Phone: Eosinophils (Bld) [#/Vol] 0.3 {x10E3/uL} Normal 0.0-0.4 [facility] Work Phone: Comment on above: PATIENT WAS FASTINGP ERFORMED BY: LETICIA [facility] Mavvld1127 [facility] [id number] Eosinophils (Bld) [#/Vol] 0.3 10*3/uL Normal 0.0-0.4 [facility]; [facility] Work Phone: Comment on above: PATIENT WAS FASTINGP ERFORMED BY: [facility] Twmfnc[address]9 [address] [facility] [id number] Eosinophils Auto #/vol (Bld) 0.3 {x10E3/uL} Normal 0.0-0.4 [facility] Work Phone: Eosinophils/100 WBC (Bld) 5 % Normal [facility] Work Phone: Comment on above: PATIENT WAS FASTINGP ERFORMED BY: LETICIA [facility] Ypnhlh5328 [facility] [id number] Eosinophils/100 WBC Auto (Bld) 5 % Normal [facility] Work Phone: Erythrocyte distribution width (RBC) [Ratio] 15.2 % Normal 12.3-15.4 [facility] Work Phone: Comment on above: PATIENT WAS FASTINGP ERFORMED BY: [place] [id number] [facility] [id number] Erythrocyte distribution width Auto Ratio (RBC) 15.2 % Normal 12.3-15.4 [facility] Work Phone: Hematocrit (Bld) [Volume fraction] 43.3 % Normal 37.5-51.0 [facility] Work Phone: Comment on above: PATIENT WAS FASTINGP ERFORMED BY: LETICIA [facility] Eksbty3326 [facility] [id number] Hematocrit Auto Volume Fraction (Bld) 43.3 % Normal 37.5-51.0 [facility] Work Phone: Hemoglobin mass conc (Bld) 14.6 g/dL Normal 13.0-17.7 [facility] Work Phone: Comment on above: PATIENT WAS FASTINGP ERFORMED BY: LETICIA JeromeSaint [facility] Egwpzn9320 [facility] [id number] Immature granulocytes #/vol (Bld) 0.0 {x10E3/uL} Normal 0.0-0.1 [facility] Work Phone: Comment on above: PATIENT WAS FASTINGP ERFORMED BY: [place] [id number] [facility] [id number] Immature granulocytes (Bld) [#/Vol] 0.0 10*3/uL Normal 0.0-0.1 [facility]; [facility] Work Phone: Comment on above: PATIENT WAS FASTINGP ERFORMED BY: [place] [id number] [facility] [id number] Immature granulocytes/100 WBC (Bld) 0 % Normal [facility] Work Phone: Comment on above: PATIENT WAS FASTINGP ERFORMED BY: [facility] [place]6370 [facility] [id number] Lymphocytes (Bld) [#/Vol] 1.8 {x10E3/uL} Normal 0.7-3.1 [facility] Work Phone: Comment on above: PATIENT WAS FASTINGP ERFORMED BY: [place] [id number] [facility] [id number] Lymphocytes (Bld) [#/Vol] 1.8 10*3/uL Normal 0.7-3.1 [facility]; [facility] Work Phone: Comment on above: PATIENT WAS FASTINGP ERFORMED BY: LETICIA [place] [id number] [facility] [id number] Lymphocytes Auto #/vol (Bld) 1.8 {x10E3/uL} Normal 0.7-3.1 [facility] Work Phone: Lymphocytes/100 WBC (Bld) 27 % Normal [facility] Work Phone: Comment on above: PATIENT WAS FASTINGP ERFORMED BY: [place] [id number] [facility] [id number] Lymphocytes/100 WBC Auto (Bld) 27 % Normal [facility] Work Phone: MCH (RBC) [Entitic mass] 29.4 pg Normal 26.6-33.0 [facility] Work Phone: Comment on above: PATIENT WAS FASTINGP ERFORMED BY: [place] [id number] [facility] [id number] MCH Auto Entitic mass (RBC) 29.4 pg Normal 26.6-33.0 [facility] Work Phone: MCHC (RBC) [Mass/Vol] 33.7 g/dL Normal 31.5-35.7 [facility] prehensive Internal Medicine Work Phone: Comment on above: PATIENT WAS FASTINGP ERFORMED BY: [place] [id number] [facility] [id number] MCHC Auto mass conc (RBC) 33.7 g/dL Normal 31.5-35.7 [facility] Work Phone: MCV (RBC) [Entitic vol] 87 fL Normal 79-97 C omprehensive Internal Medicine Work Phone: Comment on above: PATIENT WAS FASTINGP ERFORMED BY: LabH[facility]6[address] [facility]in [place] [id number] MCV Auto Entitic volume (RBC) 87 fL Normal 79-97 [facility] Work Phone: Monocytes (Bld) [#/Vol] 0.6 {x10E3/uL} Normal 0.1-0.9 [facility] Work Phone: Comment on above: PATIENT WAS FASTINGP ERFORMED BY: [facility]6370 [facility] [id number] Monocytes (Bld) [#/Vol] 0.6 10*3/uL Normal 0.1-0.9 [facility]; [facility] Work Phone: Comment on above: PATIENT WAS FASTINGP ERFORMED BY: [facility] [facility] [id number] Monocytes Auto #/vol (Bld) 0.6 {x10E3/uL} Normal 0.1-0.9 [facility] Work Phone: Monocytes/100 WBC (Bld) 9 % Normal C ompfort hamilton hospitalensive Internal Medicine Work Phone: Comment on above: PATIENT WAS FASTINGP ERFORMED BY: LabH[facility] Hospital6370 [address] [facility] [id number] Monocytes/100 WBC Auto (Bld) 9 % Normal [facility] Work Phone: Neutrophils (Bld) [#/Vol] 3.8 {x10E3/uL} Normal 1.4-7.0 [facility] Work Phone: Comment on above: PATIENT WAS FASTINGP ERFORMED BY: [facility] Wdjlqt9310 [address] [facility] [id number] Neutrophils (Bld) [#/Vol] 3.8 10*3/uL Normal 1.4-7.0 [facility]; [facility] Work Phone: Comment on above: PATIENT WAS FASTINGP ERFORMED BY: LETICIA [facility] Nmcbnd0052 [address] RoadDublin [place] [id number] Neutrophils Auto #/vol (Bld) 3.8 {x10E3/uL} Normal 1.4-7.0 [facility] Work Phone: Neutrophils/100 WBC (Bld) 58 % Normal [facility] Work Phone: Comment on above: PATIENT WAS FASTINGP ERFORMED BY: LETICIA [facility] Ncpprr3295 [address] RoadDublin [place] [id number] Neutrophils/100 WBC Auto (Bld) 58 % Normal [facility] Work Phone: Platelets (Bld) [#/Vol] 169 {x10E3/uL} Normal 150-379 [facility] Work Phone: Comment on above: PATIENT WAS FASTINGP ERFORMED BY: LETICIA [facility] Uiwvce3597 [address] RoadDublin [place] [id number] Platelets (Bld) [#/Vol] 169 10*3/uL Normal 150-379 [facility]; [facility] Work Phone: Comment on above: PATIENT WAS FASTINGP ERFORMED BY: CB [facility] Chwlxc3372 [address] RoadDublin [place] [id number] Platelets Auto #/vol (Bld) 169 {x10E3/uL} Normal 150-379 [facility] Work Phone: RBC (Bld) [#/Vol] 4.97 {x10E6/uL} Normal 4.14-5.80 [facility] Internal Medicine Work Phone: Comment on above: PATIENT WAS FASTINGP ERFORMED BY: CB [facility] Imocuz0658 [address] RoadDublin [place] [id number] RBC (Bld) [#/Vol] 4.97 10*6/uL Normal 4.14-5.80 [facility] Internal Medicine; [facility] Work Phone: Comment on above: PATIENT WAS FASTINGP ERFORMED BY: LETICIA [facility] Cyzsmr[address] [facility]in [place] [id number] RBC Auto #/vol (Bld) 4.97 {x10E6/uL} Normal 4.14-5.80 [facility] Work Phone: WBC (Bld) [#/Vol] 6.6 {x10E3/uL} Normal 3.4-10.8 [facility] prehensive Internal Medicine Work Phone: Comment on above: PATIENT WAS FASTINGP ERFORMED BY: [facility] Gwbnak0471 [facility] [id number] WBC (Bld) [#/Vol] 6.6 10*3/uL Normal 3.4-10.8 [facility] Internal Medicine; [facility] Work Phone: Comment on above: PATIENT WAS FASTINGP ERFORMED BY: LabH[facility]6370 [facility] [id number] WBC Auto #/vol (Bld) 6.6 {x10E3/uL} Normal 3.4-10.8 [facility] Work Phone: LIPID PANEL (57810)Ordered B y: 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 on 05-31-2017 Cholesterol in HDL mass conc 57 mg/dL Normal [facility] Work Phone: Comment on above: PATIENT WAS FASTINGP ERFORMED BY: [facility] Rrbbzt6574 [facility] [id number] Cholesterol in LDL mass conc 105 mg/dL Abnormal 0-99 [facility] Work Phone: Comment on above: PATIENT WAS FASTINGP ERFORMED BY: LabG[employer] Fublix7611 [facility] [id number] Cholesterol in LDL/Cholesterol in HDL mass ratio 1.8 {ratio_units} Normal 0.0-3.6 [facility] Work Phone: Comment on above: LDL/HDL Ratio Men Wo men 1/2 Avg.Risk 1.0 1.5 Avg.Risk 3.6 3.2 2X Avg.Risk 6.2 5.0 3X Avg.Risk 8.0 6.1 PATIENT WAS FASTINGP ERFORMED BY: LETICIA LabCosandra Mojrcn9678 [facility] [id number] Cholesterol in VLDL mass conc 14 mg/dL Normal 5-40 [facility] Work Phone: Comment on above: PATIENT WAS FASTINGP ERFORMED BY: LETICIA LabCosandra CastilloGxbdkr0274 [address] [facility] [id number] Cholesterol mass conc 176 mg/dL Normal 100-199 Com prehensive Internal Medicine Work Phone: Comment on above: PATIENT WAS FASTINGP ERFORMED BY: LETICIA LabCosandra Ihmdad9169 [facility] [id number] Triglyceride mass conc 70 mg/dL Normal 0-149 Co mprehensive Internal Medicine Work Phone: Comment on above: PATIENT WAS FASTINGP ERFORMED BY: LETICIA LabMj CastilloXznngc5472 [facility] [id number] METABOLIC PANEL, COMPREHENSI VE (11922)Ordered By: Costing Manager on 05-31-2017 Albumin mass conc 4.3 g/dL Normal 3.5-4.8 Compreh ensive Internal Medicine Work Phone: Comment on above: PATIENT WAS FASTINGP ERFORMED BY: LETICIA LabMj CastilloVlekim5690 [facility] [id number] Albumin/Globulin mass ratio 2.0 {ratio} Normal 1.2-2.2 [facility] Work Phone: Comment on above: PATIENT WAS FASTINGP ERFORMED BY: LETICIA [facility] Dnxxwi5112 [facility] [id number] ALP [Catalytic activity/Vol] 75 U/L Normal 39-117 [facility]; [facility] Work Phone: Comment on above: PATIENT WAS FASTINGP ERFORMED BY: LETICIA [facility] Lnzepy4492 [facility] [id number] ALP enzyme act/vol 75 [iU]/L Normal 39-117 Compre hensive Internal Medicine Work Phone: Comment on above: PATIENT WAS FASTINGP ERFORMED BY: LETICIA LabCosandra CastilloGgegxw8681 [address] RoadDublin [place] [id number] ALT [Catalytic activity/Vol] 23 U/L Normal 0-44 [facility]; [facility] Internal Medicine Work Phone: Comment on above: PATIENT WAS FASTINGP ERFORMED BY: LETICIA LabMj CastilloPvklng4420 [address] RoadDublin [place] [id number] ALT enzyme act/vol 23 [iU]/L Normal 0-44 [facility] Internal Medicine Work Phone: Comment on above: PATIENT WAS FASTINGP ERFORMED BY: LETICIA LabCosandra CastilloFiiylz6719 [address] RoadDublin [place] [id number] AST [Catalytic activity/Vol] 23 U/L Normal 0-40 [facility] Internal Medicine; [facility] Internal Medicine Work Phone: Comment on above: PATIENT WAS FASTINGP ERFORMED BY: LETICIA Castillolin6370 [address] RoadDublin [place] [id number] AST enzyme act/vol 23 [iU]/L Normal 0-40 [facility] Internal Medicine Work Phone: Comment on above: PATIENT WAS FASTINGP ERFORMED BY: LETICIA Castillolin6370 [address] RoadDublin [place] [id number] Bilirubin mass conc 0.4 mg/dL Normal 0.0-1.2 [facility] Internal Medicine Work Phone: Comment on above: PATIENT WAS FASTINGP ERFORMED BY: LETICIA LabMj CastilloLanepf0059 [address] RoadDublin [place] [id number] Calcium mass conc 9.7 mg/dL Normal 8.6-10.2 [facility] Internal Medicine Work Phone: Comment on above: PATIENT WAS FASTINGP ERFORMED BY: LETICIA LabCosandra CastilloHefrqj6850 [address] RoadDublin [place] [id number] Chloride molar conc 106 mmol/L Normal 96-106 Compr [facility] Internal Medicine Work Phone: Comment on above: PATIENT WAS FASTINGP ERFORMED BY: LETICIA LabMj CastilloKakkaz1179 [address] RoadDublin [place] [id number] CO2 molar conc 23 mmol/L Normal 18-29 Comprehens cl Internal Medicine Work Phone: Comment on above: PATIENT WAS FASTINGP ERFORMED BY: LETICIA [facility] Bcqjxg4906 [facility] [id number] Creatinine mass conc 1.05 mg/dL Normal 0.76-1.27 Comp rehensive Internal Medicine Work Phone: Comment on above: PATIENT WAS FASTINGP ERFORMED BY: LETICIA [facility] Kcqwql6224 [address] [facility] [id number] GFR/1.73 sq M predicted among blacks CKD-EPI vol rate/area (S/P/Bld) 83 mL/min/1.73 Normal Comprehe nsive Internal Medicine Work Phone: Comment on above: PATIENT WAS FASTINGP ERFORMED BY: LETICIA [facility] Rzlpqv6232 [facility] [id number] GFR/1.73 sq M predicted among non-blacks CKD-EPI vol rate/area (S/P/Bld) 72 mL/min/1.73 Normal [facility] Work Phone: Comment on above: PATIENT WAS FASTINGP ERFORMED BY: LETICIA [facility] Lazuwm2132 [facility] [id number] Globulin (S) [Mass/Vol] 2.2 g/dL Normal 1.5-4.5 C omprehensive Internal Medicine Work Phone: Comment on above: PATIENT WAS FASTINGP ERFORMED BY: LETICIA [facility] Sqatqn7425 [facility] [id number] Globulin Calculated mass conc (S) 2.2 g/dL Normal 1.5-4.5 [facility] Work Phone: Glucose mass conc 84 mg/dL Normal 65-99 Compreh ensive Internal Medicine Work Phone: Comment on above: PATIENT WAS FASTINGP ERFORMED BY: LETICIA [facility] Izipzw0205 [facility] [id number] Potassium molar conc 4.7 mmol/L Normal 3.5-5.2 Comp rehensive Internal Medicine Work Phone: Comment on above: PATIENT WAS FASTINGP ERFORMED BY: LETICIA LabMj CastilloWjicvn5176 [address] RoadDublin [place] [id number] Protein mass conc 6.5 g/dL Normal 6.0-8.5 Compreh ensive Internal Medicine Work Phone: Comment on above: PATIENT WAS FASTINGP ERFORMED BY: LETICIA LabCosandra CastilloWrkzxf1765 [address] RoadDublin [place] [id number] Sodium molar conc 145 mmol/L Abnormal 134-144 Compreh ensive Internal Medicine Work Phone: Comment on above: PATIENT WAS FASTINGP ERFORMED BY: LETICIA LabMj CastilloFxqbxl1862 [address] RoadDublin [place] [id number] Urea nitrogen mass conc 25 mg/dL Normal 8-27 C omprehensive Internal Medicine Work Phone: Comment on above: PATIENT WAS FASTINGP ERFORMED BY: LETICIA Dougherty6[address] [facility] [id number] Urea nitrogen/Creatinine mass ratio 24 mg/mg Normal 10-24 [facility] Work Phone: Comment on above: PATIENT WAS FASTINGP ERFORMED BY: LETICIA Castillolin6370 DobbsPrest[facility] Memorial Hospitalin [place] [id number] MICROALBUMINOrdered By: Syst em Pearl Glue Operator on 05-31-2017 Albumin DL <= 20 mg/L mass conc (U) 5.4 ug/mL Normal [facility] Work Phone: Comment on above: PATIENT WAS FASTINGP ERFORMED BY: LETICIA LabMj CastilloBlpemk4545 [address] [facility]in [place] [id number] Albumin/Creatinine mass ratio (U) 7.7 {mg/g_creat} Normal 0.0-30.0 [facility] Work Phone: Comment on above: PATIENT WAS FASTINGP ERFORMED BY: LETICIA LabMj CastilloXhsocv3993 [address] [facility] Hospitalblin [place] [id number] Creatinine mass conc (U) 69.7 mg/dL Normal [facility] Work Phone: Comment on above: PATIENT WAS FASTINGP ERFORMED BY: LETICIA LabMj CastilloWgtphq6329 [address] [facility]in [place] [id number] Microscopic ExaminationOrder ed By: Costing Manager on 05-31-2017 Bacteria LM.HPF #/area (Urine sed) None seen Normal [facility] Work Phone: Comment on above: PATIENT WAS FASTINGP ERFORMED BY: LETICIA [facility] Noiqsl7785 [address] [facility]in [place] [id number] Epithelial cells LM.HPF #/area (Urine sed) None seen Normal 0 - 10 [facility] Work Phone: Comment on above: PATIENT WAS FASTINGP ERFORMED BY: LETICIA LabSaint [facility] Golrcn6344 [address] [facility]in [place] [id number] Mucus LM Ql (Urine sed) Present Normal C omprehensive Internal Medicine Work Phone: Mucus Ql (Urine sed) Present Normal Comp rehensive Internal Medicine Work Phone: Comment on above: PATIENT WAS FASTINGP ERFORMED BY: LETICIA LabSaint [facility] Fgaigv2395 [address] [facility] [id number] RBC LM.HPF #/area (Urine sed) 0-2 Normal 0 - 2 [facility] Work Phone: Comment on above: PATIENT WAS FASTINGP ERFORMED BY: LETICIA LabCosandra Xegzju7520 [facility] [id number] WBC LM.HPF #/area (Urine sed) 0-5 Normal 0 - 5 [facility] Work Phone: Comment on above: PATIENT WAS FASTINGP ERFORMED BY: LETICIA LabCo Rqbgmc8765 [facility] [id number] T3, FREE (TRIDOTHYRONINE) (0 1686)Ordered By: Costing Manager on 05-31-2017 T3 free mass conc 2.8 pg/mL Normal 2.0-4.4 Compreh ensive Internal Medicine Work Phone: Comment on above: PATIENT WAS FASTINGP ERFORMED BY: LETICIA [facility] Joqzvb4869 [address] [facility]in [place] [id number] T4, FREE (THYROXINE) ([id number]) Ordered By: Costing Manager on 05-31-2017 T4 free mass conc 1.16 ng/dL Normal 0.82-1.77 Compreh ensive Internal Medicine Work Phone: Comment on above: PATIENT WAS FASTINGP ERFORMED BY: LETICIA LabMj CastilloEsuzrs7801 [address] RoadDublin [place] [id number] TSH ([id number])Ordered By: Syste m Pearl Glue Operator on 05-31-2017 Thyrotropin Qn 4.680 {uIU/mL} Abnormal 0.450-4.50 0 [facility] Work Phone: Comment on above: PATIENT WAS FASTINGP ERFORMED BY: LETICIA LabCosandra CastilloCkppah8220 [address] RoadDublin [place] [id number]; fu 3- KF URINALYSIS, W/ MICRO ([id number]) Ordered By: Costing Manager on 05-31-2017 Appearance Nom (U) Clear Normal Compre hensive Internal Medicine Work Phone: Comment on above: PATIENT WAS FASTINGP ERFORMED BY: LETICIA LabMj CastilloPbymtz7226 [address] RoadDublin [place] [id number] Bilirubin Ql (U) Negative Normal Comprehe nsive Internal Medicine Work Phone: Comment on above: PATIENT WAS FASTINGP ERFORMED BY: LETICIA LabMj CastilloRaypbs8825 [address] RoadDublin [place] [id number] Bilirubin Ql (U) Negative Normal Comprehe nsive Internal Medicine; [facility] Work Phone: Comment on above: PATIENT WAS FASTINGP ERFORMED BY: LETICIA LabCosandra Sncshd2383 [address] RoadDublin [place] [id number] Color Nom (U) Yellow Normal Comprehensi ve Internal Medicine Work Phone: Comment on above: PATIENT WAS FASTINGP ERFORMED BY: LETICIA LabCosandra Uxsxct9029 [address] RoadDublin [place] [id number] Glucose Ql (U) Negative Normal Comprehens cl [facility] Medicine Work Phone: Comment on above: PATIENT WAS FASTINGP ERFORMED BY: LETICIA [facility] Fztjzg7603 [address] RoadDublin [place] [id number] Glucose Ql (U) Negative Normal Comprehens cl [facility] Medicine; [facility] Work Phone: Comment on above: PATIENT WAS FASTINGP ERFORMED BY: LETICIA Dougherty6370 [address] RoadDublin [place] [id number] Hemoglobin Ql (U) Negative Normal Compreh ensive Internal Medicine Work Phone: Comment on above: PATIENT WAS FASTINGP ERFORMED BY: LETICIA Castillolin6370 [address] RoadDublin [place] [id number] Hemoglobin Ql (U) Negative Normal Compreh ensive Internal Medicine; [facility] Work Phone: Comment on above: PATIENT WAS FASTINGP ERFORMED BY: LETICIA Castillolin6370 [address] RoadDublin [place] [id number] Hemoglobin Test strip Ql (U) Negative Normal [facility] Work Phone: Ketones Ql (U) Negative Normal Comprehens cl [facility] Work Phone: Comment on above: PATIENT WAS FASTINGP ERFORMED BY: LETICIA Castillolin6370 [address] RoadDublin [place] [id number] Ketones Ql (U) Negative Normal Comprehens cl [facility] Medicine; [facility] Work Phone: Comment on above: PATIENT WAS FASTINGP ERFORMED BY: LETICIA Castillolin6370 [address] RoadDublin [place] [id number] Leukocyte esterase Test strip Ql (U) Negative Normal [facility] Work Phone: Comment on above: PATIENT WAS FASTINGP ERFORMED BY: LETICIA Castillolin6370 [address] RoadDublin [place] [id number] Leukocyte esterase Test strip Ql (U) Negative Normal [facility]; [facility] Work Phone: Comment on above: PATIENT WAS FASTINGP ERFORMED BY: LETICIA LabMj CastilloDiylll7073 [address] RoadDublin [place] [id number] Microscopic observation LM Nom (Urine sed) See below: Normal [facility] Work Phone: Comment on above: Microscopic was kiana cated and was performed. PATIENT WAS FASTINGP ERFORMED BY: LETICIA LabMj CastilloWuride2661 [address] RoadDublin [place] [id number] Microscopic observation LM Nom (Urine sed) MICRON Normal [facility] Work Phone: Comment on above: Microscopic follows if indicated. PATIENT WAS FASTINGP ERFORMED BY: LETICIA Castillolin6370 [facility] [id number] Nitrite Ql (U) Negative Normal Comprehens cl [facility] Work Phone: Comment on above: PATIENT WAS FASTINGP ERFORMED BY: LETICIA Castillolin6370 [facility] [id number] Nitrite Ql (U) Negative Normal Comprehens cl [facility]; [facility] Work Phone: Comment on above: PATIENT WAS FASTINGP ERFORMED BY: LETICIA Castillolin6370 [facility] [id number] Nitrite Test strip Ql (U) Negative Normal [facility] Work Phone: pH (U) 6.0 [pH] Normal 5.0-7.5 [facility] Work Phone: Comment on above: PATIENT WAS FASTINGP ERFORMED BY: LETICIA Castillolin6370 [facility] [id number] pH Test strip (U) 6.0 [pH] Normal 5.0-7.5 Compreh ensive Internal Medicine Work Phone: Protein Ql (U) Negative Normal Comprehens cl [facility] Work Phone: Comment on above: PATIENT WAS FASTINGP ERFORMED BY: LETICIA aCstillolin6370 [facility] [id number] Protein Ql (U) Negative Normal Comprehens cl [facility]; [facility] Work Phone: Comment on above: PATIENT WAS FASTINGP ERFORMED BY: LETICIA Castillolin6370 [facility] [id number] Protein Test strip Ql (U) Negative Normal [facility] Work Phone: Specific gravity Relative Density (U) 1.019 1 Normal 1.005-1.03 0 [facility] Work Phone: Comment on above: PATIENT WAS FASTINGP ERFORMED BY: LETICIA LabTomás Gkdzzr7042 [facility]in [place] [id number] Urobilinogen (U) [Mass/Vol] 0.2 mg/dL Normal 0.2-1.0 [facility]; [facility] Work Phone: Comment on above: PATIENT WAS FASTINGP ERFORMED BY: [facility] Tayziy6565 [address] [facility]in [place] [id number] Urobilinogen Test strip mass conc (U) 0.2 mg/dL Normal 0.2-1.0 [facility] Work Phone: Comment on above: PATIENT WAS FASTINGP ERFORMED BY: LETICIA LabTomás Aazets0124 [facility] [id number] T3, FREE (TRIDOTHYRONINE) (1 3603)Ordered By: Costing Manager on 02-22-2017 T3 free mass conc 3.0 pg/mL Normal 2.0-4.4 Compreh ensive Internal Medicine Work Phone: Comment on above: PATIENT NOT FASTINGP ERFORMED BY: [facility] Lpvsxq6906 [facility] [id number] T4, TOTAL ([id number])Ordered By: Costing Manager on 02-22-2017 T4 mass conc 7.0 ug/dL Normal 4.5-12.0 Comprehensiv e Internal Medicine Work Phone: Comment on above: PATIENT NOT FASTINGP ERFORMED BY: [facility] Knvofh4831 [address] [facility]in [place] [id number] TSH (THYROID STIMULATING HOR MAYITO) (10307)Ordered By: Costing Manager on 02-22-2017 Thyrotropin Qn 4.820 {uIU/mL} Abnormal 0.450-4.50 0 [facility] Work Phone: Comment on above: PATIENT NOT FASTINGP ERFORMED BY: LETICIA LabSaint [facility] Cpzglg4595 Dob[address] Roadblin [place] [id number] Anti-TPO Antibody (45274)Ord ered By: Costing Manager on 10-21-2016 Thyroperoxidase Ab Qn 8 {IU/mL} Normal 0-34 Com prehensive Internal Medicine Work Phone: Comment on above: PATIENT NOT FASTINGP ERFORMED BY: LETICIA LabCosandra DoughertyBegqna6154 [address] RoadDublin [place] [id number] TPO Ab Qn 8 [IU]/mL Normal 0-34 [facility]; [facility] Work Phone: Comment on above: PATIENT NOT FASTINGP ERFORMED BY: LETICIA [facility] Qknuus4387 [address] RoadDublin [place] [id number] T3, FREE (TRIDOTHYRONINE) (3 8757)Ordered By: Costing Manager on 10-21-2016 T3 free mass conc 2.7 pg/mL Normal 2.0-4.4 Compreh ensive Internal Medicine Work Phone: Comment on above: PATIENT NOT FASTINGP ERFORMED BY: LETICIA [facility] Yghdiy5802 [address] RoadDublin [place] [id number] T4, FREE (THYROXINE) (90297) Ordered By: Costing Manager on 10-21-2016 T4 free mass conc 1.07 ng/dL Normal 0.82-1.77 Compreh ensive Internal Medicine Work Phone: Comment on above: PATIENT NOT FASTINGP ERFORMED BY: LETICIA [facility] Effzbe6693 [address] RoadDublin [place] [id number] TSH (80696)Ordered By: Syste m Pearl Glue Operator on 10-21-2016 Thyrotropin Qn 4.670 {uIU/mL} Abnormal 0.450-4.50 0 [facility] Work Phone: Comment on above: PATIENT NOT FASTINGP ERFORMED BY: CB [facility] Gzutwz2331 [address] RoadDublin [place] [id number] CALCIFIDIOL (21278) VIT D 25 Ordered By: Costing Manager on 07-13-2016 25-Hydroxyvitamin D2+25-Hydroxyvitamin D3 mass conc 71.1 ng/mL Normal 30.0-100.0 [facility] Work Phone: Comment on above: Vitamin D deficiency has been defined by the [place] ofMedicine and an Endocrine Society practice guideline as alevel of serum 25-OH vitamin D less than 20 ng/mL (1,2).The Endocrine Society went on to further define vitamin Dinsufficiency as a level between 21 and 29 ng/mL (2).1. IOM ([place] of Medicine). 2010. Dietary reference intakes for calcium and D. [place]: The National Academies Press.2. Claudio MF, Kamilla ZIEGLER, Leonid RANDOLPH, et al. Evaluation, treatment, and prevention of vitamin D deficiency: an Endocrine Society clinical practice guideline. JCEM. 2010; 96(7):1911-30. PATIENT WAS FASTINGP ERFORMED BY: [place]bl[place] [id number] CBC W/AUTO DIFF WBC (54352)O rdered By: Costing Manager on 07-13-2016 Basophils (Bld) [#/Vol] 0.0 {x10E3/uL} Normal 0.0-0.2 [facility] Work Phone: Comment on above: PATIENT WAS FASTINGP ERFORMED BY: Zank70 wmblyblin [place] [id number] Basophils (Bld) [#/Vol] 0.0 10*3/uL Normal 0.0-0.2 [facility]; [facility] Work Phone: Comment on above: PATIENT WAS FASTINGP ERFORMED BY: Zank70 wmblyin [place] [id number] Basophils Auto #/vol (Bld) 0.0 {x10E3/uL} Normal 0.0-0.2 [facility] Work Phone: Basophils/100 WBC (Bld) 1 % Normal C omprehensive Internal Medicine Work Phone: Comment on above: PATIENT WAS FASTINGP ERFORMED BY: Zank70 wmblyin [place] [id number] Basophils/100 WBC Auto (Bld) 1 % Normal [facility] Work Phone: Eosinophils (Bld) [#/Vol] 0.3 {x10E3/uL} Normal 0.0-0.4 [facility] Work Phone: Comment on above: PATIENT WAS FASTINGP ERFORMED BY: LETICIA LabCo Qgrqbs7316 [address] [facility] [id number] Eosinophils (Bld) [#/Vol] 0.3 10*3/uL Normal 0.0-0.4 [facility]; [facility] Work Phone: Comment on above: PATIENT WAS FASTINGP ERFORMED BY: LETICIA LabTomás Ieinge3832 [address] [facility] [id number] Eosinophils Auto #/vol (Bld) 0.3 {x10E3/uL} Normal 0.0-0.4 [facility] Work Phone: Eosinophils/100 WBC (Bld) 5 % Normal [facility] Work Phone: Comment on above: PATIENT WAS FASTINGP ERFORMED BY: LETICIA LabMj CastilloWgmkqq6049 [facility] [facility] [id number] Eosinophils/100 WBC Auto (Bld) 5 % Normal [facility] Work Phone: Erythrocyte distribution width (RBC) [Ratio] 14.6 % Normal 12.3-15.4 [facility] Work Phone: Comment on above: PATIENT WAS FASTINGP ERFORMED BY: LETICIA LabMj CastilloSaivzr1735 [facility] [id number] Erythrocyte distribution width Auto Ratio (RBC) 14.6 % Normal 12.3-15.4 [facility] Work Phone: Hematocrit (Bld) [Volume fraction] 44.6 % Normal 37.5-51.0 [facility] Work Phone: Comment on above: PATIENT WAS FASTINGP ERFORMED BY: LETICIA LabCo Qjtqek1817 [address] [facility] [id number] Hematocrit Auto Volume Fraction (Bld) 44.6 % Normal 37.5-51.0 [facility] Work Phone: Hemoglobin mass conc (Bld) 15.2 g/dL Normal 12.6-17.7 [facility] Work Phone: Comment on above: PATIENT WAS FASTINGP ERFORMED BY: LETICIA [facility] Dfqael7372 [facility] [id number] Immature granulocytes #/vol (Bld) 0.0 {x10E3/uL} Normal 0.0-0.1 [facility] Work Phone: Comment on above: PATIENT WAS FASTINGP ERFORMED BY: LETICIA JeromeSaint [facility] Maisqj3473 [facility] [id number] Immature granulocytes (Bld) [#/Vol] 0.0 10*3/uL Normal 0.0-0.1 [facility]; [facility] Work Phone: Comment on above: PATIENT WAS FASTINGP ERFORMED BY: [facility] Dvbjgw4769 [facility] [id number] Immature granulocytes/100 WBC (Bld) 0 % Normal [facility] Work Phone: Comment on above: PATIENT WAS FASTINGP ERFORMED BY: [facility] Tcsega4679 [facility] [id number] Lymphocytes (Bld) [#/Vol] 1.6 {x10E3/uL} Normal 0.7-3.1 [facility] Work Phone: Comment on above: PATIENT WAS FASTINGP ERFORMED BY: [facility] Bcvqgv1261 [facility] [id number] Lymphocytes (Bld) [#/Vol] 1.6 10*3/uL Normal 0.7-3.1 [facility]; [facility] Work Phone: Comment on above: PATIENT WAS FASTINGP ERFORMED BY: [place] [id number] [facility] [id number] Lymphocytes Auto #/vol (Bld) 1.6 {x10E3/uL} Normal 0.7-3.1 [facility] Work Phone: Lymphocytes/100 WBC (Bld) 25 % Normal [facility] Work Phone: Comment on above: PATIENT WAS FASTINGP ERFORMED BY: [facility] Nbugmx4193 [address] [facility] [id number] Lymphocytes/100 WBC Auto (Bld) 25 % Normal [facility] Work Phone: MCH (RBC) [Entitic mass] 29.0 pg Normal 26.6-33.0 [facility] Internal Medicine Work Phone: Comment on above: PATIENT WAS FASTINGP ERFORMED BY: LETICIA [facility] Daxowe7645 [facility] [id number] MCH Auto Entitic mass (RBC) 29.0 pg Normal 26.6-33.0 [facility] Internal Medicine Work Phone: MCHC (RBC) [Mass/Vol] 34.1 g/dL Normal 31.5-35.7 [facility] Internal Medicine Work Phone: Comment on above: PATIENT WAS FASTINGP ERFORMED BY: LETICIA [facility] Szawbp1929 [facility] [id number] MCHC Auto mass conc (RBC) 34.1 g/dL Normal 31.5-35.7 [facility] Internal Medicine Work Phone: MCV (RBC) [Entitic vol] 85 fL Normal 79-97 C [facility] Internal Medicine Work Phone: Comment on above: PATIENT WAS FASTINGP ERFORMED BY: [facility] [place]6370 [facility] [id number] MCV Auto Entitic volume (RBC) 85 fL Normal 79-97 [facility] Internal Medicine Work Phone: Monocytes (Bld) [#/Vol] 0.6 {x10E3/uL} Normal 0.1-0.9 [facility] Internal Medicine Work Phone: Comment on above: PATIENT WAS FASTINGP ERFORMED BY: [facility]6370 [facility] [id number] Monocytes (Bld) [#/Vol] 0.6 10*3/uL Normal 0.1-0.9 [facility] Internal Medicine; [facility] Work Phone: Comment on above: PATIENT WAS FASTINGP ERFORMED BY: [facility]6370 [facility] [id number] Monocytes Auto #/vol (Bld) 0.6 {x10E3/uL} Normal 0.1-0.9 [facility] Work Phone: Monocytes/100 WBC (Bld) 9 % Normal C omprehensive Internal Medicine Work Phone: Comment on above: PATIENT WAS FASTINGP ERFORMED BY: [facility]6[address] [facility] [facility] [place] [id number] Monocytes/100 WBC Auto (Bld) 9 % Normal [facility] Work Phone: Neutrophils (Bld) [#/Vol] 3.7 {x10E3/uL} Normal 1.4-7.0 [facility] Work Phone: Comment on above: PATIENT WAS FASTINGP ERFORMED BY: [place] [id number] [facility] [id number] Neutrophils (Bld) [#/Vol] 3.7 10*3/uL Normal 1.4-7.0 [facility]; [facility] Work Phone: Comment on above: PATIENT WAS FASTINGP ERFORMED BY: [place] [id number] [facility] [id number] Neutrophils Auto #/vol (Bld) 3.7 {x10E3/uL} Normal 1.4-7.0 [facility] Work Phone: Neutrophils/100 WBC (Bld) 60 % Normal [facility] Work Phone: Comment on above: PATIENT WAS FASTINGP ERFORMED BY: [place] [id number] [facility] [id number] Neutrophils/100 WBC Auto (Bld) 60 % Normal [facility] Work Phone: Platelets (Bld) [#/Vol] 178 {x10E3/uL} Normal 150-379 [facility] Work Phone: Comment on above: PATIENT WAS FASTINGP ERFORMED BY: [facility]6370 [facility] [id number] Platelets (Bld) [#/Vol] 178 10*3/uL Normal 150-379 [facility]; [facility] Work Phone: Comment on above: PATIENT WAS FASTINGP ERFORMED BY: LETICIA LabCo Auqekp9347 [facility] [id number] Platelets Auto #/vol (Bld) 178 {x10E3/uL} Normal 150-379 [facility] Work Phone: RBC (Bld) [#/Vol] 5.25 {x10E6/uL} Normal 4.14-5.80 [facility] Internal Medicine Work Phone: Comment on above: PATIENT WAS FASTINGP ERFORMED BY: LETICIA [facility] Ttmolj4670 [facility] [id number] RBC (Bld) [#/Vol] 5.25 10*6/uL Normal 4.14-5.80 [facility] Internal Medicine; [facility] Work Phone: Comment on above: PATIENT WAS FASTINGP ERFORMED BY: LETICIA [facility] Ybyoiw4340 [facility] [id number] RBC Auto #/vol (Bld) 5.25 {x10E6/uL} Normal 4.14-5.80 [facility] Work Phone: WBC (Bld) [#/Vol] 6.1 {x10E3/uL} Normal 3.4-10.8 [facility] Internal Medicine Work Phone: Comment on above: PATIENT WAS FASTINGP ERFORMED BY: LETICIA LabCo Lzoggb6771 [facility] [id number] WBC (Bld) [#/Vol] 6.1 10*3/uL Normal 3.4-10.8 [facility] Internal Medicine; [facility] Work Phone: Comment on above: PATIENT WAS FASTINGP ERFORMED BY: [facility] Lqfxbx6309 [facility] [id number] WBC Auto #/vol (Bld) 6.1 {x10E3/uL} Normal 3.4-10.8 [facility] Work Phone: LIPID PANEL (00604)Ordered B y: Costing Manager on 07-13-2016 Cholesterol in HDL mass conc 64 mg/dL Normal [facility] Work Phone: Comment on above: PATIENT WAS FASTINGP ERFORMED BY: LETICIA Dougherty6370 [facility] [id number] Cholesterol in LDL mass conc 121 mg/dL Abnormal 0-99 [facility] Work Phone: Comment on above: PATIENT WAS FASTINGP ERFORMED BY: LETICIA Dougherty6370 [facility] [id number] Cholesterol in LDL/Cholesterol in HDL mass ratio 1.9 {ratio_units} Normal 0.0-3.6 [facility] Work Phone: Comment on above: LDL/HDL Ratio Men Wo men 1/2 Avg.Risk 1.0 1.5 Avg.Risk 3.6 3.2 2X Avg.Risk 6.2 5.0 3X Avg.Risk 8.0 6.1 PATIENT WAS FASTINGP ERFORMED BY: LETICIA Dougherty6370 [facility] [id number] Cholesterol in VLDL mass conc 19 mg/dL Normal 5-40 [facility] Work Phone: Comment on above: PATIENT WAS FASTINGP ERFORMED BY: LETICIA Dougherty6370 [facility] [id number] Cholesterol mass conc 204 mg/dL Abnormal 100-199 Com prehensive Internal Medicine Work Phone: Comment on above: PATIENT WAS FASTINGP ERFORMED BY: LETICIA Dougherty6370 [facility] [id number] Triglyceride mass conc 94 mg/dL Normal 0-149 Co mprehensive Internal Medicine Work Phone: Comment on above: PATIENT WAS FASTINGP ERFORMED BY: LETICIA Dougherty6370 [facility] [id number] METABOLIC PANEL, COMPREHENSI VE (93226)Ordered By: Costing Manager on 07-13-2016 Albumin mass conc 4.8 g/dL Normal 3.6-4.8 Compreh ensive Internal Medicine Work Phone: Comment on above: PATIENT WAS FASTINGP ERFORMED BY: CB [facility] Dmtwvb0866 [address] RoadDublin [place] [id number] Albumin/Globulin mass ratio 2.2 {ratio} Normal 1.2-2.2 [facility] Internal Medicine Work Phone: Comment on above: PATIENT WAS FASTINGP ERFORMED BY: LETICIA [facility] Lvihde2323 [address] RoadDublin [place] [id number] ALP [Catalytic activity/Vol] 77 U/L Normal 39-117 [facility]; [facility] Internal Medicine Work Phone: Comment on above: PATIENT WAS FASTINGP ERFORMED BY: LETICIA [facility] Xluwrt9737 [address] RoadDublin [place] [id number] ALP enzyme act/vol 77 [iU]/L Normal 39-117 [facility] Internal Medicine Work Phone: Comment on above: PATIENT WAS FASTINGP ERFORMED BY: LETICIA [facility] Ugsntc3438 [address] RoadDublin [place] [id number] ALT [Catalytic activity/Vol] 34 U/L Normal 0-44 [facility] Internal Medicine; [facility] Internal Medicine Work Phone: Comment on above: PATIENT WAS FASTINGP ERFORMED BY: LETICIA [facility] Kaynxt2290 [address] RoadDublin [place] [id number] ALT enzyme act/vol 34 [iU]/L Normal 0-44 [facility] Internal Medicine Work Phone: Comment on above: PATIENT WAS FASTINGP ERFORMED BY: LETICIA [facility] Wshulh9918 [address] RoadDublin [place] [id number] AST [Catalytic activity/Vol] 29 U/L Normal 0-40 [facility] Internal Medicine; [facility] Internal Medicine Work Phone: Comment on above: PATIENT WAS FASTINGP ERFORMED BY: LETICIA [facility] Gdsjcf6884 [address] RoadDublin [place] [id number] AST enzyme act/vol 29 [iU]/L Normal 0-40 [facility] Internal Medicine Work Phone: Comment on above: PATIENT WAS FASTINGP ERFORMED BY: LETICIA [facility] Ddozln4770 [address] RoadDublin [place] [id number] Bilirubin mass conc 0.4 mg/dL Normal 0.0-1.2 Compr ehensive Internal Medicine Work Phone: Comment on above: PATIENT WAS FASTINGP ERFORMED BY: LETICIA LabCosandra DoughertyXudopa2788 [address] [facility] [id number] Calcium mass conc 10.0 mg/dL Normal 8.6-10.2 Compreh ensive Internal Medicine Work Phone: Comment on above: PATIENT WAS FASTINGP ERFORMED BY: LETICIA [facility] Gqjchf6946 [address] [facility] [id number] Chloride molar conc 101 mmol/L Normal 96-106 Compr ensive Internal Medicine Work Phone: Comment on above: PATIENT WAS FASTINGP ERFORMED BY: LETICIA LabMj CastilloXslpic8402 [facility] [id number] CO2 molar conc 21 mmol/L Normal 18-29 Comprehens cl Internal Medicine Work Phone: Comment on above: PATIENT WAS FASTINGP ERFORMED BY: LETICIA LabCosandra CastilloWpkfan3598 [facility] [id number] Creatinine mass conc 1.04 mg/dL Normal 0.76-1.27 [facility] Work Phone: Comment on above: PATIENT WAS FASTINGP ERFORMED BY: LETICIA LabCosandra CastilloMivtgp1512 [facility] [id number] GFR/1.73 sq M predicted among blacks CKD-EPI vol rate/area (S/P/Bld) 84 mL/min/1.73 Normal Comprehe nsive Internal Medicine Work Phone: Comment on above: PATIENT WAS FASTINGP ERFORMED BY: LETICIA [facility] Clqymm8746 [address] [facility] [id number] GFR/1.73 sq M predicted among non-blacks CKD-EPI vol rate/area (S/P/Bld) 73 mL/min/1.73 Normal [facility] Work Phone: Comment on above: PATIENT WAS FASTINGP ERFORMED BY: LETICIA [facility] Pakhbk1690 [facility] [id number] Globulin (S) [Mass/Vol] 2.2 g/dL Normal 1.5-4.5 C omprehensive Internal Medicine Work Phone: Comment on above: PATIENT WAS FASTINGP ERFORMED BY: LETICIA LabMj CastilloWoreyx4008 [facility] [place] [id number] Globulin Calculated mass conc (S) 2.2 g/dL Normal 1.5-4.5 [facility] Work Phone: Glucose mass conc 79 mg/dL Normal 65-99 Compreh ensive Internal Medicine Work Phone: Comment on above: PATIENT WAS FASTINGP ERFORMED BY: LETICIA LabMj CastilloPwpxmz2028 [facility] [place] [id number] Potassium molar conc 5.0 mmol/L Normal 3.5-5.2 Comp rehensive Internal Medicine Work Phone: Comment on above: PATIENT WAS FASTINGP ERFORMED BY: LETICIA Castillolin6370 [facility] [id number] Protein mass conc 7.0 g/dL Normal 6.0-8.5 Compreh ensive Internal Medicine Work Phone: Comment on above: PATIENT WAS FASTINGP ERFORMED BY: LETICIA LabMj CastilloHvzfog0304 [facility] [id number] Sodium molar conc 142 mmol/L Normal 134-144 Compreh ensive Internal Medicine Work Phone: Comment on above: PATIENT WAS FASTINGP ERFORMED BY: LETICIA LabMj CastilloAkzdob3489 [facility] [id number] Urea nitrogen mass conc 24 mg/dL Normal 8-27 C omprehensive [facility] Work Phone: Comment on above: PATIENT WAS FASTINGP ERFORMED BY: LETICIA LabMj Cgzulk0858 [facility] [place] [id number] Urea nitrogen/Creatinine mass ratio 23 mg/mg Normal 10-24 [facility] Work Phone: Comment on above: PATIENT WAS FASTINGP ERFORMED BY: LETICIA LabMj Nadfha1663 [facility] [id number] MICROALBUMINOrdered By: Syst em Pearl Glue Operator on 07-13-2016 Albumin DL <= 20 mg/L mass conc (U) 3.1 ug/mL Normal [facility] Work Phone: Comment on above: PATIENT WAS FASTINGP ERFORMED BY: LETICIA LabMj Krnkfb6200 [facility] [id number] Albumin/Creatinine mass ratio (U) 10.4 {mg/g_creat} Normal 0.0-30.0 [facility] Work Phone: Comment on above: PATIENT WAS FASTINGP ERFORMED BY: LETICIA LabCo Rnyxti3802 [facility] [id number] Creatinine mass conc (U) 29.9 mg/dL Normal [facility] Work Phone: Comment on above: PATIENT WAS FASTINGP ERFORMED BY: LETICIA LabMj CastilloTxyofe6612 [facility] [id number] Microscopic ExaminationOrder ed By: Costing Manager on 07-13-2016 Bacteria LM.HPF #/area (Urine sed) None seen Normal [facility] Work Phone: Comment on above: PATIENT WAS FASTINGP ERFORMED BY: LETICIA LabCosandra Hkkhgo0499 [facility] [id number] Epithelial cells LM.HPF #/area (Urine sed) None seen Normal 0 - 10 [facility] Work Phone: Comment on above: PATIENT WAS FASTINGP ERFORMED BY: LETICIA LabMj Fxrebe0886 [facility] [id number] Mucus LM Ql (Urine sed) Present Normal C omprehensive [facility] Work Phone: Mucus Ql (Urine sed) Present Normal Comp rehensive Internal Medicine Work Phone: Comment on above: PATIENT WAS FASTINGP ERFORMED BY: LETICIA [facility] Eodotz3044 [facility] [id number] RBC LM.HPF #/area (Urine sed) 0-2 Normal 0 - 2 [facility] Work Phone: Comment on above: PATIENT WAS FASTINGP ERFORMED BY: LETICIA LabCo Ddwpxv7207 [facility] [id number] WBC LM.HPF #/area (Urine sed) 0-5 Normal 0 - 5 [facility] Work Phone: Comment on above: PATIENT WAS FASTINGP ERFORMED BY: LETICIA JeromeMj CastilloOxrsic3101 [address] Road[address] [place] [id number] TSH ([id number])Ordered By: Syste m Pearl Glue Operator on 07-13-2016 Thyrotropin Qn 6.280 {uIU/mL} Abnormal 0.450-4.50 0 [facility] Work Phone: Comment on above: PATIENT WAS FASTINGP ERFORMED BY: LETICIA [facility] Vllqoz3332 [facility] [place] [id number] URINALYSIS, W/ MICRO ([id number]) Ordered By: Costing Manager on 07-13-2016 Appearance Nom (U) Clear Normal Compre hensive Internal Medicine Work Phone: Comment on above: PATIENT WAS FASTINGP ERFORMED BY: LETICIA LabMj CastilloJmrwfe8350 [facility] RoadEcu [facility] Hospitalin [place] [id number] Bilirubin Ql (U) Negative Normal Comprehe nsive Internal Medicine Work Phone: Comment on above: PATIENT WAS FASTINGP ERFORMED BY: LETICIA LabMj CastilloJnqezh2356 [address] RoadEcu Health Dupl[facility] Hospitalin [place] [id number] Bilirubin Ql (U) Negative Normal Comprehe nsive Internal Medicine; [facility] Work Phone: Comment on above: PATIENT WAS FASTINGP ERFORMED BY: LETICIA LabMj CastilloPyagnc1871 [facility] [place] [id number] Color Nom (U) Yellow Normal Comprehensi ve Internal Medicine Work Phone: Comment on above: PATIENT WAS FASTINGP ERFORMED BY: LETICIA LabCosandra Rrxkoe2032 [address] RoadDublin [place] [id number] Glucose Ql (U) Negative Normal Comprehens cl Internal Medicine Work Phone: Comment on above: PATIENT WAS FASTINGP ERFORMED BY: LETICIA LabCo Wqnqcl1708 [address] RoadDublin [place] [id number] Glucose Ql (U) Negative Normal Comprehens cl Internal Medicine; [facility] Work Phone: Comment on above: PATIENT WAS FASTINGP ERFORMED BY: LETICIA Castillolin6370 [address] RoadDublin [place] [id number] Hemoglobin Ql (U) Negative Normal Compreh ensive Internal Medicine Work Phone: Comment on above: PATIENT WAS FASTINGP ERFORMED BY: LETICIA Castillolin6370 [address] RoadDublin [place] [id number] Hemoglobin Ql (U) Negative Normal Compreh ensive Internal Medicine; [facility] Work Phone: Comment on above: PATIENT WAS FASTINGP ERFORMED BY: LETICIA Castillolin6370 [address] RoadDublin [place] [id number] Hemoglobin Test strip Ql (U) Negative Normal [facility] Work Phone: Ketones Ql (U) Negative Normal Comprehens cl [facility] Medicine Work Phone: Comment on above: PATIENT WAS FASTINGP ERFORMED BY: LETICIA Castillolin6370 [address] RoadDublin [place] [id number] Ketones Ql (U) Negative Normal Comprehens cl [facility] Medicine; [facility] Work Phone: Comment on above: PATIENT WAS FASTINGP ERFORMED BY: LETICIA Castillolin6370 [address] RoadDublin [place] [id number] Leukocyte esterase Test strip Ql (U) Negative Normal [facility] Work Phone: Comment on above: PATIENT WAS FASTINGP ERFORMED BY: LETICIA Castillolin6370 [address] RoadDublin [place] [id number] Leukocyte esterase Test strip Ql (U) Negative Normal [facility]; [facility] Work Phone: Comment on above: PATIENT WAS FASTINGP ERFORMED BY: LETICIA LabMj CastilloMqgrfu8811 [address] RoadDublin [place] [id number] Microscopic observation LM Nom (Urine sed) MICRON Normal [facility] Work Phone: Comment on above: Microscopic follows if indicated. PATIENT WAS FASTINGP ERFORMED BY: LETICIA LabMj Oexzcp5666 [address] RoadDublin [place] [id number] Microscopic observation LM Nom (Urine sed) See below: Normal [facility] Work Phone: Comment on above: Microscopic was kiana cated and was performed. PATIENT WAS FASTINGP ERFORMED BY: LETICIA Castillolin6370 [facility] [place] [id number] Nitrite Ql (U) Negative Normal Comprehens cl [facility] Medicine Work Phone: Comment on above: PATIENT WAS FASTINGP ERFORMED BY: LETICIA Castillolin6370 [facility] [id number] Nitrite Ql (U) Negative Normal Comprehens cl [facility] Medicine; [facility] Work Phone: Comment on above: PATIENT WAS FASTINGP ERFORMED BY: LETICIA Castillolin6370 [facility] [id number] Nitrite Test strip Ql (U) Negative Normal [facility] Work Phone: pH (U) 7.5 [pH] Normal 5.0-7.5 [facility] Work Phone: Comment on above: PATIENT WAS FASTINGP ERFORMED BY: LETICIA [facility] Gnpqys6180 [facility] [id number] pH Test strip (U) 7.5 [pH] Normal 5.0-7.5 Compreh ensive Internal Medicine Work Phone: Protein Ql (U) Negative Normal Comprehens cl [facility] Medicine Work Phone: Comment on above: PATIENT WAS FASTINGP ERFORMED BY: LETICIA [facility] Xtgvcy2617 [facility] [id number] Protein Ql (U) Negative Normal Comprehens cl [facility] Medicine; [facility] Work Phone: Comment on above: PATIENT WAS FASTINGP ERFORMED BY: LETICIA [facility]Saint [facility] Uxweto5559 [facility] [id number] Protein Test strip Ql (U) Negative Normal [facility] Work Phone: Specific gravity Relative Density (U) 1.011 1 Normal 1.005-1.03 0 [facility] Work Phone: Comment on above: PATIENT WAS FASTINGP ERFORMED BY: HabitRPG [facility] Ktobhb7267 [address] RoadDublin [place] [id number] Urobilinogen (U) [Mass/Vol] 0.2 mg/dL Normal 0.2-1.0 [facility]; [facility] Work Phone: Comment on above: PATIENT WAS FASTINGP ERFORMED BY: CB [facility] Llnjjv0116 [address] RoadDublin [place] [id number] Urobilinogen Test strip mass conc (U) 0.2 mg/dL Normal 0.2-1.0 [facility] Work Phone: Comment on above: PATIENT WAS FASTINGP ERFORMED BY: HabitRPG [facility] Ctvwxk6195 [address] RoadDublin [place] [id number] Fecal Occult Blood , Office ([id number])Ordered By: Toño Calvo on 12-05-2015 Hemoglobin.gastrointest inal Ql (St) Negative Normal [facility] Work Phone: Hemoglobin.gastrointest inal Ql (Stl) Negative Normal [facility]; [facility] Work Phone: PSA (PROSTATE SPECIFIC ANTIG EN) (V76.44)Ordered By: Costing Manager on 12-04-2015 Prostate specific Ag mass conc 1.2 ng/mL Normal 0.0-4.0 [facility] Work Phone: Comment on above: Justen ECLIA methodol ogy. .According to the [place] [employer], Serum PSA shoulddecrease and remain at undetectable levels after radicalprostatectomy. The AUA defines biochemical recurrence as an initialPSA value 0.2 ng/mL or greater followed by a subsequent confirmatoryPSA value 0.2 ng/mL or greater.Values obtained with different assay methods or kits cannot be usedinterchangeably. Results cannot be interpreted as absolute evidenceof the presence or absence of malignant disease. PATIENT NOT FASTINGP ERFORMED BY: HabitRPG [facility] Nuxgvw8984 [address] RoadDublin [place] [id number] CALCIFIDIOL (98977) VIT D 25 Ordered By: Costing Manager on 09-30-2015 25-Hydroxyvitamin D2+25-Hydroxyvitamin D3 mass conc 65.7 ng/mL Normal 30.0-100.0 [facility] Work Phone: Comment on above: Vitamin D deficiency has been defined by the [place] ofMedicine and an Endocrine Society practice guideline as alevel of serum 25-OH vitamin D less than 20 ng/mL (1,2).The Endocrine Society went on to further define vitamin Dinsufficiency as a level between 21 and 29 ng/mL (2).1. IOM ([place] of Medicine). 2010. Dietary reference intakes for calcium and D. [place]: The National AcademInvolvio Press.2. Claudio MF, [place], Leonid RANDOLPH, et al. Evaluation, treatment, and prevention of vitamin D deficiency: an Endocrine Society clinical practice guideline. JCEM. 2010; 96(7):1911-30. PATIENT WAS FASTINGP ERFORMED BY: [facility] [id number] CBC W/AUTO DIFF WBC (44544)O rdered By: Costing Manager on 09-30-2015 Basophils (Bld) [#/Vol] 0.0 {x10E3/uL} Normal 0.0-0.2 [facility] Work Phone: Comment on above: PATIENT WAS FASTINGP ERFORMED BY: [facility] [id number] Information: [id number] Basophils (Bld) [#/Vol] 0.0 10*3/uL Normal 0.0-0.2 [facility]; [facility] Work Phone: Comment on above: PATIENT WAS FASTINGP ERFORMED BY: Tackle Grab6370 U [employer]k It - Smartphone RFIDWilson Medical Center [id number] Information: [id number] Basophils Auto #/vol (Bld) 0.0 {x10E3/uL} Normal 0.0-0.2 [facility] Work Phone: Basophils/100 WBC (Bld) 0 % Normal C omprehensive [facility] Work Phone: Comment on above: PATIENT WAS FASTINGP ERFORMED BY: [place] [id number] [facility] [id number] Information: [id number] Basophils/100 WBC Auto (Bld) 0 % Normal [facility] Work Phone: Eosinophils (Bld) [#/Vol] 0.4 {x10E3/uL} Normal 0.0-0.4 [facility] Work Phone: Comment on above: PATIENT WAS FASTINGP ERFORMED BY: [address] [id number] Information: [id number] Eosinophils (Bld) [#/Vol] 0.4 10*3/uL Normal 0.0-0.4 [facility]; [facility] Work Phone: Comment on above: PATIENT WAS FASTINGP ERFORMED BY: [address] [id number] Information: [id number] Eosinophils Auto #/vol (Bld) 0.4 {x10E3/uL} Normal 0.0-0.4 [facility] Work Phone: Eosinophils/100 WBC (Bld) 6 % Normal [facility] Work Phone: Comment on above: PATIENT WAS FASTINGP ERFORMED BY: [address] [id number] Information: [id number] Eosinophils/100 WBC Auto (Bld) 6 % Normal [facility] Work Phone: Erythrocyte distribution width (RBC) [Ratio] 14.2 % Normal 12.3-15.4 [facility] Work Phone: Comment on above: PATIENT WAS FASTINGP ERFORMED BY: [address] [id number] Information: [id number] Erythrocyte distribution width Auto Ratio (RBC) 14.2 % Normal 12.3-15.4 [facility] Work Phone: Hematocrit (Bld) [Volume fraction] 41.0 % Normal 37.5-51.0 [facility] Work Phone: Comment on above: PATIENT WAS FASTINGP ERFORMED BY: LETICIA [place] [id number] [facility] [id number] Information: [id number] Hematocrit Auto Volume Fraction (Bld) 41.0 % Normal 37.5-51.0 [facility] Work Phone: Hemoglobin mass conc (Bld) 13.6 g/dL Normal 12.6-17.7 [facility] Work Phone: Comment on above: PATIENT WAS FASTINGP ERFORMED BY: LETICIA [address] [id number] Information: [id number] Immature granulocytes #/vol (Bld) 0.0 {x10E3/uL} Normal 0.0-0.1 [facility] Work Phone: Comment on above: PATIENT WAS FASTINGP ERFORMED BY: LETICIA [place] [id number] [facility] [id number] Information: [id number] Immature granulocytes (Bld) [#/Vol] 0.0 10*3/uL Normal 0.0-0.1 [facility]; [facility] Work Phone: Comment on above: PATIENT WAS FASTINGP ERFORMED BY: LETICIA [place] 6436870 [facility] [id number] Information: [id number] Immature granulocytes/100 WBC (Bld) 0 % Normal [facility] Work Phone: Comment on above: PATIENT WAS FASTINGP ERFORMED BY: [place] 8568470 [facility] [id number] Information: [id number] Lymphocytes (Bld) [#/Vol] 1.8 {x10E3/uL} Normal 0.7-3.1 [facility] Work Phone: Comment on above: PATIENT WAS FASTINGP ERFORMED BY: [place] [id number] [facility] [id number] Information: [id number] Lymphocytes (Bld) [#/Vol] 1.8 10*3/uL Normal 0.7-3.1 [facility]; [facility] Work Phone: Comment on above: PATIENT WAS FASTINGP ERFORMED BY: [address] [id number] Information: [id number] Lymphocytes Auto #/vol (Bld) 1.8 {x10E3/uL} Normal 0.7-3.1 [facility] Work Phone: Lymphocytes/100 WBC (Bld) 30 % Normal [facility] Work Phone: Comment on above: PATIENT WAS FASTINGP ERFORMED BY: [address] [id number] Information: [id number] Lymphocytes/100 WBC Auto (Bld) 30 % Normal [facility] Work Phone: MCH (RBC) [Entitic mass] 28.3 pg Normal 26.6-33.0 [facility] Work Phone: Comment on above: PATIENT WAS FASTINGP ERFORMED BY: [address] [id number] Information: [id number] MCH Auto Entitic mass (RBC) 28.3 pg Normal 26.6-33.0 [facility] Work Phone: MCHC (RBC) [Mass/Vol] 33.2 g/dL Normal 31.5-35.7 [facility] prehensive Internal Medicine Work Phone: Comment on above: PATIENT WAS FASTINGP ERFORMED BY: [place] 8568470 [facility] [id number] Information: [id number] MCHC Auto mass conc (RBC) 33.2 g/dL Normal 31.5-35.7 [facility] Work Phone: MCV (RBC) [Entitic vol] 85 fL Normal 79-97 C omprehensive Internal Medicine Work Phone: Comment on above: PATIENT WAS FASTINGP ERFORMED BY: LETICIA [place] [id number] [facility] [id number] Information: [id number] MCV Auto Entitic volume (RBC) 85 fL Normal 79-97 [facility] Work Phone: Monocytes (Bld) [#/Vol] 0.5 {x10E3/uL} Normal 0.1-0.9 [facility] Work Phone: Comment on above: PATIENT WAS FASTINGP ERFORMED BY: [address] [id number] Information: [id number] Monocytes (Bld) [#/Vol] 0.5 10*3/uL Normal 0.1-0.9 [facility]; [facility] Work Phone: Comment on above: PATIENT WAS FASTINGP ERFORMED BY: LETICIA [place] [id number] [facility] [id number] Information: [id number] Monocytes Auto #/vol (Bld) 0.5 {x10E3/uL} Normal 0.1-0.9 [facility] Work Phone: Monocytes/100 WBC (Bld) 9 % Normal C omprehensive [facility] Work Phone: Comment on above: PATIENT WAS FASTINGP ERFORMED BY: [place] [id number] [facility] [id number] Information: [id number] Monocytes/100 WBC Auto (Bld) 9 % Normal [facility] Work Phone: Neutrophils (Bld) [#/Vol] 3.3 {x10E3/uL} Normal 1.4-7.0 [facility] Work Phone: Comment on above: PATIENT WAS FASTINGP ERFORMED BY: [address] [place] [id number] Information: [id number] Neutrophils (Bld) [#/Vol] 3.3 10*3/uL Normal 1.4-7.0 [facility]; [facility] Work Phone: Comment on above: PATIENT WAS FASTINGP ERFORMED BY: [facility]6370 [facility] [id number] Information: [id number] Neutrophils Auto #/vol (Bld) 3.3 {x10E3/uL} Normal 1.4-7.0 [facility] Work Phone: Neutrophils/100 WBC (Bld) 55 % Normal [facility] Work Phone: Comment on above: PATIENT WAS FASTINGP ERFORMED BY: [facility]6370 [facility] [id number] Information: [id number] Neutrophils/100 WBC Auto (Bld) 55 % Normal [facility] Work Phone: Platelets (Bld) [#/Vol] 178 {x10E3/uL} Normal 150-379 [facility] Work Phone: Comment on above: PATIENT WAS FASTINGP ERFORMED BY: [facility]6370 [facility] [id number] Information: [id number] Platelets (Bld) [#/Vol] 178 10*3/uL Normal 150-379 [facility]; [facility] Work Phone: Comment on above: PATIENT WAS FASTINGP ERFORMED BY: [facility]6370 [facility] [id number] Information: [id number] Platelets Auto #/vol (Bld) 178 {x10E3/uL} Normal 150-379 [facility] Work Phone: RBC (Bld) [#/Vol] 4.81 {x10E6/uL} Normal 4.14-5.80 [facility] Internal Medicine Work Phone: Comment on above: PATIENT WAS FASTINGP ERFORMED BY: LETICIA Lab[facility] Pfgyko3344 [facility] [id number] Information: [id number] RBC (Bld) [#/Vol] 4.81 10*6/uL Normal 4.14-5.80 [facility] Internal Medicine; [facility] Work Phone: Comment on above: PATIENT WAS FASTINGP ERFORMED BY: LETICIA [facility] Metgxo5626 [facility] [id number] Information: [id number] RBC Auto #/vol (Bld) 4.81 {x10E6/uL} Normal 4.14-5.80 [facility] Work Phone: WBC (Bld) [#/Vol] 6.1 {x10E3/uL} Normal 3.4-10.8 [facility] Internal Medicine Work Phone: Comment on above: PATIENT WAS FASTINGP ERFORMED BY: LETICIA [facility] Fmycfz8760 [facility] [id number] Information: [id number] WBC (Bld) [#/Vol] 6.1 10*3/uL Normal 3.4-10.8 [facility] Internal Medicine; [facility] Work Phone: Comment on above: PATIENT WAS FASTINGP ERFORMED BY: [facility]6370 [facility] [id number] Information: [id number] WBC Auto #/vol (Bld) 6.1 {x10E3/uL} Normal 3.4-10.8 [facility] Work Phone: HEPATIC FUNCTION PANEL ([phone])Ordered By: Costing Manager on 09-30-2015 Bilirubin.direct mass conc 0.11 mg/dL Normal 0.00-0.40 [facility] Work Phone: Comment on above: PATIENT WAS FASTINGP ERFORMED BY: [facility]6370 [facility] [id number] LIPID PANEL ([id number])Ordered B y: Costing Manager on 09-30-2015 Cholesterol in HDL mass conc 51 mg/dL Normal [facility] Work Phone: Comment on above: According to ATP-III Guidelines, HDL-C >59 mg/dL is considered anegative risk factor for CHD. PATIENT WAS FASTINGP ERFORMED BY: LETICIA JeromeMj CastilloTnrqte9017 [facility] [id number]; will review at appt on 7. Cholesterol in LDL mass conc 112 mg/dL Abnormal 0-99 [facility] Work Phone: Comment on above: PATIENT WAS FASTINGP ERFORMED BY: LETICIA LabMj CastilloAznecp4871 [facility] [id number]; will review at appt on 7. Cholesterol in LDL/Cholesterol in HDL mass ratio 2.2 {ratio_units} Normal 0.0-3.6 [facility] Work Phone: Comment on above: LDL/HDL Ratio Men Wo men 1/2 Avg.Risk 1.0 1.5 Avg.Risk 3.6 3.2 2X Avg.Risk 6.2 5.0 3X Avg.Risk 8.0 6.1 PATIENT WAS FASTINGP ERFORMED BY: LETICIA JeromeMj CastilloTrmmgh2865 [facility] [id number]; will review at appt on 7. Cholesterol in VLDL mass conc 15 mg/dL Normal 5-40 [facility] Work Phone: Comment on above: PATIENT WAS FASTINGP ERFORMED BY: LETICIA BeThereRewardsMj CastilloLvrwdb5164 [facility] [id number]; will review at appt on 7. Cholesterol mass conc 178 mg/dL Normal 100-199 Com prehensive Internal Medicine Work Phone: Comment on above: PATIENT WAS FASTINGP ERFORMED BY: LETICIA LabMj CastilloWwvgpr3435 [facility] [id number]; will review at appt on 7. Triglyceride mass conc 76 mg/dL Normal 0-149 [facility] Work Phone: Comment on above: PATIENT WAS FASTINGP ERFORMED BY: LETICIA [facility] Kdtvfe9353 [address] RoadDublin [place] [id number]; will review at appt on 10.02 METABOLIC PANEL, BRYAN GARCIA ([id number])Ordered By: Costing Manager on 09-30-2015 Albumin mass conc 4.1 g/dL Normal 3.6-4.8 Compreh [facility] Internal Medicine Work Phone: Comment on above: PATIENT WAS FASTINGP ERFORMED BY: LabCo Itpcbf7004 [address]bs RoadDublin [place] [id number] Albumin/Globulin mass ratio 1.7 {ratio} Normal 1.1-2.5 [facility] Work Phone: Comment on above: PATIENT WAS FASTINGP ERFORMED BY: LabSaint [facility] Vdearh5435 [address]bs RoadDublin [place] [id number] ALP [Catalytic activity/Vol] 79 U/L Normal 39-117 [facility]; Comprehensive Internal Medicine Work Phone: Comment on above: PATIENT WAS FASTINGP ERFORMED BY: [facility] Svvzop3744 Dob[address] RoadDublin [place] [id number] ALP enzyme act/vol 79 [iU]/L Normal 39-117 [facility] Internal Medicine Work Phone: Comment on above: PATIENT WAS FASTINGP ERFORMED BY: [facility] Okaesq3809 [address] RoadDublin [place] [id number] ALT [Catalytic activity/Vol] 33 U/L Normal 0-44 [facility]; [facility] Work Phone: Comment on above: PATIENT WAS FASTINGP ERFORMED BY: [facility] Gtbpge6986 Dob[address] RoadDublin [place] [id number] ALT enzyme act/vol 33 [iU]/L Normal 0-44 [facility] Internal Medicine Work Phone: Comment on above: PATIENT WAS FASTINGP ERFORMED BY: [facility] Cyksom7473 [address] RoadDublin [place] [id number] AST [Catalytic activity/Vol] 27 U/L Normal 0-40 [facility]; [facility] Work Phone: Comment on above: PATIENT WAS FASTINGP ERFORMED BY: LETICIA [facility] Hkideb4788 Dobbs RoadDublin [place] [id number] AST enzyme act/vol 27 [iU]/L Normal 0-40 Compre [facility] Internal Medicine Work Phone: Comment on above: PATIENT WAS FASTINGP ERFORMED BY: LETICIA [facility] Wltofj2002 Dob[address] RoadDublin [place] [id number] Bilirubin mass conc 0.3 mg/dL Normal 0.0-1.2 Compr ensive Internal Medicine Work Phone: Comment on above: PATIENT WAS FASTINGP ERFORMED BY: LETICIA [facility] Rroueg6145 [address] RoadDublin [place] [id number] Calcium mass conc 9.8 mg/dL Normal 8.6-10.2 Compre[facility] Work Phone: Comment on above: PATIENT WAS FASTINGP ERFORMED BY: LETICIA LabMj CastilloJiznnw5647 Dob[address] RoadDublin [place] [id number] Chloride molar conc 103 mmol/L Normal 97-108 Compr [facility] Internal Medicine Work Phone: Comment on above: PATIENT WAS FASTINGP ERFORMED BY: LETICIA LabMj CastilloTiydmp6812 [address] Roadblin [place] [id number] CO2 molar conc 22 mmol/L Normal 18-29 Comprehens cl Internal Medicine Work Phone: Comment on above: PATIENT WAS FASTINGP ERFORMED BY: LETICIA LabMj CastilloDjpccq8343 Dobbs RoadEcu Health Duplin Hospitalin [place] [id number] Creatinine mass conc 1.07 mg/dL Normal 0.76-1.27 Comp [facility] Internal Medicine Work Phone: Comment on above: PATIENT WAS FASTINGP ERFORMED BY: LETICIA LabCosandra Zvsghq2331 [address] RoadDublin [place] [id number] GFR/1.73 sq M predicted among blacks CKD-EPI vol rate/area (S/P/Bld) 82 mL/min/1.73 Normal Comprehe ive Internal Medicine Work Phone: Comment on above: PATIENT WAS FASTINGP ERFORMED BY: LETICIA [facility] Ppmjhv3304 [address] RoadDublin [place] [id number] GFR/1.73 sq M predicted among non-blacks CKD-EPI vol rate/area (S/P/Bld) 71 mL/min/1.73 Normal [facility] Work Phone: Comment on above: PATIENT WAS FASTINGP ERFORMED BY: [facility] Nzegrp[address] [facility]in [place] [id number] Globulin (S) [Mass/Vol] 2.4 g/dL Normal 1.5-4.5 C omprehensive Internal Medicine Work Phone: Comment on above: PATIENT WAS FASTINGP ERFORMED BY: [facility] Jnarhc[address] [facility] [id number] Globulin Calculated mass conc (S) 2.4 g/dL Normal 1.5-4.5 [facility] Work Phone: Glucose mass conc 89 mg/dL Normal 65-99 Compreh ensive Internal Medicine Work Phone: Comment on above: PATIENT WAS FASTINGP ERFORMED BY: [facility] Hocyrl75[address] [facility]in [place] [id number] Potassium molar conc 4.7 mmol/L Normal 3.5-5.2 Comp rehensive Internal Medicine Work Phone: Comment on above: PATIENT WAS FASTINGP ERFORMED BY: [facility] Hsmszv2775 [facility] [id number] Protein mass conc 6.5 g/dL Normal 6.0-8.5 Compreh ensive Internal Medicine Work Phone: Comment on above: PATIENT WAS FASTINGP ERFORMED BY: [facility] Vhewqp51[address] [facility]in [place] [id number] Sodium molar conc 142 mmol/L Normal 134-144 Compreh ensive Internal Medicine Work Phone: Comment on above: PATIENT WAS FASTINGP ERFORMED BY: [facility] Exmbwi[address]87 [address] [facility]in [place] [id number] Urea nitrogen mass conc 22 mg/dL Normal 8-27 C omprehensive Internal Medicine Work Phone: Comment on above: PATIENT WAS FASTINGP ERFORMED BY: LETICIA [facility] Clyvly[address] [facility]in [place] [id number] Urea nitrogen/Creatinine mass ratio 21 mg/mg Normal 10- [facility] Work Phone: Comment on above: PATIENT WAS FASTINGP ERFORMED BY: LETICIA [facility] Tcyzwd5[address] [facility] [id number] MICROALBUMINOrdered By: Syst em Pearl Glue Operator on 09-30-2015 Albumin DL <= 20 mg/L mass conc (U) 5.8 ug/mL Normal [facility] Work Phone: Comment on above: PATIENT WAS FASTINGP ERFORMED BY: LETICIA [facility] Hqcqim16[address] [facility] [id number] Albumin/Creatinine mass ratio (U) 5.3 {mg/g_creat} Normal 0.0-30.0 [facility] Work Phone: Comment on above: PATIENT WAS FASTINGP ERFORMED BY: LETICIA [facility] [facility] [id number] Creatinine mass conc (U) 108.8 mg/dL Normal [facility] Work Phone: Comment on above: PATIENT WAS FASTINGP ERFORMED BY: LETICIA [facility] Ktpexz2514 [facility] [id number] Microscopic ExaminationOrder ed By: Costing Manager on 09-30-2015 Bacteria LM.HPF #/area (Urine sed) None seen Normal [facility] Work Phone: Comment on above: PATIENT WAS FASTINGP ERFORMED BY: [facility] Hrmxcm9[address] [facility] [id number] Epithelial cells LM.HPF #/area (Urine sed) 0-10 Normal 0 - 10 [facility] Work Phone: Comment on above: PATIENT WAS FASTINGP ERFORMED BY: LETICIA [facility] Lbjqly5[address] [facility]in [place] [id number] Mucus LM Ql (Urine sed) Present Normal C omprehensive Internal Medicine Work Phone: Mucus Ql (Urine sed) Present Normal Comp rehensive Internal Medicine Work Phone: Comment on above: PATIENT WAS FASTINGP ERFORMED BY: CB [facility] Tkytqk6344 [address] RoadDublin [place] [id number] RBC LM.HPF #/area (Urine sed) 0-2 Normal 0 - 2 [facility] Work Phone: Comment on above: PATIENT WAS FASTINGP ERFORMED BY: CB [facility] Jeemml7947 [address] RoadDublin [place] [id number] WBC LM.HPF #/area (Urine sed) 0-5 Normal 0 - 5 [facility] Work Phone: Comment on above: PATIENT WAS FASTINGP ERFORMED BY: CB [facility] Kmllad[address] [facility] [id number] PSA (PROSTATE SPECIFIC ANTIG EN) (V76.44)Ordered By: Costing Manager on 09-30-2015 Prostate specific Ag mass conc 1.5 ng/mL Normal 0.0-4.0 [facility] Work Phone: Comment on above: [employer]ush ECLIA methodol ogy. .According to the [place] [employer], Serum PSA shoulddecrease and remain at undetectable levels after radicalprostatectomy. The AUA defines biochemical recurrence as an initialPSA value 0.2 ng/mL or greater followed by a subsequent confirmatoryPSA value 0.2 ng/mL or greater.Values obtained with different assay methods or kits cannot be usedinterchangeably. Results cannot be interpreted as absolute evidenceof the presence or absence of malignant disease. PATIENT WAS FASTINGP ERFORMED BY: [facility] Fyrqct[address] [facility] [id number] TSH ([id number])Ordered By: Syste m Pearl Glue Operator on 09-30-2015 Thyrotropin Qn 0.481 {uIU/mL} Normal 0.450-4.50 0 [facility] Work Phone: Comment on above: PATIENT WAS FASTINGP ERFORMED BY: HabitRPG [facility] Jxcqav[address] [facility] HospitalDublin [place] [id number] URINALYSIS, W/ MICRO ([id number]) Ordered By: Costing Manager on 09-30-2015 Appearance Nom (U) Clear Normal Compre hensive Internal Medicine Work Phone: Comment on above: PATIENT WAS FASTINGP ERFORMED BY: LETICIA [facility] Qsgeni4685 [address] RoadDublin [place] [id number] Bilirubin Ql (U) Negative Normal Comprehe nsive Internal Medicine Work Phone: Comment on above: PATIENT WAS FASTINGP ERFORMED BY: LETICIA [facility] Aadsmm0696 [address] RoadDublin [place] [id number] Bilirubin Ql (U) Negative Normal Comprehe nsive Internal Medicine; [facility] Work Phone: Comment on above: PATIENT WAS FASTINGP ERFORMED BY: LETICIA [facility] Dbvhmr4161 [address] RoadDublin [place] [id number] Color Nom (U) Yellow Normal Comprehensi ve Internal Medicine Work Phone: Comment on above: PATIENT WAS FASTINGP ERFORMED BY: LETICIA [facility] Lwgiuy3467 [address] RoadDublin [place] [id number] Glucose Ql (U) Negative Normal Comprehens cl Internal Medicine Work Phone: Comment on above: PATIENT WAS FASTINGP ERFORMED BY: LETICIA [facility] Ebpttd6579 [address] RoadDublin [place] [id number] Glucose Ql (U) Negative Normal Comprehens cl Internal Medicine; [facility] Work Phone: Comment on above: PATIENT WAS FASTINGP ERFORMED BY: LETICIA [facility] Gpbork3397 [address] RoadDublin [place] [id number] Hemoglobin Ql (U) Negative Normal Compreh ensive Internal Medicine Work Phone: Comment on above: PATIENT WAS FASTINGP ERFORMED BY: LETICIA [facility] Krlpjl6931 [address] RoadDublin [place] [id number] Hemoglobin Ql (U) Negative Normal Compreh ensive Internal Medicine; [facility] Work Phone: Comment on above: PATIENT WAS FASTINGP ERFORMED BY: LETICIA [facility] Yjpxlj8214 [address] RoadDublin [place] [id number] Hemoglobin Test strip Ql (U) Negative Normal [facility] Work Phone: Ketones Ql (U) Negative Normal Comprehens cl Internal Medicine Work Phone: Comment on above: PATIENT WAS FASTINGP ERFORMED BY: LETCIIA Dougherty6370 [address] RoadDublin [place] [id number] Ketones Ql (U) Negative Normal Comprehens cl Internal Medicine; [facility] Work Phone: Comment on above: PATIENT WAS FASTINGP ERFORMED BY: LETICIA Torre70 [address] RoadDublin [place] [id number] Leukocyte esterase Test strip Ql (U) Negative Normal [facility] Work Phone: Comment on above: PATIENT WAS FASTINGP ERFORMED BY: LETICIA Dougherty6370 [address] RoadDublin [place] [id number] Leukocyte esterase Test strip Ql (U) Negative Normal [facility]; [facility] Work Phone: Comment on above: PATIENT WAS FASTINGP ERFORMED BY: LETICIA Torre70 [address] RoadDublin [place] [id number] Microscopic observation LM Nom (Urine sed) MICRON Normal [facility] Work Phone: Comment on above: Microscopic follows if indicated. PATIENT WAS FASTINGP ERFORMED BY: LETICIA Dougherty6370 [address] RoadDublin [place] [id number] Microscopic observation LM Nom (Urine sed) See below: Normal [facility] Work Phone: Comment on above: Microscopic was kiana cated and was performed. PATIENT WAS FASTINGP ERFORMED BY: LETICIA Dougherty6370 [address] RoadDublin [place] [id number] Nitrite Ql (U) Negative Normal Comprehens cl Internal Medicine Work Phone: Comment on above: PATIENT WAS FASTINGP ERFORMED BY: LETICIA Dougherty6370 [address] RoadDublin [place] [id number] Nitrite Ql (U) Negative Normal Comprehens cl Internal Medicine; [facility] Work Phone: Comment on above: PATIENT WAS FASTINGP ERFORMED BY: LETICIA Castillolin6370 [address] RoadDublin [place] [id number] Nitrite Test strip Ql (U) Negative Normal [facility] Work Phone: pH (U) 5.5 [pH] Normal 5.0-7.5 [facility] Work Phone: Comment on above: PATIENT WAS FASTINGP ERFORMED BY: LETICIA [facility] Kkrbmk3705 [address] RoadDublin [place] [id number] pH Test strip (U) 5.5 [pH] Normal 5.0-7.5 Compreh ensive Internal Medicine Work Phone: Protein Ql (U) Negative Normal Comprehens cl Internal Medicine Work Phone: Comment on above: PATIENT WAS FASTINGP ERFORMED BY: LETICIA [facility] Qgjymp0449 [address] RoadDublin [place] [id number] Protein Ql (U) Negative Normal Comprehens cl Internal Medicine; [facility] Work Phone: Comment on above: PATIENT WAS FASTINGP ERFORMED BY: LETICIA [facility] Elfsig1988 [address] RoadDublin [place] [id number] Protein Test strip Ql (U) Negative Normal [facility] Work Phone: Specific gravity Relative Density (U) 1.019 1 Normal 1.005-1.03 0 [facility] Work Phone: Comment on above: PATIENT WAS FASTINGP ERFORMED BY: LETICIA [facility] Jctpnk6855 [address] RoadDublin [place] [id number] Urobilinogen (U) [Mass/Vol] 0.2 mg/dL Normal 0.2-1.0 [facility]; [facility] Work Phone: Comment on above: PATIENT WAS FASTINGP ERFORMED BY: CB [facility] Yncydl8753 [address] RoadDublin [place] [id number] Urobilinogen Test strip mass conc (U) 0.2 mg/dL Normal 0.2-1.0 [facility] Work Phone: Comment on above: PATIENT WAS FASTINGP ERFORMED BY: CB [facility] Qrlfnd5251 [address] RoadDublin [place] [id number] HEPATIC FUNCTION PANEL (8007 6)Ordered By: Costing Manager on 08-30-2015 Albumin mass conc 4.0 g/dL Normal 3.6-4.8 [facility] Internal Medicine Work Phone: Comment on above: PATIENT WAS FASTINGP ERFORMED BY: CB [facility] Fydwib5027 [address] RoadDublin [place] [id number] ALP [Catalytic activity/Vol] 95 U/L Normal 39-117 [facility]; [facility] Internal Medicine Work Phone: Comment on above: PATIENT WAS FASTINGP ERFORMED BY: CB [facility] Owptjw8115 [address] RoadDublin [place] [id number] ALP enzyme act/vol 95 [iU]/L Normal 39-117 [facility] Internal Medicine Work Phone: Comment on above: PATIENT WAS FASTINGP ERFORMED BY: CB [facility] Pqjkjr5478 [address] RoadDublin [place] [id number] ALT [Catalytic activity/Vol] 22 U/L Normal 0-44 [facility]; [facility] Internal Medicine Work Phone: Comment on above: PATIENT WAS FASTINGP ERFORMED BY: CB [facility] Hoczpk0428 [address] RoadDublin [place] [id number] ALT enzyme act/vol 22 [iU]/L Normal 0-44 [facility] Internal Medicine Work Phone: Comment on above: PATIENT WAS FASTINGP ERFORMED BY: CB [facility] Akarvq0571 [address] RoadDublin [place] [id number] AST [Catalytic activity/Vol] 19 U/L Normal 0-40 [facility] Internal Medicine; [facility] Internal Medicine Work Phone: Comment on above: PATIENT WAS FASTINGP ERFORMED BY: CB [facility] Ibysnq5424 [address] RoadDublin [place] [id number] AST enzyme act/vol 19 [iU]/L Normal 0-40 [facility] Internal Medicine Work Phone: Comment on above: PATIENT WAS FASTINGP ERFORMED BY: CB [facility] Dyqhmu3054 [address] RoadDublin [place] [id number] Bilirubin mass conc 0.4 mg/dL Normal 0.0-1.2 Compr [facility] Internal Medicine Work Phone: Comment on above: PATIENT WAS FASTINGP ERFORMED BY: LETICIA Bertrand Dougherty6370 [facility] [id number] Bilirubin.direct mass conc 0.12 mg/dL Normal 0.00-0.40 [facility] Work Phone: Comment on above: PATIENT WAS FASTINGP ERFORMED BY: LETICIA Bertrand Castillolin6370 [facility] [id number] Protein mass conc 6.6 g/dL Normal 6.0-8.5 Compreh ensive Internal Medicine Work Phone: Comment on above: PATIENT WAS FASTINGP ERFORMED BY: LETICIA Lidiasandra Xxopug9830 [facility] [id number] LIPID PANEL ([id number])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-30-2015 Cholesterol in HDL mass conc 48 mg/dL Normal [facility] Work Phone: Comment on above: According to ATP-III Guidelines, HDL-C >59 mg/dL is considered anegative risk factor for CHD. PATIENT WAS FASTINGP ERFORMED BY: LETICIA Lidia Qczlzc5591 [facility] [id number] Information: [id number] SL Cholesterol in LDL mass conc 90 mg/dL Normal 0-99 [facility] Work Phone: Comment on above: PATIENT WAS FASTINGP ERFORMED BY: LETICIA Lidia Xqlaxr8541 [facility] [id number] Information: [id number] SL Cholesterol in LDL/Cholesterol in HDL mass ratio 1.9 {ratio_units} Normal 0.0-3.6 [facility] Work Phone: Comment on above: LDL/HDL Ratio Men Wo men 1/2 Avg.Risk 1.0 1.5 Avg.Risk 3.6 3.2 2X Avg.Risk 6.2 5.0 3X Avg.Risk 8.0 6.1 PATIENT WAS FASTINGP ERFORMED BY: LETICIA [facility] Sfanms4470 [facility] [id number] Information: [id number] Cholesterol in VLDL mass conc 11 mg/dL Normal 5-40 [facility] Work Phone: Comment on above: PATIENT WAS FASTINGP ERFORMED BY: LETICIA [facility] Lkvxtb1737 [facility] [id number] Information: [id number] SL Cholesterol mass conc 149 mg/dL Normal 100-199 Com prehensive Internal Medicine Work Phone: Comment on above: PATIENT WAS FASTINGP ERFORMED BY: [facility] Hlzzzp8300 [facility] [id number] Information: [id number] SL Triglyceride mass conc 56 mg/dL Normal 0-149 [facility] hospitalehensive Internal Medicine Work Phone: Comment on above: PATIENT WAS FASTINGP ERFORMED BY: LabH[facility]6370 [facility] [id number] Information: [id number] LIPID PANEL (06746)Ordered B y: Costing Manager on 05-30-2015 Cholesterol in HDL mass conc 45 mg/dL Normal [facility] Work Phone: Comment on above: According to ATP-III Guidelines, HDL-C >59 mg/dL is considered anegative risk factor for CHD. PATIENT NOT FASTINGP ERFORMED BY: [facility] Kubykj9294 [facility] [id number] Information: [id number] Cholesterol in LDL mass conc 152 mg/dL Abnormal 0-99 [facility] Work Phone: Comment on above: PATIENT NOT FASTINGP ERFORMED BY: [facility] Pkslyn5222 [facility] [id number] Information: [id number] Cholesterol in LDL/Cholesterol in HDL mass ratio 3.4 {ratio_units} Normal 0.0-3.6 [facility] Work Phone: Comment on above: LDL/HDL Ratio Men Wo men 1/2 Avg.Risk 1.0 1.5 Avg.Risk 3.6 3.2 2X Avg.Risk 6.2 5.0 3X Avg.Risk 8.0 6.1 PATIENT NOT FASTINGP ERFORMED BY: LETICIA CanoCosandra DoughertyFhxddi59[address] [facility] Hospitalblin [place] [id number] Information: [id number] Cholesterol in VLDL mass conc 15 mg/dL Normal 5-40 [facility] Work Phone: Comment on above: PATIENT NOT FASTINGP ERFORMED BY: CB [facility] Iurwov5743 [address] Roadblin [place] [id number] Information: [id number] Cholesterol mass conc 212 mg/dL Abnormal 100-199 Com prehensive Internal Medicine Work Phone: Comment on above: PATIENT NOT FASTINGP ERFORMED BY: LETICIA [facility] Qiqppg[address] [facility]in [place] [id number] Information: [id number] Triglyceride mass conc 77 mg/dL Normal 0-149 Co [facility] hospitalensive Internal Medicine Work Phone: Comment on above: PATIENT NOT FASTINGP ERFORMED BY: LETICIA [facility] Wguiyi8427 [address] [facility]in [place] [id number] Information: [id number] CALCIFIDIOL (34947) VIT D 25 Ordered By: Costing Manager on 02-27-2015 25-Hydroxyvitamin D2+25-Hydroxyvitamin D3 mass conc 68.5 ng/mL Normal 30.0-100.0 [facility] Work Phone: Comment on above: Vitamin D deficiency has been defined by the [place] ofMedicine and an Endocrine Society practice guideline as alevel of serum 25-OH vitamin D less than 20 ng/mL (1,2).The Endocrine Society went on to further define vitamin Dinsufficiency as a level between 21 and 29 ng/mL (2).1. IOM ([place] of Medicine). 2010. Dietary reference intakes for calcium and D. [place]: The National Academies Press.2. Claudio MF, [place], Leonid RANDOLPH, et al. Evaluation, treatment, and prevention of vitamin D deficiency: an Endocrine Society clinical practice guideline. JCEM. 2010; 96(7):1911-30. PATIENT WAS FASTINGP ERFORMED BY: [place] [id number] [facility] [id number] CBC W/AUTO DIFF WBC (45399)O rdered By: Costing Manager on 02-27-2015 Basophils (Bld) [#/Vol] 0.0 {x10E3/uL} Normal 0.0-0.2 [facility] Work Phone: Comment on above: PATIENT WAS FASTINGP ERFORMED BY: [address] [id number] Information: [id number] Basophils (Bld) [#/Vol] 0.0 10*3/uL Normal 0.0-0.2 [facility]; [facility] Work Phone: Comment on above: PATIENT WAS FASTINGP ERFORMED BY: [address] [id number] Information: [id number] Basophils Auto #/vol (Bld) 0.0 {x10E3/uL} Normal 0.0-0.2 [facility] Work Phone: Basophils/100 WBC (Bld) 1 % Normal C omprehensive Internal Medicine Work Phone: Comment on above: PATIENT WAS FASTINGP ERFORMED BY: [address] [id number] Information: [id number] Basophils/100 WBC Auto (Bld) 1 % Normal [facility] Work Phone: Eosinophils (Bld) [#/Vol] 0.2 {x10E3/uL} Normal 0.0-0.4 [facility] Work Phone: Comment on above: PATIENT WAS FASTINGP ERFORMED BY: [place] [id number] [facility] [id number] Information: [id number] Eosinophils (Bld) [#/Vol] 0.2 10*3/uL Normal 0.0-0.4 [facility]; [facility] Work Phone: Comment on above: PATIENT WAS FASTINGP ERFORMED BY: [place] [id number] [facility] [id number] Information: [id number] Eosinophils Auto #/vol (Bld) 0.2 {x10E3/uL} Normal 0.0-0.4 [facility] Work Phone: Eosinophils/100 WBC (Bld) 4 % Normal [facility] Work Phone: Comment on above: PATIENT WAS FASTINGP ERFORMED BY: LETICIA [place] [id number] [facility] [id number] Information: [id number] Eosinophils/100 WBC Auto (Bld) 4 % Normal [facility] Work Phone: Erythrocyte distribution width (RBC) [Ratio] 14.2 % Normal 12.3-15.4 [facility] Work Phone: Comment on above: PATIENT WAS FASTINGP ERFORMED BY: [place] [id number] [facility] [id number] Information: [id number] Erythrocyte distribution width Auto Ratio (RBC) 14.2 % Normal 12.3-15.4 [facility] Work Phone: Hematocrit (Bld) [Volume fraction] 41.9 % Normal 37.5-51.0 [facility] Work Phone: Comment on above: PATIENT WAS FASTINGP ERFORMED BY: [place] [id number] [facility] [id number] Information: [id number] Hematocrit Auto Volume Fraction (Bld) 41.9 % Normal 37.5-51.0 [facility] Work Phone: Hemoglobin mass conc (Bld) 14.6 g/dL Normal 12.6-17.7 [facility] Work Phone: Comment on above: PATIENT WAS FASTINGP ERFORMED BY: [place] [id number] [facility] [id number] Information: [id number] Immature granulocytes #/vol (Bld) 0.0 {x10E3/uL} Normal 0.0-0.1 [facility] Work Phone: Comment on above: PATIENT WAS FASTINGP ERFORMED BY: [address] [id number] Information: [id number] Immature granulocytes (Bld) [#/Vol] 0.0 10*3/uL Normal 0.0-0.1 [facility]; [facility] Work Phone: Comment on above: PATIENT WAS FASTINGP ERFORMED BY: [address] [id number] Information: [id number] Immature granulocytes/100 WBC (Bld) 0 % Normal [facility] Work Phone: Comment on above: PATIENT WAS FASTINGP ERFORMED BY: [address] [id number] Information: 138692,[id number] Lymphocytes (Bld) [#/Vol] 1.6 {x10E3/uL} Normal 0.7-3.1 [facility] Work Phone: Comment on above: PATIENT WAS FASTINGP ERFORMED BY: [address] [id number] Information: [id number] Lymphocytes (Bld) [#/Vol] 1.6 10*3/uL Normal 0.7-3.1 [facility]; [facility] Work Phone: Comment on above: PATIENT WAS FASTINGP ERFORMED BY: [address] [id number] Information: [id number] Lymphocytes Auto #/vol (Bld) 1.6 {x10E3/uL} Normal 0.7-3.1 [facility] Work Phone: Lymphocytes/100 WBC (Bld) 31 % Normal [facility] Work Phone: Comment on above: PATIENT WAS FASTINGP ERFORMED BY: [place] [id number] [facility] [id number] Information: [id number] Lymphocytes/100 WBC Auto (Bld) 31 % Normal [facility] Work Phone: MCH (RBC) [Entitic mass] 28.9 pg Normal 26.6-33.0 [facility] Work Phone: Comment on above: PATIENT WAS FASTINGP ERFORMED BY: [place] [id number] [facility] [id number] Information: [id number] MCH Auto Entitic mass (RBC) 28.9 pg Normal 26.6-33.0 [facility] Work Phone: MCHC (RBC) [Mass/Vol] 34.8 g/dL Normal 31.5-35.7 [facility] Internal Medicine Work Phone: Comment on above: PATIENT WAS FASTINGP ERFORMED BY: [place] [id number] [facility] [id number] Information: [id number] MCHC Auto mass conc (RBC) 34.8 g/dL Normal 31.5-35.7 [facility] Internal Medicine Work Phone: MCV (RBC) [Entitic vol] 83 fL Normal 79-97 [facility] Internal Medicine Work Phone: Comment on above: PATIENT WAS FASTINGP ERFORMED BY: [place] [id number] [facility] [id number] Information: [id number] MCV Auto Entitic volume (RBC) 83 fL Normal 79-97 [facility] Internal Medicine Work Phone: Monocytes (Bld) [#/Vol] 0.6 {x10E3/uL} Normal 0.1-0.9 [facility] Work Phone: Comment on above: PATIENT WAS FASTINGP ERFORMED BY: [place] [id number] [facility] [id number] Information: [id number] Monocytes (Bld) [#/Vol] 0.6 10*3/uL Normal 0.1-0.9 [facility]; [facility] Work Phone: Comment on above: PATIENT WAS FASTINGP ERFORMED BY: [place] [id number] [facility] [id number] Information: [id number] Monocytes Auto #/vol (Bld) 0.6 {x10E3/uL} Normal 0.1-0.9 [facility] Work Phone: Monocytes/100 WBC (Bld) 13 % Normal C omprehensive [facility] Medicine Work Phone: Comment on above: PATIENT WAS FASTINGP ERFORMED BY: [address] [id number] Information: [id number] Monocytes/100 WBC Auto (Bld) 13 % Normal [facility] Work Phone: Neutrophils (Bld) [#/Vol] 2.5 {x10E3/uL} Normal 1.4-7.0 [facility] Work Phone: Comment on above: PATIENT WAS FASTINGP ERFORMED BY: [address] [id number] Information: [id number] Neutrophils (Bld) [#/Vol] 2.5 10*3/uL Normal 1.4-7.0 [facility]; [facility] Work Phone: Comment on above: PATIENT WAS FASTINGP ERFORMED BY: [place] [id number] [facility] [id number] Information: [id number] Neutrophils Auto #/vol (Bld) 2.5 {x10E3/uL} Normal 1.4-7.0 [facility] Work Phone: Neutrophils/100 WBC (Bld) 51 % Normal [facility] Work Phone: Comment on above: PATIENT WAS FASTINGP ERFORMED BY: LETICIA [facility] Xrwjyu1453 [facility] [id number] Information: [id number] Neutrophils/100 WBC Auto (Bld) 51 % Normal [facility] Work Phone: Platelets (Bld) [#/Vol] 170 {x10E3/uL} Normal 150-379 [facility] Work Phone: Comment on above: PATIENT WAS FASTINGP ERFORMED BY: LETICIA [address] [id number] Information: [id number] Platelets (Bld) [#/Vol] 170 10*3/uL Normal 150-379 [facility] Internal Medicine; [facility] Internal Medicine Work Phone: Comment on above: PATIENT WAS FASTINGP ERFORMED BY: LETICIA [facility] Dwe[address] [id number] Information: [id number] Platelets Auto #/vol (Bld) 170 {x10E3/uL} Normal 150-379 [facility] Work Phone: RBC (Bld) [#/Vol] 5.05 {x10E6/uL} Normal 4.14-5.80 [facility] Internal Medicine Work Phone: Comment on above: PATIENT WAS FASTINGP ERFORMED BY: LETICIA [facility] Mcwyvl4559 [facility] [id number] Information: [id number] RBC (Bld) [#/Vol] 5.05 10*6/uL Normal 4.14-5.80 [facility] Internal Medicine; [facility] Work Phone: Comment on above: PATIENT WAS FASTINGP ERFORMED BY: LETICIA [facility] Sadqoh5215 [facility] [id number] Information: [id number] RBC Auto #/vol (Bld) 5.05 {x10E6/uL} Normal 4.14-5.80 [facility] Internal Medicine Work Phone: WBC (Bld) [#/Vol] 5.0 {x10E3/uL} Normal 3.4-10.8 [facility] prehensive Internal Medicine Work Phone: Comment on above: PATIENT WAS FASTINGP ERFORMED BY: LETICIA AccertifyInspira Medical Center WoodburyXstkwd0161 [facility] [id number] Information: [id number] WBC (Bld) [#/Vol] 5.0 10*3/uL Normal 3.4-10.8 [facility] Internal Medicine; [facility] Work Phone: Comment on above: PATIENT WAS FASTINGP ERFORMED BY: LETICIA AccertifyAmanda [place]ille [id number] [facility] [id number] Information: [id number] WBC Auto #/vol (Bld) 5.0 {x10E3/uL} Normal 3.4-10.8 [facility] Work Phone: LIPID PANEL ([id number])Ordered B y: Costing Manager on 02-27-2015 Cholesterol in HDL mass conc 57 mg/dL Normal [facility] Work Phone: Comment on above: According to ATP-III Guidelines, HDL-C >59 mg/dL is considered anegative risk factor for CHD. PATIENT WAS FASTINGP ERFORMED BY: AccertifyAmanda [place] [id number] [facility] [id number] Cholesterol in LDL mass conc 151 mg/dL Abnormal 0-99 [facility] Work Phone: Comment on above: PATIENT WAS FASTINGP ERFORMED BY: AccertifyAmanda [place] [id number] [facility] [id number] Cholesterol in LDL/Cholesterol in HDL mass ratio 2.6 {ratio_units} Normal 0.0-3.6 [facility] Work Phone: Comment on above: LDL/HDL Ratio Men Wo men 1/2 Avg.Risk 1.0 1.5 Avg.Risk 3.6 3.2 2X Avg.Risk 6.2 5.0 3X Avg.Risk 8.0 6.1 PATIENT WAS FASTINGP ERFORMED BY: LETICIA LabCoAmanda [place]ille 6135470 [address] Roadbl[address] [place] [id number] Cholesterol in VLDL mass conc 12 mg/dL Normal 5-40 [facility] Work Phone: Comment on above: PATIENT WAS FASTINGP ERFORMED BY: LETICIA Bertrand Otvjmp[address] [facility] HospitalDublin [place] [id number] Cholesterol mass conc 220 mg/dL Abnormal 100-199 Com prehensive Internal Medicine Work Phone: Comment on above: PATIENT WAS FASTINGP ERFORMED BY: LETICIA Lidiasandra CastilloYkpzyx7961 Dob[address] RoadEcu Health Duplin Hospitalin [place] [id number] Triglyceride mass conc 61 mg/dL Normal 0-149 Co mprehensive [facility] Work Phone: Comment on above: PATIENT WAS FASTINGP ERFORMED BY: LETICIA Castillolin[address] [facility] [place] [id number] METABOLIC PANEL, COMPREHENSI VE ([id number])Ordered By: Costing Manager on 02-27-2015 Albumin mass conc 4.4 g/dL Normal 3.6-4.8 Compreh ensive Internal Medicine Work Phone: Comment on above: PATIENT WAS FASTINGP ERFORMED BY: LETICIA Castillolin[address] [facility] [place] [id number] Albumin/Globulin mass ratio 2.1 {ratio} Normal 1.1-2.5 [facility] Work Phone: Comment on above: PATIENT WAS FASTINGP ERFORMED BY: LETICIA LabMj CastilloNcdknl6[address] [facility] [place] [id number] ALP [Catalytic activity/Vol] 67 U/L Normal 39-117 [facility]; [facility] Work Phone: Comment on above: PATIENT WAS FASTINGP ERFORMED BY: LETICIA LabCosandra Melesn[address] [facility] Hospitalblin [place] [id number] ALP enzyme act/vol 67 [iU]/L Normal 39-117 [facility]pre [facility] Internal Medicine Work Phone: Comment on above: PATIENT WAS FASTINGP ERFORMED BY: LETICIA LabCosandra Zmkrdm[address] [facility] HospitalDublin [place] [id number] ALT [Catalytic activity/Vol] 36 U/L Normal 0-44 [facility]; [facility] Work Phone: Comment on above: PATIENT WAS FASTINGP ERFORMED BY: CB [facility] Rqsgoa1464 [address] RoadDublin [place] [id number] ALT enzyme act/vol 36 [iU]/L Normal 0-44 [facility] Internal Medicine Work Phone: Comment on above: PATIENT WAS FASTINGP ERFORMED BY: CB [facility] Ydhvxx6490 [address] RoadDublin [place] [id number] AST [Catalytic activity/Vol] 28 U/L Normal 0-40 [facility]; [facility] Internal Medicine Work Phone: Comment on above: PATIENT WAS FASTINGP ERFORMED BY: [facility] Csfmyz6256 [address] RoadDublin [place] [id number] AST enzyme act/vol 28 [iU]/L Normal 0-40 [facility] Internal Medicine Work Phone: Comment on above: PATIENT WAS FASTINGP ERFORMED BY: [facility] Rmermv7939 [address] RoadDublin [place] [id number] Bilirubin mass conc 0.5 mg/dL Normal 0.0-1.2 Compr ensive Internal Medicine Work Phone: Comment on above: PATIENT WAS FASTINGP ERFORMED BY: [facility] Qzmgui7772 [address] RoadDublin [place] [id number] Calcium mass conc 9.9 mg/dL Normal 8.6-10.2 Compreh ensive Internal Medicine Work Phone: Comment on above: PATIENT WAS FASTINGP ERFORMED BY: [facility] Tabnbx1676 [address] RoadDublin [place] [id number] Chloride molar conc 102 mmol/L Normal 97-108 Compr ensive Internal Medicine Work Phone: Comment on above: PATIENT WAS FASTINGP ERFORMED BY: CB [facility] Zgnawq8569 [address] RoadDublin [place] [id number] CO2 molar conc 25 mmol/L Normal 18-29 Comprehens cl Internal Medicine Work Phone: Comment on above: PATIENT WAS FASTINGP ERFORMED BY: [facility] Aiayuv5589 [address] RoadDublin [place] [id number] Creatinine mass conc 1.17 mg/dL Normal 0.76-1.27 Comp rehensive Internal Medicine Work Phone: Comment on above: PATIENT WAS FASTINGP ERFORMED BY: [facility] Rrqxwk8620 Dob[address] Roadblin [place] [id number] GFR/1.73 sq M predicted among blacks CKD-EPI vol rate/area (S/P/Bld) 74 mL/min/1.73 Normal Comprehe nsive Internal Medicine Work Phone: Comment on above: PATIENT WAS FASTINGP ERFORMED BY: LabH[facility]6370 [address] RoadEcu Health Duplin Hospitalin [place] [id number] GFR/1.73 sq M predicted among non-blacks CKD-EPI vol rate/area (S/P/Bld) 64 mL/min/1.73 Normal [facility] Work Phone: Comment on above: PATIENT WAS FASTINGP ERFORMED BY: LabSaint [facility] Wgbkav4165 Dob[address] RoadEcu Health Duplin Hospitalin [place] [id number] Globulin (S) [Mass/Vol] 2.1 g/dL Normal 1.5-4.5 C omprehensive Internal Medicine Work Phone: Comment on above: PATIENT WAS FASTINGP ERFORMED BY: [facility] Hmugyi[address] [facility] [id number] Globulin Calculated mass conc (S) 2.1 g/dL Normal 1.5-4.5 [facility] Work Phone: Glucose mass conc 83 mg/dL Normal 65-99 Compreh ensive Internal Medicine Work Phone: Comment on above: PATIENT WAS FASTINGP ERFORMED BY: [facility] Jkqcwg[address] [facility] Hospitalblin [place] [id number] Potassium molar conc 4.9 mmol/L Normal 3.5-5.2 Comp rehensive Internal Medicine Work Phone: Comment on above: PATIENT WAS FASTINGP ERFORMED BY: [facility] Chfpzb[address] [facility] [id number] Protein mass conc 6.5 g/dL Normal 6.0-8.5 Compreh ensive Internal Medicine Work Phone: Comment on above: PATIENT WAS FASTINGP ERFORMED BY: LETICIA JeromeMj CastilloKhqfmm3091 [address] RoadDublin [place] [id number] Sodium molar conc 142 mmol/L Normal 134-144 Compreh ensive Internal Medicine Work Phone: Comment on above: PATIENT WAS FASTINGP ERFORMED BY: LETICIA Castillolin[address] [facility]blin [place] [id number] Urea nitrogen mass conc 29 mg/dL Abnormal 8-27 C omprehensive Internal Medicine Work Phone: Comment on above: PATIENT WAS FASTINGP ERFORMED BY: LETICIA Castillolin[address] [facility] [id number] Urea nitrogen/Creatinine mass ratio 25 mg/mg Abnormal 10-22 [facility] Work Phone: Comment on above: PATIENT WAS FASTINGP ERFORMED BY: LETICIA Castillolin6370 [facility] [id number] MICROALBUMINOrdered By: Syst em Pearl Glue Operator on 02-27-2015 Albumin DL <= 20 mg/L mass conc (U) 5.6 ug/mL Normal 0.0-17.0 [facility] Work Phone: Comment on above: PATIENT WAS FASTINGP ERFORMED BY: LETICIA Dougherty[address] [facility] [id number] Albumin/Creatinine mass ratio (U) 5.4 {mg/g_creat} Normal 0.0-30.0 [facility] Work Phone: Comment on above: PATIENT WAS FASTINGP ERFORMED BY: LETICIA LabSaint [facility] Oeoskz[address] [facility] Hospitalblin [place] [id number] Creatinine mass conc (U) 102.8 mg/dL Normal 22.0-328.0 [facility] Work Phone: Comment on above: PATIENT WAS FASTINGP ERFORMED BY: LETICIA LabSaint [facility] Lqkedr[address] [facility] [id number] Microscopic ExaminationOrder ed By: Costing Manager on 02-27-2015 Bacteria LM.HPF #/area (Urine sed) None seen Normal [facility] Work Phone: Comment on above: PATIENT WAS FASTINGP ERFORMED BY: LETICIA [facility] Ekgrmy[address] [facility]in [place] [id number] Epithelial cells LM.HPF #/area (Urine sed) 0-10 Normal 0 - 10 [facility] Work Phone: Comment on above: PATIENT WAS FASTINGP ERFORMED BY: LETICIA [facility] Vuxdsb[address] [facility]bl[facility] [place] [id number] Mucus LM Ql (Urine sed) Present Normal C omprehensive Internal Medicine Work Phone: Mucus Ql (Urine sed) Present Normal Comp rehensive Internal Medicine Work Phone: Comment on above: PATIENT WAS FASTINGP ERFORMED BY: LETICIA LabCosandra Dybbfr[address] [facility]in [place] [id number] RBC LM.HPF #/area (Urine sed) None seen Normal 0 - 2 [facility] Work Phone: Comment on above: PATIENT WAS FASTINGP ERFORMED BY: LETICIA [facility] Xscqcc[address] [facility]in [place] [id number] WBC LM.HPF #/area (Urine sed) 0-5 Normal 0 - 5 [facility] Work Phone: Comment on above: PATIENT WAS FASTINGP ERFORMED BY: LETICIA [facility] Gttsni[address] [facility]in [place] [id number] TSH ([id number])Ordered By: Jobstere m Pearl Glue Operator on 02-27-2015 Thyrotropin Qn 3.280 {uIU/mL} Normal 0.450-4.50 0 [facility] Work Phone: Comment on above: PATIENT WAS FASTINGP ERFORMED BY: LETICIA [facility] Qsopsa[address] [facility]in [place] [id number] URINALYSIS, W/ MICRO ([id number]) Ordered By: Costing Manager on 02-27-2015 Appearance Nom (U) Clear Normal Compre hensive Internal Medicine Work Phone: Comment on above: PATIENT WAS FASTINGP ERFORMED BY: LETICIA [facility] Fdipai7231 [address] RoadDublin [place] [id number] Bilirubin Ql (U) Negative Normal Comprehe nsive Internal Medicine Work Phone: Comment on above: PATIENT WAS FASTINGP ERFORMED BY: LETICIA [facility] Mjzyou5528 Dobsb RoadDublin [place] [id number] Bilirubin Ql (U) Negative Normal Comprehe nsive Internal Medicine; [facility] Work Phone: Comment on above: PATIENT WAS FASTINGP ERFORMED BY: LETICIA [facility] Dfnhei5909 [address] RoadDublin [place] [id number] Color Nom (U) Yellow Normal Comprehensi ve Internal Medicine Work Phone: Comment on above: PATIENT WAS FASTINGP ERFORMED BY: LETICIA [facility] Bpwvke6126 [address] RoadDublin [place] [id number] Glucose Ql (U) Negative Normal Comprehens cl Internal Medicine Work Phone: Comment on above: PATIENT WAS FASTINGP ERFORMED BY: LETICIA [facility] Cztsxc5420 [address] RoadDublin [place] [id number] Glucose Ql (U) Negative Normal Comprehens cl Internal Medicine; [facility] Work Phone: Comment on above: PATIENT WAS FASTINGP ERFORMED BY: LETICIA [facility] Vbxtje0321 [address] RoadDublin [place] [id number] Hemoglobin Ql (U) Negative Normal Compreh ensive Internal Medicine Work Phone: Comment on above: PATIENT WAS FASTINGP ERFORMED BY: LETICIA [facility] Stmykm6554 [address] RoadDublin [place] [id number] Hemoglobin Ql (U) Negative Normal Compreh ensive Internal Medicine; [facility] Work Phone: Comment on above: PATIENT WAS FASTINGP ERFORMED BY: LETICIA [facility] Utldus3504 [address] RoadDublin [place] [id number] Hemoglobin Test strip Ql (U) Negative Normal [facility] Work Phone: Ketones Ql (U) Negative Normal Comprehens cl [facility] Medicine Work Phone: Comment on above: PATIENT WAS FASTINGP ERFORMED BY: LETICIA [facility] Hpllgs6623 [address] RoadDublin [place] [id number] Ketones Ql (U) Negative Normal Comprehens cl Internal Medicine; [facility] Work Phone: Comment on above: PATIENT WAS FASTINGP ERFORMED BY: LETICIA [facility] Ttwxcs4526 [address] RoadDublin [place] [id number] Leukocyte esterase Test strip Ql (U) Negative Normal [facility] Work Phone: Comment on above: PATIENT WAS FASTINGP ERFORMED BY: LETICIA [facility] Dihtfi4750 [address] RoadDublin [place] [id number] Leukocyte esterase Test strip Ql (U) Negative Normal [facility]; [facility] Work Phone: Comment on above: PATIENT WAS FASTINGP ERFORMED BY: LETICIA Castillolin6370 [address] RoadDublin [place] [id number] Microscopic observation LM Nom (Urine sed) MICRON Normal [facility] Work Phone: Comment on above: Microscopic follows if indicated. PATIENT WAS FASTINGP ERFORMED BY: LETICIA [facility] Jzwtgo5535 [address] RoadDublin [place] [id number] Microscopic observation LM Nom (Urine sed) See below: Normal [facility] Work Phone: Comment on above: Microscopic was kiana cated and was performed. PATIENT WAS FASTINGP ERFORMED BY: LETICIA [facility] Qzchdk7628 [address] RoadDublin [place] [id number] Nitrite Ql (U) Negative Normal Comprehens cl Internal Medicine Work Phone: Comment on above: PATIENT WAS FASTINGP ERFORMED BY: LETICIA [facility] Cpzesh8762 [address] RoadDublin [place] [id number] Nitrite Ql (U) Negative Normal Comprehens cl Internal Medicine; [facility] Work Phone: Comment on above: PATIENT WAS FASTINGP ERFORMED BY: LETICIA [facility] Gcattj0790 [address] RoadDublin [place] [id number] Nitrite Test strip Ql (U) Negative Normal [facility] Work Phone: pH (U) 7.5 [pH] Normal 5.0-7.5 [facility] Work Phone: Comment on above: PATIENT WAS FASTINGP ERFORMED BY: [facility] Gkbqhs9013 [address] RoadDublin [place] [id number] pH Test strip (U) 7.5 [pH] Normal 5.0-7.5 Compreh ensive Internal Medicine Work Phone: Protein Ql (U) Trace Normal Comprehens cl Internal Medicine Work Phone: Comment on above: PATIENT WAS FASTINGP ERFORMED BY: LabG[facility] [employer] Uzoueq0302 [address] RoadDublin [place] [id number] Protein Test strip Ql (U) Trace Normal [facility] Work Phone: Specific gravity Relative Density (U) 1.019 1 Normal 1.005-1.03 0 [facility] Work Phone: Comment on above: PATIENT WAS FASTINGP ERFORMED BY: LabG[employer] Pfmwxv7026 [address] RoadDublin [place] [id number] Urobilinogen (U) [Mass/Vol] 0.2 mg/dL Normal 0.2-1.0 [facility]; [facility] Work Phone: Comment on above: PATIENT WAS FASTINGP ERFORMED BY: LabGrey Orange Roboticsrp Znzvok3099 [address] RoadDublin [place] [id number] Urobilinogen Test strip mass conc (U) 0.2 mg/dL Normal 0.2-1.0 [facility] Work Phone: Comment on above: PATIENT WAS FASTINGP ERFORMED BY: [facility] Kzfoat1340 [address] RoadDublin [place] [id number] CALCIFIDIOL (33115) VIT D 25 Ordered By: Costing Manager on 11-20-2014 25-Hydroxyvitamin D2+25-Hydroxyvitamin D3 mass conc 82.7 ng/mL Normal 30.0-100.0 [facility] Work Phone: Comment on above: Vitamin D deficiency has been defined by the [place] ofMedicine and an Endocrine Society practice guideline as alevel of serum 25-OH vitamin D less than 20 ng/mL (1,2).The Endocrine Society went on to further define vitamin Dinsufficiency as a level between 21 and 29 ng/mL (2).1. IOM ([place] of Medicine). 2010. Dietary reference intakes for calcium and D. [place]: The National Academies Press.2. Claudio MF, [place], Leonid RANDOLPH, et al. Evaluation, treatment, and prevention of vitamin D deficiency: an Endocrine Society clinical practice guideline. JCEM. 2010; 96(7):1911-30. PATIENT WAS FASTINGP ERFORMED BY: Tackle Grab6370 wmblyin [place] [id number] LIPID PANEL (95022)Ordered B y: Costing Manager on 11-20-2014 Cholesterol in HDL mass conc 57 mg/dL Normal [facility] Work Phone: Comment on above: According to ATP-III Guidelines, HDL-C >59 mg/dL is considered anegative risk factor for CHD. PATIENT WAS FASTINGP ERFORMED BY: HabitRPG [facility] Zehlol2283 wmblyAtrium Health Kannapolis [id number] Information: [id number],[id number]; apt. 9-22-15 Cholesterol in LDL mass conc 157 mg/dL Abnormal 0-99 [facility] Work Phone: Comment on above: PATIENT WAS FASTINGP ERFORMED BY: HabitRPG LabGrey Orange Roboticsrp Oegdgz3037 U [employer] It - Smartphone RFIDWilson Medical Center [id number] Information: [id number]; apt. 9-22-15 Cholesterol in LDL/Cholesterol in HDL mass ratio 2.8 {ratio_units} Normal 0.0-3.6 [facility] Work Phone: Comment on above: LDL/HDL Ratio Men Wo men 1/2 Avg.Risk 1.0 1.5 Avg.Risk 3.6 3.2 2X Avg.Risk 6.2 5.0 3X Avg.Risk 8.0 6.1 PATIENT WAS FASTINGP ERFORMED BY: HabitRPG [employer]Co[employer] Dhioxn7343 [facility] [id number] Information: [id number]; apt. 11-27-14 Cholesterol in VLDL mass conc 12 mg/dL Normal 5-40 [facility] Work Phone: Comment on above: PATIENT WAS FASTINGP ERFORMED BY: LETICIA Murillo Uvgnuy9548 [facility] [id number] Information: [id number],[id number]; apt. 11-27-14 Cholesterol mass conc 226 mg/dL Abnormal 100-199 [facility] prehensive Internal Medicine Work Phone: Comment on above: PATIENT WAS FASTINGP ERFORMED BY: LabNichole Ville 3365170 [facility] [id number] Information: [id number],[id number]; apt. 11-27-14 Triglyceride mass conc 58 mg/dL Normal 0-149 [facility] Internal Medicine Work Phone: Comment on above: PATIENT WAS FASTINGP ERFORMED BY: [address] [id number] Information: [id number]; apt. 11-27-14 Lipid Panel With LDL/HDL Rat ioOrdered By: Costing Manager on 07-16-2014 Cholesterol in HDL mass conc 56 mg/dL Normal [facility] Work Phone: Comment on above: According to ATP-III Guidelines, HDL-C >59 mg/dL is considered anegative risk factor for CHD. PATIENT NOT FASTINGP ERFORMED BY: [facility]6370 [facility] [id number] Information: [id number],[id number] Cholesterol in LDL mass conc 163 mg/dL Abnormal 0-99 [facility] Work Phone: Comment on above: PATIENT NOT FASTINGP ERFORMED BY: [place] [id number] [facility] [id number] Information: [id number],[id number] Cholesterol in LDL/Cholesterol in HDL mass ratio 2.9 {ratio_units} Normal 0.0-3.6 [facility] Work Phone: Comment on above: LDL/HDL Ratio Men Wo men 1/2 Avg.Risk 1.0 1.5 Avg.Risk 3.6 3.2 2X Avg.Risk 6.2 5.0 3X Avg.Risk 8.0 6.1 PATIENT NOT FASTINGP ERFORMED BY: LETICIA LabCosandra Osvfpy3050 [address] RoadDublin [place] [id number] Information: [id number] Cholesterol in VLDL mass conc 15 mg/dL Normal 5-40 [facility] Work Phone: Comment on above: PATIENT NOT FASTINGP ERFORMED BY: CB [facility] Ycmczw5371 [address] RoadDublin [place] [id number] Information: [id number] Cholesterol mass conc 234 mg/dL Abnormal 100-199 [facility] Internal Medicine Work Phone: Comment on above: PATIENT NOT FASTINGP ERFORMED BY: LETICIA [facility] Udujel5815 [address] RoadDublin [place] [id number] Information: [id number] Triglyceride mass conc 77 mg/dL Normal 0-149 [facility] Internal Medicine Work Phone: Comment on above: PATIENT NOT FASTINGP ERFORMED BY: LETICIA [facility] Mxzysz1360 [address] RoadDublin [place] [id number] Information: [id number] TSHOrdered By: System Manage r on 07-16-2014 Thyrotropin Qn 4.230 {uIU/mL} Normal 0.450-4.50 0 [facility] Work Phone: Comment on above: PATIENT NOT FASTINGP ERFORMED BY: LETICIA [facility] Dxzcpz4450 [address] RoadDublin [place] [id number] Vitamin D, 25-HydroxyOrdered By: Costing Manager on 07-16-2014 25-Hydroxyvitamin D2+25-Hydroxyvitamin D3 mass conc 30.6 ng/mL Normal 30.0-100.0 [facility] Internal Medicine Work Phone: Comment on above: Vitamin D deficiency has been defined by the [place] ofMedicine and an Endocrine Society practice guideline as alevel of serum 25-OH vitamin D less than 20 ng/mL (1,2).The Endocrine Society went on to further define vitamin Dinsufficiency as a level between 21 and 29 ng/mL (2).1. IOM ([place] of Medicine). 2010. Dietary reference intakes for calcium and D. [place]: The National Academies Press.2. Claudio MF, Kamilla ZIEGLER, Leonid RANDOLPH, et al. Evaluation, treatment, and prevention of vitamin D deficiency: an Endocrine Society clinical practice guideline. JCEM. 2010; 96(7):1911-30. PATIENT NOT FASTINGP ERFORMED BY: Tackle Grab[address] [place] [id number] FECAL OCCULT- Tubes sent marina e ([id number])Ordered By: Kitty Garcia on 04-06-2014 Hemoglobin.gastrointest inal Ql (St) Negative Normal [facility] Work Phone: FECAL OCCULT- Tubes sent marina e ([phone])on 04-06-2014 Hemoglobin.gastrointest inal Ql (Stl) Negative Normal [facility]; [facility] Work Phone: PSA (PROSTATE SPECIFIC ANTIG EN) (V76.44)Ordered By: Costing Manager on 04-06-2014 Prostate specific Ag mass conc 1.1 ng/mL Normal 0.0-4.0 [facility] Work Phone: Comment on above: Justen ECLIA methodol ogy. .According to the [place] [employer], Serum PSA shoulddecrease and remain at undetectable levels after radicalprostatectomy. The AUA defines biochemical recurrence as an initialPSA value 0.2 ng/mL or greater followed by a subsequent confirmatoryPSA value 0.2 ng/mL or greater.Values obtained with different assay methods or kits cannot be usedinterchangeably. Results cannot be interpreted as absolute evidenceof the presence or absence of malignant disease. PATIENT NOT FASTINGP ERFORMED BY: Tackle Grab6370 wmblyAtrium Health Kannapolis [id number] Information: [id number] CBC W/AUTO DIFF WBC (52678)O rdered By: Costing Manager on 03-26-2014 Basophils (Bld) [#/Vol] 0.0 {x10E3/uL} Normal 0.0-0.2 [facility] Work Phone: Comment on above: PATIENT WAS FASTINGP ERFORMED BY: [place] [id number] [facility] [id number] Information: [id number] Basophils (Bld) [#/Vol] 0.0 10*3/uL Normal 0.0-0.2 [facility]; [facility] Work Phone: Comment on above: PATIENT WAS FASTINGP ERFORMED BY: [address] [id number] Information: [id number] Basophils Auto #/vol (Bld) 0.0 {x10E3/uL} Normal 0.0-0.2 [facility] Work Phone: Basophils/100 WBC (Bld) 1 % Normal [facility] Internal Medicine Work Phone: Comment on above: PATIENT WAS FASTINGP ERFORMED BY: [address] [id number] Information: [id number] Basophils/100 WBC Auto (Bld) 1 % Normal [facility] Work Phone: Eosinophils (Bld) [#/Vol] 0.3 {x10E3/uL} Normal 0.0-0.4 [facility] Work Phone: Comment on above: PATIENT WAS FASTINGP ERFORMED BY: [address] [id number] Information: [id number] Eosinophils (Bld) [#/Vol] 0.3 10*3/uL Normal 0.0-0.4 [facility]; [facility] Work Phone: Comment on above: PATIENT WAS FASTINGP ERFORMED BY: [place] [id number] [facility] [id number] Information: [id number] Eosinophils Auto #/vol (Bld) 0.3 {x10E3/uL} Normal 0.0-0.4 [facility] Work Phone: Eosinophils/100 WBC (Bld) 6 % Normal [facility] Work Phone: Comment on above: PATIENT WAS FASTINGP ERFORMED BY: LETICIA [facility] Xzdkdk7602 [facility] [id number] Information: [id number] Eosinophils/100 WBC Auto (Bld) 6 % Normal [facility] Work Phone: Erythrocyte distribution width (RBC) [Ratio] 14.5 % Normal 12.3-15.4 [facility] Work Phone: Comment on above: PATIENT WAS FASTINGP ERFORMED BY: LETICIA [address] [id number] Information: [id number] Erythrocyte distribution width Auto Ratio (RBC) 14.5 % Normal 12.3-15.4 [facility] Work Phone: Hematocrit (Bld) [Volume fraction] 42.2 % Normal 37.5-51.0 [facility] Work Phone: Comment on above: PATIENT WAS FASTINGP ERFORMED BY: LETICIA [address] [id number] Information: [id number] Hematocrit Auto Volume Fraction (Bld) 42.2 % Normal 37.5-51.0 [facility] Work Phone: Hemoglobin mass conc (Bld) 14.3 g/dL Normal 12.6-17.7 [facility] Work Phone: Comment on above: PATIENT WAS FASTINGP ERFORMED BY: [place] [id number] [facility] [id number] Information: [id number] Immature granulocytes #/vol (Bld) 0.0 {x10E3/uL} Normal 0.0-0.1 [facility] Work Phone: Comment on above: PATIENT WAS FASTINGP ERFORMED BY: [address] [id number] Information: [id number] Immature granulocytes (Bld) [#/Vol] 0.0 10*3/uL Normal 0.0-0.1 [facility]; [facility] Work Phone: Comment on above: PATIENT WAS FASTINGP ERFORMED BY: [place] [id number] [facility] [id number] Information: [id number] Immature granulocytes/100 WBC (Bld) 0 % Normal [facility] Work Phone: Comment on above: PATIENT WAS FASTINGP ERFORMED BY: [address] [id number] Information: [id number] Lymphocytes (Bld) [#/Vol] 1.7 {x10E3/uL} Normal 0.7-3.1 [facility] Work Phone: Comment on above: PATIENT WAS FASTINGP ERFORMED BY: [address] [id number] Information: [id number] Lymphocytes (Bld) [#/Vol] 1.7 10*3/uL Normal 0.7-3.1 [facility]; [facility] Work Phone: Comment on above: PATIENT WAS FASTINGP ERFORMED BY: [address] [id number] Information: [id number] Lymphocytes Auto #/vol (Bld) 1.7 {x10E3/uL} Normal 0.7-3.1 [facility] Work Phone: Lymphocytes/100 WBC (Bld) 31 % Normal [facility] Work Phone: Comment on above: PATIENT WAS FASTINGP ERFORMED BY: [address] [id number] Information: [id number] Lymphocytes/100 WBC Auto (Bld) 31 % Normal [facility] Work Phone: MCH (RBC) [Entitic mass] 28.3 pg Normal 26.6-33.0 [facility] Work Phone: Comment on above: PATIENT WAS FASTINGP ERFORMED BY: LETICIA [facility] HospitalMj CastilloXhxbyo8842 [facility] [id number] Information: [id number] MCH Auto Entitic mass (RBC) 28.3 pg Normal 26.6-33.0 [facility] Work Phone: MCHC (RBC) [Mass/Vol] 33.9 g/dL Normal 31.5-35.7 [facility] Internal Medicine Work Phone: Comment on above: PATIENT WAS FASTINGP ERFORMED BY: LETICIA [address] [id number] Information: [id number] MCHC Auto mass conc (RBC) 33.9 g/dL Normal 31.5-35.7 [facility] Work Phone: MCV (RBC) [Entitic vol] 83 fL Normal 79-97 [facility] Internal Medicine Work Phone: Comment on above: PATIENT WAS FASTINGP ERFORMED BY: LETICIA [address] [id number] Information: [id number] MCV Auto Entitic volume (RBC) 83 fL Normal 79-97 [facility] Internal Medicine Work Phone: Monocytes (Bld) [#/Vol] 0.4 {x10E3/uL} Normal 0.1-0.9 [facility] Work Phone: Comment on above: PATIENT WAS FASTINGP ERFORMED BY: LETICIA [place] [id number] [facility] [id number] Information: [id number] Monocytes (Bld) [#/Vol] 0.4 10*3/uL Normal 0.1-0.9 [facility]; [facility] Work Phone: Comment on above: PATIENT WAS FASTINGP ERFORMED BY: LETICIA [address]Dublin [place] [id number] Information: [id number] Monocytes Auto #/vol (Bld) 0.4 {x10E3/uL} Normal 0.1-0.9 [facility] Work Phone: Monocytes/100 WBC (Bld) 8 % Normal C omprehensive Internal Medicine Work Phone: Comment on above: PATIENT WAS FASTINGP ERFORMED BY: LETICIA [place] [id number] [facility] [id number] Information: [id number] Monocytes/100 WBC Auto (Bld) 8 % Normal [facility] Work Phone: Neutrophils (Bld) [#/Vol] 3.1 {x10E3/uL} Normal 1.4-7.0 [facility] Work Phone: Comment on above: PATIENT WAS FASTINGP ERFORMED BY: LETICIA [place] [id number] [facility] [id number] Information: [id number] Neutrophils (Bld) [#/Vol] 3.1 10*3/uL Normal 1.4-7.0 [facility]; [facility] Work Phone: Comment on above: PATIENT WAS FASTINGP ERFORMED BY: LETICIA [facility]6370 [facility] [id number] Information: [id number] Neutrophils Auto #/vol (Bld) 3.1 {x10E3/uL} Normal 1.4-7.0 [facility] Work Phone: Neutrophils/100 WBC (Bld) 54 % Normal [facility] Work Phone: Comment on above: PATIENT WAS FASTINGP ERFORMED BY: [place] [id number] [facility] [id number] Information: [id number] Neutrophils/100 WBC Auto (Bld) 54 % Normal [facility] Work Phone: Platelets (Bld) [#/Vol] 161 {x10E3/uL} Normal 150-379 [facility] Work Phone: Comment on above: PATIENT WAS FASTINGP ERFORMED BY: LETICIA Lidia Iokygq9329 [facility] [id number] Information: [id number] Platelets (Bld) [#/Vol] 161 10*3/uL Normal 150-379 [facility]; [facility] Work Phone: Comment on above: PATIENT WAS FASTINGP ERFORMED BY: LETICIA [facility] Cuoess8154 [facility] [id number] Information: [id number] Platelets Auto #/vol (Bld) 161 {x10E3/uL} Normal 150-379 [facility] Work Phone: RBC (Bld) [#/Vol] 5.06 {x10E6/uL} Normal 4.14-5.80 [facility] Internal Medicine Work Phone: Comment on above: PATIENT WAS FASTINGP ERFORMED BY: LETICIA [facility] Jnueyq5310 [facility] [id number] Information: [id number] RBC (Bld) [#/Vol] 5.06 10*6/uL Normal 4.14-5.80 [facility] Internal Medicine; [facility] Work Phone: Comment on above: PATIENT WAS FASTINGP ERFORMED BY: LETICIA [place] [id number] [facility] [id number] Information: [id number] RBC Auto #/vol (Bld) 5.06 {x10E6/uL} Normal 4.14-5.80 [facility] Work Phone: WBC (Bld) [#/Vol] 5.6 {x10E3/uL} Normal 3.4-10.8 [facility] Internal Medicine Work Phone: Comment on above: PATIENT WAS FASTINGP ERFORMED BY: LETICIA [place] [id number] [facility] [id number] Information: [id number] WBC (Bld) [#/Vol] 5.6 10*3/uL Normal 3.4-10.8 [facility]; [facility] Work Phone: Comment on above: PATIENT WAS FASTINGP ERFORMED BY: LETICIA Lidiasandra Hagcvq8147 [facility] [id number] Information: [id number] WBC Auto #/vol (Bld) 5.6 {x10E3/uL} Normal 3.4-10.8 [facility] Work Phone: LIPID PANEL ([id number])Ordered B y: Costing Manager on 03-26-2014 Cholesterol in HDL mass conc 53 mg/dL Normal [facility] Work Phone: Comment on above: According to ATP-III Guidelines, HDL-C >59 mg/dL is considered anegative risk factor for CHD. PATIENT WAS FASTINGP ERFORMED BY: LETICIA Castillolin6370 [facility] [id number] Cholesterol in LDL mass conc 158 mg/dL Abnormal 0-99 [facility] Work Phone: Comment on above: PATIENT WAS FASTINGP ERFORMED BY: LETICIA Castillolin6370 [facility] [id number] Cholesterol in LDL/Cholesterol in HDL mass ratio 3.0 {ratio_units} Normal 0.0-3.6 [facility] Work Phone: Comment on above: LDL/HDL Ratio Men Wo men 1/2 Avg.Risk 1.0 1.5 Avg.Risk 3.6 3.2 2X Avg.Risk 6.2 5.0 3X Avg.Risk 8.0 6.1 PATIENT WAS FASTINGP ERFORMED BY: LETICIA LabTomássandra Mmpcns3271 [facility] [id number] Cholesterol in VLDL mass conc 15 mg/dL Normal 5-40 [facility] Work Phone: Comment on above: PATIENT WAS FASTINGP ERFORMED BY: LETICIA JeromeMj CastilloYssped6766 [facility] [id number] Cholesterol mass conc 226 mg/dL Abnormal 100-199 Com prehensive Internal Medicine Work Phone: Comment on above: PATIENT WAS FASTINGP ERFORMED BY: LETICIA [facility] Yrofpc5791 [address] RoadDublin [place] [id number] Triglyceride mass conc 73 mg/dL Normal 0-149 Co mprehensive [facility] Work Phone: Comment on above: PATIENT WAS FASTINGP ERFORMED BY: CB [facility] Xhkajf7633 [address] RoadDublin [place] [id number] METABOLIC PANEL, COMPREHENSI VE ([id number])Ordered By: Costing Manager on 03-26-2014 Albumin mass conc 4.4 g/dL Normal 3.6-4.8 [facility] Internal Medicine Work Phone: Comment on above: PATIENT WAS FASTINGP ERFORMED BY: LETICIA [facility] Ypbhbz4100 [address] RoadDublin [place] [id number] Albumin/Globulin mass ratio 2.3 {ratio} Normal 1.1-2.5 [facility] Work Phone: Comment on above: PATIENT WAS FASTINGP ERFORMED BY: LETICIA [facility] Fosccc7379 [address] RoadDublin [place] [id number] ALP [Catalytic activity/Vol] 68 U/L Normal 39-117 [facility]; [facility] Work Phone: Comment on above: PATIENT WAS FASTINGP ERFORMED BY: [facility] Dbpujq0717 Dob[address] RoadDublin [place] [id number] ALP enzyme act/vol 68 [iU]/L Normal 39-117 [facility] Internal Medicine Work Phone: Comment on above: PATIENT WAS FASTINGP ERFORMED BY: CB [facility] Dndeku9370 [address] RoadDublin [place] [id number] ALT [Catalytic activity/Vol] 17 U/L Normal 0-44 [facility]; [facility] Work Phone: Comment on above: PATIENT WAS FASTINGP ERFORMED BY: CB [facility] Kbsltv6104 [address] RoadDublin [place] [id number] ALT enzyme act/vol 17 [iU]/L Normal 0-44 [facility] Internal Medicine Work Phone: Comment on above: PATIENT WAS FASTINGP ERFORMED BY: LETICIA [facility] Bmqmum6017 Dob[address] RoadDublin [place] [id number] AST [Catalytic activity/Vol] 17 U/L Normal 0-40 [facility]; [facility] Work Phone: Comment on above: PATIENT WAS FASTINGP ERFORMED BY: CB [facility] Awqgfj0589 [address] RoadDublin [place] [id number] AST enzyme act/vol 17 [iU]/L Normal 0-40 [facility] Internal Medicine Work Phone: Comment on above: PATIENT WAS FASTINGP ERFORMED BY: LETICIA [facility] Izhryt6319 [address] RoadDublin [place] [id number] Bilirubin mass conc 0.4 mg/dL Normal 0.0-1.2 Compr ensive Internal Medicine Work Phone: Comment on above: PATIENT WAS FASTINGP ERFORMED BY: LETICIA [facility] Fzyfny9064 Dob[address] RoadDublin [place] [id number] Calcium mass conc 9.7 mg/dL Normal 8.6-10.2 Compreh ensive Internal Medicine Work Phone: Comment on above: Please note refere nce interval change PATIENT WAS FASTINGP ERFORMED BY: LETICIA [facility] Ihvnnz7238 [address] RoadDublin [place] [id number] Chloride molar conc 102 mmol/L Normal 97-108 Compr ensive Internal Medicine Work Phone: Comment on above: PATIENT WAS FASTINGP ERFORMED BY: LETICIA [facility] Rchauz6608 [address] RoadDublin [place] [id number] CO2 molar conc 24 mmol/L Normal 18-29 Comprehens cl Internal Medicine Work Phone: Comment on above: PATIENT WAS FASTINGP ERFORMED BY: LETICIA [facility] Qkqcgo8202 [address] RoadDublin [place] [id number] Creatinine mass conc 1.19 mg/dL Normal 0.76-1.27 Comp rehensive Internal Medicine Work Phone: Comment on above: PATIENT WAS FASTINGP ERFORMED BY: LETICIA [facility] Agekza8295 [address] RoadDublin [place] [id number] GFR/1.73 sq M predicted among blacks CKD-EPI vol rate/area (S/P/Bld) 73 mL/min/1.73 Normal Comprehe nsive Internal Medicine Work Phone: Comment on above: PATIENT WAS FASTINGP ERFORMED BY: LETICIA [facility] Biejde1743 Dob[address] Roadblin [place] [id number] GFR/1.73 sq M predicted among non-blacks CKD-EPI vol rate/area (S/P/Bld) 63 mL/min/1.73 Normal [facility] Work Phone: Comment on above: PATIENT WAS FASTINGP ERFORMED BY: LETICIA [facility] Fqpila[address] [facility]in [place] [id number] Globulin (S) [Mass/Vol] 1.9 g/dL Normal 1.5-4.5 C omprehensive Internal Medicine Work Phone: Comment on above: PATIENT WAS FASTINGP ERFORMED BY: LETICIA [facility] Xqxqud82[address] [facility] [place] [id number] Globulin Calculated mass conc (S) 1.9 g/dL Normal 1.5-4.5 [facility] Work Phone: Glucose mass conc 89 mg/dL Normal 65-99 Compreh ensive Internal Medicine Work Phone: Comment on above: PATIENT WAS FASTINGP ERFORMED BY: LETICIA [facility] Bwhfvu59[address] [facility] [id number] Potassium molar conc 4.6 mmol/L Normal 3.5-5.2 Comp rehensive Internal Medicine Work Phone: Comment on above: PATIENT WAS FASTINGP ERFORMED BY: LETICIA [facility] Ezunma[address] [facility]in [place] [id number] Protein mass conc 6.3 g/dL Normal 6.0-8.5 Compreh ensive Internal Medicine Work Phone: Comment on above: PATIENT WAS FASTINGP ERFORMED BY: [facility] Xdmyam[address] [facility] [id number] Sodium molar conc 141 mmol/L Normal 134-144 Compreh ensive Internal Medicine Work Phone: Comment on above: PATIENT WAS FASTINGP ERFORMED BY: LETICIA JeromeMj CastilloJqvwal1569 Dob[address] Roadblin [place] [id number] Urea nitrogen mass conc 24 mg/dL Normal 8-27 C omprehensive Internal Medicine Work Phone: Comment on above: PATIENT WAS FASTINGP ERFORMED BY: LETICIA Castillolin6370 [address]blin [place] [id number] Urea nitrogen/Creatinine mass ratio 20 mg/mg Normal 10-22 [facility] Work Phone: Comment on above: PATIENT WAS FASTINGP ERFORMED BY: LETICIA Castillolin[address] [facility]in [place] [id number] MICROALBUMINOrdered By: Syst em Pearl Glue Operator on 03-26-2014 Albumin DL <= 20 mg/L mass conc (U) 8.2 ug/mL Normal 0.0-17.0 [facility] Work Phone: Comment on above: PATIENT WAS FASTINGP ERFORMED BY: LETICIA Castillolin[address] [facility] [place] [id number] Albumin/Creatinine mass ratio (U) 6.7 {mg/g_creat} Normal 0.0-30.0 [facility] Work Phone: Comment on above: PATIENT WAS FASTINGP ERFORMED BY: LETICIA Castillolin[address] [facility] [id number] Creatinine mass conc (U) 122.9 mg/dL Normal 22.0-328.0 [facility] Work Phone: Comment on above: PATIENT WAS FASTINGP ERFORMED BY: LETICIA Castillolin[address] [facility]in [place] [id number] Microscopic ExaminationOrder ed By: Costing Manager on 03-26-2014 Bacteria LM.HPF #/area (Urine sed) None seen Normal [facility] Work Phone: Comment on above: PATIENT WAS FASTINGP ERFORMED BY: LETICIA Castillolin6370 [address]Dublin [place] [id number] Epithelial cells LM.HPF #/area (Urine sed) 0-10 Normal 0 - 10 [facility] Work Phone: Comment on above: PATIENT WAS FASTINGP ERFORMED BY: LETICIA [facility] Bjxboh8385 [address] RoadDublin [place] [id number] Mucus LM Ql (Urine sed) Present Normal C omprehensive Internal Medicine Work Phone: Mucus Ql (Urine sed) Present Normal Comp rehensive Internal Medicine Work Phone: Comment on above: PATIENT WAS FASTINGP ERFORMED BY: LETICIA [facility] Kthglu3662 [address] RoadDublin [place] [id number] RBC LM.HPF #/area (Urine sed) None seen Normal 0 - 2 [facility] Work Phone: Comment on above: PATIENT WAS FASTINGP ERFORMED BY: LETICIA [facility] Yuysvy1435 [address] RoadDublin [place] [id number] WBC LM.HPF #/area (Urine sed) 0-5 Normal 0 - 5 [facility] Work Phone: Comment on above: PATIENT WAS FASTINGP ERFORMED BY: LETICIA [facility] Wxukyi7338 [address] Roadblin [place] [id number] TSH ([id number])Ordered By: Syste m Pearl Glue Operator on 03-26-2014 Thyrotropin Qn 3.840 {uIU/mL} Normal 0.450-4.50 0 [facility] Work Phone: Comment on above: PATIENT WAS FASTINGP ERFORMED BY: LETICIA [facility] Cixxpt6398 [address] RoadDublin [place] [id number] URINALYSIS, W/ MICRO ([id number]) Ordered By: Costing Manager on 03-26-2014 Appearance Nom (U) Clear Normal Compre hensive Internal Medicine Work Phone: Comment on above: PATIENT WAS FASTINGP ERFORMED BY: LETICIA [facility] Pirzry6034 [address] RoadDublin [place] [id number] Bilirubin Ql (U) Negative Normal Comprehe nsive Internal Medicine Work Phone: Comment on above: PATIENT WAS FASTINGP ERFORMED BY: LETICIA [facility]6370 [address]Dublin [place] [id number] Bilirubin Ql (U) Negative Normal Comprehe nsive Internal Medicine; [facility] Work Phone: Comment on above: PATIENT WAS FASTINGP ERFORMED BY: LETICIA [facility] Xfjayk1322 [address] RoadDublin [place] [id number] Color Nom (U) Yellow Normal Comprehensi ve Internal Medicine Work Phone: Comment on above: PATIENT WAS FASTINGP ERFORMED BY: LETICIA [facility] Wmjioy7381 [address] RoadDublin [place] [id number] Glucose Ql (U) Negative Normal Comprehens cl Internal Medicine Work Phone: Comment on above: PATIENT WAS FASTINGP ERFORMED BY: LETICIA [facility] Tbpnof8432 [address] RoadDublin [place] [id number] Glucose Ql (U) Negative Normal Comprehens cl Internal Medicine; [facility] Work Phone: Comment on above: PATIENT WAS FASTINGP ERFORMED BY: LETICIA [facility] Mebrxu4824 [address] RoadDublin [place] [id number] Hemoglobin Ql (U) Negative Normal Compreh ensive Internal Medicine Work Phone: Comment on above: PATIENT WAS FASTINGP ERFORMED BY: LETICIA [facility] Znnbeb5792 [address] RoadDublin [place] [id number] Hemoglobin Ql (U) Negative Normal Compreh ensive Internal Medicine; [facility] Work Phone: Comment on above: PATIENT WAS FASTINGP ERFORMED BY: [facility]6[address] RoadDublin [place] [id number] Hemoglobin Test strip Ql (U) Negative Normal [facility] Work Phone: Ketones Ql (U) Negative Normal Comprehens cl Internal Medicine Work Phone: Comment on above: PATIENT WAS FASTINGP ERFORMED BY: LETICIA [facility] Fdcptx0231 Dobbs RoadDublin [place] [id number] Ketones Ql (U) Negative Normal Comprehens cl Internal Medicine; [facility] Work Phone: Comment on above: PATIENT WAS FASTINGP ERFORMED BY: LETICIA [facility] Uvtxdt1011 [address] RoadDublin [place] [id number] Leukocyte esterase Test strip Ql (U) Negative Normal [facility] Work Phone: Comment on above: PATIENT WAS FASTINGP ERFORMED BY: LETICIA [facility] Gaftvi8664 [address] RoadDublin [place] [id number] Leukocyte esterase Test strip Ql (U) Negative Normal [facility]; [facility] Work Phone: Comment on above: PATIENT WAS FASTINGP ERFORMED BY: LETICIA [facility] Vlfjci3882 Dobbs RoadDublin [place] [id number] Microscopic observation LM Nom (Urine sed) See below: Normal [facility] Work Phone: Comment on above: Microscopic was kiana cated and was performed. PATIENT WAS FASTINGP ERFORMED BY: LETICIA [facility] Ctlvcl6832 Dob[address] RoadDublin [place] [id number] Microscopic observation LM Nom (Urine sed) MICRON Normal [facility] Work Phone: Comment on above: Microscopic follows if indicated. PATIENT WAS FASTINGP ERFORMED BY: LETICIA [facility] Zlypah5567 [address] RoadDublin [place] [id number] Nitrite Ql (U) Negative Normal Comprehens cl Internal Medicine Work Phone: Comment on above: PATIENT WAS FASTINGP ERFORMED BY: LETICIA [facility] Vtymxe7535 [address] RoadDublin [place] [id number] Nitrite Ql (U) Negative Normal Comprehens cl Internal Medicine; [facility] Work Phone: Comment on above: PATIENT WAS FASTINGP ERFORMED BY: LETICIA [facility] Egsjqs2616 [address] RoadDublin [place] [id number] Nitrite Test strip Ql (U) Negative Normal [facility] Work Phone: pH (U) 7.5 [pH] Normal 5.0-7.5 [facility] Work Phone: Comment on above: PATIENT WAS FASTINGP ERFORMED BY: LETICIA [facility] Ljsrgu5387 Dobbs RoadDublin [place] [id number] pH Test strip (U) 7.5 [pH] Normal 5.0-7.5 Compreh ensive Internal Medicine Work Phone: Protein Ql (U) Trace Normal Comprehens cl Internal Medicine Work Phone: Comment on above: PATIENT WAS FASTINGP ERFORMED BY: HabitRPG LabGrey Orange Roboticsrp Ivwumw4328 [address] RoadDublin [place] [id number] Protein Test strip Ql (U) Trace Normal [facility] Work Phone: Specific gravity Relative Density (U) 1.024 1 Normal 1.005-1.03 0 [facility] Work Phone: Comment on above: PATIENT WAS FASTINGP ERFORMED BY: HabitRPG [facility] Vdkaes9653 [address] RoadDublin [place] [id number] Urobilinogen (U) [Mass/Vol] 0.2 mg/dL Normal 0.0-1.9 [facility]; [facility] Work Phone: Comment on above: PATIENT WAS FASTINGP ERFORMED BY: HabitRPG LabGrey Orange Roboticsrp Iojwrp2167 [address] RoadDublin [place] [id number] Urobilinogen Test strip mass conc (U) 0.2 mg/dL Normal 0.0-1.9 [facility] Work Phone: Comment on above: PATIENT WAS FASTINGP ERFORMED BY: HabitRPG [facility] Dufsue8026 [address] RoadDublin [place] [id number] Vitamin D Hydroxy (50732)Ord ered By: Costing Manager on 03-26-2014 25-Hydroxyvitamin D2+25-Hydroxyvitamin D3 mass conc 28.1 ng/mL Abnormal 30.0-100.0 [facility] Work Phone: Comment on above: Vitamin D deficiency has been defined by the [place] ofMedicine and an Endocrine Society practice guideline as alevel of serum 25-OH vitamin D less than 20 ng/mL (1,2).The Endocrine Society went on to further define vitamin Dinsufficiency as a level between 21 and 29 ng/mL (2).1. IOM ([place] of Medicine). 2010. Dietary reference intakes for calcium and D. [place]: The National Academies Press.2. Claudio MF, [place], Leonid RANDOLPH, et al. Evaluation, treatment, and prevention of vitamin D deficiency: an Endocrine Society clinical practice guideline. JCEM. 2010; 96(7):1911-30. PATIENT WAS FASTINGP ERFORMED BY: HabitRPG LabStayNTouch Zpgtzx9[address] SeemageDublin [place] [id number] T3, FREE (TRIDOTHYRONINE) (8 4485)Ordered By: Costing Manager on 06-21-2012 T3 free mass conc 3.1 pg/mL Normal 2.0-4.4 Compreh ensive Internal Medicine Work Phone: Comment on above: PATIENT NOT FASTINGP ERFORMED BY: HabitRPG LabStayNTouch Ctwclt2919 wmblybl[address] [place] [id number] T4, FREE (THYROXINE) (59945) Ordered By: Costing Manager on 06-21-2012 T4 free mass conc 1.13 ng/dL Normal 0.82-1.77 Compreh ensive Internal Medicine Work Phone: Comment on above: PATIENT NOT FASTINGP ERFORMED BY: Azoi Cltupb77[address] [facility]in [place] [id number] Information: [id number] TSH (00406)Ordered By: Ruba m Pearl Glue Operator on 06-21-2012 Thyrotropin Qn 4.570 {uIU/mL} Abnormal 0.450-4.50 0 [facility] Work Phone: Comment on above: PATIENT NOT FASTINGP ERFORMED BY: HabitRPG LabGrey Orange Roboticsrp Mwcphj3084 [address] [facility]blin [place] [id number] LIPID PANEL (69333)Ordered B y: Costing Manager on 05-17-2012 Cholesterol in HDL mass conc 54 mg/dL Normal [facility] Work Phone: Comment on above: According to ATP-III Guidelines, HDL-C >59 mg/dL is considered anegative risk factor for CHD. PATIENT WAS FASTINGP ERFORMED BY: HabitRPG LabGrey Orange Robotics Kygbot9[address] [facility] [id number] Information: [id number] Cholesterol in LDL mass conc 148 mg/dL Abnormal 0-99 [facility] Work Phone: Comment on above: PATIENT WAS FASTINGP ERFORMED BY: LETICIA LabCo Ubtdsg6966 [facility] [id number] Information: [id number] Cholesterol in LDL/Cholesterol in HDL mass ratio 2.7 {ratio_units} Normal 0.0-3.6 [facility] Work Phone: Comment on above: PATIENT WAS FASTINGP ERFORMED BY: LabCo Cdysnl0274 [facility] [id number] Information: [id number] Cholesterol in VLDL mass conc 14 mg/dL Normal 5-40 [facility] Work Phone: Comment on above: PATIENT WAS FASTINGP ERFORMED BY: [facility]6370 [facility] [id number] Information: [id number] Cholesterol mass conc 216 mg/dL Abnormal 100-199 Com [facility] Internal Medicine Work Phone: Comment on above: PATIENT WAS FASTINGP ERFORMED BY: LabH[facility]6370 [facility] [id number] Information: [id number] Triglyceride mass conc 69 mg/dL Normal 0-149 Co [facility] Internal Medicine Work Phone: Comment on above: PATIENT WAS FASTINGP ERFORMED BY: LabCo Wjlgog1835 [facility] [id number] Information: [id number] TSH (25404)Ordered By: Syste m Pearl Glue Operator on 05-17-2012 Thyrotropin Qn 5.090 {uIU/mL} Abnormal 0.450-4.50 0 [facility] Internal Medicine Work Phone: Comment on above: PATIENT WAS FASTINGP ERFORMED BY: LabCo Jkcttv7837 [facility] [id number] CBC WITH MANUAL DIFF (14940) Ordered By: Costing Manager on 06-02-2011 Basophils (Bld) [#/Vol] 0.0 {x10E3/uL} Normal 0.0-0.2 [facility] Work Phone: Comment on above: PATIENT WAS FASTINGP ERFORMED BY: [address] [id number] Information: [id number] Basophils (Bld) [#/Vol] 0.0 10*3/uL Normal 0.0-0.2 [facility]; [facility] Work Phone: Comment on above: PATIENT WAS FASTINGP ERFORMED BY: [address] [id number] Information: [id number] Basophils Auto #/vol (Bld) 0.0 {x10E3/uL} Normal 0.0-0.2 [facility] Work Phone: Basophils/100 WBC (Bld) 1 % Normal 0-3 [facility] Internal Medicine Work Phone: Comment on above: PATIENT WAS FASTINGP ERFORMED BY: [address] [id number] Information: [id number] Basophils/100 WBC Auto (Bld) 1 % Normal 0-3 [facility] Work Phone: Eosinophils (Bld) [#/Vol] 0.4 {x10E3/uL} Normal 0.0-0.4 [facility] Work Phone: Comment on above: PATIENT WAS FASTINGP ERFORMED BY: [place] [id number] [facility] [id number] Information: [id number] Eosinophils (Bld) [#/Vol] 0.4 10*3/uL Normal 0.0-0.4 [facility]; [facility] Work Phone: Comment on above: PATIENT WAS FASTINGP ERFORMED BY: [place] [id number] [facility] [id number] Information: [id number] Eosinophils Auto #/vol (Bld) 0.4 {x10E3/uL} Normal 0.0-0.4 [facility] Work Phone: Eosinophils/100 WBC (Bld) 6 % Normal 0-7 [facility] Work Phone: Comment on above: PATIENT WAS FASTINGP ERFORMED BY: [place] 8568470 [facility] [id number] Information: [id number] Eosinophils/100 WBC Auto (Bld) 6 % Normal 0-7 [facility] Work Phone: Erythrocyte distribution width (RBC) [Ratio] 14.6 % Normal 11.7-15.0 [facility] Work Phone: Comment on above: PATIENT WAS FASTINGP ERFORMED BY: Accertify[address] [id number] Information: [id number] Erythrocyte distribution width Auto Ratio (RBC) 14.6 % Normal 11.7-15.0 [facility] Work Phone: Hematocrit (Bld) [Volume fraction] 46.0 % Normal 36.0-50.0 [facility] Work Phone: Comment on above: PATIENT WAS FASTINGP ERFORMED BY: [facility] HospitalGrey Orange RoboticsAmanda [place]ille 6135470 [facility] [id number] Information: [id number] Hematocrit Auto Volume Fraction (Bld) 46.0 % Normal 36.0-50.0 [facility] Work Phone: Hemoglobin mass conc (Bld) 15.3 g/dL Normal 12.5-17.0 [facility] Work Phone: Comment on above: PATIENT WAS FASTINGP ERFORMED BY: [address] [id number] Information: [id number] Immature granulocytes #/vol (Bld) 0.0 {x10E3/uL} Normal 0.0-0.1 [facility] Work Phone: Comment on above: PATIENT WAS FASTINGP ERFORMED BY: LETICIA JeromeSaint [facility] Lavsra9017 [facility] [id number] Information: [id number] Immature granulocytes (Bld) [#/Vol] 0.0 10*3/uL Normal 0.0-0.1 [facility]; [facility] Work Phone: Comment on above: PATIENT WAS FASTINGP ERFORMED BY: LETICIA Jerome[address] [id number] Information: [id number] Immature granulocytes/100 WBC (Bld) 0 % Normal 0-2 [facility] Work Phone: Comment on above: PATIENT WAS FASTINGP ERFORMED BY: LETICIA Lidia Bgmciy[address] [id number] Information: [id number] Lymphocytes (Bld) [#/Vol] 2.0 {x10E3/uL} Normal 0.7-4.5 [facility] Work Phone: Comment on above: PATIENT WAS FASTINGP ERFORMED BY: LETICIA [facility] Xhyolr4872 [facility] [id number] Information: [id number] Lymphocytes (Bld) [#/Vol] 2.0 10*3/uL Normal 0.7-4.5 [facility]; [facility] Work Phone: Comment on above: PATIENT WAS FASTINGP ERFORMED BY: LETICIA [place] [id number] [facility] [id number] Information: [id number] Lymphocytes Auto #/vol (Bld) 2.0 {x10E3/uL} Normal 0.7-4.5 [facility] Work Phone: Lymphocytes/100 WBC (Bld) 32 % Normal 14-46 [facility] Work Phone: Comment on above: PATIENT WAS FASTINGP ERFORMED BY: LETICIA [place] [id number] [facility] [id number] Information: [id number] Lymphocytes/100 WBC Auto (Bld) 32 % Normal 14-46 [facility] Work Phone: MCH (RBC) [Entitic mass] 28.3 pg Normal 27.0-34.0 [facility] Work Phone: Comment on above: PATIENT WAS FASTINGP ERFORMED BY: [address] [id number] Information: [id number] MCH Auto Entitic mass (RBC) 28.3 pg Normal 27.0-34.0 [facility] Internal Medicine Work Phone: MCHC (RBC) [Mass/Vol] 33.3 g/dL Normal 32.0-36.0 [facility] Internal Medicine Work Phone: Comment on above: PATIENT WAS FASTINGP ERFORMED BY: [address] [id number] Information: [id number] MCHC Auto mass conc (RBC) 33.3 g/dL Normal 32.0-36.0 [facility] Internal Medicine Work Phone: MCV (RBC) [Entitic vol] 85 fL Normal 80-98 [facility] Internal Medicine Work Phone: Comment on above: PATIENT WAS FASTINGP ERFORMED BY: [address] [id number] Information: [id number] MCV Auto Entitic volume (RBC) 85 fL Normal 80-98 [facility] Internal Medicine Work Phone: Monocytes (Bld) [#/Vol] 0.8 {x10E3/uL} Normal 0.1-1.0 [facility] Internal Medicine Work Phone: Comment on above: PATIENT WAS FASTINGP ERFORMED BY: [address] [id number] Information: [id number] Monocytes (Bld) [#/Vol] 0.8 10*3/uL Normal 0.1-1.0 [facility]; [facility] Work Phone: Comment on above: PATIENT WAS FASTINGP ERFORMED BY: LETICIA [facility] Hospitalsandra CastilloKkzngp3809 [facility] [id number] Information: [id number] Monocytes Auto #/vol (Bld) 0.8 {x10E3/uL} Normal 0.1-1.0 [facility] Work Phone: Monocytes/100 WBC (Bld) 13 % Normal 4-13 C omprehensive Internal Medicine Work Phone: Comment on above: PATIENT WAS FASTINGP ERFORMED BY: LETICIA [facility]6370 [facility] [id number] Information: [id number] Monocytes/100 WBC Auto (Bld) 13 % Normal 4-13 [facility] Work Phone: Neutrophils (Bld) [#/Vol] 3.1 {x10E3/uL} Normal 1.8-7.8 [facility] Work Phone: Comment on above: PATIENT WAS FASTINGP ERFORMED BY: LETICIA [facility]oS[facility] Plojuz3836 [facility] [id number] Information: [id number],[id number] Neutrophils (Bld) [#/Vol] 3.1 10*3/uL Normal 1.8-7.8 [facility]; [facility] Work Phone: Comment on above: PATIENT WAS FASTINGP ERFORMED BY: LETICIA [facility] Galqlk7705 [facility] [id number] Information: [id number] Neutrophils Auto #/vol (Bld) 3.1 {x10E3/uL} Normal 1.8-7.8 [facility] Work Phone: Neutrophils/100 WBC (Bld) 48 % Normal 40-74 [facility] Work Phone: Comment on above: PATIENT WAS FASTINGP ERFORMED BY: LETICIA [place] 6436870 [facility] [id number] Information: [id number] Neutrophils/100 WBC Auto (Bld) 48 % Normal 40-74 [facility] Work Phone: Platelets (Bld) [#/Vol] 180 {x10E3/uL} Normal 140-415 [facility] Work Phone: Comment on above: PATIENT WAS FASTINGP ERFORMED BY: LETICIA [facility]6370 [facility] [id number] Information: [id number] Platelets (Bld) [#/Vol] 180 10*3/uL Normal 140-415 [facility] Internal Medicine; [facility] Work Phone: Comment on above: PATIENT WAS FASTINGP ERFORMED BY: LETICIA [facility] Ievouy2780 [facility] [id number] Information: [id number] Platelets Auto #/vol (Bld) 180 {x10E3/uL} Normal 140-415 [facility] Work Phone: RBC (Bld) [#/Vol] 5.41 {x10E6/uL} Normal 4.10-5.60 [facility] Internal Medicine Work Phone: Comment on above: PATIENT WAS FASTINGP ERFORMED BY: LETICIA Castillolin6370 [facility] [id number] Information: [id number] RBC (Bld) [#/Vol] 5.41 10*6/uL Normal 4.10-5.60 [facility] Internal Medicine; [facility] Work Phone: Comment on above: PATIENT WAS FASTINGP ERFORMED BY: LETICIA [facility]6370 [facility] [id number] Information: [id number] RBC Auto #/vol (Bld) 5.41 {x10E6/uL} Normal 4.10-5.60 [facility] Work Phone: WBC (Bld) [#/Vol] 6.3 {x10E3/uL} Normal 4.0-10.5 Com prehensive Internal Medicine Work Phone: Comment on above: PATIENT WAS FASTINGP ERFORMED BY: LETICIA Lidiasandra Mhwmnf1466 [facility] [id number] Information: [id number] WBC (Bld) [#/Vol] 6.3 10*3/uL Normal 4.0-10.5 [facility] Internal Medicine; [facility] Work Phone: Comment on above: PATIENT WAS FASTINGP ERFORMED BY: LETICIA Bertrand Dougherty6370 [facility] [id number] Information: [id number] WBC Auto #/vol (Bld) 6.3 {x10E3/uL} Normal 4.0-10.5 [facility] Work Phone: LIPID PANEL (14036)Ordered B y: Costing Manager on 06-02-2011 Cholesterol in HDL mass conc 59 mg/dL Normal [facility] Work Phone: Comment on above: According to ATP-III Guidelines, HDL-C >59 mg/dL is considered anegative risk factor for CHD. PATIENT WAS FASTINGP ERFORMED BY: LETICIA JeromeMj CastilloVtlwvp7376 [facility] [id number] Cholesterol in LDL mass conc 153 mg/dL Abnormal 0-99 [facility] Work Phone: Comment on above: PATIENT WAS FASTINGP ERFORMED BY: LETICIA LabMj CastilloGheqxu3973 [facility] [id number] Cholesterol in LDL/Cholesterol in HDL mass ratio 2.6 {ratio_units} Normal 0.0-3.6 [facility] Work Phone: Comment on above: PATIENT WAS FASTINGP ERFORMED BY: LETICIA LabCosandra Eqjfrb4784 [facility] [id number] Cholesterol in VLDL mass conc 13 mg/dL Normal 5-40 [facility] Work Phone: Comment on above: PATIENT WAS FASTINGP ERFORMED BY: LETICIA LabMj Cycpab5530 [facility] [id number] Cholesterol mass conc 225 mg/dL Abnormal 100-199 Com prehensive Internal Medicine Work Phone: Comment on above: PATIENT WAS FASTINGP ERFORMED BY: CB [facility] Lakred0268 Dobbs RoadDublin [place] [id number] Triglyceride mass conc 64 mg/dL Normal 0-149 Co [facility]ensive Internal Medicine Work Phone: Comment on above: PATIENT WAS FASTINGP ERFORMED BY: CB [facility] Jojvlp0357 Dobbs RoadDublin [place] [id number] METABOLIC PANEL, COMPREHENSI VE (42758)Ordered By: Costing Manager on 06-02-2011 Albumin mass conc 4.2 g/dL Normal 3.6-4.8 [facility] Internal Medicine Work Phone: Comment on above: PATIENT WAS FASTINGP ERFORMED BY: LETICIA [facility] Knekpu6625 Dobbs RoadDublin [place] [id number] Albumin/Globulin mass ratio 1.7 {ratio} Normal 1.1-2.5 [facility] Internal Medicine Work Phone: Comment on above: PATIENT WAS FASTINGP ERFORMED BY: CB [facility] Jirqsp4876 Dobbs Roadblin [place] [id number] ALP [Catalytic activity/Vol] 70 U/L Normal 25-160 [facility] Internal Medicine; [facility] Internal Medicine Work Phone: Comment on above: PATIENT WAS FASTINGP ERFORMED BY: CB [facility] Msaiip3687 [address] RoadDublin [place] [id number] ALP enzyme act/vol 70 [iU]/L Normal 25-160 [facility] Internal Medicine Work Phone: Comment on above: PATIENT WAS FASTINGP ERFORMED BY: CB [facility] Thwlkr4676 [address] RoadDublin [place] [id number] ALT [Catalytic activity/Vol] 19 U/L Normal 0-55 [facility] Internal Medicine; [facility] Internal Medicine Work Phone: Comment on above: PATIENT WAS FASTINGP ERFORMED BY: CB [facility] Wohffl5886 [address] RoadDublin [place] [id number] ALT enzyme act/vol 19 [iU]/L Normal 0-55 [facility] Internal Medicine Work Phone: Comment on above: PATIENT WAS FASTINGP ERFORMED BY: LETICIA [facility] Xunmhz6279 [address] RoadDublin [place] [id number] AST [Catalytic activity/Vol] 20 U/L Normal 0-40 [facility]; [facility] Work Phone: Comment on above: PATIENT WAS FASTINGP ERFORMED BY: CB [facility] Ziewmq7472 [address] RoadDublin [place] [id number] AST enzyme act/vol 20 [iU]/L Normal 0-40 Compre [facility] Internal Medicine Work Phone: Comment on above: PATIENT WAS FASTINGP ERFORMED BY: LETICIA [facility] Ydepxn2290 Dob[address] RoadDublin [place] [id number] Bilirubin mass conc 0.5 mg/dL Normal 0.0-1.2 Compr ensive Internal Medicine Work Phone: Comment on above: PATIENT WAS FASTINGP ERFORMED BY: LETICIA [facility] Egnuln0099 [address] RoadDublin [place] [id number] Calcium mass conc 9.6 mg/dL Normal 8.6-10.2 Compreh ensive Internal Medicine Work Phone: Comment on above: PATIENT WAS FASTINGP ERFORMED BY: LETICIA [facility] Jaccna7602 [address] RoadDublin [place] [id number] Chloride molar conc 101 mmol/L Normal 97-108 Compr ensive Internal Medicine Work Phone: Comment on above: PATIENT WAS FASTINGP ERFORMED BY: LETICIA [facility] Cqkoph2528 [address] RoadDublin [place] [id number] CO2 molar conc 24 mmol/L Normal 20-32 Comprehens cl Internal Medicine Work Phone: Comment on above: PATIENT WAS FASTINGP ERFORMED BY: CB [facility] Gjhyng1876 [address] RoadDublin [place] [id number] Creatinine mass conc 1.20 mg/dL Normal 0.76-1.27 Comp rehensive Internal Medicine Work Phone: Comment on above: PATIENT WAS FASTINGP ERFORMED BY: LETICIA [facility] Tqjuyi7511 [address] RoadDublin [place] [id number] GFR/1.73 sq M predicted among blacks MDRD vol rate/area (S/P/Bld) 73 mL/min/{1.73_m2} Normal Comprehe nsive Internal Medicine Work Phone: Comment on above: Note: A persistent e GFR <60 mL/min/1.73 m2 (3 months or more) mayindicate chronic kidney disease. An eGFR >59 mL/min/1.73 m2 with anelevated urine protein also may indicate chronic kidney disease.Calculated using CKD-EPI formula. PATIENT WAS FASTINGP ERFORMED BY: CB [facility] Vfkaah2124 [address] RoadDublin [place] [id number] GFR/1.73 sq M predicted among non-blacks CKD-EPI vol rate/area (S/P/Bld) 64 mL/min/1.73 Normal [facility] Work Phone: Comment on above: PATIENT WAS FASTINGP ERFORMED BY: CB [facility] Likbug2601 [address]bs RoadDublin [place] [id number] Globulin (S) [Mass/Vol] 2.5 g/dL Normal 1.5-4.5 C omprehensive Internal Medicine Work Phone: Comment on above: PATIENT WAS FASTINGP ERFORMED BY: CB [facility] Bmwepq87[address] SeemageDublin [place] [id number] Globulin Calculated mass conc (S) 2.5 g/dL Normal 1.5-4.5 [facility] Work Phone: Glucose mass conc 88 mg/dL Normal 65-99 Compreh ensive Internal Medicine Work Phone: Comment on above: PATIENT WAS FASTINGP ERFORMED BY: CB [facility] Tulgrj76[address] [facility] HospitalDublin [place] [id number] Potassium molar conc 4.3 mmol/L Normal 3.5-5.2 Comp rehensive Internal Medicine Work Phone: Comment on above: PATIENT WAS FASTINGP ERFORMED BY: CB [facility] Vkpnms8368 [address] [facility] HospitalDublin [place] [id number] Protein mass conc 6.7 g/dL Normal 6.0-8.5 Compreh ensive Internal Medicine Work Phone: Comment on above: PATIENT WAS FASTINGP ERFORMED BY: LETICIA LabCosandra Lpzino3522 [address] [facility] Hospitalbl[facility] [place] [id number] Sodium molar conc 138 mmol/L Normal 134-144 Compreh ensive Internal Medicine Work Phone: Comment on above: PATIENT WAS FASTINGP ERFORMED BY: LETICIA LabMj CastilloIdsifg1589 [address] [facility]in [place] [id number] Urea nitrogen mass conc 28 mg/dL Abnormal 8-27 C omprehensive Internal Medicine Work Phone: Comment on above: PATIENT WAS FASTINGP ERFORMED BY: LETICIA LabCosandra CastilloWzcbua7[address] [facility] [id number] Urea nitrogen/Creatinine mass ratio 23 mg/mg Abnormal 10- [facility] Work Phone: Comment on above: PATIENT WAS FASTINGP ERFORMED BY: LETICIA LabTomás Ajaobi0428 Lake [facility] [id number] MICROALBUMINOrdered By: Syst em Pearl Glue Operator on 06-02-2011 Albumin DL <= 20 mg/L mass conc (U) 3.9 ug/mL Normal 0.0-17.0 [facility] Work Phone: Comment on above: PATIENT WAS FASTINGP ERFORMED BY: LETICIA LabTomás [id number] [facility] [id number] Albumin/Creatinine mass ratio (U) 4.4 {mg/g_creat} Normal 0.0-30.0 [facility] Work Phone: Comment on above: PATIENT WAS FASTINGP ERFORMED BY: LETICIA LabCo [id number] [facility] [id number] Creatinine mass conc (U) 88.2 mg/dL Normal 22.0-328.0 [facility] Work Phone: Comment on above: PATIENT WAS FASTINGP ERFORMED BY: LETICIA LabCo Lbjnee7663 [facility] [id number] Microscopic ExaminationOrder ed By: Costing Manager on 06-02-2011 Bacteria LM.HPF #/area (Urine sed) None seen Normal [facility] Work Phone: Comment on above: PATIENT WAS FASTINGP ERFORMED BY: LETICIA [facility] Nhuoie45[address] RoadDublin [place] [id number] Epithelial cells LM.HPF #/area (Urine sed) None seen Normal 0 - 10 [facility] Work Phone: Comment on above: PATIENT WAS FASTINGP ERFORMED BY: LETICIA [facility] Qhahjn8260 [address] RoadDublin [place] [id number] Mucus LM Ql (Urine sed) Present Normal C omprehensive Internal Medicine Work Phone: Mucus Ql (Urine sed) Present Normal Comp rehensive [facility] Medicine Work Phone: Comment on above: PATIENT WAS FASTINGP ERFORMED BY: LETICIA [facility] Vxaffc1695 [address] RoadDublin [place] [id number] RBC LM.HPF #/area (Urine sed) 0-3 Normal 0 - 3 [facility] Work Phone: Comment on above: PATIENT WAS FASTINGP ERFORMED BY: LETICIA [facility] Ecaoqi4576 [address] RoadDublin [place] [id number] WBC LM.HPF #/area (Urine sed) None seen Normal 0 - 5 [facility] Work Phone: Comment on above: PATIENT WAS FASTINGP ERFORMED BY: LETICIA [facility] Dmjpow2178 [address] RoadDublin [place] [id number] TSH ([id number])Ordered By: Syste m Pearl Glue Operator on 06-02-2011 Thyrotropin Qn 4.540 {uIU/mL} Abnormal 0.450-4.50 0 [facility] Work Phone: Comment on above: PATIENT WAS FASTINGP ERFORMED BY: LETICIA [facility] Jzyrgw8813 [address] RoadDublin [place] [id number]; appt 06-10-11 URINALYSIS, W/ MICRO ([id number]) Ordered By: Costing Manager on 06-02-2011 Appearance Nom (U) Clear Normal Compre hensive [facility] Work Phone: Comment on above: PATIENT WAS FASTINGP ERFORMED BY: CB [facility] Tcmhsz[address] [facility] [id number] Bilirubin Ql (U) Negative Normal Comprehe nsive [facility] Medicine Work Phone: Comment on above: PATIENT WAS FASTINGP ERFORMED BY: LETICIA Castillolin[address] [facility] [id number] Bilirubin Ql (U) Negative Normal Comprehe nsive [facility] Medicine; [facility] Work Phone: Comment on above: PATIENT WAS FASTINGP ERFORMED BY: LETICIA Dougherty[address] [facility] [id number] Color Nom (U) Yellow Normal Comprehensi ve Internal Medicine Work Phone: Comment on above: PATIENT WAS FASTINGP ERFORMED BY: LETICIA Dougherty6370 [facility] [id number] Glucose Ql (U) Negative Normal Comprehens cl [facility] Work Phone: Comment on above: PATIENT WAS FASTINGP ERFORMED BY: LETICIA Dougherty[address] [facility] [id number] Glucose Ql (U) Negative Normal Comprehens cl [facility]; [facility] Work Phone: Comment on above: PATIENT WAS FASTINGP ERFORMED BY: LETICIA Dougherty[address] [facility] [id number] Hemoglobin Ql (U) Negative Normal Compreh ensive [facility] Work Phone: Comment on above: PATIENT WAS FASTINGP ERFORMED BY: LETICIA Dougherty[address] [facility] [id number] Hemoglobin Ql (U) Negative Normal Compreh ensive [facility]; [facility] Work Phone: Comment on above: PATIENT WAS FASTINGP ERFORMED BY: LETICIA Castillolin[address] [facility] [id number] Hemoglobin Test strip Ql (U) Negative Normal [facility] Work Phone: Ketones Ql (U) Negative Normal Comprehens cl [facility] Work Phone: Comment on above: PATIENT WAS FASTINGP ERFORMED BY: CB [facility]Dublin [place] [id number] Ketones Ql (U) Negative Normal Comprehens cl [facility]; [facility] Work Phone: Comment on above: PATIENT WAS FASTINGP ERFORMED BY: LETICIA LabSaint [facility] Lsvdhe4101 [address] RoadDublin [place] [id number] Leukocyte esterase Test strip Ql (U) Negative Normal [facility] Work Phone: Comment on above: PATIENT WAS FASTINGP ERFORMED BY: [facility]Dublin [place] [id number] Leukocyte esterase Test strip Ql (U) Negative Normal [facility]; [facility] Work Phone: Comment on above: PATIENT WAS FASTINGP ERFORMED BY: LETICIA [facility] Cgdqex5672 [address] RoadDublin [place] [id number] Microscopic observation LM Nom (Urine sed) MICRON Normal [facility] Work Phone: Comment on above: Microscopic follows if indicated. PATIENT WAS FASTINGP ERFORMED BY: LETICIA [facility] Nlzhqu9776 [address] RoadDublin [place] [id number] Microscopic observation LM Nom (Urine sed) See below: Normal [facility] Work Phone: Comment on above: PATIENT WAS FASTINGP ERFORMED BY: LETICIA [facility] Zwpooc5[address] RoadDublin [place] [id number] Nitrite Ql (U) Negative Normal Comprehens cl [facility] Work Phone: Comment on above: PATIENT WAS FASTINGP ERFORMED BY: LabH[facility]6[address]Dublin [place] [id number] Nitrite Ql (U) Negative Normal Comprehens cl [facility]; [facility] Work Phone: Comment on above: PATIENT WAS FASTINGP ERFORMED BY: LabH[facility]6[address]Dublin [place] [id number] Nitrite Test strip Ql (U) Negative Normal [facility] Work Phone: pH (U) 7.0 [pH] Normal 5.0-7.5 [facility] Work Phone: Comment on above: PATIENT WAS FASTINGP ERFORMED BY: LETICIA [facility] Peclfh[address] [facility]in [place] [id number] pH Test strip (U) 7.0 [pH] Normal 5.0-7.5 Compreh ensive [facility] Medicine Work Phone: Protein Ql (U) Negative Normal Comprehens cl [facility] Work Phone: Comment on above: PATIENT WAS FASTINGP ERFORMED BY: LETICIA [facility] Kkxyam4302 Dob[address] RoadEcu Health Dupl[facility] Hospitalin [place] [id number] Protein Ql (U) Negative Normal Comprehens cl [facility]; [facility] Work Phone: Comment on above: PATIENT WAS FASTINGP ERFORMED BY: LETICIA [facility] Zzccht7383 [address] RoadWilson [facility] [id number] Protein Test strip Ql (U) Negative Normal [facility] Work Phone: Specific gravity Relative Density (U) 1.015 1 Normal 1.005-1.03 0 [facility] Work Phone: Comment on above: PATIENT WAS FASTINGP ERFORMED BY: LETICIA [facility] Dcrrhh[address] [facility] [id number] Urobilinogen (U) [Mass/Vol] 0.2 mg/dL Normal 0.0-1.9 [facility]; [facility] Work Phone: Comment on above: PATIENT WAS FASTINGP ERFORMED BY: [facility] Erolqy1807 Dob[address] RoadWilson Medical Center [id number] Urobilinogen Test strip mass conc (U) 0.2 mg/dL Normal 0.0-1.9 [facility] Work Phone: Comment on above: PATIENT WAS FASTINGP ERFORMED BY: LETICIA [facility] Dzpvpo[address] [facility]in [place] [id number] SINUS/FACIAL BONEOrdered By: Costing Manager on 01-31-2010 SINUS/FACIAL BONE See Note Normal Compreh ensive [facility] Medicine Work Phone: Comment on above: CLINICAL:Nasal conge stion since July 2009. CT MAXILLOFACIAL SINUSES TECHNIQUE:The patient was scanned in a multi detector CT scanner. High resolutionaxial imaging was performed without the administration of intravenouscontrast material. Sagittal and coronal images were reconstructed. COMPARISON:None. FINDINGS:FRONTAL SINUSES:There is near complete opacification of the left frontal sinuses andwithrelative sparing on the right, however question is raised of an air-fluidlevel in the right frontal sinus. Frontal sinuses are normally formed.The frontoethmoidal sinuses are completely occluded. ETHMOIDAL SINUSES:There is complete opacification of the anterior and posterior ethmoidaircells diffusely. Ethmoid sinuses are normally formed. The ethmoidsinussepta are diffusely thinned but intact. Medial orbital cid areintact. MAXILLARY SINUSES:The maxillary sinuses are normally formed, or there is bilateralcircumferential left greater than right mucosal thickening predominantlygreater than 5 mm. There is some bubbly soft tissue density in therightmaxillary sinus. No mary air-fluid levels are seen. The maxillarysinusostia are completely occluded. The medial maxillary sinus cid aremarkedly thinned with possible cortical break. SPHENOIDAL SINUSES:The right sphenoid sinus is dominant, a small left sphenoid sinus iscompletely opacified. Sphenoethmoidal sinuses are occluded. There iscircumferential mucosal thickening with some bubbly-type soft tissuedensity within the main sphenoid sinus on the right, no air-fluid levelsare present. OMU:The bilateral maxillary infundibula and hiatus semilunaris arecompletelyoccluded.. MIDDLE TURBINATES:The left middle turbinate is completely nonvisualized secondary toextensive mucosal thickening. The right inferior turbinate isunremarkable. INFERIOR TURBINATES:The bilateral inferior nasal turbinates are unremarkable save for mildmucosal thickening. NASAL SEPTUM:The nasal septum is deviated to the left slightly with a left sided andthere is a leftward pointing triangular shaped 4 x 6 mm nasal septalspur. NASAL CAVITY:The nasal cavity demonstrates complete occlusion posteriorly,bilaterallyby soft tissue density with some scattered air bubbles. Anteriorly thenasal cavity is patent. There is no demonstrated adenoidal pad hypertrophy. The visualized osseous structures are normal. The visualized bilateralorbital contents are normal. IMPRESSION:1. Diffuse, severe bilateral paranasal sinus and nasal cavity mucosalthickening as discussed above with possible acute sinusitis involvingtheright frontal and right maxillary sinuses and bony eburnation. 2. Mildly deviated nasal septum to the left with a small septal bonyspur. Dictated on 01/31/10801 by KRZYSZTOF MARINTranscribed on 01/31/10801 by INTERFACE,MCKESSONSign by KRZYSZTOF MARIN on 01/31/10 1040 Sign by: KRZYSZTOF MARIN CHEST, PA AND LATERAL (MT)Or dered By: Costing Manager on 01-16-2010 CHEST, PA AND LATERAL (MT) See Note Normal [facility] Work Phone: Comment on above: Exam Number: [id number] LINICAL:Male, 64 years old. The patient presents with abnormal breath sounds. X-RAY EXAMINATION - CHEST TECHNIQUE:PA and lateral views of the chest. COMPARISON:None. FINDINGS: There is elevation of the right hemidiaphragm. There is no demonstrated pulmonary parenchymal abnormality. There is evidence of calcified old granulomatous disease. There is no demonstrated pleural abnormality. The heart is normal in size and morphology. Normal mediastinum and hilum. Normal visualized pulmonary arteries. Normal visualized aortic arch and descending thoracic aorta. There is a dextroscoliosis of the thoracic spine. IMPRESSION:Calcified old granulomatous disease. Reported By: MARK AGUILA Respiratory pathogens DNA an d RNA 12b panel MARIEL+probe (Unsp spec) Respiratory Panel (PCR) Rhinovirus W [facility] Work Phone: Vital Signs Date Time Vital Sign Value Performing Clinician Facility 09-05-2024 23:08-0400 Body temperature 98.3 [degF] Dr. Marci Rose DO Work Phone: [facility] 09-05-2024 23:08-0400 Diastolic blood pressure 74 mm[Hg] Dr. Marci Rose DO Work Phone: [facility] 09-05-2024 23:08-0400 Heart rate 74 /min Dr. Marci Rose DO Work Phone: [facility] 09-05-2024 23:08-0400 Respiratory rate 20 /min Dr. Marci Rose DO Work Phone: [facility] 09-05-2024 23:08-0400 SaO2% (BldA) [Mass fraction] 100 % Dr. Marci Rose DO Work Phone: [facility] 09-05-2024 23:08-0400 Systolic blood pressure 142 mm[Hg] Dr. Marci Rose DO Work Phone: [facility] 09-05-2024 18:17-0400 Body height 180.[address] Marci Rose DO Work Phone: [facility] 09-05-2024 18:17-0400 Body mass index (BMI) [Ratio] 25.7 kg/m2 Dr. Marci Rose DO Work Phone: [facility] 09-05-2024 18:17-0400 Body weight 83.[address] Marci Rose DO Work Phone: [facility] 05-17-2024 10:24-0400 Body height 180.[address] Marci Rose DO Work Phone: [facility] 05-06-2024 13:01-0500 Body temperature 98.6 [degF] Dr. Marci Rose DO Work Phone: [facility] 05-06-2024 13:01-0500 Diastolic blood pressure 86 mm[Hg] Dr. Marci Rose DO Work Phone: [facility] 05-06-2024 13:01-0500 Heart rate 66 /min Dr. Marci Rose DO Work Phone: [facility] 05-06-2024 13:01-0500 Respiratory rate 18 /min Dr. Marci Rose DO Work Phone: [facility] 05-06-2024 13:01-0500 SaO2% (BldA) [Mass fraction] 98 % Dr. Marci Rose DO Work Phone: [facility] 05-06-2024 13:01-0500 Systolic blood pressure 126 mm[Hg] Dr. Marci Rose DO Work Phone: [facility] 2024 17:57-0500 Body mass index (BMI) [Ratio] 23.8 kg/m2 Dr. Marci Rose DO Work Phone: [facility] 2024 17:57-0500 Body weight 77.[address] Marci Rose DO Work Phone: [facility] 02-16-2024 20:23-0500 Body temperature 98.1 [degF] Dr. Marci Rose DO Work Phone: [facility] 02-16-2024 20:23-0500 Diastolic blood pressure 98 mm[Hg] Dr. Marci Rose DO Work Phone: [facility] 02-16-2024 20:23-0500 Heart rate 77 /min Dr. Marci Rose DO Work Phone: [facility] 02-16-2024 20:23-0500 Respiratory rate 18 /min Dr. Marci Rose DO Work Phone: [facility] 02-16-2024 20:23-0500 SaO2% (BldA) [Mass fraction] 95 % Dr. Marci Rose DO Work Phone: [facility] 02-16-2024 20:23-0500 Systolic blood pressure 160 mm[Hg] Dr. Marci Rose DO Work Phone: [facility] 02-16-2024 17:02-0500 Body mass index (BMI) [Ratio] 24.6 kg/m2 Dr. Marci Rose DO Work Phone: [facility] 02-16-2024 17:02-0500 Body weight 82.[address] Marci Rose DO Work Phone: [facility] 11-12-2022 10:09-0400 Body height 182.88 cm MAITE Parks XAVIER [facility]; [facility] Work Phone: 11-12-2022 10:090400 Body mass index (BMI) [Ratio] 24.82 kg/m2 MAITE Parks XAVIER [facility]; [facility] Work Phone: 11-12-2022 10:09040 Body surface area Derived from formula 2.05 m2 MAITEGONZALO Parks LPN [facility]; [facility] Work Phone: 11-12-2022 10:09040 Body temperature 97.6 [degF] MAITE Charly XAVIER [facility]; [facility] Work Phone: 11-12-2022 10:09040 Body weight 83.01 kg MAITE Parks XAVIER [facility]; [facility] Work Phone: 11-12-2022 10:09040 Diastolic blood pressure 76 mm[Hg] MAITE Parks LPN [facility]; [facility] Work Phone: 11-12-2022 10:090400 Heart rate 64 /min MAITEGONZALO Parks LPN [facility]; [facility] Work Phone: 11-12-2022 10:09-0400 Respiratory rate 18 /min MAITE Parks XAVIER [facility]; [facility] Work Phone: 11-12-2022 10:090400 SaO2% (BldA) [Mass fraction] 94 % MAITE Parks LPN [facility]; [facility] Work Phone: 11-12-2022 10:09-0400 Systolic blood pressure 122 mm[Hg] MAITE Parks LPN [facility]; [facility] Work Phone: 09-10-2022 10:18-0400 Body height 182.88 cm [facility]; [facility] Work Phone: 09-10-2022 10:18-0400 Body mass index (BMI) [Ratio] 24.6 kg/m2 [facility]; [facility] Work Phone: 09-10-2022 10:18-0400 Body surface area Derived from formula 2.04 m2 [facility]; [facility] Work Phone: 09-10-2022 10:18-0400 Body temperature 96.9 [degF] [facility]; [facility] Work Phone: 09-10-2022 10:18-0400 Body weight 82.27 kg [facility]; [facility] Work Phone: 09-10-2022 10:18-0400 Diastolic blood pressure 80 mm[Hg] [facility]; [facility] Work Phone: 09-10-2022 10:18-0400 Heart rate 62 /min [facility]; [facility] Work Phone: 09-10-2022 10:18-0400 Respiratory rate 16 /min [facility]; [facility] Work Phone: 09-10-2022 10:18-0400 SaO2% (BldA) [Mass fraction] 97 % [facility]; [facility] Work Phone: 09-10-2022 10:18-0400 Systolic blood pressure 140 mm[Hg] [facility]; [facility] Work Phone: 05-11-2022 09:28-0500 Body height 182.88 cm [facility]; [facility] Work Phone: 05-11-2022 09:28-0500 Body mass index (BMI) [Ratio] 24.6 kg/m2 [facility]; [facility] Work Phone: 05-11-2022 09:28-0500 Body surface area Derived from formula 2.04 m2 [facility]; [facility] Work Phone: 05-11-2022 09:28-0500 Body temperature 96.9 [degF] [facility]; [facility] Work Phone: 05-11-2022 09:28-0500 Body weight 82.27 kg [facility]; [facility] Work Phone: 05-11-2022 09:28-0500 Diastolic blood pressure 74 mm[Hg] [facility]; [facility] Work Phone: 05-11-2022 09:28-0500 Heart rate 61 /min [facility]; [facility] Work Phone: 05-11-2022 09:28-0500 Respiratory rate 16 /min [facility]; [facility] Work Phone: 05-11-2022 09:28-0500 SaO2% (BldA) [Mass fraction] 98 % [facility]; [facility] Work Phone: 05-11-2022 09:28-0500 Systolic blood pressure 126 mm[Hg] [facility]; [facility] Work Phone: 04-20-2022 10:04-0500 Body height 182.88 cm [facility]; [facility] Work Phone: 04-20-2022 10:04-0500 Body mass index (BMI) [Ratio] 24.73 kg/m2 [facility]; [facility] Work Phone: 04-20-2022 10:04-0500 Body surface area Derived from formula 2.05 m2 [facility]; [facility] Work Phone: 04-20-2022 10:04-0500 Body temperature 96.9 [degF] [facility]; [facility] Work Phone: 04-20-2022 10:04-0500 Body weight 82.73 kg [facility]; [facility] Work Phone: 04-20-2022 10:04-0500 Diastolic blood pressure 82 mm[Hg] [facility]; [facility] Work Phone: 04-20-2022 10:04-0500 Heart rate 65 /min [facility]; [facility] Work Phone: 04-20-2022 10:04-0500 Respiratory rate 16 /min [facility]; [facility] Work Phone: 04-20-2022 10:04-0500 SaO2% (BldA) [Mass fraction] 97 % [facility]; [facility] Work Phone: 04-20-2022 10:04-0500 Systolic blood pressure 122 mm[Hg] [facility]; [facility] Work Phone: 03-12-2022 15:40-0500 Body temperature 98.1 [degF] Dr. Marci Rose Work Phone: [facility] Work Phone: 03-12-2022 15:40-0500 Diastolic blood pressure 70 mm[Hg] Dr. Marci Rose Work Phone: [facility] Work Phone: 03-12-2022 15:40-0500 Heart rate 65 /min Dr. Marci Rose Work Phone: [facility] Work Phone: 03-12-2022 15:40-0500 Respiratory rate 16 /min Dr. Marci Rose Work Phone: [facility] Work Phone: 03-12-2022 15:40-0500 SaO2% (BldA) [Mass fraction] 93 % Dr. Marci Rose Work Phone: [facility] Work Phone: 03-12-2022 15:40-0500 Systolic blood pressure 122 mm[Hg] Dr. Marci Rose Work Phone: [facility] Work Phone: 03-11-2022 21:13-0500 Inhaled oxygen flow rate 2 L/min Dr. Marci Rose Work Phone: [facility] Work Phone: 03-11-2022 00:08-0500 Body height 182.[address] Marci Rose Work Phone: [facility] Work Phone: 03-11-2022 00:08-0500 Body mass index (BMI) [Ratio] 24 kg/m2 Dr. Marci Rose Work Phone: [facility] Work Phone: 03-11-2022 00:08-0500 Body weight 80.[address] Marci Rose Work Phone: [facility] Work Phone: 03-10-2022 23:11-0500 Body temperature 98.4 [degF] [facility] Work Phone: 03-10-2022 23:11-0500 Diastolic blood pressure 85 mm[Hg] [facility] Work Phone: 03-10-2022 23:11-0500 Heart rate 134 /min [facility] Work Phone: 03-10-2022 23:11-0500 Inhaled oxygen flow rate 3 L/min [facility] Work Phone: 03-10-2022 23:11-0500 Respiratory rate 20 /min [facility] Work Phone: 03-10-2022 23:11-0500 SaO2% (BldA) [Mass fraction] 91 % [facility] Work Phone: 03-10-2022 23:11-0500 Systolic blood pressure 147 mm[Hg] [facility] Work Phone: 03-10-2022 20:50-0500 Body height 182.88 cm [facility] Work Phone: 03-10-2022 20:50-0500 Body mass index (BMI) [Ratio] 23 kg/m2 [facility] Work Phone: 03-10-2022 20:50-0500 Body weight 77.11 kg [facility] Work Phone: 10-27-2021 10:55-0400 Body height 182.88 cm Marci Rose DO Work Phone: [facility]; [facility] Work Phone: 10-27-2021 10:55-0400 Body mass index (BMI) [Ratio] 24.56 kg/m2 Marci Rose DO Work Phone: [facility]; [facility] Work Phone: 10-27-2021 10:55-0400 Body surface area Derived from formula 2.04 m2 Marci Rose DO Work Phone: [facility]; [facility] Work Phone: 10-27-2021 10:55-0400 Body temperature 96.9 [degF] Marci Rose DO Work Phone: [facility]; [facility] Work Phone: 10-27-2021 10:55-0400 Body weight 82.16 kg Marci Rose DO Work Phone: [facility]; [facility] Work Phone: 10-27-2021 10:55-0400 Diastolic blood pressure 80 mm[Hg] Marci Riojason DO Work Phone: [facility]; [facility] Work Phone: 10-27-2021 10:55-0400 Heart rate 65 /min Marci Rose DO Work Phone: [facility]; [facility] Work Phone: 10-27-2021 10:55-0400 Respiratory rate 16 /min Marci Rose DO Work Phone: [facility]; [facility] Work Phone: 10-27-2021 10:55-0400 SaO2% (BldA) [Mass fraction] 97 % Marci Rose DO Work Phone: [facility] Work Phone: 10-27-2021 10:55-0400 Systolic blood pressure 140 mm[Hg] Marci Rose DO Work Phone: [facility]; [facility] Work Phone: 08-18-2021 11:23-0400 Body height 182.88 cm Marci Rose DO Work Phone: [facility]; [facility] Work Phone: 08-18-2021 11:23-0400 Body mass index (BMI) [Ratio] 24.75 kg/m2 Marci Rose DO Work Phone: [facility]; [facility] Work Phone: 08-18-2021 11:23-0400 Body surface area Derived from formula 2.05 m2 Marci Rose DO Work Phone: [facility]; [facility] Work Phone: 08-18-2021 11:23-0400 Body temperature 97.1 [degF] Marci Rose DO Work Phone: [facility]; [facility] Work Phone: 08-18-2021 11:23-0400 Body weight 82.78 kg Marci Rose DO Work Phone: [facility]; [facility] Work Phone: 08-18-2021 11:23-0400 Diastolic blood pressure 96 mm[Hg] Marci Rose DO Work Phone: [facility]; [facility] Work Phone: 08-18-2021 11:23-0400 Heart rate 67 /min Marci Rose DO Work Phone: [facility]; [facility] Work Phone: 08-18-2021 11:23-0400 Respiratory rate 18 /min Marci Rose DO Work Phone: [facility]; [facility] Work Phone: 08-18-2021 11:23-0400 SaO2% (BldA) [Mass fraction] 94 % Marci Rose DO Work Phone: [facility]; [facility] Work Phone: 08-18-2021 11:23-0400 Systolic blood pressure 148 mm[Hg] Marci Rose DO Work Phone: [facility]; [facility] Work Phone: 04-18-2021 09:26-0500 Body height 182.88 cm Angie Chemo [employer]; [facility] Work Phone: 04-18-2021 09:26-0500 Body mass index (BMI) [Ratio] 23.48 kg/m2 Angie Oneilrb [employer] [facility]; [facility] Work Phone: 04-18-2021 09:26-0500 Body surface area Derived from formula 2 m2 Angie Slarb [employer] [facility]; [facility] Work Phone: 04-18-2021 09:26-0500 Body weight 78.53 kg Angie Slarb [employer] [facility]; [facility] Work Phone: 04-18-2021 09:26-0500 Diastolic blood pressure 86 mm[Hg] Angie Slarb [employer] [facility]; [facility] Work Phone: 04-18-2021 09:26-0500 Systolic blood pressure 130 mm[Hg] Angie Mclain LPN [facility]; [facility] Work Phone: 02-26-2021 09:54-0500 Body height 182.88 cm Kitty Ramirez LPN [facility]; [facility] Work Phone: 02-26-2021 09:54-0500 Body mass index (BMI) [Ratio] 23.48 kg/m2 Kitty Ramirez LPN [facility]; [facility] Work Phone: 02-26-2021 09:54-0500 Body surface area Derived from formula 2 m2 Kitty Ramirez LPN [facility]; [facility] Work Phone: 02-26-2021 09:54-0500 Body temperature 97.8 [degF] Kitty Ramirez LPN [facility]; [facility] Work Phone: 02-26-2021 09:54-0500 Body weight 78.53 kg Kitty Ramirez LPN [facility]; [facility] Work Phone: 02-26-2021 09:54-0500 Diastolic blood pressure 90 mm[Hg] Kitty Ramirez LPN [facility]; [facility] Work Phone: 02-26-2021 09:54-0500 Heart rate 75 /min Kitty Ramirez LPN [facility]; [facility] Work Phone: 02-26-2021 09:54-0500 Respiratory rate 16 /min Kitty Ramirez LPN [facility]; [facility] Work Phone: 02-26-2021 09:54-0500 SaO2% (BldA) [Mass fraction] 95 % Kitty Ramirez LPN [facility]; [facility] Work Phone: 02-26-2021 09:54-0500 Systolic blood pressure 138 mm[Hg] Kitty Ramirez LPN [facility]; [facility] Work Phone: 01-15-2021 10:49-0500 Body height 182.88 cm Butch Garcia LPN [facility]; [facility] Work Phone: 01-15-2021 10:49-0500 Body mass index (BMI) [Ratio] 24.09 kg/m2 Butch Garcia LPN [facility]; [facility] Work Phone: 01-15-2021 10:49-0500 Body surface area Derived from formula 2.03 m2 Bucth Garcia LPN [facility]; [facility] Work Phone: 01-15-2021 10:49-0500 Body temperature 97.6 [degF] Butch Garcia LPN [facility]; [facility] Work Phone: 01-15-2021 10:49-0500 Body weight 80.56 kg Butch Garcia LPN [facility]; [facility] Work Phone: 01-15-2021 10:49-0500 Diastolic blood pressure 80 mm[Hg] Butch Garcia LPN [facility]; [facility] Work Phone: 01-15-2021 10:49-0500 Heart rate 94 /min Butch Garcia LPN [facility]; [facility] Work Phone: 01-15-2021 10:49-0500 Respiratory rate 16 /min Butch Garcia LPN [facility]; [facility] Work Phone: 01-15-2021 10:49-0500 SaO2% (BldA) [Mass fraction] 98 % Butch Garcia LPN [facility]; [facility] Work Phone: 01-15-2021 10:49-0500 Systolic blood pressure 122 mm[Hg] Butch Garcia LPN [facility]; [facility] Work Phone: 10-24-2020 11:46-0400 Body height 182.88 cm Martina Lindquist [facility]; [facility] Work Phone: 10-24-2020 11:46-0400 Body mass index (BMI) [Ratio] 24.84 kg/m2 Martina Lindquist [facility]; [facility] Work Phone: 10-24-2020 11:46-0400 Body surface area Derived from formula 2.05 m2 Martina Lindquist [facility]; [facility] Work Phone: 10-24-2020 11:46-0400 Body weight 83.07 kg Martina Lindquist [facility]; [facility] Work Phone: 10-16-2020 08:30-0400 Body height 182.88 cm Martina Abelinoius [facility]; [facility] Work Phone: 10-16-2020 08:30-0400 Body mass index (BMI) [Ratio] 24.84 kg/m2 Martina Abelinoius [facility]; [facility] Work Phone: 10-16-2020 08:30-0400 Body surface area Derived from formula 2.05 m2 Martina Abelinoius [facility]; [facility] Work Phone: 10-16-2020 08:30-0400 Body temperature 97.2 [degF] Martina Abelinoius [facility]; [facility] Work Phone: 10-16-2020 08:30-0400 Body weight 83.07 kg Martina Lindquist [facility]; [facility] Work Phone: 10-16-2020 08:30-0400 Diastolic blood pressure 78 mm[Hg] Martina Gravius [facility]; [facility] Work Phone: 10-16-2020 08:30-0400 Heart rate 78 /min Martina Gravius [facility]; [facility] Work Phone: 10-16-2020 08:30-0400 Respiratory rate 18 /min Martina Gravius [facility]; [facility] Work Phone: 10-16-2020 08:30-0400 SaO2% (BldA) [Mass fraction] 95 % Martina Gravius [facility]; [facility] Work Phone: 10-16-2020 08:30-0400 Systolic blood pressure 110 mm[Hg] Martina Lindquist [facility]; [facility] Work Phone: 03-06-2020 11:29-0500 BMI (Body Mass Index) 23.62 kg/m2 Marci Rose DO Work Phone: [facility]; [facility] Work Phone: Comment on above: vitals per patientwh en sitting pulse ox 75%-- told to increase 3L and it dropped more to 68%-71%-- pt sent to ER 03-06-2020 11:29-0500 Body Temperature 98.1 [degF] Marci Rose DO Work Phone: [facility]; [facility] Work Phone: Comment on above: Method: Oral vitals per patientwh en sitting pulse ox 75%-- told to increase 3L and it dropped more to 68%-71%-- pt sent to ER 03-06-2020 11:29-0500 Body weight 78.98 kg Marci Rose DO Work Phone: [facility]; [facility] Work Phone: Comment on above: vitals per patientwh en sitting pulse ox 75%-- told to increase 3L and it dropped more to 68%-71%-- pt sent to ER 03-06-2020 11:29-0500 BSA (Body Surface Area) 2.01 m2 Marci Rose DO Work Phone: [facility]; [facility] Work Phone: Comment on above: vitals per patientwh en sitting pulse ox 75%-- told to increase 3L and it dropped more to 68%-71%-- pt sent to ER 03-06-2020 11:29-0500 Height 182.88 cm Marci Rose DO Work Phone: [facility]; [facility] Work Phone: Comment on above: vitals per patientwh en sitting pulse ox 75%-- told to increase 3L and it dropped more to 68%-71%-- pt sent to ER 03-06-2020 11:29-0500 Pulse (Heart Rate) 88 /min Marci Rose DO Work Phone: [facility]; [facility] Work Phone: Comment on above: Pattern: Regular vitals per patientwh en sitting pulse ox 75%-- told to increase 3L and it dropped more to 68%-71%-- pt sent to ER 03-06-2020 11:29-0500 Pulse Oximetry 75 % Marci Rose [facility]; [facility] Work Phone: Comment on above: Room air vitals per patientwh en sitting pulse ox 75%-- told to increase 3L and it dropped more to 68%-71%-- pt sent to ER 03-06-2020 11:29-0500 SaO2% (BldA) [Mass fraction] 75 % Marci Rose DO Work Phone: [facility]; [facility] Work Phone: Comment on above: Room air vitals per patientwh en sitting pulse ox 75%-- told to increase 3L and it dropped more to 68%-71%-- pt sent to ER 03-04-2020 10:01-0500 BMI (Body Mass Index) 23.62 kg/m2 Angie Mclain LPN [facility]; [facility] Work Phone: Comment on above: pt did not report 03-04-2020 10:01-0500 Body weight 78.98 kg Angie Mclain LPN [facility]; [facility] Work Phone: Comment on above: pt did not report 03-04-2020 10:01-0500 BSA (Body Surface Area) 2.01 m2 Angie Mclain LPN [facility]; [facility] Work Phone: Comment on above: pt did not report 03-04-2020 10:01-0500 Height 182.88 cm Angie Mclain LPN [facility]; [facility] Work Phone: Comment on above: pt did not report 02-19-2020 13:04-0500 BMI (Body Mass Index) 23.62 kg/m2 Marci Rose DO Work Phone: [facility]; [facility] Work Phone: 02-19-2020 13:04-0500 Body weight 78.98 kg Marci Rose DO Work Phone: [facility]; [facility] Work Phone: 02-19-2020 13:04-0500 BP Diastolic 78 mm[Hg] Marci Rose DO Work Phone: [facility]; [facility] Work Phone: Comment on above: Patient Position: Si tting 02-19-2020 13:04-0500 BP Systolic 120 mm[Hg] Marci Rose DO Work Phone: [facility]; [facility] Work Phone: Comment on above: Patient Position: Si tting 02-19-2020 13:04-0500 BSA (Body Surface Area) 2.01 m2 Marci Rose DO Work Phone: [facility]; [facility] Work Phone: 02-19-2020 13:04-0500 Height 182.88 cm Marci Rose DO Work Phone: [facility]; [facility] Work Phone: 08-18-2019 10:23-0400 BMI (Body Mass Index) 23.62 kg/m2 Martina Lindquist [facility] Work Phone: 08-18-2019 10:23-0400 Body Temperature 97.1 [degF] Martina Lindquist [facility] Work Phone: Comment on above: Method: Temporal 08-18-2019 10:23-0400 Body weight 78.98 kg Martina Lindquist [facility] Work Phone: 08-18-2019 10:23-0400 BP Diastolic 88 mm[Hg] Martina Lindquist [facility] Work Phone: Comment on above: Patient Position: Si tting; Cuff Location: Left Arm; Cuff Size: Standard 08-18-2019 10:23-0400 BP Systolic 122 mm[Hg] Martina Lindquist CMA [facility] Work Phone: Comment on above: Patient Position: Si tting; Cuff Location: Left Arm; Cuff Size: Standard 08-18-2019 10:23-0400 BSA (Body Surface Area) 2.01 m2 Martina Lindquist [facility] Work Phone: 08-18-2019 10:23-0400 Height 182.88 cm Martina Lindquist [facility] Work Phone: 08-18-2019 10:23-0400 Pulse (Heart Rate) 77 /min Martina Lindquist [facility] Work Phone: Comment on above: Pattern: Regular 08-18-2019 10:23-0400 Pulse Oximetry 95 % Marci Rose [facility] Work Phone: Comment on above: Room air 08-18-2019 10:23-0400 Respiratory Rate 18 /min Martina Lindquist [facility] Work Phone: Comment on above: Pattern: Unlabored 08-18-2019 10:23-0400 SaO2% (BldA) [Mass fraction] 95 % Martina Lindquist [facility]; [facility] Work Phone: Comment on above: Room air 02-09-2019 10:22-0500 BMI (Body Mass Index) 22.8 kg/m2 Martina Lindquist [facility] Work Phone: 02-09-2019 10:22-0500 Body Temperature 98.2 [degF] Martina Lindquist [facility] Work Phone: Comment on above: Method: Temporal 02-09-2019 10:22-0500 Body weight 76.26 kg Martina Lindquist [facility] Work Phone: 02-09-2019 10:22-0500 BP Diastolic 80 mm[Hg] Martina Lindquist [facility] Work Phone: Comment on above: Patient Position: Si tting; Cuff Location: Left Arm; Cuff Size: Standard 02-09-2019 10:22-0500 BP Systolic 110 mm[Hg] Martina Lindquist [facility] Work Phone: Comment on above: Patient Position: Si tting; Cuff Location: Left Arm; Cuff Size: Standard 02-09-2019 10:22-0500 BSA (Body Surface Area) 1.98 m2 Martina Lindquist [facility] Work Phone: 02-09-2019 10:22-0500 Height 182.88 cm Martina Lindquist [facility] Work Phone: 02-09-2019 10:22-0500 Pulse (Heart Rate) 72 /min Martina Lindquist [facility] Work Phone: Comment on above: Pattern: Regular 02-09-2019 10:22-0500 Pulse Oximetry 97 % Marci Rose [facility] Internal [facility] Work Phone: Comment on above: Room air 02-09-2019 10:22-0500 Respiratory Rate 16 /min Martina Lindquist [facility] Work Phone: Comment on above: Pattern: Unlabored 02-09-2019 10:22-0500 SaO2% (BldA) [Mass fraction] 97 % Martina Lindquist [facility]; [facility] Work Phone: Comment on above: Room air 10-19-2018 09:43-0400 BMI (Body Mass Index) 22.12 kg/m2 Martina Lindquist [facility] Work Phone: 10-19-2018 09:43-0400 Body Temperature 97.6 [degF] Martina Lindquist [facility] Work Phone: Comment on above: Method: Temporal 10-19-2018 09:43-0400 Body weight 73.99 kg Martina Lindquist [facility] Work Phone: 10-19-2018 09:43-0400 BP Diastolic 84 mm[Hg] Martina Lindquist [facility] Work Phone: Comment on above: Patient Position: Si tting; Cuff Location: Left Arm; Cuff Size: Standard 10-19-2018 09:43-0400 BP Systolic 136 mm[Hg] Martina Lindquist [facility] Work Phone: Comment on above: Patient Position: Si tting; Cuff Location: Left Arm; Cuff Size: Standard 10-19-2018 09:43-0400 BSA (Body Surface Area) 1.95 m2 Martina Lindquist [facility] Work Phone: 10-19-2018 09:43-0400 Height 182.88 cm Martina Lindquist [facility] Work Phone: 10-19-2018 09:43-0400 Pulse (Heart Rate) 69 /min Martina Lindquist [facility] Work Phone: Comment on above: Pattern: Regular 10-19-2018 09:43-0400 Pulse Oximetry 97 % Marci Rose [facility] Internal Medicine Work Phone: Comment on above: Room air 10-19-2018 09:43-0400 Respiratory Rate 18 /min Martina Lindquist [facility] Work Phone: Comment on above: Pattern: Unlabored 10-19-2018 09:43-0400 SaO2% (BldA) [Mass fraction] 97 % Martina Lindquist [facility]; [facility] Work Phone: Comment on above: Room air 10-10-2018 09:43-0400 BMI (Body Mass Index) 22.12 kg/m2 Martina Lindquist [facility] Work Phone: 10-10-2018 09:43-0400 Body Temperature 97.2 [degF] Maritna Lindquist [facility] Internal Medicine Work Phone: Comment on above: Method: Temporal 10-10-2018 09:43-0400 Body weight 73.99 kg Martina Lindquist [facility] Work Phone: 10-10-2018 09:43-0400 BP Diastolic 72 mm[Hg] Martina Lindquist [facility] Work Phone: Comment on above: Patient Position: Si tting; Cuff Location: Left Arm; Cuff Size: Standard 10-10-2018 09:43-0400 BP Systolic 116 mm[Hg] Martina Lindquist [facility] Work Phone: Comment on above: Patient Position: Si tting; Cuff Location: Left Arm; Cuff Size: Standard 10-10-2018 09:43-0400 BSA (Body Surface Area) 1.95 m2 Martina Lindquist [facility] Internal [facility] Work Phone: 10-10-2018 09:43-0400 Height 182.88 cm Martina Lindquist [facility] Work Phone: 10-10-2018 09:43-0400 Pulse (Heart Rate) 79 /min Martina Lindquist [facility] Medicine Work Phone: Comment on above: Pattern: Regular 10-10-2018 09:43-0400 Pulse Oximetry 97 % Marci Rose [facility] Internal Medicine Work Phone: Comment on above: Room air 10-10-2018 09:43-0400 Respiratory Rate 18 /min Martina Lindquist [facility] Work Phone: Comment on above: Pattern: Unlabored 10-10-2018 09:43-0400 SaO2% (BldA) [Mass fraction] 97 % Martina Lindquist [facility]; [facility] Work Phone: Comment on above: Room air 10-10-2018 09:29-0400 BMI (Body Mass Index) 22.26 kg/m2 Martina Lindquist [facility] Work Phone: 10-10-2018 09:29-0400 Body weight 74.45 kg Martina Lindquist [facility] Work Phone: 10-10-2018 09:29-0400 BSA (Body Surface Area) 1.96 m2 Martina Lindquist [facility] Work Phone: 10-10-2018 09:29-0400 Height 182.88 cm Martina Lindquist [facility] Work Phone: 08-10-2018 10:58-0400 BMI (Body Mass Index) 22.26 kg/m2 Martina Lindquist [facility] Work Phone: 08-10-2018 10:58-0400 Body Temperature 96 [degF] Martina Lindquist [facility] Work Phone: Comment on above: Method: Temporal 08-10-2018 10:58-0400 Body weight 74.45 kg Martina Lindquist [facility] Work Phone: 08-10-2018 10:58-0400 BP Diastolic 79 mm[Hg] Martina Lindquist [facility] Work Phone: Comment on above: Patient Position: Si tting; Cuff Location: Left Arm; Cuff Size: Standard 08-10-2018 10:58-0400 BP Systolic 116 mm[Hg] Martina Lindquist [facility] Work Phone: Comment on above: Patient Position: Si tting; Cuff Location: Left Arm; Cuff Size: Standard 08-10-2018 10:58-0400 BSA (Body Surface Area) 1.96 m2 Martina Lindquist [facility] Work Phone: 08-10-2018 10:58-0400 Height 182.88 cm Martina Lindquist [facility] Work Phone: 08-10-2018 10:58-0400 Pulse (Heart Rate) 78 /min Martina Lindquist [facility] Work Phone: Comment on above: Pattern: Regular 08-10-2018 10:58-0400 Pulse Oximetry 96 % Marci Rose [facility] Work Phone: Comment on above: Room air 08-10-2018 10:58-0400 Respiratory Rate 18 /min Martina Lindquist [facility] Work Phone: Comment on above: Pattern: Unlabored 08-10-2018 10:58-0400 SaO2% (BldA) [Mass fraction] 96 % Martina Lindquist [facility]; [facility] Work Phone: Comment on above: Room air 08-10-2018 10:58-0400 Weight 74.45 kg Marci Rose [facility] Work Phone: 02-07-2018 10:30-0500 BMI (Body Mass Index) 24.43 kg/m2 Izzy Marshall RN [facility] Work Phone: 02-07-2018 10:30-0500 Body Temperature 96.5 [degF] Izzy Marshall RN [facility] Work Phone: Comment on above: Method: Temporal 02-07-2018 10:30-0500 Body weight 81.7 kg Izzy Marshall RN [facility] Work Phone: 02-07-2018 10:30-0500 BP Diastolic 83 mm[Hg] Izzy Marshall RN [facility] Work Phone: Comment on above: Patient Position: Si tting; Cuff Location: Left Arm; Cuff Size: Large 02-07-2018 10:30-0500 BP Systolic 126 mm[Hg] Izzy Marshall RN [facility] Work Phone: Comment on above: Patient Position: Si tting; Cuff Location: Left Arm; Cuff Size: Large 02-07-2018 10:30-0500 BSA (Body Surface Area) 2.04 m2 Izzy Marshall RN [facility] Work Phone: 02-07-2018 10:30-0500 Height 182.88 cm Izzy Marshall RN [facility] Work Phone: 02-07-2018 10:30-0500 Pulse (Heart Rate) 74 /min Izzy Marshall RN [facility] Work Phone: Comment on above: Pattern: Regular 02-07-2018 10:30-0500 Pulse Oximetry 97 % Marci Rose [facility] Work Phone: Comment on above: Room air 02-07-2018 10:30-0500 Respiratory Rate 18 /min Izzy Marshall RN [facility] Work Phone: Comment on above: Pattern: Unlabored 02-07-2018 10:30-0500 SaO2% (BldA) [Mass fraction] 97 % Izzy Marshall RN [facility]; [facility] Work Phone: Comment on above: Room air 02-07-2018 10:30-0500 Weight 81.7 kg Marci Rose [facility] Work Phone: 10-06-2017 08:35-0400 BMI (Body Mass Index) 23.33 kg/m2 Izzy Marshall RN [facility] Work Phone: 10-06-2017 08:35-0400 Body weight 78.02 kg Izzy Marshall RN [facility] Work Phone: 10-06-2017 08:35-0400 BP Diastolic 80 mm[Hg] Izzy Marshall RN [facility] Work Phone: Comment on above: Patient Position: Si tting; Cuff Location: Left Arm; Cuff Size: Large 10-06-2017 08:35-0400 BP Systolic 122 mm[Hg] Izzy Marshall RN [facility] Work Phone: Comment on above: Patient Position: Si tting; Cuff Location: Left Arm; Cuff Size: Large 10-06-2017 08:35-0400 BSA (Body Surface Area) 2 m2 Izzy Marshall RN [facility] Work Phone: 10-06-2017 08:35-0400 Height 182.88 cm Izzy Marshall RN [facility] Work Phone: 10-06-2017 08:35-0400 Pulse (Heart Rate) 72 /min Izzy Marshall RN [facility] Work Phone: Comment on above: Pattern: Regular 10-06-2017 08:35-0400 Pulse Oximetry 97 % Marci Rose [facility] Work Phone: Comment on above: Room air 10-06-2017 08:35-0400 Respiratory Rate 18 /min Izzy Marshall RN [facility] Work Phone: Comment on above: Pattern: Unlabored 10-06-2017 08:35-0400 SaO2% (BldA) [Mass fraction] 97 % Izzy Marshall RN [facility]; [facility] Work Phone: Comment on above: Room air 10-06-2017 08:35-0400 Weight 78.02 kg Marci Rose [facility] Work Phone: 06-03-2017 09:07-0400 BMI (Body Mass Index) 23.39 kg/m2 Izzy Marshall RN [facility] Work Phone: 06-03-2017 09:07-0400 Body weight 78.25 kg Izzy Marshall RN [facility] Work Phone: 06-03-2017 09:07-0400 BP Diastolic 80 mm[Hg] Izzy Marshall RN [facility] Work Phone: Comment on above: Patient Position: Si tting; Cuff Location: Left Arm; Cuff Size: Large 06-03-2017 09:07-0400 BP Systolic 130 mm[Hg] Izzy Marshall RN [facility] Work Phone: Comment on above: Patient Position: Si tting; Cuff Location: Left Arm; Cuff Size: Large 06-03-2017 09:07-0400 BSA (Body Surface Area) 2 m2 Izzy Marshall RN [facility] Work Phone: 06-03-2017 09:07-0400 Height 182.88 cm Izzy Marshall RN [facility] Work Phone: 06-03-2017 09:07-0400 Pulse (Heart Rate) 72 /min Izzy Marshall RN [facility] Work Phone: Comment on above: Pattern: Regular 06-03-2017 09:07-0400 Pulse Oximetry 96 % Marci Rose [facility] Work Phone: Comment on above: Room air 06-03-2017 09:07-0400 Respiratory Rate 18 /min Izzy Marshall RN [facility] Work Phone: Comment on above: Pattern: Unlabored 06-03-2017 09:07-0400 SaO2% (BldA) [Mass fraction] 96 % Izzy Marshall RN [facility]; [facility] Work Phone: Comment on above: Room air 06-03-2017 09:07-0400 Weight 78.25 kg Marci Rose [facility] Work Phone: 02-24-2017 11:37-0500 BMI (Body Mass Index) 23.19 kg/m2 Izzy Marshall RN [facility] Work Phone: 02-24-2017 11:37-0500 Body weight 77.57 kg Izzy Marshall RN [facility] Work Phone: 02-24-2017 11:37-0500 BP Diastolic 98 mm[Hg] Izzy Marshall RN [facility] Work Phone: Comment on above: Patient Position: Si tting; Cuff Location: Left Arm; Cuff Size: Standard 02-24-2017 11:37-0500 BP Systolic 142 mm[Hg] Izzy Marshall RN [facility] Work Phone: Comment on above: Patient Position: Si tting; Cuff Location: Left Arm; Cuff Size: Standard 02-24-2017 11:37-0500 BSA (Body Surface Area) 1.99 m2 Izzy Marshall RN [facility] Work Phone: 02-24-2017 11:37-0500 Height 182.88 cm Izzy Marshall RN [facility] Work Phone: 02-24-2017 11:37-0500 Pulse (Heart Rate) 74 /min Izzy Marshall RN [facility] Work Phone: Comment on above: Pattern: Regular 02-24-2017 11:37-0500 Pulse Oximetry 98 % Marci Rose [facility] Work Phone: Comment on above: Room air 02-24-2017 11:37-0500 Respiratory Rate 16 /min Izzy Marshall RN [facility] Work Phone: Comment on above: Pattern: Unlabored 02-24-2017 11:37-0500 SaO2% (BldA) [Mass fraction] 98 % Izzy Marshall RN [facility]; [facility] Work Phone: Comment on above: Room air 02-24-2017 11:37-0500 Weight 77.57 kg Marci Rose [facility] Work Phone: 10-21-2016 11:03-0400 BMI (Body Mass Index) 23.06 kg/m2 Izzy Marshall RN [facility] Work Phone: 10-21-2016 11:03-0400 Body weight 77.11 kg Izzy Marshall RN [facility] Work Phone: 10-21-2016 11:03-0400 BP Diastolic 62 mm[Hg] Izzy Marshall RN [facility] Work Phone: Comment on above: Patient Position: Si tting; Cuff Location: Left Arm; Cuff Size: Large 10-21-2016 11:03-0400 BP Systolic 118 mm[Hg] Izzy Marshall RN [facility] Work Phone: Comment on above: Patient Position: Si tting; Cuff Location: Left Arm; Cuff Size: Large 10-21-2016 11:03-0400 BSA (Body Surface Area) 1.99 m2 Izzy Marshall RN [facility] Work Phone: 10-21-2016 11:03-0400 Height 182.88 cm Izzy Marshall RN [facility] Work Phone: 10-21-2016 11:03-0400 Pulse (Heart Rate) 65 /min Izzy Marshall RN [facility] Work Phone: Comment on above: Pattern: Regular 10-21-2016 11:03-0400 Pulse Oximetry 97 % Marci Rose [facility] Work Phone: Comment on above: Room air 10-21-2016 11:03-0400 Respiratory Rate 18 /min Izzy Marshall RN [facility] Work Phone: Comment on above: Pattern: Unlabored 10-21-2016 11:03-0400 SaO2% (BldA) [Mass fraction] 97 % Izzy Marshall RN [facility]; [facility] Work Phone: Comment on above: Room air 10-21-2016 11:03-0400 Weight 77.11 kg Marci Rose [facility] Work Phone: 07-21-2016 10:35-0400 BMI (Body Mass Index) 22.92 kg/m2 Izzy Marshall RN [facility] Work Phone: 07-21-2016 10:35-0400 Body weight 76.66 kg Izzy Marshall RN [facility] Work Phone: 07-21-2016 10:35-0400 BP Diastolic 68 mm[Hg] Izzy Marshall RN [facility] Work Phone: Comment on above: Patient Position: Si tting; Cuff Location: Left Arm; Cuff Size: Large 07-21-2016 10:35-0400 BP Systolic 118 mm[Hg] Izzy Marshall RN [facility] Work Phone: Comment on above: Patient Position: Si tting; Cuff Location: Left Arm; Cuff Size: Large 07-21-2016 10:35-0400 BSA (Body Surface Area) 1.98 m2 Izzy Marshall RN [facility] Work Phone: 07-21-2016 10:35-0400 Height 182.88 cm Izzy Marshall RN [facility] Work Phone: 07-21-2016 10:35-0400 Pulse (Heart Rate) 72 /min Izzy Marshall RN [facility] Work Phone: Comment on above: Pattern: Regular 07-21-2016 10:35-0400 Pulse Oximetry 96 % Marci Rose [facility] Work Phone: Comment on above: Room air 07-21-2016 10:35-0400 Respiratory Rate 18 /min Izzy Marshall RN [facility] Work Phone: Comment on above: Pattern: Unlabored 07-21-2016 10:35-0400 SaO2% (BldA) [Mass fraction] 96 % Izzy Marshall RN [facility]; [facility] Work Phone: Comment on above: Room air 07-21-2016 10:35-0400 Weight 76.66 kg Marci Riojason [facility] Work Phone: 12-23-2015 13:29-0400 BMI (Body Mass Index) 22.55 kg/m2 Izzy Marshall RN [facility] Work Phone: 12-23-2015 13:29-0400 Body weight 75.41 kg Izzy Marshall RN [facility] Work Phone: 12-23-2015 13:29-0400 BP Diastolic 80 mm[Hg] Izzy Marshall RN [facility] Work Phone: Comment on above: Patient Position: Si tting; Cuff Location: Left Arm; Cuff Size: Large 12-23-2015 13:29-0400 BP Systolic 122 mm[Hg] Izzy Marshall RN [facility] Work Phone: Comment on above: Patient Position: Si tting; Cuff Location: Left Arm; Cuff Size: Large 12-23-2015 13:29-0400 BSA (Body Surface Area) 1.97 m2 Izzy Marshall RN [facility] Work Phone: 12-23-2015 13:29-0400 Height 182.88 cm Izzy Marshall RN [facility] Work Phone: 12-23-2015 13:29-0400 Pulse (Heart Rate) 80 /min Izzy Marshall RN [facility] Work Phone: Comment on above: Pattern: Regular 12-23-2015 13:29-0400 Pulse Oximetry 97 % Marci Rose [facility] Work Phone: Comment on above: Room air 12-23-2015 13:29-0400 Respiratory Rate 18 /min Izzy Marshall RN [facility] Work Phone: Comment on above: Pattern: Unlabored 12-23-2015 13:29-0400 SaO2% (BldA) [Mass fraction] 97 % Izzy Marshall RN [facility]; [facility] Work Phone: Comment on above: Room air 12-23-2015 13:29-0400 Weight 75.41 kg Marci Rose [facility] Work Phone: 10-03-2015 09:56-0400 BMI (Body Mass Index) 22.02 kg/m2 Angie Slarb [employer] [facility] Work Phone: 10-03-2015 09:56-0400 Body Temperature 97.6 [degF] Angie Slarb [employer] [facility] Work Phone: 10-03-2015 09:56-0400 Body weight 73.65 kg Angie Slarb [employer] [facility] Work Phone: 10-03-2015 09:56-0400 BP Diastolic 78 mm[Hg] Angie Slarb [employer] OPERATOR [facility] Work Phone: Comment on above: Patient Position: Si tting; Cuff Location: Left Arm; Cuff Size: Standard 10-03-2015 09:56-0400 BP Systolic 122 mm[Hg] Angie Slarb [employer] OPERATOR [facility] Work Phone: Comment on above: Patient Position: Si tting; Cuff Location: Left Arm; Cuff Size: Standard 10-03-2015 09:56-0400 BSA (Body Surface Area) 1.95 m2 Angie Mclain LPN [facility] Work Phone: 10-03-2015 09:56-0400 Height 182.88 cm Angie Mclain [employer] O[employer]ATOR [facility] Work Phone: 10-03-2015 09:56-0400 Pulse (Heart Rate) 77 /min Angie Mclain LPN [facility] Work Phone: Comment on above: Pattern: Regular 10-03-2015 09:56-0400 Pulse Oximetry 98 % Macri Rose [facility] Work Phone: Comment on above: Room air 10-03-2015 09:56-0400 Respiratory Rate 17 /min Angie Mclain [employer] O[employer]ATOR [facility] Work Phone: Comment on above: Pattern: Unlabored 10-03-2015 09:56-0400 SaO2% (BldA) [Mass fraction] 98 % Angie Mclain [employer] OPERATOR [facility]; [facility] Work Phone: Comment on above: Room air 10-03-2015 09:56-0400 Weight 73.65 kg Marci Rose [facility] Work Phone: 09-05-2015 09:19-0400 BMI (Body Mass Index) 21.43 kg/m2 [facility] Work Phone: 09-05-2015 09:19-0400 Body Temperature 96.4 [degF] [facility] Work Phone: Comment on above: Method: Tympanic 09-05-2015 09:19-0400 Body weight 71.67 kg [facility] Work Phone: 09-05-2015 09:19-0400 BP Diastolic 78 mm[Hg] [facility] Work Phone: Comment on above: Patient Position: Si tting; Cuff Location: Left Arm; Cuff Size: Standard 09-05-2015 09:19-0400 BP Systolic 124 mm[Hg] [facility] Work Phone: Comment on above: Patient Position: Si tting; Cuff Location: Left Arm; Cuff Size: Standard 09-05-2015 09:19-0400 BSA (Body Surface Area) 1.93 m2 [facility] Work Phone: 09-05-2015 09:19-0400 Height 182.88 cm [facility] Work Phone: 09-05-2015 09:19-0400 Pulse (Heart Rate) 80 /[facility] Work Phone: Comment on above: Pattern: Regular 09-05-2015 09:19-0400 Pulse Oximetry 98 % Marci Rose [facility] Work Phone: Comment on above: Room air 09-05-2015 09:19-0400 Respiratory Rate 18 /min [facility] Work Phone: Comment on above: Pattern: Unlabored 09-05-2015 09:19-0400 SaO2% (BldA) [Mass fraction] 98 % [facility]; [facility] Work Phone: Comment on above: Room air 09-05-2015 09:19-0400 Weight 71.67 kg Marci Rose [facility] Work Phone: 06-05-2015 11:19-0400 BMI (Body Mass Index) 22.51 kg/m2 Evi Lima RN [facility] Work Phone: 06-05-2015 11:19-0400 Body Temperature 97.2 [degF] Evi Lima RN [facility] Work Phone: Comment on above: Method: Temporal 06-05-2015 11:19-0400 Body weight 75.3 kg Evi Lima RN [facility] Work Phone: 06-05-2015 11:19-0400 BP Diastolic 74 mm[Hg] Evi Lima RN [facility] Work Phone: Comment on above: Patient Position: Si tting; Cuff Location: Left Arm; Cuff Size: Standard 06-05-2015 11:190400 BP Systolic 124 mm[Hg] Evi Lima RN [facility] Work Phone: Comment on above: Patient Position: Si tting; Cuff Location: Left Arm; Cuff Size: Standard 06-05-2015 11:0400 BSA (Body Surface Area) 1.97 m2 Evi Lima RN [facility] Work Phone: 06-05-2015 11:0400 Height 182.88 cm Evi Lima RN [facility] Work Phone: 06-05-2015 11:19-0400 Pulse (Heart Rate) 88 /min Evi Lima RN [facility] Work Phone: Comment on above: Pattern: Regular 06-05-2015 11:19-0400 Pulse Oximetry 97 % Marci Rose [facility] Work Phone: Comment on above: Room air 06-05-2015 11:19-0400 Respiratory Rate 16 /min Evi Lima RN [facility] Work Phone: Comment on above: Pattern: Unlabored 06-05-2015 11:19-0400 SaO2% (BldA) [Mass fraction] 97 % Evi Lima RN [facility]; [facility] Work Phone: Comment on above: Room air 06-05-2015 11:19-0400 Weight 75.3 kg Marci Rose [facility] Work Phone: 03-06-2015 10:26-0500 BMI (Body Mass Index) 23.19 kg/m2 Izzy Marshall RN [facility] Work Phone: 03-06-2015 10:26-0500 Body weight 77.57 kg Izzy Marshall RN [facility] Work Phone: 03-06-2015 10:26-0500 BP Diastolic 78 mm[Hg] Izzy Marshall RN [facility] Work Phone: Comment on above: Patient Position: Si tting; Cuff Location: Left Arm; Cuff Size: Large 03-06-2015 10:26-0500 BP Systolic 128 mm[Hg] Izzy Marshall RN [facility] Work Phone: Comment on above: Patient Position: Si tting; Cuff Location: Left Arm; Cuff Size: Large 03-06-2015 10:26-0500 BSA (Body Surface Area) 1.99 m2 Izzy Marshall RN [facility] Work Phone: 03-06-2015 10:26-0500 Height 182.88 cm Izzy Marshall RN [facility] Work Phone: 03-06-2015 10:26-0500 Pulse (Heart Rate) 75 /min Izzy Marshall RN [facility] Work Phone: Comment on above: Pattern: Regular 03-06-2015 10:26-0500 Pulse Oximetry 97 % Marci Rose [facility] Work Phone: Comment on above: Room air 03-06-2015 10:26-0500 Respiratory Rate 18 /min Izzy Marshall RN [facility] Work Phone: Comment on above: Pattern: Unlabored 03-06-2015 10:26-0500 SaO2% (BldA) [Mass fraction] 97 % Izzy Marshall RN [facility]; [facility] Work Phone: Comment on above: Room air 03-06-2015 10:260500 Weight 77.57 kg Marci Rose [facility] Work Phone: 11-27-2014 10:0400 BMI (Body Mass Index) 23.21 kg/m2 Evi Lima RN [facility] Work Phone: 11-27-2014 10:0400 Body Temperature 97.9 [degF] Evi Lima RN [facility] Work Phone: Comment on above: Method: Temporal 11-27-2014 10:0400 Body weight 77.62 kg Evi Lima RN [facility] Work Phone: 11-27-2014 10:090400 BP Diastolic 68 mm[Hg] Evi Lima RN [facility] Work Phone: Comment on above: Patient Position: Si tting; Cuff Location: Left Arm; Cuff Size: Standard 11-27-2014 10:0400 BP Systolic 122 mm[Hg] Evi Lima RN [facility] Work Phone: Comment on above: Patient Position: Si tting; Cuff Location: Left Arm; Cuff Size: Standard 11-27-2014 10:040 BSA (Body Surface Area) 1.99 m2 Evi Lima RN [facility] Work Phone: 11-27-2014 10: Height 182.88 cm Evi Lima RN [facility] Work Phone: 11-27-2014 10:040 Pulse (Heart Rate) 67 /min Evi Lima RN [facility] Work Phone: Comment on above: Pattern: Regular 11-27-2014 10:040 Pulse Oximetry 97 % Marci Rose [facility] Work Phone: Comment on above: Room air 11-27-2014 10:0400 Respiratory Rate 16 /min Evi Lima RN [facility] Work Phone: Comment on above: Pattern: Unlabored 11-27-2014 10:0400 SaO2% (BldA) [Mass fraction] 97 % Evi Lima RN [facility]; [facility] Work Phone: Comment on above: Room air 11-27-2014 10:090400 Weight 77.62 kg Marci Rose [facility] Work Phone: 07-20-2014 10:12-0400 BMI (Body Mass Index) 23.21 kg/m2 Izzy Marshall RN [facility] Work Phone: 07-20-2014 10:12-0400 Body weight 77.62 kg Izzy Marshall RN [facility] Work Phone: 07-20-2014 10:12-0400 BP Diastolic 82 mm[Hg] Izzy Marshall RN [facility] Work Phone: Comment on above: Patient Position: Si tting; Cuff Location: Left Arm; Cuff Size: Large 07-20-2014 10:12-0400 BP Systolic 128 mm[Hg] Izzy Marshall RN [facility] Work Phone: Comment on above: Patient Position: Si tting; Cuff Location: Left Arm; Cuff Size: Large 07-20-2014 10:12-0400 BSA (Body Surface Area) 1.99 m2 Izzy Marshall RN [facility] Work Phone: 07-20-2014 10:12-0400 Height 182.88 cm Izzy Marshall RN [facility] Work Phone: 07-20-2014 10:12-0400 Pulse (Heart Rate) 65 /min Izzy Marshall RN [facility] Work Phone: Comment on above: Pattern: Regular 07-20-2014 10:12-0400 Pulse Oximetry 96 % Marci Rose [facility] Work Phone: Comment on above: Room air 07-20-2014 10:12-0400 Respiratory Rate 18 /min Izzy Marshall RN [facility] Work Phone: Comment on above: Pattern: Unlabored 07-20-2014 10:12-0400 SaO2% (BldA) [Mass fraction] 96 % Izzy Marshall RN [facility]; [facility] Work Phone: Comment on above: Room air 07-20-2014 10:12-0400 Weight 77.62 kg Marci Rose [facility] Work Phone: 04-06-2014 10:06-0500 BMI (Body Mass Index) 23.93 kg/m2 Izzy Marshall RN [facility] Work Phone: Comment on above: [facility] [place] [facility] 10:06-0500 Body weight 80.03 kg Izzy Marshall RN [facility] Work Phone: Comment on above: [facility] [place] [facility] 10:06-0500 BP Diastolic 70 mm[Hg] Izzy Marshall RN [facility] Work Phone: Comment on above: Patient Position: Si tting; Cuff Location: Left Arm; Cuff Size: Large [facility] [place] [facility] 10:06-0500 BP Systolic 118 mm[Hg] Izzy Marshall RN [facility] Work Phone: Comment on above: Patient Position: Si tting; Cuff Location: Left Arm; Cuff Size: Large [facility] [place] [facility] 10:06-0500 BSA (Body Surface Area) 2.02 m2 Izzy Marshall RN [facility] Work Phone: Comment on above: [facility]lad [place] [facility] [place] [facility] 10:06-0500 Height 182.88 cm Izzy Marshall RN [facility] Work Phone: Comment on above: [facility] [place] [facility] 10:06-0500 Pulse (Heart Rate) 97 /min Izzy Marshall RN [facility] Work Phone: Comment on above: Pattern: Regular [facility] [place] [facility] 10:06-0500 Pulse Oximetry 98 % Marci Rose [facility] Work Phone: Comment on above: Room air [facility] Ronald [facility] [place] [facility] 10:06-0500 Respiratory Rate 20 /min Izzy Marshall RN [facility] Work Phone: Comment on above: Pattern: Unlabored [facility] [place] [facility] 10:06-0500 SaO2% (BldA) [Mass fraction] 98 % Izzy Marshall RN [facility]; [facility] Work Phone: Comment on above: Room air [facility] [place] [facility] 10:06-0500 Weight 80.03 kg Marci Rose [facility] Work Phone: Comment on above: [facility] [place] [facility]-2014 09:49-0500 BMI (Body Mass Index) 23.6 kg/m2 Izzy Marshall RN [facility] Work Phone: 03-23-2014 09:49-0500 Body weight 78.93 kg Izzy Marshall RN [facility] Work Phone: 03-23-2014 09:49-0500 BP Diastolic 84 mm[Hg] Izzy Marshall RN [facility] Work Phone: Comment on above: Patient Position: Si tting; Cuff Location: Left Arm; Cuff Size: Large 03-23-2014 09:49-0500 BP Systolic 142 mm[Hg] Izzy Marshall RN [facility] Work Phone: Comment on above: Patient Position: Si tting; Cuff Location: Left Arm; Cuff Size: Large 03-23-2014 09:49-0500 BSA (Body Surface Area) 2.01 m2 Izzy Marshall RN [facility] Work Phone: 03-23-2014 09:49-0500 Height 182.88 cm Izzy Marshall RN [facility] Work Phone: 03-23-2014 09:49-0500 Pulse (Heart Rate) 78 /min Izzy Marshall RN [facility] Work Phone: Comment on above: Pattern: Regular 03-23-2014 09:49-0500 Pulse Oximetry 98 % Marci Rose [facility] Work Phone: Comment on above: Room air 03-23-2014 09:49-0500 Respiratory Rate 18 /min Izzy Marshall RN [facility] Work Phone: Comment on above: Pattern: Unlabored 03-23-2014 09:49-0500 SaO2% (BldA) [Mass fraction] 98 % Izzy Marshall RN [facility]; [facility] Work Phone: Comment on above: Room air 03-23-2014 09:49-0500 Weight 78.93 kg Marci Rose [facility] Work Phone: 06-10-2011 08:59-0400 BMI (Body Mass Index) 23.74 kg/m2 Izzy Marshall RN [facility] Work Phone: 06-10-2011 08:59-0400 Body weight 79.41 kg Izzy Marshall RN [facility] Work Phone: 06-10-2011 08:59-0400 BP Diastolic 60 mm[Hg] Izzy Marshall RN [facility] Work Phone: Comment on above: Patient Position: Si tting; Cuff Location: Left Arm; Cuff Size: Large 06-10-2011 08:59-0400 BP Systolic 110 mm[Hg] Izzy Marshall RN [facility] Work Phone: Comment on above: Patient Position: Si tting; Cuff Location: Left Arm; Cuff Size: Large 06-10-2011 08:59-0400 BSA (Body Surface Area) 2.01 m2 Izzy Marsahll RN [facility] Work Phone: 06-10-2011 08:59-0400 Height 182.88 cm Izzy Marshall RN [facility] Work Phone: 06-10-2011 08:59-0400 Pulse (Heart Rate) 60 /min Izzy Marshall RN [facility] Work Phone: Comment on above: Pattern: Regular 06-10-2011 08:59-0400 Respiratory Rate 20 /min Izzy Marshall RN [facility] Work Phone: Comment on above: Pattern: Unlabored 06-10-2011 08:59-0400 Weight 79.41 kg Marci Rose [facility] Work Phone: 05-27-2011 10:39-0400 BMI (Body Mass Index) 23.77 kg/m2 Izzy Marshall RN [facility] Work Phone: 05-27-2011 10:39-0400 Body Temperature 97.3 [degF] Izzy Marshall RN [facility] Work Phone: Comment on above: Method: Oral 05-27-2011 10:39-0400 Body weight 79.49 kg Izzy Marshall RN [facility] Work Phone: 05-27-2011 10:39-0400 BP Diastolic 92 mm[Hg] Izzy Marshall RN [facility] Medicine Work Phone: Comment on above: Patient Position: Si tting; Cuff Location: Left Arm; Cuff Size: Large 05-27-2011 10:39-0400 BP Systolic 142 mm[Hg] Izzy Marshall RN [facility] Work Phone: Comment on above: Patient Position: Si tting; Cuff Location: Left Arm; Cuff Size: Large 05-27-2011 10:39-0400 BSA (Body Surface Area) 2.01 m2 Izzy Marshall RN [facility] Work Phone: 05-27-2011 10:39-0400 Height 182.88 cm Izzy Marshall RN [facility] Work Phone: 05-27-2011 10:39-0400 Pulse (Heart Rate) 80 /min Izzy Marshall RN [facility] Work Phone: Comment on above: Pattern: Regular 05-27-2011 10:39-0400 Respiratory Rate 20 /min Izzy Marshall RN [facility] Work Phone: Comment on above: Pattern: Unlabored 05-27-2011 10:39-0400 Weight 79.49 kg Marci Rose [facility] Work Phone: 01-27-2010 17:08-0500 BMI (Body Mass Index) 22.38 kg/m2 Izzy Marshall RN [facility] Work Phone: 01-27-2010 17:08-0500 Body weight 74.84 kg Izzy Marshall RN [facility] Work Phone: 01-27-2010 17:08-0500 BP Diastolic 80 mm[Hg] Izzy Marshall RN [facility] Work Phone: Comment on above: Patient Position: Si tting; Cuff Location: Left Arm; Cuff Size: Large 01-27-2010 17:08-0500 BP Systolic 122 mm[Hg] Izzy Marshall RN [facility] Work Phone: Comment on above: Patient Position: Si tting; Cuff Location: Left Arm; Cuff Size: Large 01-27-2010 17:08-0500 BSA (Body Surface Area) 1.96 m2 Izzy Marshall RN [facility] Work Phone: 01-27-2010 17:08-0500 Height 182.88 cm Izzy Marshall RN [facility] Work Phone: 01-27-2010 17:08-0500 Pulse (Heart Rate) 80 /min Izzy Marshall RN [facility] Work Phone: Comment on above: Pattern: Regular 01-27-2010 17:08-0500 Respiratory Rate 20 /min Izzy Marshall RN [facility] Work Phone: Comment on above: Pattern: Unlabored 01-27-2010 17:08-0500 Weight 74.84 kg Marci Rose [facility] Work Phone: 01-20-2010 08:31-0500 BMI (Body Mass Index) 22.38 kg/m2 Izzy Marshall RN [facility] Work Phone: 01-20-2010 08:31-0500 Body weight 74.84 kg Izzy Marshall RN [facility] Work Phone: 01-20-2010 08:31-0500 BP Diastolic 72 mm[Hg] Izzy Marshall RN [facility] Work Phone: Comment on above: Patient Position: Si tting; Cuff Location: Left Arm; Cuff Size: Large 01-20-2010 08:31-0500 BP Systolic 118 mm[Hg] Izzy Marshall RN [facility] Work Phone: Comment on above: Patient Position: Si tting; Cuff Location: Left Arm; Cuff Size: Large 01-20-2010 08:31-0500 BSA (Body Surface Area) 1.96 m2 Izzy Marshall RN [facility] Work Phone: 01-20-2010 08:31-0500 Height 182.88 cm Izzy Marshall RN [facility] Work Phone: 01-20-2010 08:31-0500 Pulse (Heart Rate) 80 /min Izzy Marshall RN [facility] Work Phone: Comment on above: Pattern: Regular 01-20-2010 08:31-0500 Respiratory Rate 20 /min Izzy aMrshall RN [facility] Work Phone: Comment on above: Pattern: Unlabored 01-20-2010 08:31-0500 Weight 74.84 kg Marci Rose [facility] Work Phone: 01-16-2010 08:34-0500 BMI (Body Mass Index) 22.38 kg/m2 Izzy Marshall RN [facility] Work Phone: 01-16-2010 08:34-0500 Body weight 74.84 kg Izzy Marshall RN [facility] Work Phone: 01-16-2010 08:34-0500 BP Diastolic 82 mm[Hg] Izzy Masrhall RN [facility] Work Phone: Comment on above: Patient Position: Si tting; Cuff Location: Left Arm; Cuff Size: Large 01-16-2010 08:34-0500 BP Systolic 118 mm[Hg] Izzy Marshall RN [facility] Work Phone: Comment on above: Patient Position: Si tting; Cuff Location: Left Arm; Cuff Size: Large 01-16-2010 08:34-0500 BSA (Body Surface Area) 1.96 m2 Izzy Marshall RN [facility] Work Phone: 01-16-2010 08:34-0500 Height 182.88 cm Izzy Marshall RN [facility] Work Phone: 01-16-2010 08:34-0500 Pulse (Heart Rate) 72 /min Izzy Marshall RN [facility] Work Phone: Comment on above: Pattern: Regular 01-16-2010 08:34-0500 Respiratory Rate 20 /min Izzy Marshall RN [facility] Work Phone: Comment on above: Pattern: Unlabored 01-16-2010 08:34-0500 Weight 74.84 kg Marci Rose [facility] Work Phone: 12-25-2009 12:50-0400 BMI (Body Mass Index) 22.38 kg/m2 Izzy Marshall RN [facility] Work Phone: 12-25-2009 12:50-0400 Body Temperature 98.9 [degF] Izzy Marshall RN [facility] Work Phone: Comment on above: Method: Oral 12-25-2009 12:50-0400 Body weight 74.84 kg Izzy Marshall RN [facility] Work Phone: 12-25-2009 12:50-0400 BP Diastolic 60 mm[Hg] Izzy Marshall RN [facility] Work Phone: Comment on above: Patient Position: Si tting; Cuff Location: Left Arm; Cuff Size: Standard 12-25-2009 12:50-0400 BP Systolic 122 mm[Hg] Izzy Marshall RN [facility] Work Phone: Comment on above: Patient Position: Si tting; Cuff Location: Left Arm; Cuff Size: Standard 12-25-2009 12:50-0400 BSA (Body Surface Area) 1.96 m2 Izzy Marshall RN [facility] Work Phone: 12-25-2009 12:50-0400 Height 182.88 cm Izzy Marshall RN [facility] Work Phone: 12-25-2009 12:50-0400 Pulse (Heart Rate) 60 /min Izzy Marshall RN [facility] Work Phone: Comment on above: Pattern: Regular 12-25-2009 12:50-0400 Respiratory Rate 20 /min Izzy Marshall RN [facility] Work Phone: Comment on above: Pattern: Unlabored 12-25-2009 12:50-0400 Weight 74.84 kg Marci Rose [facility] Work Phone: 12-16-2009 12:25-0400 BMI (Body Mass Index) 22.38 kg/m2 Evi Lima RN [facility] Work Phone: 12-16-2009 12:25-0400 Body Temperature 97.3 [degF] Evi Lima RN [facility] Work Phone: Comment on above: Method: Oral 12-16-2009 12:25-0400 Body weight 74.84 kg Evi Lima RN [facility] Work Phone: 12-16-2009 12:25-0400 BP Diastolic 76 mm[Hg] Evi Lima RN [facility] Work Phone: Comment on above: Patient Position: Si tting; Cuff Location: Left Arm; Cuff Size: Standard 12-16-2009 12:25-0400 BP Systolic 120 mm[Hg] Evi Lima RN [facility] Work Phone: Comment on above: Patient Position: Si tting; Cuff Location: Left Arm; Cuff Size: Standard 12-16-2009 12:25-0400 BSA (Body Surface Area) 1.96 m2 Evi Lima RN [facility] Work Phone: 12-16-2009 12:25-0400 Height 182.88 cm Evi Lima RN [facility] Work Phone: 12-16-2009 12:25-0400 Pulse (Heart Rate) 68 /min Evi Lima RN [facility] Work Phone: Comment on above: Pattern: Regular 12-16-2009 12:25-0400 Respiratory Rate 20 /min Evi Lima RN [facility] Work Phone: Comment on above: Pattern: Unlabored 12-16-2009 12:25-0400 Weight 74.84 kg Marci Rose [facility] Work Phone: 06-06-2009 12:41-0400 Body Temperature 98.5 [degF] Izzy Marshall RN [facility] Work Phone: Comment on above: Method: Oral 06-06-2009 12:41-0400 BP Diastolic 78 mm[Hg] Izzy Marshall RN [facility] Work Phone: Comment on above: Patient Position: Si tting; Cuff Location: Left Arm; Cuff Size: Large 06-06-2009 12:41-0400 BP Systolic 124 mm[Hg] Izzy Marshall RN [facility] Work Phone: Comment on above: Patient Position: Si tting; Cuff Location: Left Arm; Cuff Size: Large 06-06-2009 12:41-0400 Pulse (Heart Rate) 72 /min Izzy Marshall RN [facility] Work Phone: Comment on above: Pattern: Regular 06-06-2009 12:41-0400 Respiratory Rate 20 /min Izzy Marshall RN [facility] Work Phone: Comment on above: Pattern: Unlabored NEGATED: Highlighted [id number] 11:02-0400 BMI (Body Mass Index) 22.19 kg/m2 Nathalia Varelaer AT [facility] Work Phone: NEGATED: Highlighted [id number] 11:02-0400 Body weight 73.94 kg Nathalia Miles AT [facility] Work Phone: NEGATED: Highlighted [id number] 11:02-0400 Body weight 74 kg Nathlaia Miles AT [facility] Work Phone: NEGATED: Highlighted [id number] 11:02-0400 BP Diastolic 87 mm[Hg] Nathalia Miles AT [facility] Work Phone: NEGATED: Highlighted [id number] 11:02-0400 BP Systolic 136 mm[Hg] Nathalia Miles AT [facility] Work Phone: NEGATED: Highlighted [id number] 11:02-0400 Height 182.88 cm Nathalia Miles AT [facility] Work Phone: NEGATED: Highlighted [id number] 11:02-0400 Height 183 cm Nathalia Miles AT [facility] Work Phone: NEGATED: Highlighted [id number] 11:02-0400 Pulse (Heart Rate) 68 /min Nathalia Miles AT [facility] Work Phone: Encounters Encounter Date Encounter Type Care Provider Facility Start: 09-05-2024 End: 09-05-2024 Emergency department patient visit Dr. Marci Rose DO Work Phone: -Emergency Department Work Phone: Start: 06-01-2024 Non-patient / Non-visit Dr. Demetrius Hurt DO -[facility] Start: 06-01-2024 End: 06-01-[address] Marci Rose DO Work Phone: [facility] Work Phone: Start: 06-01-2024 End: 06-01-[address] Marci Rose DO -Pulmonary Services/Neurology Work Phone: Start: 06-01-2024 End: 06-01-2024 ambulatory Marci Rose Facility:[facility] Start: 05-17-2024 End: 05-17-[address] Valentin Gonzalez MD -[facility] Start: 05-17-2024 End: 05-17-2024 ambulatory Marci Rose Facility:[facility] Start: 05-06-2024 Non-patient / Non-visit Dr. Aime Sierra DO [facility] Work Phone: Start: 05-05-2024 Non-patient / Non-visit Dr. Aime Sierra [facility] Work Phone: Start: 05-04-2024 Non-patient / Non-visit Dr. Aime Sierra [facility] Work Phone: Start: 2024 Non-patient / Non-visit Dr. Sha Wilson [facility] Work Phone: Start: 2024 ambulatory Marci Rose Facilit y:[facility] Start: 2024 End: 05-06-2024 Evaluation and management of inpatient Dr. Aime Sierra DO -Progressive Care Unit Work Phone: Start: 03-15-2024 ambulatory Marci Rose Facilit y:[facility] Start: 03-15-2024 Non-patient / Non-visit Dr. Angi Jones MD -[facility] Start: 03-15-2024 End: 03-15-[address] Marci Rose DO -Cardiovascular Services Work Phone: Start: 03-15-2024 End: 03-15-2024 ambulatory Marci Rose Facility:[facility] Start: 03-07-2024 ambulatory Marci Rose Facilit y:[facility] Start: 03-03-2024 End: 03-03-[address] Marci Rose DO -Cat Scan, [facility] Work Phone: Start: 03-03-2024 End: 03-03-2024 ambulatory Marci Rose Facility:[facility] Start: 03-02-2024 End: 03-02-[address] Marci Rose DO -Laboratory, [facility] Start: 03-02-2024 End: 03-02-2024 ambulatory Marci Rose Facility:[facility] Start: 02-16-2024 End: 02-16-2024 Emergency department patient visit Dr. Yevgeniy Andrew MD -Emergency Department Work Phone: Start: 11-25-2022 End: 11-25-[address] Marci Rose Work Phone: [facility]-Physical Therapy Work Phone: Start: 11-24-2022 Non-patient / Non-visit Dr. Marci Rose Work Phone: [facility] Start: 11-24-2022 End: 11-24-[address] Marci Rose Work Phone: [facility] Work Phone: Start: 11-24-2022 End: 11-24-[address] Marci Rose Work Phone: [facility]-Cardiovascular Services Work Phone: Start: 11-17-2022 Marci yang DO Work Phone: [facility] Start: 11-13-2022 End: 11-13-2022 Marci Rose DO Work Phone: [facility] Start: 11-12-2022 Marci Fearo n DO Work Phone: [facility] Start: 11-12-2022 End: 11-13-2022 Patient encounter procedure Marci Rose DO Work Phone: [facility]; [facility] Work Phone: Start: 11-04-2022 End: 11-04-[address] Marci Rose Work Phone: [facility] Start: 10-30-2022 End: 10-30-2022 Marci Rose DO Work Phone: [facility] Start: 10-07-2022 End: 10-07-2022 Marci Rose DO Work Phone: [facility] Start: 09-10-2022 End: 09-10-2022 Office outpatient visit 10 minutes Marci Rose DO Work Phone: [facility] Start: 06-15-2022 End: 06-15-2022 Marci Rose DO Work Phone: [facility] Start: 05-11-2022 ambulatory Marci Rose DO [facility] Start: 05-11-2022 End: 05-11-2022 Office outpatient visit 25 minutes Marci Rose DO Work Phone: [facility] Start: 04-20-2022 End: 04-20-2022 Office outpatient visit 10 minutes Marci Rose DO Work Phone: [facility] Start: 04-20-2022 Marci Fearo n DO Work Phone: [facility] Start: 03-11-2022 Non-patient / Non-visit Dr. Marci Rose Work Phone: [facility] Start: 03-10-2022 End: 03-12-2022 Evaluation and management of inpatient [facility]-Progressive Care Unit Start: 01-12-2022 End: 01-13-2022 Office outpatient visit 5 minutes Marci Rose DO Work Phone: [facility] Start: 10-27-2021 End: 10-27-2021 Patient encounter procedure Martina Lindquist CMA [facility]; [facility] Work Phone: Start: 10-27-2021 End: 10-27-2021 Periodic preventive med est patient 65yrs& older Marci Rose DO Work Phone: [facility] Start: 08-18-2021 End: 08-18-2021 Office outpatient visit 25 minutes Marci Rose DO Work Phone: [facility] Start: 04-18-2021 End: 04-18-2021 Office outpatient visit 15 minutes Marci Rose DO Work Phone: [facility] Start: 02-26-2021 End: 02-26-2021 Office outpatient visit 15 minutes Marci Rose DO Work Phone: [facility] Start: 02-07-2021 End: 02-07-2021 Marci Rose DO Work Phone: [facility] Start: 01-15-2021 End: 01-15-2021 Office outpatient visit 15 minutes Marci Rose DO Work Phone: [facility] Start: 10-24-2020 End: 10-24-2020 Patient encounter procedure Marci Rose DO Work Phone: [facility] Start: 10-24-2020 End: 10-24-2020 Periodic preventive med est patient 65yrs& older Marci Rose DO Work Phone: [facility] Start: 10-16-2020 End: 10-16-2020 Office outpatient visit 25 minutes Marci Rose DO Work Phone: [facility] Start: 10-10-2020 End: 10-10-2020 Marci Rose DO Work Phone: [facility] Start: 03-06-2020 End: 03-06-2020 Office outpatient visit 40 minutes Marci Rose [facility] Start: 03-06-2020 Review Marci Rose [facility] Start: 03-04-2020 End: 03-04-2020 Office outpatient visit 10 minutes Marci Rose [facility] Start: 03-04-2020 Review Marci Rose [facility] Start: 02-19-2020 End: 02-19-2020 Office outpatient visit 15 minutes Marci Rose [facility] Start: 02-14-2020 End: 02-14-2020 Phone Encounter Macri Rose [facility] Start: 02-14-2020 End: 02-14-2020 Marci Rose DO Work Phone: [facility] Start: 08-18-2019 End: 08-18-2019 Office outpatient visit 25 minutes Marci Rose [facility] Start: 02-09-2019 End: 02-09-2019 Office outpatient visit 25 minutes Marci Rose [facility] Start: 11-03-2018 End: 11-17-2018 Patient encounter procedure Mayank Ball DO Work Phone: [facility] Work Phone: Start: 10-19-2018 End: 10-19-2018 Office outpatient visit 15 minutes Marci Rose [facility] Start: 10-17-2018 End: 10-17-2018 Phone Encounter Marci Rose [facility] Start: 10-17-2018 End: 10-17-2018 Marciaiden Rose DO Work Phone: [facility] Start: 10-12-2018 End: 10-12-2018 Phone Encounter Marci Rose [facility] Start: 10-12-2018 End: 10-12-2018 Marciadolph Rose DO Work Phone: [facility] Start: 10-10-2018 End: 10-10-2018 Patient encounter procedure Martina Lindquist CMA [facility]; [facility] Work Phone: Start: 10-10-2018 End: 10-10-2018 Periodic preventive med est patient 65yrs& older Marci Rose [facility] Start: 08-10-2018 End: 08-10-2018 Office outpatient visit 25 minutes Marci Rose [facility] Start: 08-03-2018 End: 08-03-2018 Phone Encounter Marci Rose [facility] Start: 08-03-2018 End: 08-03-2018 Marci Rose DO Work Phone: [facility] Start: 02-07-2018 End: 02-07-2018 Office outpatient visit 25 minutes Marci Rose [facility] Start: 10-06-2017 End: 10-06-2017 Office outpatient visit 15 minutes Marci Rose [facility] Start: 06-03-2017 End: 06-03-2017 Patient encounter procedure Marci Rose DO Work Phone: [facility] Start: 06-03-2017 End: 06-03-2017 Periodic preventive med est patient 65yrs& older Marci Rose [facility] Start: 02-24-2017 End: 02-24-2017 Office outpatient visit 15 minutes Marci Rose [facility] Start: 02-19-2017 End: 02-19-2017 Lab Order Marci Rose [facility] Start: 02-19-2017 End: 02-19-2017 Marci Rose DO Work Phone: [facility] Start: 10-21-2016 End: 10-21-2016 Office outpatient visit 15 minutes Marci Rose [facility] Start: 07-21-2016 End: 07-21-2016 Office outpatient visit 25 minutes Marci Rose [facility] Start: 12-23-2015 End: 12-24-2015 Office outpatient visit 15 minutes Marci Rose [facility] Start: 12-05-2015 End: 12-05-2015 Patient encounter procedure Marci Rose [facility] Start: 12-05-2015 End: 12-05-2015 Marci Rose DO Work Phone: [facility] Start: 10-03-2015 End: 10-03-2015 Patient encounter procedure Marci Rose DO Work Phone: [facility] Start: 10-03-2015 End: 10-03-2015 Periodic preventive med est patient 65yrs& older Marci Rose [facility] Start: 09-05-2015 End: 09-05-2015 Office outpatient visit 25 minutes Marci Rose [facility] Start: 06-05-2015 End: 06-05-2015 Office outpatient visit 25 minutes Marci Rose [facility] Start: 03-06-2015 End: 03-06-2015 Office outpatient visit 15 minutes Marci Rose [facility] Start: 11-27-2014 End: 11-27-2014 Office outpatient visit 15 minutes Marci Rose [facility] Start: 07-20-2014 End: 07-20-2014 Office outpatient visit 25 minutes Marci Rose [facility] Start: 04-06-2014 End: 04-06-2014 Office outpatient visit 25 minutes Marci Rose [facility] Start: 04-06-2014 End: 04-06-2014 Patient encounter procedure Marci Rose DO Work Phone: [facility] Start: 03-23-2014 End: 03-26-2014 Office outpatient visit 25 minutes Marci Rose [facility] Start: 06-22-2012 End: 06-22-2012 Annotation/Addendum Marci Rose [facility] Start: 06-22-2012 End: 06-22-2012 Marci Rose DO Work Phone: [facility] Start: 05-19-2012 End: 05-19-2012 Annotation/Addendum Marci Rose [facility] Start: 05-19-2012 End: 05-19-2012 Marci Rose DO Work Phone: [facility] Start: 06-10-2011 End: 06-10-2011 Patient encounter procedure Marci Rose [facility] Start: 06-10-2011 End: 06-10-2011 Marci Rose DO Work Phone: [facility] Start: 05-27-2011 End: 05-27-2011 Patient encounter procedure Marci Rose [facility] Start: 05-27-2011 End: 05-27-2011 Marci Rose DO Work Phone: [facility] Start: 01-27-2010 End: 01-27-2010 Patient encounter procedure Marci Rose [facility] Start: 01-27-2010 End: 01-27-2010 Marci Rose DO Work Phone: [facility] Start: 01-20-2010 End: 01-20-2010 Patient encounter procedure Marci Rose [facility] Start: 01-20-2010 End: 01-20-2010 Marci Rose DO Work Phone: [facility] Start: 01-16-2010 End: 01-16-2010 Patient encounter procedure Marci Rose [facility] Start: 01-16-2010 End: 01-16-2010 Marci Rose DO Work Phone: [facility] Start: 12-25-2009 End: 12-25-2009 Patient encounter procedure Marci Rose [facility] Start: 12-25-2009 End: 12-25-2009 Marci Rose DO Work Phone: [facility] Start: 12-16-2009 End: 12-16-2009 Patient encounter procedure Marci Rose [facility] Start: 12-16-2009 End: 12-16-2009 Marci Rose DO Work Phone: [facility] Start: 06-06-2009 End: 06-06-2009 Patient encounter procedure Marci Rose [facility] Start: 06-06-2009 End: 06-06-2009 Marci Rose DO Work Phone: [facility] Patient encounter procedure Kaylene Cuellar [facility] Work Phone: Patient encounter procedure Kitty James [facility] Work Phone: Patient encounter procedure Angie Mclain [facility]; [facility] Work Phone: Patient encounter procedure Martina Lindquist [facility] Work Phone: Patient encounter procedure Cirilo Naik [facility]; [facility] Work Phone: Patient encounter procedure Cirilo Naik [facility]; [facility] Work Phone: Patient encounter procedure Danyellheather Heena [facility]; [facility] Work Phone: Procedures Date Procedure Procedure Detail Performing Clinician Start: 09-05-2024 X-ray of chest, PA a nd lateral views Dr. Marci Rose DO Work Phone: Start: 05-17-2024 X-ray of chest, PA a nd lateral views Dr. Marci Rose DO Work Phone: Start: 2024 Complete ultrasound of kidneys and bladder Dr. Marci Rose DO Work Phone: Start: [address] Petty Rose DO Work Phone: Start: 2024 SARS-CoV-2, Influenz a & RSV (PCR) Dr. Marci Rose DO Work Phone: Start: [address] Petty Rose DO Work Phone: Start: 2024 Plain chest X-ray Dr. Martin Rose DO Work Phone: Start: 03-03-2024 CT angiography of ch est with contrast Dr. Marci Rose DO Work Phone: Start: 02-16-2024 X-ray of chest, PA a nd lateral views Dr. Marci Rose DO Work Phone: Start: 11-25-2022 End: 11-25-2022 Procedure Note: See Note; NOTES: [facility]. [address] [place] [address] / REHABILITATION SERVICES DISCHARGE SUMMARY MR#: [id number] Acct: [id number] Name: SIERRA GARCÍA Rep #: [id number] : 1945 77 From: Sha Alegria DPT, OCS, CSCS Referring DrMyla: Dr. Marci Rose DO Status: REG RCR Insurance: MEDICARE PART A B [employer] [place] [employer] Discharge Summary D/C summary: It has been my pleasure to treat SIERRA GARCÍA referred by Dr. Marci Rose DO, with the diagnosis of abnormal gait for a total of 9 visit(s). Discharge Date: Please see the following information for a summary of their discharge status. Subjective Subjective: Getting better. Exercises in clinic are very helpful. Balance exercises are especially helpful. But has 1.5 hrs of exercise with the rest of regimen. Feels like gait with cane is right now. Thinks he can continue at home from this point. Does home exercises daily to every other day. Pain legs and LB: Pain Intensity (Out of 10): Unrated Overall Improvement % Improvement: 75 Objective Objective/Function: Walking with cane with fair FW weight shift, good step length about 2 inches past other foot. Can walk without cane I today also. Corrected cane patti with VC immediately and feels ready to do these exercises on his own at home. Goals Goal 1:: I appropr HEP for posture, general LE and core strength, DLS and pelvic ROM to HEP to manage problem Goal Progress: Goal Met Goal 2:: Pt feel 505 better in balance and ability to get around Goal Progress: Goal Met Goal 3:: LEFS 45 Goal 4:: Walk with appropriate step length adn FW weight shift I without VC Plan Plan: d/c to HEP D/C Information d/c sentence: If there are questions or concerns regarding this patient's physical therapy, please feel free to call me at [phone]. Thank you for the referral of this patient. Sincerely, Sha Alegria DPT, OCS, CSCS Balance/Gait/Functional tests Balance/Special Test Scores Functional Gait Assessment Score: 26 % Disability: 13.3400 CATSIB Score (Max score 120 seconds): 120 Lower Extremity Functional Score: 47 Improvement % Improvement: 75 <Electronically signed by Sha Alegria DPT, OCS, CSCS> 11/25/22 1347 CC: Dr. Marci Rose, DO EB Signed Marci Rose DO Work Phone: Start: 11-24-2022 End: 11-24-2022 Procedure Note: See Note; NOTES: [facility] Cardiovascular Services [address] [place] [address] Carotid Duplex Ultrasound 11/24/22 0850 MR#: [id number] Acct: [id number] Name: SIERRA GARCÍA Rep #: [id number] : 1945 77 From: Sha Baumann MD Attending Dr: Dr. Marci Rose DO Status: R EG CLI Ordering Dr: Marci Rose DO Date: 11/24/22 Location: [facility] Sex: M C Admitted: Reason For Study: occlusion and stenosis of unspecified carotid artery Rt. Velocities/BP Lt. Velocities/BP Prox CCA 72.1/15.4 cm/sec. Prox CCA 90.5/16.8 cm/sec. Mid CCA 96.0/20.1 cm/sec. Mid CCA 85.0/22.3 cm/sec. Dist CCA 85.0/16.8 cm/sec. Dist CCA 67.4/17.9 cm/sec. Prox ICA 55.3/13.5 cm/sec. Prox ICA 46.5/12.4 cm/sec. Mid ICA 65.2/25.6 cm/sec. Mid ICA 74.0/24.5 cm/sec. Dist ICA 56.4/19.0 cm/sec. Dist ICA 64.1/21.2 cm/sec. Rt. ICA/CCA = .7. Lt. ICA/CCA = .9. Prox ECA 67.4/12.4 cm/sec. Prox ECA 89.4/12.4 cm/sec. Rt. Vert. 31.5/7.8 cm/sec. Lt. Vert. 57.5/19.0 cm/sec. Right Extracranial There is heterogeneous, smooth atherosclerotic plaque noted in the right common carotid artery. There is homogeneous, smooth atherosclerotic plaque noted in the right internal carotid artery. There is intimal thickening but no significant atherosclerotic plaque noted in the right external carotid artery. Antegrade flow is noted in the right vertebral artery. Left Extracranial There is homogeneous, smooth atherosclerotic plaque noted in the left common carotid artery. There is heterogeneous, irregular atherosclerotic plaque noted in the left internal carotid artery. There is homogeneous, smooth atherosclerotic plaque noted in the left external carotid artery. Antegrade flow is noted in the left vertebral artery. Procedure Carotid Duplex 95556. This is a Carotid Duplex examination using B-mode, color flow and specral Doppler. The exam was diagnostic. Exam performed in department. VL/Carotid Duplex Ultrasound Interpretation Summary Mild (<50%) stenosis right extracranial internal carotid. Mild (<50%) stenosis left extracranial internal carotid. Patent and antegrade vertebrals bilaterally. Ordering Physician: Marci Rose Performed By: Jurgen Kim, RVT 11/24/22 1333 Date Sha Baumann MD CC: Dr. Marci Rose, Date Dictated: 11/24/22 0850 Date Transcribed: 11/24/221332 Adjustment Clerk: Signed Marci Rose DO Work Phone: Start: 11-04-2022 X-ray of cervical spine Dr. Marci Rose Work Phone: Start: 11-04-2022 End: 11-05-2022 Procedure Note: See Note; NOTES: [facility] Radiology [address] [place] [address] Cerv Spine Obl/Flex/Ext Comp MR#: [id number] Acct: [id number] Name: RAQUELMAURASIERRA H Rep #: [id number] : 1945 M 77 From: Katie Curtis MD PCP: Dr. Marci Rose, DO Status: DEP AMB Study: Cerv Spine Obl/Flex/Ext Comp Date of Exam: Exam# [id number] Ordering Dr: Myesha Oliveira MANAGER SUPPLIER-C EXAM: XR CERVICAL SPINE, 6 OR MORE VIEWS CLINICAL INDICATION: PAIN TECHNIQUE: 8 total views. COMPARISON: No relevant prior studies available. FINDINGS: VERTEBRAE: There is mild straightening of the usual lordotic curvature on the lateral view. There is mild increased straightening of the usual lordotic curvature on lateral view labeled flexion and no appreciable change from the neutral exam on exam labeled extension. Apparently limited motion. Preserved vertebral body height. No acute fracture. No spondylolisthesis. No significant facet arthropathy. DISC SPACES: Moderate disc space narrowing at C5-6 and C6-7 and mild anterior and posterior osteophytes at these levels. SOFT TISSUES: Unremarkable. No prevertebral soft tissue widening. VASCULATURE: Mild cervical carotid calcifications. LUNG APICES: Clear. OTHER FINDINGS: The bones appear at least mildly demineralized. RAD/Cerv Spine Obl/Flex/Ext Comp IMPRESSION: Multilevel degenerative changes. Mild straightening of the usual lordotic curvature on the neutral view. Limited motion, especially limited motion on extension. No subluxation or other evidence of instability with motion. Electronically Signed: Katie Curtis MD at 1:27 EDT , CC: MICHI Oliveira; Dr. Marci Rose DO Adjustment Clerk: Signed Marci Rose DO Work Phone: Start: 11-04-2022 End: 11-04-2022 Procedure Note: See Note; NOTES: [facility] [address] [place] [address]. [address] [place] [address] / REHABILITATION SERVICES INITIAL EVALUATION MR#: [id number] Acct: [id number] Name: SIERRA GARCÍA Rep #: [id number] : 1945 77 From: Sha Alegria DPT, [place], CSCS Referring DrMyla: Dr. Marci Rose DO Status: REG RCR Insurance: MEDICARE PART A B [place] [employer] Patient's Visit Information Visit Information Visit Information: SIERRA GARCÍA is a 77 year old M referred to Physical Therapy by Dr. Marci Rose DO with a diagnosis of abnormal gait. Date of Evaluation: 11/04/22 Physical Therapist: Sha Alegria DPT, [place], CSCS Visit Plan Frequency: 3x /Week Duration: 4-6 Weeks Plan: 3x/week for 3-6 weeks as needed. 1. Please teach DLS mat, general LE and postural standing exercises and weight shifting ex and give pics as able for HEP. 2. Lumbar flexion ex 3. Gait to train in longer steps for balance safety. consider balance test when gait improved. given today trunk rotation and pelvic tilt post 10x each 2x/day and educate on longer steps even if needs to use cane, also to continue HS stretch, SKC, DKC he is already doing at home Subjective Subjective: Sees Tony for spinal stenosis. May be cervical stenosis. has chronic pain in spine. Feels like he is losing balance at times. has had this 3 yrs. Does exercise for back stretches and not strengthening, they help. Leg pain has been intermittent and not worsening, feels more like stiffness. Back can feel weak. Has seen [facility] spine doctor and does not want to do surgery on him, asked him to walk. Balance is now effected. Had one fall at a [employer] game losing balance. No spinning on a typical basis. Maybe one time a week. Has no nknown neuropathy. Cannot jog anymore. Legs feel generally weak. Basic ADLs are getting done. uncomfortable to clean at times in legs and back. Legs worse on feet, no pain when sitting. Hobbies include amateur radio, [employer] motorcycles, hard to get up and down. Retired [employer]. Pain legs and LB: Pain Intensity (Out of 10): 0 Pain Intensity Range: 0 and 3 Comment: stiffness Objective Objective: Short steps with walking and slightly neuropathic gait but I. Transfers stiff from chair and bed but I. Steps reciprocal with one rail with only slight weight shift. Good balance but weight shift is inconfident and avoids big steps. coordination to reciprocal toe tap is fair reflexes 2/3 patella and achilles sensation LE WNL to hermila slight touch but proprioception looks to be effected functionally. Strength ankles 4-, knees 4- and hips 3+ abd and ext and flexion, core strength abs and ext 3/5 - slump, - SLR. HS adn quad mod tight. Very poor pelvic motion ant and post. Balance/Special Test Scores Functional Gait Assessment Score: 26 % Disability: 13.3400 CATSIB Score (Max score 120 seconds): 120 Lower Extremity Functional Score: 31 Goals Goal 1:: I appropr HEP for posture, general LE and core strength, DLS and pelvic ROM to HEP to manage problem Goal Time Frame: 4-6 Weeks Goal 2:: Pt feel 505 better in balance and ability to get around Goal Time Frame: 4-6 Weeks Goal 3:: LEFS 45 Goal Time Frame: 4-6 Weeks Goal 4:: Walk with appropriate step length adn FW weight shift I without VC Goal Time Frame: 4-6 Weeks Rehabilitation Potential Physical Therapy Diagnosis: pt avoiding weight shift effecting gait likely due to LB causing neuropathy. Rehabilitation Potential: Fair Anticipated Interventions Patient/Client Instruction: Educate patient on: Condition and Plan of Care For the Purpose of:: To decrease pain, To increase ROM, To improve nutrient delivery to tissue, To improve muscle performance and motor function, To increase tolerance to activity/condition/positio n and To improve ability of physical actions for home/community/work/leisur e Therapeutic Exercise to Include: Strength training, Postural training, Flexibilty training, Gait and locomotor training, Passive ROM, Active ROM and Dynamic Lumbar Stabilization For the Purpose of:: To increase ROM, To improve nutrient delivery to tissue, To improve muscle performance and motor function, To increase tolerance to activity/condition/positio n, To improve ability of physical actions for home/community/work/leisur e and To improve gait and locomotor functions Manual Therapy Techniques to Include: Mobilization and Passive ROM For the Purpose of:: To increase ROM Text: Thank you for the opportunity to evaluate your patient. For Medicare and Medicare HMO plans, please review the plan of care and approve it. It will need to be FAXED BACK to us at [phone] for Medicare purposes. For Medicare only, by signing this I certify the plan of care. Please let me know if there are questions or concerns regarding this plan of care. Physician Signature: Date: <Electronically signed by Sha Alegria DPT, OCS, CSCS> 11/04/22 1419 CC: Dr. Marci Rose DO EBG Signed Marci Rose DO Work Phone: Start: 03-10-2022 Plain chest X-ray Start: 03-10-2022 End: 03-10-2022 Procedure Note: See Note; NOTES: [facility] Imaging Services [address] [place] [address] Chest PA and Lateral MR#: [id number] Acct: [id number] Name: SIERRA GARCÍA Rep #: [id number] : 1945 M 76 From: Lorenzo Berry MD PCP: Dr. Marci Rose DO Status: REG ER Study: Chest PA and Lateral Date of Exam: 03/10/22 Exam# [id number] Ordering Dr: Mikey Vang MD EXAM: XR CHEST, 2 VIEWS CLINICAL INDICATION: Cough, hypoxia, tachypnea TECHNIQUE: Frontal and lateral views of the chest. This report was created using [employer] report generation technology. COMPARISON: 02/06/2021 FINDINGS: LUNGS AND PLEURAL SPACES: Unremarkable. No consolidation or edema. No pneumothorax. No effusion. HEART: Unremarkable. Cardiac silhouette not enlarged. MEDIASTINUM: Central airways and mediastinal contour are unremarkable. BONES/JOINTS: Unremarkable. SOFT TISSUES: Unremarkable. RAD/Chest PA and Lateral IMPRESSION: No radiographic evidence of acute cardiopulmonary disease. Electronically Signed: Lorenzo Berry MD at 22:32 EST , CC: Dr. Marci Rose DO; Dr. Mikey Vang MD Adjustment Clerk: Signed aMrci Rose DO Work Phone: Start: 03-10-2022 End: 03-10-2022 Procedure Note: See Note; NOTES: [facility] Medical Records Department [address] [place] [address] Emergency Department Summary 03/10/22 MR#: [id number] Acct: [id number] Name: SIERRA GARCÍA Rep #: [id number] : 1945 76 From: Mikey Vang MD PCP: Dr. Marci Rose, DO Status:REG ER Location: ED HPI History of Present Illness Chief Complaint: Shortness of Breath Detail of Chief Complaint: Shortness of breath, congestion, nonproductive cough and dyspnea on exertio Informant: patient Onset/Context/Timing Onset: Yesterday Context: gradual Timing: Continuous and Waxes and wanes Quality: Positive for Dyspnea on exertion and Wheezing; Negative for Orthopnea or PND Current Severity: Mild Maximum Severity: Severe Worsened by: Exertion and Coughing; Not Worsened By Lying flat Relieved by: Nothing Associated Symptoms cough, rhinorrhea and sore throat; Negative for post nasal drip, ear pain, fever, subjective, chills, sweats, clear sputum, white sputum, yellow sputum or green sputum Chest Pain: Positive for None Narrative Narrative: Patient is a 76-year-old male with history of hypertension, hyperlipidemia, hypothyroidism and COVID-19 infection who states he has been vaccinated but did not receive most recent booster. He was vaccinated for the flu. He is unaware of any ill contacts. He denies fever, chills or night sweats. He denies headache, visual, ocular auditory symptoms. He does endorse congestion, sore throat and nonproductive cough. He is having difficulty walking across the room. He denies history of PE or DVT. He denies black or maroon-colored stool. He denies vomiting or diarrhea. He denies urologic symptoms. PE Risk Factors: Negative for Cancer, OCP + Smoking + > 35, Prior DVT or PE, Recent immobilization, Recent surgery or Recent travel Prior similar symptoms: No Recent Illness/Hospitalization: No PFSH PFS Medical History Arthritis Back pain HTN (hypertension) Hypothyroid Pneumonia Pneumonia, pneumococcal Home Medications levothyroxine 50 mcg tablet 50 mcg PO DAILY thyroid 10/11/18 [History Last Taken Unknown] lisinopril 10 mg-hydrochlorothiazide 12.5 mg tablet 5 - 6.25 mg PO DAILY blood pressure 10/11/18 [History Last Taken Unknown] paroxetine HCl 30 mg tablet 30 mg PO DAILY mental health 10/11/18 [History Last Taken Unknown] simvastatin 10 mg tablet 10 mg PO DAILY cholesterol 10/11/18 [History Last Taken Unknown] Allergy/AdvReac Type Severity Reaction Status Date / Time No Known Allergies Allergy Verified 03/10/22 20:52 Family History Mother Leo's hereditary optic atrophy Aunt Leo's hereditary optic atrophy Uncle Leo's hereditary optic atrophy Social History (Updated 03/10/22 @ 21:[address] Mikey Vang MD) household members: none Smoking Status: Never smoker substance use type: does not use ROS ROS ED Constitutional Constitutional ED: Denies chills, fever(s), sweats or weight loss Eyes Eyes: Denies blurry vision, change in vision or diplopia ENT ENT ED: Reports rhinorrhea and sore throat; Denies ear pain Cardiovascular Cardiovascular: Denies chest pain, orthopnea, palpitations, paroxysmal nocturnal dyspnea or racing heartbeat Respiratory/Chest Respiratory/Chest: Reports cough, dyspnea and dyspnea on exertion; Denies orthopnea, paroxysmal nocturnal dyspnea or sputum Gastrointestinal Gastrointestinal: Denies abdominal pain, diarrhea, melena, nausea or vomiting Genitourinary Genitourinary ED: Denies dysuria or hematuria Musculoskeletal Musculoskeletal: Denies arthralgias, back pain, myalgias or neck pain Integumentary Denies Abrasions or rash Neurologic Neurologic: Reports weakness; Denies headache(s) or paresthesias Endocrine Endocrinology: Denies polydipsia or polyuria Hematologic/Lymphatic Hematologic/Lymphatic: Denies easy bleeding or easy bruising EXAM Physical Exam Const Vital Signs: 03/10/22 20:50 03/10/22 21:16 03/10/22 21:16 Temperature 97.4 F L Temperature Source Temporal Pulse Rate 129 H 115 H Respiratory Rate 24 H 22 H Respiratory Effort Short of Breath Respiratory Depth Shallow Respiratory Pattern Irregular Blood Pressure 180/86 H Blood Pressure Mean 117 Pulse Ox 90 98 Oxygen Delivery Method Room Air Nasal Cannula Nasal Cannula Oxygen Flow Rate (L/min) 2 2 03/10/22 21:42 03/10/22 21:42 03/10/22 21:42 Temperature Temperature Source Pulse Rate 115 H Respiratory Rate 28 H Respiratory Effort Labored Respiratory Depth Normal Respiratory Pattern Tachypnea Normal Blood Pressure Blood Pressure Mean Pulse Ox 93 93 Oxygen Delivery Method Nasal Cannula Nasal Cannula Oxygen Flow Rate (L/min) 2 2 01/03/23 22:24 Temperature Temperature Source Pulse Rate 118 H Respiratory Rate 28 H Respiratory Effort Respiratory Depth Respiratory Pattern Tachypnea Blood Pressure Blood Pressure Mean Pulse Ox Oxygen Delivery Method Oxygen Flow Rate (L/min) Positive well nourished and well developed Constitutional Narrative: Patient has conversational dyspnea. He is only able to say 3-5 words before having to take a deep breath. He appears pale. General Appearance ED: well developed and pallor HEENT Reports dry mucous membranes HEENT Narrative: Head is atraumatic normocephalic. Ears normal. Nares patent. Uvula midline. No deviation of protrusion. No the posterior pharynx. Mouth ED: Yes dry mucous membranes Mouth: dry mucous membranes Eyes PERRL and EOMs intact bilaterally General Eye ED: Negative for pale conjunctiva or scleral icterus Neck no lymphadenopathy, supple, no meningeal signs and no JVD Resp No normal respiratory effort Auscultation: wheezes expiratory wheezes and throughout (High-pitched with increased expiratory phase.) Cardio regular rhythm, S1 normal heart sound, S2 normal heart sound and no murmurs Cardio Narrative: There is an occasional ectopic beat noted on the monitor, PA C Rate: tachycardic GI non-tender, non-distended and no masses Auscultation: hypoactive bowel sounds Palpation: soft Extremity Extremity Narrative: Patient's lower extremities are pale. He does have pitting edema. There is no asymmetry, discoloration, leg vein distention, palpable is on the distribution of deep venous system. General Extremety ED: Yes edema General Extremity: edema Neuro oriented x3, CN's II-XII intact bilaterally and no sensory deficits noted [place] Coma Scale: document GCS findings Spontaneous Obeys Commands Oriented 15 Sensorium / Orientation: alert Psych mental status grossly normal Skin no wounds and skin turgor normal General Skin Exam: pallor; Negative for jaundice Lesions: no lesions Rashes: no rashes MDM MDM MDM Narrative Medical decision making narrative: 1MPatient has respiratory distress with wheezing. Suspect he has either a viral or bacterial infectious process. List. His dyspnea may be due to anemia since he is pale. CBC was obtained to assess H H as well as white count differential. Basic metabolic panel was obtained to assess renal function CO2 anion gap. Chest x-ray to evaluate for pneumonia. Since he does have some upper respiratory symptoms rapid test for influenza and COVID were obtained. EKG was obtained to assess for cardiac ischemia. If his work-up is negative then 1 needs to consider pulmonary embolus. Patient was reassessed at 2238. He is still tachycardic and tachypneic. He still has conversational dyspnea. It has improved. There is bilateral wheezing. The wheezing is not as notable. Since he is still wheezing a fourth aerosol treatment was ordered and 125 mg of Solu- Medrol. He was informed of his laboratory results and chest x-ray results. He was informed that the COVID and influenza test are pending. COVID influenza were negative. Since there is no infiltrate patient was not treated with antibiotics. Lab Data Attestation: I reviewed the patient's lab results. Lab results narrative: CBC reveals slight elevation white count with shift. There is no bandemia. Comprehensive metabolic panel reveals slight elevation in BUN and creatinine. GFR is 57. Glucose is 109 with a normal CO2 and anion gap. There is no evidence of endorgan dysfunction. Labs: Laboratory Results - last 24 hr 03/10/22 03/10/22 21:37 21:37 WBC 12.1 H RBC 5.25 Hgb 15.0 Hct 46.1 MCV 87.8 MCH 28.6 MCHC 32.5 RDW Std Deviation 46.1 H RDW Coeff of Alan 14.3 Plt Count 170 MPV 10.2 Immature Gran % (Auto) 0.200 Neut % (Auto) 81.4 H Lymph % (Auto) 7.0 L Tompkins % (Auto) 9.7 Eos % (Auto) 1.2 Baso % (Auto) 0.5 Absolute Neuts (auto) 9.8 H Absolute Lymphs (auto) 0.84 Nucleated RBC % 0 Sodium 141 Potassium 4.2 Chloride 110 H Carbon Dioxide 24.0 Anion Gap 7 BUN 22 H Creatinine 1.30 Estim Creat Clear Calc 54.37 Est GFR (MDRD) Af Amer 69 Est GFR (MDRD) Non-Af 57 L BUN/Creatinine Ratio 16.9 Glucose 109 H Calcium 9.6 Total Bilirubin 0.40 AST 17 ALT 32 Alkaline Phosphatase 70 Total Protein 7.4 Albumin 3.8 Globulin 3.6 Albumin/Globulin Ratio 1.1 Radiography Chest X-Ray - ED: 2 View and Read by ED Physician (Independently reviewed and interpreted by me at 2216 as negative for any acute process. There is chronic pulmonary changes. Patient is rotated. Cardiac silhouette and size unremarkable. Osseous trucks unremarkable. Perihilar regions unremarkable.) Diagnostic Testing: Clinical Impression(s) from Imaging Studies Chest X-Ray 03/10/22 22:05 IMPRESSION: No radiographic evidence of acute cardiopulmonary disease. Electronically Signed: Lorenzo Berry MD at 22:32 EST , Rhythm Strip Rhythm Strip: Sinus Tach Rate: 122 Ectopy: PAC(s) EKG Initial EKG: Attestation: I personally reviewed and interpreted this EKG as follows: Interpretation: Sinus Tachycardia (Sinus tach with premature atrial complexes. Ventricular rate 120. MS interval 248 ms. QRS duration 88 ms. QT duration 336 ms. There is evidence of a left anterior fascicular block and axis to the left. There is no acute ischemic changes noted.) Discharge Plan Dx/Rx/DC Orders Clinical Impression: Acute respiratory failure with hypoxia, High blood pressure, Acute bronchospasm, Sinus tachycardia, Tachypnea Disposition Disposition: Acute Care Hospital [facility] What to do if you have Problems For any increased pain, shortness of breath, bleeding, nausea or vomiting, chest pain, or any unexpected problems, contact your Primary Care Provider. Call [facility] ([phone]) or report to the closest Emergency Room. Call 911 if necessary. 03/10/22 2064 <Electronically signed by Mikey Vang MD> Cosigner Signature (if applicable): CC: Dr. Marci Rose DO Signed Marci Rose DO Work Phone: Start: 07-29-2021 End: 07-29-2021 Comments: See Note; NOTES: [facility] Radiology [address] [place] [address] Ankle min 3 Views MR#: [id number] Acct: [id number] Name: SIERRA GARCÍA Rep #: [id number] : 1945 M 76 From: Krzysztof Brooke DO PCP: Dr. Marci Rose DO Status: DEP AMB Study: Ankle min 3 Views Date of Exam: 07/29/21 Exam# [id number] Ordering Dr: Tabitha Romeo DPM INDICATION: PAIN -- STANDING EXAMINATION/TECHNIQUE: X-RAY - RIGHT XR Ankle Min 3 Views 3 VIEWS COMPARISON: 06/10/2021. FINDINGS: SOFT TISSUES: Mild residual soft tissue swelling lateral ankle. No abnormal soft tissue calcifications. No radiopaque foreign body. BONES/JOINTS: Persistent, oblique fracture lucency through the distal fibula at the level of the tibial plafond. Persistent, transverse fracture through the distal medial malleolus. There is evidence of bony healing with some new bone formation visible. No malalignment. There are some mild degenerative changes tibiotalar joint. Note of a prominent posterior trigonal process. Subtalar articulations are within normal limits No sclerotic or destructive changes observed. There is a flatfoot deformity RAD/Ankle min 3 Views IMPRESSION: Healing distal fibular and medial malleoli or fractures. Mild degenerative changes tibiotalar joint. Flatfoot deformity. Electronically Signed: Krzysztof Brooke DO at 20:36 EDT , CC: ANSHU Romeo; Dr. Marci Rose DO Adjustment Clerk: Signed Marci Rose DO Work Phone: Start: 06-10-2021 End: 06-10-2021 Comments: See Note; NOTES: [facility] [address] [place] [address] Ankle min 3 Views MR#: [id number] Acct: [id number] Name: SIERRA GARCÍA Rep #: [id number] : 1945 M 76 From: Fazal Garcia MD PCP: Dr. Marci Rose DO Status: DEP AMB Study: Ankle min 3 Views Date of Exam: 06/10/21 Exam# [id number] Ordering Dr: Tabitha Romeo DPM STUDY: X-RAY - RIGHT ANKLE REASON FOR EXAM: Male, 76 years old. Ankle pain after fall. Follow-up of fractures. TECHNIQUE: 3 view(s) of the ankle. COMPARISON: 05/02/2021. FINDINGS: Stable osteopenia. Stable transverse fracture of the medial malleolus and oblique fracture of the distal fibula originating at the tibiotalar joint. Continued soft tissue swelling. RAD/Ankle min 3 Views IMPRESSION: Stable osteopenia with medial and lateral malleolar fractures and focal soft tissue swelling at the fracture sites No complicating features. Electronically Signed: Fazal Garcia MD at 10:47 EDT , CC: ANSHU Romeo; Dr. Marci Rose DO Adjustment Clerk: Signed Marci Rose DO Work Phone: Start: 05-02-2021 End: 05-02-2021 Comments: See Note; NOTES: [facility] [address] [place] [address] Ankle min 3 Views MR#: [id number] Acct: [id number] Name: SIERRA GARCÍA Rep #: [id number] : 1945 M 75 From: George kay MD PCP: Dr. Marci Rose DO Status: DEP AMB Study: Ankle min 3 Views Date of Exam: 05/02/21 Exam# [id number] Ordering Dr: Phil Nugent PA STUDY: X-RAY - RIGHT ANKLE REASON FOR EXAM: Male, 75 years old. FELL ON THE ICE, STS AND PAIN TECHNIQUE: 3 view(s) of the ankle. COMPARISON: None. FINDINGS: Acute oblique and transverse fractures are present through the distal fibula and lateral malleolus junction, and origin of the medial malleolus, respectively with minimal displacement. Mild to moderate soft tissue swelling is also present. Normal tibiotalar articulation and ankle mortise. Normal visualized talus and calcaneus. The visualized subtalar, talonavicular, calcaneocuboid and tarsal articulations are normal. RAD/Ankle min 3 Views IMPRESSION: 1. Acute medial and lateral malleoli fractures Electronically Signed: George Linares MD at 17:09 EST Reading Location ID and State: [address] [place] [address] , Service support , CC: ADDI Nugent; Dr. Marci Rose DO Adjustment Clerk: Signed Marci Rose DO Work Phone: Start: 05-02-2021 End: 05-02-2021 Comments: See Note; NOTES: [facility] [address] [place] [address] OFFICE VISIT Date of Service: 05/02/21 MR#: [id number] Acct: [id number] Name: SIERRA GARCÍA Rep #: [id number] : 1945 Provider: ADDI Nugent Age/Sex: 75/M Location: [facility] Status: Signed Intake Vital Signs 05/02/21 15:55 Height 6 ft Weight: 172 lb BMI 23.3 BP 112/72 Blood Pressure Location Lt brachial Position Sitting Respiration 16 Pulse 58 L Pulse Source Monitor Temp 97.5 F L Temp Source Temporal Pulse Oximetry (%) 95 Oxygen Delivery Method room air Intake Visit Reasons: R ANKLE INJURY Chief Complaint: COVID Allergies No Known Allergies Allergy (Verified 05/02/21 15:56) Medications levothyroxine 50 mcg PO DAILY 10/11/18 [History Confirmed 05/02/21] lisinopril-hydrochlorothia zide 5 - 6.25 mg PO DAILY 10/11/18 [History Confirmed 05/02/21] paroxetine HCl 30 mg PO DAILY 10/11/18 [History Confirmed 05/02/21] simvastatin 10 mg PO DAILY 10/11/18 [History Confirmed 05/02/21] [facility] Medical History (Updated 05/02/21 @ 16:04 by Phil FONTANA, PA) Arthritis Back pain HTN (hypertension) Hypothyroid Pneumonia Pneumonia, pneumococcal Surgical History no surgical history Family History (Updated 01/07/21 @ 04:47 by Merlyn Pate) Mother Leo's hereditary optic atrophy Aunt Leo's hereditary optic atrophy Uncle Leo's hereditary optic atrophy Social History Smoking Status: Never smoker substance use type: does not use HPI HPI Chief Complaint: COVID Details: SIERRA GARCÍA, is a 75 M who presents to the office today for complaint of right ankle pain after slipping and falling on the ice this morning. 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 He states he has been walking on it since then however does continue to have pain. No numbness, tingling or loss range of motion. No other associated symptoms or alleviating/aggravating factors. ROS Const Constitutional: Positive for other (6 system ROS completed with pertinent findings in HPI otherwise normal.) Exam Const General: cooperative and healthy appearing Resp Effort Inspection: normal respiratory effort Cardio Rate: regular rate Skin General: no rashes or lesions noted Neuro General: patient alert and CN's II-XI intact bilaterally Extrem General: capillary refill normal Other: Distal pulses intact along with appropriate sensation to light touch throughout. Mild ecchymosis just distal to the right lateral malleolus. Psych Appearance: grossly normal Mental Status: mental status grossly normal Coding Level of Care Code Off vis,new,level 4 Diagnoses Right ankle strain S96.911A Closed right fibular fracture S82.401A Assessment and Plan Assessment and Plan (1) Right ankle strain: Status: Acute (2) Closed right fibular fracture: Status: Acute Orders: Orders: Ankle min 3 Views Today S96.911A Referrals: Podiatry S82.401A Plan - Phil FONTANA PA: X-ray read interpreted by myself finding no acute closed fracture of the right fibula, awaiting radiology interpretation at time of patient discharge. Patient placed in a cam boot and given crutches for ambulation. Patient advised of RICE techniques as well as other symptomatic management techniques. Advised of potential red flags and when appropriate to report to the ED. Patient given referral to Dr. Carpenter for further evaluation and treatment. Patient verbalized understanding and agreement with all the above. 05/02/21 173 <Electronically signed by Phil FONTANA> Date Phil FONTANA Cosigner Signature: Date (if applicable) CC: Marci Rose DO Work Phone: Start: 02-06-2021 End: 02-07-2021 Comments: See Note; NOTES: [facility] [address] [place] [address] Chest PA and Lateral MR#: [id number] Acct: [id number] Name: SIERRA GARCÍA Rep #: [id number] : 1945 M 75 From: Reji Haque MD PCP: Dr. Marci Rose, DO Status: DEP AMB Study: Chest PA and Lateral Date of Exam: 02/06/21 Exam# [id number] Ordering Dr: Mely Reis MANAGER SUPPLIER MANAGER SUPPLIER-C STUDY: X-RAY CHEST REASON FOR EXAM: Male, 75 years old. Pneumonia TECHNIQUE: PA and lateral views of the chest. COMPARISON: 01/06/2021 FINDINGS: Bibasilar atelectasis There is no demonstrated pleural abnormality. Normal size heart. Normal mediastinum and bernardino. Normal visualized pulmonary arteries. Normal visualized aortic arch and descending thoracic aorta. There is no demonstrated abnormality of the visualized soft tissue structures of the upper abdomen. RAD/Chest PA and Lateral IMPRESSION: Bibasilar atelectasis. Electronically Signed: Reji Haque MD at 6:38 EST Tel , Service support , CC: MICHI Reis; Dr. Marci Rose DO Adjustment Clerk: Signed Mely Reis [facility] Work Phone: Start: 01-07-2021 End: 01-07-2021 Comments: See Note; NOTES: [facility] Imaging Services [address] [place] [address] CTA Chest W/WO Contrast MR#: [id number] Acct: [id number] Name: SIERRA GARCÍA Rep #: [id number] : 1945 M 75 From: Lyubov Fuller MD PCP: Dr. Marci Rose DO Status: REG Study: CTA Chest W/WO Contrast Date of Exam: 01/07/21 Exam# [id number] Ordering Dr: Mauricio Petersen DO STUDY: CTA CHEST REASON FOR EXAM: Male, 75 years old. dyspnea RADIATION DOSAGE (If Supplied By Facility): CTDIvol = ( 11.53 ) mGy, DLP = ( 441.60 ) mGycm TECHNIQUE: The examination was performed with the intravenous administration of IV 100mL Isovue-370. Post-processing of the angiographic images was performed, with multiplanar reformation and 3D reconstruction. Individualized dose optimization techniques were used for this CT. COMPARISON: None. FINDINGS: Normal enhancement of the main pulmonary artery and right and left pulmonary arteries. Normal enhancement of the bilateral peripheral pulmonary arteries. There is no demonstrated pulmonary embolism. There is minor atherosclerotic calcification of the aortic arch with tortuosity. There is no demonstrated aortic dissection. Normal cardiac size with mild coronary artery calcifications. Normal mediastinum. Normal hilar regions. Normal visualized trachea and bronchi. The lungs are underexpanded. There is focal consolidation within the lingular and left lower lobe concerning for multilobar pneumonia. Normal pleura. Normal chest wall structures. There are degenerative changes of thoracic spine. Normal visualized upper abdomen. CT/CTA Chest W/WO Contrast IMPRESSION: Negative CTA chest examination, without a demonstrated pulmonary embolism or arterial dissection. Lingular and left lower lobe pneumonia. No pleural effusion. Electronically Signed: Lyubov Fuller MD at 2:03 EDT , Service support , CC: Dr. Mauricio Petersen DO; Dr. Marci Rose DO Adjustment Clerk: Signed Marci Rose DO Work Phone: Start: 01-06-2021 End: 01-07-2021 Comments: See Note; NOTES: [facility] Imaging Services [address] [place] [address] Chest 1 View (Portable) MR#: [id number] Acct: [id number] Name: SIERRA GARCÍA Rep #: [id number] : 1945 M 75 From: Lyubov Fuller MD PCP: Dr. Marci Rose DO Status: PRE ER Study: Chest 1 View (Portable) Date of Exam: 01/06/21 Exam# [id number] Ordering Dr: Mauricio Petersen DO STUDY: X-RAY CHEST REASON FOR EXAM: Male, 75 years old. dyspnea TECHNIQUE: Single AP portable view of the chest. COMPARISON: 03/02/2020. FINDINGS: The lungs are underexpanded with vascular crowding. There is mild left basilar atelectasis, otherwise clear lungs. There is no demonstrated pleural abnormality. Normal size heart. Normal mediastinum and bernardino. Normal visualized pulmonary arteries. Normal visualized aortic arch and descending thoracic aorta. Normal visualized thoracic spine. Normal visualized ribs, clavicles, and shoulders. There is no demonstrated abnormality of the visualized soft tissue structures of the upper abdomen. RAD/Chest 1 View (Portable) IMPRESSION: Underexpanded lungs with mild left basilar atelectasis. Otherwise no acute cardiopulmonary disease. Electronically Signed: Lyubov Fuller MD at 0:14 EDT , Service support , CC: Dr. Mauricio Petersen DO; Dr. Marci Rose DO Adjustment Clerk: Signed Marci Rose DO Work Phone: Start: 03-06-2020 End: 03-06-2020 Emergency Department Summary Comments: See Note; NOTES: [facility] Medical Records Department [address] [place] [address] Emergency Department Summary 03/06/20 MR#: [id number] Acct: [id number] Name: SIERRA GARCÍA Rep #: [id number] : 1945 74 From: Mauricio Petersen DO PCP: Dr. Marci Rose DO Status:DEP ER History of Present Illness Chief Complaint: General Illness Informant: Patient Narrative: 74-year-old male recent diagnosis of COVID-19 and hospitalist until 2 days ago. Tells me that his pulse ox was reading about 75% at home and he wanted to be evaluated. Arriving here in the emergency department he has been in the mid to high 90s on room air. He states he will go and replace his battery. He is already on dexamethasone and Levaquin. Patient states that he feels like he is improving each day. - Past Medical History (1) COVID-19 Status: Chronic (2) Depression Status: Chronic (3) Hyperlipidemia Status: Chronic (4) Hypertension Status: Chronic (5) Hypothyroidism Status: Chronic (6) Spinal stenosis Status: Chronic Past Medical History - Allergies and Home Meds Allergies/Adverse Reactions: Allergies No Known Allergies Allergy (Verified 03/02/20 15:06) Primary Care Physician: Marci Rose DO [Primary Care Provider] - Surgical History: no surgical history Smoking Status: Never smoker Drugs: None - Family History Maternal Family History: Reports: - - Patient denies any market maternal family history including heart disease, diabetes, cancer. Paternal Family History: Reports: Pulmonary Disease - Patient notes his father had underlying lung disease with significant heavy tobacco use. Review of Systems General: Reports: Malaise. Denies: Chills, Fever, Sweats Eyes: Denies: Visual changes - bilaterally, Diplopia ENT: Denies: Rhinorrhea, Sore throat Cardiovascular: Denies: Chest pain, Palpitations Respiratory: Reports: Dyspnea, Cough. Denies: Dyspnea on exertion Gastrointestinal: Denies: Abdominal pain, Nausea, Vomiting, Diarrhea, Melena, Hematochezia Genitourinary: Denies: Dysuria, Hematuria, Frequency Musculoskeletal: Denies: Back pain, Extremity Pain Skin: Denies: Rash, Wounds Neurological: Denies: Headache, Weakness, Numbness Physical Exam Vital Signs/Narrative: Vital Signs Temp Pulse Resp BP Pulse Ox 03/06/20 15:20 95 03/06/20 14:54 96.0 F L 63 18 113/78 97 03/06/20 14:47 96.0 F L 62 18 113/78 98 Inital Vital Signs reviewed: Yes General: Well nourished, Well developed, No Acute Distress Head: Normocephalic, Atraumatic Eyes: Perrl, EOMI ENT: Moist mucous membranes, No rhinorrhea Neck: Supple, Nontender Cardiovascular: Regular rate, Regular rhythm, No murmurs Respiratory: No distress, CTA bilaterally, Chest nontender Abdomen: Soft, Nontender, Nondistended, Normal bowel sounds Back: Nontender, Normal Inspection Extremities: Nontender, No edema Skin: Normal color, No rash Neurological: Alert, Oriented x3, Cranial nerves II-XII grossly intact, Normal Strength, Normal Sensation Psychological: Normal affect, Normal Mood Diagnostic/Tx/Re-eval - Medical Decision Making Patient states that he does not feel he needs anything. He just wanted to make sure he was doing okay. He is stating that each day he is feeling a little bit better. He is not requiring supplemental oxygen at this time. His lung sounds are clear. He is asking for discharge. I think it is reasonable. ED Disposition - Plan for ED Patient: Disposition: Home or Assisted Living Diagnosis: COVID-19 Instructions: Coronavirus Disease 2019 (COVID-19): Caring for Yourself or Others Referrals: Marci Rose DO [Primary Care Provider] - As Needed What to do if you have Problems For any increased pain, shortness of breath, bleeding, nausea or vomiting, chest pain, or any unexpected problems, contact your Primary Care Provider. Call [facility] ([phone]) or report to the closest Emergency Room. Call 911 if necessary. 03/06/202004 <Electronically signed by Mauricio Petersen DO> Date Mauricio Petersen DO Cosigner Signature (If Indicated): Date CC: DO Marci Black Start: 03-02-2020 End: 03-02-2020 Chest 1 View (Portable) Comments: See Note; NOTES: [facility] Imaging Services [address] [place] [address] Chest 1 View (Portable) MR#: [id number] Acct: [id number] Name: SIERRA GARCÍA Rep #: [id number] : 1945 M 74 From: Ambar Dubon MD PCP: Dr. Marci Rose DO Status: REG ER Study: Chest 1 View (Portable) Date of Exam: 03/02/20 Exam# [id number] Ordering Dr: Kitty Chilel MD STUDY: X-RAY CHEST REASON FOR EXAM: Male, 74 years old. COVID POSITIVE. COUGH. TECHNIQUE: 1 view COMPARISON: Prior chest radiograph of 02/26/2020 FINDINGS: Continued shallow chest expansion with basilar atelectasis on the right and broad bands of atelectasis in the left mid lung. Negative for other infiltrate types in the upper lung zones. Lung bases largely obscured by the diaphragms. Normal size heart. Normal mediastinum and bernardino. Normal visualized pulmonary arteries. There is atherosclerotic tortuosity of the aortic arch and descending thoracic aorta. Degenerative changes of the spine with a dextroscoliosis. Normal visualized ribs, clavicles, and shoulders. There is no demonstrated abnormality of the visualized soft tissue structures of the upper abdomen. RAD/Chest 1 View (Portable) IMPRESSION: Continued shallow chest expansion with bilateral atelectatic changes. Negative for other infiltrates in the upper lung zones. Lung bases partially obscured by diaphragms. Electronically Signed: Ambar Dubon MD at 16:07 EST , Service support , CC: Dr. Kitty Chilel MD; Dr. Marci Rose DO Adjustment Clerk: Signed Marci Rose Start: 02-26-2020 End: 02-26-2020 Chest 1 View (Portable) Comments: See Note; NOTES: [facility] Imaging Services [address] [place] [address] Chest 1 View (Portable) MR#: [id number] Acct: [id number] Name: SIERRA GARCÍA Rep #: [id number] : 1945 M 74 From: Jes Naranjo PCP: Dr. Marci Rose DO Status: PRE ER Study: Chest 1 View (Portable) Date of Exam: 02/26/20 Exam# [id number] Ordering Dr: Yevgeniy Andrew MD STUDY: X-RAY CHEST REASON FOR EXAM: Male, 74 years old. FEVER,CHILLS -- 2 TRIES AT FULL INSPIRATION TECHNIQUE: Frontal view of the chest COMPARISON: None. FINDINGS: Inspiratory volumes are low despite patient''s best effort and repeating the exam. There is bilateral basal atelectasis. Lower lobes are obscured by raised hemidiaphragms. There is no pneumothorax, pulmonary edema, pleural effusions or cardiac megaly. Osseous structures are intact. RAD/Chest 1 View (Portable) IMPRESSION: Low inspiratory volumes, obscured lower lobes. Recommend CT chest for definitive assessment. Electronically Signed: Jenniferkatty Cheikh, at 16:57 EST Tel , Service support , CC: Dr. Yevgeniy Andrew MD; Dr. Marci Rose DO Adjustment Clerk: Signed Marci Rose Start: 02-26-2020 End: 02-26-2020 Emergency Department Summary Comments: See Note; NOTES: [facility] Medical Records Department [address] [place] [address] Emergency Department Summary 02/26/20 MR#: [id number] Acct: [id number] Name: SIERRA GARCÍA Rep #: [id number] : 1945 74 From: Yevgeniy Andrew MD PCP: Dr. Marci Rose DO Status:REG ER History of Present Illness Chief Complaint: Nausea/Vomiting Informant: Patient Onset: Days - 3 Timing: Continuous Quality: malaise, nausea, cough Current Severity: Moderate Maximum Severity: Moderate Worsened by: - - n/a Relieved by: - - nothing Associated Symptoms: Nausea, Vomiting - mild, Nonproductive cough. Negative for: Nasal Congestion, Headache, Myalgias, Diarrhea, Shortness of Breath, Chest Pain, Hemoptysis Narrative: Patient has had fevers, chills, malaise, nonproductive cough, nausea with decreased appetite and oral intake including fluids, and a couple episodes of nonbilious nonbloody emesis. He denies any chest or abdominal pain. Denies any myalgias, headaches. No loss of taste or smell. He lives alone. Patient presents during the national coronavirus emergency declaration/pandemic. He denies any known contact with anyone infected with COVID-19. He denies traveling out of the immediate area recently. He states that whenever he goes out to stores he wears a mask and tries to be careful during the pandemic. - Past Medical History (1) Hypertension Status: Chronic (2) Hyperlipidemia Status: Chronic (3) Hypothyroidism Status: Chronic (4) Depression Status: Chronic (5) Spinal stenosis Status: Chronic Past Medical History - Allergies and Home Meds Allergies/Adverse Reactions: Allergies No Known Allergies Allergy (Verified 02/26/20 14:37) Primary Care Physician: Marci Rose DO [Primary Care Provider] - As Needed Lives: Alone Smoking Status: Never smoker Review of Systems General: Reports: Chills, Fever, Malaise, Subjective. Denies: Sweats Eyes: Denies: Visual changes - bilaterally, Diplopia ENT: Denies: Bilateral ear pain, Rhinorrhea, Sore throat Cardiovascular: Denies: Chest pain, Palpitations Respiratory: Reports: Cough. Denies: Dyspnea, Sputum, Dyspnea on exertion, Orthopnea Gastrointestinal: Reports: Nausea, Vomiting. Denies: Abdominal pain, Diarrhea, Melena, Hematochezia Genitourinary: Denies: Dysuria, Hematuria, Frequency Musculoskeletal: Denies: Myalgias, Back pain, Swelling, Extremity Pain Skin: Denies: Rash, Wounds Neurological: Denies: Headache, Weakness, Numbness Physical Exam Vital Signs/Narrative: Vital Signs Temp Pulse Resp BP Pulse Ox 02/26/20 15:36 100.8 F H 128 H 28 H 113/79 95 02/26/20 14:33 100.8 F H 128 H 16 113/79 95 Inital Vital Signs reviewed: Yes General: Well nourished, Well developed, - - Well-appearing no distress, conversive in full sentences Head: Normocephalic, Atraumatic Eyes: Perrl, EOMI Nose: Normal Inspection, No Rhinorrhea Mouth/Throat: Normal Inspection, No Posterior Erythema, Airway Patent Neck: Supple, Nontender, No Lymphadenopathy, No Meningismus Cardiovascular: Regular rate, Regular rhythm, No murmurs, Tachycardia Respiratory: No distress, CTA bilaterally, Chest nontender Abdomen: Soft, Nontender, Nondistended, Normal bowel sounds Back: Nontender, Normal Inspection. Negative for: CVA tenderness Extremities: Nontender, No edema. Negative for: Calf Tenderness Skin: Normal color, No rash, No Trauma Neurological: Alert, Oriented x3, Cranial nerves II-XII grossly intact, Normal Strength, Normal Sensation, Normal Gait Psychological: Normal affect, Normal Mood Diagnostic/Tx/Re-eval Chest X-Ray - ED: 1 View, Read by ED Physician, No Acute Disease, Chronic Changes Impressions Chest X-Ray 02/26/20 16:22 IMPRESSION: Low inspiratory volumes, obscured lower lobes. Recommend CT chest for definitive assessment. Electronically Signed: Jenniferkatty Cheikh, at 16:57 EST Tel , Service support , 02/26/20 16:22 Chest 1 View (Portable) [RAD] Stat Laboratory Results 02/26/20 02/26/20 02/26/20 16:05 16:05 Unknown WBC 8.1 RBC 4.66 Hgb 14.6 Hct 41.9 MCV 89.9 MCH 31.3 MCHC 34.8 RDW Std Deviation 47.3 H RDW Coeff of Alan 15.3 H Plt Count 133 L MPV 11.1 Immature Gran % (Auto) 0.400 Neut % (Auto) 84.2 H Lymph % (Auto) 4.7 L Tompkins % (Auto) 10.5 H Eos % (Auto) 0.0 Baso % (Auto) 0.2 Absolute Neuts (auto) 6.8 Absolute Lymphs (auto) 0.38 L Nucleated RBC % 0 Differential Comment SCANNED Sodium 137 Potassium 4.4 Chloride 106 Carbon Dioxide 26.0 Anion Gap 5 BUN 22 H Creatinine 1.40 H Estim Creat Clear Calc 50.49 Est GFR (MDRD) Af Amer 64 Est GFR (MDRD) Non-Af 53 L BUN/Creatinine Ratio 15.7 Glucose 104 Lactic Acid 1.6 Calcium 9.3 Total Bilirubin 0.40 AST 35 ALT 32 Alkaline Phosphatase 65 Troponin I < 0.015 Total Protein 7.7 Albumin 3.8 Globulin 3.9 Albumin/Globulin Ratio 1.0 - Rhythm Strip Rhythm Strip: Sinus Tach Rate: 110 Ectopy: None - EKG Initial EKG Interpretation: No Acute Injury Pattern, Sinus Tachycardia, LAFB Prior: No Prior - Medical Decision Making With Tylenol for his fever and fluids, Zofran, the patient is feeling better and his vital signs improved especially his heart rate, along with his fever. His work-up is consistent with COVID-19 disease that is otherwise uncomplicated. There is no sign of pneumonia on his chest x-ray, and although the interpretation above is noted, I do not think the results of the CT will change the management at this time. We ambulated him around the room, he became hypoxic to 89% on RA just w/ standing. He is in the mid-high 90s on a 2 L nasal cannula. Given this, he is not a candidate for the IV monoclonal antibody infusion, but he is well enough to be discharged home, will prescribe him Decadron in addition to the oxygen we are getting him from the emergency department. The patient was discharged home with appropriate information on this and COVID-19. ED Disposition - Plan for ED Patient: Disposition: Home or Assisted Living Diagnosis: Acute respiratory disease due to COVID-19 virus, Hypoxemia Instructions: Coronavirus Disease 2019 (COVID-19): Caring for Yourself or Others Prescriptions: Dexamethasone [Decadron] 6 mg PO DAILY 7 Days #7 tab Prescription Printed Oxygen, Home [Home Oxygen] 2 lpm NASAL CONT #1 unit Prescription Printed Referrals: Marci Rose, [Primary Care Provider] - As Needed What to do if you have Problems For any increased pain, shortness of breath, bleeding, nausea or vomiting, chest pain, or any unexpected problems, contact your Primary Care Provider. Call [facility] ([phone]) or report to the closest Emergency Room. Call 911 if necessary. 02/26/20 7200 <Electronically signed by Yevgeniy Andrew MD> Date Yevgeniy Andrew MD Cosigner Signature (If Indicated): Date CC: DO Marci Black Start: 02-26-2020 End: 02-28-2020 12 Lead EKG Comments: See Note; NOTES: [facility] Cardiovascular Services [address] [place] [address] 12 Lead EKG 02/26/20 1613 MR#: [id number] Acct: [id number] Name: SIERRA GARCÍA Rep #: [id number] : 1945 74 From: Reji Antonio MD Attending Dr: Status: DEP ER Ordering Dr: Yevgeniy Andrew MD Date: 02/26/20 Location: ED Sex: M C Admitted: Test Reason : GENERAL ILLNESS Blood Pressure : / mmHG Vent. Rate : 113 BPM Atrial Rate : 113 BPM P-R Int : 142 ms QRS Dur : 088 ms QT Int : 334 ms P-R-T Axes : 045 -38 029 degrees QTc Int : 458 ms Sinus tachycardia Left axis deviation Abnormal ECG Confirmed by GENNA SILVESTRE, REJI ([id number]), international editorial producer JON SALEH ([id number]) on 02/28/2020 10:46:41 AM Referred By: BB Confirmed By:REJI ANTONIO MD 02/28/20 1046 Date Reji Antonio MD CC: Dr. Yevgeniy Andrew MD; Dr. Marci Rose DO Signed Marci Rose Start: 11-03-2018 End: 11-17-2018 Blood pressure within normal parameters - no follow-up required Mayank Ball DO Work Phone: Start: 11-03-2018 End: 11-17-2018 Doc fx & test/txmnt for op Mayank Ball DO Work Phone: Start: 11-03-2018 End: 11-17-2018 Documentation of current medications Mayank Ball DO Work Phone: Start: 11-03-2018 End: 11-17-2018 Fall plan of care docd Mayank Ball DO Work Phone: Start: 11-03-2018 End: 11-17-2018 Fall risk assessment docd Mayank Ball DO Work Phone: Start: 11-03-2018 End: 11-17-2018 Pain assessment documented as positive - follow-up documented Mayank Ball DO Work Phone: Start: 11-03-2018 End: 11-17-2018 Ptfalls assess-docd ge2>/yr Mayank Ball DO Work Phone: Start: 11-03-2018 End: 11-15-2018 Radex spine lumbosacral 2/3 views Mayank Ball DO Work Phone: Start: 11-03-2018 End: 11-17-2018 Tobacco non-user Mayank Ball DO Work Phone: Start: 10-17-2018 End: 10-17-2018 Spine Lumbar (Routine) Comments: See Note; NOTES: [facility] Imaging Services [address] [place] [address] Spine Lumbar (Routine) MR#: [id number] Acct: [id number] Name: SIERRA GARCÍA Rep #: [id number] : 1945 M 73 From: Wojciech Sharif MD PCP: Marci Rose DO Status: REG CLI Study: Spine Lumbar (Routine) Date of Exam: 10/17/18 Exam# [id number] Ordering Dr: Marci Rose DO STUDY: MRI LUMBAR SPINE WITHOUT CONTRAST REASON FOR EXAM: Male, 73 years old. Back and bilateral leg pain TECHNIQUE: Standardized fat and water weighted pulse sequences were obtained in the sagittal and axial planes. COMPARISON: Radiographic study on October 11, 2018 FINDINGS: No evidence for acute fracture or subluxation. There is low signal intensity on T1 within the central portion of the L3 vertebral body which increases in signal T2 and STIR imaging sequence system with intramedullary bone marrow edema as well as very subtle hairline fracture T12-L1: Normal endplates. Normal disc height, hydration and morphology. Normal bilateral facet joints. Normal central canal and bilateral lateral recesses. Normal bilateral intervertebral neural foramina. Normal lumbar lordosis. There is no substantial scoliosis. Normal conus medullaris that terminates at T12-L1 L1-2: Mild endplate spurring. Normal disc height, desiccation and minimal annular bulge. Normal bilateral facet joints. Normal central canal and bilateral lateral recesses. Normal bilateral intervertebral neural foramina. L2-3: Normal endplates. Normal disc height, desiccation and minor annular bulge with small left foraminal disc protrusion.. Facet arthropathy and thickening of ligamenta flava.. Normal central canal and bilateral lateral recesses. Mild right neuroforaminal encroachment and mild to moderate narrowing on the left L3-4: Endplate spurring.. Normal disc height, desiccation and mild bulging of the annulus and small left foraminal disc protrusion. Mild facet arthropathy and thickening of ligamenta flava.. Normal central canal and bilateral lateral recesses.. Mild right neuroforaminal encroachment and moderate narrowing on the left L4-5: Grade 1 spondylolisthesis. Normal disc height and mild bulging disc osteophyte complex. Bilateral facet arthropathy and thickening of ligamenta flava association with small synovial cyst on the right moderate narrowing of the central canal. Severe right lateral recess and neuroforaminal stenosis. Moderate to severe left lateral recess and neuroforaminal stenosis exaggerated by shortened pedicles. L5-S1: Mild endplate spurring.. Normal disc height, desiccation and mild annular bulge. Facet arthropathy and thickening of ligamenta flava greater on the left. Mild narrowing of the central canal. Mild right lateral recess and neuroforaminal stenosis with moderate narrowing on the left. Normal visualized sacral ala. Normal visualized paraspinous soft tissue structures. No significant change since prior study given differences attributed to differences in imaging techniques MRI/Spine Lumbar (Routine) IMPRESSION: Findings consistent with acute hairline fracture of L3. Multilevel spinal stenosis secondary to disc disease and bony hypertrophy most severe at L4-5 in association with spondylolisthesis and synovial cyst on the right. Other findings as above Electronically Signed: Wojciech Sharif MD at 16:50 EDT , Service support , CC: Marci Rose DO Adjustment Clerk: Signed Marci Rose Work Phone: Start: 10-11-2018 End: 10-11-2018 Emergency Department Summary Comments: See Note; NOTES: [facility] Medical Records Department [address] [place] [address] Emergency Department Summary 10/11/18 0207 MR#: [id number] Acct: [id number] Name: SIERRA GARCÍA Rep #: [id number] : 1945 73 From: Chelsey Madison MD PCP: Marci Rose DO Status: REG ER - ER Visit Summary Date of Service: 10/11/18 Chief Complaint: Fall History of Present Illness: The patient is a 73 M presenting after mechanical fall. Patient states that he was flying a model airplane and lost his balance. He fell backward landing on his buttock. He states he did not hit his head or lose consciousness. He has been able to ambulate. He has pain in his low back. Denies other injuries. He is not on anticoagulants. Physical Examination: Vitals are stable. Patient is afebrile. Alert no acute distress. HEENT exam is unremarkable. Neck is nontender Lungs are clear and equal bilaterally. Heart is regular rate and rhythm. Abdomen is soft nontender nondistended. Back: Mild diffuse lumbar tenderness, no step-off Extremities are unremarkable. Skin is warm and dry. No focal neurologic deficit. Remainder of exam is unremarkable. Emergency Department Course and Treatment: Lumbar spine x-ray, sacrum x-ray, pelvis x-ray showed no fracture. Patient is advised to follow-up with his primary care physician. Advised to return to ED for worsening complaints. Disposition: Discharge home Impression: Lumbar strain, mechanical fall This note was generated with ShowClixation software. It may contain incorrect words, spelling, and punctuation that were not noted in review of the chart prior to signing ED Disposition - Plan for ED Patient: Instructions: BACK AND NECK PAIN, General Referrals: Marci Rose DO [Primary Care Provider] - What to do if you have Problems For any increased pain, shortness of breath, bleeding, nausea or vomiting, chest pain, or any unexpected problems, contact your Primary Care Provider. Call [facility] ([phone]) or report to the closest Emergency Room. Call 911 if necessary. 10/11/18357 <Electronically signed by Chelsey Madison MD> Date Chelsey Madison MD Cosigner Signature (If Indicated): Date CC: Marci Alvarado Start: 10-11-2018 End: 10-11-2018 Discharge Instruction Comments: See Note; NOTES: [facility] Medical Records Department [address] [place] [address] Discharge Instruction 10/11/18353 MR#: [id number] Acct: [id number] Name: SIERRA GARCÍA Rep #: [id number] : 1945 73 From: Chelsey Madison MD PCP: Marci Rose DO Status: [facility] ER ED Disposition - Plan for ED Patient: Instructions: BACK AND NECK PAIN, General Referrals: Mraci Rose DO [Primary Care Provider] - What to do if you have Problems For any increased pain, shortness of breath, bleeding, nausea or vomiting, chest pain, or any unexpected problems, contact your Primary Care Provider. Call [facility] ([phone]) or report to the closest Emergency Room. Call 911 if necessary. 10/11/18353 <Electronically signed by Chelsey Madison MD> Date Chelsey Madison MD Cosigner Signature (If Indicated): Date CC: Marci Alvarado Start: 10-11-2018 End: 10-11-2018 Lumbar Spine 2 or 3 Views Comments: See Note; NOTES: [facility] Imaging Services [address] [place] [address] Lumbar Spine 2 or 3 Views MR#: [id number] Acct: [id number] Name: SIERRA GARCÍA Rep #: [id number] : 1945 M 73 From: Bibi Simpson MD PCP: Marci Rose DO Status: REG ER Study: Lumbar Spine 2 or 3 Views Date of Exam: 10/11/18 Exam# [id number] Ordering Dr: Chelsey Madison MD STUDY: X-RAY - LUMBAR SPINE REASON FOR EXAM: Male, 73 years old. Fall. Lower back pain TECHNIQUE: 3 view(s) of the lumbar spine were obtained. COMPARISON: None FINDINGS: Normal lumbar lordosis. There is no substantial scoliosis. There is a normal alignment of the vertebrae. There is diffuse demineralization with multi-level endplate spondylosis. There is multi-level degenerative disc disease with multi-level disc space narrowing. The soft tissue structures are unremarkable. RAD/Lumbar Spine 2 or 3 Views IMPRESSION: Degenerative changes of the spine, as detailed above. Electronically Signed: Bibi Simpson, at 3:35 EDT Tel , Service support , CC: Chelsey Madison MD; Marci Rose DO Adjustment Clerk: Signed Marci Rose Start: 10-11-2018 End: 10-11-2018 Pelvis 1 or 2 Views Comments: See Note; NOTES: [facility] Imaging Services [address] [place] [address] Pelvis 1 or 2 Views MR#: [id number] Acct: [id number] Name: SIERRA GARCÍA Rep #: [id number] : 1945 M 73 From: Bibi Simpson MD PCP: Marci Rose DO Status: REG ER Study: Pelvis 1 or 2 Views Date of Exam: 10/11/18 Exam# [id number] Ordering Dr: Chelsey Madison MD STUDY: X-RAY - PELVIS REASON FOR EXAM: Male, 73 years old. Fall TECHNIQUE: One view of the pelvis was obtained. COMPARISON: None. FINDINGS: There is a non-specific bowel gas pattern. Normal visualized soft tissue structures. There is diffuse demineralization of the osseous structures. There is narrowing with cortical sclerosis and osteophyte formation of the sacroiliac joint consistent with degenerative osteoarthritic changes. Normal visualized bilateral superior and inferior pubic rami. There are degenerative changes of the pubic symphysis with articular narrowing and sclerosis. Normal ischial tuberosities. There are osteoarthritic changes of the right femoral head with marginal osteophyte formation. Normal right acetabulum. Normal right hip joint. There are osteoarthritic changes of the left femoral head with marginal osteophyte formation. Normal left acetabulum. Normal left hip joint. RAD/Pelvis 1 or 2 Views IMPRESSION: Degenerative changes and demineralization of the pelvis. Electronically Signed: Bibi Simpson, at 3:08 EDT Tel , Service support , CC: Chelsey Madison MD; Marci Rose DO Adjustment Clerk: Signed Marci Rose Start: 10-11-2018 End: 10-11-2018 Sacrum-Coccyx min 2 Views Comments: See Note; NOTES: [facility] Imaging Services [address] [place] [address] Sacrum-Coccyx min 2 Views MR#: [id number] Acct: [id number] Name: SIERRA GARCÍA Rep #: [id number] : 1945 M 73 From: Bibi Simpson MD PCP: Marci Rose DO Status: REG ER Study: Sacrum-Coccyx min 2 Views Date of Exam: 10/11/18 Exam# [id number] Ordering Dr: Chelsey Madison MD STUDY: X-RAY - SACRUM/COCCYX REASON FOR EXAM: Male, 73 years old. Fall. Tailbone pain TECHNIQUE: 3 view(s) of the sacrum and coccyx were obtained. COMPARISON: None. FINDINGS: There is degenerative arthrosis of the bilateral sacroiliac joints. There is demineralization of the sacral ala. Normal sacrococcygeal junction with a normal angulation. There is demineralization of the coccygeal segments. The presacral soft tissue structures are unremarkable. RAD/Sacrum-Coccyx min 2 Views IMPRESSION: No acute bone injury of the sacrum and coccyx. Electronically Signed: Bibi Simpson, at 3:38 EDT Tel , Service support , CC: Chelsey Madison MD; Marci Rose DO Adjustment Clerk: Signed Marci Rose Start: 08-28-2018 End: 08-28-2018 Arterial Comments: See Note; NOTES: [facility] Cardiovascular Services [address] [place] [address] Lower Ext Art Exam w/ Exercise 08/25/18 0858 MR#: [id number] Acct: [id number] Name: SIERRA GARCÍA Rep #: [id number] : 1945 73 From: Perry Christine MD Attending Dr: Marci Rose DO Status: REG CLI Ordering Dr: Marci Rose DO Date: 08/25/18 Location: [facility] Sex: M C Admitted: Reason For Study: Claudication Procedure A bilateral lower extremity continuous wave Doppler with analog waveform analysis,segmental pressures,and ankle brachial indexes with exercise. Left Segmental Pressures Left brachial= 125mmHg. Left posterior tibial artery = 156mmHg. Left dorsalis pedis artery = 154mmHg. The left dorsalis pedis waveforms are triphasic. The left posterior tibial artery waveforms are triphasic. Right Segmental Pressures Right brachial= 130mmHg. Right posterior tibial artery = 152mmHg. Right dorsalis pedis artery = 154mmHg. The right dorsalis pedis waveforms are triphasic. The right posterior tibial artery waveforms are triphasic. Indices The right ankle brachial index by the dorsalis pedis is 1.18. The right ankle brachial index by the posterior tibial artery is 1.17. The right post exercise ankle brachial index is 1.34. The left ankle brachial index by the dorsalis pedis is 1.18. The left ankle brachial index by the posterior tibial artery is 1.20. The left post exercise ankle brachial index is 1.44. Interpretation Summary Triphasic Doppler waveforms are noted at ankle level bilaterally. Pulse-volume recording waveform amplitudes are satisfactory bilaterally. Resting ankle-brachial indices are bilaterally normal. Following 5 minutes of ambulation on a treadmill at 1.5 mph and a 5% grade, ankle pressures augment bilaterally, which is a normal physiological response. There is no evidence of significant arterial occlusive disease in the lower extremities bilaterally. Ordering Physician: Marci Rose Referring Physician: Marci Rose Performed By: Tracey Hill RVT 08/28/18 1128 Date Perry Christine MD CC: Marci Rose DO Date Dictated: 08/25/1858 Date Transcribed: 08/28/181127 Adjustment Clerk: Signed Marci Rose Work Phone: Start: 06-30-2015 End: 06-30-2015 Carotid Duplex Ultrasound Comments: See Note; NOTES: [facility] Cardiovascular Services [address] [place] [address] Carotid Duplex Ultrasound 06/27/15 1406 MR#: [id number] Acct: [id number] Name: SIERRA GARCÍA Rep #: [id number] : 1945 70 From: Chapincito Dunbar MD Attending Dr: Marci Rose DO Status: REG CLI Ordering Dr: Marci Rose DO Date: 06/27/15 Location: [facility] Sex: M C Admitted: Reason For Study: CAROTID STENOSIS Rt. Velocities/BP Lt. Velocities/BP Prox CCA 79.2/14.7 cm/sec. Prox CCA 109.0/28.1 cm/sec. Mid CCA 77.4/19.9 cm/sec. Mid CCA 95.0/25.8 cm/sec. Dist CCA 79.2/21.7 cm/sec. Dist CCA 72.7/20.5 cm/sec. Prox ICA 54.5/18.8 cm/sec. Prox ICA 56.9/12.9 cm/sec. Mid ICA 65.7/24.0 cm/sec. Mid ICA 73.3/21.1 cm/sec. Dist ICA 78.0/30.5 cm/sec. Dist ICA 71.5/27.0 cm/sec. Rt. ICA/CCA = 78.0/77.4=1.0. Lt. ICA/CCA = 73.3/95.0=0.8. Prox ECA 76.2/12.9 cm/sec. Prox ECA 90.9/21.7 cm/sec. Rt. Vert. 38.9/8.25 cm/sec. Lt. Vert. 47.5/18.5 cm/sec. Right Extracranial There is homogeneous, smooth atherosclerotic plaque noted in the right common carotid artery. There is homogeneous, smooth atherosclerotic plaque noted in the right internal carotid artery. There is intimal thickening but no significant atherosclerotic plaque noted in the right external carotid artery. Antegrade flow is noted in the right vertebral artery. Left Extracranial There is homogeneous, smooth atherosclerotic plaque noted in the left common carotid artery. There is homogeneous, smooth atherosclerotic plaque noted in the left internal carotid artery. There is intimal thickening but no significant atherosclerotic plaque noted in the left external carotid artery. Antegrade flow is noted in the left vertebral artery. Procedure Carotid Duplex [id number]. The exam was diagnostic. Exam performed in department. Interpretation Summary Mild (<50%) stenosis right extracranial internal carotid. Mild (<50%) stenosis left extracranial internal carotid. Flow within the vertebral arteries is antegrade bilaterally. Ordering Physician: Marci Rose Performed By: Sara West, NORMA, RVT 06/30/152112 Date Chapincito Dunbar MD CC: Marci Rose DO Date Dictated: 06/27/15 1406 Date Transcribed: 06/30/152112 Adjustment Clerk: Signed Marci Rose Work Phone: Start: 06-05-2015 End: 06-05-2015 Ecg routine ecg w/least 12 lds w/i&r [MEASUREMENTS ANALYSIS] Date of Test: 06/05/2015 12:21:26; Heart Rate: 61; MS Interval: 114; QRS: 104; QT Interval: 396; Corrected QT Interval (QTc): 397; P Wave Sterling: 54; QRS Wave Sterling: -13; T Wave Sterling: 29; Blood Pressure: 124/74 [ECG DIAGNOSTIC STATEMENTS] Date of Test: 06/05/2015 12:21:26; Summary: Sinus Rhythm -Short MS syndrome Meagan = 114-RSR(V1) -nondiagnostic. -Left atrial enlargement. BORDERLINE [MEASUREMENTS ANALYSIS] Date of Test: 06/05/2015 12:20:37; Heart Rate: 57; MS Interval: 166; QRS: 104; QT Interval: 390; Corrected QT Interval (QTc): 385; P Wave Sterling: 48; QRS Wave Sterling: -8; T Wave Sterling: 30; Blood Pressure: 124/74 [ECG DIAGNOSTIC STATEMENTS] Date of Test: 06/05/2015 12:20:37; Summary: Sinus Bradycardia -RSR(V1) -nondiagnostic. PROBABLY NORMAL [employer] Phone: Comment on above: nsr no acute chg Start: 03-23-2014 End: 03-23-2014 Ecg routine ecg w/least 12 lds w/i&r [MEASUREMENTS ANALYSIS] Date of Test: 03/23/2014 10:39:33; Heart Rate: 68; MS Interval: 164; QRS: 108; QT Interval: 384; Corrected QT Interval (QTc): 398; P Wave Sterling: 43; QRS Wave Sterling: 11; T Wave Sterling: 26; Blood Pressure: 142/84 [ECG DIAGNOSTIC STATEMENTS] Date of Test: 03/23/2014 10:39:33; Summary: Sinus Rhythm WITHIN NORMAL LIMITS [employer] Phone: Comment on above: nsr no acute chg Extraction of cataract Izzy Marshall Comment on above: 02/20 Extraction of cataract Jasmi n Gravius Comment on above: 02/20 Extraction of cataract Jasmi n Gravius Comment on above: 02/20 Extraction of cataract Jasmi n Gravius Comment on above: 02/20 Extraction of cataract Ashle y Cross Comment on above: 02/20 Extraction of cataract Chance a Slarb Comment on above: 02/20 Extraction of cataract Benita Cuellar Comment on above: 02/20 Extraction of cataract Kitty Ramirez SULFIDE HEAD OPERATOR Extraction of cataract Chance a Slarb SULFIDE HEAD OPERATOR Extraction of cataract Jasmi n Gravius WARD MAID Extraction of cataract Jasmi n Gravius WARD MAID Extraction of cataract Kayel a Grapevine WARD MAID Extraction of cataract Kayel a Heena WARD MAID Extraction of cataract Kayel a [place]rapevine WARD MAID Extraction of cataract DARIO E Charly SULFIDE HEAD OPERATOR Respiratory Panel (PCR) Dr. Marci Rose Work Phone: Plan of Treatment Date Care Activity Detail Author Start: 09-05-2024 [facility] Start: 05-06-2024 Patient discharge [facility] Start: 2024 Following clinical pathway protocol [facility] Start: 2024 Assessment of risk o f venous thromboembolism [facility] Start: 2024 Insertion of cathete r into peripheral vein [facility] Start: 2024 Providing care accor ding to standard [facility] Start: 2024 Provision of activit y privileges [facility] Start: 2024 Referral to occupati onal therapist [facility] Start: 2024 Referral to service [facility] Start: 2024 [facility] Start: 2024 Admission procedure [facility] Start: 02-16-2024 [facility] Start: 02-16-2024 [facility] Start: 11-12-2022 Procedure [facility] Work Phone: Start: 11-12-2022 Provider Instruction s for Treatment [facility]; [facility] Work Phone: Start: 11-12-2022 Assay of prostate specific antigen total [facility]; [facility] Work Phone: Start: 09-10-2022 Procedure [facility]; [facility] Work Phone: Start: 06-15-2022 Assay of thyroid stimulating hormone tsh [facility]; [facility] Work Phone: Start: 05-11-2022 Procedure [facility]; [facility] Work Phone: Start: 05-11-2022 Provider Instruction s for Treatment [facility]; [facility] Work Phone: Start: 05-11-2022 25 hydroxy includes fractions if performed [facility]; [facility] Work Phone: Start: 05-11-2022 Urnls dip stick/tabl et reagent auto microscopy [facility]; [facility] Work Phone: Start: 05-11-2022 Urine albumin quantitative [facility]; [facility] Work Phone: Start: 05-11-2022 Comprehensive metabo lic panel [facility]; [facility] Work Phone: Start: 05-11-2022 Blood count complete auto&auto difrntl wbc [facility]; [facility] Work Phone: Start: 05-11-2022 Assay of thyroid stimulating hormone tsh [facility]; [facility] Work Phone: Start: 04-20-2022 Procedure [facility]; [facility] Work Phone: Start: 04-20-2022 Provider Instruction s for Treatment [facility]; [facility] Work Phone: Start: 03-12-2022 Patient discharge [facility] Work Phone: Start: 03-11-2022 Incentive spirometry [facility] Work Phone: Start: 03-11-2022 End: 03-11-2022 Respiratory secretion precautions [facility] Work Phone: Start: 03-11-2022 Following clinical pathway protocol [facility] Work Phone: Start: 03-11-2022 Assessment of risk o f venous thromboembolism [facility] Work Phone: Start: 03-11-2022 Inhalation therapy procedure [facility] Work Phone: Start: 03-11-2022 Insertion of cathete r into peripheral vein [facility] Work Phone: Start: 03-11-2022 Oxygen therapy [facility] Work Phone: Start: 03-11-2022 Physiotherapy of chest [facility] Work Phone: Start: 03-11-2022 Providing care accor ding to standard [facility] Work Phone: Start: 03-11-2022 Provision of activit y privileges [facility] Work Phone: Start: 03-10-2022 End: 03-11-2022 [facility] Work Phone: Start: 03-10-2022 Verification routine [facility] Work Phone: Start: 03-10-2022 Admission procedure [facility] Work Phone: Start: 03-10-2022 [facility] Work Phone: Start: 03-10-2022 Inhalation therapy procedure [facility] Work Phone: Start: 10-27-2021 Procedure [facility]; [facility] Work Phone: Start: 10-27-2021 Provider Instruction s for Treatment [facility]; [facility] Work Phone: Start: 10-27-2021 Assay of prostate specific antigen total [facility]; [facility] Work Phone: Start: 08-18-2021 Procedure [facility]; [facility] Work Phone: Start: 08-18-2021 Provider Instruction s for Treatment [facility]; [facility] Work Phone: Start: 04-18-2021 Procedure Education [facility]; [facility] Work Phone: Start: 04-18-2021 Provider Instruction s for Treatment [facility]; [facility] Work Phone: Start: 04-18-2021 25 hydroxy includes fractions if performed [facility]; [facility] Work Phone: Start: 04-18-2021 Assay of thyroid stimulating hormone tsh [facility]; [facility] Work Phone: Start: 04-18-2021 Urnls dip stick/tabl et reagent auto microscopy [facility]; [facility] Work Phone: Start: 04-18-2021 Urine albumin quantitative [facility]; [facility] Work Phone: Start: 04-18-2021 Comprehensive metabo lic panel [facility]; [facility] Work Phone: Start: 04-18-2021 Lipid panel [facility]; [facility] Work Phone: Start: 04-18-2021 Blood count complete auto&auto difrntl wbc [facility]; [facility] Work Phone: Start: 02-26-2021 Provider Instruction s for Treatment [facility]; [facility] Work Phone: Start: 02-07-2021 25 hydroxy includes fractions if performed [facility]; [facility] Work Phone: Start: 01-15-2021 Procedure Education [facility]; [facility] Work Phone: Start: 01-15-2021 Provider Instruction s for Treatment [facility]; [facility] Work Phone: Start: 10-24-2020 Procedure Education [facility]; [facility] Work Phone: Start: 10-24-2020 Provider Instruction s for Treatment [facility]; [facility] Work Phone: Start: 10-16-2020 Procedure Education [facility]; [facility] Work Phone: Start: 10-16-2020 Provider Instruction s for Treatment [facility]; [facility] Work Phone: Start: 03-06-2020 Procedure Education [facility]; [facility] Work Phone: Start: 03-06-2020 Provider Instruction s for Treatment [facility]; [facility] Work Phone: Start: 03-04-2020 Procedure Education [facility]; [facility] Work Phone: Start: 02-19-2020 Procedure Education [facility]; [facility] Work Phone: Start: 02-19-2020 Provider Instruction s for Treatment [facility]; [facility] Work Phone: Start: 02-14-2020 Urinalysis qual/semiquant except immunoassays [facility]; [facility] Work Phone: Start: 02-14-2020 25 hydroxy includes fractions if performed CALCIFEDIOL (93964) [facility]; [facility] Work Phone: Start: 02-14-2020 Comprehensive metabo lic panel METABOLIC PANEL, COMPREHENSIVE (20477) [facility]; [facility] Work Phone: Start: 02-14-2020 Lipoprotein blood qu an numbers & subclasses NMR Profile (41848) [facility]; [facility] Work Phone: Start: 02-14-2020 TSH Qn TSH (THYROID STIMULATING HORMONE) (79956) [facility]; [facility] Work Phone: Start: 02-14-2020 Urine albumin quantitative MICROALBUMIN: CREATININE RATIO (01057) AND (51065) [facility]; [facility] Work Phone: Start: 02-14-2020 CBC, PLATELETS & MAN UAL DIFF (47018) CBC, PLATELETS & MANUAL DIFF (10957) [facility]; [facility] Work Phone: Start: 08-18-2019 Procedure Education [facility] Work Phone: Start: 08-18-2019 Provider Instruction s for Treatment [facility] Work Phone: Start: 08-18-2019 TSH Qn TSH (07193) [facility] Work Phone: Start: 08-18-2019 Free T4 [Mass/Vol] T4, FREE (T HYROXINE) (76165) [facility] Work Phone: Start: 08-18-2019 Free T3 [Mass/Vol] T3, FREE (TRIDOTHYRONINE) (36099) [facility] Work Phone: Start: 02-09-2019 Procedure Education [facility] Work Phone: Start: 02-09-2019 Provider Instruction s for Treatment [facility] Work Phone: Start: 10-19-2018 Procedure Education [facility] Work Phone: Start: 10-19-2018 Provider Instruction s for Treatment [facility] Work Phone: Start: 10-12-2018 Nuclear Ab IF (S) [Titer] DANIKA (ANTINUCLEAR ANTIBODY) (91339) [facility] Work Phone: Start: 10-12-2018 Hla typing a/b/c sin gle antigen HLA-B27 ANTIGEN (27259) [facility] Work Phone: Start: 10-10-2018 Procedure Education [facility] Work Phone: Start: 10-10-2018 Provider Instruction s for Treatment [facility] Work Phone: Start: 10-10-2018 Assay of prostate specific antigen total PSA (PROSTATE SPECIFIC ANTIGEN) (V76.44) [facility] Work Phone: Start: 08-10-2018 Procedure Education [facility] Work Phone: Start: 08-10-2018 Provider Instruction s for Treatment [facility] Work Phone: Start: 08-10-2018 Basic metabolic pane l calcium total Metabolic Panel, Basic (53460) [facility] Work Phone: Start: 08-10-2018 Hepatic function panel HEPATIC FUNCTION PANEL (05779) [facility] Work Phone: Start: 08-03-2018 Comprehensive metabo lic panel Metabolic Panel, Comprehensive (82027) [facility] Work Phone: Start: 08-03-2018 Blood count manual c ell count each CBC WITH MANUAL DIFF (99342) [facility] Work Phone: Start: 08-03-2018 25 hydroxy includes fractions if performed CALCIFEDIOL (33033) [facility] Work Phone: Start: 08-03-2018 Urine albumin quantitative MICROALBUMIN: CREATININE RATIO (34580) AND (99811) [facility] Work Phone: Start: 08-03-2018 Lipoprotein blood qu an numbers & subclasses NMR Profile (46321) [facility] Work Phone: Start: 08-03-2018 TSH Qn TSH (36260) [facility] Work Phone: Start: 08-03-2018 Urinalysis qual/semiquant except immunoassays URINALYSIS (80784) [facility] Work Phone: Start: 02-07-2018 Provider Instruction s for Treatment [facility] Work Phone: Start: 10-06-2017 Provider Instruction s for Treatment [facility] Work Phone: Start: 06-03-2017 Provider Instruction s for Treatment [facility] Work Phone: Start: 02-24-2017 Provider Instruction s for Treatment [facility] Work Phone: Start: 10-21-2016 Provider Instruction s for Treatment [facility] Work Phone: Start: 07-21-2016 Provider Instruction s for Treatment [facility] Work Phone: Start: 12-23-2015 Provider Instruction s for Treatment [facility] Work Phone: Start: 10-03-2015 Procedure Education [facility] Work Phone: Start: 10-03-2015 Provider Instruction s for Treatment [facility] Work Phone: Start: 10-03-2015 Blood occult fecal h gb deter ia qual feces 1-3 [facility] Work Phone: Start: 09-05-2015 Procedure Education [facility] Work Phone: Start: 09-05-2015 Provider Instruction s for Treatment [facility] Work Phone: Start: 06-05-2015 Procedure Education [facility] Work Phone: Start: 06-05-2015 Provider Instruction s for Treatment [facility] Work Phone: Start: 06-05-2015 End: 06-05-2015 Ecg routine ecg w/least 12 lds w/i&r [facility]; [facility] Work Phone: Comment on above: nsr no acute chg Start: 03-06-2015 Patient Education [facility] Work Phone: Start: 03-06-2015 Provider Instruction s for Treatment [facility] Work Phone: Start: 11-27-2014 Procedure Education [facility] Work Phone: Start: 11-27-2014 Provider Instruction s for Treatment [facility] Work Phone: Start: 07-20-2014 Provider Instruction s for Treatment [facility] Work Phone: Start: 07-02-2014 Assay of thyroid stimulating hormone tsh TSH (83127) [facility]; [facility] Work Phone: Start: 07-02-2014 Thyrotropin Qn TSH (32890) [facility] Work Phone: Start: 07-02-2014 25 hydroxy includes fractions if performed [facility] Work Phone: Start: 07-02-2014 Lipid panel [facility] Work Phone: Start: 04-06-2014 Provider Instruction s for Treatment [facility] Work Phone: Start: 03-23-2014 Procedure Education [facility] Work Phone: Start: 03-23-2014 Provider Instruction s for Treatment [facility] Work Phone: Start: 06-10-2011 Provider Instruction s for Treatment [facility] Work Phone: Start: 05-27-2011 Provider Instruction s for Treatment [facility] Work Phone: Start: 01-20-2010 Provider Instruction s for Treatment [facility] Work Phone: Start: 01-16-2010 Provider Instruction s for Treatment [facility] Work Phone: Start: 12-16-2009 Provider Instruction s for Treatment [facility] Work Phone: Start: 06-06-2009 Provider Instruction s for Treatment [facility] Work Phone: Patient referral [facility] Work Phone: Respiratory Panel (PCR) Respirat ory Panel (PCR) [facility] Work Phone: Respiratory pathogen s DNA and RNA 12b panel - Unspecified specimen by MARIEL with probe detection [facility] Work Phone: [facility] Work Phone: [facility] Work Phone: [facility] Work Phone: [facility] Work Phone: [facility] Work Phone: [facility] Work Phone: [facility] Work Phone: [facility] Work Phone: [facility] Work Phone: [facility] Work Phone: [facility] Work Phone: [facility] Work Phone: [facility] Work Phone[facility] Work Phone: [facility] Work Phone: [facility] Work Phone: [facility] Work Phone: [facility] Work Phone: [facility] Work Phone: [facility] Work Phone[facility] Work Phone: [facility] Work Phone[facility] Work Phone: [facility] Work Phone: [facility]; [facility] Work Phone: [facility]; [facility] Work Phone: [facility]; [facility] Work Phone: [facility]; [facility] Work Phone: Immunizations Immunization Date Immunization Notes Care Provider [facility] 01-12-2022 influenza, injectabl e, quadrivalent, contains preservative Marci Rose DO Work Phone: [facility]; [facility] Work Phone: 01-12-2022 influenza, injectabl e, quadrivalent, preservative free Dr. Marci Rose Work Phone: [facility] 01-12-2022 influenza, seasonal, injectable Dr. Marci Rose Work Phone: [facility] Work Phone: 10-27-2021 pneumococcal polysaccharide vaccine, 23 valent Marci Rose DO Work Phone: [facility]; [facility] Work Phone: 01-07-2021 influenza, injectabl e, quadrivalent, preservative free Dr. Marci Rose Work Phone: [facility] 01-07-2021 influenza, seasonal, injectable [facility] Work Phone: 04-21-2020 Covid (Pfizer) [facility] 03-22-2020 Covid (Pfizer) [facility] 03-03-2020 influenza, injectabl e, quadrivalent, preservative free Dr. Marci Rose Work Phone: [facility] 03-03-2020 influenza, seasonal, injectable [facility] Work Phone: Payers Date Payer Category Payer Private Health Insurance [id number] 2024 Self-pay [id number] 2012 Medicare [id number] 2012 Medicare [id number] 2010 Private Health Insurance [id number] 2002 Unknown [id number] 1945 Unknown [id number] 2.16.84 [id number] Unknown Unknown [id number] 2.16.8 [id number] Unknown [id number] 2.16.8 [id number] Unknown [id number] 2.16.8 [id number] Unknown [id number] 2.16.8 [id number] Unknown [id number] 2.16.8 [id number] Unknown [id number] 2.16.8 [id number] Unknown [id number] 2.16.8 [id number] Unknown [id number] 2.16.8 [id number] Unknown [id number] 2.16.8 [id number] Unknown [id number] 2.16.8 [id number] Unknown [id number] 2.16.8 [id number] Unknown [id number] 2.16.8 [id number] Unknown [id number] 2.16.8 [id number] Unknown [id number] 2.16.8 [id number] Unknown [id number] 2.16.8 [id number] Social History Date Type Detail Facility Tobacco use: Former smoker [facility] Work Phone: Tobacco use: Tobacco use: [facility] Work Phone: Start: 03-10-2022 End: 03-10-2022 Tobacco smoking status IDIS Unknown if ever smoked [facility] Start: 03-02-2020 None [facility] Start: 03-02-2020 Alone [facility] Start: 03-02-2020 Non-smoker [facility] Start: 1945 Sex Assigned At Male [facility] Start: 05-17-2024 End: 09-05-2024 Tobacco smoking status NHIS Ex-smoker (finding) [facility] Start: 06-05-2024 Sex Male (finding) [facility] NEGATED: Highlighted rowStart: 11-03-2018 End: 11-03-2018 Alcohol use Alcohol use [facility] Work Phone: NEGATED: Highlighted rowStart: 11-03-2018 End: 11-03-2018 Details of drug misuse behavior Details of drug misuse behavior [facility] Work Phone: NEGATED: Highlighted rowStart: 11-03-2018 End: 11-03-2018 How many days of moderate to strenuous exercise, like a brisk walk, did you do in the last 7 days? How many days of moderate to strenuous exercise, like a brisk walk, did you do in the last 7 days? [facility] Work Phone: NEGATED: Highlighted rowStart: 11-03-2018 End: 11-03-2018 Assertion Never smoker [facility] Work Phone: Goals Date Patient Goal Desired Activity /State Functional Status Date Assessment Result Facility 05-06-2024 Functional status Ambulates [facility] Work Phone: 03-12-2022 Functional status Activity Abili ty Independent [facility] Work Phone: 10-10-2020 LP-IR Score <25 [facility]; [facility] Work Phone: 02-14-2020 LP-IR Score <25 [facility]; [facility] Work Phone: Comment on above: INSULIN RESISTANCE MARKER <--Insulin Sen sitive Insulin Resistant--> Percentile in Reference PopulationInsulin Resistance ScoreLP-IR Score Low 25th 50th 75th High <27 27 45 63 >63LP-IR Score is inaccurate if patient is non-fasting. .The LP-IR score is a laboratory developed index that has beenassociated with insulin resistance and diabetes risk and should beused as one component of a physician's clinical assessment. Test(s) 282567-CKN-T ; 015490-LKX-R; 016932-Sdozernnqdfku; 022721-Oamtwfnbtwa, Total; 393085-WFS-G (Total); 420500-Macrd LDL-P; 773329-VQK Size; 425105-BB-HM Scorewas developed and its performance characteristics determinedby [employer]. It has not been cleared or approved by the Foodand Drug Administration.PATIENT WAS FASTINGPERFORMED BY: BN [facility] [address] [id number] BY: CB [facility] [id number] [facility] [id number] 08-11-2019 LP-IR Score <25 [facility] Work Phone: Comment on above: INSULIN RESISTANCE MARKER <--Insulin Sen sitive Insulin Resistant--> Percentile in Reference PopulationInsulin Resistance ScoreLP-IR Score Low 25th 50th 75th High <27 27 45 63 >63LP-IR Score is inaccurate if patient is non-fasting. .The LP-IR score is a laboratory developed index that has beenassociated with insulin resistance and diabetes risk and should beused as one component of a physician's clinical assessment. Test(s) 321273-MEH-N ; 323502-ESP-U; 375194-TCD-R; 473384-Vyfbpcwuvcztc; 081145-Jdauvywbbsc, Total; 082450-DTE-Q (Total);484113-Ravox LDL-P; 657861-SNN Size; 596846-FM-BI Scorewas developed and its performance characteristics determinedby [employer]. It has not been cleared or approved by the Foodand Drug Administration.PATIENT WAS FASTINGPERFORMED BY: [email or web address] [id number] BY: [employer] [facility] [id number] 08-03-2018 LP-IR Score <25 [facility] Work Phone: Comment on above: INSULIN RESISTANCE MARKER <--Insulin Sen sitive Insulin Resistant--> Percentile in Reference PopulationInsulin Resistance ScoreLP-IR Score Low 25th 50th 75th High <27 27 45 63 >63LP-IR Score is inaccurate if patient is non-fasting. .The LP-IR score is a laboratory developed index that has beenassociated with insulin resistance and diabetes risk and should beused as one component of a physician's clinical assessment. TheLP-IR score listed above has not been cleared by the [place] Food andDrug Administration. PATIENT WAS FASTINGP ERFORMED BY: [employer] [id number] BY: [employer] [id number] [facility] [id number] 01-31-2018 LP-IR Score <25 [facility] Work Phone: Comment on above: INSULIN RESISTANCE MARKER <--Insulin Sen sitive Insulin Resistant--> Percentile in Reference PopulationInsulin Resistance ScoreLP-IR Score Low 25th 50th 75th High <27 27 45 63 >63LP-IR Score is inaccurate if patient is non-fasting. .The LP-IR score is a laboratory developed index that has beenassociated with insulin resistance and diabetes risk and should beused as one component of a physician's clinical assessment. TheLP-IR score listed above has not been cleared by the [place] Food andDrug Administration. PATIENT WAS FASTINGP ERFORMED BY: BN [facility] [id number] [facility] [id number] BY: CB [facility] [id number] [facility] [id number] Mental Status Date Assessment Result Facility 05-06-2024 Cognitive function Voice/Name [facility] Work Phone: 03-12-2022 Cognitive function Voice/Name [facility] Work Phone: Clinical Notes 2024 to 09-05-2024 Note Date & Type Note Facility 09-05-2024 Radiology Diagnostic study note [facility] Imaging Services [address] [place], [place] [id number] Chest PA and Lateral MR#: [id number] Acct: [id number] Name: SIERRA GARCÍA Rep #: [id number] : 1945 M 79 From: Joseph Ogden MD PCP: Dr. Marci Rose DO Status: RE G ER Study:Chest PA and Lateral Date of Exam: 09/05/24 Exam# [id number] Ordering Dr: Carmen Jacobo DO PROCEDURE: CHEST PA AND LATERAL 09/05/2024 REASON FOR EXAM: COUGH TECHNIQUE: CHEST PA AND LATERAL COMPARISON: 05/17/2024. FINDINGS: The heart is normal in size. The lungs are hypoaerated but clear. Scoliosis. RAD/Chest PA and Lateral IMPRESSION: NO ACUTE FINDINGS. Reading Location: [id number] CC: Dr. Marci Rose DO; Demetri Jacobo DO ~ Adjustment Clerk: Signed [facility] 05-06-2024 Note [facility] Medical Records Department [address] [place] [address] Discharge Summary 05/06/24 1014 MR#: [id number] Acct: [id number] Name: SIERRA GARCÍA Rep #: [id number] : 1945 79 From: Aime Sierra DO PCP: Dr. Marci Rose DO Status:ADM IN Location: [place] [address] Providers Date of Admission: 05/03/24 Date of Discharge: 05/06/24 Primary Care Physician: Dr. Marci Rose DO Reason For Visit: RAYMOND. UTI. Diagnosis Discharge Diagnosis (1) UTI (urinary tract infection): Status: Acute Code(s): N39.0 - Urinary tract infection, site not specified Plan #1 sepsis secondary to acute cystitis #2. Acute cystitis-continue IV ceftriaxone #3 acute kidney injury-BMP will be rechecked tomorrow #4 benign prostatic hypertrophy-patient is now on Flomax #5 hypothyroidism-patient is on Synthroid Total clinical time spent by myself addressing patient's medical issues, reviewing all of his data, and collaborating with patient's care team: 35 minutes Medications at Discharge Home Medications levothyroxine 50 mcg tablet 50 mcg PO DAILY thyroid 10/11/18 lisinopril 10 mg-hydrochlorothiazide 12.5 mg tablet 5 - 6.25 mg PO DAILY PRN blood pressure 10/11/18 paroxetine HCl 30 mg tablet 30 mg PO DAILY mental health 10/11/18 simvastatin 10 mg tablet 10 mg PO DAILY cholesterol 10/11/18 gabapentin 100 mg capsule 100 mg PO TID PRN pain 02/16/24 iveoe-6l-xzr-epa-fish oil-vit D3 350 mg-400 mg-1,000 unit capsule 1 cap PO DAILY supplement 02/16/24 cephalexin 500 mg tablet 500 mg PO BID #14 tabs 05/06/24 tamsulosin 0.4 mg capsule 0.8 mg (2 x 0.4 mg) PO DAILY@1730 #60 caps 05/06/24 Hospital Course Operations None Procedures None Summary of Care Provided Minutes Spent on Discharge: 31 Hospital Course: 79-year-old white male was seen in the emergency room at [facility] with generalized weakness, fatigue, and malaise. Patient also complains of leakage of urine, he states that occasionally he cannot make it to the bathroom and leaks urine. Workup in the emergency room included a CBC which showed an elevated white blood cell count of 14.9, lactic acid was elevated at 2.3, creatinine was elevated at 2.5 and BUN was 30. Urinalysis showed more than 100 white cells, 5- 10 RBCs and no bacteria. Chest x-ray showed no acute pathology. Patient was admitted to PCU for sepsis, urinary tract infection, and acute kidney injury, he was given IV antibiotics and fluids, labs were monitored. Urine culture resulted and showing presumptive E. coli and mixed gram-positive organisms. On 05/06/2024, patient was seen and examined: On examination he appeared in good health and spirits. Vital signs as documented. Skin warm and dry and without overt rashes. Neck without JVD, neck was supple, trachea midline, thyroid was normal. Lungs clear bilaterally, normal air movement was noted. Heart exam notable for regular rhythm, normal sounds and absence of murmurs, rubs or gallops. Abdomen unremarkable and without evidence of organomegaly, masses, or abdominal aortic enlargement. Bowel sounds are present, abdomen is not distended. Extremities nonedematous, no cyanosis was noted, no clubbing was noted. Neuro: Cranial nerves II through XII are grossly intact, no focal motor deficits were noted, sensation to light touch and pinprick intact, motor exam 5/5 throughout. Psych: Patient is alert and oriented x3, he does not appear anxious or depressed, he does not appear agitated. Patient was discharged home in stable condition on 05/06/2024 Weight / BMI Weight Weight: 77.7 kg Body Mass Index (BMI) 23.8 ABG / Lab / Microbiology Data 05/05/24 05:28 05/06/24 05:01 Laboratory: Laboratory Results - last 24 hr 05/06/24 05:01: Sodium 143, Potassium 3.6, Chloride Direct 111 H, Carbon Dioxide 19.5 L, Anion Gap 13, BUN 28 H, Creatinine 1.85 H, Estim Creat Clear Calc 35.61, Est GFR (MDRD) Non-Af 37 L, BUN/Creatinine Ratio 15.2, Glucose 99, Calcium 10.1 Microbiology: Microbiology 05/03/24 13:26 Urine, Clean Catch Urine Culture - Final Presumptive E. coli Mixed Gram Positive Organisms 05/03/24 13:26 Urine, Clean Catch Urine Culture - Final Mixed Gram Positive Organisms 05/03/24 13:00 Blood Culture (Wb) - Anticubital Right Blood Culture - Preliminary No growth in 48 hours. 05/03/24 12:27 Blood Culture (Wb) - Anticubital Left Blood Culture - Preliminary No growth in 48 hours. 05/03/24 13:00 Mucosa - Nose SARS-CoV-2, Influenza RSV (PCR) - Final D/C Instructions Discharge Diet: No restrictions Weight Bearing Status: Full weight bearing DC O2, CPAP, BIPAP Needs Home O2 Discharge instructions: No Meaningful Use Info Meaningful Use Meaningful Use Diagnoses (Choose all that apply): None applicable Ischemic Stroke Statin Dosing Therapy Reference: STATIN (more content not included)... [facility] 2024 Evaluation note Diagnosis Onset Date Resolution Acute kidney injury inactive Febru gilbert 2024 4:14pm BPH (benign prostatic hyperplasia) inactive May 03, 025 4:14pm Generalized weakness inactive uary 2024 4:14pm Lactic acidosis inactive 2024 4:14pm UTI (urinary tract infection) inactive May 03, 2 025 4:14pm [facility] Work Phone: Evaluation note* Diagnosis Onset Date Resolution Status Acute bronchospasm acute Acute respiratory failure with hypoxia acute Bronchitis acute Hypoxia acute Sinus tachycardia acute Tachypnea acute High blood pressure chronic [facility] Work Phone: Evaluation noteNo assessment information available [facility] Work Phone: Hospital Discharge instructionsAdditional Instructions Your x-ray did not show signs of pneumonia. Your pulmonary function test displays restrictive lung disease which is technically different from COPD and emphysema. You may use the nebulizer as directed to help with symptoms but please talk to your family doctor about a pulmonology referral to discuss further treatment options based on your underlying lung disorder. Please return to the ER should you have any further concernsWS[facility]: Instructions* Name Dates Details How to Access Health Informa tion Online using Patient Portal and 3rd [employer] Apps Indication:Non-smoker Start:06-Mar-2020 Instruction Type:Patient Education Patient Instructions Indication:Non-smoker Start:06-Mar-2020 Instruction Type:Provider Instructions for Treatment Patient Instructions Indication:Coronavirus infection Start:04-Mar-2020 Instruction Type:Provider Instructions for Treatment How to Access Health Informa tion Online using Patient Portal and 3rd [employer] Apps Indication:Coronavirus infection Start:04-Mar-2020 Instruction Type:Patient Education How to Access Health Informa tion Online using Patient Portal and [employer]rd [employer] Apps Indication:Non-smoker Start:19-Feb-2020 Instruction Type:Patient Education Patient Instructions Indication:Non-smoker Start:19-Feb-2020 Instruction Type:Provider Instructions for Treatment How to access health informa tion online Indication:Non-smoker Start:18-Aug-2019 Instruction Type:Patient Education How to access health informa tion online - Detail Indication:Non-smoker Start:18-Aug-2019 Instruction Type:Patient Education Patient Instructions Indication:Non-smoker Start:18-Aug-2019 Instruction Type:Provider Instructions for Treatment How to access health informa tion online Indication:Non-smoker Start:09-Feb-2019 Instruction Type:Patient Education How to access health informa tion online - Detail Indication:Non-smoker Start:09-Feb-2019 Instruction Type:Patient Education Patient Instructions Indication:Non-smoker Start:09-Feb-2019 Instruction Type:Provider Instructions for Treatment How to access health informa tion online Indication:BMI 22.0-22.9, adult Start:19-Oct-2018 Instruction Type:Patient Education How to access health informa tion online - Detail Indication:BMI 22.0-22.9, adult Start:19-Oct-2018 Instruction Type:Patient Education Patient Instructions Indication:BMI 22.0-22.9, adult Start:19-Oct-2018 Instruction Type:Provider Instructions for Treatment How to access health informa tion online Indication:Non-smoker Start:10-Oct-2018 Instruction Type:Patient Education How to access health informa tion online - Detail Indication:Non-smoker Start:10-Oct-2018 Instruction Type:Patient Education Patient Instructions Indication:Non-smoker Start:10-Oct-2018 Instruction Type:Provider Instructions for Treatment How to access health informa tion online Indication:BMI 22.0-22.9, adult Start:10-Aug-2018 Instruction Type:Patient Education How to access health informa tion online - Detail Indication:BMI 22.0-22.9, adult Start:10-Aug-2018 Instruction Type:Patient Education Patient Instructions Indication:BMI 22.0-22.9, adult Start:10-Aug-2018 Instruction Type:Provider Instructions for Treatment How to access health informa tion online Indication:Non-smoker Start:07-Feb-2018 Instruction Type:Patient Education How to access health informa tion online - Detail Indication:Non-smoker Start:07-Feb-2018 Instruction Type:Patient Education Patient Instructions Indication:Non-smoker Start:07-Feb-2018 Instruction Type:Provider Instructions for Treatment How to access health informa tion online Indication:Non-smoker Start:06-Oct-2017 Instruction Type:Patient Education Patient Instructions Indication:Non-smoker Start:06-Oct-2017 Instruction Type:Provider Instructions for Treatment How to access health informa tion online Indication:Non-smoker Start:03-Jun-2017 Instruction Type:Patient Education How to access health informa tion online - Detail Indication:Non-smoker Start:03-Jun-2017 Instruction Type:Patient Education Patient Instructions Indication:Non-smoker Start:03-Jun-2017 Instruction Type:Provider Instructions for Treatment How to access health informa tion online Indication:Non-smoker Start:24-Feb-2017 Instruction Type:Patient Education How to access health informa tion online - Detail Indication:Non-smoker Start:24-Feb-2017 Instruction Type:Patient Education Patient Instructions Indication:Non-smoker Start:24-Feb-2017 Instruction Type:Provider Instructions for Treatment How to access health informa tion online Indication:Non-smoker Start:21-Oct-2016 Instruction Type:Patient Education How to access health informa tion online - Detail Indication:Non-smoker Start:21-Oct-2016 Instruction Type:Patient Education Patient Instructions Indication:Non-smoker Start:21-Oct-2016 Instruction Type:Provider Instructions for Treatment How to access health informa tion online Indication:Non-smoker Start:21-Jul-2016 Instruction Type:Patient Education How to access health informa tion online - Detail Indication:Non-smoker Start:21-Jul-2016 Instruction Type:Patient Education Patient Instructions Indication:Non-smoker Start:21-Jul-2016 Instruction Type:Provider Instructions for Treatment How to access health informa tion online Indication:Hypercholesteremia Start:23-Dec-2015 Instruction Type:Patient Education How to access health informa tion online - Detail Indication:Hypercholesteremia Start:23-Dec-2015 Instruction Type:Patient Education Patient Instructions Indication:Hypercholesteremia Start:23-Dec-2015 Instruction Type:Provider Instructions for Treatment How to access health informa tion online Indication:Encounter for Medicare annual wellness exam Start:03-Oct-2015 Instruction Type:Patient Education How to access health informa tion online - Detail Indication:Encounter for Medicare annual wellness exam Start:03-Oct-2015 Instruction Type:Patient Education Patient Instructions Indication:Encounter for Medicare annual wellness exam Start:03-Oct-2015 Instruction Type:Provider Instructions for Treatment How to access health informa tion online Indication:Hypercholesteremia Start:05-Sep-2015 Instruction Type:Patient Education How to access health informa tion online - Detail Indication:Hypercholesteremia Start:05-Sep-2015 Instruction Type:Patient Education Patient Instructions Indication:Hypercholesteremia Start:05-Sep-2015 Instruction Type:Provider Instructions for Treatment How to access health informa tion online Indication:Vitamin D deficiency Start:05-Jun-2015 Instruction Type:Patient Education How to access health informa tion online - Detail Indication:Vitamin D deficiency Start:05-Jun-2015 Instruction Type:Patient Education Patient Instructions Indication:Vitamin D deficiency Start:05-Jun-2015 Instruction Type:Provider Instructions for Treatment How to access health informa tion online Indication:Hypercholesteremia Start:06-Mar-2015 Instruction Type:Patient Education How to access health informa tion online - Detail Indication:Hypercholesteremia Start:06-Mar-2015 Instruction Type:Patient Education Patient Instructions Indication:Hypercholesteremia Start:06-Mar-2015 Instruction Type:Provider Instructions for Treatment How to access health informa tion online Indication:Depressive disorder Start:27-Nov-2014 Instruction Type:Patient Education How to access health informa tion online - Detail Indication:Depressive disorder Start:27-Nov-2014 Instruction Type:Patient Education Patient Instructions Indication:Depressive disorder Start:27-Nov-2014 Instruction Type:Provider Instructions for Treatment Patient Instructions Indication:Vitamin D deficiency Start:20-Jul-2014 Instruction Type:Provider Instructions for Treatment Patient Instructions Indication:Encounter for Medicare annual wellness exam Start:06-Apr-2014 Instruction Type:Provider Instructions for Treatment [facility]; [facility] Work Phone: Instructions* Name Dates Details Patient Instructions Indication:Non-smoker Start:15-Jan-2021 Instruction Type:Provider Instructions for Treatment How to Access Health Informa tion Online using Patient Portal and [employer]rd [employer] Apps Indication:Non-smoker Start:15-Jan-2021 Instruction Type:Patient Education Patient Instructions Indication:BMI 24.0-24.9, adult Start:24-Oct-2020 Instruction Type:Provider Instructions for Treatment How to Access Health Informa tion Online using Patient Portal and [employer]rd [employer] Apps Indication:BMI 24.0-24.9, adult Start:24-Oct-2020 Instruction Type:Patient Education Patient Instructions Indication:Non-smoker Start:16-Oct-2020 Instruction Type:Provider Instructions for Treatment How to Access Health Informa tion Online using Patient Portal and [employer]rd [employer] Apps Indication:Non-smoker Start:16-Oct-2020 Instruction Type:Patient Education How to Access Health Informa tion Online using Patient Portal and [employer]rd [employer] Apps Indication:Non-smoker Start:06-Mar-2020 Instruction Type:Patient Education Patient Instructions Indication:Non-smoker Start:06-Mar-2020 Instruction Type:Provider Instructions for Treatment Patient Instructions Indication:Coronavirus infection Start:04-Mar-2020 Instruction Type:Provider Instructions for Treatment How to Access Health Informa tion Online using Patient Portal and [employer]rd [employer] Apps Indication:Coronavirus infection Start:04-Mar-2020 Instruction Type:Patient Education How to Access Health Informa tion Online using Patient Portal and [employer]rd [employer] Apps Indication:Non-smoker Start:19-Feb-2020 Instruction Type:Patient Education Patient Instructions Indication:Non-smoker Start:19-Feb-2020 Instruction Type:Provider Instructions for Treatment How to access health informa tion online Indication:Non-smoker Start:18-Aug-2019 Instruction Type:Patient Education How to access health informa tion online - Detail Indication:Non-smoker Start:18-Aug-2019 Instruction Type:Patient Education Patient Instructions Indication:Non-smoker Start:18-Aug-2019 Instruction Type:Provider Instructions for Treatment How to access health informa tion online Indication:Non-smoker Start:09-Feb-2019 Instruction Type:Patient Education How to access health informa tion online - Detail Indication:Non-smoker Start:09-Feb-2019 Instruction Type:Patient Education Patient Instructions Indication:Non-smoker Start:09-Feb-2019 Instruction Type:Provider Instructions for Treatment How to access health informa tion online Indication:BMI 22.0-22.9, adult Start:19-Oct-2018 Instruction Type:Patient Education How to access health informa tion online - Detail Indication:BMI 22.0-22.9, adult Start:19-Oct-2018 Instruction Type:Patient Education Patient Instructions Indication:BMI 22.0-22.9, adult Start:19-Oct-2018 Instruction Type:Provider Instructions for Treatment How to access health informa tion online Indication:Non-smoker Start:10-Oct-2018 Instruction Type:Patient Education How to access health informa tion online - Detail Indication:Non-smoker Start:10-Oct-2018 Instruction Type:Patient Education Patient Instructions Indication:Non-smoker Start:10-Oct-2018 Instruction Type:Provider Instructions for Treatment How to access health informa tion online Indication:BMI 22.0-22.9, adult Start:10-Aug-2018 Instruction Type:Patient Education How to access health informa tion online - Detail Indication:BMI 22.0-22.9, adult Start:10-Aug-2018 Instruction Type:Patient Education Patient Instructions Indication:BMI 22.0-22.9, adult Start:10-Aug-2018 Instruction Type:Provider Instructions for Treatment How to access health informa tion online Indication:Non-smoker Start:07-Feb-2018 Instruction Type:Patient Education How to access health informa tion online - Detail Indication:Non-smoker Start:07-Feb-2018 Instruction Type:Patient Education Patient Instructions Indication:Non-smoker Start:07-Feb-2018 Instruction Type:Provider Instructions for Treatment How to access health informa tion online Indication:Non-smoker Start:06-Oct-2017 Instruction Type:Patient Education Patient Instructions Indication:Non-smoker Start:06-Oct-2017 Instruction Type:Provider Instructions for Treatment How to access health informa tion online Indication:Non-smoker Start:03-Jun-2017 Instruction Type:Patient Education How to access health informa tion online - Detail Indication:Non-smoker Start:03-Jun-2017 Instruction Type:Patient Education Patient Instructions Indication:Non-smoker Start:03-Jun-2017 Instruction Type:Provider Instructions for Treatment How to access health informa tion online Indication:Non-smoker Start:24-Feb-2017 Instruction Type:Patient Education How to access health informa tion online - Detail Indication:Non-smoker Start:24-Feb-2017 Instruction Type:Patient Education Patient Instructions Indication:Non-smoker Start:24-Feb-2017 Instruction Type:Provider Instructions for Treatment How to access health informa tion online Indication:Non-smoker Start:21-Oct-2016 Instruction Type:Patient Education How to access health informa tion online - Detail Indication:Non-smoker Start:21-Oct-2016 Instruction Type:Patient Education Patient Instructions Indication:Non-smoker Start:21-Oct-2016 Instruction Type:Provider Instructions for Treatment How to access health informa tion online Indication:Non-smoker Start:21-Jul-2016 Instruction Type:Patient Education How to access health informa tion online - Detail Indication:Non-smoker Start:21-Jul-2016 Instruction Type:Patient Education Patient Instructions Indication:Non-smoker Start:21-Jul-2016 Instruction Type:Provider Instructions for Treatment How to access health informa tion online Indication:Hypercholesteremia Start:23-Dec-2015 Instruction Type:Patient Education How to access health informa tion online - Detail Indication:Hypercholesteremia Start:23-Dec-2015 Instruction Type:Patient Education Patient Instructions Indication:Hypercholesteremia Start:23-Dec-2015 Instruction Type:Provider Instructions for Treatment How to access health informa tion online Indication:Encounter for Medicare annual wellness exam Start:03-Oct-2015 Instruction Type:Patient Education How to access health informa tion online - Detail Indication:Encounter for Medicare annual wellness exam Start:03-Oct-2015 Instruction Type:Patient Education Patient Instructions Indication:Encounter for Medicare annual wellness exam Start:03-Oct-2015 Instruction Type:Provider Instructions for Treatment How to access health informa tion online Indication:Hypercholesteremia Start:05-Sep-2015 Instruction Type:Patient Education How to access health informa tion online - Detail Indication:Hypercholesteremia Start:05-Sep-2015 Instruction Type:Patient Education Patient Instructions Indication:Hypercholesteremia Start:05-Sep-2015 Instruction Type:Provider Instructions for Treatment How to access health informa tion online Indication:Vitamin D deficiency Start:05-Jun-2015 Instruction Type:Patient Education How to access health informa tion online - Detail Indication:Vitamin D deficiency Start:05-Jun-2015 Instruction Type:Patient Education Patient Instructions Indication:Vitamin D deficiency Start:05-Jun-2015 Instruction Type:Provider Instructions for Treatment How to access health informa tion online Indication:Hypercholesteremia Start:06-Mar-2015 Instruction Type:Patient Education How to access health informa tion online - Detail Indication:Hypercholesteremia Start:06-Mar-2015 Instruction Type:Patient Education Patient Instructions Indication:Hypercholesteremia Start:06-Mar-2015 Instruction Type:Provider Instructions for Treatment How to access health informa tion online Indication:Depressive disorder Start:27-Nov-2014 Instruction Type:Patient Education How to access health informa tion online - Detail Indication:Depressive disorder Start:27-Nov-2014 Instruction Type:Patient Education Patient Instructions Indication:Depressive disorder Start:27-Nov-2014 Instruction Type:Provider Instructions for Treatment Patient Instructions Indication:Vitamin D deficiency Start:20-Jul-2014 Instruction Type:Provider Instructions for Treatment Patient Instructions Indication:Encounter for Medicare annual wellness exam Start:06-Apr-2014 Instruction Type:Provider Instructions for Treatment [facility]; [facility] Work Phone: Instructions* Name Dates Details Patient Instructions Indication:BMI 23.0-23.9, adult Start:18-Apr-2021 Instruction Type:Provider Instructions for Treatment How to Access Health Informa tion Online using Patient Portal and [employer]rd [employer] Apps Indication:BMI 23.0-23.9, adult Start:18-Apr-2021 Instruction Type:Patient Education Patient Instructions Indication:Non-smoker Start:15-Jan-2021 Instruction Type:Provider Instructions for Treatment How to Access Health Informa tion Online using Patient Portal and [employer]rd [employer] Apps Indication:Non-smoker Start:15-Jan-2021 Instruction Type:Patient Education Patient Instructions Indication:BMI 24.0-24.9, adult Start:24-Oct-2020 Instruction Type:Provider Instructions for Treatment How to Access Health Informa tion Online using Patient Portal and [employer]rd [employer] Apps Indication:BMI 24.0-24.9, adult Start:24-Oct-2020 Instruction Type:Patient Education Patient Instructions Indication:Non-smoker Start:16-Oct-2020 Instruction Type:Provider Instructions for Treatment How to Access Health Informa tion Online using Patient Portal and [employer]rd [employer] Apps Indication:Non-smoker Start:16-Oct-2020 Instruction Type:Patient Education How to Access Health Informa tion Online using Patient Portal and [employer]rd [employer] Apps Indication:Non-smoker Start:06-Mar-2020 Instruction Type:Patient Education Patient Instructions Indication:Non-smoker Start:06-Mar-2020 Instruction Type:Provider Instructions for Treatment Patient Instructions Indication:Coronavirus infection Start:04-Mar-2020 Instruction Type:Provider Instructions for Treatment How to Access Health Informa tion Online using Patient Portal and [employer]rd [employer] Apps Indication:Coronavirus infection Start:04-Mar-2020 Instruction Type:Patient Education How to Access Health Informa tion Online using Patient Portal and [employer]rd [employer] Apps Indication:Non-smoker Start:19-Feb-2020 Instruction Type:Patient Education Patient Instructions Indication:Non-smoker Start:19-Feb-2020 Instruction Type:Provider Instructions for Treatment How to access health informa tion online Indication:Non-smoker Start:18-Aug-2019 Instruction Type:Patient Education How to access health informa tion online - Detail Indication:Non-smoker Start:18-Aug-2019 Instruction Type:Patient Education Patient Instructions Indication:Non-smoker Start:18-Aug-2019 Instruction Type:Provider Instructions for Treatment How to access health informa tion online Indication:Non-smoker Start:09-Feb-2019 Instruction Type:Patient Education How to access health informa tion online - Detail Indication:Non-smoker Start:09-Feb-2019 Instruction Type:Patient Education Patient Instructions Indication:Non-smoker Start:09-Feb-2019 Instruction Type:Provider Instructions for Treatment How to access health informa tion online Indication:BMI 22.0-22.9, adult Start:19-Oct-2018 Instruction Type:Patient Education How to access health informa tion online - Detail Indication:BMI 22.0-22.9, adult Start:19-Oct-2018 Instruction Type:Patient Education Patient Instructions Indication:BMI 22.0-22.9, adult Start:19-Oct-2018 Instruction Type:Provider Instructions for Treatment How to access health informa tion online Indication:Non-smoker Start:10-Oct-2018 Instruction Type:Patient Education How to access health informa tion online - Detail Indication:Non-smoker Start:10-Oct-2018 Instruction Type:Patient Education Patient Instructions Indication:Non-smoker Start:10-Oct-2018 Instruction Type:Provider Instructions for Treatment How to access health informa tion online Indication:BMI 22.0-22.9, adult Start:10-Aug-2018 Instruction Type:Patient Education How to access health informa tion online - Detail Indication:BMI 22.0-22.9, adult Start:10-Aug-2018 Instruction Type:Patient Education Patient Instructions Indication:BMI 22.0-22.9, adult Start:10-Aug-2018 Instruction Type:Provider Instructions for Treatment How to access health informa tion online Indication:Non-smoker Start:07-Feb-2018 Instruction Type:Patient Education How to access health informa tion online - Detail Indication:Non-smoker Start:07-Feb-2018 Instruction Type:Patient Education Patient Instructions Indication:Non-smoker Start:07-Feb-2018 Instruction Type:Provider Instructions for Treatment How to access health informa tion online Indication:Non-smoker Start:06-Oct-2017 Instruction Type:Patient Education Patient Instructions Indication:Non-smoker Start:06-Oct-2017 Instruction Type:Provider Instructions for Treatment How to access health informa tion online Indication:Non-smoker Start:03-Jun-2017 Instruction Type:Patient Education How to access health informa tion online - Detail Indication:Non-smoker Start:03-Jun-2017 Instruction Type:Patient Education Patient Instructions Indication:Non-smoker Start:03-Jun-2017 Instruction Type:Provider Instructions for Treatment How to access health informa tion online Indication:Non-smoker Start:24-Feb-2017 Instruction Type:Patient Education How to access health informa tion online - Detail Indication:Non-smoker Start:24-Feb-2017 Instruction Type:Patient Education Patient Instructions Indication:Non-smoker Start:24-Feb-2017 Instruction Type:Provider Instructions for Treatment How to access health informa tion online Indication:Non-smoker Start:21-Oct-2016 Instruction Type:Patient Education How to access health informa tion online - Detail Indication:Non-smoker Start:21-Oct-2016 Instruction Type:Patient Education Patient Instructions Indication:Non-smoker Start:21-Oct-2016 Instruction Type:Provider Instructions for Treatment How to access health informa tion online Indication:Non-smoker Start:21-Jul-2016 Instruction Type:Patient Education How to access health informa tion online - Detail Indication:Non-smoker Start:21-Jul-2016 Instruction Type:Patient Education Patient Instructions Indication:Non-smoker Start:21-Jul-2016 Instruction Type:Provider Instructions for Treatment How to access health informa tion online Indication:Hypercholesteremia Start:23-Dec-2015 Instruction Type:Patient Education How to access health informa tion online - Detail Indication:Hypercholesteremia Start:23-Dec-2015 Instruction Type:Patient Education Patient Instructions Indication:Hypercholesteremia Start:23-Dec-2015 Instruction Type:Provider Instructions for Treatment How to access health informa tion online Indication:Encounter for Medicare annual wellness exam Start:03-Oct-2015 Instruction Type:Patient Education How to access health informa tion online - Detail Indication:Encounter for Medicare annual wellness exam Start:03-Oct-2015 Instruction Type:Patient Education Patient Instructions Indication:Encounter for Medicare annual wellness exam Start:03-Oct-2015 Instruction Type:Provider Instructions for Treatment How to access health informa tion online Indication:Hypercholesteremia Start:05-Sep-2015 Instruction Type:Patient Education How to access health informa tion online - Detail Indication:Hypercholesteremia Start:05-Sep-2015 Instruction Type:Patient Education Patient Instructions Indication:Hypercholesteremia Start:05-Sep-2015 Instruction Type:Provider Instructions for Treatment How to access health informa tion online Indication:Vitamin D deficiency Start:05-Jun-2015 Instruction Type:Patient Education How to access health informa tion online - Detail Indication:Vitamin D deficiency Start:05-Jun-2015 Instruction Type:Patient Education Patient Instructions Indication:Vitamin D deficiency Start:05-Jun-2015 Instruction Type:Provider Instructions for Treatment How to access health informa tion online Indication:Hypercholesteremia Start:06-Mar-2015 Instruction Type:Patient Education How to access health informa tion online - Detail Indication:Hypercholesteremia Start:06-Mar-2015 Instruction Type:Patient Education Patient Instructions Indication:Hypercholesteremia Start:06-Mar-2015 Instruction Type:Provider Instructions for Treatment How to access health informa tion online Indication:Depressive disorder Start:27-Nov-2014 Instruction Type:Patient Education How to access health informa tion online - Detail Indication:Depressive disorder Start:27-Nov-2014 Instruction Type:Patient Education Patient Instructions Indication:Depressive disorder Start:27-Nov-2014 Instruction Type:Provider Instructions for Treatment Patient Instructions Indication:Vitamin D deficiency Start:20-Jul-2014 Instruction Type:Provider Instructions for Treatment Patient Instructions Indication:Encounter for Medicare annual wellness exam Start:06-Apr-2014 Instruction Type:Provider Instructions for Treatment [facility]; [facility] Work Phone: Instructions* Name Dates Details Patient Instructions Indication:Non-smoker Start:18-Aug-2021 Instruction Type:Provider Instructions for Treatment How to Access Health Informa tion Online using Patient Portal and [employer]rd [employer] Apps Indication:Non-smoker Start:18-Aug-2021 Instruction Type:Patient Education Patient Instructions Indication:BMI 23.0-23.9, adult Start:18-Apr-2021 Instruction Type:Provider Instructions for Treatment How to Access Health Informa tion Online using Patient Portal and [employer]rd [employer] Apps Indication:BMI 23.0-23.9, adult Start:18-Apr-2021 Instruction Type:Patient Education Patient Instructions Indication:Non-smoker Start:15-Jan-2021 Instruction Type:Provider Instructions for Treatment How to Access Health Informa tion Online using Patient Portal and [employer]rd [employer] Apps Indication:Non-smoker Start:15-Jan-2021 Instruction Type:Patient Education Patient Instructions Indication:BMI 24.0-24.9, adult Start:24-Oct-2020 Instruction Type:Provider Instructions for Treatment How to Access Health Informa tion Online using Patient Portal and [employer]rd [employer] Apps Indication:BMI 24.0-24.9, adult Start:24-Oct-2020 Instruction Type:Patient Education Patient Instructions Indication:Non-smoker Start:16-Oct-2020 Instruction Type:Provider Instructions for Treatment How to Access Health Informa tion Online using Patient Portal and [employer]rd [employer] Apps Indication:Non-smoker Start:16-Oct-2020 Instruction Type:Patient Education How to Access Health Informa tion Online using Patient Portal and [employer]rd [employer] Apps Indication:Non-smoker Start:06-Mar-2020 Instruction Type:Patient Education Patient Instructions Indication:Non-smoker Start:06-Mar-2020 Instruction Type:Provider Instructions for Treatment Patient Instructions Indication:Coronavirus infection Start:04-Mar-2020 Instruction Type:Provider Instructions for Treatment How to Access Health Informa tion Online using Patient Portal and [employer]rd [employer] Apps Indication:Coronavirus infection Start:04-Mar-2020 Instruction Type:Patient Education How to Access Health Informa tion Online using Patient Portal and [employer]rd [employer] Apps Indication:Non-smoker Start:19-Feb-2020 Instruction Type:Patient Education Patient Instructions Indication:Non-smoker Start:19-Feb-2020 Instruction Type:Provider Instructions for Treatment How to access health informa tion online Indication:Non-smoker Start:18-Aug-2019 Instruction Type:Patient Education How to access health informa tion online - Detail Indication:Non-smoker Start:18-Aug-2019 Instruction Type:Patient Education Patient Instructions Indication:Non-smoker Start:18-Aug-2019 Instruction Type:Provider Instructions for Treatment How to access health informa tion online Indication:Non-smoker Start:09-Feb-2019 Instruction Type:Patient Education How to access health informa tion online - Detail Indication:Non-smoker Start:09-Feb-2019 Instruction Type:Patient Education Patient Instructions Indication:Non-smoker Start:09-Feb-2019 Instruction Type:Provider Instructions for Treatment How to access health informa tion online Indication:BMI 22.0-22.9, adult Start:19-Oct-2018 Instruction Type:Patient Education How to access health informa tion online - Detail Indication:BMI 22.0-22.9, adult Start:19-Oct-2018 Instruction Type:Patient Education Patient Instructions Indication:BMI 22.0-22.9, adult Start:19-Oct-2018 Instruction Type:Provider Instructions for Treatment How to access health informa tion online Indication:Non-smoker Start:10-Oct-2018 Instruction Type:Patient Education How to access health informa tion online - Detail Indication:Non-smoker Start:10-Oct-2018 Instruction Type:Patient Education Patient Instructions Indication:Non-smoker Start:10-Oct-2018 Instruction Type:Provider Instructions for Treatment How to access health informa tion online Indication:BMI 22.0-22.9, adult Start:10-Aug-2018 Instruction Type:Patient Education How to access health informa tion online - Detail Indication:BMI 22.0-22.9, adult Start:10-Aug-2018 Instruction Type:Patient Education Patient Instructions Indication:BMI 22.0-22.9, adult Start:10-Aug-2018 Instruction Type:Provider Instructions for Treatment How to access health informa tion online Indication:Non-smoker Start:07-Feb-2018 Instruction Type:Patient Education How to access health informa tion online - Detail Indication:Non-smoker Start:07-Feb-2018 Instruction Type:Patient Education Patient Instructions Indication:Non-smoker Start:07-Feb-2018 Instruction Type:Provider Instructions for Treatment How to access health informa tion online Indication:Non-smoker Start:06-Oct-2017 Instruction Type:Patient Education Patient Instructions Indication:Non-smoker Start:06-Oct-2017 Instruction Type:Provider Instructions for Treatment How to access health informa tion online Indication:Non-smoker Start:03-Jun-2017 Instruction Type:Patient Education How to access health informa tion online - Detail Indication:Non-smoker Start:03-Jun-2017 Instruction Type:Patient Education Patient Instructions Indication:Non-smoker Start:03-Jun-2017 Instruction Type:Provider Instructions for Treatment How to access health informa tion online Indication:Non-smoker Start:24-Feb-2017 Instruction Type:Patient Education How to access health informa tion online - Detail Indication:Non-smoker Start:24-Feb-2017 Instruction Type:Patient Education Patient Instructions Indication:Non-smoker Start:24-Feb-2017 Instruction Type:Provider Instructions for Treatment How to access health informa tion online Indication:Non-smoker Start:21-Oct-2016 Instruction Type:Patient Education How to access health informa tion online - Detail Indication:Non-smoker Start:21-Oct-2016 Instruction Type:Patient Education Patient Instructions Indication:Non-smoker Start:21-Oct-2016 Instruction Type:Provider Instructions for Treatment How to access health informa tion online Indication:Non-smoker Start:21-Jul-2016 Instruction Type:Patient Education How to access health informa tion online - Detail Indication:Non-smoker Start:21-Jul-2016 Instruction Type:Patient Education Patient Instructions Indication:Non-smoker Start:21-Jul-2016 Instruction Type:Provider Instructions for Treatment How to access health informa tion online Indication:Hypercholesteremia Start:23-Dec-2015 Instruction Type:Patient Education How to access health informa tion online - Detail Indication:Hypercholesteremia Start:23-Dec-2015 Instruction Type:Patient Education Patient Instructions Indication:Hypercholesteremia Start:23-Dec-2015 Instruction Type:Provider Instructions for Treatment How to access health informa tion online Indication:Encounter for Medicare annual wellness exam Start:03-Oct-2015 Instruction Type:Patient Education How to access health informa tion online - Detail Indication:Encounter for Medicare annual wellness exam Start:03-Oct-2015 Instruction Type:Patient Education Patient Instructions Indication:Encounter for Medicare annual wellness exam Start:03-Oct-2015 Instruction Type:Provider Instructions for Treatment How to access health informa tion online Indication:Hypercholesteremia Start:05-Sep-2015 Instruction Type:Patient Education How to access health informa tion online - Detail Indication:Hypercholesteremia Start:05-Sep-2015 Instruction Type:Patient Education Patient Instructions Indication:Hypercholesteremia Start:05-Sep-2015 Instruction Type:Provider Instructions for Treatment How to access health informa tion online Indication:Vitamin D deficiency Start:05-Jun-2015 Instruction Type:Patient Education How to access health informa tion online - Detail Indication:Vitamin D deficiency Start:05-Jun-2015 Instruction Type:Patient Education Patient Instructions Indication:Vitamin D deficiency Start:05-Jun-2015 Instruction Type:Provider Instructions for Treatment How to access health informa tion online Indication:Hypercholesteremia Start:06-Mar-2015 Instruction Type:Patient Education How to access health informa tion online - Detail Indication:Hypercholesteremia Start:06-Mar-2015 Instruction Type:Patient Education Patient Instructions Indication:Hypercholesteremia Start:06-Mar-2015 Instruction Type:Provider Instructions for Treatment How to access health informa tion online Indication:Depressive disorder Start:27-Nov-2014 Instruction Type:Patient Education How to access health informa tion online - Detail Indication:Depressive disorder Start:27-Nov-2014 Instruction Type:Patient Education Patient Instructions Indication:Depressive disorder Start:27-Nov-2014 Instruction Type:Provider Instructions for Treatment Patient Instructions Indication:Vitamin D deficiency Start:20-Jul-2014 Instruction Type:Provider Instructions for Treatment Patient Instructions Indication:Encounter for Medicare annual wellness exam Start:06-Apr-2014 Instruction Type:Provider Instructions for Treatment [facility]; [facility] Work Phone: Instructions* Name Dates Details Patient Instructions Indication:Non-smoker Start:27-Oct-2021 Instruction Type:Provider Instructions for Treatment How to Access Health Informa tion Online using Patient Portal and [employer]rd [employer] Apps Indication:Non-smoker Start:27-Oct-2021 Instruction Type:Patient Education Patient Instructions Indication:Non-smoker Start:18-Aug-2021 Instruction Type:Provider Instructions for Treatment How to Access Health Informa tion Online using Patient Portal and [employer]rd [employer] Apps Indication:Non-smoker Start:18-Aug-2021 Instruction Type:Patient Education Patient Instructions Indication:BMI 23.0-23.9, adult Start:18-Apr-2021 Instruction Type:Provider Instructions for Treatment How to Access Health Informa tion Online using Patient Portal and [employer]rd [employer] Apps Indication:BMI 23.0-23.9, adult Start:18-Apr-2021 Instruction Type:Patient Education Patient Instructions Indication:Non-smoker Start:15-Jan-2021 Instruction Type:Provider Instructions for Treatment How to Access Health Informa tion Online using Patient Portal and [employer]rd [employer] Apps Indication:Non-smoker Start:15-Jan-2021 Instruction Type:Patient Education Patient Instructions Indication:BMI 24.0-24.9, adult Start:24-Oct-2020 Instruction Type:Provider Instructions for Treatment How to Access Health Informa tion Online using Patient Portal and [employer]rd [employer] Apps Indication:BMI 24.0-24.9, adult Start:24-Oct-2020 Instruction Type:Patient Education Patient Instructions Indication:Non-smoker Start:16-Oct-2020 Instruction Type:Provider Instructions for Treatment How to Access Health Informa tion Online using Patient Portal and [employer]rd [employer] Apps Indication:Non-smoker Start:16-Oct-2020 Instruction Type:Patient Education How to Access Health Informa tion Online using Patient Portal and [employer]rd [employer] Apps Indication:Non-smoker Start:06-Mar-2020 Instruction Type:Patient Education Patient Instructions Indication:Non-smoker Start:06-Mar-2020 Instruction Type:Provider Instructions for Treatment Patient Instructions Indication:Coronavirus infection Start:04-Mar-2020 Instruction Type:Provider Instructions for Treatment How to Access Health Informa tion Online using Patient Portal and [employer]rd [employer] Apps Indication:Coronavirus infection Start:04-Mar-2020 Instruction Type:Patient Education How to Access Health Informa tion Online using Patient Portal and [employer]rd [employer] Apps Indication:Non-smoker Start:19-Feb-2020 Instruction Type:Patient Education Patient Instructions Indication:Non-smoker Start:19-Feb-2020 Instruction Type:Provider Instructions for Treatment How to access health informa tion online Indication:Non-smoker Start:18-Aug-2019 Instruction Type:Patient Education How to access health informa tion online - Detail Indication:Non-smoker Start:18-Aug-2019 Instruction Type:Patient Education Patient Instructions Indication:Non-smoker Start:18-Aug-2019 Instruction Type:Provider Instructions for Treatment How to access health informa tion online Indication:Non-smoker Start:09-Feb-2019 Instruction Type:Patient Education How to access health informa tion online - Detail Indication:Non-smoker Start:09-Feb-2019 Instruction Type:Patient Education Patient Instructions Indication:Non-smoker Start:09-Feb-2019 Instruction Type:Provider Instructions for Treatment How to access health informa tion online Indication:BMI 22.0-22.9, adult Start:19-Oct-2018 Instruction Type:Patient Education How to access health informa tion online - Detail Indication:BMI 22.0-22.9, adult Start:19-Oct-2018 Instruction Type:Patient Education Patient Instructions Indication:BMI 22.0-22.9, adult Start:19-Oct-2018 Instruction Type:Provider Instructions for Treatment How to access health informa tion online Indication:Non-smoker Start:10-Oct-2018 Instruction Type:Patient Education How to access health informa tion online - Detail Indication:Non-smoker Start:10-Oct-2018 Instruction Type:Patient Education Patient Instructions Indication:Non-smoker Start:10-Oct-2018 Instruction Type:Provider Instructions for Treatment How to access health informa tion online Indication:BMI 22.0-22.9, adult Start:10-Aug-2018 Instruction Type:Patient Education How to access health informa tion online - Detail Indication:BMI 22.0-22.9, adult Start:10-Aug-2018 Instruction Type:Patient Education Patient Instructions Indication:BMI 22.0-22.9, adult Start:10-Aug-2018 Instruction Type:Provider Instructions for Treatment How to access health informa tion online Indication:Non-smoker Start:07-Feb-2018 Instruction Type:Patient Education How to access health informa tion online - Detail Indication:Non-smoker Start:07-Feb-2018 Instruction Type:Patient Education Patient Instructions Indication:Non-smoker Start:07-Feb-2018 Instruction Type:Provider Instructions for Treatment How to access health informa tion online Indication:Non-smoker Start:06-Oct-2017 Instruction Type:Patient Education Patient Instructions Indication:Non-smoker Start:06-Oct-2017 Instruction Type:Provider Instructions for Treatment How to access health informa tion online Indication:Non-smoker Start:03-Jun-2017 Instruction Type:Patient Education How to access health informa tion online - Detail Indication:Non-smoker Start:03-Jun-2017 Instruction Type:Patient Education Patient Instructions Indication:Non-smoker Start:03-Jun-2017 Instruction Type:Provider Instructions for Treatment How to access health informa tion online Indication:Non-smoker Start:24-Feb-2017 Instruction Type:Patient Education How to access health informa tion online - Detail Indication:Non-smoker Start:24-Feb-2017 Instruction Type:Patient Education Patient Instructions Indication:Non-smoker Start:24-Feb-2017 Instruction Type:Provider Instructions for Treatment How to access health informa tion online Indication:Non-smoker Start:21-Oct-2016 Instruction Type:Patient Education How to access health informa tion online - Detail Indication:Non-smoker Start:21-Oct-2016 Instruction Type:Patient Education Patient Instructions Indication:Non-smoker Start:21-Oct-2016 Instruction Type:Provider Instructions for Treatment How to access health informa tion online Indication:Non-smoker Start:21-Jul-2016 Instruction Type:Patient Education How to access health informa tion online - Detail Indication:Non-smoker Start:21-Jul-2016 Instruction Type:Patient Education Patient Instructions Indication:Non-smoker Start:21-Jul-2016 Instruction Type:Provider Instructions for Treatment How to access health informa tion online Indication:Hypercholesteremia Start:23-Dec-2015 Instruction Type:Patient Education How to access health informa tion online - Detail Indication:Hypercholesteremia Start:23-Dec-2015 Instruction Type:Patient Education Patient Instructions Indication:Hypercholesteremia Start:23-Dec-2015 Instruction Type:Provider Instructions for Treatment How to access health informa tion online Indication:Encounter for Medicare annual wellness exam Start:03-Oct-2015 Instruction Type:Patient Education How to access health informa tion online - Detail Indication:Encounter for Medicare annual wellness exam Start:03-Oct-2015 Instruction Type:Patient Education Patient Instructions Indication:Encounter for Medicare annual wellness exam Start:03-Oct-2015 Instruction Type:Provider Instructions for Treatment How to access health informa tion online Indication:Hypercholesteremia Start:05-Sep-2015 Instruction Type:Patient Education How to access health informa tion online - Detail Indication:Hypercholesteremia Start:05-Sep-2015 Instruction Type:Patient Education Patient Instructions Indication:Hypercholesteremia Start:05-Sep-2015 Instruction Type:Provider Instructions for Treatment How to access health informa tion online Indication:Vitamin D deficiency Start:05-Jun-2015 Instruction Type:Patient Education How to access health informa tion online - Detail Indication:Vitamin D deficiency Start:05-Jun-2015 Instruction Type:Patient Education Patient Instructions Indication:Vitamin D deficiency Start:05-Jun-2015 Instruction Type:Provider Instructions for Treatment How to access health informa tion online Indication:Hypercholesteremia Start:06-Mar-2015 Instruction Type:Patient Education How to access health informa tion online - Detail Indication:Hypercholesteremia Start:06-Mar-2015 Instruction Type:Patient Education Patient Instructions Indication:Hypercholesteremia Start:06-Mar-2015 Instruction Type:Provider Instructions for Treatment How to access health informa tion online Indication:Depressive disorder Start:27-Nov-2014 Instruction Type:Patient Education How to access health informa tion online - Detail Indication:Depressive disorder Start:27-Nov-2014 Instruction Type:Patient Education Patient Instructions Indication:Depressive disorder Start:27-Nov-2014 Instruction Type:Provider Instructions for Treatment Patient Instructions Indication:Vitamin D deficiency Start:20-Jul-2014 Instruction Type:Provider Instructions for Treatment Patient Instructions Indication:Encounter for Medicare annual wellness exam Start:06-Apr-2014 Instruction Type:Provider Instructions for Treatment [facility]; [facility] Work Phone: Instructions* Name Dates Details Patient Instructions Indication:Non-smoker Start:27-Oct-2021 Instruction Type:Provider Instructions for Treatment How to Access Health Informa tion Online using Patient Portal and [employer]rd [employer] Apps Indication:Non-smoker Start:27-Oct-2021 Instruction Type:Patient Education Patient Instructions Indication:Non-smoker Start:18-Aug-2021 Instruction Type:Provider Instructions for Treatment How to Access Health Informa tion Online using Patient Portal and [employer]rd [employer] Apps Indication:Non-smoker Start:18-Aug-2021 Instruction Type:Patient Education Patient Instructions Indication:BMI 23.0-23.9, adult Start:18-Apr-2021 Instruction Type:Provider Instructions for Treatment How to Access Health Informa tion Online using Patient Portal and [employer]rd [employer] Apps Indication:BMI 23.0-23.9, adult Start:18-Apr-2021 Instruction Type:Patient Education Patient Instructions Indication:Non-smoker Start:15-Jan-2021 Instruction Type:Provider Instructions for Treatment How to Access Health Informa tion Online using Patient Portal and [employer]rd [employer] Apps Indication:Non-smoker Start:15-Jan-2021 Instruction Type:Patient Education Patient Instructions Indication:BMI 24.0-24.9, adult Start:24-Oct-2020 Instruction Type:Provider Instructions for Treatment How to Access Health Informa tion Online using Patient Portal and [employer]rd [employer] Apps Indication:BMI 24.0-24.9, adult Start:24-Oct-2020 Instruction Type:Patient Education Patient Instructions Indication:Non-smoker Start:16-Oct-2020 Instruction Type:Provider Instructions for Treatment How to Access Health Informa tion Online using Patient Portal and [employer]rd [employer] Apps Indication:Non-smoker Start:16-Oct-2020 Instruction Type:Patient Education How to Access Health Informa tion Online using Patient Portal and [employer]rd [employer] Apps Indication:Non-smoker Start:06-Mar-2020 Instruction Type:Patient Education Patient Instructions Indication:Non-smoker Start:06-Mar-2020 Instruction Type:Provider Instructions for Treatment Patient Instructions Indication:Coronavirus infection Start:04-Mar-2020 Instruction Type:Provider Instructions for Treatment How to Access Health Informa tion Online using Patient Portal and [employer]rd [employer] Apps Indication:Coronavirus infection Start:04-Mar-2020 Instruction Type:Patient Education How to Access Health Informa tion Online using Patient Portal and [employer]rd [employer] Apps Indication:Non-smoker Start:19-Feb-2020 Instruction Type:Patient Education Patient Instructions Indication:Non-smoker Start:19-Feb-2020 Instruction Type:Provider Instructions for Treatment How to access health informa tion online Indication:Non-smoker Start:18-Aug-2019 Instruction Type:Patient Education How to access health informa tion online - Detail Indication:Non-smoker Start:18-Aug-2019 Instruction Type:Patient Education Patient Instructions Indication:Non-smoker Start:18-Aug-2019 Instruction Type:Provider Instructions for Treatment How to access health informa tion online Indication:Non-smoker Start:09-Feb-2019 Instruction Type:Patient Education How to access health informa tion online - Detail Indication:Non-smoker Start:09-Feb-2019 Instruction Type:Patient Education Patient Instructions Indication:Non-smoker Start:09-Feb-2019 Instruction Type:Provider Instructions for Treatment How to access health informa tion online Indication:BMI 22.0-22.9, adult Start:19-Oct-2018 Instruction Type:Patient Education How to access health informa tion online - Detail Indication:BMI 22.0-22.9, adult Start:19-Oct-2018 Instruction Type:Patient Education Patient Instructions Indication:BMI 22.0-22.9, adult Start:19-Oct-2018 Instruction Type:Provider Instructions for Treatment How to access health informa tion online Indication:Non-smoker Start:10-Oct-2018 Instruction Type:Patient Education How to access health informa tion online - Detail Indication:Non-smoker Start:10-Oct-2018 Instruction Type:Patient Education Patient Instructions Indication:Non-smoker Start:10-Oct-2018 Instruction Type:Provider Instructions for Treatment How to access health informa tion online Indication:BMI 22.0-22.9, adult Start:10-Aug-2018 Instruction Type:Patient Education How to access health informa tion online - Detail Indication:BMI 22.0-22.9, adult Start:10-Aug-2018 Instruction Type:Patient Education Patient Instructions Indication:BMI 22.0-22.9, adult Start:10-Aug-2018 Instruction Type:Provider Instructions for Treatment How to access health informa tion online Indication:Non-smoker Start:07-Feb-2018 Instruction Type:Patient Education How to access health informa tion online - Detail Indication:Non-smoker Start:07-Feb-2018 Instruction Type:Patient Education Patient Instructions Indication:Non-smoker Start:07-Feb-2018 Instruction Type:Provider Instructions for Treatment How to access health informa tion online Indication:Non-smoker Start:06-Oct-2017 Instruction Type:Patient Education Patient Instructions Indication:Non-smoker Start:06-Oct-2017 Instruction Type:Provider Instructions for Treatment How to access health informa tion online Indication:Non-smoker Start:03-Jun-2017 Instruction Type:Patient Education How to access health informa tion online - Detail Indication:Non-smoker Start:03-Jun-2017 Instruction Type:Patient Education Patient Instructions Indication:Non-smoker Start:03-Jun-2017 Instruction Type:Provider Instructions for Treatment How to access health informa tion online Indication:Non-smoker Start:24-Feb-2017 Instruction Type:Patient Education How to access health informa tion online - Detail Indication:Non-smoker Start:24-Feb-2017 Instruction Type:Patient Education Patient Instructions Indication:Non-smoker Start:24-Feb-2017 Instruction Type:Provider Instructions for Treatment How to access health informa tion online Indication:Non-smoker Start:21-Oct-2016 Instruction Type:Patient Education How to access health informa tion online - Detail Indication:Non-smoker Start:21-Oct-2016 Instruction Type:Patient Education Patient Instructions Indication:Non-smoker Start:21-Oct-2016 Instruction Type:Provider Instructions for Treatment How to access health informa tion online Indication:Non-smoker Start:21-Jul-2016 Instruction Type:Patient Education How to access health informa tion online - Detail Indication:Non-smoker Start:21-Jul-2016 Instruction Type:Patient Education Patient Instructions Indication:Non-smoker Start:21-Jul-2016 Instruction Type:Provider Instructions for Treatment How to access health informa tion online Indication:Hypercholesteremia Start:23-Dec-2015 Instruction Type:Patient Education How to access health informa tion online - Detail Indication:Hypercholesteremia Start:23-Dec-2015 Instruction Type:Patient Education Patient Instructions Indication:Hypercholesteremia Start:23-Dec-2015 Instruction Type:Provider Instructions for Treatment How to access health informa tion online Indication:Encounter for Medicare annual wellness exam Start:03-Oct-2015 Instruction Type:Patient Education How to access health informa tion online - Detail Indication:Encounter for Medicare annual wellness exam Start:03-Oct-2015 Instruction Type:Patient Education Patient Instructions Indication:Encounter for Medicare annual wellness exam Start:03-Oct-2015 Instruction Type:Provider Instructions for Treatment How to access health informa tion online Indication:Hypercholesteremia Start:05-Sep-2015 Instruction Type:Patient Education How to access health informa tion online - Detail Indication:Hypercholesteremia Start:05-Sep-2015 Instruction Type:Patient Education Patient Instructions Indication:Hypercholesteremia Start:05-Sep-2015 Instruction Type:Provider Instructions for Treatment How to access health informa tion online Indication:Vitamin D deficiency Start:05-Jun-2015 Instruction Type:Patient Education How to access health informa tion online - Detail Indication:Vitamin D deficiency Start:05-Jun-2015 Instruction Type:Patient Education Patient Instructions Indication:Vitamin D deficiency Start:05-Jun-2015 Instruction Type:Provider Instructions for Treatment How to access health informa tion online Indication:Hypercholesteremia Start:06-Mar-2015 Instruction Type:Patient Education How to access health informa tion online - Detail Indication:Hypercholesteremia Start:06-Mar-2015 Instruction Type:Patient Education Patient Instructions Indication:Hypercholesteremia Start:06-Mar-2015 Instruction Type:Provider Instructions for Treatment How to access health informa tion online Indication:Depressive disorder Start:27-Nov-2014 Instruction Type:Patient Education How to access health informa tion online - Detail Indication:Depressive disorder Start:27-Nov-2014 Instruction Type:Patient Education Patient Instructions Indication:Depressive disorder Start:27-Nov-2014 Instruction Type:Provider Instructions for Treatment Patient Instructions Indication:Vitamin D deficiency Start:20-Jul-2014 Instruction Type:Provider Instructions for Treatment Patient Instructions Indication:Encounter for Medicare annual wellness exam Start:06-Apr-2014 Instruction Type:Provider Instructions for Treatment [facility]; [facility] Work Phone: Instructions* Name Dates Details Patient Instructions Indication:Non-smoker Start:27-Oct-2021 Instruction Type:Provider Instructions for Treatment How to Access Health Informa tion Online using Patient Portal and [employer]rd [employer] Apps Indication:Non-smoker Start:27-Oct-2021 Instruction Type:Patient Education Patient Instructions Indication:Non-smoker Start:18-Aug-2021 Instruction Type:Provider Instructions for Treatment How to Access Health Informa tion Online using Patient Portal and [employer] Apps Indication:Non-smoker Start:18-Aug-2021 Instruction Type:Patient Education Patient Instructions Indication:BMI 23.0-23.9, adult Start:18-Apr-2021 Instruction Type:Provider Instructions for Treatment How to Access Health Informa tion Online using Patient Portal and [employer]rd [employer] Apps Indication:BMI 23.0-23.9, adult Start:18-Apr-2021 Instruction Type:Patient Education Patient Instructions Indication:Non-smoker Start:15-Jan-2021 Instruction Type:Provider Instructions for Treatment How to Access Health Informa tion Online using Patient Portal and [employer]rd [employer] Apps Indication:Non-smoker Start:15-Jan-2021 Instruction Type:Patient Education Patient Instructions Indication:BMI 24.0-24.9, adult Start:24-Oct-2020 Instruction Type:Provider Instructions for Treatment How to Access Health Informa tion Online using Patient Portal and [employer]rd [employer] Apps Indication:BMI 24.0-24.9, adult Start:24-Oct-2020 Instruction Type:Patient Education Patient Instructions Indication:Non-smoker Start:16-Oct-2020 Instruction Type:Provider Instructions for Treatment How to Access Health Informa tion Online using Patient Portal and [employer]rd [employer] Apps Indication:Non-smoker Start:16-Oct-2020 Instruction Type:Patient Education How to Access Health Informa tion Online using Patient Portal and [employer]rd [employer] Apps Indication:Non-smoker Start:06-Mar-2020 Instruction Type:Patient Education Patient Instructions Indication:Non-smoker Start:06-Mar-2020 Instruction Type:Provider Instructions for Treatment Patient Instructions Indication:Coronavirus infection Start:04-Mar-2020 Instruction Type:Provider Instructions for Treatment How to Access Health Informa tion Online using Patient Portal and [employer]rd [employer] Apps Indication:Coronavirus infection Start:04-Mar-2020 Instruction Type:Patient Education How to Access Health Informa tion Online using Patient Portal and [employer]rd [employer] Apps Indication:Non-smoker Start:19-Feb-2020 Instruction Type:Patient Education Patient Instructions Indication:Non-smoker Start:19-Feb-2020 Instruction Type:Provider Instructions for Treatment How to access health informa tion online Indication:Non-smoker Start:18-Aug-2019 Instruction Type:Patient Education How to access health informa tion online - Detail Indication:Non-smoker Start:18-Aug-2019 Instruction Type:Patient Education Patient Instructions Indication:Non-smoker Start:18-Aug-2019 Instruction Type:Provider Instructions for Treatment How to access health informa tion online Indication:Non-smoker Start:09-Feb-2019 Instruction Type:Patient Education How to access health informa tion online - Detail Indication:Non-smoker Start:09-Feb-2019 Instruction Type:Patient Education Patient Instructions Indication:Non-smoker Start:09-Feb-2019 Instruction Type:Provider Instructions for Treatment How to access health informa tion online Indication:BMI 22.0-22.9, adult Start:19-Oct-2018 Instruction Type:Patient Education How to access health informa tion online - Detail Indication:BMI 22.0-22.9, adult Start:19-Oct-2018 Instruction Type:Patient Education Patient Instructions Indication:BMI 22.0-22.9, adult Start:19-Oct-2018 Instruction Type:Provider Instructions for Treatment How to access health informa tion online Indication:Non-smoker Start:10-Oct-2018 Instruction Type:Patient Education How to access health informa tion online - Detail Indication:Non-smoker Start:10-Oct-2018 Instruction Type:Patient Education Patient Instructions Indication:Non-smoker Start:10-Oct-2018 Instruction Type:Provider Instructions for Treatment How to access health informa tion online Indication:BMI 22.0-22.9, adult Start:10-Aug-2018 Instruction Type:Patient Education How to access health informa tion online - Detail Indication:BMI 22.0-22.9, adult Start:10-Aug-2018 Instruction Type:Patient Education Patient Instructions Indication:BMI 22.0-22.9, adult Start:10-Aug-2018 Instruction Type:Provider Instructions for Treatment How to access health informa tion online Indication:Non-smoker Start:07-Feb-2018 Instruction Type:Patient Education How to access health informa tion online - Detail Indication:Non-smoker Start:07-Feb-2018 Instruction Type:Patient Education Patient Instructions Indication:Non-smoker Start:07-Feb-2018 Instruction Type:Provider Instructions for Treatment How to access health informa tion online Indication:Non-smoker Start:06-Oct-2017 Instruction Type:Patient Education Patient Instructions Indication:Non-smoker Start:06-Oct-2017 Instruction Type:Provider Instructions for Treatment How to access health informa tion online Indication:Non-smoker Start:03-Jun-2017 Instruction Type:Patient Education How to access health informa tion online - Detail Indication:Non-smoker Start:03-Jun-2017 Instruction Type:Patient Education Patient Instructions Indication:Non-smoker Start:03-Jun-2017 Instruction Type:Provider Instructions for Treatment How to access health informa tion online Indication:Non-smoker Start:24-Feb-2017 Instruction Type:Patient Education How to access health informa tion online - Detail Indication:Non-smoker Start:24-Feb-2017 Instruction Type:Patient Education Patient Instructions Indication:Non-smoker Start:24-Feb-2017 Instruction Type:Provider Instructions for Treatment How to access health informa tion online Indication:Non-smoker Start:21-Oct-2016 Instruction Type:Patient Education How to access health informa tion online - Detail Indication:Non-smoker Start:21-Oct-2016 Instruction Type:Patient Education Patient Instructions Indication:Non-smoker Start:21-Oct-2016 Instruction Type:Provider Instructions for Treatment How to access health informa tion online Indication:Non-smoker Start:21-Jul-2016 Instruction Type:Patient Education How to access health informa tion online - Detail Indication:Non-smoker Start:21-Jul-2016 Instruction Type:Patient Education Patient Instructions Indication:Non-smoker Start:21-Jul-2016 Instruction Type:Provider Instructions for Treatment How to access health informa tion online Indication:Hypercholesteremia Start:23-Dec-2015 Instruction Type:Patient Education How to access health informa tion online - Detail Indication:Hypercholesteremia Start:23-Dec-2015 Instruction Type:Patient Education Patient Instructions Indication:Hypercholesteremia Start:23-Dec-2015 Instruction Type:Provider Instructions for Treatment How to access health informa tion online Indication:Encounter for Medicare annual wellness exam Start:03-Oct-2015 Instruction Type:Patient Education How to access health informa tion online - Detail Indication:Encounter for Medicare annual wellness exam Start:03-Oct-2015 Instruction Type:Patient Education Patient Instructions Indication:Encounter for Medicare annual wellness exam Start:03-Oct-2015 Instruction Type:Provider Instructions for Treatment How to access health informa tion online Indication:Hypercholesteremia Start:05-Sep-2015 Instruction Type:Patient Education How to access health informa tion online - Detail Indication:Hypercholesteremia Start:05-Sep-2015 Instruction Type:Patient Education Patient Instructions Indication:Hypercholesteremia Start:05-Sep-2015 Instruction Type:Provider Instructions for Treatment How to access health informa tion online Indication:Vitamin D deficiency Start:05-Jun-2015 Instruction Type:Patient Education How to access health informa tion online - Detail Indication:Vitamin D deficiency Start:05-Jun-2015 Instruction Type:Patient Education Patient Instructions Indication:Vitamin D deficiency Start:05-Jun-2015 Instruction Type:Provider Instructions for Treatment How to access health informa tion online Indication:Hypercholesteremia Start:06-Mar-2015 Instruction Type:Patient Education How to access health informa tion online - Detail Indication:Hypercholesteremia Start:06-Mar-2015 Instruction Type:Patient Education Patient Instructions Indication:Hypercholesteremia Start:06-Mar-2015 Instruction Type:Provider Instructions for Treatment How to access health informa tion online Indication:Depressive disorder Start:27-Nov-2014 Instruction Type:Patient Education How to access health informa tion online - Detail Indication:Depressive disorder Start:27-Nov-2014 Instruction Type:Patient Education Patient Instructions Indication:Depressive disorder Start:27-Nov-2014 Instruction Type:Provider Instructions for Treatment Patient Instructions Indication:Vitamin D deficiency Start:20-Jul-2014 Instruction Type:Provider Instructions for Treatment Patient Instructions Indication:Encounter for Medicare annual wellness exam Start:06-Apr-2014 Instruction Type:Provider Instructions for Treatment [facility]; [facility] Work Phone: Instructions* Name Dates Details Patient Instructions Indication:Non-smoker Start:27-Oct-2021 Instruction Type:Provider Instructions for Treatment How to Access Health Informa tion Online using Patient Portal and [employer]rd [employer] Apps Indication:Non-smoker Start:27-Oct-2021 Instruction Type:Patient Education Patient Instructions Indication:Non-smoker Start:18-Aug-2021 Instruction Type:Provider Instructions for Treatment How to Access Health Informa tion Online using Patient Portal and [employer]rd [employer] Apps Indication:Non-smoker Start:18-Aug-2021 Instruction Type:Patient Education Patient Instructions Indication:BMI 23.0-23.9, adult Start:18-Apr-2021 Instruction Type:Provider Instructions for Treatment How to Access Health Informa tion Online using Patient Portal and [employer] Apps Indication:BMI 23.0-23.9, adult Start:18-Apr-2021 Instruction Type:Patient Education Patient Instructions Indication:Non-smoker Start:15-Jan-2021 Instruction Type:Provider Instructions for Treatment How to Access Health Informa tion Online using Patient Portal and [employer] Apps Indication:Non-smoker Start:15-Jan-2021 Instruction Type:Patient Education Patient Instructions Indication:BMI 24.0-24.9, adult Start:24-Oct-2020 Instruction Type:Provider Instructions for Treatment How to Access Health Informa tion Online using Patient Portal and [employer]rd [employer] Apps Indication:BMI 24.0-24.9, adult Start:24-Oct-2020 Instruction Type:Patient Education Patient Instructions Indication:Non-smoker Start:16-Oct-2020 Instruction Type:Provider Instructions for Treatment How to Access Health Informa tion Online using Patient Portal and [employer] Apps Indication:Non-smoker Start:16-Oct-2020 Instruction Type:Patient Education How to Access Health Informa tion Online using Patient Portal and [employer] Apps Indication:Non-smoker Start:06-Mar-2020 Instruction Type:Patient Education Patient Instructions Indication:Non-smoker Start:06-Mar-2020 Instruction Type:Provider Instructions for Treatment Patient Instructions Indication:Coronavirus infection Start:04-Mar-2020 Instruction Type:Provider Instructions for Treatment How to Access Health Informa tion Online using Patient Portal and [employer] Apps Indication:Coronavirus infection Start:04-Mar-2020 Instruction Type:Patient Education How to Access Health Informa tion Online using Patient Portal and [employer] Apps Indication:Non-smoker Start:19-Feb-2020 Instruction Type:Patient Education Patient Instructions Indication:Non-smoker Start:19-Feb-2020 Instruction Type:Provider Instructions for Treatment How to access health informa tion online Indication:Non-smoker Start:18-Aug-2019 Instruction Type:Patient Education How to access health informa tion online - Detail Indication:Non-smoker Start:18-Aug-2019 Instruction Type:Patient Education Patient Instructions Indication:Non-smoker Start:18-Aug-2019 Instruction Type:Provider Instructions for Treatment How to access health informa tion online Indication:Non-smoker Start:09-Feb-2019 Instruction Type:Patient Education How to access health informa tion online - Detail Indication:Non-smoker Start:09-Feb-2019 Instruction Type:Patient Education Patient Instructions Indication:Non-smoker Start:09-Feb-2019 Instruction Type:Provider Instructions for Treatment How to access health informa tion online Indication:BMI 22.0-22.9, adult Start:19-Oct-2018 Instruction Type:Patient Education How to access health informa tion online - Detail Indication:BMI 22.0-22.9, adult Start:19-Oct-2018 Instruction Type:Patient Education Patient Instructions Indication:BMI 22.0-22.9, adult Start:19-Oct-2018 Instruction Type:Provider Instructions for Treatment How to access health informa tion online Indication:Non-smoker Start:10-Oct-2018 Instruction Type:Patient Education How to access health informa tion online - Detail Indication:Non-smoker Start:10-Oct-2018 Instruction Type:Patient Education Patient Instructions Indication:Non-smoker Start:10-Oct-2018 Instruction Type:Provider Instructions for Treatment How to access health informa tion online Indication:BMI 22.0-22.9, adult Start:10-Aug-2018 Instruction Type:Patient Education How to access health informa tion online - Detail Indication:BMI 22.0-22.9, adult Start:10-Aug-2018 Instruction Type:Patient Education Patient Instructions Indication:BMI 22.0-22.9, adult Start:10-Aug-2018 Instruction Type:Provider Instructions for Treatment How to access health informa tion online Indication:Non-smoker Start:07-Feb-2018 Instruction Type:Patient Education How to access health informa tion online - Detail Indication:Non-smoker Start:07-Feb-2018 Instruction Type:Patient Education Patient Instructions Indication:Non-smoker Start:07-Feb-2018 Instruction Type:Provider Instructions for Treatment How to access health informa tion online Indication:Non-smoker Start:06-Oct-2017 Instruction Type:Patient Education Patient Instructions Indication:Non-smoker Start:06-Oct-2017 Instruction Type:Provider Instructions for Treatment How to access health informa tion online Indication:Non-smoker Start:03-Jun-2017 Instruction Type:Patient Education How to access health informa tion online - Detail Indication:Non-smoker Start:03-Jun-2017 Instruction Type:Patient Education Patient Instructions Indication:Non-smoker Start:03-Jun-2017 Instruction Type:Provider Instructions for Treatment How to access health informa tion online Indication:Non-smoker Start:24-Feb-2017 Instruction Type:Patient Education How to access health informa tion online - Detail Indication:Non-smoker Start:24-Feb-2017 Instruction Type:Patient Education Patient Instructions Indication:Non-smoker Start:24-Feb-2017 Instruction Type:Provider Instructions for Treatment How to access health informa tion online Indication:Non-smoker Start:21-Oct-2016 Instruction Type:Patient Education How to access health informa tion online - Detail Indication:Non-smoker Start:21-Oct-2016 Instruction Type:Patient Education Patient Instructions Indication:Non-smoker Start:21-Oct-2016 Instruction Type:Provider Instructions for Treatment How to access health informa tion online Indication:Non-smoker Start:21-Jul-2016 Instruction Type:Patient Education How to access health informa tion online - Detail Indication:Non-smoker Start:21-Jul-2016 Instruction Type:Patient Education Patient Instructions Indication:Non-smoker Start:21-Jul-2016 Instruction Type:Provider Instructions for Treatment How to access health informa tion online Indication:Hypercholesteremia Start:23-Dec-2015 Instruction Type:Patient Education How to access health informa tion online - Detail Indication:Hypercholesteremia Start:23-Dec-2015 Instruction Type:Patient Education Patient Instructions Indication:Hypercholesteremia Start:23-Dec-2015 Instruction Type:Provider Instructions for Treatment How to access health informa tion online Indication:Encounter for Medicare annual wellness exam Start:03-Oct-2015 Instruction Type:Patient Education How to access health informa tion online - Detail Indication:Encounter for Medicare annual wellness exam Start:03-Oct-2015 Instruction Type:Patient Education Patient Instructions Indication:Encounter for Medicare annual wellness exam Start:03-Oct-2015 Instruction Type:Provider Instructions for Treatment How to access health informa tion online Indication:Hypercholesteremia Start:05-Sep-2015 Instruction Type:Patient Education How to access health informa tion online - Detail Indication:Hypercholesteremia Start:05-Sep-2015 Instruction Type:Patient Education Patient Instructions Indication:Hypercholesteremia Start:05-Sep-2015 Instruction Type:Provider Instructions for Treatment How to access health informa tion online Indication:Vitamin D deficiency Start:05-Jun-2015 Instruction Type:Patient Education How to access health informa tion online - Detail Indication:Vitamin D deficiency Start:05-Jun-2015 Instruction Type:Patient Education Patient Instructions Indication:Vitamin D deficiency Start:05-Jun-2015 Instruction Type:Provider Instructions for Treatment How to access health informa tion online Indication:Hypercholesteremia Start:06-Mar-2015 Instruction Type:Patient Education How to access health informa tion online - Detail Indication:Hypercholesteremia Start:06-Mar-2015 Instruction Type:Patient Education Patient Instructions Indication:Hypercholesteremia Start:06-Mar-2015 Instruction Type:Provider Instructions for Treatment How to access health informa tion online Indication:Depressive disorder Start:27-Nov-2014 Instruction Type:Patient Education How to access health informa tion online - Detail Indication:Depressive disorder Start:27-Nov-2014 Instruction Type:Patient Education Patient Instructions Indication:Depressive disorder Start:27-Nov-2014 Instruction Type:Provider Instructions for Treatment Patient Instructions Indication:Vitamin D deficiency Start:20-Jul-2014 Instruction Type:Provider Instructions for Treatment Patient Instructions Indication:Encounter for Medicare annual wellness exam Start:06-Apr-2014 Instruction Type:Provider Instructions for Treatment [facility]; [facility] Work Phone: Instructions* Name Dates Details Patient Instructions Indication:Non-smoker Start:27-Oct-2021 Instruction Type:Provider Instructions for Treatment How to Access Health Informa tion Online using Patient Portal and [employer]rd [employer] Apps Indication:Non-smoker Start:27-Oct-2021 Instruction Type:Patient Education Patient Instructions Indication:Non-smoker Start:18-Aug-2021 Instruction Type:Provider Instructions for Treatment How to Access Health Informa tion Online using Patient Portal and [employer]rd [employer] Apps Indication:Non-smoker Start:18-Aug-2021 Instruction Type:Patient Education Patient Instructions Indication:BMI 23.0-23.9, adult Start:18-Apr-2021 Instruction Type:Provider Instructions for Treatment How to Access Health Informa tion Online using Patient Portal and 3rd [employer] Apps Indication:BMI 23.0-23.9, adult Start:18-Apr-2021 Instruction Type:Patient Education Patient Instructions Indication:Non-smoker Start:15-Jan-2021 Instruction Type:Provider Instructions for Treatment How to Access Health Informa tion Online using Patient Portal and 3rd [employer] Apps Indication:Non-smoker Start:15-Jan-2021 Instruction Type:Patient Education Patient Instructions Indication:BMI 24.0-24.9, adult Start:24-Oct-2020 Instruction Type:Provider Instructions for Treatment How to Access Health Informa tion Online using Patient Portal and 3rd [employer] Apps Indication:BMI 24.0-24.9, adult Start:24-Oct-2020 Instruction Type:Patient Education Patient Instructions Indication:Non-smoker Start:16-Oct-2020 Instruction Type:Provider Instructions for Treatment How to Access Health Informa tion Online using Patient Portal and [employer]rd [employer] Apps Indication:Non-smoker Start:16-Oct-2020 Instruction Type:Patient Education How to Access Health Informa tion Online using Patient Portal and [employer]rd [employer] Apps Indication:Non-smoker Start:06-Mar-2020 Instruction Type:Patient Education Patient Instructions Indication:Non-smoker Start:06-Mar-2020 Instruction Type:Provider Instructions for Treatment Patient Instructions Indication:Coronavirus infection Start:04-Mar-2020 Instruction Type:Provider Instructions for Treatment How to Access Health Informa tion Online using Patient Portal and [employer]rd [employer] Apps Indication:Coronavirus infection Start:04-Mar-2020 Instruction Type:Patient Education How to Access Health Informa tion Online using Patient Portal and [employer]rd [employer] Apps Indication:Non-smoker Start:19-Feb-2020 Instruction Type:Patient Education Patient Instructions Indication:Non-smoker Start:19-Feb-2020 Instruction Type:Provider Instructions for Treatment How to access health informa tion online Indication:Non-smoker Start:18-Aug-2019 Instruction Type:Patient Education How to access health informa tion online - Detail Indication:Non-smoker Start:18-Aug-2019 Instruction Type:Patient Education Patient Instructions Indication:Non-smoker Start:18-Aug-2019 Instruction Type:Provider Instructions for Treatment How to access health informa tion online Indication:Non-smoker Start:09-Feb-2019 Instruction Type:Patient Education How to access health informa tion online - Detail Indication:Non-smoker Start:09-Feb-2019 Instruction Type:Patient Education Patient Instructions Indication:Non-smoker Start:09-Feb-2019 Instruction Type:Provider Instructions for Treatment How to access health informa tion online Indication:BMI 22.0-22.9, adult Start:19-Oct-2018 Instruction Type:Patient Education How to access health informa tion online - Detail Indication:BMI 22.0-22.9, adult Start:19-Oct-2018 Instruction Type:Patient Education Patient Instructions Indication:BMI 22.0-22.9, adult Start:19-Oct-2018 Instruction Type:Provider Instructions for Treatment How to access health informa tion online Indication:Non-smoker Start:10-Oct-2018 Instruction Type:Patient Education How to access health informa tion online - Detail Indication:Non-smoker Start:10-Oct-2018 Instruction Type:Patient Education Patient Instructions Indication:Non-smoker Start:10-Oct-2018 Instruction Type:Provider Instructions for Treatment How to access health informa tion online Indication:BMI 22.0-22.9, adult Start:10-Aug-2018 Instruction Type:Patient Education How to access health informa tion online - Detail Indication:BMI 22.0-22.9, adult Start:10-Aug-2018 Instruction Type:Patient Education Patient Instructions Indication:BMI 22.0-22.9, adult Start:10-Aug-2018 Instruction Type:Provider Instructions for Treatment How to access health informa tion online Indication:Non-smoker Start:07-Feb-2018 Instruction Type:Patient Education How to access health informa tion online - Detail Indication:Non-smoker Start:07-Feb-2018 Instruction Type:Patient Education Patient Instructions Indication:Non-smoker Start:07-Feb-2018 Instruction Type:Provider Instructions for Treatment How to access health informa tion online Indication:Non-smoker Start:06-Oct-2017 Instruction Type:Patient Education Patient Instructions Indication:Non-smoker Start:06-Oct-2017 Instruction Type:Provider Instructions for Treatment How to access health informa tion online Indication:Non-smoker Start:03-Jun-2017 Instruction Type:Patient Education How to access health informa tion online - Detail Indication:Non-smoker Start:03-Jun-2017 Instruction Type:Patient Education Patient Instructions Indication:Non-smoker Start:03-Jun-2017 Instruction Type:Provider Instructions for Treatment How to access health informa tion online Indication:Non-smoker Start:24-Feb-2017 Instruction Type:Patient Education How to access health informa tion online - Detail Indication:Non-smoker Start:24-Feb-2017 Instruction Type:Patient Education Patient Instructions Indication:Non-smoker Start:24-Feb-2017 Instruction Type:Provider Instructions for Treatment How to access health informa tion online Indication:Non-smoker Start:21-Oct-2016 Instruction Type:Patient Education How to access health informa tion online - Detail Indication:Non-smoker Start:21-Oct-2016 Instruction Type:Patient Education Patient Instructions Indication:Non-smoker Start:21-Oct-2016 Instruction Type:Provider Instructions for Treatment How to access health informa tion online Indication:Non-smoker Start:21-Jul-2016 Instruction Type:Patient Education How to access health informa tion online - Detail Indication:Non-smoker Start:21-Jul-2016 Instruction Type:Patient Education Patient Instructions Indication:Non-smoker Start:21-Jul-2016 Instruction Type:Provider Instructions for Treatment How to access health informa tion online Indication:Hypercholesteremia Start:23-Dec-2015 Instruction Type:Patient Education How to access health informa tion online - Detail Indication:Hypercholesteremia Start:23-Dec-2015 Instruction Type:Patient Education Patient Instructions Indication:Hypercholesteremia Start:23-Dec-2015 Instruction Type:Provider Instructions for Treatment How to access health informa tion online Indication:Encounter for Medicare annual wellness exam Start:03-Oct-2015 Instruction Type:Patient Education How to access health informa tion online - Detail Indication:Encounter for Medicare annual wellness exam Start:03-Oct-2015 Instruction Type:Patient Education Patient Instructions Indication:Encounter for Medicare annual wellness exam Start:03-Oct-2015 Instruction Type:Provider Instructions for Treatment How to access health informa tion online Indication:Hypercholesteremia Start:05-Sep-2015 Instruction Type:Patient Education How to access health informa tion online - Detail Indication:Hypercholesteremia Start:05-Sep-2015 Instruction Type:Patient Education Patient Instructions Indication:Hypercholesteremia Start:05-Sep-2015 Instruction Type:Provider Instructions for Treatment How to access health informa tion online Indication:Vitamin D deficiency Start:05-Jun-2015 Instruction Type:Patient Education How to access health informa tion online - Detail Indication:Vitamin D deficiency Start:05-Jun-2015 Instruction Type:Patient Education Patient Instructions Indication:Vitamin D deficiency Start:05-Jun-2015 Instruction Type:Provider Instructions for Treatment How to access health informa tion online Indication:Hypercholesteremia Start:06-Mar-2015 Instruction Type:Patient Education How to access health informa tion online - Detail Indication:Hypercholesteremia Start:06-Mar-2015 Instruction Type:Patient Education Patient Instructions Indication:Hypercholesteremia Start:06-Mar-2015 Instruction Type:Provider Instructions for Treatment How to access health informa tion online Indication:Depressive disorder Start:27-Nov-2014 Instruction Type:Patient Education How to access health informa tion online - Detail Indication:Depressive disorder Start:27-Nov-2014 Instruction Type:Patient Education Patient Instructions Indication:Depressive disorder Start:27-Nov-2014 Instruction Type:Provider Instructions for Treatment Patient Instructions Indication:Vitamin D deficiency Start:20-Jul-2014 Instruction Type:Provider Instructions for Treatment Patient Instructions Indication:Encounter for Medicare annual wellness exam Start:06-Apr-2014 Instruction Type:Provider Instructions for Treatment [facility]; [facility] Work Phone: Instructions* Name Dates Details Patient Instructions Indication:BMI 24.0-24.9, adult Start:20-Apr-2022 Instruction Type:Provider Instructions for Treatment How to Access Health Informa tion Online using Patient Portal and [employer]rd [employer] Apps Indication:BMI 24.0-24.9, adult Start:20-Apr-2022 Instruction Type:Patient Education Patient Instructions Indication:Non-smoker Start:27-Oct-2021 Instruction Type:Provider Instructions for Treatment How to Access Health Informa tion Online using Patient Portal and [employer]rd [employer] Apps Indication:Non-smoker Start:27-Oct-2021 Instruction Type:Patient Education Patient Instructions Indication:Non-smoker Start:18-Aug-2021 Instruction Type:Provider Instructions for Treatment How to Access Health Informa tion Online using Patient Portal and [employer]rd [employer] Apps Indication:Non-smoker Start:18-Aug-2021 Instruction Type:Patient Education Patient Instructions Indication:BMI 23.0-23.9, adult Start:18-Apr-2021 Instruction Type:Provider Instructions for Treatment How to Access Health Informa tion Online using Patient Portal and [employer]rd [employer] Apps Indication:BMI 23.0-23.9, adult Start:18-Apr-2021 Instruction Type:Patient Education Patient Instructions Indication:Non-smoker Start:15-Jan-2021 Instruction Type:Provider Instructions for Treatment How to Access Health Informa tion Online using Patient Portal and [employer]rd [employer] Apps Indication:Non-smoker Start:15-Jan-2021 Instruction Type:Patient Education Patient Instructions Indication:BMI 24.0-24.9, adult Start:24-Oct-2020 Instruction Type:Provider Instructions for Treatment How to Access Health Informa tion Online using Patient Portal and [employer]rd [employer] Apps Indication:BMI 24.0-24.9, adult Start:24-Oct-2020 Instruction Type:Patient Education Patient Instructions Indication:Non-smoker Start:16-Oct-2020 Instruction Type:Provider Instructions for Treatment How to Access Health Informa tion Online using Patient Portal and [employer]rd [employer] Apps Indication:Non-smoker Start:16-Oct-2020 Instruction Type:Patient Education How to Access Health Informa tion Online using Patient Portal and [employer]rd [employer] Apps Indication:Non-smoker Start:06-Mar-2020 Instruction Type:Patient Education Patient Instructions Indication:Non-smoker Start:06-Mar-2020 Instruction Type:Provider Instructions for Treatment Patient Instructions Indication:Coronavirus infection Start:04-Mar-2020 Instruction Type:Provider Instructions for Treatment How to Access Health Informa tion Online using Patient Portal and [employer]rd [employer] Apps Indication:Coronavirus infection Start:04-Mar-2020 Instruction Type:Patient Education How to Access Health Informa tion Online using Patient Portal and [employer]rd [employer] Apps Indication:Non-smoker Start:19-Feb-2020 Instruction Type:Patient Education Patient Instructions Indication:Non-smoker Start:19-Feb-2020 Instruction Type:Provider Instructions for Treatment How to access health informa tion online Indication:Non-smoker Start:18-Aug-2019 Instruction Type:Patient Education How to access health informa tion online - Detail Indication:Non-smoker Start:18-Aug-2019 Instruction Type:Patient Education Patient Instructions Indication:Non-smoker Start:18-Aug-2019 Instruction Type:Provider Instructions for Treatment How to access health informa tion online Indication:Non-smoker Start:09-Feb-2019 Instruction Type:Patient Education How to access health informa tion online - Detail Indication:Non-smoker Start:09-Feb-2019 Instruction Type:Patient Education Patient Instructions Indication:Non-smoker Start:09-Feb-2019 Instruction Type:Provider Instructions for Treatment How to access health informa tion online Indication:BMI 22.0-22.9, adult Start:19-Oct-2018 Instruction Type:Patient Education How to access health informa tion online - Detail Indication:BMI 22.0-22.9, adult Start:19-Oct-2018 Instruction Type:Patient Education Patient Instructions Indication:BMI 22.0-22.9, adult Start:19-Oct-2018 Instruction Type:Provider Instructions for Treatment How to access health informa tion online Indication:Non-smoker Start:10-Oct-2018 Instruction Type:Patient Education How to access health informa tion online - Detail Indication:Non-smoker Start:10-Oct-2018 Instruction Type:Patient Education Patient Instructions Indication:Non-smoker Start:10-Oct-2018 Instruction Type:Provider Instructions for Treatment How to access health informa tion online Indication:BMI 22.0-22.9, adult Start:10-Aug-2018 Instruction Type:Patient Education How to access health informa tion online - Detail Indication:BMI 22.0-22.9, adult Start:10-Aug-2018 Instruction Type:Patient Education Patient Instructions Indication:BMI 22.0-22.9, adult Start:10-Aug-2018 Instruction Type:Provider Instructions for Treatment How to access health informa tion online Indication:Non-smoker Start:07-Feb-2018 Instruction Type:Patient Education How to access health informa tion online - Detail Indication:Non-smoker Start:07-Feb-2018 Instruction Type:Patient Education Patient Instructions Indication:Non-smoker Start:07-Feb-2018 Instruction Type:Provider Instructions for Treatment How to access health informa tion online Indication:Non-smoker Start:06-Oct-2017 Instruction Type:Patient Education Patient Instructions Indication:Non-smoker Start:06-Oct-2017 Instruction Type:Provider Instructions for Treatment How to access health informa tion online Indication:Non-smoker Start:03-Jun-2017 Instruction Type:Patient Education How to access health informa tion online - Detail Indication:Non-smoker Start:03-Jun-2017 Instruction Type:Patient Education Patient Instructions Indication:Non-smoker Start:03-Jun-2017 Instruction Type:Provider Instructions for Treatment How to access health informa tion online Indication:Non-smoker Start:24-Feb-2017 Instruction Type:Patient Education How to access health informa tion online - Detail Indication:Non-smoker Start:24-Feb-2017 Instruction Type:Patient Education Patient Instructions Indication:Non-smoker Start:24-Feb-2017 Instruction Type:Provider Instructions for Treatment How to access health informa tion online Indication:Non-smoker Start:21-Oct-2016 Instruction Type:Patient Education How to access health informa tion online - Detail Indication:Non-smoker Start:21-Oct-2016 Instruction Type:Patient Education Patient Instructions Indication:Non-smoker Start:21-Oct-2016 Instruction Type:Provider Instructions for Treatment How to access health informa tion online Indication:Non-smoker Start:21-Jul-2016 Instruction Type:Patient Education How to access health informa tion online - Detail Indication:Non-smoker Start:21-Jul-2016 Instruction Type:Patient Education Patient Instructions Indication:Non-smoker Start:21-Jul-2016 Instruction Type:Provider Instructions for Treatment How to access health informa tion online Indication:Hypercholesteremia Start:23-Dec-2015 Instruction Type:Patient Education How to access health informa tion online - Detail Indication:Hypercholesteremia Start:23-Dec-2015 Instruction Type:Patient Education Patient Instructions Indication:Hypercholesteremia Start:23-Dec-2015 Instruction Type:Provider Instructions for Treatment How to access health informa tion online Indication:Encounter for Medicare annual wellness exam Start:03-Oct-2015 Instruction Type:Patient Education How to access health informa tion online - Detail Indication:Encounter for Medicare annual wellness exam Start:03-Oct-2015 Instruction Type:Patient Education Patient Instructions Indication:Encounter for Medicare annual wellness exam Start:03-Oct-2015 Instruction Type:Provider Instructions for Treatment How to access health informa tion online Indication:Hypercholesteremia Start:05-Sep-2015 Instruction Type:Patient Education How to access health informa tion online - Detail Indication:Hypercholesteremia Start:05-Sep-2015 Instruction Type:Patient Education Patient Instructions Indication:Hypercholesteremia Start:05-Sep-2015 Instruction Type:Provider Instructions for Treatment How to access health informa tion online Indication:Vitamin D deficiency Start:05-Jun-2015 Instruction Type:Patient Education How to access health informa tion online - Detail Indication:Vitamin D deficiency Start:05-Jun-2015 Instruction Type:Patient Education Patient Instructions Indication:Vitamin D deficiency Start:05-Jun-2015 Instruction Type:Provider Instructions for Treatment How to access health informa tion online Indication:Hypercholesteremia Start:06-Mar-2015 Instruction Type:Patient Education How to access health informa tion online - Detail Indication:Hypercholesteremia Start:06-Mar-2015 Instruction Type:Patient Education Patient Instructions Indication:Hypercholesteremia Start:06-Mar-2015 Instruction Type:Provider Instructions for Treatment How to access health informa tion online Indication:Depressive disorder Start:27-Nov-2014 Instruction Type:Patient Education How to access health informa tion online - Detail Indication:Depressive disorder Start:27-Nov-2014 Instruction Type:Patient Education Patient Instructions Indication:Depressive disorder Start:27-Nov-2014 Instruction Type:Provider Instructions for Treatment Patient Instructions Indication:Vitamin D deficiency Start:20-Jul-2014 Instruction Type:Provider Instructions for Treatment Patient Instructions Indication:Encounter for Medicare annual wellness exam Start:06-Apr-2014 Instruction Type:Provider Instructions for Treatment [facility]; [facility] Work Phone: Instructions* Name Dates Details Patient Instructions Indication:BMI 24.0-24.9, adult Start:20-Apr-2022 Instruction Type:Provider Instructions for Treatment How to Access Health Informa tion Online using Patient Portal and [employer]rd [employer] Apps Indication:BMI 24.0-24.9, adult Start:20-Apr-2022 Instruction Type:Patient Education Patient Instructions Indication:Non-smoker Start:27-Oct-2021 Instruction Type:Provider Instructions for Treatment How to Access Health Informa tion Online using Patient Portal and [employer]rd [employer] Apps Indication:Non-smoker Start:27-Oct-2021 Instruction Type:Patient Education Patient Instructions Indication:Non-smoker Start:18-Aug-2021 Instruction Type:Provider Instructions for Treatment How to Access Health Informa tion Online using Patient Portal and [employer]rd [employer] Apps Indication:Non-smoker Start:18-Aug-2021 Instruction Type:Patient Education Patient Instructions Indication:BMI 23.0-23.9, adult Start:18-Apr-2021 Instruction Type:Provider Instructions for Treatment How to Access Health Informa tion Online using Patient Portal and [employer]rd [employer] Apps Indication:BMI 23.0-23.9, adult Start:18-Apr-2021 Instruction Type:Patient Education Patient Instructions Indication:Non-smoker Start:15-Jan-2021 Instruction Type:Provider Instructions for Treatment How to Access Health Informa tion Online using Patient Portal and [employer]rd [employer] Apps Indication:Non-smoker Start:15-Jan-2021 Instruction Type:Patient Education Patient Instructions Indication:BMI 24.0-24.9, adult Start:24-Oct-2020 Instruction Type:Provider Instructions for Treatment How to Access Health Informa tion Online using Patient Portal and [employer]rd [employer] Apps Indication:BMI 24.0-24.9, adult Start:24-Oct-2020 Instruction Type:Patient Education Patient Instructions Indication:Non-smoker Start:16-Oct-2020 Instruction Type:Provider Instructions for Treatment How to Access Health Informa tion Online using Patient Portal and [employer]rd [employer] Apps Indication:Non-smoker Start:16-Oct-2020 Instruction Type:Patient Education How to Access Health Informa tion Online using Patient Portal and [employer]rd [employer] Apps Indication:Non-smoker Start:06-Mar-2020 Instruction Type:Patient Education Patient Instructions Indication:Non-smoker Start:06-Mar-2020 Instruction Type:Provider Instructions for Treatment Patient Instructions Indication:Coronavirus infection Start:04-Mar-2020 Instruction Type:Provider Instructions for Treatment How to Access Health Informa tion Online using Patient Portal and [employer]rd [employer] Apps Indication:Coronavirus infection Start:04-Mar-2020 Instruction Type:Patient Education How to Access Health Informa tion Online using Patient Portal and [employer]rd [employer] Apps Indication:Non-smoker Start:19-Feb-2020 Instruction Type:Patient Education Patient Instructions Indication:Non-smoker Start:19-Feb-2020 Instruction Type:Provider Instructions for Treatment How to access health informa tion online Indication:Non-smoker Start:18-Aug-2019 Instruction Type:Patient Education How to access health informa tion online - Detail Indication:Non-smoker Start:18-Aug-2019 Instruction Type:Patient Education Patient Instructions Indication:Non-smoker Start:18-Aug-2019 Instruction Type:Provider Instructions for Treatment How to access health informa tion online Indication:Non-smoker Start:09-Feb-2019 Instruction Type:Patient Education How to access health informa tion online - Detail Indication:Non-smoker Start:09-Feb-2019 Instruction Type:Patient Education Patient Instructions Indication:Non-smoker Start:09-Feb-2019 Instruction Type:Provider Instructions for Treatment How to access health informa tion online Indication:BMI 22.0-22.9, adult Start:19-Oct-2018 Instruction Type:Patient Education How to access health informa tion online - Detail Indication:BMI 22.0-22.9, adult Start:19-Oct-2018 Instruction Type:Patient Education Patient Instructions Indication:BMI 22.0-22.9, adult Start:19-Oct-2018 Instruction Type:Provider Instructions for Treatment How to access health informa tion online Indication:Non-smoker Start:10-Oct-2018 Instruction Type:Patient Education How to access health informa tion online - Detail Indication:Non-smoker Start:10-Oct-2018 Instruction Type:Patient Education Patient Instructions Indication:Non-smoker Start:10-Oct-2018 Instruction Type:Provider Instructions for Treatment How to access health informa tion online Indication:BMI 22.0-22.9, adult Start:10-Aug-2018 Instruction Type:Patient Education How to access health informa tion online - Detail Indication:BMI 22.0-22.9, adult Start:10-Aug-2018 Instruction Type:Patient Education Patient Instructions Indication:BMI 22.0-22.9, adult Start:10-Aug-2018 Instruction Type:Provider Instructions for Treatment How to access health informa tion online Indication:Non-smoker Start:07-Feb-2018 Instruction Type:Patient Education How to access health informa tion online - Detail Indication:Non-smoker Start:07-Feb-2018 Instruction Type:Patient Education Patient Instructions Indication:Non-smoker Start:07-Feb-2018 Instruction Type:Provider Instructions for Treatment How to access health informa tion online Indication:Non-smoker Start:06-Oct-2017 Instruction Type:Patient Education Patient Instructions Indication:Non-smoker Start:06-Oct-2017 Instruction Type:Provider Instructions for Treatment How to access health informa tion online Indication:Non-smoker Start:03-Jun-2017 Instruction Type:Patient Education How to access health informa tion online - Detail Indication:Non-smoker Start:03-Jun-2017 Instruction Type:Patient Education Patient Instructions Indication:Non-smoker Start:03-Jun-2017 Instruction Type:Provider Instructions for Treatment How to access health informa tion online Indication:Non-smoker Start:24-Feb-2017 Instruction Type:Patient Education How to access health informa tion online - Detail Indication:Non-smoker Start:24-Feb-2017 Instruction Type:Patient Education Patient Instructions Indication:Non-smoker Start:24-Feb-2017 Instruction Type:Provider Instructions for Treatment How to access health informa tion online Indication:Non-smoker Start:21-Oct-2016 Instruction Type:Patient Education How to access health informa tion online - Detail Indication:Non-smoker Start:21-Oct-2016 Instruction Type:Patient Education Patient Instructions Indication:Non-smoker Start:21-Oct-2016 Instruction Type:Provider Instructions for Treatment How to access health informa tion online Indication:Non-smoker Start:21-Jul-2016 Instruction Type:Patient Education How to access health informa tion online - Detail Indication:Non-smoker Start:21-Jul-2016 Instruction Type:Patient Education Patient Instructions Indication:Non-smoker Start:21-Jul-2016 Instruction Type:Provider Instructions for Treatment How to access health informa tion online Indication:Hypercholesteremia Start:23-Dec-2015 Instruction Type:Patient Education How to access health informa tion online - Detail Indication:Hypercholesteremia Start:23-Dec-2015 Instruction Type:Patient Education Patient Instructions Indication:Hypercholesteremia Start:23-Dec-2015 Instruction Type:Provider Instructions for Treatment How to access health informa tion online Indication:Encounter for Medicare annual wellness exam Start:03-Oct-2015 Instruction Type:Patient Education How to access health informa tion online - Detail Indication:Encounter for Medicare annual wellness exam Start:03-Oct-2015 Instruction Type:Patient Education Patient Instructions Indication:Encounter for Medicare annual wellness exam Start:03-Oct-2015 Instruction Type:Provider Instructions for Treatment How to access health informa tion online Indication:Hypercholesteremia Start:05-Sep-2015 Instruction Type:Patient Education How to access health informa tion online - Detail Indication:Hypercholesteremia Start:05-Sep-2015 Instruction Type:Patient Education Patient Instructions Indication:Hypercholesteremia Start:05-Sep-2015 Instruction Type:Provider Instructions for Treatment How to access health informa tion online Indication:Vitamin D deficiency Start:05-Jun-2015 Instruction Type:Patient Education How to access health informa tion online - Detail Indication:Vitamin D deficiency Start:05-Jun-2015 Instruction Type:Patient Education Patient Instructions Indication:Vitamin D deficiency Start:05-Jun-2015 Instruction Type:Provider Instructions for Treatment How to access health informa tion online Indication:Hypercholesteremia Start:06-Mar-2015 Instruction Type:Patient Education How to access health informa tion online - Detail Indication:Hypercholesteremia Start:06-Mar-2015 Instruction Type:Patient Education Patient Instructions Indication:Hypercholesteremia Start:06-Mar-2015 Instruction Type:Provider Instructions for Treatment How to access health informa tion online Indication:Depressive disorder Start:27-Nov-2014 Instruction Type:Patient Education How to access health informa tion online - Detail Indication:Depressive disorder Start:27-Nov-2014 Instruction Type:Patient Education Patient Instructions Indication:Depressive disorder Start:27-Nov-2014 Instruction Type:Provider Instructions for Treatment Patient Instructions Indication:Vitamin D deficiency Start:20-Jul-2014 Instruction Type:Provider Instructions for Treatment Patient Instructions Indication:Encounter for Medicare annual wellness exam Start:06-Apr-2014 Instruction Type:Provider Instructions for Treatment [facility]; [facility] Work Phone: Instructions* Name Dates Details Patient Instructions Indication:BMI 24.0-24.9, adult Start:11-May-2022 Instruction Type:Provider Instructions for Treatment How to Access Health Informa tion Online using Patient Portal and [employer]rd [employer] Apps Indication:BMI 24.0-24.9, adult Start:11-May-2022 Instruction Type:Patient Education Patient Instructions Indication:BMI 24.0-24.9, adult Start:20-Apr-2022 Instruction Type:Provider Instructions for Treatment How to Access Health Informa tion Online using Patient Portal and [employer]rd [employer] Apps Indication:BMI 24.0-24.9, adult Start:20-Apr-2022 Instruction Type:Patient Education Patient Instructions Indication:Non-smoker Start:27-Oct-2021 Instruction Type:Provider Instructions for Treatment How to Access Health Informa tion Online using Patient Portal and [employer]rd [employer] Apps Indication:Non-smoker Start:27-Oct-2021 Instruction Type:Patient Education Patient Instructions Indication:Non-smoker Start:18-Aug-2021 Instruction Type:Provider Instructions for Treatment How to Access Health Informa tion Online using Patient Portal and [employer]rd [employer] Apps Indication:Non-smoker Start:18-Aug-2021 Instruction Type:Patient Education Patient Instructions Indication:BMI 23.0-23.9, adult Start:18-Apr-2021 Instruction Type:Provider Instructions for Treatment How to Access Health Informa tion Online using Patient Portal and [employer]rd [employer] Apps Indication:BMI 23.0-23.9, adult Start:18-Apr-2021 Instruction Type:Patient Education Patient Instructions Indication:Non-smoker Start:15-Jan-2021 Instruction Type:Provider Instructions for Treatment How to Access Health Informa tion Online using Patient Portal and [employer]rd [employer] Apps Indication:Non-smoker Start:15-Jan-2021 Instruction Type:Patient Education Patient Instructions Indication:BMI 24.0-24.9, adult Start:24-Oct-2020 Instruction Type:Provider Instructions for Treatment How to Access Health Informa tion Online using Patient Portal and [employer]rd [employer] Apps Indication:BMI 24.0-24.9, adult Start:24-Oct-2020 Instruction Type:Patient Education Patient Instructions Indication:Non-smoker Start:16-Oct-2020 Instruction Type:Provider Instructions for Treatment How to Access Health Informa tion Online using Patient Portal and [employer]rd [employer] Apps Indication:Non-smoker Start:16-Oct-2020 Instruction Type:Patient Education How to Access Health Informa tion Online using Patient Portal and [employer]rd [employer] Apps Indication:Non-smoker Start:06-Mar-2020 Instruction Type:Patient Education Patient Instructions Indication:Non-smoker Start:06-Mar-2020 Instruction Type:Provider Instructions for Treatment Patient Instructions Indication:Coronavirus infection Start:04-Mar-2020 Instruction Type:Provider Instructions for Treatment How to Access Health Informa tion Online using Patient Portal and [employer]rd [employer] Apps Indication:Coronavirus infection Start:04-Mar-2020 Instruction Type:Patient Education How to Access Health Informa tion Online using Patient Portal and [employer]rd [employer] Apps Indication:Non-smoker Start:19-Feb-2020 Instruction Type:Patient Education Patient Instructions Indication:Non-smoker Start:19-Feb-2020 Instruction Type:Provider Instructions for Treatment How to access health informa tion online Indication:Non-smoker Start:18-Aug-2019 Instruction Type:Patient Education How to access health informa tion online - Detail Indication:Non-smoker Start:18-Aug-2019 Instruction Type:Patient Education Patient Instructions Indication:Non-smoker Start:18-Aug-2019 Instruction Type:Provider Instructions for Treatment How to access health informa tion online Indication:Non-smoker Start:09-Feb-2019 Instruction Type:Patient Education How to access health informa tion online - Detail Indication:Non-smoker Start:09-Feb-2019 Instruction Type:Patient Education Patient Instructions Indication:Non-smoker Start:09-Feb-2019 Instruction Type:Provider Instructions for Treatment How to access health informa tion online Indication:BMI 22.0-22.9, adult Start:19-Oct-2018 Instruction Type:Patient Education How to access health informa tion online - Detail Indication:BMI 22.0-22.9, adult Start:19-Oct-2018 Instruction Type:Patient Education Patient Instructions Indication:BMI 22.0-22.9, adult Start:19-Oct-2018 Instruction Type:Provider Instructions for Treatment How to access health informa tion online Indication:Non-smoker Start:10-Oct-2018 Instruction Type:Patient Education How to access health informa tion online - Detail Indication:Non-smoker Start:10-Oct-2018 Instruction Type:Patient Education Patient Instructions Indication:Non-smoker Start:10-Oct-2018 Instruction Type:Provider Instructions for Treatment How to access health informa tion online Indication:BMI 22.0-22.9, adult Start:10-Aug-2018 Instruction Type:Patient Education How to access health informa tion online - Detail Indication:BMI 22.0-22.9, adult Start:10-Aug-2018 Instruction Type:Patient Education Patient Instructions Indication:BMI 22.0-22.9, adult Start:10-Aug-2018 Instruction Type:Provider Instructions for Treatment How to access health informa tion online Indication:Non-smoker Start:07-Feb-2018 Instruction Type:Patient Education How to access health informa tion online - Detail Indication:Non-smoker Start:07-Feb-2018 Instruction Type:Patient Education Patient Instructions Indication:Non-smoker Start:07-Feb-2018 Instruction Type:Provider Instructions for Treatment How to access health informa tion online Indication:Non-smoker Start:06-Oct-2017 Instruction Type:Patient Education Patient Instructions Indication:Non-smoker Start:06-Oct-2017 Instruction Type:Provider Instructions for Treatment How to access health informa tion online Indication:Non-smoker Start:03-Jun-2017 Instruction Type:Patient Education How to access health informa tion online - Detail Indication:Non-smoker Start:03-Jun-2017 Instruction Type:Patient Education Patient Instructions Indication:Non-smoker Start:03-Jun-2017 Instruction Type:Provider Instructions for Treatment How to access health informa tion online Indication:Non-smoker Start:24-Feb-2017 Instruction Type:Patient Education How to access health informa tion online - Detail Indication:Non-smoker Start:24-Feb-2017 Instruction Type:Patient Education Patient Instructions Indication:Non-smoker Start:24-Feb-2017 Instruction Type:Provider Instructions for Treatment How to access health informa tion online Indication:Non-smoker Start:21-Oct-2016 Instruction Type:Patient Education How to access health informa tion online - Detail Indication:Non-smoker Start:21-Oct-2016 Instruction Type:Patient Education Patient Instructions Indication:Non-smoker Start:21-Oct-2016 Instruction Type:Provider Instructions for Treatment How to access health informa tion online Indication:Non-smoker Start:21-Jul-2016 Instruction Type:Patient Education How to access health informa tion online - Detail Indication:Non-smoker Start:21-Jul-2016 Instruction Type:Patient Education Patient Instructions Indication:Non-smoker Start:21-Jul-2016 Instruction Type:Provider Instructions for Treatment How to access health informa tion online Indication:Hypercholesteremia Start:23-Dec-2015 Instruction Type:Patient Education How to access health informa tion online - Detail Indication:Hypercholesteremia Start:23-Dec-2015 Instruction Type:Patient Education Patient Instructions Indication:Hypercholesteremia Start:23-Dec-2015 Instruction Type:Provider Instructions for Treatment How to access health informa tion online Indication:Encounter for Medicare annual wellness exam Start:03-Oct-2015 Instruction Type:Patient Education How to access health informa tion online - Detail Indication:Encounter for Medicare annual wellness exam Start:03-Oct-2015 Instruction Type:Patient Education Patient Instructions Indication:Encounter for Medicare annual wellness exam Start:03-Oct-2015 Instruction Type:Provider Instructions for Treatment How to access health informa tion online Indication:Hypercholesteremia Start:05-Sep-2015 Instruction Type:Patient Education How to access health informa tion online - Detail Indication:Hypercholesteremia Start:05-Sep-2015 Instruction Type:Patient Education Patient Instructions Indication:Hypercholesteremia Start:05-Sep-2015 Instruction Type:Provider Instructions for Treatment How to access health informa tion online Indication:Vitamin D deficiency Start:05-Jun-2015 Instruction Type:Patient Education How to access health informa tion online - Detail Indication:Vitamin D deficiency Start:05-Jun-2015 Instruction Type:Patient Education Patient Instructions Indication:Vitamin D deficiency Start:05-Jun-2015 Instruction Type:Provider Instructions for Treatment How to access health informa tion online Indication:Hypercholesteremia Start:06-Mar-2015 Instruction Type:Patient Education How to access health informa tion online - Detail Indication:Hypercholesteremia Start:06-Mar-2015 Instruction Type:Patient Education Patient Instructions Indication:Hypercholesteremia Start:06-Mar-2015 Instruction Type:Provider Instructions for Treatment How to access health informa tion online Indication:Depressive disorder Start:27-Nov-2014 Instruction Type:Patient Education How to access health informa tion online - Detail Indication:Depressive disorder Start:27-Nov-2014 Instruction Type:Patient Education Patient Instructions Indication:Depressive disorder Start:27-Nov-2014 Instruction Type:Provider Instructions for Treatment Patient Instructions Indication:Vitamin D deficiency Start:20-Jul-2014 Instruction Type:Provider Instructions for Treatment Patient Instructions Indication:Encounter for Medicare annual wellness exam Start:06-Apr-2014 Instruction Type:Provider Instructions for Treatment [facility]; [facility] Work Phone: Instructions* Name Dates Details Patient Instructions Indication:BMI 24.0-24.9, adult Start:11-May-2022 Instruction Type:Provider Instructions for Treatment How to Access Health Informa tion Online using Patient Portal and [employer]rd [employer] Apps Indication:BMI 24.0-24.9, adult Start:11-May-2022 Instruction Type:Patient Education Patient Instructions Indication:BMI 24.0-24.9, adult Start:20-Apr-2022 Instruction Type:Provider Instructions for Treatment How to Access Health Informa tion Online using Patient Portal and [employer]rd [employer] Apps Indication:BMI 24.0-24.9, adult Start:20-Apr-2022 Instruction Type:Patient Education Patient Instructions Indication:Non-smoker Start:27-Oct-2021 Instruction Type:Provider Instructions for Treatment How to Access Health Informa tion Online using Patient Portal and [employer]rd [employer] Apps Indication:Non-smoker Start:27-Oct-2021 Instruction Type:Patient Education Patient Instructions Indication:Non-smoker Start:18-Aug-2021 Instruction Type:Provider Instructions for Treatment How to Access Health Informa tion Online using Patient Portal and [employer]rd [employer] Apps Indication:Non-smoker Start:18-Aug-2021 Instruction Type:Patient Education Patient Instructions Indication:BMI 23.0-23.9, adult Start:18-Apr-2021 Instruction Type:Provider Instructions for Treatment How to Access Health Informa tion Online using Patient Portal and [employer]rd [employer] Apps Indication:BMI 23.0-23.9, adult Start:18-Apr-2021 Instruction Type:Patient Education Patient Instructions Indication:Non-smoker Start:15-Jan-2021 Instruction Type:Provider Instructions for Treatment How to Access Health Informa tion Online using Patient Portal and [employer]rd [employer] Apps Indication:Non-smoker Start:15-Jan-2021 Instruction Type:Patient Education Patient Instructions Indication:BMI 24.0-24.9, adult Start:24-Oct-2020 Instruction Type:Provider Instructions for Treatment How to Access Health Informa tion Online using Patient Portal and [employer]rd [employer] Apps Indication:BMI 24.0-24.9, adult Start:24-Oct-2020 Instruction Type:Patient Education Patient Instructions Indication:Non-smoker Start:16-Oct-2020 Instruction Type:Provider Instructions for Treatment How to Access Health Informa tion Online using Patient Portal and [employer]rd [employer] Apps Indication:Non-smoker Start:16-Oct-2020 Instruction Type:Patient Education How to Access Health Informa tion Online using Patient Portal and [employer]rd [employer] Apps Indication:Non-smoker Start:06-Mar-2020 Instruction Type:Patient Education Patient Instructions Indication:Non-smoker Start:06-Mar-2020 Instruction Type:Provider Instructions for Treatment Patient Instructions Indication:Coronavirus infection Start:04-Mar-2020 Instruction Type:Provider Instructions for Treatment How to Access Health Informa tion Online using Patient Portal and [employer]rd [employer] Apps Indication:Coronavirus infection Start:04-Mar-2020 Instruction Type:Patient Education How to Access Health Informa tion Online using Patient Portal and [employer]rd [employer] Apps Indication:Non-smoker Start:19-Feb-2020 Instruction Type:Patient Education Patient Instructions Indication:Non-smoker Start:19-Feb-2020 Instruction Type:Provider Instructions for Treatment How to access health informa tion online Indication:Non-smoker Start:18-Aug-2019 Instruction Type:Patient Education How to access health informa tion online - Detail Indication:Non-smoker Start:18-Aug-2019 Instruction Type:Patient Education Patient Instructions Indication:Non-smoker Start:18-Aug-2019 Instruction Type:Provider Instructions for Treatment How to access health informa tion online Indication:Non-smoker Start:09-Feb-2019 Instruction Type:Patient Education How to access health informa tion online - Detail Indication:Non-smoker Start:09-Feb-2019 Instruction Type:Patient Education Patient Instructions Indication:Non-smoker Start:09-Feb-2019 Instruction Type:Provider Instructions for Treatment How to access health informa tion online Indication:BMI 22.0-22.9, adult Start:19-Oct-2018 Instruction Type:Patient Education How to access health informa tion online - Detail Indication:BMI 22.0-22.9, adult Start:19-Oct-2018 Instruction Type:Patient Education Patient Instructions Indication:BMI 22.0-22.9, adult Start:19-Oct-2018 Instruction Type:Provider Instructions for Treatment How to access health informa tion online Indication:Non-smoker Start:10-Oct-2018 Instruction Type:Patient Education How to access health informa tion online - Detail Indication:Non-smoker Start:10-Oct-2018 Instruction Type:Patient Education Patient Instructions Indication:Non-smoker Start:10-Oct-2018 Instruction Type:Provider Instructions for Treatment How to access health informa tion online Indication:BMI 22.0-22.9, adult Start:10-Aug-2018 Instruction Type:Patient Education How to access health informa tion online - Detail Indication:BMI 22.0-22.9, adult Start:10-Aug-2018 Instruction Type:Patient Education Patient Instructions Indication:BMI 22.0-22.9, adult Start:10-Aug-2018 Instruction Type:Provider Instructions for Treatment How to access health informa tion online Indication:Non-smoker Start:07-Feb-2018 Instruction Type:Patient Education How to access health informa tion online - Detail Indication:Non-smoker Start:07-Feb-2018 Instruction Type:Patient Education Patient Instructions Indication:Non-smoker Start:07-Feb-2018 Instruction Type:Provider Instructions for Treatment How to access health informa tion online Indication:Non-smoker Start:06-Oct-2017 Instruction Type:Patient Education Patient Instructions Indication:Non-smoker Start:06-Oct-2017 Instruction Type:Provider Instructions for Treatment How to access health informa tion online Indication:Non-smoker Start:03-Jun-2017 Instruction Type:Patient Education How to access health informa tion online - Detail Indication:Non-smoker Start:03-Jun-2017 Instruction Type:Patient Education Patient Instructions Indication:Non-smoker Start:03-Jun-2017 Instruction Type:Provider Instructions for Treatment How to access health informa tion online Indication:Non-smoker Start:24-Feb-2017 Instruction Type:Patient Education How to access health informa tion online - Detail Indication:Non-smoker Start:24-Feb-2017 Instruction Type:Patient Education Patient Instructions Indication:Non-smoker Start:24-Feb-2017 Instruction Type:Provider Instructions for Treatment How to access health informa tion online Indication:Non-smoker Start:21-Oct-2016 Instruction Type:Patient Education How to access health informa tion online - Detail Indication:Non-smoker Start:21-Oct-2016 Instruction Type:Patient Education Patient Instructions Indication:Non-smoker Start:21-Oct-2016 Instruction Type:Provider Instructions for Treatment How to access health informa tion online Indication:Non-smoker Start:21-Jul-2016 Instruction Type:Patient Education How to access health informa tion online - Detail Indication:Non-smoker Start:21-Jul-2016 Instruction Type:Patient Education Patient Instructions Indication:Non-smoker Start:21-Jul-2016 Instruction Type:Provider Instructions for Treatment How to access health informa tion online Indication:Hypercholesteremia Start:23-Dec-2015 Instruction Type:Patient Education How to access health informa tion online - Detail Indication:Hypercholesteremia Start:23-Dec-2015 Instruction Type:Patient Education Patient Instructions Indication:Hypercholesteremia Start:23-Dec-2015 Instruction Type:Provider Instructions for Treatment How to access health informa tion online Indication:Encounter for Medicare annual wellness exam Start:03-Oct-2015 Instruction Type:Patient Education How to access health informa tion online - Detail Indication:Encounter for Medicare annual wellness exam Start:03-Oct-2015 Instruction Type:Patient Education Patient Instructions Indication:Encounter for Medicare annual wellness exam Start:03-Oct-2015 Instruction Type:Provider Instructions for Treatment How to access health informa tion online Indication:Hypercholesteremia Start:05-Sep-2015 Instruction Type:Patient Education How to access health informa tion online - Detail Indication:Hypercholesteremia Start:05-Sep-2015 Instruction Type:Patient Education Patient Instructions Indication:Hypercholesteremia Start:05-Sep-2015 Instruction Type:Provider Instructions for Treatment How to access health informa tion online Indication:Vitamin D deficiency Start:05-Jun-2015 Instruction Type:Patient Education How to access health informa tion online - Detail Indication:Vitamin D deficiency Start:05-Jun-2015 Instruction Type:Patient Education Patient Instructions Indication:Vitamin D deficiency Start:05-Jun-2015 Instruction Type:Provider Instructions for Treatment How to access health informa tion online Indication:Hypercholesteremia Start:06-Mar-2015 Instruction Type:Patient Education How to access health informa tion online - Detail Indication:Hypercholesteremia Start:06-Mar-2015 Instruction Type:Patient Education Patient Instructions Indication:Hypercholesteremia Start:06-Mar-2015 Instruction Type:Provider Instructions for Treatment How to access health informa tion online Indication:Depressive disorder Start:27-Nov-2014 Instruction Type:Patient Education How to access health informa tion online - Detail Indication:Depressive disorder Start:27-Nov-2014 Instruction Type:Patient Education Patient Instructions Indication:Depressive disorder Start:27-Nov-2014 Instruction Type:Provider Instructions for Treatment Patient Instructions Indication:Vitamin D deficiency Start:20-Jul-2014 Instruction Type:Provider Instructions for Treatment Patient Instructions Indication:Encounter for Medicare annual wellness exam Start:06-Apr-2014 Instruction Type:Provider Instructions for Treatment [facility] Work Phone: Instructions* Name Dates Details How to Access Health Informa tion Online using Patient Portal and [employer] Apps Indication:Non-smoker Start:10-Sep-2022 Instruction Type:Patient Education Patient Instructions Indication:Non-smoker Start:10-Sep-2022 Instruction Type:Provider Instructions for Treatment Patient Instructions Indication:BMI 24.0-24.9, adult Start:11-May-2022 Instruction Type:Provider Instructions for Treatment How to Access Health Informa tion Online using Patient Portal and [employer]rd [employer] Apps Indication:BMI 24.0-24.9, adult Start:11-May-2022 Instruction Type:Patient Education Patient Instructions Indication:BMI 24.0-24.9, adult Start:20-Apr-2022 Instruction Type:Provider Instructions for Treatment How to Access Health Informa tion Online using Patient Portal and [employer]rd [employer] Apps Indication:BMI 24.0-24.9, adult Start:20-Apr-2022 Instruction Type:Patient Education Patient Instructions Indication:Non-smoker Start:27-Oct-2021 Instruction Type:Provider Instructions for Treatment How to Access Health Informa tion Online using Patient Portal and [employer]rd [employer] Apps Indication:Non-smoker Start:27-Oct-2021 Instruction Type:Patient Education Patient Instructions Indication:Non-smoker Start:18-Aug-2021 Instruction Type:Provider Instructions for Treatment How to Access Health Informa tion Online using Patient Portal and [employer]rd [employer] Apps Indication:Non-smoker Start:18-Aug-2021 Instruction Type:Patient Education Patient Instructions Indication:BMI 23.0-23.9, adult Start:18-Apr-2021 Instruction Type:Provider Instructions for Treatment How to Access Health Informa tion Online using Patient Portal and [employer]rd [employer] Apps Indication:BMI 23.0-23.9, adult Start:18-Apr-2021 Instruction Type:Patient Education Patient Instructions Indication:Non-smoker Start:15-Jan-2021 Instruction Type:Provider Instructions for Treatment How to Access Health Informa tion Online using Patient Portal and [employer] Apps Indication:Non-smoker Start:15-Jan-2021 Instruction Type:Patient Education Patient Instructions Indication:BMI 24.0-24.9, adult Start:24-Oct-2020 Instruction Type:Provider Instructions for Treatment How to Access Health Informa tion Online using Patient Portal and [employer] Apps Indication:BMI 24.0-24.9, adult Start:24-Oct-2020 Instruction Type:Patient Education Patient Instructions Indication:Non-smoker Start:16-Oct-2020 Instruction Type:Provider Instructions for Treatment How to Access Health Informa tion Online using Patient Portal and [employer] Apps Indication:Non-smoker Start:16-Oct-2020 Instruction Type:Patient Education How to Access Health Informa tion Online using Patient Portal and [employer] Apps Indication:Non-smoker Start:06-Mar-2020 Instruction Type:Patient Education Patient Instructions Indication:Non-smoker Start:06-Mar-2020 Instruction Type:Provider Instructions for Treatment Patient Instructions Indication:Coronavirus infection Start:04-Mar-2020 Instruction Type:Provider Instructions for Treatment How to Access Health Informa tion Online using Patient Portal and [employer] Apps Indication:Coronavirus infection Start:04-Mar-2020 Instruction Type:Patient Education How to Access Health Informa tion Online using Patient Portal and [employer] Apps Indication:Non-smoker Start:19-Feb-2020 Instruction Type:Patient Education Patient Instructions Indication:Non-smoker Start:19-Feb-2020 Instruction Type:Provider Instructions for Treatment How to access health informa tion online Indication:Non-smoker Start:18-Aug-2019 Instruction Type:Patient Education How to access health informa tion online - Detail Indication:Non-smoker Start:18-Aug-2019 Instruction Type:Patient Education Patient Instructions Indication:Non-smoker Start:18-Aug-2019 Instruction Type:Provider Instructions for Treatment How to access health informa tion online Indication:Non-smoker Start:09-Feb-2019 Instruction Type:Patient Education How to access health informa tion online - Detail Indication:Non-smoker Start:09-Feb-2019 Instruction Type:Patient Education Patient Instructions Indication:Non-smoker Start:09-Feb-2019 Instruction Type:Provider Instructions for Treatment How to access health informa tion online Indication:BMI 22.0-22.9, adult Start:19-Oct-2018 Instruction Type:Patient Education How to access health informa tion online - Detail Indication:BMI 22.0-22.9, adult Start:19-Oct-2018 Instruction Type:Patient Education Patient Instructions Indication:BMI 22.0-22.9, adult Start:19-Oct-2018 Instruction Type:Provider Instructions for Treatment How to access health informa tion online Indication:Non-smoker Start:10-Oct-2018 Instruction Type:Patient Education How to access health informa tion online - Detail Indication:Non-smoker Start:10-Oct-2018 Instruction Type:Patient Education Patient Instructions Indication:Non-smoker Start:10-Oct-2018 Instruction Type:Provider Instructions for Treatment How to access health informa tion online Indication:BMI 22.0-22.9, adult Start:10-Aug-2018 Instruction Type:Patient Education How to access health informa tion online - Detail Indication:BMI 22.0-22.9, adult Start:10-Aug-2018 Instruction Type:Patient Education Patient Instructions Indication:BMI 22.0-22.9, adult Start:10-Aug-2018 Instruction Type:Provider Instructions for Treatment How to access health informa tion online Indication:Non-smoker Start:07-Feb-2018 Instruction Type:Patient Education How to access health informa tion online - Detail Indication:Non-smoker Start:07-Feb-2018 Instruction Type:Patient Education Patient Instructions Indication:Non-smoker Start:07-Feb-2018 Instruction Type:Provider Instructions for Treatment How to access health informa tion online Indication:Non-smoker Start:06-Oct-2017 Instruction Type:Patient Education Patient Instructions Indication:Non-smoker Start:06-Oct-2017 Instruction Type:Provider Instructions for Treatment How to access health informa tion online Indication:Non-smoker Start:03-Jun-2017 Instruction Type:Patient Education How to access health informa tion online - Detail Indication:Non-smoker Start:03-Jun-2017 Instruction Type:Patient Education Patient Instructions Indication:Non-smoker Start:03-Jun-2017 Instruction Type:Provider Instructions for Treatment How to access health informa tion online Indication:Non-smoker Start:24-Feb-2017 Instruction Type:Patient Education How to access health informa tion online - Detail Indication:Non-smoker Start:24-Feb-2017 Instruction Type:Patient Education Patient Instructions Indication:Non-smoker Start:24-Feb-2017 Instruction Type:Provider Instructions for Treatment How to access health informa tion online Indication:Non-smoker Start:21-Oct-2016 Instruction Type:Patient Education How to access health informa tion online - Detail Indication:Non-smoker Start:21-Oct-2016 Instruction Type:Patient Education Patient Instructions Indication:Non-smoker Start:21-Oct-2016 Instruction Type:Provider Instructions for Treatment How to access health informa tion online Indication:Non-smoker Start:21-Jul-2016 Instruction Type:Patient Education How to access health informa tion online - Detail Indication:Non-smoker Start:21-Jul-2016 Instruction Type:Patient Education Patient Instructions Indication:Non-smoker Start:21-Jul-2016 Instruction Type:Provider Instructions for Treatment How to access health informa tion online Indication:Hypercholesteremia Start:23-Dec-2015 Instruction Type:Patient Education How to access health informa tion online - Detail Indication:Hypercholesteremia Start:23-Dec-2015 Instruction Type:Patient Education Patient Instructions Indication:Hypercholesteremia Start:23-Dec-2015 Instruction Type:Provider Instructions for Treatment How to access health informa tion online Indication:Encounter for Medicare annual wellness exam Start:03-Oct-2015 Instruction Type:Patient Education How to access health informa tion online - Detail Indication:Encounter for Medicare annual wellness exam Start:03-Oct-2015 Instruction Type:Patient Education Patient Instructions Indication:Encounter for Medicare annual wellness exam Start:03-Oct-2015 Instruction Type:Provider Instructions for Treatment How to access health informa tion online Indication:Hypercholesteremia Start:05-Sep-2015 Instruction Type:Patient Education How to access health informa tion online - Detail Indication:Hypercholesteremia Start:05-Sep-2015 Instruction Type:Patient Education Patient Instructions Indication:Hypercholesteremia Start:05-Sep-2015 Instruction Type:Provider Instructions for Treatment How to access health informa tion online Indication:Vitamin D deficiency Start:05-Jun-2015 Instruction Type:Patient Education How to access health informa tion online - Detail Indication:Vitamin D deficiency Start:05-Jun-2015 Instruction Type:Patient Education Patient Instructions Indication:Vitamin D deficiency Start:05-Jun-2015 Instruction Type:Provider Instructions for Treatment How to access health informa tion online Indication:Hypercholesteremia Start:06-Mar-2015 Instruction Type:Patient Education How to access health informa tion online - Detail Indication:Hypercholesteremia Start:06-Mar-2015 Instruction Type:Patient Education Patient Instructions Indication:Hypercholesteremia Start:06-Mar-2015 Instruction Type:Provider Instructions for Treatment How to access health informa tion online Indication:Depressive disorder Start:27-Nov-2014 Instruction Type:Patient Education How to access health informa tion online - Detail Indication:Depressive disorder Start:27-Nov-2014 Instruction Type:Patient Education Patient Instructions Indication:Depressive disorder Start:27-Nov-2014 Instruction Type:Provider Instructions for Treatment Patient Instructions Indication:Vitamin D deficiency Start:20-Jul-2014 Instruction Type:Provider Instructions for Treatment Patient Instructions Indication:Encounter for Medicare annual wellness exam Start:06-Apr-2014 Instruction Type:Provider Instructions for Treatment [facility]; [facility] Work Phone: Instructions* Name Dates Details How to Access Health Informa tion Online using Patient Portal and [employer] Apps Indication:Non-smoker Start:10-Sep-2022 Instruction Type:Patient Education Patient Instructions Indication:Non-smoker Start:10-Sep-2022 Instruction Type:Provider Instructions for Treatment Patient Instructions Indication:BMI 24.0-24.9, adult Start:11-May-2022 Instruction Type:Provider Instructions for Treatment How to Access Health Informa tion Online using Patient Portal and [employer] Apps Indication:BMI 24.0-24.9, adult Start:11-May-2022 Instruction Type:Patient Education Patient Instructions Indication:BMI 24.0-24.9, adult Start:20-Apr-2022 Instruction Type:Provider Instructions for Treatment How to Access Health Informa tion Online using Patient Portal and [employer] Apps Indication:BMI 24.0-24.9, adult Start:20-Apr-2022 Instruction Type:Patient Education Patient Instructions Indication:Non-smoker Start:27-Oct-2021 Instruction Type:Provider Instructions for Treatment How to Access Health Informa tion Online using Patient Portal and [employer] Apps Indication:Non-smoker Start:27-Oct-2021 Instruction Type:Patient Education Patient Instructions Indication:Non-smoker Start:18-Aug-2021 Instruction Type:Provider Instructions for Treatment How to Access Health Informa tion Online using Patient Portal and [employer] Apps Indication:Non-smoker Start:18-Aug-2021 Instruction Type:Patient Education Patient Instructions Indication:BMI 23.0-23.9, adult Start:18-Apr-2021 Instruction Type:Provider Instructions for Treatment How to Access Health Informa tion Online using Patient Portal and [employer] Apps Indication:BMI 23.0-23.9, adult Start:18-Apr-2021 Instruction Type:Patient Education Patient Instructions Indication:Non-smoker Start:15-Jan-2021 Instruction Type:Provider Instructions for Treatment How to Access Health Informa tion Online using Patient Portal and [employer] Apps Indication:Non-smoker Start:15-Jan-2021 Instruction Type:Patient Education Patient Instructions Indication:BMI 24.0-24.9, adult Start:24-Oct-2020 Instruction Type:Provider Instructions for Treatment How to Access Health Informa tion Online using Patient Portal and [employer] Apps Indication:BMI 24.0-24.9, adult Start:24-Oct-2020 Instruction Type:Patient Education Patient Instructions Indication:Non-smoker Start:16-Oct-2020 Instruction Type:Provider Instructions for Treatment How to Access Health Informa tion Online using Patient Portal and [employer] Apps Indication:Non-smoker Start:16-Oct-2020 Instruction Type:Patient Education How to Access Health Informa tion Online using Patient Portal and [employer] Apps Indication:Non-smoker Start:06-Mar-2020 Instruction Type:Patient Education Patient Instructions Indication:Non-smoker Start:06-Mar-2020 Instruction Type:Provider Instructions for Treatment Patient Instructions Indication:Coronavirus infection Start:04-Mar-2020 Instruction Type:Provider Instructions for Treatment How to Access Health Informa tion Online using Patient Portal and [employer] Apps Indication:Coronavirus infection Start:04-Mar-2020 Instruction Type:Patient Education How to Access Health Informa tion Online using Patient Portal and [employer] Apps Indication:Non-smoker Start:19-Feb-2020 Instruction Type:Patient Education Patient Instructions Indication:Non-smoker Start:19-Feb-2020 Instruction Type:Provider Instructions for Treatment How to access health informa tion online Indication:Non-smoker Start:18-Aug-2019 Instruction Type:Patient Education How to access health informa tion online - Detail Indication:Non-smoker Start:18-Aug-2019 Instruction Type:Patient Education Patient Instructions Indication:Non-smoker Start:18-Aug-2019 Instruction Type:Provider Instructions for Treatment How to access health informa tion online Indication:Non-smoker Start:09-Feb-2019 Instruction Type:Patient Education How to access health informa tion online - Detail Indication:Non-smoker Start:09-Feb-2019 Instruction Type:Patient Education Patient Instructions Indication:Non-smoker Start:09-Feb-2019 Instruction Type:Provider Instructions for Treatment How to access health informa tion online Indication:BMI 22.0-22.9, adult Start:19-Oct-2018 Instruction Type:Patient Education How to access health informa tion online - Detail Indication:BMI 22.0-22.9, adult Start:19-Oct-2018 Instruction Type:Patient Education Patient Instructions Indication:BMI 22.0-22.9, adult Start:19-Oct-2018 Instruction Type:Provider Instructions for Treatment How to access health informa tion online Indication:Non-smoker Start:10-Oct-2018 Instruction Type:Patient Education How to access health informa tion online - Detail Indication:Non-smoker Start:10-Oct-2018 Instruction Type:Patient Education Patient Instructions Indication:Non-smoker Start:10-Oct-2018 Instruction Type:Provider Instructions for Treatment How to access health informa tion online Indication:BMI 22.0-22.9, adult Start:10-Aug-2018 Instruction Type:Patient Education How to access health informa tion online - Detail Indication:BMI 22.0-22.9, adult Start:10-Aug-2018 Instruction Type:Patient Education Patient Instructions Indication:BMI 22.0-22.9, adult Start:10-Aug-2018 Instruction Type:Provider Instructions for Treatment How to access health informa tion online Indication:Non-smoker Start:07-Feb-2018 Instruction Type:Patient Education How to access health informa tion online - Detail Indication:Non-smoker Start:07-Feb-2018 Instruction Type:Patient Education Patient Instructions Indication:Non-smoker Start:07-Feb-2018 Instruction Type:Provider Instructions for Treatment How to access health informa tion online Indication:Non-smoker Start:06-Oct-2017 Instruction Type:Patient Education Patient Instructions Indication:Non-smoker Start:06-Oct-2017 Instruction Type:Provider Instructions for Treatment How to access health informa tion online Indication:Non-smoker Start:03-Jun-2017 Instruction Type:Patient Education How to access health informa tion online - Detail Indication:Non-smoker Start:03-Jun-2017 Instruction Type:Patient Education Patient Instructions Indication:Non-smoker Start:03-Jun-2017 Instruction Type:Provider Instructions for Treatment How to access health informa tion online Indication:Non-smoker Start:24-Feb-2017 Instruction Type:Patient Education How to access health informa tion online - Detail Indication:Non-smoker Start:24-Feb-2017 Instruction Type:Patient Education Patient Instructions Indication:Non-smoker Start:24-Feb-2017 Instruction Type:Provider Instructions for Treatment How to access health informa tion online Indication:Non-smoker Start:21-Oct-2016 Instruction Type:Patient Education How to access health informa tion online - Detail Indication:Non-smoker Start:21-Oct-2016 Instruction Type:Patient Education Patient Instructions Indication:Non-smoker Start:21-Oct-2016 Instruction Type:Provider Instructions for Treatment How to access health informa tion online Indication:Non-smoker Start:21-Jul-2016 Instruction Type:Patient Education How to access health informa tion online - Detail Indication:Non-smoker Start:21-Jul-2016 Instruction Type:Patient Education Patient Instructions Indication:Non-smoker Start:21-Jul-2016 Instruction Type:Provider Instructions for Treatment How to access health informa tion online Indication:Hypercholesteremia Start:23-Dec-2015 Instruction Type:Patient Education How to access health informa tion online - Detail Indication:Hypercholesteremia Start:23-Dec-2015 Instruction Type:Patient Education Patient Instructions Indication:Hypercholesteremia Start:23-Dec-2015 Instruction Type:Provider Instructions for Treatment How to access health informa tion online Indication:Encounter for Medicare annual wellness exam Start:03-Oct-2015 Instruction Type:Patient Education How to access health informa tion online - Detail Indication:Encounter for Medicare annual wellness exam Start:03-Oct-2015 Instruction Type:Patient Education Patient Instructions Indication:Encounter for Medicare annual wellness exam Start:03-Oct-2015 Instruction Type:Provider Instructions for Treatment How to access health informa tion online Indication:Hypercholesteremia Start:05-Sep-2015 Instruction Type:Patient Education How to access health informa tion online - Detail Indication:Hypercholesteremia Start:05-Sep-2015 Instruction Type:Patient Education Patient Instructions Indication:Hypercholesteremia Start:05-Sep-2015 Instruction Type:Provider Instructions for Treatment How to access health informa tion online Indication:Vitamin D deficiency Start:05-Jun-2015 Instruction Type:Patient Education How to access health informa tion online - Detail Indication:Vitamin D deficiency Start:05-Jun-2015 Instruction Type:Patient Education Patient Instructions Indication:Vitamin D deficiency Start:05-Jun-2015 Instruction Type:Provider Instructions for Treatment How to access health informa tion online Indication:Hypercholesteremia Start:06-Mar-2015 Instruction Type:Patient Education How to access health informa tion online - Detail Indication:Hypercholesteremia Start:06-Mar-2015 Instruction Type:Patient Education Patient Instructions Indication:Hypercholesteremia Start:06-Mar-2015 Instruction Type:Provider Instructions for Treatment How to access health informa tion online Indication:Depressive disorder Start:27-Nov-2014 Instruction Type:Patient Education How to access health informa tion online - Detail Indication:Depressive disorder Start:27-Nov-2014 Instruction Type:Patient Education Patient Instructions Indication:Depressive disorder Start:27-Nov-2014 Instruction Type:Provider Instructions for Treatment Patient Instructions Indication:Vitamin D deficiency Start:20-Jul-2014 Instruction Type:Provider Instructions for Treatment Patient Instructions Indication:Encounter for Medicare annual wellness exam Start:06-Apr-2014 Instruction Type:Provider Instructions for Treatment [facility] Work Phone: Instructions* Name Dates Details How to Access Health Informa tion Online using Patient Portal and [employer] Apps Indication:Non-smoker Start:10-Sep-2022 Instruction Type:Patient Education Patient Instructions Indication:Non-smoker Start:10-Sep-2022 Instruction Type:Provider Instructions for Treatment Patient Instructions Indication:BMI 24.0-24.9, adult Start:11-May-2022 Instruction Type:Provider Instructions for Treatment How to Access Health Informa tion Online using Patient Portal and [employer] Apps Indication:BMI 24.0-24.9, adult Start:11-May-2022 Instruction Type:Patient Education Patient Instructions Indication:BMI 24.0-24.9, adult Start:20-Apr-2022 Instruction Type:Provider Instructions for Treatment How to Access Health Informa tion Online using Patient Portal and [employer] Apps Indication:BMI 24.0-24.9, adult Start:20-Apr-2022 Instruction Type:Patient Education Patient Instructions Indication:Non-smoker Start:27-Oct-2021 Instruction Type:Provider Instructions for Treatment How to Access Health Informa tion Online using Patient Portal and [employer] Apps Indication:Non-smoker Start:27-Oct-2021 Instruction Type:Patient Education Patient Instructions Indication:Non-smoker Start:18-Aug-2021 Instruction Type:Provider Instructions for Treatment How to Access Health Informa tion Online using Patient Portal and [employer] Apps Indication:Non-smoker Start:18-Aug-2021 Instruction Type:Patient Education Patient Instructions Indication:BMI 23.0-23.9, adult Start:18-Apr-2021 Instruction Type:Provider Instructions for Treatment How to Access Health Informa tion Online using Patient Portal and [employer] Apps Indication:BMI 23.0-23.9, adult Start:18-Apr-2021 Instruction Type:Patient Education Patient Instructions Indication:Non-smoker Start:15-Jan-2021 Instruction Type:Provider Instructions for Treatment How to Access Health Informa tion Online using Patient Portal and [employer] Apps Indication:Non-smoker Start:15-Jan-2021 Instruction Type:Patient Education Patient Instructions Indication:BMI 24.0-24.9, adult Start:24-Oct-2020 Instruction Type:Provider Instructions for Treatment How to Access Health Informa tion Online using Patient Portal and [employer] Apps Indication:BMI 24.0-24.9, adult Start:24-Oct-2020 Instruction Type:Patient Education Patient Instructions Indication:Non-smoker Start:16-Oct-2020 Instruction Type:Provider Instructions for Treatment How to Access Health Informa tion Online using Patient Portal and [employer] Apps Indication:Non-smoker Start:16-Oct-2020 Instruction Type:Patient Education How to Access Health Informa tion Online using Patient Portal and [employer] Apps Indication:Non-smoker Start:06-Mar-2020 Instruction Type:Patient Education Patient Instructions Indication:Non-smoker Start:06-Mar-2020 Instruction Type:Provider Instructions for Treatment Patient Instructions Indication:Coronavirus infection Start:04-Mar-2020 Instruction Type:Provider Instructions for Treatment How to Access Health Informa tion Online using Patient Portal and [employer] Apps Indication:Coronavirus infection Start:04-Mar-2020 Instruction Type:Patient Education How to Access Health Informa tion Online using Patient Portal and [employer] Apps Indication:Non-smoker Start:19-Feb-2020 Instruction Type:Patient Education Patient Instructions Indication:Non-smoker Start:19-Feb-2020 Instruction Type:Provider Instructions for Treatment How to access health informa tion online Indication:Non-smoker Start:18-Aug-2019 Instruction Type:Patient Education How to access health informa tion online - Detail Indication:Non-smoker Start:18-Aug-2019 Instruction Type:Patient Education Patient Instructions Indication:Non-smoker Start:18-Aug-2019 Instruction Type:Provider Instructions for Treatment How to access health informa tion online Indication:Non-smoker Start:09-Feb-2019 Instruction Type:Patient Education How to access health informa tion online - Detail Indication:Non-smoker Start:09-Feb-2019 Instruction Type:Patient Education Patient Instructions Indication:Non-smoker Start:09-Feb-2019 Instruction Type:Provider Instructions for Treatment How to access health informa tion online Indication:BMI 22.0-22.9, adult Start:19-Oct-2018 Instruction Type:Patient Education How to access health informa tion online - Detail Indication:BMI 22.0-22.9, adult Start:19-Oct-2018 Instruction Type:Patient Education Patient Instructions Indication:BMI 22.0-22.9, adult Start:19-Oct-2018 Instruction Type:Provider Instructions for Treatment How to access health informa tion online Indication:Non-smoker Start:10-Oct-2018 Instruction Type:Patient Education How to access health informa tion online - Detail Indication:Non-smoker Start:10-Oct-2018 Instruction Type:Patient Education Patient Instructions Indication:Non-smoker Start:10-Oct-2018 Instruction Type:Provider Instructions for Treatment How to access health informa tion online Indication:BMI 22.0-22.9, adult Start:10-Aug-2018 Instruction Type:Patient Education How to access health informa tion online - Detail Indication:BMI 22.0-22.9, adult Start:10-Aug-2018 Instruction Type:Patient Education Patient Instructions Indication:BMI 22.0-22.9, adult Start:10-Aug-2018 Instruction Type:Provider Instructions for Treatment How to access health informa tion online Indication:Non-smoker Start:07-Feb-2018 Instruction Type:Patient Education How to access health informa tion online - Detail Indication:Non-smoker Start:07-Feb-2018 Instruction Type:Patient Education Patient Instructions Indication:Non-smoker Start:07-Feb-2018 Instruction Type:Provider Instructions for Treatment How to access health informa tion online Indication:Non-smoker Start:06-Oct-2017 Instruction Type:Patient Education Patient Instructions Indication:Non-smoker Start:06-Oct-2017 Instruction Type:Provider Instructions for Treatment How to access health informa tion online Indication:Non-smoker Start:03-Jun-2017 Instruction Type:Patient Education How to access health informa tion online - Detail Indication:Non-smoker Start:03-Jun-2017 Instruction Type:Patient Education Patient Instructions Indication:Non-smoker Start:03-Jun-2017 Instruction Type:Provider Instructions for Treatment How to access health informa tion online Indication:Non-smoker Start:24-Feb-2017 Instruction Type:Patient Education How to access health informa tion online - Detail Indication:Non-smoker Start:24-Feb-2017 Instruction Type:Patient Education Patient Instructions Indication:Non-smoker Start:24-Feb-2017 Instruction Type:Provider Instructions for Treatment How to access health informa tion online Indication:Non-smoker Start:21-Oct-2016 Instruction Type:Patient Education How to access health informa tion online - Detail Indication:Non-smoker Start:21-Oct-2016 Instruction Type:Patient Education Patient Instructions Indication:Non-smoker Start:21-Oct-2016 Instruction Type:Provider Instructions for Treatment How to access health informa tion online Indication:Non-smoker Start:21-Jul-2016 Instruction Type:Patient Education How to access health informa tion online - Detail Indication:Non-smoker Start:21-Jul-2016 Instruction Type:Patient Education Patient Instructions Indication:Non-smoker Start:21-Jul-2016 Instruction Type:Provider Instructions for Treatment How to access health informa tion online Indication:Hypercholesteremia Start:23-Dec-2015 Instruction Type:Patient Education How to access health informa tion online - Detail Indication:Hypercholesteremia Start:23-Dec-2015 Instruction Type:Patient Education Patient Instructions Indication:Hypercholesteremia Start:23-Dec-2015 Instruction Type:Provider Instructions for Treatment How to access health informa tion online Indication:Encounter for Medicare annual wellness exam Start:03-Oct-2015 Instruction Type:Patient Education How to access health informa tion online - Detail Indication:Encounter for Medicare annual wellness exam Start:03-Oct-2015 Instruction Type:Patient Education Patient Instructions Indication:Encounter for Medicare annual wellness exam Start:03-Oct-2015 Instruction Type:Provider Instructions for Treatment How to access health informa tion online Indication:Hypercholesteremia Start:05-Sep-2015 Instruction Type:Patient Education How to access health informa tion online - Detail Indication:Hypercholesteremia Start:05-Sep-2015 Instruction Type:Patient Education Patient Instructions Indication:Hypercholesteremia Start:05-Sep-2015 Instruction Type:Provider Instructions for Treatment How to access health informa tion online Indication:Vitamin D deficiency Start:05-Jun-2015 Instruction Type:Patient Education How to access health informa tion online - Detail Indication:Vitamin D deficiency Start:05-Jun-2015 Instruction Type:Patient Education Patient Instructions Indication:Vitamin D deficiency Start:05-Jun-2015 Instruction Type:Provider Instructions for Treatment How to access health informa tion online Indication:Hypercholesteremia Start:06-Mar-2015 Instruction Type:Patient Education How to access health informa tion online - Detail Indication:Hypercholesteremia Start:06-Mar-2015 Instruction Type:Patient Education Patient Instructions Indication:Hypercholesteremia Start:06-Mar-2015 Instruction Type:Provider Instructions for Treatment How to access health informa tion online Indication:Depressive disorder Start:27-Nov-2014 Instruction Type:Patient Education How to access health informa tion online - Detail Indication:Depressive disorder Start:27-Nov-2014 Instruction Type:Patient Education Patient Instructions Indication:Depressive disorder Start:27-Nov-2014 Instruction Type:Provider Instructions for Treatment Patient Instructions Indication:Vitamin D deficiency Start:20-Jul-2014 Instruction Type:Provider Instructions for Treatment Patient Instructions Indication:Encounter for Medicare annual wellness exam Start:06-Apr-2014 Instruction Type:Provider Instructions for Treatment [facility]; [facility] Work Phone: Instructions* Name Dates Details Patient Instructions Indication:Vitamin D deficiency Start:12-Nov-2022 Instruction Type:Provider Instructions for Treatment How to Access Health Informa tion Online using Patient Portal and [employer]rd [employer] Apps Indication:Vitamin D deficiency Start:12-Nov-2022 Instruction Type:Patient Education How to Access Health Informa tion Online using Patient Portal and [employer]rd [employer] Apps Indication:Non-smoker Start:10-Sep-2022 Instruction Type:Patient Education Patient Instructions Indication:Non-smoker Start:10-Sep-2022 Instruction Type:Provider Instructions for Treatment Patient Instructions Indication:BMI 24.0-24.9, adult Start:11-May-2022 Instruction Type:Provider Instructions for Treatment How to Access Health Informa tion Online using Patient Portal and [employer]rd [employer] Apps Indication:BMI 24.0-24.9, adult Start:11-May-2022 Instruction Type:Patient Education Patient Instructions Indication:BMI 24.0-24.9, adult Start:20-Apr-2022 Instruction Type:Provider Instructions for Treatment How to Access Health Informa tion Online using Patient Portal and [employer]rd [employer] Apps Indication:BMI 24.0-24.9, adult Start:20-Apr-2022 Instruction Type:Patient Education Patient Instructions Indication:Non-smoker Start:27-Oct-2021 Instruction Type:Provider Instructions for Treatment How to Access Health Informa tion Online using Patient Portal and [employer]rd [employer] Apps Indication:Non-smoker Start:27-Oct-2021 Instruction Type:Patient Education Patient Instructions Indication:Non-smoker Start:18-Aug-2021 Instruction Type:Provider Instructions for Treatment How to Access Health Informa tion Online using Patient Portal and [employer]rd [employer] Apps Indication:Non-smoker Start:18-Aug-2021 Instruction Type:Patient Education Patient Instructions Indication:BMI 23.0-23.9, adult Start:18-Apr-2021 Instruction Type:Provider Instructions for Treatment How to Access Health Informa tion Online using Patient Portal and [employer]rd [employer] Apps Indication:BMI 23.0-23.9, adult Start:18-Apr-2021 Instruction Type:Patient Education Patient Instructions Indication:Non-smoker Start:15-Jan-2021 Instruction Type:Provider Instructions for Treatment How to Access Health Informa tion Online using Patient Portal and [employer]rd [employer] Apps Indication:Non-smoker Start:15-Jan-2021 Instruction Type:Patient Education Patient Instructions Indication:BMI 24.0-24.9, adult Start:24-Oct-2020 Instruction Type:Provider Instructions for Treatment How to Access Health Informa tion Online using Patient Portal and [employer]rd [employer] Apps Indication:BMI 24.0-24.9, adult Start:24-Oct-2020 Instruction Type:Patient Education Patient Instructions Indication:Non-smoker Start:16-Oct-2020 Instruction Type:Provider Instructions for Treatment How to Access Health Informa tion Online using Patient Portal and [employer]rd [employer] Apps Indication:Non-smoker Start:16-Oct-2020 Instruction Type:Patient Education How to Access Health Informa tion Online using Patient Portal and [employer]rd [employer] Apps Indication:Non-smoker Start:06-Mar-2020 Instruction Type:Patient Education Patient Instructions Indication:Non-smoker Start:06-Mar-2020 Instruction Type:Provider Instructions for Treatment Patient Instructions Indication:Coronavirus infection Start:04-Mar-2020 Instruction Type:Provider Instructions for Treatment How to Access Health Informa tion Online using Patient Portal and [employer]rd [employer] Apps Indication:Coronavirus infection Start:04-Mar-2020 Instruction Type:Patient Education How to Access Health Informa tion Online using Patient Portal and [employer]rd [employer] Apps Indication:Non-smoker Start:19-Feb-2020 Instruction Type:Patient Education Patient Instructions Indication:Non-smoker Start:19-Feb-2020 Instruction Type:Provider Instructions for Treatment How to access health informa tion online Indication:Non-smoker Start:18-Aug-2019 Instruction Type:Patient Education How to access health informa tion online - Detail Indication:Non-smoker Start:18-Aug-2019 Instruction Type:Patient Education Patient Instructions Indication:Non-smoker Start:18-Aug-2019 Instruction Type:Provider Instructions for Treatment How to access health informa tion online Indication:Non-smoker Start:09-Feb-2019 Instruction Type:Patient Education How to access health informa tion online - Detail Indication:Non-smoker Start:09-Feb-2019 Instruction Type:Patient Education Patient Instructions Indication:Non-smoker Start:09-Feb-2019 Instruction Type:Provider Instructions for Treatment How to access health informa tion online Indication:BMI 22.0-22.9, adult Start:19-Oct-2018 Instruction Type:Patient Education How to access health informa tion online - Detail Indication:BMI 22.0-22.9, adult Start:19-Oct-2018 Instruction Type:Patient Education Patient Instructions Indication:BMI 22.0-22.9, adult Start:19-Oct-2018 Instruction Type:Provider Instructions for Treatment How to access health informa tion online Indication:Non-smoker Start:10-Oct-2018 Instruction Type:Patient Education How to access health informa tion online - Detail Indication:Non-smoker Start:10-Oct-2018 Instruction Type:Patient Education Patient Instructions Indication:Non-smoker Start:10-Oct-2018 Instruction Type:Provider Instructions for Treatment How to access health informa tion online Indication:BMI 22.0-22.9, adult Start:10-Aug-2018 Instruction Type:Patient Education How to access health informa tion online - Detail Indication:BMI 22.0-22.9, adult Start:10-Aug-2018 Instruction Type:Patient Education Patient Instructions Indication:BMI 22.0-22.9, adult Start:10-Aug-2018 Instruction Type:Provider Instructions for Treatment How to access health informa tion online Indication:Non-smoker Start:07-Feb-2018 Instruction Type:Patient Education How to access health informa tion online - Detail Indication:Non-smoker Start:07-Feb-2018 Instruction Type:Patient Education Patient Instructions Indication:Non-smoker Start:07-Feb-2018 Instruction Type:Provider Instructions for Treatment How to access health informa tion online Indication:Non-smoker Start:06-Oct-2017 Instruction Type:Patient Education Patient Instructions Indication:Non-smoker Start:06-Oct-2017 Instruction Type:Provider Instructions for Treatment How to access health informa tion online Indication:Non-smoker Start:03-Jun-2017 Instruction Type:Patient Education How to access health informa tion online - Detail Indication:Non-smoker Start:03-Jun-2017 Instruction Type:Patient Education Patient Instructions Indication:Non-smoker Start:03-Jun-2017 Instruction Type:Provider Instructions for Treatment How to access health informa tion online Indication:Non-smoker Start:24-Feb-2017 Instruction Type:Patient Education How to access health informa tion online - Detail Indication:Non-smoker Start:24-Feb-2017 Instruction Type:Patient Education Patient Instructions Indication:Non-smoker Start:24-Feb-2017 Instruction Type:Provider Instructions for Treatment How to access health informa tion online Indication:Non-smoker Start:21-Oct-2016 Instruction Type:Patient Education How to access health informa tion online - Detail Indication:Non-smoker Start:21-Oct-2016 Instruction Type:Patient Education Patient Instructions Indication:Non-smoker Start:21-Oct-2016 Instruction Type:Provider Instructions for Treatment How to access health informa tion online Indication:Non-smoker Start:21-Jul-2016 Instruction Type:Patient Education How to access health informa tion online - Detail Indication:Non-smoker Start:21-Jul-2016 Instruction Type:Patient Education Patient Instructions Indication:Non-smoker Start:21-Jul-2016 Instruction Type:Provider Instructions for Treatment How to access health informa tion online Indication:Hypercholesteremia Start:23-Dec-2015 Instruction Type:Patient Education How to access health informa tion online - Detail Indication:Hypercholesteremia Start:23-Dec-2015 Instruction Type:Patient Education Patient Instructions Indication:Hypercholesteremia Start:23-Dec-2015 Instruction Type:Provider Instructions for Treatment How to access health informa tion online Indication:Encounter for Medicare annual wellness exam Start:03-Oct-2015 Instruction Type:Patient Education How to access health informa tion online - Detail Indication:Encounter for Medicare annual wellness exam Start:03-Oct-2015 Instruction Type:Patient Education Patient Instructions Indication:Encounter for Medicare annual wellness exam Start:03-Oct-2015 Instruction Type:Provider Instructions for Treatment How to access health informa tion online Indication:Hypercholesteremia Start:05-Sep-2015 Instruction Type:Patient Education How to access health informa tion online - Detail Indication:Hypercholesteremia Start:05-Sep-2015 Instruction Type:Patient Education Patient Instructions Indication:Hypercholesteremia Start:05-Sep-2015 Instruction Type:Provider Instructions for Treatment How to access health informa tion online Indication:Vitamin D deficiency Start:05-Jun-2015 Instruction Type:Patient Education How to access health informa tion online - Detail Indication:Vitamin D deficiency Start:05-Jun-2015 Instruction Type:Patient Education Patient Instructions Indication:Vitamin D deficiency Start:05-Jun-2015 Instruction Type:Provider Instructions for Treatment How to access health informa tion online Indication:Hypercholesteremia Start:06-Mar-2015 Instruction Type:Patient Education How to access health informa tion online - Detail Indication:Hypercholesteremia Start:06-Mar-2015 Instruction Type:Patient Education Patient Instructions Indication:Hypercholesteremia Start:06-Mar-2015 Instruction Type:Provider Instructions for Treatment How to access health informa tion online Indication:Depressive disorder Start:27-Nov-2014 Instruction Type:Patient Education How to access health informa tion online - Detail Indication:Depressive disorder Start:27-Nov-2014 Instruction Type:Patient Education Patient Instructions Indication:Depressive disorder Start:27-Nov-2014 Instruction Type:Provider Instructions for Treatment Patient Instructions Indication:Vitamin D deficiency Start:20-Jul-2014 Instruction Type:Provider Instructions for Treatment Patient Instructions Indication:Encounter for Medicare annual wellness exam Start:06-Apr-2014 Instruction Type:Provider Instructions for Treatment [facility]; [facility] Work Phone: Instructions* Name Dates Details Patient Instructions Indication:Vitamin D deficiency Start:12-Nov-2022 Instruction Type:Provider Instructions for Treatment How to Access Health Informa tion Online using Patient Portal and [employer]rd [employer] Apps Indication:Vitamin D deficiency Start:12-Nov-2022 Instruction Type:Patient Education How to Access Health Informa tion Online using Patient Portal and [employer]rd [employer] Apps Indication:Non-smoker Start:10-Sep-2022 Instruction Type:Patient Education Patient Instructions Indication:Non-smoker Start:10-Sep-2022 Instruction Type:Provider Instructions for Treatment Patient Instructions Indication:BMI 24.0-24.9, adult Start:11-May-2022 Instruction Type:Provider Instructions for Treatment How to Access Health Informa tion Online using Patient Portal and [employer]rd [employer] Apps Indication:BMI 24.0-24.9, adult Start:11-May-2022 Instruction Type:Patient Education Patient Instructions Indication:BMI 24.0-24.9, adult Start:20-Apr-2022 Instruction Type:Provider Instructions for Treatment How to Access Health Informa tion Online using Patient Portal and [employer]rd [employer] Apps Indication:BMI 24.0-24.9, adult Start:20-Apr-2022 Instruction Type:Patient Education Patient Instructions Indication:Non-smoker Start:27-Oct-2021 Instruction Type:Provider Instructions for Treatment How to Access Health Informa tion Online using Patient Portal and [employer]rd [employer] Apps Indication:Non-smoker Start:27-Oct-2021 Instruction Type:Patient Education Patient Instructions Indication:Non-smoker Start:18-Aug-2021 Instruction Type:Provider Instructions for Treatment How to Access Health Informa tion Online using Patient Portal and [employer]rd [employer] Apps Indication:Non-smoker Start:18-Aug-2021 Instruction Type:Patient Education Patient Instructions Indication:BMI 23.0-23.9, adult Start:18-Apr-2021 Instruction Type:Provider Instructions for Treatment How to Access Health Informa tion Online using Patient Portal and [employer]rd [employer] Apps Indication:BMI 23.0-23.9, adult Start:18-Apr-2021 Instruction Type:Patient Education Patient Instructions Indication:Non-smoker Start:15-Jan-2021 Instruction Type:Provider Instructions for Treatment How to Access Health Informa tion Online using Patient Portal and [employer]rd [employer] Apps Indication:Non-smoker Start:15-Jan-2021 Instruction Type:Patient Education Patient Instructions Indication:BMI 24.0-24.9, adult Start:24-Oct-2020 Instruction Type:Provider Instructions for Treatment How to Access Health Informa tion Online using Patient Portal and [employer]rd [employer] Apps Indication:BMI 24.0-24.9, adult Start:24-Oct-2020 Instruction Type:Patient Education Patient Instructions Indication:Non-smoker Start:16-Oct-2020 Instruction Type:Provider Instructions for Treatment How to Access Health Informa tion Online using Patient Portal and [employer]rd [employer] Apps Indication:Non-smoker Start:16-Oct-2020 Instruction Type:Patient Education How to Access Health Informa tion Online using Patient Portal and [employer]rd [employer] Apps Indication:Non-smoker Start:06-Mar-2020 Instruction Type:Patient Education Patient Instructions Indication:Non-smoker Start:06-Mar-2020 Instruction Type:Provider Instructions for Treatment Patient Instructions Indication:Coronavirus infection Start:04-Mar-2020 Instruction Type:Provider Instructions for Treatment How to Access Health Informa tion Online using Patient Portal and [employer]rd [employer] Apps Indication:Coronavirus infection Start:04-Mar-2020 Instruction Type:Patient Education How to Access Health Informa tion Online using Patient Portal and [employer]rd [employer] Apps Indication:Non-smoker Start:19-Feb-2020 Instruction Type:Patient Education Patient Instructions Indication:Non-smoker Start:19-Feb-2020 Instruction Type:Provider Instructions for Treatment How to access health informa tion online Indication:Non-smoker Start:18-Aug-2019 Instruction Type:Patient Education How to access health informa tion online - Detail Indication:Non-smoker Start:18-Aug-2019 Instruction Type:Patient Education Patient Instructions Indication:Non-smoker Start:18-Aug-2019 Instruction Type:Provider Instructions for Treatment How to access health informa tion online Indication:Non-smoker Start:09-Feb-2019 Instruction Type:Patient Education How to access health informa tion online - Detail Indication:Non-smoker Start:09-Feb-2019 Instruction Type:Patient Education Patient Instructions Indication:Non-smoker Start:09-Feb-2019 Instruction Type:Provider Instructions for Treatment How to access health informa tion online Indication:BMI 22.0-22.9, adult Start:19-Oct-2018 Instruction Type:Patient Education How to access health informa tion online - Detail Indication:BMI 22.0-22.9, adult Start:19-Oct-2018 Instruction Type:Patient Education Patient Instructions Indication:BMI 22.0-22.9, adult Start:19-Oct-2018 Instruction Type:Provider Instructions for Treatment How to access health informa tion online Indication:Non-smoker Start:10-Oct-2018 Instruction Type:Patient Education How to access health informa tion online - Detail Indication:Non-smoker Start:10-Oct-2018 Instruction Type:Patient Education Patient Instructions Indication:Non-smoker Start:10-Oct-2018 Instruction Type:Provider Instructions for Treatment How to access health informa tion online Indication:BMI 22.0-22.9, adult Start:10-Aug-2018 Instruction Type:Patient Education How to access health informa tion online - Detail Indication:BMI 22.0-22.9, adult Start:10-Aug-2018 Instruction Type:Patient Education Patient Instructions Indication:BMI 22.0-22.9, adult Start:10-Aug-2018 Instruction Type:Provider Instructions for Treatment How to access health informa tion online Indication:Non-smoker Start:07-Feb-2018 Instruction Type:Patient Education How to access health informa tion online - Detail Indication:Non-smoker Start:07-Feb-2018 Instruction Type:Patient Education Patient Instructions Indication:Non-smoker Start:07-Feb-2018 Instruction Type:Provider Instructions for Treatment How to access health informa tion online Indication:Non-smoker Start:06-Oct-2017 Instruction Type:Patient Education Patient Instructions Indication:Non-smoker Start:06-Oct-2017 Instruction Type:Provider Instructions for Treatment How to access health informa tion online Indication:Non-smoker Start:03-Jun-2017 Instruction Type:Patient Education How to access health informa tion online - Detail Indication:Non-smoker Start:03-Jun-2017 Instruction Type:Patient Education Patient Instructions Indication:Non-smoker Start:03-Jun-2017 Instruction Type:Provider Instructions for Treatment How to access health informa tion online Indication:Non-smoker Start:24-Feb-2017 Instruction Type:Patient Education How to access health informa tion online - Detail Indication:Non-smoker Start:24-Feb-2017 Instruction Type:Patient Education Patient Instructions Indication:Non-smoker Start:24-Feb-2017 Instruction Type:Provider Instructions for Treatment How to access health informa tion online Indication:Non-smoker Start:21-Oct-2016 Instruction Type:Patient Education How to access health informa tion online - Detail Indication:Non-smoker Start:21-Oct-2016 Instruction Type:Patient Education Patient Instructions Indication:Non-smoker Start:21-Oct-2016 Instruction Type:Provider Instructions for Treatment How to access health informa tion online Indication:Non-smoker Start:21-Jul-2016 Instruction Type:Patient Education How to access health informa tion online - Detail Indication:Non-smoker Start:21-Jul-2016 Instruction Type:Patient Education Patient Instructions Indication:Non-smoker Start:21-Jul-2016 Instruction Type:Provider Instructions for Treatment How to access health informa tion online Indication:Hypercholesteremia Start:23-Dec-2015 Instruction Type:Patient Education How to access health informa tion online - Detail Indication:Hypercholesteremia Start:23-Dec-2015 Instruction Type:Patient Education Patient Instructions Indication:Hypercholesteremia Start:23-Dec-2015 Instruction Type:Provider Instructions for Treatment How to access health informa tion online Indication:Encounter for Medicare annual wellness exam Start:03-Oct-2015 Instruction Type:Patient Education How to access health informa tion online - Detail Indication:Encounter for Medicare annual wellness exam Start:03-Oct-2015 Instruction Type:Patient Education Patient Instructions Indication:Encounter for Medicare annual wellness exam Start:03-Oct-2015 Instruction Type:Provider Instructions for Treatment How to access health informa tion online Indication:Hypercholesteremia Start:05-Sep-2015 Instruction Type:Patient Education How to access health informa tion online - Detail Indication:Hypercholesteremia Start:05-Sep-2015 Instruction Type:Patient Education Patient Instructions Indication:Hypercholesteremia Start:05-Sep-2015 Instruction Type:Provider Instructions for Treatment How to access health informa tion online Indication:Vitamin D deficiency Start:05-Jun-2015 Instruction Type:Patient Education How to access health informa tion online - Detail Indication:Vitamin D deficiency Start:05-Jun-2015 Instruction Type:Patient Education Patient Instructions Indication:Vitamin D deficiency Start:05-Jun-2015 Instruction Type:Provider Instructions for Treatment How to access health informa tion online Indication:Hypercholesteremia Start:06-Mar-2015 Instruction Type:Patient Education How to access health informa tion online - Detail Indication:Hypercholesteremia Start:06-Mar-2015 Instruction Type:Patient Education Patient Instructions Indication:Hypercholesteremia Start:06-Mar-2015 Instruction Type:Provider Instructions for Treatment How to access health informa tion online Indication:Depressive disorder Start:27-Nov-2014 Instruction Type:Patient Education How to access health informa tion online - Detail Indication:Depressive disorder Start:27-Nov-2014 Instruction Type:Patient Education Patient Instructions Indication:Depressive disorder Start:27-Nov-2014 Instruction Type:Provider Instructions for Treatment Patient Instructions Indication:Vitamin D deficiency Start:20-Jul-2014 Instruction Type:Provider Instructions for Treatment Patient Instructions Indication:Encounter for Medicare annual wellness exam Start:06-Apr-2014 Instruction Type:Provider Instructions for Treatment [facility]; [facility] Work Phone: Instructions* Name Dates Details Patient Instructions Indication:Vitamin D deficiency Start:12-Nov-2022 Instruction Type:Provider Instructions for Treatment How to Access Health Informa tion Online using Patient Portal and [employer]rd [employer] Apps Indication:Vitamin D deficiency Start:12-Nov-2022 Instruction Type:Patient Education How to Access Health Informa tion Online using Patient Portal and [employer]rd [employer] Apps Indication:Non-smoker Start:10-Sep-2022 Instruction Type:Patient Education Patient Instructions Indication:Non-smoker Start:10-Sep-2022 Instruction Type:Provider Instructions for Treatment Patient Instructions Indication:BMI 24.0-24.9, adult Start:11-May-2022 Instruction Type:Provider Instructions for Treatment How to Access Health Informa tion Online using Patient Portal and [employer]rd [employer] Apps Indication:BMI 24.0-24.9, adult Start:11-May-2022 Instruction Type:Patient Education Patient Instructions Indication:BMI 24.0-24.9, adult Start:20-Apr-2022 Instruction Type:Provider Instructions for Treatment How to Access Health Informa tion Online using Patient Portal and [employer]rd [employer] Apps Indication:BMI 24.0-24.9, adult Start:20-Apr-2022 Instruction Type:Patient Education Patient Instructions Indication:Non-smoker Start:27-Oct-2021 Instruction Type:Provider Instructions for Treatment How to Access Health Informa tion Online using Patient Portal and [employer]rd [employer] Apps Indication:Non-smoker Start:27-Oct-2021 Instruction Type:Patient Education Patient Instructions Indication:Non-smoker Start:18-Aug-2021 Instruction Type:Provider Instructions for Treatment How to Access Health Informa tion Online using Patient Portal and [employer]rd [employer] Apps Indication:Non-smoker Start:18-Aug-2021 Instruction Type:Patient Education Patient Instructions Indication:BMI 23.0-23.9, adult Start:18-Apr-2021 Instruction Type:Provider Instructions for Treatment How to Access Health Informa tion Online using Patient Portal and [employer]rd [employer] Apps Indication:BMI 23.0-23.9, adult Start:18-Apr-2021 Instruction Type:Patient Education Patient Instructions Indication:Non-smoker Start:15-Jan-2021 Instruction Type:Provider Instructions for Treatment How to Access Health Informa tion Online using Patient Portal and [employer]rd [employer] Apps Indication:Non-smoker Start:15-Jan-2021 Instruction Type:Patient Education Patient Instructions Indication:BMI 24.0-24.9, adult Start:24-Oct-2020 Instruction Type:Provider Instructions for Treatment How to Access Health Informa tion Online using Patient Portal and [employer]rd [employer] Apps Indication:BMI 24.0-24.9, adult Start:24-Oct-2020 Instruction Type:Patient Education Patient Instructions Indication:Non-smoker Start:16-Oct-2020 Instruction Type:Provider Instructions for Treatment How to Access Health Informa tion Online using Patient Portal and [employer]rd [employer] Apps Indication:Non-smoker Start:16-Oct-2020 Instruction Type:Patient Education How to Access Health Informa tion Online using Patient Portal and [employer]rd [employer] Apps Indication:Non-smoker Start:06-Mar-2020 Instruction Type:Patient Education Patient Instructions Indication:Non-smoker Start:06-Mar-2020 Instruction Type:Provider Instructions for Treatment Patient Instructions Indication:Coronavirus infection Start:04-Mar-2020 Instruction Type:Provider Instructions for Treatment How to Access Health Informa tion Online using Patient Portal and [employer]rd [employer] Apps Indication:Coronavirus infection Start:04-Mar-2020 Instruction Type:Patient Education How to Access Health Informa tion Online using Patient Portal and [employer]rd [employer] Apps Indication:Non-smoker Start:19-Feb-2020 Instruction Type:Patient Education Patient Instructions Indication:Non-smoker Start:19-Feb-2020 Instruction Type:Provider Instructions for Treatment How to access health informa tion online Indication:Non-smoker Start:18-Aug-2019 Instruction Type:Patient Education How to access health informa tion online - Detail Indication:Non-smoker Start:18-Aug-2019 Instruction Type:Patient Education Patient Instructions Indication:Non-smoker Start:18-Aug-2019 Instruction Type:Provider Instructions for Treatment How to access health informa tion online Indication:Non-smoker Start:09-Feb-2019 Instruction Type:Patient Education How to access health informa tion online - Detail Indication:Non-smoker Start:09-Feb-2019 Instruction Type:Patient Education Patient Instructions Indication:Non-smoker Start:09-Feb-2019 Instruction Type:Provider Instructions for Treatment How to access health informa tion online Indication:BMI 22.0-22.9, adult Start:19-Oct-2018 Instruction Type:Patient Education How to access health informa tion online - Detail Indication:BMI 22.0-22.9, adult Start:19-Oct-2018 Instruction Type:Patient Education Patient Instructions Indication:BMI 22.0-22.9, adult Start:19-Oct-2018 Instruction Type:Provider Instructions for Treatment How to access health informa tion online Indication:Non-smoker Start:10-Oct-2018 Instruction Type:Patient Education How to access health informa tion online - Detail Indication:Non-smoker Start:10-Oct-2018 Instruction Type:Patient Education Patient Instructions Indication:Non-smoker Start:10-Oct-2018 Instruction Type:Provider Instructions for Treatment How to access health informa tion online Indication:BMI 22.0-22.9, adult Start:10-Aug-2018 Instruction Type:Patient Education How to access health informa tion online - Detail Indication:BMI 22.0-22.9, adult Start:10-Aug-2018 Instruction Type:Patient Education Patient Instructions Indication:BMI 22.0-22.9, adult Start:10-Aug-2018 Instruction Type:Provider Instructions for Treatment How to access health informa tion online Indication:Non-smoker Start:07-Feb-2018 Instruction Type:Patient Education How to access health informa tion online - Detail Indication:Non-smoker Start:07-Feb-2018 Instruction Type:Patient Education Patient Instructions Indication:Non-smoker Start:07-Feb-2018 Instruction Type:Provider Instructions for Treatment How to access health informa tion online Indication:Non-smoker Start:06-Oct-2017 Instruction Type:Patient Education Patient Instructions Indication:Non-smoker Start:06-Oct-2017 Instruction Type:Provider Instructions for Treatment How to access health informa tion online Indication:Non-smoker Start:03-Jun-2017 Instruction Type:Patient Education How to access health informa tion online - Detail Indication:Non-smoker Start:03-Jun-2017 Instruction Type:Patient Education Patient Instructions Indication:Non-smoker Start:03-Jun-2017 Instruction Type:Provider Instructions for Treatment How to access health informa tion online Indication:Non-smoker Start:24-Feb-2017 Instruction Type:Patient Education How to access health informa tion online - Detail Indication:Non-smoker Start:24-Feb-2017 Instruction Type:Patient Education Patient Instructions Indication:Non-smoker Start:24-Feb-2017 Instruction Type:Provider Instructions for Treatment How to access health informa tion online Indication:Non-smoker Start:21-Oct-2016 Instruction Type:Patient Education How to access health informa tion online - Detail Indication:Non-smoker Start:21-Oct-2016 Instruction Type:Patient Education Patient Instructions Indication:Non-smoker Start:21-Oct-2016 Instruction Type:Provider Instructions for Treatment How to access health informa tion online Indication:Non-smoker Start:21-Jul-2016 Instruction Type:Patient Education How to access health informa tion online - Detail Indication:Non-smoker Start:21-Jul-2016 Instruction Type:Patient Education Patient Instructions Indication:Non-smoker Start:21-Jul-2016 Instruction Type:Provider Instructions for Treatment How to access health informa tion online Indication:Hypercholesteremia Start:23-Dec-2015 Instruction Type:Patient Education How to access health informa tion online - Detail Indication:Hypercholesteremia Start:23-Dec-2015 Instruction Type:Patient Education Patient Instructions Indication:Hypercholesteremia Start:23-Dec-2015 Instruction Type:Provider Instructions for Treatment How to access health informa tion online Indication:Encounter for Medicare annual wellness exam Start:03-Oct-2015 Instruction Type:Patient Education How to access health informa tion online - Detail Indication:Encounter for Medicare annual wellness exam Start:03-Oct-2015 Instruction Type:Patient Education Patient Instructions Indication:Encounter for Medicare annual wellness exam Start:03-Oct-2015 Instruction Type:Provider Instructions for Treatment How to access health informa tion online Indication:Hypercholesteremia Start:05-Sep-2015 Instruction Type:Patient Education How to access health informa tion online - Detail Indication:Hypercholesteremia Start:05-Sep-2015 Instruction Type:Patient Education Patient Instructions Indication:Hypercholesteremia Start:05-Sep-2015 Instruction Type:Provider Instructions for Treatment How to access health informa tion online Indication:Vitamin D deficiency Start:05-Jun-2015 Instruction Type:Patient Education How to access health informa tion online - Detail Indication:Vitamin D deficiency Start:05-Jun-2015 Instruction Type:Patient Education Patient Instructions Indication:Vitamin D deficiency Start:05-Jun-2015 Instruction Type:Provider Instructions for Treatment How to access health informa tion online Indication:Hypercholesteremia Start:06-Mar-2015 Instruction Type:Patient Education How to access health informa tion online - Detail Indication:Hypercholesteremia Start:06-Mar-2015 Instruction Type:Patient Education Patient Instructions Indication:Hypercholesteremia Start:06-Mar-2015 Instruction Type:Provider Instructions for Treatment How to access health informa tion online Indication:Depressive disorder Start:27-Nov-2014 Instruction Type:Patient Education How to access health informa tion online - Detail Indication:Depressive disorder Start:27-Nov-2014 Instruction Type:Patient Education Patient Instructions Indication:Depressive disorder Start:27-Nov-2014 Instruction Type:Provider Instructions for Treatment Patient Instructions Indication:Vitamin D deficiency Start:20-Jul-2014 Instruction Type:Provider Instructions for Treatment Patient Instructions Indication:Encounter for Medicare annual wellness exam Start:06-Apr-2014 Instruction Type:Provider Instructions for Treatment [facility]; [facility] Work Phone: Instructions* Name Dates Details Patient Instructions Indication:Vitamin D deficiency Start:12-Nov-2022 Instruction Type:Provider Instructions for Treatment How to Access Health Informa tion Online using Patient Portal and [employer]rd [employer] Apps Indication:Vitamin D deficiency Start:12-Nov-2022 Instruction Type:Patient Education How to Access Health Informa tion Online using Patient Portal and [employer]rd [employer] Apps Indication:Non-smoker Start:10-Sep-2022 Instruction Type:Patient Education Patient Instructions Indication:Non-smoker Start:10-Sep-2022 Instruction Type:Provider Instructions for Treatment Patient Instructions Indication:BMI 24.0-24.9, adult Start:11-May-2022 Instruction Type:Provider Instructions for Treatment How to Access Health Informa tion Online using Patient Portal and [employer]rd [employer] Apps Indication:BMI 24.0-24.9, adult Start:11-May-2022 Instruction Type:Patient Education Patient Instructions Indication:BMI 24.0-24.9, adult Start:20-Apr-2022 Instruction Type:Provider Instructions for Treatment How to Access Health Informa tion Online using Patient Portal and [employer]rd [employer] Apps Indication:BMI 24.0-24.9, adult Start:20-Apr-2022 Instruction Type:Patient Education Patient Instructions Indication:Non-smoker Start:27-Oct-2021 Instruction Type:Provider Instructions for Treatment How to Access Health Informa tion Online using Patient Portal and [employer]rd [employer] Apps Indication:Non-smoker Start:27-Oct-2021 Instruction Type:Patient Education Patient Instructions Indication:Non-smoker Start:18-Aug-2021 Instruction Type:Provider Instructions for Treatment How to Access Health Informa tion Online using Patient Portal and [employer] Apps Indication:Non-smoker Start:18-Aug-2021 Instruction Type:Patient Education Patient Instructions Indication:BMI 23.0-23.9, adult Start:18-Apr-2021 Instruction Type:Provider Instructions for Treatment How to Access Health Informa tion Online using Patient Portal and [employer]rd [employer] Apps Indication:BMI 23.0-23.9, adult Start:18-Apr-2021 Instruction Type:Patient Education Patient Instructions Indication:Non-smoker Start:15-Jan-2021 Instruction Type:Provider Instructions for Treatment How to Access Health Informa tion Online using Patient Portal and [employer]rd [employer] Apps Indication:Non-smoker Start:15-Jan-2021 Instruction Type:Patient Education Patient Instructions Indication:BMI 24.0-24.9, adult Start:24-Oct-2020 Instruction Type:Provider Instructions for Treatment How to Access Health Informa tion Online using Patient Portal and [employer]rd [employer] Apps Indication:BMI 24.0-24.9, adult Start:24-Oct-2020 Instruction Type:Patient Education Patient Instructions Indication:Non-smoker Start:16-Oct-2020 Instruction Type:Provider Instructions for Treatment How to Access Health Informa tion Online using Patient Portal and [employer]rd [employer] Apps Indication:Non-smoker Start:16-Oct-2020 Instruction Type:Patient Education How to Access Health Informa tion Online using Patient Portal and [employer]rd [employer] Apps Indication:Non-smoker Start:06-Mar-2020 Instruction Type:Patient Education Patient Instructions Indication:Non-smoker Start:06-Mar-2020 Instruction Type:Provider Instructions for Treatment Patient Instructions Indication:Coronavirus infection Start:04-Mar-2020 Instruction Type:Provider Instructions for Treatment How to Access Health Informa tion Online using Patient Portal and [employer]rd [employer] Apps Indication:Coronavirus infection Start:04-Mar-2020 Instruction Type:Patient Education How to Access Health Informa tion Online using Patient Portal and [employer]rd [employer] Apps Indication:Non-smoker Start:19-Feb-2020 Instruction Type:Patient Education Patient Instructions Indication:Non-smoker Start:19-Feb-2020 Instruction Type:Provider Instructions for Treatment How to access health informa tion online Indication:Non-smoker Start:18-Aug-2019 Instruction Type:Patient Education How to access health informa tion online - Detail Indication:Non-smoker Start:18-Aug-2019 Instruction Type:Patient Education Patient Instructions Indication:Non-smoker Start:18-Aug-2019 Instruction Type:Provider Instructions for Treatment How to access health informa tion online Indication:Non-smoker Start:09-Feb-2019 Instruction Type:Patient Education How to access health informa tion online - Detail Indication:Non-smoker Start:09-Feb-2019 Instruction Type:Patient Education Patient Instructions Indication:Non-smoker Start:09-Feb-2019 Instruction Type:Provider Instructions for Treatment How to access health informa tion online Indication:BMI 22.0-22.9, adult Start:19-Oct-2018 Instruction Type:Patient Education How to access health informa tion online - Detail Indication:BMI 22.0-22.9, adult Start:19-Oct-2018 Instruction Type:Patient Education Patient Instructions Indication:BMI 22.0-22.9, adult Start:19-Oct-2018 Instruction Type:Provider Instructions for Treatment How to access health informa tion online Indication:Non-smoker Start:10-Oct-2018 Instruction Type:Patient Education How to access health informa tion online - Detail Indication:Non-smoker Start:10-Oct-2018 Instruction Type:Patient Education Patient Instructions Indication:Non-smoker Start:10-Oct-2018 Instruction Type:Provider Instructions for Treatment How to access health informa tion online Indication:BMI 22.0-22.9, adult Start:10-Aug-2018 Instruction Type:Patient Education How to access health informa tion online - Detail Indication:BMI 22.0-22.9, adult Start:10-Aug-2018 Instruction Type:Patient Education Patient Instructions Indication:BMI 22.0-22.9, adult Start:10-Aug-2018 Instruction Type:Provider Instructions for Treatment How to access health informa tion online Indication:Non-smoker Start:07-Feb-2018 Instruction Type:Patient Education How to access health informa tion online - Detail Indication:Non-smoker Start:07-Feb-2018 Instruction Type:Patient Education Patient Instructions Indication:Non-smoker Start:07-Feb-2018 Instruction Type:Provider Instructions for Treatment How to access health informa tion online Indication:Non-smoker Start:06-Oct-2017 Instruction Type:Patient Education Patient Instructions Indication:Non-smoker Start:06-Oct-2017 Instruction Type:Provider Instructions for Treatment How to access health informa tion online Indication:Non-smoker Start:03-Jun-2017 Instruction Type:Patient Education How to access health informa tion online - Detail Indication:Non-smoker Start:03-Jun-2017 Instruction Type:Patient Education Patient Instructions Indication:Non-smoker Start:03-Jun-2017 Instruction Type:Provider Instructions for Treatment How to access health informa tion online Indication:Non-smoker Start:24-Feb-2017 Instruction Type:Patient Education How to access health informa tion online - Detail Indication:Non-smoker Start:24-Feb-2017 Instruction Type:Patient Education Patient Instructions Indication:Non-smoker Start:24-Feb-2017 Instruction Type:Provider Instructions for Treatment How to access health informa tion online Indication:Non-smoker Start:21-Oct-2016 Instruction Type:Patient Education How to access health informa tion online - Detail Indication:Non-smoker Start:21-Oct-2016 Instruction Type:Patient Education Patient Instructions Indication:Non-smoker Start:21-Oct-2016 Instruction Type:Provider Instructions for Treatment How to access health informa tion online Indication:Non-smoker Start:21-Jul-2016 Instruction Type:Patient Education How to access health informa tion online - Detail Indication:Non-smoker Start:21-Jul-2016 Instruction Type:Patient Education Patient Instructions Indication:Non-smoker Start:21-Jul-2016 Instruction Type:Provider Instructions for Treatment How to access health informa tion online Indication:Hypercholesteremia Start:23-Dec-2015 Instruction Type:Patient Education How to access health informa tion online - Detail Indication:Hypercholesteremia Start:23-Dec-2015 Instruction Type:Patient Education Patient Instructions Indication:Hypercholesteremia Start:23-Dec-2015 Instruction Type:Provider Instructions for Treatment How to access health informa tion online Indication:Encounter for Medicare annual wellness exam Start:03-Oct-2015 Instruction Type:Patient Education How to access health informa tion online - Detail Indication:Encounter for Medicare annual wellness exam Start:03-Oct-2015 Instruction Type:Patient Education Patient Instructions Indication:Encounter for Medicare annual wellness exam Start:03-Oct-2015 Instruction Type:Provider Instructions for Treatment How to access health informa tion online Indication:Hypercholesteremia Start:05-Sep-2015 Instruction Type:Patient Education How to access health informa tion online - Detail Indication:Hypercholesteremia Start:05-Sep-2015 Instruction Type:Patient Education Patient Instructions Indication:Hypercholesteremia Start:05-Sep-2015 Instruction Type:Provider Instructions for Treatment How to access health informa tion online Indication:Vitamin D deficiency Start:05-Jun-2015 Instruction Type:Patient Education How to access health informa tion online - Detail Indication:Vitamin D deficiency Start:05-Jun-2015 Instruction Type:Patient Education Patient Instructions Indication:Vitamin D deficiency Start:05-Jun-2015 Instruction Type:Provider Instructions for Treatment How to access health informa tion online Indication:Hypercholesteremia Start:06-Mar-2015 Instruction Type:Patient Education How to access health informa tion online - Detail Indication:Hypercholesteremia Start:06-Mar-2015 Instruction Type:Patient Education Patient Instructions Indication:Hypercholesteremia Start:06-Mar-2015 Instruction Type:Provider Instructions for Treatment How to access health informa tion online Indication:Depressive disorder Start:27-Nov-2014 Instruction Type:Patient Education How to access health informa tion online - Detail Indication:Depressive disorder Start:27-Nov-2014 Instruction Type:Patient Education Patient Instructions Indication:Depressive disorder Start:27-Nov-2014 Instruction Type:Provider Instructions for Treatment Patient Instructions Indication:Vitamin D deficiency Start:20-Jul-2014 Instruction Type:Provider Instructions for Treatment Patient Instructions Indication:Encounter for Medicare annual wellness exam Start:06-Apr-2014 Instruction Type:Provider Instructions for Treatment [facility] Work Phone: Instructions* Name Dates Details Patient Instructions Indication:Vitamin D deficiency Start:12-Nov-2022 Instruction Type:Provider Instructions for Treatment How to Access Health Informa tion Online using Patient Portal and 3rd [employer] Apps Indication:Vitamin D deficiency Start:12-Nov-2022 Instruction Type:Patient Education How to Access Health Informa tion Online using Patient Portal and 3rd [employer] Apps Indication:Non-smoker Start:10-Sep-2022 Instruction Type:Patient Education Patient Instructions Indication:Non-smoker Start:10-Sep-2022 Instruction Type:Provider Instructions for Treatment Patient Instructions Indication:BMI 24.0-24.9, adult Start:11-May-2022 Instruction Type:Provider Instructions for Treatment How to Access Health Informa tion Online using Patient Portal and 3rd [employer] Apps Indication:BMI 24.0-24.9, adult Start:11-May-2022 Instruction Type:Patient Education Patient Instructions Indication:BMI 24.0-24.9, adult Start:20-Apr-2022 Instruction Type:Provider Instructions for Treatment How to Access Health Informa tion Online using Patient Portal and 3rd [employer] Apps Indication:BMI 24.0-24.9, adult Start:20-Apr-2022 Instruction Type:Patient Education Patient Instructions Indication:Non-smoker Start:27-Oct-2021 Instruction Type:Provider Instructions for Treatment How to Access Health Informa tion Online using Patient Portal and 3rd [employer] Apps Indication:Non-smoker Start:27-Oct-2021 Instruction Type:Patient Education Patient Instructions Indication:Non-smoker Start:18-Aug-2021 Instruction Type:Provider Instructions for Treatment How to Access Health Informa tion Online using Patient Portal and 3rd [employer] Apps Indication:Non-smoker Start:18-Aug-2021 Instruction Type:Patient Education Patient Instructions Indication:BMI 23.0-23.9, adult Start:18-Apr-2021 Instruction Type:Provider Instructions for Treatment How to Access Health Informa tion Online using Patient Portal and 3rd [employer] Apps Indication:BMI 23.0-23.9, adult Start:18-Apr-2021 Instruction Type:Patient Education Patient Instructions Indication:Non-smoker Start:15-Jan-2021 Instruction Type:Provider Instructions for Treatment How to Access Health Informa tion Online using Patient Portal and [employer]rd [employer] Apps Indication:Non-smoker Start:15-Jan-2021 Instruction Type:Patient Education Patient Instructions Indication:BMI 24.0-24.9, adult Start:24-Oct-2020 Instruction Type:Provider Instructions for Treatment How to Access Health Informa tion Online using Patient Portal and 3rd [employer] Apps Indication:BMI 24.0-24.9, adult Start:24-Oct-2020 Instruction Type:Patient Education Patient Instructions Indication:Non-smoker Start:16-Oct-2020 Instruction Type:Provider Instructions for Treatment How to Access Health Informa tion Online using Patient Portal and [employer]rd [employer] Apps Indication:Non-smoker Start:16-Oct-2020 Instruction Type:Patient Education How to Access Health Informa tion Online using Patient Portal and [employer]rd [employer] Apps Indication:Non-smoker Start:06-Mar-2020 Instruction Type:Patient Education Patient Instructions Indication:Non-smoker Start:06-Mar-2020 Instruction Type:Provider Instructions for Treatment Patient Instructions Indication:Coronavirus infection Start:04-Mar-2020 Instruction Type:Provider Instructions for Treatment How to Access Health Informa tion Online using Patient Portal and 3rd [employer] Apps Indication:Coronavirus infection Start:04-Mar-2020 Instruction Type:Patient Education How to Access Health Informa tion Online using Patient Portal and [employer]rd [employer] Apps Indication:Non-smoker Start:19-Feb-2020 Instruction Type:Patient Education Patient Instructions Indication:Non-smoker Start:19-Feb-2020 Instruction Type:Provider Instructions for Treatment How to access health informa tion online Indication:Non-smoker Start:18-Aug-2019 Instruction Type:Patient Education How to access health informa tion online - Detail Indication:Non-smoker Start:18-Aug-2019 Instruction Type:Patient Education Patient Instructions Indication:Non-smoker Start:18-Aug-2019 Instruction Type:Provider Instructions for Treatment How to access health informa tion online Indication:Non-smoker Start:09-Feb-2019 Instruction Type:Patient Education How to access health informa tion online - Detail Indication:Non-smoker Start:09-Feb-2019 Instruction Type:Patient Education Patient Instructions Indication:Non-smoker Start:09-Feb-2019 Instruction Type:Provider Instructions for Treatment How to access health informa tion online Indication:BMI 22.0-22.9, adult Start:19-Oct-2018 Instruction Type:Patient Education How to access health informa tion online - Detail Indication:BMI 22.0-22.9, adult Start:19-Oct-2018 Instruction Type:Patient Education Patient Instructions Indication:BMI 22.0-22.9, adult Start:19-Oct-2018 Instruction Type:Provider Instructions for Treatment How to access health informa tion online Indication:Non-smoker Start:10-Oct-2018 Instruction Type:Patient Education How to access health informa tion online - Detail Indication:Non-smoker Start:10-Oct-2018 Instruction Type:Patient Education Patient Instructions Indication:Non-smoker Start:10-Oct-2018 Instruction Type:Provider Instructions for Treatment How to access health informa tion online Indication:BMI 22.0-22.9, adult Start:10-Aug-2018 Instruction Type:Patient Education How to access health informa tion online - Detail Indication:BMI 22.0-22.9, adult Start:10-Aug-2018 Instruction Type:Patient Education Patient Instructions Indication:BMI 22.0-22.9, adult Start:10-Aug-2018 Instruction Type:Provider Instructions for Treatment How to access health informa tion online Indication:Non-smoker Start:07-Feb-2018 Instruction Type:Patient Education How to access health informa tion online - Detail Indication:Non-smoker Start:07-Feb-2018 Instruction Type:Patient Education Patient Instructions Indication:Non-smoker Start:07-Feb-2018 Instruction Type:Provider Instructions for Treatment How to access health informa tion online Indication:Non-smoker Start:06-Oct-2017 Instruction Type:Patient Education Patient Instructions Indication:Non-smoker Start:06-Oct-2017 Instruction Type:Provider Instructions for Treatment How to access health informa tion online Indication:Non-smoker Start:03-Jun-2017 Instruction Type:Patient Education How to access health informa tion online - Detail Indication:Non-smoker Start:03-Jun-2017 Instruction Type:Patient Education Patient Instructions Indication:Non-smoker Start:03-Jun-2017 Instruction Type:Provider Instructions for Treatment How to access health informa tion online Indication:Non-smoker Start:24-Feb-2017 Instruction Type:Patient Education How to access health informa tion online - Detail Indication:Non-smoker Start:24-Feb-2017 Instruction Type:Patient Education Patient Instructions Indication:Non-smoker Start:24-Feb-2017 Instruction Type:Provider Instructions for Treatment How to access health informa tion online Indication:Non-smoker Start:21-Oct-2016 Instruction Type:Patient Education How to access health informa tion online - Detail Indication:Non-smoker Start:21-Oct-2016 Instruction Type:Patient Education Patient Instructions Indication:Non-smoker Start:21-Oct-2016 Instruction Type:Provider Instructions for Treatment How to access health informa tion online Indication:Non-smoker Start:21-Jul-2016 Instruction Type:Patient Education How to access health informa tion online - Detail Indication:Non-smoker Start:21-Jul-2016 Instruction Type:Patient Education Patient Instructions Indication:Non-smoker Start:21-Jul-2016 Instruction Type:Provider Instructions for Treatment How to access health informa tion online Indication:Hypercholesteremia Start:23-Dec-2015 Instruction Type:Patient Education How to access health informa tion online - Detail Indication:Hypercholesteremia Start:23-Dec-2015 Instruction Type:Patient Education Patient Instructions Indication:Hypercholesteremia Start:23-Dec-2015 Instruction Type:Provider Instructions for Treatment How to access health informa tion online Indication:Encounter for Medicare annual wellness exam Start:03-Oct-2015 Instruction Type:Patient Education How to access health informa tion online - Detail Indication:Encounter for Medicare annual wellness exam Start:03-Oct-2015 Instruction Type:Patient Education Patient Instructions Indication:Encounter for Medicare annual wellness exam Start:03-Oct-2015 Instruction Type:Provider Instructions for Treatment How to access health informa tion online Indication:Hypercholesteremia Start:05-Sep-2015 Instruction Type:Patient Education How to access health informa tion online - Detail Indication:Hypercholesteremia Start:05-Sep-2015 Instruction Type:Patient Education Patient Instructions Indication:Hypercholesteremia Start:05-Sep-2015 Instruction Type:Provider Instructions for Treatment How to access health informa tion online Indication:Vitamin D deficiency Start:05-Jun-2015 Instruction Type:Patient Education How to access health informa tion online - Detail Indication:Vitamin D deficiency Start:05-Jun-2015 Instruction Type:Patient Education Patient Instructions Indication:Vitamin D deficiency Start:05-Jun-2015 Instruction Type:Provider Instructions for Treatment How to access health informa tion online Indication:Hypercholesteremia Start:06-Mar-2015 Instruction Type:Patient Education How to access health informa tion online - Detail Indication:Hypercholesteremia Start:06-Mar-2015 Instruction Type:Patient Education Patient Instructions Indication:Hypercholesteremia Start:06-Mar-2015 Instruction Type:Provider Instructions for Treatment How to access health informa tion online Indication:Depressive disorder Start:27-Nov-2014 Instruction Type:Patient Education How to access health informa tion online - Detail Indication:Depressive disorder Start:27-Nov-2014 Instruction Type:Patient Education Patient Instructions Indication:Depressive disorder Start:27-Nov-2014 Instruction Type:Provider Instructions for Treatment Patient Instructions Indication:Vitamin D deficiency Start:20-Jul-2014 Instruction Type:Provider Instructions for Treatment Patient Instructions Indication:Encounter for Medicare annual wellness exam Start:06-Apr-2014 Instruction Type:Provider Instructions for Treatment [facility] Work Phone: Instructions* Name Dates Details Patient Instructions Indication:Vitamin D deficiency Start:12-Nov-2022 Instruction Type:Provider Instructions for Treatment How to Access Health Informa tion Online using Patient Portal and [employer]rd [employer] Apps Indication:Vitamin D deficiency Start:12-Nov-2022 Instruction Type:Patient Education How to Access Health Informa tion Online using Patient Portal and [employer]rd [employer] Apps Indication:Non-smoker Start:10-Sep-2022 Instruction Type:Patient Education Patient Instructions Indication:Non-smoker Start:10-Sep-2022 Instruction Type:Provider Instructions for Treatment Patient Instructions Indication:BMI 24.0-24.9, adult Start:11-May-2022 Instruction Type:Provider Instructions for Treatment How to Access Health Informa tion Online using Patient Portal and 3rd [employer] Apps Indication:BMI 24.0-24.9, adult Start:11-May-2022 Instruction Type:Patient Education Patient Instructions Indication:BMI 24.0-24.9, adult Start:20-Apr-2022 Instruction Type:Provider Instructions for Treatment How to Access Health Informa tion Online using Patient Portal and [employer]rd [employer] Apps Indication:BMI 24.0-24.9, adult Start:20-Apr-2022 Instruction Type:Patient Education Patient Instructions Indication:Non-smoker Start:27-Oct-2021 Instruction Type:Provider Instructions for Treatment How to Access Health Informa tion Online using Patient Portal and [employer]rd [employer] Apps Indication:Non-smoker Start:27-Oct-2021 Instruction Type:Patient Education Patient Instructions Indication:Non-smoker Start:18-Aug-2021 Instruction Type:Provider Instructions for Treatment How to Access Health Informa tion Online using Patient Portal and [employer]rd [employer] Apps Indication:Non-smoker Start:18-Aug-2021 Instruction Type:Patient Education Patient Instructions Indication:BMI 23.0-23.9, adult Start:18-Apr-2021 Instruction Type:Provider Instructions for Treatment How to Access Health Informa tion Online using Patient Portal and [employer]rd [employer] Apps Indication:BMI 23.0-23.9, adult Start:18-Apr-2021 Instruction Type:Patient Education Patient Instructions Indication:Non-smoker Start:15-Jan-2021 Instruction Type:Provider Instructions for Treatment How to Access Health Informa tion Online using Patient Portal and [employer]rd [employer] Apps Indication:Non-smoker Start:15-Jan-2021 Instruction Type:Patient Education Patient Instructions Indication:BMI 24.0-24.9, adult Start:24-Oct-2020 Instruction Type:Provider Instructions for Treatment How to Access Health Informa tion Online using Patient Portal and 3rd [employer] Apps Indication:BMI 24.0-24.9, adult Start:24-Oct-2020 Instruction Type:Patient Education Patient Instructions Indication:Non-smoker Start:16-Oct-2020 Instruction Type:Provider Instructions for Treatment How to Access Health Informa tion Online using Patient Portal and [employer]rd [employer] Apps Indication:Non-smoker Start:16-Oct-2020 Instruction Type:Patient Education How to Access Health Informa tion Online using Patient Portal and [employer]rd [employer] Apps Indication:Non-smoker Start:06-Mar-2020 Instruction Type:Patient Education Patient Instructions Indication:Non-smoker Start:06-Mar-2020 Instruction Type:Provider Instructions for Treatment Patient Instructions Indication:Coronavirus infection Start:04-Mar-2020 Instruction Type:Provider Instructions for Treatment How to Access Health Informa tion Online using Patient Portal and [employer]rd [employer] Apps Indication:Coronavirus infection Start:04-Mar-2020 Instruction Type:Patient Education How to Access Health Informa tion Online using Patient Portal and [employer]rd [employer] Apps Indication:Non-smoker Start:19-Feb-2020 Instruction Type:Patient Education Patient Instructions Indication:Non-smoker Start:19-Feb-2020 Instruction Type:Provider Instructions for Treatment How to access health informa tion online Indication:Non-smoker Start:18-Aug-2019 Instruction Type:Patient Education How to access health informa tion online - Detail Indication:Non-smoker Start:18-Aug-2019 Instruction Type:Patient Education Patient Instructions Indication:Non-smoker Start:18-Aug-2019 Instruction Type:Provider Instructions for Treatment How to access health informa tion online Indication:Non-smoker Start:09-Feb-2019 Instruction Type:Patient Education How to access health informa tion online - Detail Indication:Non-smoker Start:09-Feb-2019 Instruction Type:Patient Education Patient Instructions Indication:Non-smoker Start:09-Feb-2019 Instruction Type:Provider Instructions for Treatment How to access health informa tion online Indication:BMI 22.0-22.9, adult Start:19-Oct-2018 Instruction Type:Patient Education How to access health informa tion online - Detail Indication:BMI 22.0-22.9, adult Start:19-Oct-2018 Instruction Type:Patient Education Patient Instructions Indication:BMI 22.0-22.9, adult Start:19-Oct-2018 Instruction Type:Provider Instructions for Treatment How to access health informa tion online Indication:Non-smoker Start:10-Oct-2018 Instruction Type:Patient Education How to access health informa tion online - Detail Indication:Non-smoker Start:10-Oct-2018 Instruction Type:Patient Education Patient Instructions Indication:Non-smoker Start:10-Oct-2018 Instruction Type:Provider Instructions for Treatment How to access health informa tion online Indication:BMI 22.0-22.9, adult Start:10-Aug-2018 Instruction Type:Patient Education How to access health informa tion online - Detail Indication:BMI 22.0-22.9, adult Start:10-Aug-2018 Instruction Type:Patient Education Patient Instructions Indication:BMI 22.0-22.9, adult Start:10-Aug-2018 Instruction Type:Provider Instructions for Treatment How to access health informa tion online Indication:Non-smoker Start:07-Feb-2018 Instruction Type:Patient Education How to access health informa tion online - Detail Indication:Non-smoker Start:07-Feb-2018 Instruction Type:Patient Education Patient Instructions Indication:Non-smoker Start:07-Feb-2018 Instruction Type:Provider Instructions for Treatment How to access health informa tion online Indication:Non-smoker Start:06-Oct-2017 Instruction Type:Patient Education Patient Instructions Indication:Non-smoker Start:06-Oct-2017 Instruction Type:Provider Instructions for Treatment How to access health informa tion online Indication:Non-smoker Start:03-Jun-2017 Instruction Type:Patient Education How to access health informa tion online - Detail Indication:Non-smoker Start:03-Jun-2017 Instruction Type:Patient Education Patient Instructions Indication:Non-smoker Start:03-Jun-2017 Instruction Type:Provider Instructions for Treatment How to access health informa tion online Indication:Non-smoker Start:24-Feb-2017 Instruction Type:Patient Education How to access health informa tion online - Detail Indication:Non-smoker Start:24-Feb-2017 Instruction Type:Patient Education Patient Instructions Indication:Non-smoker Start:24-Feb-2017 Instruction Type:Provider Instructions for Treatment How to access health informa tion online Indication:Non-smoker Start:21-Oct-2016 Instruction Type:Patient Education How to access health informa tion online - Detail Indication:Non-smoker Start:21-Oct-2016 Instruction Type:Patient Education Patient Instructions Indication:Non-smoker Start:21-Oct-2016 Instruction Type:Provider Instructions for Treatment How to access health informa tion online Indication:Non-smoker Start:21-Jul-2016 Instruction Type:Patient Education How to access health informa tion online - Detail Indication:Non-smoker Start:21-Jul-2016 Instruction Type:Patient Education Patient Instructions Indication:Non-smoker Start:21-Jul-2016 Instruction Type:Provider Instructions for Treatment How to access health informa tion online Indication:Hypercholesteremia Start:23-Dec-2015 Instruction Type:Patient Education How to access health informa tion online - Detail Indication:Hypercholesteremia Start:23-Dec-2015 Instruction Type:Patient Education Patient Instructions Indication:Hypercholesteremia Start:23-Dec-2015 Instruction Type:Provider Instructions for Treatment How to access health informa tion online Indication:Encounter for Medicare annual wellness exam Start:03-Oct-2015 Instruction Type:Patient Education How to access health informa tion online - Detail Indication:Encounter for Medicare annual wellness exam Start:03-Oct-2015 Instruction Type:Patient Education Patient Instructions Indication:Encounter for Medicare annual wellness exam Start:03-Oct-2015 Instruction Type:Provider Instructions for Treatment How to access health informa tion online Indication:Hypercholesteremia Start:05-Sep-2015 Instruction Type:Patient Education How to access health informa tion online - Detail Indication:Hypercholesteremia Start:05-Sep-2015 Instruction Type:Patient Education Patient Instructions Indication:Hypercholesteremia Start:05-Sep-2015 Instruction Type:Provider Instructions for Treatment How to access health informa tion online Indication:Vitamin D deficiency Start:05-Jun-2015 Instruction Type:Patient Education How to access health informa tion online - Detail Indication:Vitamin D deficiency Start:05-Jun-2015 Instruction Type:Patient Education Patient Instructions Indication:Vitamin D deficiency Start:05-Jun-2015 Instruction Type:Provider Instructions for Treatment How to access health informa tion online Indication:Hypercholesteremia Start:06-Mar-2015 Instruction Type:Patient Education How to access health informa tion online - Detail Indication:Hypercholesteremia Start:06-Mar-2015 Instruction Type:Patient Education Patient Instructions Indication:Hypercholesteremia Start:06-Mar-2015 Instruction Type:Provider Instructions for Treatment How to access health informa tion online Indication:Depressive disorder Start:27-Nov-2014 Instruction Type:Patient Education How to access health informa tion online - Detail Indication:Depressive disorder Start:27-Nov-2014 Instruction Type:Patient Education Patient Instructions Indication:Depressive disorder Start:27-Nov-2014 Instruction Type:Provider Instructions for Treatment Patient Instructions Indication:Vitamin D deficiency Start:20-Jul-2014 Instruction Type:Provider Instructions for Treatment Patient Instructions Indication:Encounter for Medicare annual wellness exam Start:06-Apr-2014 Instruction Type:Provider Instructions for Treatment [facility] Work Phone: reason for referral (narrative)No reason for referral information availableWSum[facility] Work Phone: Instructions Name Dates Details Non-smoker : How to access h ealth information online Indication:Non-smoker Non-smoker : How to access h ealth information online - Detail Indication:Non-smoker Non-smoker : Patient Instruc tions Indication:Non-smoker Hypercholesteremia : How to access health information online Indication:Hypercholesteremia Hypercholesteremia : How to access health information online - Detail Indication:Hypercholesteremia Hypercholesteremia : Patient Instructions Indication:Hypercholesteremia Encounter for Medicare annua l wellness exam : How to access health information online Indication:Encounter for Medicare annual wellness exam Encounter for Medicare annua l wellness exam : How to access health information online - Detail Indication:Encounter for Medicare annual wellness exam Encounter for Medicare annua l wellness exam : Patient Instructions Indication:Encounter for Medicare annual wellness exam Vitamin D deficiency : How t o access health information online Indication:Vitamin D deficiency Vitamin D deficiency : How t o access health information online - Detail Indication:Vitamin D deficiency Vitamin D deficiency : Patie nt Instructions Indication:Vitamin D deficiency Depressive disorder : How to access health information online Indication:Depressive disorder Depressive disorder : How to access health information online - Detail Indication:Depressive disorder Depressive disorder : Patien t Instructions Indication:Depressive disorder Name Dates Details Non-smoker : How to access h ealth information online Indication:Non-smoker Non-smoker : How to access h ealth information online - Detail Indication:Non-smoker Non-smoker : Patient Instruc tions Indication:Non-smoker Hypercholesteremia : How to access health information online Indication:Hypercholesteremia Hypercholesteremia : How to access health information online - Detail Indication:Hypercholesteremia Hypercholesteremia : Patient Instructions Indication:Hypercholesteremia Encounter for Medicare annua l wellness exam : How to access health information online Indication:Encounter for Medicare annual wellness exam Encounter for Medicare annua l wellness exam : How to access health information online - Detail Indication:Encounter for Medicare annual wellness exam Encounter for Medicare annua l wellness exam : Patient Instructions Indication:Encounter for Medicare annual wellness exam Vitamin D deficiency : How t o access health information online Indication:Vitamin D deficiency Vitamin D deficiency : How t o access health information online - Detail Indication:Vitamin D deficiency Vitamin D deficiency : Patie nt Instructions Indication:Vitamin D deficiency Depressive disorder : How to access health information online Indication:Depressive disorder Depressive disorder : How to access health information online - Detail Indication:Depressive disorder Depressive disorder : Patien t Instructions Indication:Depressive disorder Name Dates Details How to access health informa tion online Indication:BMI 22.0-22.9, adult Start:10-Aug-2018 Instruction Type:Patient Education How to access health informa tion online - Detail Indication:BMI 22.0-22.9, adult Start:10-Aug-2018 Instruction Type:Patient Education Patient Instructions Indication:BMI 22.0-22.9, adult Start:10-Aug-2018 Instruction Type:Provider Instructions for Treatment How to access health informa tion online Indication:Non-smoker Start:07-Feb-2018 Instruction Type:Patient Education How to access health informa tion online - Detail Indication:Non-smoker Start:07-Feb-2018 Instruction Type:Patient Education Patient Instructions Indication:Non-smoker Start:07-Feb-2018 Instruction Type:Provider Instructions for Treatment How to access health informa tion online Indication:Non-smoker Start:06-Oct-2017 Instruction Type:Patient Education Patient Instructions Indication:Non-smoker Start:06-Oct-2017 Instruction Type:Provider Instructions for Treatment How to access health informa tion online Indication:Non-smoker Start:03-Jun-2017 Instruction Type:Patient Education How to access health informa tion online - Detail Indication:Non-smoker Start:03-Jun-2017 Instruction Type:Patient Education Patient Instructions Indication:Non-smoker Start:03-Jun-2017 Instruction Type:Provider Instructions for Treatment How to access health informa tion online Indication:Non-smoker Start:24-Feb-2017 Instruction Type:Patient Education How to access health informa tion online - Detail Indication:Non-smoker Start:24-Feb-2017 Instruction Type:Patient Education Patient Instructions Indication:Non-smoker Start:24-Feb-2017 Instruction Type:Provider Instructions for Treatment How to access health informa tion online Indication:Non-smoker Start:21-Oct-2016 Instruction Type:Patient Education How to access health informa tion online - Detail Indication:Non-smoker Start:21-Oct-2016 Instruction Type:Patient Education Patient Instructions Indication:Non-smoker Start:21-Oct-2016 Instruction Type:Provider Instructions for Treatment How to access health informa tion online Indication:Non-smoker Start:21-Jul-2016 Instruction Type:Patient Education How to access health informa tion online - Detail Indication:Non-smoker Start:21-Jul-2016 Instruction Type:Patient Education Patient Instructions Indication:Non-smoker Start:21-Jul-2016 Instruction Type:Provider Instructions for Treatment How to access health informa tion online Indication:Hypercholesteremia Start:23-Dec-2015 Instruction Type:Patient Education How to access health informa tion online - Detail Indication:Hypercholesteremia Start:23-Dec-2015 Instruction Type:Patient Education Patient Instructions Indication:Hypercholesteremia Start:23-Dec-2015 Instruction Type:Provider Instructions for Treatment How to access health informa tion online Indication:Encounter for Medicare annual wellness exam Start:03-Oct-2015 Instruction Type:Patient Education How to access health informa tion online - Detail Indication:Encounter for Medicare annual wellness exam Start:03-Oct-2015 Instruction Type:Patient Education Patient Instructions Indication:Encounter for Medicare annual wellness exam Start:03-Oct-2015 Instruction Type:Provider Instructions for Treatment How to access health informa tion online Indication:Hypercholesteremia Start:05-Sep-2015 Instruction Type:Patient Education How to access health informa tion online - Detail Indication:Hypercholesteremia Start:05-Sep-2015 Instruction Type:Patient Education Patient Instructions Indication:Hypercholesteremia Start:05-Sep-2015 Instruction Type:Provider Instructions for Treatment How to access health informa tion online Indication:Vitamin D deficiency Start:05-Jun-2015 Instruction Type:Patient Education How to access health informa tion online - Detail Indication:Vitamin D deficiency Start:05-Jun-2015 Instruction Type:Patient Education Patient Instructions Indication:Vitamin D deficiency Start:05-Jun-2015 Instruction Type:Provider Instructions for Treatment How to access health informa tion online Indication:Hypercholesteremia Start:06-Mar-2015 Instruction Type:Patient Education How to access health informa tion online - Detail Indication:Hypercholesteremia Start:06-Mar-2015 Instruction Type:Patient Education Patient Instructions Indication:Hypercholesteremia Start:06-Mar-2015 Instruction Type:Provider Instructions for Treatment How to access health informa tion online Indication:Depressive disorder Start:27-Nov-2014 Instruction Type:Patient Education How to access health informa tion online - Detail Indication:Depressive disorder Start:27-Nov-2014 Instruction Type:Patient Education Patient Instructions Indication:Depressive disorder Start:27-Nov-2014 Instruction Type:Provider Instructions for Treatment Patient Instructions Indication:Vitamin D deficiency Start:20-Jul-2014 Instruction Type:Provider Instructions for Treatment Patient Instructions Indication:Encounter for Medicare annual wellness exam Start:06-Apr-2014 Instruction Type:Provider Instructions for Treatment Name Dates Details How to access health informa tion online Indication:Non-smoker Start:10-Oct-2018 Instruction Type:Patient Education How to access health informa tion online - Detail Indication:Non-smoker Start:10-Oct-2018 Instruction Type:Patient Education Patient Instructions Indication:Non-smoker Start:10-Oct-2018 Instruction Type:Provider Instructions for Treatment How to access health informa tion online Indication:BMI 22.0-22.9, adult Start:10-Aug-2018 Instruction Type:Patient Education How to access health informa tion online - Detail Indication:BMI 22.0-22.9, adult Start:10-Aug-2018 Instruction Type:Patient Education Patient Instructions Indication:BMI 22.0-22.9, adult Start:10-Aug-2018 Instruction Type:Provider Instructions for Treatment How to access health informa tion online Indication:Non-smoker Start:07-Feb-2018 Instruction Type:Patient Education How to access health informa tion online - Detail Indication:Non-smoker Start:07-Feb-2018 Instruction Type:Patient Education Patient Instructions Indication:Non-smoker Start:07-Feb-2018 Instruction Type:Provider Instructions for Treatment How to access health informa tion online Indication:Non-smoker Start:06-Oct-2017 Instruction Type:Patient Education Patient Instructions Indication:Non-smoker Start:06-Oct-2017 Instruction Type:Provider Instructions for Treatment How to access health informa tion online Indication:Non-smoker Start:03-Jun-2017 Instruction Type:Patient Education How to access health informa tion online - Detail Indication:Non-smoker Start:03-Jun-2017 Instruction Type:Patient Education Patient Instructions Indication:Non-smoker Start:03-Jun-2017 Instruction Type:Provider Instructions for Treatment How to access health informa tion online Indication:Non-smoker Start:24-Feb-2017 Instruction Type:Patient Education How to access health informa tion online - Detail Indication:Non-smoker Start:24-Feb-2017 Instruction Type:Patient Education Patient Instructions Indication:Non-smoker Start:24-Feb-2017 Instruction Type:Provider Instructions for Treatment How to access health informa tion online Indication:Non-smoker Start:21-Oct-2016 Instruction Type:Patient Education How to access health informa tion online - Detail Indication:Non-smoker Start:21-Oct-2016 Instruction Type:Patient Education Patient Instructions Indication:Non-smoker Start:21-Oct-2016 Instruction Type:Provider Instructions for Treatment How to access health informa tion online Indication:Non-smoker Start:21-Jul-2016 Instruction Type:Patient Education How to access health informa tion online - Detail Indication:Non-smoker Start:21-Jul-2016 Instruction Type:Patient Education Patient Instructions Indication:Non-smoker Start:21-Jul-2016 Instruction Type:Provider Instructions for Treatment How to access health informa tion online Indication:Hypercholesteremia Start:23-Dec-2015 Instruction Type:Patient Education How to access health informa tion online - Detail Indication:Hypercholesteremia Start:23-Dec-2015 Instruction Type:Patient Education Patient Instructions Indication:Hypercholesteremia Start:23-Dec-2015 Instruction Type:Provider Instructions for Treatment How to access health informa tion online Indication:Encounter for Medicare annual wellness exam Start:03-Oct-2015 Instruction Type:Patient Education How to access health informa tion online - Detail Indication:Encounter for Medicare annual wellness exam Start:03-Oct-2015 Instruction Type:Patient Education Patient Instructions Indication:Encounter for Medicare annual wellness exam Start:03-Oct-2015 Instruction Type:Provider Instructions for Treatment How to access health informa tion online Indication:Hypercholesteremia Start:05-Sep-2015 Instruction Type:Patient Education How to access health informa tion online - Detail Indication:Hypercholesteremia Start:05-Sep-2015 Instruction Type:Patient Education Patient Instructions Indication:Hypercholesteremia Start:05-Sep-2015 Instruction Type:Provider Instructions for Treatment How to access health informa tion online Indication:Vitamin D deficiency Start:05-Jun-2015 Instruction Type:Patient Education How to access health informa tion online - Detail Indication:Vitamin D deficiency Start:05-Jun-2015 Instruction Type:Patient Education Patient Instructions Indication:Vitamin D deficiency Start:05-Jun-2015 Instruction Type:Provider Instructions for Treatment How to access health informa tion online Indication:Hypercholesteremia Start:06-Mar-2015 Instruction Type:Patient Education How to access health informa tion online - Detail Indication:Hypercholesteremia Start:06-Mar-2015 Instruction Type:Patient Education Patient Instructions Indication:Hypercholesteremia Start:06-Mar-2015 Instruction Type:Provider Instructions for Treatment How to access health informa tion online Indication:Depressive disorder Start:27-Nov-2014 Instruction Type:Patient Education How to access health informa tion online - Detail Indication:Depressive disorder Start:27-Nov-2014 Instruction Type:Patient Education Patient Instructions Indication:Depressive disorder Start:27-Nov-2014 Instruction Type:Provider Instructions for Treatment Patient Instructions Indication:Vitamin D deficiency Start:20-Jul-2014 Instruction Type:Provider Instructions for Treatment Patient Instructions Indication:Encounter for Medicare annual wellness exam Start:06-Apr-2014 Instruction Type:Provider Instructions for Treatment Name Dates Details How to access health informa tion online Indication:Non-smoker Start:10-Oct-2018 Instruction Type:Patient Education How to access health informa tion online - Detail Indication:Non-smoker Start:10-Oct-2018 Instruction Type:Patient Education Patient Instructions Indication:Non-smoker Start:10-Oct-2018 Instruction Type:Provider Instructions for Treatment How to access health informa tion online Indication:BMI 22.0-22.9, adult Start:10-Aug-2018 Instruction Type:Patient Education How to access health informa tion online - Detail Indication:BMI 22.0-22.9, adult Start:10-Aug-2018 Instruction Type:Patient Education Patient Instructions Indication:BMI 22.0-22.9, adult Start:10-Aug-2018 Instruction Type:Provider Instructions for Treatment How to access health informa tion online Indication:Non-smoker Start:07-Feb-2018 Instruction Type:Patient Education How to access health informa tion online - Detail Indication:Non-smoker Start:07-Feb-2018 Instruction Type:Patient Education Patient Instructions Indication:Non-smoker Start:07-Feb-2018 Instruction Type:Provider Instructions for Treatment How to access health informa tion online Indication:Non-smoker Start:06-Oct-2017 Instruction Type:Patient Education Patient Instructions Indication:Non-smoker Start:06-Oct-2017 Instruction Type:Provider Instructions for Treatment How to access health informa tion online Indication:Non-smoker Start:03-Jun-2017 Instruction Type:Patient Education How to access health informa tion online - Detail Indication:Non-smoker Start:03-Jun-2017 Instruction Type:Patient Education Patient Instructions Indication:Non-smoker Start:03-Jun-2017 Instruction Type:Provider Instructions for Treatment How to access health informa tion online Indication:Non-smoker Start:24-Feb-2017 Instruction Type:Patient Education How to access health informa tion online - Detail Indication:Non-smoker Start:24-Feb-2017 Instruction Type:Patient Education Patient Instructions Indication:Non-smoker Start:24-Feb-2017 Instruction Type:Provider Instructions for Treatment How to access health informa tion online Indication:Non-smoker Start:21-Oct-2016 Instruction Type:Patient Education How to access health informa tion online - Detail Indication:Non-smoker Start:21-Oct-2016 Instruction Type:Patient Education Patient Instructions Indication:Non-smoker Start:21-Oct-2016 Instruction Type:Provider Instructions for Treatment How to access health informa tion online Indication:Non-smoker Start:21-Jul-2016 Instruction Type:Patient Education How to access health informa tion online - Detail Indication:Non-smoker Start:21-Jul-2016 Instruction Type:Patient Education Patient Instructions Indication:Non-smoker Start:21-Jul-2016 Instruction Type:Provider Instructions for Treatment How to access health informa tion online Indication:Hypercholesteremia Start:23-Dec-2015 Instruction Type:Patient Education How to access health informa tion online - Detail Indication:Hypercholesteremia Start:23-Dec-2015 Instruction Type:Patient Education Patient Instructions Indication:Hypercholesteremia Start:23-Dec-2015 Instruction Type:Provider Instructions for Treatment How to access health informa tion online Indication:Encounter for Medicare annual wellness exam Start:03-Oct-2015 Instruction Type:Patient Education How to access health informa tion online - Detail Indication:Encounter for Medicare annual wellness exam Start:03-Oct-2015 Instruction Type:Patient Education Patient Instructions Indication:Encounter for Medicare annual wellness exam Start:03-Oct-2015 Instruction Type:Provider Instructions for Treatment How to access health informa tion online Indication:Hypercholesteremia Start:05-Sep-2015 Instruction Type:Patient Education How to access health informa tion online - Detail Indication:Hypercholesteremia Start:05-Sep-2015 Instruction Type:Patient Education Patient Instructions Indication:Hypercholesteremia Start:05-Sep-2015 Instruction Type:Provider Instructions for Treatment How to access health informa tion online Indication:Vitamin D deficiency Start:05-Jun-2015 Instruction Type:Patient Education How to access health informa tion online - Detail Indication:Vitamin D deficiency Start:05-Jun-2015 Instruction Type:Patient Education Patient Instructions Indication:Vitamin D deficiency Start:05-Jun-2015 Instruction Type:Provider Instructions for Treatment How to access health informa tion online Indication:Hypercholesteremia Start:06-Mar-2015 Instruction Type:Patient Education How to access health informa tion online - Detail Indication:Hypercholesteremia Start:06-Mar-2015 Instruction Type:Patient Education Patient Instructions Indication:Hypercholesteremia Start:06-Mar-2015 Instruction Type:Provider Instructions for Treatment How to access health informa tion online Indication:Depressive disorder Start:27-Nov-2014 Instruction Type:Patient Education How to access health informa tion online - Detail Indication:Depressive disorder Start:27-Nov-2014 Instruction Type:Patient Education Patient Instructions Indication:Depressive disorder Start:27-Nov-2014 Instruction Type:Provider Instructions for Treatment Patient Instructions Indication:Vitamin D deficiency Start:20-Jul-2014 Instruction Type:Provider Instructions for Treatment Patient Instructions Indication:Encounter for Medicare annual wellness exam Start:06-Apr-2014 Instruction Type:Provider Instructions for Treatment Name Dates Details How to access health informa tion online Indication:BMI 22.0-22.9, adult Start:19-Oct-2018 Instruction Type:Patient Education How to access health informa tion online - Detail Indication:BMI 22.0-22.9, adult Start:19-Oct-2018 Instruction Type:Patient Education Patient Instructions Indication:BMI 22.0-22.9, adult Start:19-Oct-2018 Instruction Type:Provider Instructions for Treatment How to access health informa tion online Indication:Non-smoker Start:10-Oct-2018 Instruction Type:Patient Education How to access health informa tion online - Detail Indication:Non-smoker Start:10-Oct-2018 Instruction Type:Patient Education Patient Instructions Indication:Non-smoker Start:10-Oct-2018 Instruction Type:Provider Instructions for Treatment How to access health informa tion online Indication:BMI 22.0-22.9, adult Start:10-Aug-2018 Instruction Type:Patient Education How to access health informa tion online - Detail Indication:BMI 22.0-22.9, adult Start:10-Aug-2018 Instruction Type:Patient Education Patient Instructions Indication:BMI 22.0-22.9, adult Start:10-Aug-2018 Instruction Type:Provider Instructions for Treatment How to access health informa tion online Indication:Non-smoker Start:07-Feb-2018 Instruction Type:Patient Education How to access health informa tion online - Detail Indication:Non-smoker Start:07-Feb-2018 Instruction Type:Patient Education Patient Instructions Indication:Non-smoker Start:07-Feb-2018 Instruction Type:Provider Instructions for Treatment How to access health informa tion online Indication:Non-smoker Start:06-Oct-2017 Instruction Type:Patient Education Patient Instructions Indication:Non-smoker Start:06-Oct-2017 Instruction Type:Provider Instructions for Treatment How to access health informa tion online Indication:Non-smoker Start:03-Jun-2017 Instruction Type:Patient Education How to access health informa tion online - Detail Indication:Non-smoker Start:03-Jun-2017 Instruction Type:Patient Education Patient Instructions Indication:Non-smoker Start:03-Jun-2017 Instruction Type:Provider Instructions for Treatment How to access health informa tion online Indication:Non-smoker Start:24-Feb-2017 Instruction Type:Patient Education How to access health informa tion online - Detail Indication:Non-smoker Start:24-Feb-2017 Instruction Type:Patient Education Patient Instructions Indication:Non-smoker Start:24-Feb-2017 Instruction Type:Provider Instructions for Treatment How to access health informa tion online Indication:Non-smoker Start:21-Oct-2016 Instruction Type:Patient Education How to access health informa tion online - Detail Indication:Non-smoker Start:21-Oct-2016 Instruction Type:Patient Education Patient Instructions Indication:Non-smoker Start:21-Oct-2016 Instruction Type:Provider Instructions for Treatment How to access health informa tion online Indication:Non-smoker Start:21-Jul-2016 Instruction Type:Patient Education How to access health informa tion online - Detail Indication:Non-smoker Start:21-Jul-2016 Instruction Type:Patient Education Patient Instructions Indication:Non-smoker Start:21-Jul-2016 Instruction Type:Provider Instructions for Treatment How to access health informa tion online Indication:Hypercholesteremia Start:23-Dec-2015 Instruction Type:Patient Education How to access health informa tion online - Detail Indication:Hypercholesteremia Start:23-Dec-2015 Instruction Type:Patient Education Patient Instructions Indication:Hypercholesteremia Start:23-Dec-2015 Instruction Type:Provider Instructions for Treatment How to access health informa tion online Indication:Encounter for Medicare annual wellness exam Start:03-Oct-2015 Instruction Type:Patient Education How to access health informa tion online - Detail Indication:Encounter for Medicare annual wellness exam Start:03-Oct-2015 Instruction Type:Patient Education Patient Instructions Indication:Encounter for Medicare annual wellness exam Start:03-Oct-2015 Instruction Type:Provider Instructions for Treatment How to access health informa tion online Indication:Hypercholesteremia Start:05-Sep-2015 Instruction Type:Patient Education How to access health informa tion online - Detail Indication:Hypercholesteremia Start:05-Sep-2015 Instruction Type:Patient Education Patient Instructions Indication:Hypercholesteremia Start:05-Sep-2015 Instruction Type:Provider Instructions for Treatment How to access health informa tion online Indication:Vitamin D deficiency Start:05-Jun-2015 Instruction Type:Patient Education How to access health informa tion online - Detail Indication:Vitamin D deficiency Start:05-Jun-2015 Instruction Type:Patient Education Patient Instructions Indication:Vitamin D deficiency Start:05-Jun-2015 Instruction Type:Provider Instructions for Treatment How to access health informa tion online Indication:Hypercholesteremia Start:06-Mar-2015 Instruction Type:Patient Education How to access health informa tion online - Detail Indication:Hypercholesteremia Start:06-Mar-2015 Instruction Type:Patient Education Patient Instructions Indication:Hypercholesteremia Start:06-Mar-2015 Instruction Type:Provider Instructions for Treatment How to access health informa tion online Indication:Depressive disorder Start:27-Nov-2014 Instruction Type:Patient Education How to access health informa tion online - Detail Indication:Depressive disorder Start:27-Nov-2014 Instruction Type:Patient Education Patient Instructions Indication:Depressive disorder Start:27-Nov-2014 Instruction Type:Provider Instructions for Treatment Patient Instructions Indication:Vitamin D deficiency Start:20-Jul-2014 Instruction Type:Provider Instructions for Treatment Patient Instructions Indication:Encounter for Medicare annual wellness exam Start:06-Apr-2014 Instruction Type:Provider Instructions for Treatment Name Dates Details How to access health informa tion online Indication:Non-smoker Start:18-Aug-2019 Instruction Type:Patient Education How to access health informa tion online - Detail Indication:Non-smoker Start:18-Aug-2019 Instruction Type:Patient Education Patient Instructions Indication:Non-smoker Start:18-Aug-2019 Instruction Type:Provider Instructions for Treatment How to access health informa tion online Indication:Non-smoker Start:09-Feb-2019 Instruction Type:Patient Education How to access health informa tion online - Detail Indication:Non-smoker Start:09-Feb-2019 Instruction Type:Patient Education Patient Instructions Indication:Non-smoker Start:09-Feb-2019 Instruction Type:Provider Instructions for Treatment How to access health informa tion online Indication:BMI 22.0-22.9, adult Start:19-Oct-2018 Instruction Type:Patient Education How to access health informa tion online - Detail Indication:BMI 22.0-22.9, adult Start:19-Oct-2018 Instruction Type:Patient Education Patient Instructions Indication:BMI 22.0-22.9, adult Start:19-Oct-2018 Instruction Type:Provider Instructions for Treatment How to access health informa tion online Indication:Non-smoker Start:10-Oct-2018 Instruction Type:Patient Education How to access health informa tion online - Detail Indication:Non-smoker Start:10-Oct-2018 Instruction Type:Patient Education Patient Instructions Indication:Non-smoker Start:10-Oct-2018 Instruction Type:Provider Instructions for Treatment How to access health informa tion online Indication:BMI 22.0-22.9, adult Start:10-Aug-2018 Instruction Type:Patient Education How to access health informa tion online - Detail Indication:BMI 22.0-22.9, adult Start:10-Aug-2018 Instruction Type:Patient Education Patient Instructions Indication:BMI 22.0-22.9, adult Start:10-Aug-2018 Instruction Type:Provider Instructions for Treatment How to access health informa tion online Indication:Non-smoker Start:07-Feb-2018 Instruction Type:Patient Education How to access health informa tion online - Detail Indication:Non-smoker Start:07-Feb-2018 Instruction Type:Patient Education Patient Instructions Indication:Non-smoker Start:07-Feb-2018 Instruction Type:Provider Instructions for Treatment How to access health informa tion online Indication:Non-smoker Start:06-Oct-2017 Instruction Type:Patient Education Patient Instructions Indication:Non-smoker Start:06-Oct-2017 Instruction Type:Provider Instructions for Treatment How to access health informa tion online Indication:Non-smoker Start:03-Jun-2017 Instruction Type:Patient Education How to access health informa tion online - Detail Indication:Non-smoker Start:03-Jun-2017 Instruction Type:Patient Education Patient Instructions Indication:Non-smoker Start:03-Jun-2017 Instruction Type:Provider Instructions for Treatment How to access health informa tion online Indication:Non-smoker Start:24-Feb-2017 Instruction Type:Patient Education How to access health informa tion online - Detail Indication:Non-smoker Start:24-Feb-2017 Instruction Type:Patient Education Patient Instructions Indication:Non-smoker Start:24-Feb-2017 Instruction Type:Provider Instructions for Treatment How to access health informa tion online Indication:Non-smoker Start:21-Oct-2016 Instruction Type:Patient Education How to access health informa tion online - Detail Indication:Non-smoker Start:21-Oct-2016 Instruction Type:Patient Education Patient Instructions Indication:Non-smoker Start:21-Oct-2016 Instruction Type:Provider Instructions for Treatment How to access health informa tion online Indication:Non-smoker Start:21-Jul-2016 Instruction Type:Patient Education How to access health informa tion online - Detail Indication:Non-smoker Start:21-Jul-2016 Instruction Type:Patient Education Patient Instructions Indication:Non-smoker Start:21-Jul-2016 Instruction Type:Provider Instructions for Treatment How to access health informa tion online Indication:Hypercholesteremia Start:23-Dec-2015 Instruction Type:Patient Education How to access health informa tion online - Detail Indication:Hypercholesteremia Start:23-Dec-2015 Instruction Type:Patient Education Patient Instructions Indication:Hypercholesteremia Start:23-Dec-2015 Instruction Type:Provider Instructions for Treatment How to access health informa tion online Indication:Encounter for Medicare annual wellness exam Start:03-Oct-2015 Instruction Type:Patient Education How to access health informa tion online - Detail Indication:Encounter for Medicare annual wellness exam Start:03-Oct-2015 Instruction Type:Patient Education Patient Instructions Indication:Encounter for Medicare annual wellness exam Start:03-Oct-2015 Instruction Type:Provider Instructions for Treatment How to access health informa tion online Indication:Hypercholesteremia Start:05-Sep-2015 Instruction Type:Patient Education How to access health informa tion online - Detail Indication:Hypercholesteremia Start:05-Sep-2015 Instruction Type:Patient Education Patient Instructions Indication:Hypercholesteremia Start:05-Sep-2015 Instruction Type:Provider Instructions for Treatment How to access health informa tion online Indication:Vitamin D deficiency Start:05-Jun-2015 Instruction Type:Patient Education How to access health informa tion online - Detail Indication:Vitamin D deficiency Start:05-Jun-2015 Instruction Type:Patient Education Patient Instructions Indication:Vitamin D deficiency Start:05-Jun-2015 Instruction Type:Provider Instructions for Treatment How to access health informa tion online Indication:Hypercholesteremia Start:06-Mar-2015 Instruction Type:Patient Education How to access health informa tion online - Detail Indication:Hypercholesteremia Start:06-Mar-2015 Instruction Type:Patient Education Patient Instructions Indication:Hypercholesteremia Start:06-Mar-2015 Instruction Type:Provider Instructions for Treatment How to access health informa tion online Indication:Depressive disorder Start:27-Nov-2014 Instruction Type:Patient Education How to access health informa tion online - Detail Indication:Depressive disorder Start:27-Nov-2014 Instruction Type:Patient Education Patient Instructions Indication:Depressive disorder Start:27-Nov-2014 Instruction Type:Provider Instructions for Treatment Patient Instructions Indication:Vitamin D deficiency Start:20-Jul-2014 Instruction Type:Provider Instructions for Treatment Patient Instructions Indication:Encounter for Medicare annual wellness exam Start:06-Apr-2014 Instruction Type:Provider Instructions for Treatment Name Dates Details How to access health informa tion online Indication:Non-smoker Start:18-Aug-2019 Instruction Type:Patient Education How to access health informa tion online - Detail Indication:Non-smoker Start:18-Aug-2019 Instruction Type:Patient Education Patient Instructions Indication:Non-smoker Start:18-Aug-2019 Instruction Type:Provider Instructions for Treatment How to access health informa tion online Indication:Non-smoker Start:09-Feb-2019 Instruction Type:Patient Education How to access health informa tion online - Detail Indication:Non-smoker Start:09-Feb-2019 Instruction Type:Patient Education Patient Instructions Indication:Non-smoker Start:09-Feb-2019 Instruction Type:Provider Instructions for Treatment How to access health informa tion online Indication:BMI 22.0-22.9, adult Start:19-Oct-2018 Instruction Type:Patient Education How to access health informa tion online - Detail Indication:BMI 22.0-22.9, adult Start:19-Oct-2018 Instruction Type:Patient Education Patient Instructions Indication:BMI 22.0-22.9, adult Start:19-Oct-2018 Instruction Type:Provider Instructions for Treatment How to access health informa tion online Indication:Non-smoker Start:10-Oct-2018 Instruction Type:Patient Education How to access health informa tion online - Detail Indication:Non-smoker Start:10-Oct-2018 Instruction Type:Patient Education Patient Instructions Indication:Non-smoker Start:10-Oct-2018 Instruction Type:Provider Instructions for Treatment How to access health informa tion online Indication:BMI 22.0-22.9, adult Start:10-Aug-2018 Instruction Type:Patient Education How to access health informa tion online - Detail Indication:BMI 22.0-22.9, adult Start:10-Aug-2018 Instruction Type:Patient Education Patient Instructions Indication:BMI 22.0-22.9, adult Start:10-Aug-2018 Instruction Type:Provider Instructions for Treatment How to access health informa tion online Indication:Non-smoker Start:07-Feb-2018 Instruction Type:Patient Education How to access health informa tion online - Detail Indication:Non-smoker Start:07-Feb-2018 Instruction Type:Patient Education Patient Instructions Indication:Non-smoker Start:07-Feb-2018 Instruction Type:Provider Instructions for Treatment How to access health informa tion online Indication:Non-smoker Start:06-Oct-2017 Instruction Type:Patient Education Patient Instructions Indication:Non-smoker Start:06-Oct-2017 Instruction Type:Provider Instructions for Treatment How to access health informa tion online Indication:Non-smoker Start:03-Jun-2017 Instruction Type:Patient Education How to access health informa tion online - Detail Indication:Non-smoker Start:03-Jun-2017 Instruction Type:Patient Education Patient Instructions Indication:Non-smoker Start:03-Jun-2017 Instruction Type:Provider Instructions for Treatment How to access health informa tion online Indication:Non-smoker Start:24-Feb-2017 Instruction Type:Patient Education How to access health informa tion online - Detail Indication:Non-smoker Start:24-Feb-2017 Instruction Type:Patient Education Patient Instructions Indication:Non-smoker Start:24-Feb-2017 Instruction Type:Provider Instructions for Treatment How to access health informa tion online Indication:Non-smoker Start:21-Oct-2016 Instruction Type:Patient Education How to access health informa tion online - Detail Indication:Non-smoker Start:21-Oct-2016 Instruction Type:Patient Education Patient Instructions Indication:Non-smoker Start:21-Oct-2016 Instruction Type:Provider Instructions for Treatment How to access health informa tion online Indication:Non-smoker Start:21-Jul-2016 Instruction Type:Patient Education How to access health informa tion online - Detail Indication:Non-smoker Start:21-Jul-2016 Instruction Type:Patient Education Patient Instructions Indication:Non-smoker Start:21-Jul-2016 Instruction Type:Provider Instructions for Treatment How to access health informa tion online Indication:Hypercholesteremia Start:23-Dec-2015 Instruction Type:Patient Education How to access health informa tion online - Detail Indication:Hypercholesteremia Start:23-Dec-2015 Instruction Type:Patient Education Patient Instructions Indication:Hypercholesteremia Start:23-Dec-2015 Instruction Type:Provider Instructions for Treatment How to access health informa tion online Indication:Encounter for Medicare annual wellness exam Start:03-Oct-2015 Instruction Type:Patient Education How to access health informa tion online - Detail Indication:Encounter for Medicare annual wellness exam Start:03-Oct-2015 Instruction Type:Patient Education Patient Instructions Indication:Encounter for Medicare annual wellness exam Start:03-Oct-2015 Instruction Type:Provider Instructions for Treatment How to access health informa tion online Indication:Hypercholesteremia Start:05-Sep-2015 Instruction Type:Patient Education How to access health informa tion online - Detail Indication:Hypercholesteremia Start:05-Sep-2015 Instruction Type:Patient Education Patient Instructions Indication:Hypercholesteremia Start:05-Sep-2015 Instruction Type:Provider Instructions for Treatment How to access health informa tion online Indication:Vitamin D deficiency Start:05-Jun-2015 Instruction Type:Patient Education How to access health informa tion online - Detail Indication:Vitamin D deficiency Start:05-Jun-2015 Instruction Type:Patient Education Patient Instructions Indication:Vitamin D deficiency Start:05-Jun-2015 Instruction Type:Provider Instructions for Treatment How to access health informa tion online Indication:Hypercholesteremia Start:06-Mar-2015 Instruction Type:Patient Education How to access health informa tion online - Detail Indication:Hypercholesteremia Start:06-Mar-2015 Instruction Type:Patient Education Patient Instructions Indication:Hypercholesteremia Start:06-Mar-2015 Instruction Type:Provider Instructions for Treatment How to access health informa tion online Indication:Depressive disorder Start:27-Nov-2014 Instruction Type:Patient Education How to access health informa tion online - Detail Indication:Depressive disorder Start:27-Nov-2014 Instruction Type:Patient Education Patient Instructions Indication:Depressive disorder Start:27-Nov-2014 Instruction Type:Provider Instructions for Treatment Patient Instructions Indication:Vitamin D deficiency Start:20-Jul-2014 Instruction Type:Provider Instructions for Treatment Patient Instructions Indication:Encounter for Medicare annual wellness exam Start:06-Apr-2014 Instruction Type:Provider Instructions for Treatment Name Dates Details How to Access Health Informa tion Online using Patient Portal and [employer] Apps Indication:Non-smoker Start:19-Feb-2020 Instruction Type:Patient Education Patient Instructions Indication:Non-smoker Start:19-Feb-2020 Instruction Type:Provider Instructions for Treatment How to access health informa tion online Indication:Non-smoker Start:18-Aug-2019 Instruction Type:Patient Education How to access health informa tion online - Detail Indication:Non-smoker Start:18-Aug-2019 Instruction Type:Patient Education Patient Instructions Indication:Non-smoker Start:18-Aug-2019 Instruction Type:Provider Instructions for Treatment How to access health informa tion online Indication:Non-smoker Start:09-Feb-2019 Instruction Type:Patient Education How to access health informa tion online - Detail Indication:Non-smoker Start:09-Feb-2019 Instruction Type:Patient Education Patient Instructions Indication:Non-smoker Start:09-Feb-2019 Instruction Type:Provider Instructions for Treatment How to access health informa tion online Indication:BMI 22.0-22.9, adult Start:19-Oct-2018 Instruction Type:Patient Education How to access health informa tion online - Detail Indication:BMI 22.0-22.9, adult Start:19-Oct-2018 Instruction Type:Patient Education Patient Instructions Indication:BMI 22.0-22.9, adult Start:19-Oct-2018 Instruction Type:Provider Instructions for Treatment How to access health informa tion online Indication:Non-smoker Start:10-Oct-2018 Instruction Type:Patient Education How to access health informa tion online - Detail Indication:Non-smoker Start:10-Oct-2018 Instruction Type:Patient Education Patient Instructions Indication:Non-smoker Start:10-Oct-2018 Instruction Type:Provider Instructions for Treatment How to access health informa tion online Indication:BMI 22.0-22.9, adult Start:10-Aug-2018 Instruction Type:Patient Education How to access health informa tion online - Detail Indication:BMI 22.0-22.9, adult Start:10-Aug-2018 Instruction Type:Patient Education Patient Instructions Indication:BMI 22.0-22.9, adult Start:10-Aug-2018 Instruction Type:Provider Instructions for Treatment How to access health informa tion online Indication:Non-smoker Start:07-Feb-2018 Instruction Type:Patient Education How to access health informa tion online - Detail Indication:Non-smoker Start:07-Feb-2018 Instruction Type:Patient Education Patient Instructions Indication:Non-smoker Start:07-Feb-2018 Instruction Type:Provider Instructions for Treatment How to access health informa tion online Indication:Non-smoker Start:06-Oct-2017 Instruction Type:Patient Education Patient Instructions Indication:Non-smoker Start:06-Oct-2017 Instruction Type:Provider Instructions for Treatment How to access health informa tion online Indication:Non-smoker Start:03-Jun-2017 Instruction Type:Patient Education How to access health informa tion online - Detail Indication:Non-smoker Start:03-Jun-2017 Instruction Type:Patient Education Patient Instructions Indication:Non-smoker Start:03-Jun-2017 Instruction Type:Provider Instructions for Treatment How to access health informa tion online Indication:Non-smoker Start:24-Feb-2017 Instruction Type:Patient Education How to access health informa tion online - Detail Indication:Non-smoker Start:24-Feb-2017 Instruction Type:Patient Education Patient Instructions Indication:Non-smoker Start:24-Feb-2017 Instruction Type:Provider Instructions for Treatment How to access health informa tion online Indication:Non-smoker Start:21-Oct-2016 Instruction Type:Patient Education How to access health informa tion online - Detail Indication:Non-smoker Start:21-Oct-2016 Instruction Type:Patient Education Patient Instructions Indication:Non-smoker Start:21-Oct-2016 Instruction Type:Provider Instructions for Treatment How to access health informa tion online Indication:Non-smoker Start:21-Jul-2016 Instruction Type:Patient Education How to access health informa tion online - Detail Indication:Non-smoker Start:21-Jul-2016 Instruction Type:Patient Education Patient Instructions Indication:Non-smoker Start:21-Jul-2016 Instruction Type:Provider Instructions for Treatment How to access health informa tion online Indication:Hypercholesteremia Start:23-Dec-2015 Instruction Type:Patient Education How to access health informa tion online - Detail Indication:Hypercholesteremia Start:23-Dec-2015 Instruction Type:Patient Education Patient Instructions Indication:Hypercholesteremia Start:23-Dec-2015 Instruction Type:Provider Instructions for Treatment How to access health informa tion online Indication:Encounter for Medicare annual wellness exam Start:03-Oct-2015 Instruction Type:Patient Education How to access health informa tion online - Detail Indication:Encounter for Medicare annual wellness exam Start:03-Oct-2015 Instruction Type:Patient Education Patient Instructions Indication:Encounter for Medicare annual wellness exam Start:03-Oct-2015 Instruction Type:Provider Instructions for Treatment How to access health informa tion online Indication:Hypercholesteremia Start:05-Sep-2015 Instruction Type:Patient Education How to access health informa tion online - Detail Indication:Hypercholesteremia Start:05-Sep-2015 Instruction Type:Patient Education Patient Instructions Indication:Hypercholesteremia Start:05-Sep-2015 Instruction Type:Provider Instructions for Treatment How to access health informa tion online Indication:Vitamin D deficiency Start:05-Jun-2015 Instruction Type:Patient Education How to access health informa tion online - Detail Indication:Vitamin D deficiency Start:05-Jun-2015 Instruction Type:Patient Education Patient Instructions Indication:Vitamin D deficiency Start:05-Jun-2015 Instruction Type:Provider Instructions for Treatment How to access health informa tion online Indication:Hypercholesteremia Start:06-Mar-2015 Instruction Type:Patient Education How to access health informa tion online - Detail Indication:Hypercholesteremia Start:06-Mar-2015 Instruction Type:Patient Education Patient Instructions Indication:Hypercholesteremia Start:06-Mar-2015 Instruction Type:Provider Instructions for Treatment How to access health informa tion online Indication:Depressive disorder Start:27-Nov-2014 Instruction Type:Patient Education How to access health informa tion online - Detail Indication:Depressive disorder Start:27-Nov-2014 Instruction Type:Patient Education Patient Instructions Indication:Depressive disorder Start:27-Nov-2014 Instruction Type:Provider Instructions for Treatment Patient Instructions Indication:Vitamin D deficiency Start:20-Jul-2014 Instruction Type:Provider Instructions for Treatment Patient Instructions Indication:Encounter for Medicare annual wellness exam Start:06-Apr-2014 Instruction Type:Provider Instructions for Treatment Name Dates Details Patient Instructions Indication:Coronavirus infection Start:04-Mar-2020 Instruction Type:Provider Instructions for Treatment How to Access Health Informa tion Online using Patient Portal and [employer]rd [employer] Apps Indication:Coronavirus infection Start:04-Mar-2020 Instruction Type:Patient Education How to Access Health Informa tion Online using Patient Portal and [employer]rd [employer] Apps Indication:Non-smoker Start:19-Feb-2020 Instruction Type:Patient Education Patient Instructions Indication:Non-smoker Start:19-Feb-2020 Instruction Type:Provider Instructions for Treatment How to access health informa tion online Indication:Non-smoker Start:18-Aug-2019 Instruction Type:Patient Education How to access health informa tion online - Detail Indication:Non-smoker Start:18-Aug-2019 Instruction Type:Patient Education Patient Instructions Indication:Non-smoker Start:18-Aug-2019 Instruction Type:Provider Instructions for Treatment How to access health informa tion online Indication:Non-smoker Start:09-Feb-2019 Instruction Type:Patient Education How to access health informa tion online - Detail Indication:Non-smoker Start:09-Feb-2019 Instruction Type:Patient Education Patient Instructions Indication:Non-smoker Start:09-Feb-2019 Instruction Type:Provider Instructions for Treatment How to access health informa tion online Indication:BMI 22.0-22.9, adult Start:19-Oct-2018 Instruction Type:Patient Education How to access health informa tion online - Detail Indication:BMI 22.0-22.9, adult Start:19-Oct-2018 Instruction Type:Patient Education Patient Instructions Indication:BMI 22.0-22.9, adult Start:19-Oct-2018 Instruction Type:Provider Instructions for Treatment How to access health informa tion online Indication:Non-smoker Start:10-Oct-2018 Instruction Type:Patient Education How to access health informa tion online - Detail Indication:Non-smoker Start:10-Oct-2018 Instruction Type:Patient Education Patient Instructions Indication:Non-smoker Start:10-Oct-2018 Instruction Type:Provider Instructions for Treatment How to access health informa tion online Indication:BMI 22.0-22.9, adult Start:10-Aug-2018 Instruction Type:Patient Education How to access health informa tion online - Detail Indication:BMI 22.0-22.9, adult Start:10-Aug-2018 Instruction Type:Patient Education Patient Instructions Indication:BMI 22.0-22.9, adult Start:10-Aug-2018 Instruction Type:Provider Instructions for Treatment How to access health informa tion online Indication:Non-smoker Start:07-Feb-2018 Instruction Type:Patient Education How to access health informa tion online - Detail Indication:Non-smoker Start:07-Feb-2018 Instruction Type:Patient Education Patient Instructions Indication:Non-smoker Start:07-Feb-2018 Instruction Type:Provider Instructions for Treatment How to access health informa tion online Indication:Non-smoker Start:06-Oct-2017 Instruction Type:Patient Education Patient Instructions Indication:Non-smoker Start:06-Oct-2017 Instruction Type:Provider Instructions for Treatment How to access health informa tion online Indication:Non-smoker Start:03-Jun-2017 Instruction Type:Patient Education How to access health informa tion online - Detail Indication:Non-smoker Start:03-Jun-2017 Instruction Type:Patient Education Patient Instructions Indication:Non-smoker Start:03-Jun-2017 Instruction Type:Provider Instructions for Treatment How to access health informa tion online Indication:Non-smoker Start:24-Feb-2017 Instruction Type:Patient Education How to access health informa tion online - Detail Indication:Non-smoker Start:24-Feb-2017 Instruction Type:Patient Education Patient Instructions Indication:Non-smoker Start:24-Feb-2017 Instruction Type:Provider Instructions for Treatment How to access health informa tion online Indication:Non-smoker Start:21-Oct-2016 Instruction Type:Patient Education How to access health informa tion online - Detail Indication:Non-smoker Start:21-Oct-2016 Instruction Type:Patient Education Patient Instructions Indication:Non-smoker Start:21-Oct-2016 Instruction Type:Provider Instructions for Treatment How to access health informa tion online Indication:Non-smoker Start:21-Jul-2016 Instruction Type:Patient Education How to access health informa tion online - Detail Indication:Non-smoker Start:21-Jul-2016 Instruction Type:Patient Education Patient Instructions Indication:Non-smoker Start:21-Jul-2016 Instruction Type:Provider Instructions for Treatment How to access health informa tion online Indication:Hypercholesteremia Start:23-Dec-2015 Instruction Type:Patient Education How to access health informa tion online - Detail Indication:Hypercholesteremia Start:23-Dec-2015 Instruction Type:Patient Education Patient Instructions Indication:Hypercholesteremia Start:23-Dec-2015 Instruction Type:Provider Instructions for Treatment How to access health informa tion online Indication:Encounter for Medicare annual wellness exam Start:03-Oct-2015 Instruction Type:Patient Education How to access health informa tion online - Detail Indication:Encounter for Medicare annual wellness exam Start:03-Oct-2015 Instruction Type:Patient Education Patient Instructions Indication:Encounter for Medicare annual wellness exam Start:03-Oct-2015 Instruction Type:Provider Instructions for Treatment How to access health informa tion online Indication:Hypercholesteremia Start:05-Sep-2015 Instruction Type:Patient Education How to access health informa tion online - Detail Indication:Hypercholesteremia Start:05-Sep-2015 Instruction Type:Patient Education Patient Instructions Indication:Hypercholesteremia Start:05-Sep-2015 Instruction Type:Provider Instructions for Treatment How to access health informa tion online Indication:Vitamin D deficiency Start:05-Jun-2015 Instruction Type:Patient Education How to access health informa tion online - Detail Indication:Vitamin D deficiency Start:05-Jun-2015 Instruction Type:Patient Education Patient Instructions Indication:Vitamin D deficiency Start:05-Jun-2015 Instruction Type:Provider Instructions for Treatment How to access health informa tion online Indication:Hypercholesteremia Start:06-Mar-2015 Instruction Type:Patient Education How to access health informa tion online - Detail Indication:Hypercholesteremia Start:06-Mar-2015 Instruction Type:Patient Education Patient Instructions Indication:Hypercholesteremia Start:06-Mar-2015 Instruction Type:Provider Instructions for Treatment How to access health informa tion online Indication:Depressive disorder Start:27-Nov-2014 Instruction Type:Patient Education How to access health informa tion online - Detail Indication:Depressive disorder Start:27-Nov-2014 Instruction Type:Patient Education Patient Instructions Indication:Depressive disorder Start:27-Nov-2014 Instruction Type:Provider Instructions for Treatment Patient Instructions Indication:Vitamin D deficiency Start:20-Jul-2014 Instruction Type:Provider Instructions for Treatment Patient Instructions Indication:Encounter for Medicare annual wellness exam Start:06-Apr-2014 Instruction Type:Provider Instructions for Treatment Name Dates Details Patient Instructions Indication:Coronavirus infection Start:04-Mar-2020 Instruction Type:Provider Instructions for Treatment How to Access Health Informa tion Online using Patient Portal and 3rd [employer] Apps Indication:Coronavirus infection Start:04-Mar-2020 Instruction Type:Patient Education How to Access Health Informa tion Online using Patient Portal and 3rd [employer] Apps Indication:Non-smoker Start:19-Feb-2020 Instruction Type:Patient Education Patient Instructions Indication:Non-smoker Start:19-Feb-2020 Instruction Type:Provider Instructions for Treatment How to access health informa tion online Indication:Non-smoker Start:18-Aug-2019 Instruction Type:Patient Education How to access health informa tion online - Detail Indication:Non-smoker Start:18-Aug-2019 Instruction Type:Patient Education Patient Instructions Indication:Non-smoker Start:18-Aug-2019 Instruction Type:Provider Instructions for Treatment How to access health informa tion online Indication:Non-smoker Start:09-Feb-2019 Instruction Type:Patient Education How to access health informa tion online - Detail Indication:Non-smoker Start:09-Feb-2019 Instruction Type:Patient Education Patient Instructions Indication:Non-smoker Start:09-Feb-2019 Instruction Type:Provider Instructions for Treatment How to access health informa tion online Indication:BMI 22.0-22.9, adult Start:19-Oct-2018 Instruction Type:Patient Education How to access health informa tion online - Detail Indication:BMI 22.0-22.9, adult Start:19-Oct-2018 Instruction Type:Patient Education Patient Instructions Indication:BMI 22.0-22.9, adult Start:19-Oct-2018 Instruction Type:Provider Instructions for Treatment How to access health informa tion online Indication:Non-smoker Start:10-Oct-2018 Instruction Type:Patient Education How to access health informa tion online - Detail Indication:Non-smoker Start:10-Oct-2018 Instruction Type:Patient Education Patient Instructions Indication:Non-smoker Start:10-Oct-2018 Instruction Type:Provider Instructions for Treatment How to access health informa tion online Indication:BMI 22.0-22.9, adult Start:10-Aug-2018 Instruction Type:Patient Education How to access health informa tion online - Detail Indication:BMI 22.0-22.9, adult Start:10-Aug-2018 Instruction Type:Patient Education Patient Instructions Indication:BMI 22.0-22.9, adult Start:10-Aug-2018 Instruction Type:Provider Instructions for Treatment How to access health informa tion online Indication:Non-smoker Start:07-Feb-2018 Instruction Type:Patient Education How to access health informa tion online - Detail Indication:Non-smoker Start:07-Feb-2018 Instruction Type:Patient Education Patient Instructions Indication:Non-smoker Start:07-Feb-2018 Instruction Type:Provider Instructions for Treatment How to access health informa tion online Indication:Non-smoker Start:06-Oct-2017 Instruction Type:Patient Education Patient Instructions Indication:Non-smoker Start:06-Oct-2017 Instruction Type:Provider Instructions for Treatment How to access health informa tion online Indication:Non-smoker Start:03-Jun-2017 Instruction Type:Patient Education How to access health informa tion online - Detail Indication:Non-smoker Start:03-Jun-2017 Instruction Type:Patient Education Patient Instructions Indication:Non-smoker Start:03-Jun-2017 Instruction Type:Provider Instructions for Treatment How to access health informa tion online Indication:Non-smoker Start:24-Feb-2017 Instruction Type:Patient Education How to access health informa tion online - Detail Indication:Non-smoker Start:24-Feb-2017 Instruction Type:Patient Education Patient Instructions Indication:Non-smoker Start:24-Feb-2017 Instruction Type:Provider Instructions for Treatment How to access health informa tion online Indication:Non-smoker Start:21-Oct-2016 Instruction Type:Patient Education How to access health informa tion online - Detail Indication:Non-smoker Start:21-Oct-2016 Instruction Type:Patient Education Patient Instructions Indication:Non-smoker Start:21-Oct-2016 Instruction Type:Provider Instructions for Treatment How to access health informa tion online Indication:Non-smoker Start:21-Jul-2016 Instruction Type:Patient Education How to access health informa tion online - Detail Indication:Non-smoker Start:21-Jul-2016 Instruction Type:Patient Education Patient Instructions Indication:Non-smoker Start:21-Jul-2016 Instruction Type:Provider Instructions for Treatment How to access health informa tion online Indication:Hypercholesteremia Start:23-Dec-2015 Instruction Type:Patient Education How to access health informa tion online - Detail Indication:Hypercholesteremia Start:23-Dec-2015 Instruction Type:Patient Education Patient Instructions Indication:Hypercholesteremia Start:23-Dec-2015 Instruction Type:Provider Instructions for Treatment How to access health informa tion online Indication:Encounter for Medicare annual wellness exam Start:03-Oct-2015 Instruction Type:Patient Education How to access health informa tion online - Detail Indication:Encounter for Medicare annual wellness exam Start:03-Oct-2015 Instruction Type:Patient Education Patient Instructions Indication:Encounter for Medicare annual wellness exam Start:03-Oct-2015 Instruction Type:Provider Instructions for Treatment How to access health informa tion online Indication:Hypercholesteremia Start:05-Sep-2015 Instruction Type:Patient Education How to access health informa tion online - Detail Indication:Hypercholesteremia Start:05-Sep-2015 Instruction Type:Patient Education Patient Instructions Indication:Hypercholesteremia Start:05-Sep-2015 Instruction Type:Provider Instructions for Treatment How to access health informa tion online Indication:Vitamin D deficiency Start:05-Jun-2015 Instruction Type:Patient Education How to access health informa tion online - Detail Indication:Vitamin D deficiency Start:05-Jun-2015 Instruction Type:Patient Education Patient Instructions Indication:Vitamin D deficiency Start:05-Jun-2015 Instruction Type:Provider Instructions for Treatment How to access health informa tion online Indication:Hypercholesteremia Start:06-Mar-2015 Instruction Type:Patient Education How to access health informa tion online - Detail Indication:Hypercholesteremia Start:06-Mar-2015 Instruction Type:Patient Education Patient Instructions Indication:Hypercholesteremia Start:06-Mar-2015 Instruction Type:Provider Instructions for Treatment How to access health informa tion online Indication:Depressive disorder Start:27-Nov-2014 Instruction Type:Patient Education How to access health informa tion online - Detail Indication:Depressive disorder Start:27-Nov-2014 Instruction Type:Patient Education Patient Instructions Indication:Depressive disorder Start:27-Nov-2014 Instruction Type:Provider Instructions for Treatment Patient Instructions Indication:Vitamin D deficiency Start:20-Jul-2014 Instruction Type:Provider Instructions for Treatment Patient Instructions Indication:Encounter for Medicare annual wellness exam Start:06-Apr-2014 Instruction Type:Provider Instructions for Treatment Name Dates Details How to Access Health Informa tion Online using Patient Portal and [employer]rd [employer] Apps Indication:Non-smoker Start:06-Mar-2020 Instruction Type:Patient Education Patient Instructions Indication:Non-smoker Start:06-Mar-2020 Instruction Type:Provider Instructions for Treatment Patient Instructions Indication:Coronavirus infection Start:04-Mar-2020 Instruction Type:Provider Instructions for Treatment How to Access Health Informa tion Online using Patient Portal and [employer]rd [employer] Apps Indication:Coronavirus infection Start:04-Mar-2020 Instruction Type:Patient Education How to Access Health Informa tion Online using Patient Portal and [employer]rd [employer] Apps Indication:Non-smoker Start:19-Feb-2020 Instruction Type:Patient Education Patient Instructions Indication:Non-smoker Start:19-Feb-2020 Instruction Type:Provider Instructions for Treatment How to access health informa tion online Indication:Non-smoker Start:18-Aug-2019 Instruction Type:Patient Education How to access health informa tion online - Detail Indication:Non-smoker Start:18-Aug-2019 Instruction Type:Patient Education Patient Instructions Indication:Non-smoker Start:18-Aug-2019 Instruction Type:Provider Instructions for Treatment How to access health informa tion online Indication:Non-smoker Start:09-Feb-2019 Instruction Type:Patient Education How to access health informa tion online - Detail Indication:Non-smoker Start:09-Feb-2019 Instruction Type:Patient Education Patient Instructions Indication:Non-smoker Start:09-Feb-2019 Instruction Type:Provider Instructions for Treatment How to access health informa tion online Indication:BMI 22.0-22.9, adult Start:19-Oct-2018 Instruction Type:Patient Education How to access health informa tion online - Detail Indication:BMI 22.0-22.9, adult Start:19-Oct-2018 Instruction Type:Patient Education Patient Instructions Indication:BMI 22.0-22.9, adult Start:19-Oct-2018 Instruction Type:Provider Instructions for Treatment How to access health informa tion online Indication:Non-smoker Start:10-Oct-2018 Instruction Type:Patient Education How to access health informa tion online - Detail Indication:Non-smoker Start:10-Oct-2018 Instruction Type:Patient Education Patient Instructions Indication:Non-smoker Start:10-Oct-2018 Instruction Type:Provider Instructions for Treatment How to access health informa tion online Indication:BMI 22.0-22.9, adult Start:10-Aug-2018 Instruction Type:Patient Education How to access health informa tion online - Detail Indication:BMI 22.0-22.9, adult Start:10-Aug-2018 Instruction Type:Patient Education Patient Instructions Indication:BMI 22.0-22.9, adult Start:10-Aug-2018 Instruction Type:Provider Instructions for Treatment How to access health informa tion online Indication:Non-smoker Start:07-Feb-2018 Instruction Type:Patient Education How to access health informa tion online - Detail Indication:Non-smoker Start:07-Feb-2018 Instruction Type:Patient Education Patient Instructions Indication:Non-smoker Start:07-Feb-2018 Instruction Type:Provider Instructions for Treatment How to access health informa tion online Indication:Non-smoker Start:06-Oct-2017 Instruction Type:Patient Education Patient Instructions Indication:Non-smoker Start:06-Oct-2017 Instruction Type:Provider Instructions for Treatment How to access health informa tion online Indication:Non-smoker Start:03-Jun-2017 Instruction Type:Patient Education How to access health informa tion online - Detail Indication:Non-smoker Start:03-Jun-2017 Instruction Type:Patient Education Patient Instructions Indication:Non-smoker Start:03-Jun-2017 Instruction Type:Provider Instructions for Treatment How to access health informa tion online Indication:Non-smoker Start:24-Feb-2017 Instruction Type:Patient Education How to access health informa tion online - Detail Indication:Non-smoker Start:24-Feb-2017 Instruction Type:Patient Education Patient Instructions Indication:Non-smoker Start:24-Feb-2017 Instruction Type:Provider Instructions for Treatment How to access health informa tion online Indication:Non-smoker Start:21-Oct-2016 Instruction Type:Patient Education How to access health informa tion online - Detail Indication:Non-smoker Start:21-Oct-2016 Instruction Type:Patient Education Patient Instructions Indication:Non-smoker Start:21-Oct-2016 Instruction Type:Provider Instructions for Treatment How to access health informa tion online Indication:Non-smoker Start:21-Jul-2016 Instruction Type:Patient Education How to access health informa tion online - Detail Indication:Non-smoker Start:21-Jul-2016 Instruction Type:Patient Education Patient Instructions Indication:Non-smoker Start:21-Jul-2016 Instruction Type:Provider Instructions for Treatment How to access health informa tion online Indication:Hypercholesteremia Start:23-Dec-2015 Instruction Type:Patient Education How to access health informa tion online - Detail Indication:Hypercholesteremia Start:23-Dec-2015 Instruction Type:Patient Education Patient Instructions Indication:Hypercholesteremia Start:23-Dec-2015 Instruction Type:Provider Instructions for Treatment How to access health informa tion online Indication:Encounter for Medicare annual wellness exam Start:03-Oct-2015 Instruction Type:Patient Education How to access health informa tion online - Detail Indication:Encounter for Medicare annual wellness exam Start:03-Oct-2015 Instruction Type:Patient Education Patient Instructions Indication:Encounter for Medicare annual wellness exam Start:03-Oct-2015 Instruction Type:Provider Instructions for Treatment How to access health informa tion online Indication:Hypercholesteremia Start:05-Sep-2015 Instruction Type:Patient Education How to access health informa tion online - Detail Indication:Hypercholesteremia Start:05-Sep-2015 Instruction Type:Patient Education Patient Instructions Indication:Hypercholesteremia Start:05-Sep-2015 Instruction Type:Provider Instructions for Treatment How to access health informa tion online Indication:Vitamin D deficiency Start:05-Jun-2015 Instruction Type:Patient Education How to access health informa tion online - Detail Indication:Vitamin D deficiency Start:05-Jun-2015 Instruction Type:Patient Education Patient Instructions Indication:Vitamin D deficiency Start:05-Jun-2015 Instruction Type:Provider Instructions for Treatment How to access health informa tion online Indication:Hypercholesteremia Start:06-Mar-2015 Instruction Type:Patient Education How to access health informa tion online - Detail Indication:Hypercholesteremia Start:06-Mar-2015 Instruction Type:Patient Education Patient Instructions Indication:Hypercholesteremia Start:06-Mar-2015 Instruction Type:Provider Instructions for Treatment How to access health informa tion online Indication:Depressive disorder Start:27-Nov-2014 Instruction Type:Patient Education How to access health informa tion online - Detail Indication:Depressive disorder Start:27-Nov-2014 Instruction Type:Patient Education Patient Instructions Indication:Depressive disorder Start:27-Nov-2014 Instruction Type:Provider Instructions for Treatment Patient Instructions Indication:Vitamin D deficiency Start:20-Jul-2014 Instruction Type:Provider Instructions for Treatment Patient Instructions Indication:Encounter for Medicare annual wellness exam Start:06-Apr-2014 Instruction Type:Provider Instructions for Treatment Name Dates Details How to Access Health Informa tion Online using Patient Portal and [employer]rd [employer] Apps Indication:Non-smoker Start:06-Mar-2020 Instruction Type:Patient Education Patient Instructions Indication:Non-smoker Start:06-Mar-2020 Instruction Type:Provider Instructions for Treatment Patient Instructions Indication:Coronavirus infection Start:04-Mar-2020 Instruction Type:Provider Instructions for Treatment How to Access Health Informa tion Online using Patient Portal and [employer] Apps Indication:Coronavirus infection Start:04-Mar-2020 Instruction Type:Patient Education How to Access Health Informa tion Online using Patient Portal and [employer]rd [employer] Apps Indication:Non-smoker Start:19-Feb-2020 Instruction Type:Patient Education Patient Instructions Indication:Non-smoker Start:19-Feb-2020 Instruction Type:Provider Instructions for Treatment How to access health informa tion online Indication:Non-smoker Start:18-Aug-2019 Instruction Type:Patient Education How to access health informa tion online - Detail Indication:Non-smoker Start:18-Aug-2019 Instruction Type:Patient Education Patient Instructions Indication:Non-smoker Start:18-Aug-2019 Instruction Type:Provider Instructions for Treatment How to access health informa tion online Indication:Non-smoker Start:09-Feb-2019 Instruction Type:Patient Education How to access health informa tion online - Detail Indication:Non-smoker Start:09-Feb-2019 Instruction Type:Patient Education Patient Instructions Indication:Non-smoker Start:09-Feb-2019 Instruction Type:Provider Instructions for Treatment How to access health informa tion online Indication:BMI 22.0-22.9, adult Start:19-Oct-2018 Instruction Type:Patient Education How to access health informa tion online - Detail Indication:BMI 22.0-22.9, adult Start:19-Oct-2018 Instruction Type:Patient Education Patient Instructions Indication:BMI 22.0-22.9, adult Start:19-Oct-2018 Instruction Type:Provider Instructions for Treatment How to access health informa tion online Indication:Non-smoker Start:10-Oct-2018 Instruction Type:Patient Education How to access health informa tion online - Detail Indication:Non-smoker Start:10-Oct-2018 Instruction Type:Patient Education Patient Instructions Indication:Non-smoker Start:10-Oct-2018 Instruction Type:Provider Instructions for Treatment How to access health informa tion online Indication:BMI 22.0-22.9, adult Start:10-Aug-2018 Instruction Type:Patient Education How to access health informa tion online - Detail Indication:BMI 22.0-22.9, adult Start:10-Aug-2018 Instruction Type:Patient Education Patient Instructions Indication:BMI 22.0-22.9, adult Start:10-Aug-2018 Instruction Type:Provider Instructions for Treatment How to access health informa tion online Indication:Non-smoker Start:07-Feb-2018 Instruction Type:Patient Education How to access health informa tion online - Detail Indication:Non-smoker Start:07-Feb-2018 Instruction Type:Patient Education Patient Instructions Indication:Non-smoker Start:07-Feb-2018 Instruction Type:Provider Instructions for Treatment How to access health informa tion online Indication:Non-smoker Start:06-Oct-2017 Instruction Type:Patient Education Patient Instructions Indication:Non-smoker Start:06-Oct-2017 Instruction Type:Provider Instructions for Treatment How to access health informa tion online Indication:Non-smoker Start:03-Jun-2017 Instruction Type:Patient Education How to access health informa tion online - Detail Indication:Non-smoker Start:03-Jun-2017 Instruction Type:Patient Education Patient Instructions Indication:Non-smoker Start:03-Jun-2017 Instruction Type:Provider Instructions for Treatment How to access health informa tion online Indication:Non-smoker Start:24-Feb-2017 Instruction Type:Patient Education How to access health informa tion online - Detail Indication:Non-smoker Start:24-Feb-2017 Instruction Type:Patient Education Patient Instructions Indication:Non-smoker Start:24-Feb-2017 Instruction Type:Provider Instructions for Treatment How to access health informa tion online Indication:Non-smoker Start:21-Oct-2016 Instruction Type:Patient Education How to access health informa tion online - Detail Indication:Non-smoker Start:21-Oct-2016 Instruction Type:Patient Education Patient Instructions Indication:Non-smoker Start:21-Oct-2016 Instruction Type:Provider Instructions for Treatment How to access health informa tion online Indication:Non-smoker Start:21-Jul-2016 Instruction Type:Patient Education How to access health informa tion online - Detail Indication:Non-smoker Start:21-Jul-2016 Instruction Type:Patient Education Patient Instructions Indication:Non-smoker Start:21-Jul-2016 Instruction Type:Provider Instructions for Treatment How to access health informa tion online Indication:Hypercholesteremia Start:23-Dec-2015 Instruction Type:Patient Education How to access health informa tion online - Detail Indication:Hypercholesteremia Start:23-Dec-2015 Instruction Type:Patient Education Patient Instructions Indication:Hypercholesteremia Start:23-Dec-2015 Instruction Type:Provider Instructions for Treatment How to access health informa tion online Indication:Encounter for Medicare annual wellness exam Start:03-Oct-2015 Instruction Type:Patient Education How to access health informa tion online - Detail Indication:Encounter for Medicare annual wellness exam Start:03-Oct-2015 Instruction Type:Patient Education Patient Instructions Indication:Encounter for Medicare annual wellness exam Start:03-Oct-2015 Instruction Type:Provider Instructions for Treatment How to access health informa tion online Indication:Hypercholesteremia Start:05-Sep-2015 Instruction Type:Patient Education How to access health informa tion online - Detail Indication:Hypercholesteremia Start:05-Sep-2015 Instruction Type:Patient Education Patient Instructions Indication:Hypercholesteremia Start:05-Sep-2015 Instruction Type:Provider Instructions for Treatment How to access health informa tion online Indication:Vitamin D deficiency Start:05-Jun-2015 Instruction Type:Patient Education How to access health informa tion online - Detail Indication:Vitamin D deficiency Start:05-Jun-2015 Instruction Type:Patient Education Patient Instructions Indication:Vitamin D deficiency Start:05-Jun-2015 Instruction Type:Provider Instructions for Treatment How to access health informa tion online Indication:Hypercholesteremia Start:06-Mar-2015 Instruction Type:Patient Education How to access health informa tion online - Detail Indication:Hypercholesteremia Start:06-Mar-2015 Instruction Type:Patient Education Patient Instructions Indication:Hypercholesteremia Start:06-Mar-2015 Instruction Type:Provider Instructions for Treatment How to access health informa tion online Indication:Depressive disorder Start:27-Nov-2014 Instruction Type:Patient Education How to access health informa tion online - Detail Indication:Depressive disorder Start:27-Nov-2014 Instruction Type:Patient Education Patient Instructions Indication:Depressive disorder Start:27-Nov-2014 Instruction Type:Provider Instructions for Treatment Patient Instructions Indication:Vitamin D deficiency Start:20-Jul-2014 Instruction Type:Provider Instructions for Treatment Patient Instructions Indication:Encounter for Medicare annual wellness exam Start:06-Apr-2014 Instruction Type:Provider Instructions for Treatment Name Dates Details How to Access Health Informa tion Online using Patient Portal and [employer]rd [employer] Apps Indication:Non-smoker Start:06-Mar-2020 Instruction Type:Patient Education Patient Instructions Indication:Non-smoker Start:06-Mar-2020 Instruction Type:Provider Instructions for Treatment Patient Instructions Indication:Coronavirus infection Start:04-Mar-2020 Instruction Type:Provider Instructions for Treatment How to Access Health Informa tion Online using Patient Portal and [employer] Apps Indication:Coronavirus infection Start:04-Mar-2020 Instruction Type:Patient Education How to Access Health Informa tion Online using Patient Portal and [employer]rd [employer] Apps Indication:Non-smoker Start:19-Feb-2020 Instruction Type:Patient Education Patient Instructions Indication:Non-smoker Start:19-Feb-2020 Instruction Type:Provider Instructions for Treatment How to access health informa tion online Indication:Non-smoker Start:18-Aug-2019 Instruction Type:Patient Education How to access health informa tion online - Detail Indication:Non-smoker Start:18-Aug-2019 Instruction Type:Patient Education Patient Instructions Indication:Non-smoker Start:18-Aug-2019 Instruction Type:Provider Instructions for Treatment How to access health informa tion online Indication:Non-smoker Start:09-Feb-2019 Instruction Type:Patient Education How to access health informa tion online - Detail Indication:Non-smoker Start:09-Feb-2019 Instruction Type:Patient Education Patient Instructions Indication:Non-smoker Start:09-Feb-2019 Instruction Type:Provider Instructions for Treatment How to access health informa tion online Indication:BMI 22.0-22.9, adult Start:19-Oct-2018 Instruction Type:Patient Education How to access health informa tion online - Detail Indication:BMI 22.0-22.9, adult Start:19-Oct-2018 Instruction Type:Patient Education Patient Instructions Indication:BMI 22.0-22.9, adult Start:19-Oct-2018 Instruction Type:Provider Instructions for Treatment How to access health informa tion online Indication:Non-smoker Start:10-Oct-2018 Instruction Type:Patient Education How to access health informa tion online - Detail Indication:Non-smoker Start:10-Oct-2018 Instruction Type:Patient Education Patient Instructions Indication:Non-smoker Start:10-Oct-2018 Instruction Type:Provider Instructions for Treatment How to access health informa tion online Indication:BMI 22.0-22.9, adult Start:10-Aug-2018 Instruction Type:Patient Education How to access health informa tion online - Detail Indication:BMI 22.0-22.9, adult Start:10-Aug-2018 Instruction Type:Patient Education Patient Instructions Indication:BMI 22.0-22.9, adult Start:10-Aug-2018 Instruction Type:Provider Instructions for Treatment How to access health informa tion online Indication:Non-smoker Start:07-Feb-2018 Instruction Type:Patient Education How to access health informa tion online - Detail Indication:Non-smoker Start:07-Feb-2018 Instruction Type:Patient Education Patient Instructions Indication:Non-smoker Start:07-Feb-2018 Instruction Type:Provider Instructions for Treatment How to access health informa tion online Indication:Non-smoker Start:06-Oct-2017 Instruction Type:Patient Education Patient Instructions Indication:Non-smoker Start:06-Oct-2017 Instruction Type:Provider Instructions for Treatment How to access health informa tion online Indication:Non-smoker Start:03-Jun-2017 Instruction Type:Patient Education How to access health informa tion online - Detail Indication:Non-smoker Start:03-Jun-2017 Instruction Type:Patient Education Patient Instructions Indication:Non-smoker Start:03-Jun-2017 Instruction Type:Provider Instructions for Treatment How to access health informa tion online Indication:Non-smoker Start:24-Feb-2017 Instruction Type:Patient Education How to access health informa tion online - Detail Indication:Non-smoker Start:24-Feb-2017 Instruction Type:Patient Education Patient Instructions Indication:Non-smoker Start:24-Feb-2017 Instruction Type:Provider Instructions for Treatment How to access health informa tion online Indication:Non-smoker Start:21-Oct-2016 Instruction Type:Patient Education How to access health informa tion online - Detail Indication:Non-smoker Start:21-Oct-2016 Instruction Type:Patient Education Patient Instructions Indication:Non-smoker Start:21-Oct-2016 Instruction Type:Provider Instructions for Treatment How to access health informa tion online Indication:Non-smoker Start:21-Jul-2016 Instruction Type:Patient Education How to access health informa tion online - Detail Indication:Non-smoker Start:21-Jul-2016 Instruction Type:Patient Education Patient Instructions Indication:Non-smoker Start:21-Jul-2016 Instruction Type:Provider Instructions for Treatment How to access health informa tion online Indication:Hypercholesteremia Start:23-Dec-2015 Instruction Type:Patient Education How to access health informa tion online - Detail Indication:Hypercholesteremia Start:23-Dec-2015 Instruction Type:Patient Education Patient Instructions Indication:Hypercholesteremia Start:23-Dec-2015 Instruction Type:Provider Instructions for Treatment How to access health informa tion online Indication:Encounter for Medicare annual wellness exam Start:03-Oct-2015 Instruction Type:Patient Education How to access health informa tion online - Detail Indication:Encounter for Medicare annual wellness exam Start:03-Oct-2015 Instruction Type:Patient Education Patient Instructions Indication:Encounter for Medicare annual wellness exam Start:03-Oct-2015 Instruction Type:Provider Instructions for Treatment How to access health informa tion online Indication:Hypercholesteremia Start:05-Sep-2015 Instruction Type:Patient Education How to access health informa tion online - Detail Indication:Hypercholesteremia Start:05-Sep-2015 Instruction Type:Patient Education Patient Instructions Indication:Hypercholesteremia Start:05-Sep-2015 Instruction Type:Provider Instructions for Treatment How to access health informa tion online Indication:Vitamin D deficiency Start:05-Jun-2015 Instruction Type:Patient Education How to access health informa tion online - Detail Indication:Vitamin D deficiency Start:05-Jun-2015 Instruction Type:Patient Education Patient Instructions Indication:Vitamin D deficiency Start:05-Jun-2015 Instruction Type:Provider Instructions for Treatment How to access health informa tion online Indication:Hypercholesteremia Start:06-Mar-2015 Instruction Type:Patient Education How to access health informa tion online - Detail Indication:Hypercholesteremia Start:06-Mar-2015 Instruction Type:Patient Education Patient Instructions Indication:Hypercholesteremia Start:06-Mar-2015 Instruction Type:Provider Instructions for Treatment How to access health informa tion online Indication:Depressive disorder Start:27-Nov-2014 Instruction Type:Patient Education How to access health informa tion online - Detail Indication:Depressive disorder Start:27-Nov-2014 Instruction Type:Patient Education Patient Instructions Indication:Depressive disorder Start:27-Nov-2014 Instruction Type:Provider Instructions for Treatment Patient Instructions Indication:Vitamin D deficiency Start:20-Jul-2014 Instruction Type:Provider Instructions for Treatment Patient Instructions Indication:Encounter for Medicare annual wellness exam Start:06-Apr-2014 Instruction Type:Provider Instructions for Treatment Name Dates Details How to access health informa tion online Indication:Non-smoker Start:10-Oct-2018 Instruction Type:Patient Education How to access health informa tion online - Detail Indication:Non-smoker Start:10-Oct-2018 Instruction Type:Patient Education Patient Instructions Indication:Non-smoker Start:10-Oct-2018 Instruction Type:Provider Instructions for Treatment How to access health informa tion online Indication:BMI 22.0-22.9, adult Start:10-Aug-2018 Instruction Type:Patient Education How to access health informa tion online - Detail Indication:BMI 22.0-22.9, adult Start:10-Aug-2018 Instruction Type:Patient Education Patient Instructions Indication:BMI 22.0-22.9, adult Start:10-Aug-2018 Instruction Type:Provider Instructions for Treatment How to access health informa tion online Indication:Non-smoker Start:07-Feb-2018 Instruction Type:Patient Education How to access health informa tion online - Detail Indication:Non-smoker Start:07-Feb-2018 Instruction Type:Patient Education Patient Instructions Indication:Non-smoker Start:07-Feb-2018 Instruction Type:Provider Instructions for Treatment How to access health informa tion online Indication:Non-smoker Start:06-Oct-2017 Instruction Type:Patient Education Patient Instructions Indication:Non-smoker Start:06-Oct-2017 Instruction Type:Provider Instructions for Treatment How to access health informa tion online Indication:Non-smoker Start:03-Jun-2017 Instruction Type:Patient Education How to access health informa tion online - Detail Indication:Non-smoker Start:03-Jun-2017 Instruction Type:Patient Education Patient Instructions Indication:Non-smoker Start:03-Jun-2017 Instruction Type:Provider Instructions for Treatment How to access health informa tion online Indication:Non-smoker Start:24-Feb-2017 Instruction Type:Patient Education How to access health informa tion online - Detail Indication:Non-smoker Start:24-Feb-2017 Instruction Type:Patient Education Patient Instructions Indication:Non-smoker Start:24-Feb-2017 Instruction Type:Provider Instructions for Treatment How to access health informa tion online Indication:Non-smoker Start:21-Oct-2016 Instruction Type:Patient Education How to access health informa tion online - Detail Indication:Non-smoker Start:21-Oct-2016 Instruction Type:Patient Education Patient Instructions Indication:Non-smoker Start:21-Oct-2016 Instruction Type:Provider Instructions for Treatment How to access health informa tion online Indication:Non-smoker Start:21-Jul-2016 Instruction Type:Patient Education How to access health informa tion online - Detail Indication:Non-smoker Start:21-Jul-2016 Instruction Type:Patient Education Patient Instructions Indication:Non-smoker Start:21-Jul-2016 Instruction Type:Provider Instructions for Treatment How to access health informa tion online Indication:Hypercholesteremia Start:23-Dec-2015 Instruction Type:Patient Education How to access health informa tion online - Detail Indication:Hypercholesteremia Start:23-Dec-2015 Instruction Type:Patient Education Patient Instructions Indication:Hypercholesteremia Start:23-Dec-2015 Instruction Type:Provider Instructions for Treatment How to access health informa tion online Indication:Encounter for Medicare annual wellness exam Start:03-Oct-2015 Instruction Type:Patient Education How to access health informa tion online - Detail Indication:Encounter for Medicare annual wellness exam Start:03-Oct-2015 Instruction Type:Patient Education Patient Instructions Indication:Encounter for Medicare annual wellness exam Start:03-Oct-2015 Instruction Type:Provider Instructions for Treatment How to access health informa tion online Indication:Hypercholesteremia Start:05-Sep-2015 Instruction Type:Patient Education How to access health informa tion online - Detail Indication:Hypercholesteremia Start:05-Sep-2015 Instruction Type:Patient Education Patient Instructions Indication:Hypercholesteremia Start:05-Sep-2015 Instruction Type:Provider Instructions for Treatment How to access health informa tion online Indication:Vitamin D deficiency Start:05-Jun-2015 Instruction Type:Patient Education How to access health informa tion online - Detail Indication:Vitamin D deficiency Start:05-Jun-2015 Instruction Type:Patient Education Patient Instructions Indication:Vitamin D deficiency Start:05-Jun-2015 Instruction Type:Provider Instructions for Treatment How to access health informa tion online Indication:Hypercholesteremia Start:06-Mar-2015 Instruction Type:Patient Education How to access health informa tion online - Detail Indication:Hypercholesteremia Start:06-Mar-2015 Instruction Type:Patient Education Patient Instructions Indication:Hypercholesteremia Start:06-Mar-2015 Instruction Type:Provider Instructions for Treatment How to access health informa tion online Indication:Depressive disorder Start:27-Nov-2014 Instruction Type:Patient Education How to access health informa tion online - Detail Indication:Depressive disorder Start:27-Nov-2014 Instruction Type:Patient Education Patient Instructions Indication:Depressive disorder Start:27-Nov-2014 Instruction Type:Provider Instructions for Treatment Patient Instructions Indication:Vitamin D deficiency Start:20-Jul-2014 Instruction Type:Provider Instructions for Treatment Patient Instructions Indication:Encounter for Medicare annual wellness exam Start:06-Apr-2014 Instruction Type:Provider Instructions for Treatment Name Dates Details How to Access Health Informa tion Online using Patient Portal and [employer] Apps Indication:Non-smoker Start:06-Mar-2020 Instruction Type:Patient Education Patient Instructions Indication:Non-smoker Start:06-Mar-2020 Instruction Type:Provider Instructions for Treatment Patient Instructions Indication:Coronavirus infection Start:04-Mar-2020 Instruction Type:Provider Instructions for Treatment How to Access Health Informa tion Online using Patient Portal and [employer] Apps Indication:Coronavirus infection Start:04-Mar-2020 Instruction Type:Patient Education How to Access Health Informa tion Online using Patient Portal and [employer]rd [employer] Apps Indication:Non-smoker Start:19-Feb-2020 Instruction Type:Patient Education Patient Instructions Indication:Non-smoker Start:19-Feb-2020 Instruction Type:Provider Instructions for Treatment How to access health informa tion online Indication:Non-smoker Start:18-Aug-2019 Instruction Type:Patient Education How to access health informa tion online - Detail Indication:Non-smoker Start:18-Aug-2019 Instruction Type:Patient Education Patient Instructions Indication:Non-smoker Start:18-Aug-2019 Instruction Type:Provider Instructions for Treatment How to access health informa tion online Indication:Non-smoker Start:09-Feb-2019 Instruction Type:Patient Education How to access health informa tion online - Detail Indication:Non-smoker Start:09-Feb-2019 Instruction Type:Patient Education Patient Instructions Indication:Non-smoker Start:09-Feb-2019 Instruction Type:Provider Instructions for Treatment How to access health informa tion online Indication:BMI 22.0-22.9, adult Start:19-Oct-2018 Instruction Type:Patient Education How to access health informa tion online - Detail Indication:BMI 22.0-22.9, adult Start:19-Oct-2018 Instruction Type:Patient Education Patient Instructions Indication:BMI 22.0-22.9, adult Start:19-Oct-2018 Instruction Type:Provider Instructions for Treatment How to access health informa tion online Indication:Non-smoker Start:10-Oct-2018 Instruction Type:Patient Education How to access health informa tion online - Detail Indication:Non-smoker Start:10-Oct-2018 Instruction Type:Patient Education Patient Instructions Indication:Non-smoker Start:10-Oct-2018 Instruction Type:Provider Instructions for Treatment How to access health informa tion online Indication:BMI 22.0-22.9, adult Start:10-Aug-2018 Instruction Type:Patient Education How to access health informa tion online - Detail Indication:BMI 22.0-22.9, adult Start:10-Aug-2018 Instruction Type:Patient Education Patient Instructions Indication:BMI 22.0-22.9, adult Start:10-Aug-2018 Instruction Type:Provider Instructions for Treatment How to access health informa tion online Indication:Non-smoker Start:07-Feb-2018 Instruction Type:Patient Education How to access health informa tion online - Detail Indication:Non-smoker Start:07-Feb-2018 Instruction Type:Patient Education Patient Instructions Indication:Non-smoker Start:07-Feb-2018 Instruction Type:Provider Instructions for Treatment How to access health informa tion online Indication:Non-smoker Start:06-Oct-2017 Instruction Type:Patient Education Patient Instructions Indication:Non-smoker Start:06-Oct-2017 Instruction Type:Provider Instructions for Treatment How to access health informa tion online Indication:Non-smoker Start:03-Jun-2017 Instruction Type:Patient Education How to access health informa tion online - Detail Indication:Non-smoker Start:03-Jun-2017 Instruction Type:Patient Education Patient Instructions Indication:Non-smoker Start:03-Jun-2017 Instruction Type:Provider Instructions for Treatment How to access health informa tion online Indication:Non-smoker Start:24-Feb-2017 Instruction Type:Patient Education How to access health informa tion online - Detail Indication:Non-smoker Start:24-Feb-2017 Instruction Type:Patient Education Patient Instructions Indication:Non-smoker Start:24-Feb-2017 Instruction Type:Provider Instructions for Treatment How to access health informa tion online Indication:Non-smoker Start:21-Oct-2016 Instruction Type:Patient Education How to access health informa tion online - Detail Indication:Non-smoker Start:21-Oct-2016 Instruction Type:Patient Education Patient Instructions Indication:Non-smoker Start:21-Oct-2016 Instruction Type:Provider Instructions for Treatment How to access health informa tion online Indication:Non-smoker Start:21-Jul-2016 Instruction Type:Patient Education How to access health informa tion online - Detail Indication:Non-smoker Start:21-Jul-2016 Instruction Type:Patient Education Patient Instructions Indication:Non-smoker Start:21-Jul-2016 Instruction Type:Provider Instructions for Treatment How to access health informa tion online Indication:Hypercholesteremia Start:23-Dec-2015 Instruction Type:Patient Education How to access health informa tion online - Detail Indication:Hypercholesteremia Start:23-Dec-2015 Instruction Type:Patient Education Patient Instructions Indication:Hypercholesteremia Start:23-Dec-2015 Instruction Type:Provider Instructions for Treatment How to access health informa tion online Indication:Encounter for Medicare annual wellness exam Start:03-Oct-2015 Instruction Type:Patient Education How to access health informa tion online - Detail Indication:Encounter for Medicare annual wellness exam Start:03-Oct-2015 Instruction Type:Patient Education Patient Instructions Indication:Encounter for Medicare annual wellness exam Start:03-Oct-2015 Instruction Type:Provider Instructions for Treatment How to access health informa tion online Indication:Hypercholesteremia Start:05-Sep-2015 Instruction Type:Patient Education How to access health informa tion online - Detail Indication:Hypercholesteremia Start:05-Sep-2015 Instruction Type:Patient Education Patient Instructions Indication:Hypercholesteremia Start:05-Sep-2015 Instruction Type:Provider Instructions for Treatment How to access health informa tion online Indication:Vitamin D deficiency Start:05-Jun-2015 Instruction Type:Patient Education How to access health informa tion online - Detail Indication:Vitamin D deficiency Start:05-Jun-2015 Instruction Type:Patient Education Patient Instructions Indication:Vitamin D deficiency Start:05-Jun-2015 Instruction Type:Provider Instructions for Treatment How to access health informa tion online Indication:Hypercholesteremia Start:06-Mar-2015 Instruction Type:Patient Education How to access health informa tion online - Detail Indication:Hypercholesteremia Start:06-Mar-2015 Instruction Type:Patient Education Patient Instructions Indication:Hypercholesteremia Start:06-Mar-2015 Instruction Type:Provider Instructions for Treatment How to access health informa tion online Indication:Depressive disorder Start:27-Nov-2014 Instruction Type:Patient Education How to access health informa tion online - Detail Indication:Depressive disorder Start:27-Nov-2014 Instruction Type:Patient Education Patient Instructions Indication:Depressive disorder Start:27-Nov-2014 Instruction Type:Provider Instructions for Treatment Patient Instructions Indication:Vitamin D deficiency Start:20-Jul-2014 Instruction Type:Provider Instructions for Treatment Patient Instructions Indication:Encounter for Medicare annual wellness exam Start:06-Apr-2014 Instruction Type:Provider Instructions for Treatment Name Dates Details How to access health informa tion online Indication:Non-smoker Start:10-Oct-2018 Instruction Type:Patient Education How to access health informa tion online - Detail Indication:Non-smoker Start:10-Oct-2018 Instruction Type:Patient Education Patient Instructions Indication:Non-smoker Start:10-Oct-2018 Instruction Type:Provider Instructions for Treatment How to access health informa tion online Indication:BMI 22.0-22.9, adult Start:10-Aug-2018 Instruction Type:Patient Education How to access health informa tion online - Detail Indication:BMI 22.0-22.9, adult Start:10-Aug-2018 Instruction Type:Patient Education Patient Instructions Indication:BMI 22.0-22.9, adult Start:10-Aug-2018 Instruction Type:Provider Instructions for Treatment How to access health informa tion online Indication:Non-smoker Start:07-Feb-2018 Instruction Type:Patient Education How to access health informa tion online - Detail Indication:Non-smoker Start:07-Feb-2018 Instruction Type:Patient Education Patient Instructions Indication:Non-smoker Start:07-Feb-2018 Instruction Type:Provider Instructions for Treatment How to access health informa tion online Indication:Non-smoker Start:06-Oct-2017 Instruction Type:Patient Education Patient Instructions Indication:Non-smoker Start:06-Oct-2017 Instruction Type:Provider Instructions for Treatment How to access health informa tion online Indication:Non-smoker Start:03-Jun-2017 Instruction Type:Patient Education How to access health informa tion online - Detail Indication:Non-smoker Start:03-Jun-2017 Instruction Type:Patient Education Patient Instructions Indication:Non-smoker Start:03-Jun-2017 Instruction Type:Provider Instructions for Treatment How to access health informa tion online Indication:Non-smoker Start:24-Feb-2017 Instruction Type:Patient Education How to access health informa tion online - Detail Indication:Non-smoker Start:24-Feb-2017 Instruction Type:Patient Education Patient Instructions Indication:Non-smoker Start:24-Feb-2017 Instruction Type:Provider Instructions for Treatment How to access health informa tion online Indication:Non-smoker Start:21-Oct-2016 Instruction Type:Patient Education How to access health informa tion online - Detail Indication:Non-smoker Start:21-Oct-2016 Instruction Type:Patient Education Patient Instructions Indication:Non-smoker Start:21-Oct-2016 Instruction Type:Provider Instructions for Treatment How to access health informa tion online Indication:Non-smoker Start:21-Jul-2016 Instruction Type:Patient Education How to access health informa tion online - Detail Indication:Non-smoker Start:21-Jul-2016 Instruction Type:Patient Education Patient Instructions Indication:Non-smoker Start:21-Jul-2016 Instruction Type:Provider Instructions for Treatment How to access health informa tion online Indication:Hypercholesteremia Start:23-Dec-2015 Instruction Type:Patient Education How to access health informa tion online - Detail Indication:Hypercholesteremia Start:23-Dec-2015 Instruction Type:Patient Education Patient Instructions Indication:Hypercholesteremia Start:23-Dec-2015 Instruction Type:Provider Instructions for Treatment How to access health informa tion online Indication:Encounter for Medicare annual wellness exam Start:03-Oct-2015 Instruction Type:Patient Education How to access health informa tion online - Detail Indication:Encounter for Medicare annual wellness exam Start:03-Oct-2015 Instruction Type:Patient Education Patient Instructions Indication:Encounter for Medicare annual wellness exam Start:03-Oct-2015 Instruction Type:Provider Instructions for Treatment How to access health informa tion online Indication:Hypercholesteremia Start:05-Sep-2015 Instruction Type:Patient Education How to access health informa tion online - Detail Indication:Hypercholesteremia Start:05-Sep-2015 Instruction Type:Patient Education Patient Instructions Indication:Hypercholesteremia Start:05-Sep-2015 Instruction Type:Provider Instructions for Treatment How to access health informa tion online Indication:Vitamin D deficiency Start:05-Jun-2015 Instruction Type:Patient Education How to access health informa tion online - Detail Indication:Vitamin D deficiency Start:05-Jun-2015 Instruction Type:Patient Education Patient Instructions Indication:Vitamin D deficiency Start:05-Jun-2015 Instruction Type:Provider Instructions for Treatment How to access health informa tion online Indication:Hypercholesteremia Start:06-Mar-2015 Instruction Type:Patient Education How to access health informa tion online - Detail Indication:Hypercholesteremia Start:06-Mar-2015 Instruction Type:Patient Education Patient Instructions Indication:Hypercholesteremia Start:06-Mar-2015 Instruction Type:Provider Instructions for Treatment How to access health informa tion online Indication:Depressive disorder Start:27-Nov-2014 Instruction Type:Patient Education How to access health informa tion online - Detail Indication:Depressive disorder Start:27-Nov-2014 Instruction Type:Patient Education Patient Instructions Indication:Depressive disorder Start:27-Nov-2014 Instruction Type:Provider Instructions for Treatment Patient Instructions Indication:Vitamin D deficiency Start:20-Jul-2014 Instruction Type:Provider Instructions for Treatment Patient Instructions Indication:Encounter for Medicare annual wellness exam Start:06-Apr-2014 Instruction Type:Provider Instructions for Treatment Name Dates Details How to access health informa tion online Indication:Non-smoker Start:07-Feb-2018 Instruction Type:Patient Education How to access health informa tion online - Detail Indication:Non-smoker Start:07-Feb-2018 Instruction Type:Patient Education Patient Instructions Indication:Non-smoker Start:07-Feb-2018 Instruction Type:Provider Instructions for Treatment How to access health informa tion online Indication:Non-smoker Start:06-Oct-2017 Instruction Type:Patient Education Patient Instructions Indication:Non-smoker Start:06-Oct-2017 Instruction Type:Provider Instructions for Treatment How to access health informa tion online Indication:Non-smoker Start:03-Jun-2017 Instruction Type:Patient Education How to access health informa tion online - Detail Indication:Non-smoker Start:03-Jun-2017 Instruction Type:Patient Education Patient Instructions Indication:Non-smoker Start:03-Jun-2017 Instruction Type:Provider Instructions for Treatment How to access health informa tion online Indication:Non-smoker Start:24-Feb-2017 Instruction Type:Patient Education How to access health informa tion online - Detail Indication:Non-smoker Start:24-Feb-2017 Instruction Type:Patient Education Patient Instructions Indication:Non-smoker Start:24-Feb-2017 Instruction Type:Provider Instructions for Treatment How to access health informa tion online Indication:Non-smoker Start:21-Oct-2016 Instruction Type:Patient Education How to access health informa tion online - Detail Indication:Non-smoker Start:21-Oct-2016 Instruction Type:Patient Education Patient Instructions Indication:Non-smoker Start:21-Oct-2016 Instruction Type:Provider Instructions for Treatment How to access health informa tion online Indication:Non-smoker Start:21-Jul-2016 Instruction Type:Patient Education How to access health informa tion online - Detail Indication:Non-smoker Start:21-Jul-2016 Instruction Type:Patient Education Patient Instructions Indication:Non-smoker Start:21-Jul-2016 Instruction Type:Provider Instructions for Treatment How to access health informa tion online Indication:Hypercholesteremia Start:23-Dec-2015 Instruction Type:Patient Education How to access health informa tion online - Detail Indication:Hypercholesteremia Start:23-Dec-2015 Instruction Type:Patient Education Patient Instructions Indication:Hypercholesteremia Start:23-Dec-2015 Instruction Type:Provider Instructions for Treatment How to access health informa tion online Indication:Encounter for Medicare annual wellness exam Start:03-Oct-2015 Instruction Type:Patient Education How to access health informa tion online - Detail Indication:Encounter for Medicare annual wellness exam Start:03-Oct-2015 Instruction Type:Patient Education Patient Instructions Indication:Encounter for Medicare annual wellness exam Start:03-Oct-2015 Instruction Type:Provider Instructions for Treatment How to access health informa tion online Indication:Hypercholesteremia Start:05-Sep-2015 Instruction Type:Patient Education How to access health informa tion online - Detail Indication:Hypercholesteremia Start:05-Sep-2015 Instruction Type:Patient Education Patient Instructions Indication:Hypercholesteremia Start:05-Sep-2015 Instruction Type:Provider Instructions for Treatment How to access health informa tion online Indication:Vitamin D deficiency Start:05-Jun-2015 Instruction Type:Patient Education How to access health informa tion online - Detail Indication:Vitamin D deficiency Start:05-Jun-2015 Instruction Type:Patient Education Patient Instructions Indication:Vitamin D deficiency Start:05-Jun-2015 Instruction Type:Provider Instructions for Treatment How to access health informa tion online Indication:Hypercholesteremia Start:06-Mar-2015 Instruction Type:Patient Education How to access health informa tion online - Detail Indication:Hypercholesteremia Start:06-Mar-2015 Instruction Type:Patient Education Patient Instructions Indication:Hypercholesteremia Start:06-Mar-2015 Instruction Type:Provider Instructions for Treatment How to access health informa tion online Indication:Depressive disorder Start:27-Nov-2014 Instruction Type:Patient Education How to access health informa tion online - Detail Indication:Depressive disorder Start:27-Nov-2014 Instruction Type:Patient Education Patient Instructions Indication:Depressive disorder Start:27-Nov-2014 Instruction Type:Provider Instructions for Treatment Patient Instructions Indication:Vitamin D deficiency Start:20-Jul-2014 Instruction Type:Provider Instructions for Treatment Patient Instructions Indication:Encounter for Medicare annual wellness exam Start:06-Apr-2014 Instruction Type:Provider Instructions for Treatment Name Dates Details How to access health informa tion online Indication:BMI 22.0-22.9, adult Start:19-Oct-2018 Instruction Type:Patient Education How to access health informa tion online - Detail Indication:BMI 22.0-22.9, adult Start:19-Oct-2018 Instruction Type:Patient Education Patient Instructions Indication:BMI 22.0-22.9, adult Start:19-Oct-2018 Instruction Type:Provider Instructions for Treatment How to access health informa tion online Indication:Non-smoker Start:10-Oct-2018 Instruction Type:Patient Education How to access health informa tion online - Detail Indication:Non-smoker Start:10-Oct-2018 Instruction Type:Patient Education Patient Instructions Indication:Non-smoker Start:10-Oct-2018 Instruction Type:Provider Instructions for Treatment How to access health informa tion online Indication:BMI 22.0-22.9, adult Start:10-Aug-2018 Instruction Type:Patient Education How to access health informa tion online - Detail Indication:BMI 22.0-22.9, adult Start:10-Aug-2018 Instruction Type:Patient Education Patient Instructions Indication:BMI 22.0-22.9, adult Start:10-Aug-2018 Instruction Type:Provider Instructions for Treatment How to access health informa tion online Indication:Non-smoker Start:07-Feb-2018 Instruction Type:Patient Education How to access health informa tion online - Detail Indication:Non-smoker Start:07-Feb-2018 Instruction Type:Patient Education Patient Instructions Indication:Non-smoker Start:07-Feb-2018 Instruction Type:Provider Instructions for Treatment How to access health informa tion online Indication:Non-smoker Start:06-Oct-2017 Instruction Type:Patient Education Patient Instructions Indication:Non-smoker Start:06-Oct-2017 Instruction Type:Provider Instructions for Treatment How to access health informa tion online Indication:Non-smoker Start:03-Jun-2017 Instruction Type:Patient Education How to access health informa tion online - Detail Indication:Non-smoker Start:03-Jun-2017 Instruction Type:Patient Education Patient Instructions Indication:Non-smoker Start:03-Jun-2017 Instruction Type:Provider Instructions for Treatment How to access health informa tion online Indication:Non-smoker Start:24-Feb-2017 Instruction Type:Patient Education How to access health informa tion online - Detail Indication:Non-smoker Start:24-Feb-2017 Instruction Type:Patient Education Patient Instructions Indication:Non-smoker Start:24-Feb-2017 Instruction Type:Provider Instructions for Treatment How to access health informa tion online Indication:Non-smoker Start:21-Oct-2016 Instruction Type:Patient Education How to access health informa tion online - Detail Indication:Non-smoker Start:21-Oct-2016 Instruction Type:Patient Education Patient Instructions Indication:Non-smoker Start:21-Oct-2016 Instruction Type:Provider Instructions for Treatment How to access health informa tion online Indication:Non-smoker Start:21-Jul-2016 Instruction Type:Patient Education How to access health informa tion online - Detail Indication:Non-smoker Start:21-Jul-2016 Instruction Type:Patient Education Patient Instructions Indication:Non-smoker Start:21-Jul-2016 Instruction Type:Provider Instructions for Treatment How to access health informa tion online Indication:Hypercholesteremia Start:23-Dec-2015 Instruction Type:Patient Education How to access health informa tion online - Detail Indication:Hypercholesteremia Start:23-Dec-2015 Instruction Type:Patient Education Patient Instructions Indication:Hypercholesteremia Start:23-Dec-2015 Instruction Type:Provider Instructions for Treatment How to access health informa tion online Indication:Encounter for Medicare annual wellness exam Start:03-Oct-2015 Instruction Type:Patient Education How to access health informa tion online - Detail Indication:Encounter for Medicare annual wellness exam Start:03-Oct-2015 Instruction Type:Patient Education Patient Instructions Indication:Encounter for Medicare annual wellness exam Start:03-Oct-2015 Instruction Type:Provider Instructions for Treatment How to access health informa tion online Indication:Hypercholesteremia Start:05-Sep-2015 Instruction Type:Patient Education How to access health informa tion online - Detail Indication:Hypercholesteremia Start:05-Sep-2015 Instruction Type:Patient Education Patient Instructions Indication:Hypercholesteremia Start:05-Sep-2015 Instruction Type:Provider Instructions for Treatment How to access health informa tion online Indication:Vitamin D deficiency Start:05-Jun-2015 Instruction Type:Patient Education How to access health informa tion online - Detail Indication:Vitamin D deficiency Start:05-Jun-2015 Instruction Type:Patient Education Patient Instructions Indication:Vitamin D deficiency Start:05-Jun-2015 Instruction Type:Provider Instructions for Treatment How to access health informa tion online Indication:Hypercholesteremia Start:06-Mar-2015 Instruction Type:Patient Education How to access health informa tion online - Detail Indication:Hypercholesteremia Start:06-Mar-2015 Instruction Type:Patient Education Patient Instructions Indication:Hypercholesteremia Start:06-Mar-2015 Instruction Type:Provider Instructions for Treatment How to access health informa tion online Indication:Depressive disorder Start:27-Nov-2014 Instruction Type:Patient Education How to access health informa tion online - Detail Indication:Depressive disorder Start:27-Nov-2014 Instruction Type:Patient Education Patient Instructions Indication:Depressive disorder Start:27-Nov-2014 Instruction Type:Provider Instructions for Treatment Patient Instructions Indication:Vitamin D deficiency Start:20-Jul-2014 Instruction Type:Provider Instructions for Treatment Patient Instructions Indication:Encounter for Medicare annual wellness exam Start:06-Apr-2014 Instruction Type:Provider Instructions for Treatment Chief Complaint Chief Complaint Description Start Date lower back pain Preliminary chief co mplaint data, not yet signed by the author as of Advance Directives No Advanced Directives Records Found Name Dates Details Immunization Registry [place] - Effective on 10/27/2021. Expiration date unspecified Effective:27-Oct-2021 Name Dates Details Immunization Registry [place] - Effective on 10/27/2021. Expiration date unspecified Effective:27-Oct-2021 Name Dates Details Immunization Registry [place] - Effective on 10/27/2021. Expiration date unspecified Effective:27-Oct-2021 Name Dates Details Immunization Registry [place] - Effective on 01/12/2022. Expiration date unspecified Effective:12-Jan-2022 Advance Directive Response Recorded Date/ Time Name of Medical Power of Revenue Investigator unknown March 10, 2022 9:16pm Living Will Yes March 10 9:16pm Power of Revenue Investigator Yes March 10, 023 9:16pm Advance Directive Response Recorded Date/ Time Name of Medical Power of Revenue Investigator Claus Lemus March 11, 2022 12:08am Living Will Yes March 11 12:08am Power of Revenue Investigator Yes March 11, 023 12:08am Name Dates Details Immunization Registry [place] - Effective on 01/12/2022. Expiration date unspecified Effective:12-Jan-2022 Name Dates Details Immunization Registry [place] - Effective on 01/12/2022. Expiration date unspecified Effective:12-Jan-2022 Name Dates Details Immunization Registry [place] - Effective on 01/12/2022. Expiration date unspecified Effective:12-Jan-2022 Name Dates Details Immunization Registry [place] - Effective on 01/12/2022. Expiration date unspecified Effective:12-Jan-2022 Name Dates Details Immunization Registry [place] - Effective on 01/12/2022. Expiration date unspecified Effective:12-Jan-2022 Name Dates Details Immunization Registry [place] - Effective on 01/12/2022. Expiration date unspecified Effective:12-Jan-2022 Name Dates Details Immunization Registry [place] - Effective on 01/12/2022. Expiration date unspecified Effective:12-Jan-2022 Name Dates Details Immunization Registry [place] - Effective on 01/12/2022. Expiration date unspecified Effective:12-Jan-2022 Name Dates Details Immunization Registry [place] - Effective on 01/12/2022. Expiration date unspecified Effective:12-Jan-2022 Name Dates Details Immunization Registry [place] - Effective on 01/12/2022. Expiration date unspecified Effective:12-Jan-2022 Name Dates Details Immunization Registry [place] - Effective on 01/12/2022. Expiration date unspecified Effective:12-Jan-2022 Advance Directive Response Recorded Date/ Time Living Will Yes March 11 1:08am Power of Revenue Investigator Yes March 11, 2 023 1:08am Name Dates Details Immunization Registry [place] - Effective on 01/12/2022. Expiration date unspecified Effective:12-Jan-2022 Advance Directive Response Recorded Date/ Time Living Will Yes February 15, 2 024 6:03pm Do you have a Healthcare Pow er of Revenue Investigator? Yes February 16, 2024 6:03pm Name of Medical Power of Revenue Investigator Irwin Jaramillo er February 16, 2024 6:03pm Living Will Yes May 03, 2 025 6:57pm Do you have a Healthcare Pow er of Revenue Investigator? Yes 2024 6:57pm Name of Medical Power of Revenue Investigator cousin ([facility]) 2024 6:57pm Advance Directive Response Recorded Date/ Time Do you have a Healthcare Power of Revenue Investigator? No September 05, 2024 9:32pm Assessments There may be information available, but it has not been provided by the sender. Review of System There may be information available, but it has not been provided by the sender. Family History No Family History Records Found Relationship Condition Age at Onset Recorded Date/T dano mother Leo's optic atrophy Unknown aunt Leo's optic atrophy Unknown uncle Leo's optic atrophy Unknown History of Present Illness There may be information available, but it has not been provided by the sender. 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 UTI. 2024 4:14pm GENERAL ILLNESS 2024 4:18pm [place]. UTI. May 04, 2024 7:02pm [place]. UTI. May 05, 2024 5:29pm [place]. UTI. May 06, 2024 10:1 4am xray May 17, 2024 10: 25am OTHER SPECIFIED SYMPTOMS AND SIGNS INVOL VING C&R June 01, 2024 12:43pm Reason for Visit Admit Date Acute kidney injury 2024 4:14pm BPH (benign prostatic hyperplasia) Febru gilbert 2024 4:14pm Generalized weakness 2024 4:14pm Lactic acidosis 2024 4:14pm UTI (urinary tract infection) April 092024 4:14pm Chief Complaint Admit Date xray May 17, 2024 10: 25am OTHER SPECIFIED SYMPTOMS AND SIGNS INVOL VING C&R June 01, 2024 12:43pm OTHER SPECIFIED SYMPTOMS AND SIGNS INVOL VING C&R June 01, 2024 1:07pm sob September 05, 2024 6:17p m Summary Purpose Additional Source Comments Reason for Visit (unrecogniz ed section and content) Reason For Visit Description New - 1st visit with practice Preliminary reason f or visit data, not yet signed by the author as of lower back pain Goals (unrecognized section and content) Goals may be documented in a n alternate sectionGoals may be documented in an alternate sectionGoals may be documented in an alternate section (unrecognized sect ion and content) No Status Records FoundNo Status Records Found INFORMATION SOURCE (unrecogn ized section and content) DATE CREATED AUTHOR 05/13/2022 [facility] DATE CREATED AUTHOR AUTHOR'S ORGANMERI ATION 09/18/2024 [facility] Care Teams (unrecognized sec tion and content) Team Status: Active Member Role Status Dates Dr. Marci Rose DO Family Provider Active Dr. Marci Rose , DO Primary Care Provider Active Team Status: Inactive Member Role Status Dates Dr. Marci Rose DO Primary Care Provider Active Dr. Valentin Gonzalez MD Attending Provider Active Team Status: Active Member Role Status Dates Dr. Marci Rose DO Primary Care Provider Active Dr. Sha Baumann MD Attending Provider Active Team Status: Inactive Member Role Status Dates Dr. Marci Rose DO Primary Care Pr ovider, Attending Provider, Referring Provider Active Team Status: Active Member Role Status Dates Dr. Marci Rose DO Primary Care Provider Active Team Status: Inactive Member Role Status Dates Dr. Marci Rose DO Primary Care Provider Active Start: February 16, 2024 End: February 16, 2024 Dr. Yevgeniy Andrew MD Attending Provider Active Start: February 16, 2024 End: February 16, 2024 Dr. Yevgeniy Andrew MD Emergency Provider Active Start: February 16, 2024 End: February 16, 2024 Team Status: Inactive Member Role Status Dates Dr. Marci Rose DO Primary Care Provider Active Start: March 02, 2024 End: March 02, 2024 Dr. Marci Rose DO Attending Provider Active Start: March 02, 2024 End: March 02, 2024 Team Status: Inactive Member Role Status Dates Dr. Marci Rose DO Primary Care Provider Active Start: March 03, 2024 End: March 03, 2024 Dr. Marci Rose DO Attending Provider Active Start: March 03, 2024 End: March 03, 2024 Dr. Marci Rose DO Referring Provider Active Start: March 03, 2024 End: March 03, 2024 Team Status: Inactive Member Role Status Dates Dr. Marci Rose DO Primary Care Provider Active Start: March 15, 2024 End: March 15, 2024 Dr. Marci Rose DO Attending Provider Active Start: March 15, 2024 End: March 15, 2024 Dr. Marci Rose DO Referring Provider Active Start: March 15, 2024 End: March 15, 2024 Team Status: Active Member Role Status Dates Dr. Marci Rose DO Primary Care Provider Active Start: March 15, 2024 Dr. Angi Jones MD Attending Provider Activ e Start: March 15, 2024 Team Status: Inactive Member Role Status Dates Dr. Marci Rose DO Primary Care Provider Active Start: 2024 End: May 06, 2024 Martin Meade MD Emergency Provider Active Star t: 2024 End: May 06, 2024 Dr. Sha Wilson , Admit Provider Active Star t: 2024 End: May 06, 2024 Dr. Sha Wilson DO Other Provider Active Star t: 2024 End: May 06, 2024 Dr. Aime Sierra , Attending Provider Active Start: 2024 End: May 06, 2024 Team Status: Active Member Role Status Dates Dr. Marci Rose DO Primary Care Provider Active Start: 2024 Martin Meade MD Emergency Provider Active Star t: 2024 Dr. Sha Wilson DO Attending Provider Active Start: 2024 Team Status: Active Member Role Status Dates Dr. Marci Rose DO Primary Care Provider Active Start: May 04, 2024 Martin Meade MD Emergency Provider Active Star t: May 04, 2024 Dr. Sha Wilson , Admit Provider Active Star t: May 04, 2024 Dr. Sha Wilson DO Other Provider Active Star t: May 04, 2024 Dr. Aime Sierra DO Attending Provider Active Start: May 04, 2024 Dr. Aime Sierra , DO Other Provider Active S tart: May 04, 2024 Team Status: Active Member Role Status Dates Dr. Marci Rose DO Primary Care Provider Active Start: May 05, 2024 Martin Meade MD Emergency Provider Active Star t: May 05, 2024 Dr. Sha Wilson DO Admit Provider Active Star t: May 05, 2024 Dr. Sha Wilson , Other Provider Active Star t: May 05, 2024 Dr. Aime Sierra , DO Attending Provider Active Start: May 05, 2024 Dr. Aime Sierra , DO Other Provider Active S tart: May 05, 2024 Team Status: Active Member Role Status Dates Dr. Marci Rose DO Primary Care Provider Active Start: May 06, 2024 Martin Meade MD Emergency Provider Active Star t: May 06, 2024 Dr. Sha Wilson , Admit Provider Active Star t: May 06, 2024 Dr. Sha Wilson , Other Provider Active Star t: May 06, 2024 Dr. Aime Sierra DO Attending Provider Active Start: May 06, 2024 Dr. Aime Sierra DO Other Provider Active S tart: May 06, 2024 Team Status: Inactive Member Role Status Dates Dr. Marci Rose DO Primary Care Provider Active Start: May 17, 2024 End: May 17, 2024 Dr. Valentin Gonzalez MD Attending Provider Active S tart: May 17, 2024 End: May 17, 2024 Team Status: Inactive Member Role Status Dates Dr. Marci Rose DO Primary Care Provider Active Start: June 01, 2024 End: June 01, 2024 Dr. Marci Rose DO Attending Provider Active Start: June 01, 2024 End: June 01, 2024 Dr. Marci Rose DO Referring Provider Active Start: June 01, 2024 End: June 01, 2024 Team Status: Active Member Role/Relationship Status Dates Dr. Marci Rose DO Primary Care Provider Active Team Status: Inactive Member Role/Relationship Status Dates Dr. Marci Rose DO Primary Care Provider Active Start: May 17, 2024 End: May 17, 2024 Dr. Valentin Gonzalez MD Attending Provider Active S tart: May 17, 2024 End: May 17, 2024 Team Status: Inactive Member Role/Relationship Status Dates Dr. Marci Rose DO Primary Care Provider Active Start: June 01, 2024 End: June 01, 2024 Dr. Marci Rose DO Attending Provider Active Start: June 01, 2024 End: June 01, 2024 Dr. Marci Rose DO Referring Provider Active Start: June 01, 2024 End: June 01, 2024 Team Status: Active Member Role/Relationship Status Dates Dr. Marci Rose DO Primary Care Provider Active Start: June 01, 2024 Dr. Marci Rose DO Referring Provider Active Start: June 01, 2024 Dr. Demetrius Hurt DO Attending Provider Active S tart: June 01, 2024 Team Status: Inactive Member Role/Relationship Status Dates Dr. Marci Rose , DO Primary Care Provider Active Start: September 05, 2024 End: September 05, 2024 Dr. Demetri Jacobo , DO Emergency Provider Active Start: September 05, 2024 End: September 05, 2024 FOR RECORDS PERTAINING TO PATIENTS WHO ARE OR HAVE BEEN ENROLLED IN A CHEMICAL DEPENDENCY/SUBSTANCEABUSE PROGRAM, SOME INFORMATION MAY BE OMITTED. This clinical summary was aggregated from multiple sources. Caution should be exercised in using it in the provision of clinical care. This summary normalizes information from multiple sources, and as a consequence, information in this document may materially change the coding, format and clinical context of patient data. In addition, data may be omitted in some cases. CLINICAL DECISIONS SHOULD BE BASED ON THE PRIMARY CLINICAL RECORDS. [facility] [employer] [facility]. provides no warranty or guarantee of the accuracy or completeness of information in this document.
--- NOTE | 2024-09-21 22:20 | EX.ED.DYSGE1 ---
HPI History of Present Illness Chief Complaint: Shortness of Breath Informant: patient Narrative Narrative: Patient is a 79-year-old male with past medical history of hypertension hyperlipidemia hypothyroidism and restrictive lung disease. He states that he checks his pulse ox frequently throughout the day secondary to this history. He reports that when he awoke from sleeping he placed the pulse ox on. He states that initially it read 77% but after about 30 seconds to 1 minute it trended up into the low 90s. He states that he became concerned because of the initially low reading and therefore comes to the ER for evaluation. He states there is been no fevers or chills he denies any known sick contacts and states he feels at his baseline at this time [facility] Medical History BPH (benign prostatic hyperplasia) Acute kidney injury Lactic acidosis UTI (urinary tract infection) Generalized weakness Leo hereditary optic atrophy Back pain Pneumonia, pneumococcal Pneumonia Arthritis HTN (hypertension) Hypothyroid Home Medications ?Medication ?Instructions ?Recorded ?Last Taken ?Type levothyroxine 50 mcg tablet 50 mcg PO DAILY thyroid 10/11/18 Unknown History lisinopril 10 5 - 6.25 mg PO DAILY PRN blood 10/11/18 Unknown History mg-hydrochlorothiazide 12.5 mg pressure tablet paroxetine HCl 30 mg tablet 30 mg PO DAILY mental health 10/11/18 Unknown History simvastatin 10 mg tablet 10 mg PO DAILY cholesterol 10/11/18 Unknown History awwft-[id number]-epa-fish oil-vit D3 1 cap PO DAILY supplement 02/16/24 Unknown History 350 mg-400 mg-1,000 unit capsule tamsulosin 0.4 mg capsule 0.8 mg (2 x 0.4 mg) PO DAILY@1730 05/06/24 Unknown Rx #60 caps ipratropium 0.5 mg-albuterol 3 mg 3 ml inhalation 4X/DAY PRN 09/05/24 Unknown Rx (2.5 mg base)/3 mL nebulization Shortness of breath/wheeze #180 mL soln nebulizer and compressor #1 ea 09/05/24 Unknown Rx albuterol sulfate 90 mcg/actuation 2 puff inhalation Q6H PRN dyspnea 09/21/24 Unknown History aerosol inhaler Allergy/AdvReac Type Severity Reaction Status Date / Time No Known Allergies Allergy Verified 09/21/24 20:51 Family History Mother Leo's hereditary optic atrophy Aunt Leo's hereditary optic atrophy Uncle Leo's hereditary optic atrophy Social History household members: none Smoking Status: Former smoker substance use type: does not use ROS ROS ED Constitutional Constitutional ED: Denies chills or fever(s) Eyes Eyes: Denies change in vision ENT ENT ED: Denies sore throat Cardiovascular Cardiovascular: Denies chest pain or palpitations Respiratory/Chest Respiratory/Chest: Reports cough and dyspnea Gastrointestinal Gastrointestinal: Denies abdominal pain, diarrhea, nausea or vomiting Genitourinary Genitourinary ED: Denies dysuria Musculoskeletal Musculoskeletal: Denies myalgias Integumentary Denies rash Neurologic Neurologic: Denies headache(s) Hematologic/Lymphatic Hematologic/Lymphatic: Denies easy bleeding or easy bruising EXAM Physical Exam Const Vital Signs: 09/21/24 20:45 09/21/24 20:54 09/21/24 21:28 Temperature 98.0 F Temperature Source Temporal Pulse Rate 60 100 Respiratory Rate 16 25 H Respiratory Effort Normal Non-Labored Respiratory Depth Shallow Respiratory Pattern Tachypnea Blood Pressure 135/92 H Blood Pressure Mean 106 Pulse Ox 95 93 Oxygen Delivery Method Room Air Room Air Room Air 09/21/24 22:21 Temperature 97.9 F Temperature Source Pulse Rate 94 Respiratory Rate 25 H Respiratory Effort Respiratory Depth Respiratory Pattern Blood Pressure 145/97 H Blood Pressure Mean 113 Pulse Ox 95 Oxygen Delivery Method Positive well nourished and well developed General Appearance ED: well developed; Negative for pallor HEENT HEENT Narrative: Normocephalic atraumatic No tongue or lip swelling no oral lesions no airway edema or compromise; no secondary findings to suggest infection Eyes PERRL and EOMs intact bilaterally General Eye ED: Negative for scleral icterus Neck supple and no JVD Resp normal respiratory effort Resp Narrative: Breath sounds are diminished throughout with faint expiratory wheeze in the upper lobes and rhonchi noted in the lower lobes. However no signs of respiratory distress Cardio regular rate and regular rhythm GI normal to inspection, nondistended, normoactive bowel sounds, non-tender, non-distended and no masses Auscultation: normoactive bowel sounds Palpation: soft Extremity Extremity Narrative: +2-3 pitting edema to the bilateral lower extremities that is equal and symmetric Negative Homans' sign bilaterally Neuro oriented x3 and CN's II-XII intact bilaterally Sensorium / Orientation: alert Motor Exam: strength 5/5 throughout Psych Mood & Affect: anxious Skin no rashes or lesions noted and no wounds General Skin Exam: Negative for jaundice or pallor MDM MDM MDM Narrative Medical decision making narrative: Patient arrived to the ER hypertensive but has a past medical history of this. He presented no acute respiratory distress satting in the mid 90s on room air. He has known history of restrictive lung disease and reports that his pulse ox was 77% but only for approximately 30 seconds to 1 minute. This most likely was calibration of the pulse ox machine and not true hypoxia as elevated shortly after being placed on the patient's finger and did not remain at a low level. I discussed with patient the potential of basic laboratory studies to rule out acute blood loss anemia or volume overload or pneumonia but his physical exam does not suggest these findings based on his current pulse ox and work of breathing as well as the fact he has known restrictive lung disease. The patient states he just became anxious because of his known history and he was worried that it could worsen but as his vitals have remained stable and his exam is at baseline he does not want further testing and therefore we discharged home and can follow-up with pulmonology as an outpatient to discuss treatment option. History & Record Review Discussion w/independent historian: Patient Discharge Plan Triage Chief Complaint: Shortness of Breath ED Provider: Demetri Jacobo Dx/Rx/DC Orders Clinical Impression: Restrictive lung disease, Hypertension, Hyperlipidemia, Hypothyroidism Instructions: Chest and Lung Problems Prescriptions: No Action simvastatin 10 MG tablet 10 mg PO DAILY levothyroxine 50 MCG tablet 50 mcg PO DAILY paroxetine HCl 30 MG tablet 30 mg PO DAILY lisinopril-hydrochlorothiazide 10-12.5 tablet 5 - 6.25 mg PO DAILY PRN (Reason: blood pressure) albuterol sulfate 90 mcg/actuation HFA aerosol inhaler 2 puff inhalation Q6H PRN (Reason: dyspnea) chocp-0n-muk-epa-fish oil-D3 350 mg-400 mg- 1,000 unit capsule 1 cap PO DAILY tamsulosin 0.4 mg Capsule 0.8 mg PO DAILY@1730 Qty: 60 0RF ipratropium-albuterol 0.5 mg-3 mg(2.5 mg base)/3 mL solution for nebulization 3 ml inhalation 4X/DAY PRN (Reason: Shortness of breath/wheeze) Qty: 180 0RF (DME) nebulizer and compressor Device See Rx Instructions .Route Qty: 1 0RF Rx Instructions: As directed Primary Care Provider: Marci Rose Referrals: Marci Rose DO [Primary Care Provider] - Chirag Escudero MD [Med Staff - Active Staff] - (Restrictive lung disease) Activity Restrictions/Additional Instructions: When you check your pulse ox if it takes 30 seconds to a minute to elevate from a low value to 88% or higher this is okay as it will take time for the machine to calibrate and read properly. If the value is reading low consistently for anywhere from 3 to 5 minutes or longer then your oxygen level is most likely low. Please continue all of your other medications as directed by your doctor. Follow-up with pulmonology to discuss further treatment options. Return to the ER should you have any further concerns Print Language: Belarusian Disposition Disposition: Home, Self Care Discharge Date/Time: 09/21/24 22:31
[2024-09-21 22:21] VITALS: BP 145/97; PULSE 94; RESP 25; TEMP 36.6; O2SAT 95
== END 2024-09-21 22:31 | disposition home or self-care (01) ==
PROVIDERS: Emergency Provider Emergency Medicine; PCP Internal Medicine; Visit Provider Emergency Medicine
DX: J98.4 Other disorders of lung (principal); R06.02 Shortness of breath; I10 Essential (primary) hypertension; E78.5 Hyperlipidemia, unspecified; E03.9 Hypothyroidism, unspecified; N40.0 Benign prostatic hyperplasia without lower urinary tract symptoms; Z79.890 Hormone replacement therapy; Z79.899 Other long term (current) drug therapy; Z87.891 Personal history of nicotine dependence
CPT/HCPCS: 99282

== ENCOUNTER → 2024-09-28 | Outpatient (CLI) | payer MEDICARE, OTHER, SELFPAY ==
[2024-10-02 19:08] LABS: Bluegrass, Kentucky <0.10 kU/L (Class 0); Cat Hair/Dander, Standard 0.12 kU/L (Class 0/I); Dog Epithelia <0.10 kU/L (Class 0); Elm, American White <0.10 kU/L (Class 0); Oak, White <0.10 kU/L (Class 0); Plantain, English <0.10 kU/L (Class 0); Ragweed, Short/Common <0.10 kU/L (Class 0)
== END | disposition home or self-care (01) ==
LOC: LAB 11:16
PROVIDERS: PCP Internal Medicine; Referring Provider Internal Medicine Pulmonary Disease; Visit Provider Internal Medicine Pulmonary Disease
DX: J45.909 Unspecified asthma, uncomplicated (principal)
CPT/HCPCS: 36415; 86003

== ENCOUNTER → 2024-10-12 | Outpatient (CLI) | payer MEDICARE, OTHER, SELFPAY ==
--- NOTE | 2024-10-12 09:51 | RAD_ITS ---
EXAM: Fluoroscopic sniff test. CLINICAL HISTORY: Dyspnea. COMPARISON: Chest x-ray of 09/05/2024.. TECHNIQUE: Fluoroscopic sniff test. Fluoroscopy time: 61 seconds. Dose: 46.4 mGy. RAD/Chest Sniff Test Fluoro Only IMPRESSION: Multiple breathing measures were attempted, including standard sniff test, deep breathing in, deep breathing out, and alteration of abdominal pressure. No diaphragmatic motion was seen. No asymmetry was noted. No paradoxical motion was elicited. Reading Location: [place] [id number]
== END | disposition home or self-care (01) ==
LOC: RAD 09:46
PROVIDERS: PCP Internal Medicine; Referring Provider Internal Medicine Pulmonary Disease; Visit Provider Internal Medicine Pulmonary Disease
DX: R06.00 Dyspnea, unspecified (principal)
CPT/HCPCS: 76000

== ENCOUNTER → 2024-10-24 | Outpatient (CLI) | payer MEDICARE, OTHER, SELFPAY ==
[2024-10-24 11:54] LABS: CRP < 3.00 mg/L (0.0-3.0)
[2024-10-25 15:08] LABS: Angiotensin Convert Enzyme 54 U/L (14-82)
== END | disposition home or self-care (01) ==
LOC: LAB 09:13
PROVIDERS: PCP Internal Medicine; Referring Provider Internal Medicine Pulmonary Disease; Visit Provider Internal Medicine Pulmonary Disease
DX: R06.00 Dyspnea, unspecified (principal)
CPT/HCPCS: 36415; 82164; 85652; 86140

== ENCOUNTER → 2024-10-26 | Outpatient (CLI) | payer MEDICARE, OTHER, SELFPAY ==
[2024-10-26 12:37] LABS: Hematocrit 43.1 % (40-54); Hemoglobin 14.2 g/dL (13.0-16.5); Immature Granulocytes Count 0.030 X10^3/uL (0.0-0.0); Mean Corp Hgb Conc 32.9 g/dL (32-36); Mean Corpuscular Volume 86.9 fL (80-94); Mean Platelet Vol. 12.9 fl (6.2-12.0); NRBC Flagged by Analyzer 0 % (0-5); Platelet Count 142 K/mm3 (150-450); RBC Distribution Width CV 15.1 % (11.6-14.6); RBC Distribution Width SD 48.0 fl (35.1-43.9); Red Blood Count 4.96 M/mm3 (4.6-6.2); White Blood Count 7.6 K/mm3 (4.4-11.0)
== END | disposition home or self-care (01) ==
PROVIDERS: PCP Internal Medicine; Referring Provider Internal Medicine Pulmonary Disease; Visit Provider Internal Medicine Pulmonary Disease
DX: J45.909 Unspecified asthma, uncomplicated (principal)
CPT/HCPCS: 36415; 85025

== ENCOUNTER → 2024-12-06 | Outpatient (CLI) | payer MEDICARE, OTHER, SELFPAY | END | disposition home or self-care (01) | LOC: PSN 08:03 | PROVIDERS: PCP Internal Medicine; Referring Provider Internal Medicine; Visit Provider Internal Medicine | DX: I49.9 Cardiac arrhythmia, unspecified (principal) | CPT/HCPCS: 93225; 93226 ==